=== PATIENT | male | born 1960 | race Caucasian/White ===

== ENCOUNTER 2017-04-18 12:36 | Emergency (ER) | payer OTHER ==
[2017-04-18] MEDS ORDERED: DIAZEPAM 5 MG TAB PO STA (14:56)
[2017-04-18] MEDS ORDERED: HYDROmorphone 1 MG/ML 1 ML SYRINGE IM STA (14:56)
--- NOTE | 2017-04-18 15:02 | ED ---
Back Pain HPI - General Chief Complaint: Back Pain/Injury Stated Complaint: Lower Back Pain Time Seen by Provider: 04/18/17 14:30 Source: patient, family, RN notes reviewed Limitations: no limitations - History of Present Illness Initial Comments: 56-year-old male presenting for low back pain. Patient states history of chronic low back pain. He states today he was bending over to put on his sock and he felt a pop in his right lower back. He had severe pain after this. He states he has radiation of the pain down his right leg. He states he went to the [facility] earlier today who took x-rays which they said were unremarkable. States they gave him a Toradol shot but this not seem to improve his symptoms. They're recommended to come to the ED for further evaluation. He denies any saddle paresthesias. He denies any weakness associated. States it made worse with standing and walking. It is improved with certain sitting positions. He denies any urinary incontinence. MD Complaint: back pain Onset/Timin -: hour(s) Similar Symptoms Previously: Yes Place: home Radiation: right leg Severity: severe Quality: stabbing Consistency: constant Improves With: sitting upright Worsens With: walking Context: bending Associated Symptoms: denies other symptoms Treatments Prior to Arrival: NSAIDS - Related Data Previous Rx's Medication Instructions Recorded Diazepam [Valium] 5 mg PO BID PRN #8 tab 04/18/17 HYDROcodone/APAP 5-325MG [Fountain 1 tab PO Q6HR PRN #16 tab 04/18/17 5-325] Ibuprofen [Motrin] 800 mg PO Q8HR PRN #21 tab 04/18/17 Allergies Allergy/AdvReac Type Severity Reaction Status Date / Time codeine Allergy Unknown Verified 04/18/17 15:29 Childhood Review of Systems ROS Statement: Those systems with pertinent positive or pertinent negative responses have been documented in the HPI. ROS Other: All systems not noted in ROS Statement are negative. Past Medical History Past Medical History: COPD, GERD/Reflux, Hyperlipidemia, Hypertension, Sleep Apnea/CPAP/BIPAP Additional Past Medical History / Comment(s): cpap History of Any Multi-Drug Resistant Organisms: None Reported Past Surgical History: No Surgical Hx Reported Past Psychological History: No Psychological Hx Reported Smoking Status: Current every day smoker Past Alcohol Use History: None Reported Past Drug Use History: None Reported General Exam - General Exam Comments Initial Comments: General: Awake and Alert. No acute distress. Does not appear acutely ill. Eyes: PALMER, No scleral icterus. HENT: Atraumatic, normocephalic. Mucous membranes moist. . Neck: The neck is supple, there is no tenderness or JVD. Trachea midline. Cardiovascular: Regular rate and rhythm. No murmur, rub, or gallop is appreciated. Distal pulses intact. Respiratory: Lungs are clear to auscultation bilaterally. No wheezes, rales, rhonchi. No respiratory distress. Gastrointestinal: Soft, nontender. Nondistended. Musculoskeletal: Right lower back tenderness and spasm. No gross deformity. No strength deficits. Neurological: A&Ox3. There are no obvious motor or sensory deficits. Speech is normal. No saddle paresthesias. Skin: Skin is warm and dry and no rashes or lesions are noted. Psychiatric: Cooperative, appropriate mood & affect, normal judgment. Limitations: no limitations Course Vital Signs 04/18/17 04/18/17 13:09 15:38 Temperature 98.0 F 98.1 F Pulse Rate 81 78 Respiratory 18 17 Rate Blood Pressure 138/71 142/72 O2 Sat by Pulse 95 97 Oximetry Medical Decision Making - Medical Decision Making 56-year-old male presenting for right lower back pain with radiation down the back of the right leg. Under to palpation in right lower back. [facility]. He states his imaging was unremarkable. He has not followed up with an industrial automation specialist for this in the past. Discussed recommendation for orthopedic follow-up for further evaluation and management. Discussed benefit of MRI imaging given the chronicity and acute worsening of this issue. The does not appear to be any evidence of cauda equina syndrome or acute cord compression at this time. Order for cane also provided. Discussed ice, NSAIDs , pain meds, muscle relaxers. Rx provided. Work note provided. Discussed concerning signs symptoms for immediate return to the ED. Patient and family agreeable with plan and discharge home. Disposition Clinical Impression: Right-sided low back pain with sciatica Disposition: HOME SELF-CARE Condition: Stable Instructions: Acute Low Back Pain (ED), Chronic Back Pain (ED) Additional Instructions: Please follow up with Orthopedics. Prescriptions: Diazepam [Valium] 5 mg PO BID PRN #8 tab PRN Reason: back spasm HYDROcodone/APAP 5-325MG [Fountain 5-325] 1 tab PO Q6HR PRN #16 tab PRN Reason: Pain Ibuprofen [Motrin] 800 mg PO Q8HR PRN #21 tab PRN Reason: Pain Referrals: Cecilio Georges DO [Primary Care Provider] - 1-2 days Luiz Ferro DO [Doctor of Osteopathic Medicine] - 1-2 days Time of Disposition: 15:35
[2017-04-18 15:39] VITALS: BP 142/72; PULSE 78; RESP 17; TEMP 98.1
== END 2017-04-18 15:38 | disposition home or self-care (01) ==
LOC: EC 12:36
DX: M54.41 Lumbago with sciatica, right side (principal); F17.200 Nicotine dependence, unspecified, uncomplicated; Z88.5 Allergy status to narcotic agent
CPT/HCPCS: 99283; 96372; J1170

== ENCOUNTER → 2017-05-19 | Outpatient (CLI) | payer OTHER ==
--- NOTE | 2017-05-19 10:14 | MR ---
EXAMINATION TYPE: MR lumbar spine wo con DATE OF EXAM: 05/19/2017 COMPARISON: Outside CT April 20, 2017 HISTORY: Low back pain per order. Chronic low back pain increasing in severity radiating to both legs per patient. TECHNIQUE: Multiplanar, multisequence imaging of the lumbar spine is performed without IV contrast. FINDINGS: Sagittal images of the lumbar spine show vertebral body heights and alignment to appear sat isfactory. Disc desiccation L3-L4 through L5-S1 levels is identified. Moderate disc space narrowing L 5-S1 level is redemonstrated. Posterior disc herniation L5-S1 level is seen on sagittal images. The c onus medullaris is slightly low in position ending at mid L2 level. No suspicious signal or abnormal clumping of lumbosacral nerve roots is present. The bone marrow signal intensity is within normal lester its. Mild multilevel anterior spurring is seen. Axial images show the T12-L1, L1-L2, L2-L3, and L3-L4 levels all to appear within normal limits. Axial images L4-L5 level show mild facet degenerative changes bilaterally. There is central disc prot rusion minimally effacing the anterior thecal sac. There is mild bilateral anterior inferior neural f oraminal narrowing. Axial images at L5-S1 level show broad disc bulge with broad-based central disc protrusion component on axial image 2. Spinal canal is preserved as there is prominent anterior epidural fat. There is mil d to moderate facet degenerative changes bilaterally. There is moderate right and more severe left-si ded neural foraminal narrowing identified, findings most prominent on sagittal images 4 and 5 on the left. No suspicious retroperitoneal findings are seen. IMPRESSION: Multilevel degenerative changes in the lower lumbar spine as detailed above are confirmed with most prominent findings L5-S1 level redemonstrated.
== END | disposition home or self-care (01) ==
LOC: RADMRIMAIN 08:32
PROVIDERS: ATTEND Physician Assistant Medical
DX: M47.817 Spondylosis without myelopathy or radiculopathy, lumbosacral region (principal)
CPT/HCPCS: 72148

== ENCOUNTER → 2017-10-23 | Outpatient (CLI) | payer OTHER ==
--- NOTE | 2017-10-31 11:35 | P.ARTDOP ---
Arterial Doppler LOWER EXTREMITY ARTERIAL DOPPLER: DATE OF SERVICE: 10/23/2017 Reason for study: Bilateral foot pain. Doppler waveforms: Multiphasic bilaterally throughout. Pulse volume recording: Normal configuration. Pressure gradients: Below the knee on the right and lesser so on the left. Ankle-brachial indices: 0.83 on the right and 0.96 on the left. Toe pressures: 95 on the right, 126 on the left Impression: Normal left side. Mild right-sided distal disease. Perfusion quite adequate for healing..
== END | disposition home or self-care (01) ==
LOC: RADUSWWP 12:51
PROVIDERS: ATTEND Family Medicine
DX: M54.16 Radiculopathy, lumbar region (principal)
CPT/HCPCS: 93923

== ENCOUNTER → 2018-02-07 | Outpatient (CLI) | payer OTHER ==
--- NOTE | 2018-02-07 20:28 | MR ---
EXAMINATION TYPE: MR lumbar spine wo/w con DATE OF EXAM: 02/07/2018 COMPARISON: CT 04/20/2017 and prior MRI 05/19/2017 HISTORY: 57-year-old male with lumbago, low back pain, sciatica. Technique: Multiplanar, multisequence images of the lumbar spine were obtained before and after admin istration of 12.5 mL intravenous Gadavist contrast. FINDINGS: Vertebral body heights are preserved. There is trace grade 1 retrolisthesis at L4-L5. Interval surgery with laminectomy at the L5 level and suspected interbody device at L5-S1. This cause s prominent metal artifact. Difficult to exclude some residual central disc protrusion or minimal ret ropulsion into the ventral spinal canal. Prominent enhancing scar tissue within the laminectomy bed. Of note, enhancing granulation tissue ext ends around on both sides along the epidural space and along the traversing S1 nerve roots. There is moderate right and moderate to severe left neuroforaminal stenosis at this level. At L4-L5, there is persistent bulging disc and facet degenerative change. Enhancing annular fissure i s present at this level. No significant spinal canal stenosis. Changes result in mild right and minim al inferior left neural foraminal stenosis, not significantly changed. At L3-L4, there is bulging disc with minimal inferior bilateral neural foraminal narrowing. No spinal canal stenosis. At L2-L3, no spinal canal or neuroforaminal stenosis. At L1-L2, no spinal canal or foraminal stenosis. At T12-L1, no spinal canal or neural foraminal stenosis. Conus medullaris is normal. No suspicious bone marrow replacement. Ectatic upper abdominal aorta are 2.6 cm. No prevertebral or paravertebral soft tissue abnormality se en. IMPRESSION: 1. Interval L5 laminectomy with prominent enhancing scar tissue in the laminectomy bed. 2. New blooming artifact at L5-S1 suspected to be secondary to an interbody device relating to interb jasper fusion. 3. Of note, enhancing granulation tissue at L5 extends around on both sides of the epidural space and anteriorly to encase the traversing bilateral S1 nerve roots at the L5-S1 level. 4. Similar moderate right and moderate to severe left neuroforaminal stenosis at this level. 5. No canal compromise. 6. Minimal grade 1 retrolisthesis at L4-L5 with bulging disc and posterior annular fissure.
== END | disposition home or self-care (01) ==
LOC: RADMRIMAIN 10:17
PROVIDERS: ATTEND Psychiatry & Neurology Neurology
DX: M99.73 Connective tissue and disc stenosis of intervertebral foramina of lumbar region (principal); L92.8 Other granulomatous disorders of the skin and subcutaneous tissue; Z98.890 Other specified postprocedural states
CPT/HCPCS: 72158; A9581

== ENCOUNTER → 2018-07-26 | Outpatient (CLI) | payer OTHER ==
[~2018-07-26] MED LIST: REGADENOSON 0.4 MG/5 ML SYRINGE IV ONE
--- NOTE | 2018-07-26 11:06 | P.STRESS ---
- Stress Test Note Stress Test Results/Findings: Exam Performed: NM stress lexiscan cardiolite Exam Date: 07/26/18 Reason for Exam: Chest Pain Height: 5 ft 9 in Weight: 122.47 kg Protocol: Suyapa Scan Stage: na Duration of Exercise: na Resting Heart Rate: 84 Resting Blood Pressure: 116/89 Maximum Achieved Heart Rate: 105 Maximum Achieved Blood Pressure: 134/69 85% PMHR: na 100% PMHR: na METS: na Technologist Comment: Stress Test Results/Findings: This is a 58-year-old gentleman with history of hypertension and hypercholesterolemia being evaluated for symptoms of chest pain and shortness of breath. Patient also has history of smoking. Stress data: Baseline EKG showed sinus rhythm with normal ME and 20, QRS duration. Blood pressure at rest is 116/89, pulse rate of 84. Occasional PVCs were noted. A standard dose of Lexiscan was infused. EKGs taken during and after the infusion did not reveal any significant changes of ischemia. Final impression: #1. Negative Lexiscan stress test #2. Report on the nuclear images to be given by the radiologist.
--- NOTE | 2018-07-26 12:09 | NM ---
EXAMINATION TYPE: NM stress lexiscan cardiolite DATE OF EXAM: 07/26/2018 COMPARISON: NONE HISTORY: History of hypertension, hypercholesteremia, tobacco use, COPD, asthma, and family history o f heart attack presents with chest pain TECHNIQUE: After the intravenous administration of 10.29 mCi Tc 99m Sestamibi - Cardiolite resting S PECT images acquired 45 minutes post injection. The patient received 0.4mg Lexiscan, 24.8 mCi Tc 99m Sestamibi - Stress images obtained [address] injection FINDINGS: Review of stress and rest SPECT images demonstrates no distinct perfusion abnormality. Gated analysi s shows normal wall motion with an estimated left ventricular ejection fraction of 66 %. IMPRESSION: No convincing scintigraphic evidence for reversible ischemia.
--- NOTE | 2018-07-26 15:47 | EST ---
Stress Test Results/Findings: Exam Performed: NM stress lexiscan cardiolite Exam Date: 07/26/18 Reason for Exam: Chest Pain Height: 5 ft 9 in Weight: 122.47 kg Protocol: Suyapa Scan Stage: na Duration of Exercise: na Resting Heart Rate: 84 Resting Blood Pressure: 116/89 Maximum Achieved Heart Rate: 105 Maximum Achieved Blood Pressure: 134/69 85% PMHR: na 100% PMHR: na METS: na Technologist Comment: Stress Test Results/Findings: This is a 58-year-old gentleman with history of hypertension and hypercholesterolemia being evaluated for symptoms of chest pain and shortness of breath. Patient also has history of smoking. Stress data: Baseline EKG showed sinus rhythm with normal AK and 20, QRS duration. Blood pressure at rest is 116/89, pulse rate of 84. Occasional PVCs were noted. A standard dose of Lexiscan was infused. EKGs taken during and after the infusion did not reveal any significant changes of ischemia. Final impression: #1. Negative Lexiscan stress test #2. Report on the nuclear images to be given by the radiologist. BRIAN
== END | disposition home or self-care (01) ==
LOC: RADNMMAIN 08:26
PROVIDERS: ATTEND Physician Assistant Medical
DX: R07.9 Chest pain, unspecified (principal); Z88.5 Allergy status to narcotic agent; Z88.6 Allergy status to analgesic agent; Z88.8 Allergy status to other drugs, medicaments and biological substances
CPT/HCPCS: 93017; 78452; A9500; J2785

== ENCOUNTER → 2018-09-10 | Outpatient (CLI) | payer OTHER ==
[2018-09-05 16:10] VITALS: BMI 40.1
[2018-09-10 12:06] VITALS: BP 124/84; PULSE 102; RESP 16
--- NOTE | 2018-09-10 13:19 | P.PAINCN ---
History of Present Illness - Reason for Consult Consult date: 09/10/18 - History of Present Illness This is initial consultation for this 58 years old male with a chronic history of severe low back pain, with radiation to the lower extremity bilaterally, patient had lumbar fusion surgery done in May 2017, and he reported that his low back pain improved significantly after the back surgery, currently he is complaining of severe bilateral pain radiating from the buttock area towards the lower extremity bilaterally associated with some numbness and tingling sensation, the pain into the intensity interfering with her quality of life, has done extensive physical therapy, including heat on his back and stretching exercises and acupuncture, all failed to relieve his lower extremity pain,, he denies any fever or night sweats with he denies any change in the bowel movements or urination Past Medical History Past Medical History: COPD, Diabetes Mellitus, GERD/Reflux, Hyperlipidemia, Hypertension, Sleep Apnea/CPAP/BIPAP Additional Past Medical History / Comment(s): cpap with O2 , Chronic back pain, hx of jaw fx 1979 History of Any Multi-Drug Resistant Organisms: None Reported Past Surgical History: Back Surgery Additional Past Surgical History / Comment(s): lumbar surgery Past Anesthesia/Blood Transfusion Reactions: No Reported Reaction Past Psychological History: No Psychological Hx Reported Smoking Status: Current every day smoker Past Alcohol Use History: None Reported Additional Past Alcohol Use History / Comment(s): smokes one and 1/2ppd from teens Past Drug Use History: None Reported - Past Family History Mother Family Medical History: No Reported History Medications and Allergies Home Medications Medication Instructions Recorded Confirmed Type Albuterol Inhaler [Ventolin Hfa 2 puff INHALATION DAILY PRN 08/14/18 09/05/18 History Inhaler] Simvastatin 80 mg PO DAILY 08/14/18 09/05/18 History metFORMIN HCL [Glucophage] 500 mg PO BID 08/14/18 09/05/18 History Albuterol Nebulized [Ventolin 2.5 mg INHALATION Q4H PRN 09/05/18 09/05/18 History Nebulized] Budesonide-Formot 160-4.5 Mcg 2 puff INHALATION BID 09/05/18 09/05/18 History [Symbicort 160-4.5 Mcg Inhaler] Cholecalciferol (Vitamin D3) 2,000 unit PO DAILY 09/05/18 09/05/18 History [Vitamin D3] Cyanocobalamin (Vitamin B-12) 1,000 mcg PO DAILY 09/05/18 09/05/18 History [Vitamin B-12] Lisinopril-Hctz 20-25 mg 1 tab PO DAILY 09/05/18 09/05/18 History [Zestoretic 20-25] Meloxicam [Mobic] 7.5 mg PO BID 09/05/18 09/05/18 History Naproxen Sodium [Aleve] 220 mg PO Q6H PRN 09/05/18 09/05/18 History Omeprazole 20 mg PO DAILY 09/05/18 09/05/18 History Allergies Allergy/AdvReac Type Severity Reaction Status Date / Time bupropion [From Wellbutrin] Allergy Nausea & Unverified 08/14/18 13:55 Vomiting codeine Allergy Unknown Verified 08/14/18 13:55 Childhood gabapentin Allergy Nausea & Unverified 09/05/18 16:03 Vomiting/dizzyness pregabalin Allergy Nausea & Unverified 08/14/18 13:55 Vomiting tramadol Allergy Nausea & Unverified 08/14/18 13:55 Vomiting Physical Exam Vitals: Vital Signs Pulse Resp BP Pulse Ox 09/10/18 11:52 102 H 16 124/84 94 L Social history : smoker , NO ETOH , NO Illegal drugs use . Review of Systems : 1- Constitutional : no chills , no fever , no night sweats , 2- Ears : no ear discharge , no change in hearing 3-Nose, Mouth ,Throat ; no bleeding gums, no sore throat , no epistaxis , 4-Cardiovascular : Denies chest pain, , no orthopnea , no palpitation 5-Respiratory : Denies cough , no dyspnea , no hemoptysis 6-Gastrointestinal :, no change in bowel habits , no coffee- ground emesis . 7-Genitourinary : No hematuria , no discharge , no incontinence, 8-Musculoskeletal :++ gait dysfunction , report lower extremity pain , 9- Neurological : no ataxia , no tremor , no sezure , 10-Psychatric , no suicidal ideation no hallucination 11- Endocrine : no cold intolerence , no polyuria , no polydypsia , 12-Hematologic : no easy bleeding , no easy brusing , 13-Allergic / immunology : no angioedema , no wheezing ,no allergic rhinitis 14-Integumentary : no brttle nails , no change hair / nails , no foot/leg ulcers . Physical Examinations : 1-Constitutional : Cooperative , not in acute distress . 2-HEENT : nech ; supple , no Lymphadenopathy , no Thyromegaly , :eyes , no icterus, no photophobia . ENT : , normal oropharynx , no Thrush 3- Respiratory : Chest clear to auscultations Bilaterally , no wheezing . 4- Cardiovascular : regular rate and rhythem , S1 , S2 , no S3 , no S4. 5- Gastrointestinal: abdomen soft no tenderness , no organomegally . 6- Genitourinary : Defferred . 7-Integumentary : No cellulitis , no ulcers , normal skin turgor , no cyanotic . 8- neurologic : Cranial nerve II to XII intact , no focal neurological deffecit 9-psychatric : alert , oriented X 3 , appropriate affect , intact judgment and insight . 10-Lymphatic : no Lymphadenopathy. 11- musculoskeltal: normal gait Lumber spine moter stegnth lower extremities ,thigh and legs 5/5 Right side , 5/5 Left side deep tendon reflexes : normal Knee Jerk , normal ankle Jerk positive lumber facet Loading Test Range of motion of the lumbar spine Flexion 30 degrees, extension 10 degrees strait leg raising test , positive at 45degree Fabere test positive RT and positive LT . Sever tenderness over the piriformis muscles bilaterally Allodynia and paresthesia L3 and L4 dermatomal distribution Results Comments: MRI of the lumbar spine L5-S1 laminectomy and L3 4 neural foraminal narrowing, and some spondylosis lumbar spine Assessment and Plan Plan: Assessment and plan= 1-piriformis muscle syndrome bilaterally. 2-lumbar radiculopathy since L3-4 dermatomal distribution 3-lumbar spondylosis. Patient will be good candidate to have bilateral piriformis muscle injections , but because side effect of the injection could cause some muscle weakness, could last for a few hours after the injection could become problematic taking care of this patient, the best option is to do , one side at a time then we will evaluate her response, patient will have right side performance muscle a block , Recommend continued physical therapy, Bernard could benefit from muscle relaxant Zanaflex 4 mg twice a day Recommend to discontinue naproxen or Mobic , patient can take only one of this medication at one time , he he shouldn't take both at the same time. If patient has no improvement of his pain after the piriformis muscle injection, then will consider doing transforaminal epidural steroid injection at the L3 4 level Time with Patient: Greater than 30 PQRS Measure Charge Sheet Measure #130: Documentation of Current Meds in Medical Chart: Patient's medications documented in chart Measure #226: Tobacco Use: Screen & Cessation Intervention: Pt screened for tobacco use AND intervention given Measure #111: Pneumonia Vaccination: Pneumococcal vaccine administered or previously received Measure #47: Advance Care Plan: Advance care planning discussed & documented, pt chose/unable to give Measure #412: Opioid Treatment Agreement: No documentation of signed opioid treatment agreement Measure #408: Opioid Therapy Follow-up Evaluation: Patient had NO f/u eval minimum every 3 months during opioid therapy Measure #317: Preventitive Care & Scrn High Bld Press & F/U: Normal blood pressure, f/u not required Measure #128: Body Mass Index (BMI) Screening & Follow-up: BMI documented ABOVE normal parameters - f/u documented Measure #131: Pain Assessment & Follow-up: Pain positive & plan documented, Follow-up scheduled Measure #431: Unhealthy Alcohol Use Preventative Care & Scrn: Patient not identified as an unhealthy alcohol user PQRS Narrative: Smoking Status Current every day smoker Do You Want the Pneumonia Vaccine Up to Date Vaccine AT THIS TIME? Blood Pressure 124/84 Pain Intensity [Bilateral 8 Buttock] Scale Used Numeric (1 - 10) Hx Alcohol Use (MH) No Home Medications: Ambulatory Orders Albuterol Inhaler [Ventolin Hfa Inhaler] 2 puff INHALATION DAILY PRN 08/14/18 Simvastatin 80 mg PO DAILY 08/14/18 metFORMIN HCL [Glucophage] 500 mg PO BID 08/14/18 Albuterol Nebulized [Ventolin Nebulized] 2.5 mg INHALATION Q4H PRN 09/05/18 Budesonide-Formot 160-4.5 Mcg [Symbicort 160-4.5 Mcg Inhaler] 2 puff INHALATION BID 09/05/18 Cholecalciferol (Vitamin D3) [Vitamin D3] 2,000 unit PO DAILY 09/05/18 Cyanocobalamin (Vitamin B-12) [Vitamin B-12] 1,000 mcg PO DAILY 09/05/18 Lisinopril-Hctz 20-25 mg [Zestoretic 20-25] 1 tab PO DAILY 09/05/18 Meloxicam [Mobic] 7.5 mg PO BID 09/05/18 Naproxen Sodium [Aleve] 220 mg PO Q6H PRN 09/05/18 Omeprazole 20 mg PO DAILY 09/05/18
== END | disposition home or self-care (01) ==
LOC: PNWHC3 11:35
PROVIDERS: ATTEND Specialist
DX: M99.73 Connective tissue and disc stenosis of intervertebral foramina of lumbar region (principal); G57.03 Lesion of sciatic nerve, bilateral lower limbs; M47.26 Other spondylosis with radiculopathy, lumbar region; J44.9 Chronic obstructive pulmonary disease, unspecified; E11.9 Type 2 diabetes mellitus without complications; K21.9 Gastro-esophageal reflux disease without esophagitis; E78.5 Hyperlipidemia, unspecified; I10 Essential (primary) hypertension; F17.210 Nicotine dependence, cigarettes, uncomplicated; Z98.1 Arthrodesis status; Z98.890 Other specified postprocedural states; Z79.84 Long term (current) use of oral hypoglycemic drugs; Z79.51 Long term (current) use of inhaled steroids; Z79.1 Long term (current) use of non-steroidal anti-inflammatories (NSAID); Z79.899 Other long term (current) drug therapy; Z88.5 Allergy status to narcotic agent; Z88.8 Allergy status to other drugs, medicaments and biological substances
CPT/HCPCS: 99211

== ENCOUNTER → 2018-10-01 | Day surgery (SDC) | payer OTHER ==
[2018-09-23 11:24] VITALS: BMI 33.5
[~2018-10-01] MED LIST changes: -REGADENOSON 0.4 MG/5 ML SYRINGE IV ONE; +SODIUM CHLORIDE 0.9% 250 ML IV ONE; +SODIUM CHLORIDE 0.9% 500 ML 500 ML IV SCH
[2018-10-01 07:15] VITALS: RESP 18; TEMP 98.1
[2018-10-01 07:22] LABS: Glucose,Whole Blood 152 mg/dL (75-99)
--- NOTE | 2018-10-01 08:51 | P.PCN ---
Date of Procedure: 10/01/18 Procedure(s) Performed: Bilateral piriformis muscle syndrome Postoperative Diagnosis: Same as above Procedure(s) Performed: Bilateral piriformis muscles injection under fluoroscopic guidance Anesthesia: moderate conscious sedation with fentanyl 50 mcg and Versed 2 mg . Surgeon: Karl Pathology: none sent Condition: stable Disposition: PACU Description of Procedure: The patient was seen in preop holding area consent was obtained then he was brought into the procedure room and placed in prone position. Skin over the right buttock area was prepped with Betadine x3 , and draped in a sterile manner. The fluroscopy was used to identify the right greater trochanter and the inferior border of the lateral sacrum on the right side, and the target point was at the laterral part of this line. I used 5 inch 22-gauge block needle to go perpendicular to the skin into the right piriformis muscle. 1 mL of Isovue was given which showed the typical spread inside the body of the piriformis muscle transversely , then using the nerve stimulator was able to get localized contractions in the buttock area at 0.5 m amp , and patient felt the pain that is similar to his original pain ,I then injected a 8 mls of Ropivacaine 0.5% +20 mg of Kenalog. Then the exact same procedure was done from the left side to do the left piriformis muscle injection, Patient tolerated procedure well and reported almost immediate improvement of his pain. The patient was taken to PACU in stable condition. The left-side will be done next.
--- NOTE | 2018-10-01 08:59 | FL ---
EXAMINATION TYPE: FL guided needle localization DATE OF EXAM: 10/01/2018 HISTORY: Pain 22 SEC FL, 2 FILMS MTDD
[2018-10-01 09:19] VITALS: BP 144/78; PULSE 78
== END | disposition home or self-care (01) ==
LOC: ORPAIN 06:51
PROVIDERS: ATTEND Specialist
DX: G57.03 Lesion of sciatic nerve, bilateral lower limbs (principal); I10 Essential (primary) hypertension; J44.9 Chronic obstructive pulmonary disease, unspecified; G47.33 Obstructive sleep apnea (adult) (pediatric); E11.9 Type 2 diabetes mellitus without complications; Z88.5 Allergy status to narcotic agent; Z88.8 Allergy status to other drugs, medicaments and biological substances
CPT/HCPCS: 77002; 20552; J2250; J1030; J3010; Q9966; 20550; 99152

== ENCOUNTER → 2018-11-06 | Outpatient (CLI) | payer OTHER ==
[2018-11-06 13:33] VITALS: PULSE 88; RESP 18
--- NOTE | 2018-11-06 14:02 | P.PN ---
Subjective Progress Note Date: 11/06/18 This is a 58-year-old gentleman with history of chronic lower back pain status post back surgery. The patient had peripheral as possible injection twice on both sides which didn't help improve his thigh pain bilaterally significantly. His most complaint today is axial lower back pain and upper buttock area. Today, pt denies new-onset weakness, bowel/bladder incontinence, or any other signs or symptoms of cauda equina syndrome. There are no signs of acute intoxication, and no indications of medication diversion or overuse. In addition to above, 13-point review of systems is also negative for chest pain , shortness of breath, changes in vision, changes in hearing, new onset weakness , abdominal pain, diarrhea, extreme fatigue, malaise, fever, skin changes, homicidal or suicidal ideation, or bowel or bladder incontinence. Vital Signs: Reviewed in EMR Gen: AAOx3, NAD HEENT: PERRLA,hearing grossly normal Pulm: resp unlabored,CTA Heart:S1,S2, No Mur Neck: supple, trachea midline Neuro exam of the lower extremities: Decreased left knee reflex, absent ankle reflexes bilaterally, decreased but symmetrical muscle strength to 4 out of 5 bilaterally Straight leg raising test: Negative bilaterally Facet loading test: Positive Tenderness in the paravertebral musculature: Positive on the lumbar paravertebral area bilaterally Neuro: CN II-XII grossly intact, Imaging: Reviewed in EMR/chart Assessment: Lumbar spondylosis without myelopathy Lumbar postlaminectomy pain syndrome Piriformis muscle syndrome bilaterally Morbid obesity Type 2 diabetes Tobacco abuse Plan: 1. Explanation: No opioids are prescribed 2. Opioid agreement: Signed with the patient and the patient is warned not to use opioids while driving or before driving and not to combine opioids with benzodiazepines or alcohol. 3. Counseling: The patient was counseled extensively on SMOKING CESSATION, BODY MASS INDEX, EXERCISE. Specifically, the patient was instructed regarding the importance of smoking cessation, obesity, and exercise in the context of both chronic pain and overall health. 4. Procedures: Scheduled for lumbar diagnostic medial branch block bilaterally under fluoroscopic guidance. If the hardware obscures the view then this procedure can be done above the hardware level 5. Consultations: None 6. Investigations: None 7. Medications: Continue Zanaflex 4 mg up to 3 times a day if needed 8. Disposition: Return to the above-mentioned procedure as soon as possible. The patient is approved by the [facility] for only 5 more visits 9. Maps were reviewed and were appropriate. PQRS measures: 1-Patient's medications are documented in the chart. 2-Tobacco use is negative, counseling given 3-Patient has not had a pneumococcal vaccine. 4-Advanced care planning discussed, patient unable to give 5-Opioid contract not signed with the patient. 6-Pain positive, follow-up visit or procedure scheduled 7-Patient's blood pressure measured and documented within normal limits. 8-Patient's weight was measured, and body mass index ABOVE the normal limits, and counseling was done. Patient instructed to follow up with PCP. 9-Patient WAS NOT identified as an unhealthy alcohol user. Objective - Vital Signs Vital signs: Vital Signs Temp Pulse 88 11/06/18 13:26 Resp 18 11/06/18 13:26 BP Pulse Ox 96 11/06/18 13:26 Intake & Output 11/05/18 11/06/18 11/06/18 18:59 06:59 18:59 Weight 113.398 kg
== END ==
LOC: PNWHC3 13:10
PROVIDERS: ATTEND Anesthesiology
DX: G89.29 Other chronic pain (principal); M47.816 Spondylosis without myelopathy or radiculopathy, lumbar region; M96.1 Postlaminectomy syndrome, not elsewhere classified; E66.01 Morbid (severe) obesity due to excess calories; E11.9 Type 2 diabetes mellitus without complications; G57.03 Lesion of sciatic nerve, bilateral lower limbs; Z72.0 Tobacco use; Z79.899 Other long term (current) drug therapy
CPT/HCPCS: 99211

== ENCOUNTER 2018-11-07 09:50 | Day surgery (SDC) | payer OTHER ==
[2018-11-07] MEDS ORDERED: LIDOCAINE 1% 20 ML VIAL (10MG/ML) FOR IV START INTRADERMA ONE (10:21)
[2018-11-07 10:36] VITALS: TEMP 97.5
[2018-11-07 10:43] LABS: Glucose,Whole Blood 148 mg/dL (75-99)
[2018-11-07] MEDS ORDERED: LACTATED RINGERS 1,000 ML IV ONE (10:45)
--- NOTE | 2018-11-07 11:39 | P.PCN ---
Date of Procedure: 11/07/18 Procedure(s) Performed: PREOPERATIVE DIAGNOSIS : 1- Lumbar spondylosis with Facet Arthropathy without myelopathy . 2- Lumber postlaminectomy pain syndrome. 3-pyriformis muscle syndrome POSTOPERATIVE DIAGNOSIS: Same as pre operative diagnoses. PROCEDURE: Diagnostic bilateral L3 -4 , L4 -5 , and L5-S1 medial branch block under fluoroscopy ANESTHESIA: Local with Ropivacain 0.5 % 6 ml , moderate sedation with intravenous Versed 2 mg and Fentanyl 50 mcg. EBL: Minimal COMPLICATION: None. IV FLUIDS: 100 mL of normal saline. PROCEDURE INDICATION: Chronic low back pain secondary to Facet arthropathy unresponsive to conservative treatment. PROCEDURE DESCRIPTION: the patient was seen and identified in the preop holding area , risks and benefits and possible complications of the procedure and alternative were discussed with the patient, and the patient agreed to proceed with the procedure and signed the consent IV was started and vital signs monitored during the procedure and fluoroscopy was used to maximize the benefit and accuracy of the needle placement, and sedation was given to decrease patient anxiety, patient was taken to the procedure room and placed in prone position vital signs monitored in the back prepped with chlorhexidine X3 then under strict sterile technique using a right oblique fluoroscopy ,the junction of the transverse process and the superior articulating process of the right L3- 4 , L4- 5, and L5-S1 vertebra which corresponding to the fluoroscopy image of the eye of the Rob dog on the block side for the medial branches and subsequently , after local infiltration of skin and subcu tissuies with Ropivacaine 0.5 % , one mL at each level , then 22-gauge Quincke-type needles , 3 needle was used , each one of them placed at the junction of the base of the transverse process and the superior articular process at the appropriate level, and the needle was advanced until the periosteum contacted, needle placement confirmed with AP oblique and lateral view and after appropriate needle placement confirmed, and after negative aspiration for heme and CSF and there was no paresthesia 1-1/2 mL of Ropivacaine 0.5% mixed with 20 mg Depo-Medrol , then half mL injected at each level after negative aspiration the needle subsequently removed and the same procedure repeated for the left side at left side at L3-4, L4- 5 and L5-S1 levels. At the end of the procedure and the needles removed and a bandage applied after the skin was cleaned the cleaning solution patient taken to recovery room in stable condition and monitors in the recovery room for 20-30 minutes and discharged home in stable condition after discharge criteria met and patient will follow up with the pain clinic in 2-4 weeks Recommend using 5 inch needles for the next procedure
[2018-11-07] MEDS ORDERED: IV FLUID CONTINUATION 1,000 ML IV ONE (11:43)
--- NOTE | 2018-11-07 11:57 | FL ---
EXAMINATION TYPE: FL guided pain mgmt statistic DATE OF EXAM: 11/07/2018 HISTORY: Pain 17 SEC FLUORO, 4 IMAGES SCANNED
[2018-11-07 12:00] VITALS: BP 139/76; PULSE 92; RESP 16
== END 2018-11-07 12:20 | disposition home or self-care (01) ==
LOC: ORPAIN 09:50
PROVIDERS: ATTEND Specialist
DX: G89.29 Other chronic pain (principal); M47.816 Spondylosis without myelopathy or radiculopathy, lumbar region; M96.1 Postlaminectomy syndrome, not elsewhere classified; G57.03 Lesion of sciatic nerve, bilateral lower limbs; E66.01 Morbid (severe) obesity due to excess calories; Z68.35 Body mass index [BMI] 35.0-35.9, adult; E11.9 Type 2 diabetes mellitus without complications; Z72.0 Tobacco use; Z79.899 Other long term (current) drug therapy
CPT/HCPCS: 64493; 64494; 64495; J2250; J1030; J3010; 99152

== ENCOUNTER 2018-11-20 07:18 | Day surgery (SDC) | payer OTHER ==
[~2018-11-20 07:18] MED LIST changes: -SODIUM CHLORIDE 0.9% 250 ML IV ONE
[2018-11-20 08:31] VITALS: RESP 16; TEMP 96.1
[2018-11-20] MEDS ORDERED: LIDOCAINE 1% 20 ML VIAL (10MG/ML) FOR IV START INTRADERMA ONE (08:31)
[2018-11-20] MEDS ORDERED: LACTATED RINGERS 1,000 ML IV ONE (08:31)
[2018-11-20 08:34] LABS: Glucose,Whole Blood 160 mg/dL (75-99)
[2018-11-20] MEDS ORDERED: IV FLUID CONTINUATION 1,000 ML IV ONE (09:52)
--- NOTE | 2018-11-20 10:08 | FL ---
EXAMINATION TYPE: FL guided pain mgmt statistic DATE OF EXAM: 11/20/2018 CLINICAL HISTORY: Low back pain. TECHNIQUE: Fluoroscopy. COMPARISON: None. FINDINGS: Fluoroscopic guidance was provided during pain relief procedure performed by Dr. Montgomery. A total of 17 seconds of fluoroscopic time was utilized during the procedure and 5 spot images are ac quired. Images acquired shows needle localization at several levels in the bilateral back. IMPRESSION: As Above.
[2018-11-20 10:17] VITALS: BP 133/76; PULSE 76
--- NOTE | 2018-11-27 07:41 | P.PCN ---
Date of Procedure: 11/20/18 Description of Procedure: DESCRIPTION OF PROCEDURE(S): PROCEDURE: Bilateral lumbar medial branch block L3-L4, L4-L5, L5-S1 with fluoroscopy PREOPERATIVE DIAGNOSIS : 1- Lumbar spondylosis with Facet Arthropathy without myelopathy . 2- Lumber degenerative disc disease POSTOPERATIVE DIAGNOSIS: 1- Lumbar spondylosis with Facet Arthropathy without myelopathy . 2- Lumber degenerative disc disease PROCEDURE: Diagnostic bilateral L3-4, L4-5, and L5-S1 medial branch block under fluoroscopy ANESTHESIA: IV sedation with Versed 2 mg and Fentanyl 50 mcg. COMPLICATION: None. IV FLUIDS: 100 mL of normal saline. PROCEDURE INDICATION: Chronic low back pain secondary to Facet arthropathy unresponsive to conservative treatment. PROCEDURE DESCRIPTION: the patient was seen and identified in the preop holding area , risks and benefits and possible complications of the procedure and alternative were discussed with the patient, and the patient agreed to proceed with the procedure and signed the consent IV was started and vital signs monitored during the procedure and fluoroscopy was used to maximize the benefit and accuracy of the needle placement, and sedation was given to decrease patient anxiety, patient was taken to the procedure room and placed in prone position vital signs monitored in the back prepped with chlorhexidine X3 then under strict sterile technique using a right oblique fluoroscopy ,the junction of the transverse process and the superior articulating process of the right L3- 4 , L4- 5, and L5-S1 vertebra which corresponding to the fluoroscopy image of the eye of the Rob dog on the block side for the medial branches and subsequently , a 25-gauge Quincke-type needle was used and each time placed at the junction of the base of the transverse process and the superior articular process at the appropriate level L3, L4, L5, S1 pedicle. The needle was advanced until the periosteum contacted , needle placement confirmed with AP oblique and lateral view and after appropriate needle placement confirmed, and after negative aspiration for heme and CSF and there was no paresthesia 1-1/2 mL of Marcaine 0.5% mixed with 40 mg Kenalog , then half mL injected at each level after negative aspiration the needle subsequently removed and the same procedure repeated for the left side at left side at L3-4, L4- 5 and L5-S1 levels. At the end of the procedure and the needles removed and a bandage applied after the skin was cleaned the cleaning solution patient taken to recovery room in stable condition and monitors in the recovery room for 20-30 minutes and discharged home in stable condition after discharge criteria met and patient will return for radiofrequency ablation of the right L3-L4, L4-L5, L5-S1 medial branches.
== END 2018-11-20 10:41 | disposition home or self-care (01) ==
LOC: ORPAIN 07:18
PROVIDERS: ATTEND Anesthesiology
DX: M47.26 Other spondylosis with radiculopathy, lumbar region (principal); M51.36 Other intervertebral disc degeneration, lumbar region
CPT/HCPCS: 64493; 64494; 64495; J2250; J3301; J3010; 64635; 64636; 99152

== ENCOUNTER → 2018-12-19 | Outpatient (CLI) | payer OTHER ==
[2018-12-19 11:45] VITALS: BP 133/87; PULSE 78; RESP 16
--- NOTE | 2018-12-19 12:01 | P.PN ---
Progress Note - Text This is a 58-year-old gentleman with history of chronic lower back pain status post back surgery. The patient had significant relief of pain after the diagnostic lumbar medial branch block with more than 50% of improvement. He is willing to proceed with lumbar medial branch RFA and we will start by doing the right side first. Today, pt denies new-onset weakness, bowel/bladder incontinence, or any other signs or symptoms of cauda equina syndrome. There are no signs of acute intoxication, and no indications of medication diversion or overuse. In addition to above, 13-point review of systems is also negative for chest pain , shortness of breath, changes in vision, changes in hearing, new onset weakness , abdominal pain, diarrhea, extreme fatigue, malaise, fever, skin changes, homicidal or suicidal ideation, or bowel or bladder incontinence. Vital Signs: Reviewed in EMR Gen: AAOx3, NAD HEENT: PERRLA,hearing grossly normal Pulm: resp unlabored,CTA Heart:S1,S2, No Mur Neck: supple, trachea midline Neuro exam of the lower extremities: Decreased left knee reflex, absent ankle reflexes bilaterally, normal muscle strength bilaterally Straight leg raising test: Negative bilaterally Facet loading test: Positive Tenderness in the paravertebral musculature: Positive on the lumbar paravertebral area bilaterally Positive tenderness around the right sacroiliac joint Neuro: CN II-XII grossly intact, Imaging: Reviewed in EMR/chart Assessment: Lumbar spondylosis without myelopathy Lumbar postlaminectomy pain syndrome Right sacroiliitis Piriformis muscle syndrome bilaterally Morbid obesity Type 2 diabetes Tobacco abuse Plan: 1. Explanation: No opioids are prescribed 2. Opioid agreement: Signed with the patient and the patient is warned not to use opioids while driving or before driving and not to combine opioids with benzodiazepines or alcohol. 3. Counseling: The patient was counseled extensively on SMOKING CESSATION, BODY MASS INDEX, EXERCISE. Specifically, the patient was instructed regarding the importance of smoking cessation, obesity, and exercise in the context of both chronic pain and overall health. 4. Procedures: Scheduled for lumbar medial branch RFA for levels L3 4, L4-L5, and L5-S1 on the right side. The patient also may benefit from getting right sacroiliac joint steroid injection in the future. 5. Consultations: None 6. Investigations: None 7. Medications: No meds prescribed today 8. Disposition: Return to the above-mentioned procedure as soon as possible. The patient is approved by the [facility] for only 5 more visits 9. Maps were reviewed and were appropriate. PQRS measures: 1-Patient's medications are documented in the chart. 2-Tobacco use is negative, counseling given 3-Patient has not had a pneumococcal vaccine. 4-Advanced care planning discussed, patient unable to give 5-Opioid contract not signed with the patient. 6-Pain positive, follow-up visit or procedure scheduled 7-Patient's blood pressure measured and documented within normal limits. 8-Patient's weight was measured, and body mass index ABOVE the normal limits, and counseling was done. Patient instructed to follow up with PCP. 9-Patient WAS NOT identified as an unhealthy alcohol user.
== END | disposition home or self-care (01) ==
LOC: PNWHC3 11:17
PROVIDERS: ATTEND Anesthesiology
DX: G89.29 Other chronic pain (principal); M54.5 Low back pain; M47.816 Spondylosis without myelopathy or radiculopathy, lumbar region; M96.1 Postlaminectomy syndrome, not elsewhere classified; M46.1 Sacroiliitis, not elsewhere classified; G57.03 Lesion of sciatic nerve, bilateral lower limbs; F17.290 Nicotine dependence, other tobacco product, uncomplicated; E66.01 Morbid (severe) obesity due to excess calories; E11.9 Type 2 diabetes mellitus without complications; Z71.6 Tobacco abuse counseling; Z98.890 Other specified postprocedural states; Z68.39 Body mass index [BMI] 39.0-39.9, adult
CPT/HCPCS: 99211

== ENCOUNTER 2018-12-26 05:54 | Day surgery (SDC) | payer OTHER ==
[2018-12-24 14:30] VITALS: BMI 39.0
[2018-12-26 07:15] VITALS: TEMP 98.9
[2018-12-26] MEDS ORDERED: LACTATED RINGERS 1,000 ML IV ONE (07:29)
[2018-12-26] MEDS ORDERED: LIDOCAINE 1% 20 ML VIAL (10MG/ML) FOR IV START INTRADERMA ONE (07:29)
[2018-12-26 07:41] LABS: Glucose,Whole Blood 187 mg/dL (75-99)
--- NOTE | 2018-12-26 08:02 | P.PCN ---
Date of Procedure: 12/26/18 Anesthesia: MAC (Conscious sedation) Description of Procedure: PREOPERATIVE DIAGNOSIS: Lumbar Facet Arthropathy. POSTOPERATIVE DIAGNOSIS: Lumbar Facet Arthropathy. PROCEDURES : Right Radiofrequency thermocoagulation, L3, L4, and L5 medial branch, with fluoroscopic guidance ANESTHESIA: IV sedation with versed and fentanyl and local infiltration with lidocaine 1% 10 ml EBL: Minimal PROCEDURE INDICATION: The patient with low back pain secondary to lumbar facet arthropathy who had more than 50% relief of pain with previous diagnostic lumbar medial branch block with local anesthetic. PROCEDURE DESCRIPTION / TECHNIQUE: The patient was seen and identified in the preoperative area. Risks, benefits, complications, including but not limited to risk of infection ,bleeding , allergic reactions to the medications and no complete pain relief , and alternatives were discussed with the patient, the patient agreed to proceed with the procedure and signed the consent. IV was started. Vital signs remained stable throughout the procedure. Patient was taken to the OR and time out was completed. The patient was placed in the prone position on the procedure table. The lumber area was prepped and draped in the usual sterile fashion. Vital signs were closely monitored during the procedure .IV sedation was used during the procedure to decrease patient anxiety. Using AP and then oblique fluoroscopy, the eye of the Rob dog corresponding to the connection between the superior and transverse articular processes of right L3, L4, and L5 were identified, marked, and localized with 1% lidocaine. Subsequently, a 20 -xo radiofrequency cannula with a 10-mm active tip was advanced guided by fluoroscopy to each of the eyes of the Rob dog at L3 , L4, and L5. Each site then underwent sensory testing at 50 Hz and 0 to 1 volt and motor testing at 2.5 Hz and 0 to 3 volt with local stimulation, but no radicular symptoms down the legs. Thereafter the L3, L4, and L5 sites underwent radiofrequency thermocoagulation at 80 degrees celsius for 90 seconds after injecting 0.5 ml of PF lidocaine 1%. Then after the thermocoagulation was done , 1 ml of the block solution containing marcaine 0.5 % was injected at the right L3 , L4 , and L5, levels after negative aspiration of CSF and blood and with no paresthesias. Cannulas were retracted. At the end of the procedure, the skin was cleansed and bandages were applied. COMPLICATIONS: No acute complications. DISPOSITION / PLANS: The patient was placed in a supine position and transferred to the recovery area in a stable condition for observation and was discharged from the recovery room after meeting discharge criteria. Home discharge instructions given to the patient by the staff. The patient was reexamined prior to discharge. We will perform a left-sided radiofrequency ablation in 1-2 weeks
[2018-12-26] MEDS ORDERED: IV FLUID CONTINUATION 1,000 ML IV ONE (08:06)
[2018-12-26 08:10] VITALS: RESP 18
[2018-12-26 08:20] VITALS: BP 160/58; PULSE 89
--- NOTE | 2018-12-26 09:02 | FL ---
EXAMINATION TYPE: FL guided pain mgmt statistic DATE OF EXAM: 12/26/2018 HISTORY: Pain rt side radio freq with dr. osman supervising. 8 secs fl and 2 paper images scanned
== END 2018-12-26 08:42 | disposition home or self-care (01) ==
LOC: ORPAIN 05:54
PROVIDERS: ATTEND Hospitalist
DX: G89.29 Other chronic pain (principal); M47.816 Spondylosis without myelopathy or radiculopathy, lumbar region; M96.1 Postlaminectomy syndrome, not elsewhere classified; M46.1 Sacroiliitis, not elsewhere classified; G57.03 Lesion of sciatic nerve, bilateral lower limbs; E66.01 Morbid (severe) obesity due to excess calories; Z68.39 Body mass index [BMI] 39.0-39.9, adult; E11.9 Type 2 diabetes mellitus without complications; Z72.0 Tobacco use; Z88.5 Allergy status to narcotic agent; Z88.8 Allergy status to other drugs, medicaments and biological substances
CPT/HCPCS: 64635; 64636; J2001; J3010; 99152

== ENCOUNTER 2019-01-09 08:27 | Day surgery (SDC) | payer OTHER ==
[2019-01-03 15:32] VITALS: BMI 39.0
[2019-01-09] MEDS ORDERED: LIDOCAINE 1% 20 ML VIAL (10MG/ML) FOR IV START INTRADERMA ONE (09:12)
[2019-01-09] MEDS ORDERED: LACTATED RINGERS 1,000 ML IV ONE (09:12)
[2019-01-09 09:29] VITALS: RESP 18; TEMP 98.3
[2019-01-09 09:31] LABS: Glucose,Whole Blood 189 mg/dL (75-99)
[2019-01-09] MEDS ORDERED: IV FLUID CONTINUATION 1,000 ML IV ONE (10:11)
[2019-01-09 10:28] VITALS: BP 117/81; PULSE 87
--- NOTE | 2019-01-09 10:55 | P.PCN ---
Date of Procedure: 01/09/19 Surgeon: Maximilian Darling Description of Procedure: Procedure(s) Performed: PREOPERATIVE DIAGNOSIS: Lumbar Spondylosis POSTOPERATIVE DIAGNOSIS: Same PROCEDURES: Radiofrequency ablation left with fluoroscopic guidance SURGEON: Maximilian Darling MD. ANESTHESIA: Moderate sedation with intravenous 2 mg midazolam as limb and 100 mg of fentanyl EBL: Minimal PROCEDURE INDICATION: The patient with low back pain secondary to lumbar facet arthropathy who had more than 50% relief of pain with previous diagnostic lumbar medial branch block with bupivacaine. He has had radio frequency ablation performed on the right side. He reports that his right side still hurts him. I explained him I think it is important to perform a radio frequency on the left side and then to reevaluate him after completion of both rhizotomies and given some time for them to work. PROCEDURE DESCRIPTION / TECHNIQUE: The patient was seen and identified in the preoperative area. Risks, benefits, complications, including but not limited to risk of infection ,bleeding , allergic reactions to the medications and incomplete pain relief , and alternatives were discussed with the patient, the patient agreed to proceed with the procedure and signed the consent. IV was started. The operative site was marked. Patient was taken to the OR and time out was completed. The patient was placed i n the prone position on the procedure table. The lumber area was prepped and draped in the usual sterile fashion. . Vital signs were closely monitored during the procedure .IV sedation was used during the procedure to decrease patients anxiety. Using AP and then oblique fluoroscopy, the ``eye of the Rob dog corresponding to the connection between the superior and transverse articular processes of the above-mentioned levels were identified, marked, and localized with 1% lidocaine. Subsequently, a 20 [id number] radiofrequency cannula with a 10-mm active tip was advanced guided by fluoroscopy to each of the ``eyes of the Rob dog at each site then underwent sensory testing at 50 Hz and 0 to 1 volt and motor testing at 2.5 Hz and 0 to 3 volt with local stimulation, but no radicular symptoms down the legs. Then the sites underwent radiofrequency thermocoagulation at 80 degrees celsius for 90 seconds after injecting 0.5 ml of PF lidocaine 1%. then After the thermocoagulation done , 1 ml of the block solution containing depomedrol 40 mg and 4 ml of marcaine 0.5% was injected in divided doses at each levels after negative aspiration of CSF and blood and with no paresthesias. Sterile dressings were applied. COMPLICATIONS: No acute complications. DISPOSITION / PLANS: The patient was placed in a supine position and transferred to the recovery area in a stable condition for observation and was discharged from the recovery room after meeting discharge criteria. Home discharge instructions given to the patient by the staff. The patient was reexamined prior to discharge. He will be reevaluated in the clinic in approximate 4 weeks.
--- NOTE | 2019-01-10 04:11 | FL ---
EXAMINATION TYPE: FL guided pain mgmt statistic DATE OF EXAM: 01/09/2019 FLUOROSCOPY Fluoroscopy time of 4 seconds was used during left lumbar facet radiofrequency ablation. 1 image/s d ocument/s the procedure.
== END 2019-01-09 10:53 | disposition home or self-care (01) ==
LOC: ORPAIN 08:27
PROVIDERS: ATTEND Pain Medicine Pain Medicine
DX: M47.816 Spondylosis without myelopathy or radiculopathy, lumbar region (principal); G89.29 Other chronic pain; M96.1 Postlaminectomy syndrome, not elsewhere classified; M46.1 Sacroiliitis, not elsewhere classified; G57.03 Lesion of sciatic nerve, bilateral lower limbs; E66.01 Morbid (severe) obesity due to excess calories; E11.9 Type 2 diabetes mellitus without complications; Z72.0 Tobacco use; Z68.39 Body mass index [BMI] 39.0-39.9, adult; Z88.5 Allergy status to narcotic agent; Z88.8 Allergy status to other drugs, medicaments and biological substances
CPT/HCPCS: 64635; 64636 ×2; J2250; J1030; J3010; 99152

== ENCOUNTER → 2019-01-23 | Outpatient (CLI) | payer OTHER ==
[2019-01-23 13:33] VITALS: BP 136/86; PULSE 86; RESP 16
--- NOTE | 2019-01-23 14:23 | P.PAINPG ---
Subjective Progress Note Date: 01/23/19 Principal diagnosis: Lumbar spondylosis, low back pain This a very pleasant 58-year-old gentleman with a history of low back pain. He is undergone previous radiofrequency ablation. He reports having pain lower in his back. He is interested in getting history with injection therapy. [facility] and reports some difficulty with access to our clinic. He denies any pain in his legs. He denies any weakness in his legs. He does walk with a cane. He has not been to physical therapy a long time. Objective - Vital Signs Vital signs: Vital Signs Temp Pulse 86 01/23/19 11:58 Resp 16 01/23/19 11:58 BP 136/86 01/23/19 11:58 Pulse Ox Intake & Output 01/22/19 01/23/19 01/23/19 18:59 06:59 18:59 Weight 127.006 kg - Exam General: The patient is alert and oriented. Patient is not sedated Patient answers all question appropriately. He does walk with an antalgic gait. Cardiac: Heart is regular in rate and rhythm Respiratory: Clear to auscultation. No audible wheezes. Abdomen: Soft nontender nondistended. Musculoskeletal: Strength is normal bilaterally. Sensation is normal bilaterally. Straight leg raise is negative bilaterally. He is tender to palpation over sacral iliac joints bilaterally. Facet loading maneuvers are negative bilaterally Neurological: Reflexes are preserved and symmetric bilaterally. Assessment and Plan Assessment: We will schedule the patient for bilateral sacral iliac joint injections. I'm also referring him to water therapy. I also counseled him on the role that his significant obesity placed in his back pain. (1) Lumbar spondylosis Current Visit: Yes Status: Acute Code(s): M47.816 - SPONDYLOSIS W/O MYELOPATHY OR RADICULOPATHY, LUMBAR REGION SNOMED Code(s): 221518042 (2) Bilateral sacroiliitis Current Visit: Yes Status: Acute Code(s): M46.1 - SACROILIITIS, NOT ELSEWHERE CLASSIFIED SNOMED Code(s): 79794906 PQRS Measure Charge Sheet Measure #130: Documentation of Current Meds in Medical Chart: Patient not link gible for medications to be documented Measure #226: Tobacco Use: Screen & Cessation Intervention: Pt not a tobacco user Measure #111: Pneumonia Vaccination: Pneumococcal vaccine NOT administered or previously given Measure #47: Advance Care Plan: Advance care planning discussed & documented, plan or surrogate given Measure #412: Opioid Treatment Agreement: Documented signed opioid trtmnt agreemnt min once during opioid trtmnt Measure #408: Opioid Therapy Follow-up Evaluation: Patient had NO f/u eval minimum every 3 months during opioid therapy Measure #317: Preventitive Care & Scrn High Bld Press & F/U: Pre-hypertensive or hypertensive BP documented, pt will f/u with PCP Measure #128: Body Mass Index (BMI) Screening & Follow-up: BMI documented ABOVE normal parameters - f/u documented Measure #131: Pain Assessment & Follow-up: Pain positive & plan documented Measure #431: Unhealthy Alcohol Use Preventative Care & Scrn: Patient not identified as an unhealthy alcohol user PQRS Narrative: Smoking Status Current every day smoker Do You Want the Pneumonia No Vaccine AT THIS TIME? Blood Pressure 136/86 Pain Intensity [Bilateral 8 Lower Back] Hx Alcohol Use (MH) No Home Medications: Ambulatory Orders Albuterol Inhaler [Ventolin Hfa Inhaler] 2 puff INHALATION DAILY PRN 08/14/18 Simvastatin 80 mg PO DAILY 08/14/18 metFORMIN HCL [Glucophage] 500 mg PO BID 08/14/18 Albuterol Nebulized [Ventolin Nebulized] 2.5 mg INHALATION Q4H PRN 09/05/18 Budesonide-Formot 160-4.5 Mcg [Symbicort 160-4.5 Mcg Inhaler] 2 puff INHALATION BID 09/05/18 Lisinopril-Hctz 20-25 mg [Zestoretic 20-25] 1 tab PO DAILY 09/05/18 Meloxicam [Mobic] 7.5 mg PO BID 09/05/18 Omeprazole 20 mg PO DAILY 09/05/18 tiZANidine [Zanaflex] 4 mg PO BID 09/23/18 Multivit-Min/FA/Lycopen/Lutein [Centrum Silver Men Tablet] 1 each PO DAILY 01/23/19 Controlled Substance Measures - Controlled Substance Measures Is patient prescribed a controlled substance at discharge?: No
== END ==
LOC: PNWHC3 11:31
PROVIDERS: ATTEND Pain Medicine Pain Medicine
DX: M47.816 Spondylosis without myelopathy or radiculopathy, lumbar region (principal); M46.1 Sacroiliitis, not elsewhere classified; F17.200 Nicotine dependence, unspecified, uncomplicated; Z79.899 Other long term (current) drug therapy; Z79.84 Long term (current) use of oral hypoglycemic drugs; Z79.1 Long term (current) use of non-steroidal anti-inflammatories (NSAID)
CPT/HCPCS: 99211

== ENCOUNTER 2019-02-04 09:59 | Day surgery (SDC) | payer OTHER ==
[2019-01-28 11:08] VITALS: BMI 39.7
[2019-02-04 10:14] VITALS: RESP 16; TEMP 94.3
--- NOTE | 2019-02-04 10:14 | P.PCN ---
Date of Procedure: 02/04/19 Operative Findings: Procedure: Sacroiliac joint injection bilateral Preoperative diagnosis: Sacroiliitis Postoperative diagnosis: Sacroiliitis Complication: none Anesthesia: conscious sedation and local with 1% lidocaine Description of the procedure: procedure risk and benefits discussed with the patient, including but not limited, risk of infection and bleeding, and allergic reaction to the medication and incomplete pain relief. Patient agreed and signed consent. Patient was taken to the room and placed in a prone position. Chlorhexidine was used to cleanse the skin. Under sterile conditions patient skin was anesthetized 1% lidocaine. Subcutaneous tissues were also anesthetized with a total 5 mL of 1% lidocaine. After that 22-gauge spinal needle was advanced through the anesthetized location. Needle was advanced into the inferior portion of the sacroiliac joint. IV contrast was used to confirm spread within the joint. After adequate spread was achieved, 2.5 ML's of 0.5% ropivacaine with 20 mg of triamcinolone was injected into the joint. Procedure was repeated on the other side total of 40 mg of triamcinolone was used for both sides. Patient tolerated the procedure well. Sent to the recovery room in stable condition. Patient will follow up in the clinic in 4-8 weeks' time
[2019-02-04 10:15] LABS: Glucose,Whole Blood 194 mg/dL (75-99)
[2019-02-04 10:36] VITALS: BP 140/94; PULSE 87
--- NOTE | 2019-02-04 11:53 | FL ---
Fluoroscopy HISTORY: Pain 5 seconds fluoroscopy time supplied to the referring clinician. 2 intraoperative C-arm images docume nt the procedure. See dictated report from anesthesia.
== END 2019-02-04 10:53 | disposition home or self-care (01) ==
LOC: ORPAIN 09:59
PROVIDERS: ATTEND Hospitalist
DX: M46.1 Sacroiliitis, not elsewhere classified (principal); M47.816 Spondylosis without myelopathy or radiculopathy, lumbar region; E66.9 Obesity, unspecified; Z68.39 Body mass index [BMI] 39.0-39.9, adult; F17.200 Nicotine dependence, unspecified, uncomplicated; Z79.84 Long term (current) use of oral hypoglycemic drugs; Z79.1 Long term (current) use of non-steroidal anti-inflammatories (NSAID); Z79.51 Long term (current) use of inhaled steroids; Z79.899 Other long term (current) drug therapy
CPT/HCPCS: 27096; J1030

== ENCOUNTER → 2019-03-04 | Outpatient (CLI) | payer OTHER ==
[2019-03-04 14:42] VITALS: BP 146/99; PULSE 85; RESP 18
--- NOTE | 2019-03-05 07:18 | P.PAINPG ---
Subjective Progress Note Date: 03/04/19 This is follow-up visit for this patient with a history of severe and chronic low back pain secondary to , lumbar spondylosis with lumbar facet arthropathy, and sacroilitis We have done an interventional pain procedure radiofrequency ablation of the medial branch lumbar area which helped his low back pain significantly, he continued to have severe bilateral buttock pain, which is improved with the sacroiliac joint steroid injection, the pain relief from the sacroiliac joint steroid injection was for short-term, The patient currently on Mobic 7.5 mg twice a day and Zanaflex 4 mg twice a day , and is getting prescription refills from his primary care Patient denies any side effect of the medication , patient denies any excessive drowsiness or sleepiness, patient denies any suicidal ideation, Patient reported that the current medication is helping to control the pain and improve the activity of daily livings, Patient denies any motor or sensory deficit, denies any change in the bowel movement or urination, patient denies any fever or night sweats. Objective - Vital Signs Vital signs: Vital Signs Temp Pulse 85 03/04/19 14:30 Resp 18 03/04/19 14:30 BP 146/99 03/04/19 14:30 Pulse Ox 92 L 03/04/19 14:30 Intake & Output 03/04/19 03/05/19 03/05/19 18:59 06:59 18:59 Weight 127.006 kg - Exam Physical Examinations : -Constitutiona : Cooperative , not in acute distress . -HEENT : nech ; supple , no Lymphadenopathy , normal thyroid size . eyes : no ptosis , no icterus, no photophobia . ENT : normal of hearing , normal oropharynx , no Thrush . - Respiratory : Chest clear to auscultations Bilaterally , no wheezing , no Rhonchi . - Cardiovascula : regular rate and rhythem , S1 , S2 , no S3 , no S4. - Gastrointestina : abdomen soft no tenderness , bowel sounds , no organomegally . - Genitourinary : Defferred . - neurologic : Cranial nerve II to XII intact , no focal neurological deffecit . -psychatric : alert , oriented X 3 , appropriate affect , intact judgment and insight . -Lymphatic : no Lymphadenopathy . - musculoskeltal : Lumber spine moter stegnth lower extremities ,thigh and legs 5/5 Right side , 5/5 Left side deep tendon reflexes : normal Knee Jerk , normal ankle Jerk lumber facet Loading Test negative bilaterally Range of motion of the lumbar spine Flexion 60 degrees, extension 30 degrees strait leg raising test , positive at degree Fabere test negative bilaterally Sever tenderness over the Sacroiliac joint on the R and L sides Gaenslen test positive bilaterally. Seated flexion test positive bilaterally. Assessment and Plan Plan: Assessment and plan= bilateral sacroiliitis. Lumbar spondylosis with lumbar facet arthropathy without myelopathy. Patient could benefit from repeat bilateral sacroiliac joint steroid injection under fluoroscopy guidance, Patient should continue to use his current medications Zanaflex and Mobic Time with Patient: Less than 30 PQRS Measure Charge Sheet Measure #130: Documentation of Current Meds in Medical Chart: Patient's medications documented in chart Measure #226: Tobacco Use: Screen & Cessation Intervention: Pt screened for tob acco use AND intervention given Measure #111: Pneumonia Vaccination: Pneumococcal vaccine NOT administered or previously given Measure #47: Advance Care Plan: Advance care planning discussed & documented, pt chose/unable to give Measure #412: Opioid Treatment Agreement: No documentation of signed opioid treatment agreement Measure #408: Opioid Therapy Follow-up Evaluation: Patient had NO f/u eval minimum every 3 months during opioid therapy Measure #317: Preventitive Care & Scrn High Bld Press & F/U: Pre-hypertensive or hypertensive BP documented, pt will f/u with PCP Measure #128: Body Mass Index (BMI) Screening & Follow-up: BMI documented ABOVE normal parameters - f/u documented Measure #131: Pain Assessment & Follow-up: Pain positive & plan documented, Follow-up scheduled Measure #431: Unhealthy Alcohol Use Preventative Care & Scrn: Patient not identified as an unhealthy alcohol user PQRS Narrative: Smoking Status Current every day smoker Do You Want the Pneumonia No Vaccine AT THIS TIME? Blood Pressure 146/99 Pain Intensity [Lower Back] 8 Scale Used Numeric (1 - 10) Hx Alcohol Use (MH) No Home Medications: Ambulatory Orders Albuterol Inhaler [Ventolin Hfa Inhaler] 2 puff INHALATION DAILY PRN 08/14/18 Simvastatin 80 mg PO DAILY 08/14/18 metFORMIN HCL [Glucophage] 500 mg PO BID 08/14/18 Albuterol Nebulized [Ventolin Nebulized] 2.5 mg INHALATION Q4H PRN 09/05/18 Budesonide-Formot 160-4.5 Mcg [Symbicort 160-4.5 Mcg Inhaler] 2 puff INHALATION BID 09/05/18 Lisinopril-Hctz 20-25 mg [Zestoretic 20-25] 1 tab PO DAILY 09/05/18 Meloxicam [Mobic] 7.5 mg PO BID 09/05/18 Omeprazole 20 mg PO DAILY 09/05/18 tiZANidine [Zanaflex] 4 mg PO BID 09/23/18 Multivit-Min/FA/Lycopen/Lutein [Centrum Silver Men Tablet] 1 each PO DAILY 01/23/19 Controlled Substance Measures - Controlled Substance Measures Is patient prescribed a controlled substance at discharge?: No
== END ==
LOC: PNWHC3 13:37
PROVIDERS: ATTEND Specialist
DX: M47.816 Spondylosis without myelopathy or radiculopathy, lumbar region (principal); M46.96 Unspecified inflammatory spondylopathy, lumbar region; M46.1 Sacroiliitis, not elsewhere classified; F17.200 Nicotine dependence, unspecified, uncomplicated; Z79.899 Other long term (current) drug therapy; Z79.84 Long term (current) use of oral hypoglycemic drugs; Z79.1 Long term (current) use of non-steroidal anti-inflammatories (NSAID)
CPT/HCPCS: 99211

== ENCOUNTER 2019-03-18 08:55 | Day surgery (SDC) | payer OTHER ==
[2019-03-14 10:33] VITALS: BMI 38.0
[~2019-03-18 08:55] MED LIST changes: +LACTATED RINGERS 1,000 ML IV SCH; -SODIUM CHLORIDE 0.9% 500 ML 500 ML IV SCH
[2019-03-18 09:12] VITALS: TEMP 98.1
[2019-03-18 09:15] LABS: Glucose,Whole Blood 209 mg/dL (75-99)
--- NOTE | 2019-03-18 09:31 | P.PCN ---
Date of Procedure: 03/18/19 Procedure(s) Performed: Procedure= bilateral sacral iliac joints steroid injection under fluoroscopy g uidance Preoperative diagnosis= 1-sacroiliitis 2-lumbar spondylosis with facet arthropathy Postoperative diagnosis=1-sacroiliitis 2-lumbar spondylosis with facet arthropathy Complication = none Condition= stable Anesthesia= local infiltration with lidocaine 1% 5 mL only ( no IV sedation ) Indication for the procedure= patient complaining of low back pain , examination was positive for severe tenderness over the sacroiliac joints bilaterally and patient diagnosed with sacroiliitis, for this reason he/ she was good candidate for sacroiliac joint steroid injection. Description of the procedure= procedure risk and benefits discussed with the patient, including but not limited, risk of infection and bleeding, and ALLERGIC reaction to the medication and not complete pain relief and patient agreed with the preceding patient taken to the operating room, placed in prone position or standard monitors applied to the patient then after induction of anesthesia back prepped with chlorhexidine 3 times , Then under strict sterile technique, first I did the right sacroiliac joint the which was identified under fluoroscopy guidance been local infiltration of the skin and subcu interstitial with lidocaine 1% then 25-gauge Quincke Needle advanced slowly under fluoroscopy and placed in the right sacroiliac joint needle placement confirmed with AP and oblique and lateral view and after appropriate needle placement confirmed and after negative aspiration, or heme , then Ropivacaine 0.5% 3 mL, and 20 mg of Depo-Medrol mixed together and injected in the right sacroiliac joint after negative aspiration patient tolerated the procedure well without any complication. Then the left sacroiliac joint steroid injection done under strict sterile technique local infiltration of the skin and subcu interstitial at the location of the left sacroiliac joint then a 22-gauge Quincke Needle advanced slowly under fluoroscopy time placed in the left sacroiliac joint, needle placement c onfirmed with AP and oblique and lateral view then after appropriate needle placement confirmed and after negative aspiration 0.5% Marcaine 3 mL and 20 mg of Depo-Medrol injected in the left sacroiliac joint after negative aspiration patient tolerated the procedure well that any complications and he will follow up in clinic 3 weeks
[2019-03-18 09:38] VITALS: BP 129/82; PULSE 90; RESP 16
--- NOTE | 2019-03-18 10:53 | FL ---
EXAMINATION TYPE: FL guided pain mgmt statistic DATE OF EXAM: 03/18/2019 CLINICAL HISTORY: Sacroiliac joint pain. TECHNIQUE: Fluoroscopy. COMPARISON: None. FINDINGS: Fluoroscopic guidance was provided during pain relief procedure performed by Dr. Warren . A total of 13 seconds of fluoroscopic time was utilized during the procedure and two spot images a re acquired. Images acquired shows needle localization of the sacroiliac joints. IMPRESSION: As Above.
== END 2019-03-18 09:54 | disposition home or self-care (01) ==
LOC: ORPAIN 08:55
PROVIDERS: ATTEND Specialist
DX: M46.1 Sacroiliitis, not elsewhere classified (principal); M47.816 Spondylosis without myelopathy or radiculopathy, lumbar region; J45.909 Unspecified asthma, uncomplicated
CPT/HCPCS: 27096; J1030

== ENCOUNTER 2019-03-26 18:44 | Emergency (ER) | payer OTHER ==
[2019-03-26 18:59] VITALS: RESP 16; TEMP 98.4
[2019-03-26] MEDS ORDERED: HYDROmorphone 1 MG/ML 1 ML SYRINGE IM STA (20:06)
--- NOTE | 2019-03-26 20:23 | ED ---
Lower Extremity Injury HPI - General Chief Complaint: Extremity Injury, Lower Stated Complaint: Knee injury Time Seen by Provider: 03/26/19 20:00 Source: patient, old records reviewed Mode of arrival: ambulatory Limitations: no limitations - History of Present Illness Initial Comments: This is a 50-year-old male the ER for evaluation. They presents for evaluation of left knee pain. Pain for about a week now, patient twisting injury, feels like that knee might of been dislocated at some point. He feels like it occasional times it does give out on himself. Patient denies specific trauma that knee as far as a fall or other injury. Patient is ambulatory on that knee currently with severe pain. No pain in the leg or calf. MD Complaint: knee injury -: week(s) Injury: Knee: Left Type of Injury: hyperextension, unknown Place: home Severity: moderate Severity scale (1-10): 6 Improves With: nothing Worsens With: movement Context: walking Associated Symptoms: able to partially bear weight - Related Data Home Medications Medication Instructions Recorded Confirmed Albuterol Inhaler [Ventolin Hfa 2 puff INHALATION RT-QID PRN 08/14/18 03/26/19 Inhaler] Simvastatin 80 mg PO DAILY 08/14/18 03/26/19 Albuterol Nebulized [Ventolin 2.5 mg INHALATION RT-Q4H PRN 09/05/18 03/26/19 Nebulized] Budesonide-Formot 160-4.5 Mcg 2 puff INHALATION RT-BID 09/05/18 03/26/19 [Symbicort 160-4.5 Mcg Inhaler] Lisinopril-Hctz 20-25 mg 1 tab PO DAILY 09/05/18 03/26/19 [Zestoretic 20-25] Meloxicam [Mobic] 7.5 mg PO BID 09/05/18 03/26/19 tiZANidine [Zanaflex] 4 mg PO BID 09/23/18 03/26/19 Multivit-Min/FA/Lycopen/Lutein 1 tab PO DAILY 01/23/19 03/26/19 [Centrum Silver Men Tablet] Omeprazole 40 mg PO DAILY 03/14/19 03/26/19 metFORMIN HCL 1,000 mg PO BID 03/14/19 03/26/19 Allergies Allergy/AdvReac Type Severity Reaction Status Date / Time codeine Allergy Unknown Verified 03/26/19 20:03 Childhood bupropion [From Wellbutrin] AdvReac Nausea & Verified 03/26/19 20:03 Vomiting gabapentin AdvReac Nausea & Verified 03/26/19 20:03 Vomiting/dizzyness pregabalin AdvReac Nausea & Verified 03/26/19 20:03 Vomiting tramadol AdvReac Nausea & Verified 03/26/19 20:03 Vomiting Review of Systems ROS Statement: Those systems with pertinent positive or pertinent negative responses have been documented in the HPI. ROS Other: All systems not noted in ROS Statement are negative. Past Medical History Past Medical History: COPD, Diabetes Mellitus, GERD/Reflux, Hyperlipidemia, Hypertension, Sleep Apnea/CPAP/BIPAP Additional Past Medical History / Comment(s): cpap with O2 , Chronic back pain, hx of jaw fx 1979 History of Any Multi-Drug Resistant Organisms: None Reported Past Surgical History: Back Surgery Additional Past Surgical History / Comment(s): lumbar surgery ; pain procedures Past Anesthesia/Blood Transfusion Reactions: No Reported Reaction Past Psychological History: No Psychological Hx Reported Smoking Status: Current every day smoker Past Alcohol Use History: None Reported Past Drug Use History: None Reported - Past Family History Mother Family Medical History: No Reported History General Exam - General Exam Comments Initial Comments: No significant tenderness to left knee or swelling Limitations: no limitations General appearance: alert, in no apparent distress Head exam: Present: atraumatic, normocephalic, normal inspection Eye exam: Present: normal appearance, PERRL, EOMI. Absent: scleral icterus, conjunctival injection, periorbital swelling ENT exam: Present: normal exam, mucous membranes moist Neck exam: Present: normal inspection. Absent: tenderness, meningismus, lymphadenopathy Respiratory exam: Present: normal lung sounds bilaterally. Absent: respiratory distress, wheezes, rales, rhonchi, stridor Cardiovascular Exam: Present: regular rate, normal rhythm, normal heart sounds. Absent: systolic murmur, diastolic murmur, rubs, gallop, clicks GI/Abdominal exam: Present: soft, normal bowel sounds. Absent: distended, tenderness, guarding, rebound, rigid Extremities exam: Present: normal inspection, full ROM, normal capillary refill. Absent: tenderness, pedal edema, joint swelling, calf tenderness Back exam: Present: normal inspection Neurological exam: Present: alert, oriented X3, CN II-XII intact Psychiatric exam: Present: normal affect, normal mood Skin exam: Present: warm, dry, intact, normal color. Absent: rash Course Vital Signs 03/26/19 03/26/19 18:56 21:07 Temperature 98.4 F 98.4 F Pulse Rate 82 79 Respiratory 16 16 Rate Blood Pressure 126/80 120/72 O2 Sat by Pulse 96 96 Oximetry Medical Decision Making - Medical Decision Making 15 male the ER for evaluation of left knee pain severe. Patient placed in left knee immobilizer, injury was obtained with a twisting injury. Likely underlying ligament damage. No other traumatic injury noted. Patient has x-ray of left knee which is negative for injury here and can ambulate with assistance, can crutches - Radiology Data Radiology results: report reviewed (X-ray left is negative for traumatic injury), image reviewed Disposition Clinical Impression: Left knee sprain Disposition: HOME SELF-CARE Condition: Good Instructions (If sedation given, give patient instructions): Knee Sprain (ED) Is patient prescribed a controlled substance at d/c from ED?: No Referrals: Arnel Mantilla DO [Medical Doctor] - 1-2 days
--- NOTE | 2019-03-26 20:32 | XR ---
EXAMINATION TYPE: XR knee complete LT DATE OF EXAM: 03/26/2019 COMPARISON: NONE HISTORY: Knee pain for one week TECHNIQUE: 3 views FINDINGS: I see no fracture nor dislocation. There is probably small knee joint effusion. Joint space s are normal. IMPRESSION: Small joint effusion. No fracture.
[2019-03-26] MEDS ORDERED: ACET/COD 300 MG/30 MG STARTER PACK 6 TAB BTL PO STA (20:40)
[2019-03-26 21:08] VITALS: BP 120/72; PULSE 79
== END 2019-03-26 21:07 | disposition home or self-care (01) ==
LOC: EC 18:44
DX: S83.92XA Sprain of unspecified site of left knee, initial encounter (principal); J44.9 Chronic obstructive pulmonary disease, unspecified; E11.9 Type 2 diabetes mellitus without complications; K21.9 Gastro-esophageal reflux disease without esophagitis; E78.5 Hyperlipidemia, unspecified; I10 Essential (primary) hypertension; G47.30 Sleep apnea, unspecified; M54.9 Dorsalgia, unspecified; G89.29 Other chronic pain; F17.200 Nicotine dependence, unspecified, uncomplicated; Z87.81 Personal history of (healed) traumatic fracture; Z99.89 Dependence on other enabling machines and devices; Z98.890 Other specified postprocedural states; Z79.1 Long term (current) use of non-steroidal anti-inflammatories (NSAID); Z79.51 Long term (current) use of inhaled steroids; Z79.84 Long term (current) use of oral hypoglycemic drugs; Z79.899 Other long term (current) drug therapy; Z88.5 Allergy status to narcotic agent; Z88.8 Allergy status to other drugs, medicaments and biological substances; X50.1XXA Overexertion from prolonged static or awkward postures, initial encounter; Y92.009 Unspecified place in unspecified non-institutional (private) residence as the place of occurrence of the external cause
CPT/HCPCS: 73562; 99283; 96372; J1170

== ENCOUNTER → 2019-04-02 | Outpatient (CLI) | payer OTHER ==
[2019-04-02 13:21] VITALS: BP 126/79; PULSE 93; RESP 20
--- NOTE | 2019-04-02 13:42 | P.PN ---
Subjective Progress Note Date: 04/02/19 This is follow-up visit for this patient with a history of severe and chronic low back pain secondary to , lumbar spondylosis with lumbar facet arthropathy, and sacroilitis We have done an interventional pain procedure radiofrequency ablation of the medial branch lumbar area which helped his low back pain significantly, he continued to have severe bilateral buttock pain, and recently we have done bilateral sacroiliac joint steroid injection, and he reported that his pain level was 8/10 before the injection, dropped to see over 10 after the injection ,The patient currently on Mobic 7.5 mg twice a day and Zanaflex 4 mg twice a day , and is getting prescription refills from his primary care Patient denies any side effect of the medication , patient denies any excessive drowsiness or sleepiness, patient denies any suicidal ideation, Patient reported that the current medication is helping to control the pain and improve the activity of daily livings, Patient denies any motor or sensory deficit, denies any change in the bowel movement or urination, patient denies any fever or night sweats. Physical Examinations : -Constitutiona : Cooperative , not in acute distress . -HEENT : nech ; supple , no Lymphadenopathy , normal thyroid size . eyes : no ptosis , no icterus, no photophobia . ENT : normal of hearing , normal oropharynx , no Thrush . - Respiratory : Chest clear to auscultations Bilaterally , no wheezing , no Rhonchi . - Cardiovascula : regular rate and rhythem , S1 , S2 , no S3 , no S4. - Gastrointestina : abdomen soft no tenderness , bowel sounds , no organomegally . - Genitourinary : Defferred . - neurologic : Cranial nerve II to XII intact , no focal neurological deffecit . -psychatric : alert , oriented X 3 , appropriate affect , intact judgment and insight . -Lymphatic : no Lymphadenopathy . - musculoskeltal : Lumber spine moter stegnth lower extremities ,thigh and legs 5/5 Right side , 5/5 Left side deep tendon reflexes : normal Knee Jerk , normal ankle Jerk lumber facet Loading Test negative bilaterally Range of motion of the lumbar spine Flexion 60 degrees, extension 30 degrees strait leg raising test , positive at degree Fabere test negative bilaterally Sever tenderness over the Sacroiliac joint on the R and L sides Gaenslen test positive bilaterally. Seated flexion test positive bilaterally. Assessment and Plan Plan: Assessment and plan= bilateral sacroiliitis. Patient had more than 50% improvem ent of his low back pain after bilateral sacroiliac joint steroid injections 2 Lumbar spondylosis with lumbar facet arthropathy without myelopathy. Patient could benefit from radiofrequency ablation of the sacroiliac joint ( RFA of L5-S1 dorsal ramus, and RFA of the lateral branchesS1,S2 ,S3 Patient should continue to use his current medications Zanaflex and Mobic Time with Patient: Less than 30 PQRS Measure Charge Sheet Measure #130: Documentation of Current Meds in Medical Chart: Patient's medications documented in chart Measure #226: Tobacco Use: Screen & Cessation Intervention: Pt screened for tobacco use AND intervention given Measure #111: Pneumonia Vaccination: Pneumococcal vaccine NOT administered or previously given Measure #47: Advance Care Plan: Advance care planning discussed & documented, pt chose/unable to give Measure #412: Opioid Treatment Agreement: No documentation of signed opioid treatment agreement Measure #408: Opioid Therapy Follow-up Evaluation: Patient had NO f/u eval minimum every 3 months during opioid therapy Measure #317: Preventitive Care & Scrn High Bld Press & F/U: Pre-hypertensive or hypertensive BP documented, pt will f/u with PCP Measure #128: Body Mass Index (BMI) Screening & Follow-up: BMI documented ABOVE normal parameters - f/u documented Measure #131: Pain Assessment & Follow-up: Pain positive & plan documented, Follow-up scheduled Measure #431: Unhealthy Alcohol Use Preventative Care & Scrn: Patient not identified as an unhealthy alcohol user PQRS Narrative: Objective - Vital Signs Vital signs: Vital Signs Temp Pulse 93 04/02/19 13:09 Resp 20 04/02/19 13:09 BP 126/79 04/02/19 13:09 Pulse Ox 93 L 04/02/19 13:09 Intake & Output 04/01/19 04/02/19 04/02/19 18:59 06:59 18:59 Weight 127.006 kg
== END | disposition home or self-care (01) ==
LOC: PNWHC3 12:41
PROVIDERS: ATTEND Specialist
DX: G89.29 Other chronic pain (principal); M46.1 Sacroiliitis, not elsewhere classified; M47.816 Spondylosis without myelopathy or radiculopathy, lumbar region; M46.96 Unspecified inflammatory spondylopathy, lumbar region; Z98.890 Other specified postprocedural states
CPT/HCPCS: 99211

== ENCOUNTER 2019-04-15 06:25 | Day surgery (SDC) | payer OTHER ==
[2019-04-10 11:39] VITALS: BMI 38.0
[2019-04-15 06:46] VITALS: TEMP 97.9
[2019-04-15 06:54] LABS: Glucose,Whole Blood 176 mg/dL (75-99)
[2019-04-15 07:27] VITALS: RESP 16
[2019-04-15 07:41] VITALS: BP 149/86; PULSE 100
--- NOTE | 2019-04-15 07:47 | FL ---
EXAMINATION TYPE: FL guided pain mgmt statistic DATE OF EXAM: 04/15/2019 CLINICAL HISTORY: Low back and sacroiliac joint pain. TECHNIQUE: Fluoroscopy. COMPARISON: None. FINDINGS: Fluoroscopic guidance was provided during pain relief procedure performed by Dr. Darling . A total of 2 seconds of fluoroscopic time was utilized during the procedure and single spot fluorosc opic image is acquired. Single image acquired shows needle localization at level of sacroiliac joint . IMPRESSION: As Above.
--- NOTE | 2019-04-15 15:01 | P.PCN ---
Date of Procedure: 04/15/19 Surgeon: Maximilian Darling Description of Procedure: Procedure(s) Performed: PREOPERATIVE DIAGNOSIS: Lumbar Spondylosis POSTOPERATIVE DIAGNOSIS: Same PROCEDURES: Radiofrequency ablation right L3-4, L4-5, L5-S1 with fluoroscopic guidance SURGEON: Maximilian Darling MD. ANESTHESIA: Local only EBL: Minimal PROCEDURE INDICATION: The patient with low back pain secondary to lumbar facet arthropathy who had more than 50% relief of pain with previous diagnostic lumbar medial branch block with bupivacaine. PROCEDURE DESCRIPTION / TECHNIQUE: The patient was seen and identified in the preoperative area. Risks, benefits, complications, including but not limited to risk of infection ,bleeding , allergic reactions to the medications and incomplete pain relief , and alternatives were discussed with the patient, the patient agreed to proceed with the procedure and signed the consent. IV was started. The operative site was marked. Patient was taken to the OR and time out was completed. The patient was placed in the prone position on the procedure table. The lumber area was prepped and draped in the usual sterile fashion. . Vital signs were closely monitored during the procedure .IV sedation was used during the procedure to decrease patients anxiety. Using AP and then oblique fluoroscopy, the ``eye of the Rob dog corresponding to the connection between the superior and transverse articular processes of the above-mentioned levels were identified, marked, and localized with 1% lidocaine. Subsequently, a 20 [id number] radiofrequency cannula with a 10-mm active tip was advanced guided by fluoroscopy to each of the ``eyes of the Rob dog at each site then underwent sensory testing at 50 Hz and 0 to 1 volt and motor testing at 2.5 Hz and 0 to 3 volt with local stimulation, but no radicular symptoms down the legs. Then the sites underwent radiofrequency thermocoagulation at 80 degrees celsius for 90 seconds after injecting 0.5 ml of PF lidocaine 1%. then After the thermocoagulation done , 1 ml of the block solution containing depomedrol 40 mg and 4 ml of marcaine 0.5% was injected in divided doses at each levels after negative aspiration of CSF and blood and with no paresthesias. Sterile dressings were applied. COMPLICATIONS: No acute complications. DISPOSITION / PLANS: The patient was placed in a supine position and transferred to the recovery area in a stable condition for observation and was discharged from the recovery room after meeting discharge criteria. Home discharge instructions given to the patient by the staff. The patient was reexamined prior to discharge.
== END 2019-04-15 07:50 | disposition home or self-care (01) ==
LOC: ORPAIN 06:25
PROVIDERS: ATTEND Pain Medicine Pain Medicine
DX: M47.816 Spondylosis without myelopathy or radiculopathy, lumbar region (principal); Z79.1 Long term (current) use of non-steroidal anti-inflammatories (NSAID); Z79.899 Other long term (current) drug therapy
CPT/HCPCS: 64640; 64635; J1030; J2001

== ENCOUNTER → 2019-04-29 | Day surgery (SDC) | payer OTHER ==
[2019-04-24 10:02] VITALS: BMI 38.0
[2019-04-29 09:45] VITALS: RESP 18; TEMP 96.2
[2019-04-29 09:52] LABS: Glucose,Whole Blood 155 mg/dL (75-99)
--- NOTE | 2019-04-29 10:49 | P.PCN ---
Date of Procedure: 04/29/19 Procedure(s) Performed: PREOPERATIVE DIAGNOSIS: 1-Lumbosacral spondylosis with facet arthropathy without myelopathy. 2- sacroiliit. 3-myofascial pain syndrome lumbar area post operative Diagnosis: . 1-Lumbosacral spondylosis with facet arthropathy without myelopathy. 2- sacroiliit. 3-myofascial pain syndrome lumbar area PROCEDURES: 1- Left radiofrequency thermocoagulation/ablation of the L5 dorsal ramus. 2- Left multi-site radiofrequency thermocoagulation/ablation of the S1, S2,lateral branchs. 3-trigger point injection right side lumbar area(1 trigger point injected on the right side lumbar paravertebral muscle ) The procedure was performed using fluoroscopic guidance during needle placement to assure proper position and maximize safety ANESTHESIA: LOCAL ANESTHESIA =only local infiltration from the skin and subcutaneous tissue with bupivacaine 0.5% EBL: NONE INDICATION/MEDICAL NECESSITY: History of low back pain secondary to left sacroiliitis and lumbosacral arthropathy unresponsive to more conservative treatments. The patient reported more than 50% relief of pain symptoms following 2 previous diagnostic blocks with Bupivacaine. PROCEDURE DESCRIPTION: The patient was seen and identified in the preoperative area. Risks, benefits, complications, and alternatives were discussed with the patient. The patient agreed to proceed with the procedure and signed the consent. Vital signs were checked before and after the procedure and they remained stable. Patient ambulated to the procedure room and time out was completed. The patient was placed in the prone position on the procedure table and a pillow was placed under the abdomen to reduce lumbar lordosis. The lumbosacral area was prepped and draped in the usual sterile fashion. Critical pause was taken. L5 Dorsal Ramus RF: Using Left oblique fluoroscopy, the junction of the transverse process and the superior articular process of the Left S1 vertebra, which correspond to the fluoroscopic image of the "eye of the Rob dog" was identified. Subsequently, a 10-cm 20 -gauge radiofrequency cannula with a 10-mm active tip was advanced under fluoroscopic guidance until contact was made with periosteum. At this level, the Sensory testing of the L5 dorsal ramus was performed at 50 Hz and 0 to 1 volt with production of concordant pain starting at 0.5 volt. Motor stimulation was done at 2.5 Hz with stimulation of mulitifidus muscle contration . No radicular symptoms or paresthesias were produced during the testing. Subsequently, the L5 dorsal ramus was subjected to a radiofrequency ablation at 80 degree celsius for 90 seconds . after 0.5% Bupivacaine 1 ml injected at each level after negative aspirations . The needle was withdrawn intact . S1, and S2, Lateral Branch RF: The lateral margins of the Right S1, S2, foramina were identified using AP fluo roscopy( S3 foramina was not visualized for this reason ,I did not do with RFA of the lateral branches of S3 ). Under fluoroscopic guidance, three 10-cm 20 - gauge radiofrequency cannula with a 10-mm active tip were inserted at 8-10 mm peripheral to the posterior S1 foramen, at various locations using clock-face coordinates. The center of the clock was registered at the lateral margin of the foramen. The 6:30, 8:00, and 9:30 oclock positions were used. At this level, the sensory testing of the S1 lateral branch was performed at 50 Hz and 0 to 1 volt at the three levels with production of concordant pain starting at 0.5 volt. Motor stimulation was done at 2.5 Hz. No radicular symptoms or paresthesias were produced during the testing. Subsequently, the S1 lateral branch was subjected to a radiofrequency ablation at a mode of 90 seconds at 80 degrees Celsius at the 3 levels after negative motor and sensory testing and after injecting 0.5 ml of preservative free Bupivacaine 0.5 %. The same procedure was performed at the level of the S2 foramen. . The needle was withdrawn intact after each injection. Then after that the trigger point injection done on the right side lumbar paravertebral muscle, 1 trigger point injected using 25-gauge needle injection done under sterile technique, ropivacaine 0.5% 2 mL injected on the right side lumbar paravertebral muscles after negative aspiration patient tolerated the procedure well without any complications COMPLICATIONS: The patient tolerated the procedure well without any acute complications. DISPOSTION/PLAN: The patient ambulated to the recovery area after the procedure in a stable condition for observation. Patient was reexamined prior to discharge. Patient was observed for 30 minutes in the recovery area and was discharged home, accompanied by an adult, after meeting discharged criteria. Discharge instructions were give to the patient by the staff. Patient was specifically instructed not to drive today and to rest for the rest of the day. The patient will schedule a follow up visit in the clinic in weeks or earlier if needed.
[2019-04-29 11:08] VITALS: BP 134/86; PULSE 83
--- NOTE | 2019-04-29 11:50 | FL ---
EXAMINATION TYPE: FL guided pain mgmt statistic DATE OF EXAM: 04/29/2019 HISTORY: left SI joint RF left SI joint RF. 44 sec fl time
== END ==
LOC: ORPAIN 09:33
PROVIDERS: ATTEND Specialist
DX: M47.817 Spondylosis without myelopathy or radiculopathy, lumbosacral region (principal); M46.1 Sacroiliitis, not elsewhere classified; M79.18 Myalgia, other site; I10 Essential (primary) hypertension; J44.9 Chronic obstructive pulmonary disease, unspecified; G47.33 Obstructive sleep apnea (adult) (pediatric); E11.9 Type 2 diabetes mellitus without complications; Z88.5 Allergy status to narcotic agent; Z88.8 Allergy status to other drugs, medicaments and biological substances
CPT/HCPCS: 20552; 64640; 64635; J1030; 99152; 99153

== ENCOUNTER → 2019-05-15 | Outpatient (CLI) | payer OTHER ==
[2019-05-15 15:19] VITALS: BP 107/74; PULSE 66; RESP 16; TEMP 98.7
--- NOTE | 2019-05-15 16:14 | P.PAINPG ---
Subjective Progress Note Date: 05/15/19 This is follow-up visit for this patient with a history of severe and chronic low back pain secondary to , lumbar spondylosis with lumbar facet arthropathy, and sacroilitis He returns today for procedure follow-up. We have performed a left-sided sacroiliac joint RFA on 04/29/2019. He reports that his left-sided pain is almost negligent. He does have one area of pain in his right buttock, and points to his ischial tuberosity. pain does not radiate to lower extremity and is localized to his right buttock.,The patient currently on Mobic 7.5 mg twice a day and Zanaflex 4 mg twice a day , and is getting prescription refills from his primary care Patient denies any motor or sensory deficit, denies any change in the bowel movement or urination, patient denies any fever or night sweats. U of systems: 4 point review of systems was negative Physical Examinations : Vitals: Reviewed in EMR GENERAL: Well appearing, in no acute distress PSYCH: Mood and affect is appropriate. Awake, alert, and oriented SKIN: Skin color, texture, turgor normal, no rashes or lesions HEENT: Normocephalic, atraumatic. EOM intact CV: No pedal edema RESP: Respirations are unlabored, no audible wheezing GI: Abdomen non-distended MUSCULOSKELETAL: Bilateral lower extremity strength is normal and symmetric. No atrophy or tone abnormalities are noted. Lumbar spine: Straight leg raising in the sitting position is negative for radicular pain. No pain to palpation over the lumbar spine and paraspinous muscles. Normal range of motion without pain reproduction Buttocks: No pain to palpation over the PSIS, right Monica test is mildly positive. Tenderness noted over region of ischial tuberosity. Extremities: Peripheral joint ROM is full and pain free without obvious instability or laxity in all four extremities. No edema or skin discolorations noted. Gait: Gait is normal NEUR: Bilateral lower extremity coordination and muscle stretch reflexes are physiologic and symmetric. Negative ankle clonus. No loss of sensation is noted. Assessment and Plan Plan: Assessment and plan= bilateral sacroiliitis status post left SI RFA with good benefit. Right ischial bursitis Lumbar spondylosis with lumbar facet arthropathy without myelopathy. Patient could benefit from right ischial bursa injection with steroid under fluoroscopy. We will schedule this today. We did discuss with the patient that there are unlikely to be any further interventions that would offer him benefit. Extensive counseling was done on smoking cessation, weight loss, exercise. Patient should continue to use his current medications Zanaflex and Mobic Objective - Vital Signs Vital signs: Vital Signs Temp 98.7 F 05/15/19 14:58 Pulse 66 05/15/19 14:58 Resp 16 05/15/19 14:58 BP 107/74 05/15/19 14:58 Pulse Ox 98 05/15/19 14:58 PQRS Measure Charge Sheet Measure #130: Documentation of Current Meds in Medical Chart: Patient's medications documented in chart Measure #226: Tobacco Use: Screen & Cessation Intervention: Pt screened for tobacco use AND intervention given Measure #111: Pneumonia Vaccination: Pneumococcal vaccine NOT administered or previously given Measure #47: Advance Care Plan: Advance care planning discussed & documented, pt chose/unable to give Measure #412: Opioid Treatment Agreement: No documentation of signed opioid treatment agreement Measure #317: Preventitive Care & Scrn High Bld Press & F/U: Normal blood pressure, f/u not required Measure #128: Body Mass Index (BMI) Screening & Follow-up: BMI documented ABOVE normal parameters - f/u documented Measure #131: Pain Assessment & Follow-up: Pain positive & plan documented, Follow-up scheduled Measure #431: Unhealthy Alcohol Use Preventative Care & Scrn: Patient not identified as an unhealthy alcohol user PQRS Narrative: Smoking Status Current every day smoker Blood Pressure 107/74 Pain Intensity [Right Buttock] 8 Scale Used Numeric (1 - 10) Hx Alcohol Use (MH) No Home Medications: Ambulatory Orders Albuterol Inhaler [Ventolin Hfa Inhaler] 2 puff INHALATION RT-QID PRN 08/14/18 Simvastatin 80 mg PO DAILY 08/14/18 Albuterol Nebulized [Ventolin Nebulized] 2.5 mg INHALATION RT-Q4H PRN 09/05/18 Budesonide-Formot 160-4.5 Mcg [Symbicort 160-4.5 Mcg Inhaler] 2 puff INHALATION RT-BID 09/05/18 Lisinopril-Hctz 20-25 mg [Zestoretic 20-25] 1 tab PO DAILY 09/05/18 Meloxicam [Mobic] 7.5 mg PO BID 09/05/18 tiZANidine [Zanaflex] 4 mg PO BID 09/23/18 Multivit-Min/FA/Lycopen/Lutein [Centrum Silver Men Tablet] 1 tab PO DAILY 01/23/19 Omeprazole 40 mg PO DAILY 03/14/19 metFORMIN HCL 1,000 mg PO BID 03/14/19 Loratadine [Claritin] 10 mg PO DAILY 05/15/19 Controlled Substance Measures - Controlled Substance Measures Is patient prescribed a controlled substance at discharge?: No
== END | disposition home or self-care (01) ==
LOC: PNWHC3 13:40
PROVIDERS: ATTEND Anesthesiology
DX: G89.29 Other chronic pain (principal); M47.816 Spondylosis without myelopathy or radiculopathy, lumbar region; M46.1 Sacroiliitis, not elsewhere classified; M70.71 Other bursitis of hip, right hip; M46.96 Unspecified inflammatory spondylopathy, lumbar region; F17.200 Nicotine dependence, unspecified, uncomplicated; Z98.890 Other specified postprocedural states
CPT/HCPCS: 99211

== ENCOUNTER 2019-05-27 06:24 | Day surgery (SDC) | payer OTHER ==
[2019-05-23 10:04] VITALS: BMI 38.0
[2019-05-27 07:01] VITALS: TEMP 97.6
[2019-05-27 07:13] LABS: Glucose,Whole Blood 156 mg/dL (75-99)
[2019-05-27] MEDS ORDERED: IV FLUID CONTINUATION 1,000 ML IV ONE (08:35)
--- NOTE | 2019-05-27 08:38 | P.PCN ---
Date of Procedure: 05/27/19 Procedure(s) Performed: Pre OP diagnoses= right ischial bursitis . Postoperative diagnosis= right ischial bursitis. Operation= right ischial bursa steroid injection under fluoroscopy guidance. Anesthesia= lidocaine 1% 5 mL . Complications= none . Description of the procedure= patient had history of right buttock pain secondary to ischial bursitis for this reason patient was a good candidate to have right ischial bursa steroid injection. Risks and benefits of the procedure including but not limited to risk of infection and bleeding and incomplete pain relief and ALLERGIC reaction to medication discussed with the patient and the alternative also discussed with the patient and he agreed with the preceding. Patient was taken to the operating room placed in prone position or standard monitors applied patient. the right buttock area was prepped with chlorhexidine 2 times, and under sterile technique using 25-gauge needle for skin and subcutaneous tissue infiltration was first administered. Then, a 22-gauge 5 inch Quincke-type spinal needle advanced slowly under fluoroscopy and placed in the area of the right ischial bursa. Needle placement confirmed with AP view under fluoroscopy. Then 1 mL of Isovue 200 was injected, confirming no vascular uptake. Then a total of 4 ML of Marcaine 0.5% mixed with 40 mg of Kenalog injected after negative aspiration for heme. No paresthesias noted during the injection and needle was removed and a dressing applied. Patient tolerated the procedure well without any complication and she will follow up with the pain clinic in a few weeks. Patient discharged home in stable condition
[2019-05-27 08:53] VITALS: BP 168/85; PULSE 85; RESP 19
--- NOTE | 2019-05-27 09:50 | FL ---
EXAMINATION TYPE: FL guided needle localization DATE OF EXAM: 05/27/2019 CLINICAL HISTORY: Right facial injection for back pain and pelvic pain. TECHNIQUE: Fluoroscopy. COMPARISON: None. FINDINGS: Fluoroscopic guidance was provided during pain relief procedure performed by Dr. Valdivia. A total of 4 seconds of fluoroscopic time was utilized during the procedure and two spot images are acquired. Images acquired shows needle localization during a right atrial injection. IMPRESSION: As Above. MTDD
== END 2019-05-27 08:53 | disposition home or self-care (01) ==
LOC: ORPAIN 06:24
PROVIDERS: ATTEND Anesthesiology
DX: M70.71 Other bursitis of hip, right hip (principal); M47.816 Spondylosis without myelopathy or radiculopathy, lumbar region; M46.1 Sacroiliitis, not elsewhere classified; E13.9 Other specified diabetes mellitus without complications; F17.200 Nicotine dependence, unspecified, uncomplicated; Z79.1 Long term (current) use of non-steroidal anti-inflammatories (NSAID); Z79.84 Long term (current) use of oral hypoglycemic drugs; Z79.899 Other long term (current) drug therapy
CPT/HCPCS: 20610; 77002

== ENCOUNTER → 2019-06-09 | Outpatient (CLI) | payer OTHER ==
--- NOTE | 2019-06-09 09:41 | MR ---
EXAMINATION TYPE: MR knee LT wo con DATE OF EXAM: 06/09/2019 COMPARISON: None HISTORY: Pain in left knee TECHNIQUE: Multiplanar, multisequence imaging of the left knee is performed without IV contrast. FINDINGS: There is a 2 x 1 x 4.4 cm popliteal fossa cyst. Motion artifact limits the exam. Small amount of fluids patellar bursa. There is fibrillation of the lateral patellar facet. Retinaculum intact. Quadriceps and patellar tendons Due to artifact assessment of the menisci limited. Does appear to be grade 3 abnormal signal involvin g the posterior horn and body of the lateral meniscus. Intrasubstance signal posterior horn medial me niscus most typical of myxoid degeneration. Posterior cruciate ligament is intact. Motion artifact limits assessment of the ACL. Positioning like ly accounts for the reduced definition the posterior fibers of the ACL which appear to be intact on t he coronal images with no definite tear. Correlate clinically. Lateral collateral and medial collater al ligaments are intact. No marrow edema or contusion. Narrowing of the joint spaces compatible osteoarthritis. No erosive felecia nges. IMPRESSION: 1. Findings compatible with a posterior horn and body lateral meniscal tear. 2. Exam limited by motion artifact no definite ligamentous tear as discussed above. 3. There is a 2 x 1 x 4.4 cm popliteal fossa cyst.
== END ==
LOC: RADMRIMAIN 08:42
PROVIDERS: ATTEND Orthopaedic Surgery
DX: M71.22 Synovial cyst of popliteal space [Baker], left knee (principal)

== ENCOUNTER → 2019-06-23 | Outpatient (CLI) | payer OTHER ==
[2019-06-23 14:14] VITALS: BP 128/76; PULSE 95; RESP 16
--- NOTE | 2019-06-23 15:55 | P.PAINPG ---
Subjective Progress Note Date: 06/23/19 Patient is a 59-year-old male with right-sided buttock and back pain. He presents for follow-up after his right ischial bursa injection with steroid. He states that his buttock pain is very improved. And he is much more functional. However he does have some pain located at the right iliac crest area. This is worse with activity. We have attempted numerous procedures, and his function has greatly improved and is very thankful for this. Objective - Vital Signs Vital signs: Vital Signs Temp Pulse 95 06/23/19 14:11 Resp 16 06/23/19 14:11 BP 128/76 06/23/19 14:11 Pulse Ox 96 06/23/19 14:11 Intake & Output 06/22/19 06/23/19 06/23/19 18:59 06:59 18:59 Weight 127.006 kg - Exam Vital Signs: Reviewed in EMR GENERAL: Well appearing, in no acute distress, PSYCH: Mood and affect is appropriate. Awake, alert, and oriented SKIN: Skin color, texture, turgor normal, no rashes or lesions HEENT: Normocephalic, atraumatic. EOM intact CV: No pedal edema RESP: Respirations are unlabored, no audible wheezing GI: Abdomen non-distended MUSCULOSKELETAL: Bilateral upper and lower extremity strength is normal and symmetric. No atrophy or tone abnormalities are noted. Lumbar spine: No pain to palpation over the lumbar spine and paraspinous muscles. Buttocks: Positve pain to palpation over the PSIS, Monica test is positive on the right side Extremities: Peripheral joint ROM is full and pain free without obvious instability or laxity in all four extremities. No edema or skin discolorations noted. Gait: Gait is anantalgic NEUR:No loss of sensation is noted. Cranial nerves are grossly intact. Assessment and Plan Assessment: This is a 59-year-old male who presents with right low back and buttock pain. He has already had several SI joint injections and an SI RFA just a few months ago. He most recently had a right ischial bursa injection with steroid. His clinical picture is most consistent with right SI joint dysfunction. However he has recently had procedures related to this. Overall he is very happy with his pain control. We will defer procedures at this time Assessment: 1. SI joint dysfunction 2. Obesity Plan: 1. Explanation: I spoke to him about the causes of his pain 2. Opioid agreement: None 3. Counseling: The patient was counseled extensively on BODY MASS INDEX, EXERCISE. Specifically, the patient was instructed regarding the importance of weight control, and exercise in the context of both chronic pain and overall health. 4. Procedures: None At this time.. However can consider SI joint injections if pain worsens 5. Consultations: None 6. Investigations: None 7. Medications: Continue [id number] medication 8. Disposition: Return in 3 months or sooner if pain worsens , PQRS Measure Charge Sheet Measure #226: Tobacco Use: Screen & Cessation Intervention: Pt screened for tobacco use AND intervention given Measure #111: Pneumonia Vaccination: Pneumococcal vaccine administered or previously received Measure #47: Advance Care Plan: Advance care planning discussed & documented, pt chose/unable to give Measure #412: Opioid Treatment Agreement: No documentation of signed opioid treatment agreement Measure #131: Pain Assessment & Follow-up: Pain positive & plan documented, Follow-up scheduled Measure #431: Unhealthy Alcohol Use Preventative Care & Scrn: Patient not identified as an unhealthy alcohol user PQRS Narrative: Smoking Status Current every day smoker Blood Pressure 128/76 Pain Intensity [Right Sacrum] 6 Scale Used Numeric (1 - 10) Hx Alcohol Use (MH) No Home Medications: Ambulatory Orders Albuterol Inhaler [Ventolin Hfa Inhaler] 2 puff INHALATION RT-QID PRN 08/14/18 Simvastatin 80 mg PO DAILY 08/14/18 Albuterol Nebulized [Ventolin Nebulized] 2.5 mg INHALATION RT-Q4H PRN 09/05/18 Budesonide-Formot 160-4.5 Mcg [Symbicort 160-4.5 Mcg Inhaler] 2 puff INHALATION RT-BID 09/05/18 Lisinopril-Hctz 20-25 mg [Zestoretic 20-25] 1 tab PO DAILY 09/05/18 tiZANidine [Zanaflex] 4 mg PO BID 09/23/18 Multivit-Min/FA/Lycopen/Lutein [Centrum Silver Men Tablet] 1 tab PO DAILY 01/23/19 Omeprazole 40 mg PO DAILY 03/14/19 metFORMIN HCL 1,000 mg PO BID 03/14/19 Loratadine [Claritin] 10 mg PO DAILY 05/15/19 Ibuprofen [Motrin] 800 mg PO BID 06/23/19 Controlled Substance Measures - Controlled Substance Measures Is patient prescribed a controlled substance at discharge?: No
== END | disposition home or self-care (01) ==
LOC: PNWHC3 13:45
PROVIDERS: ATTEND Student in an Organized Health Care Education/Training Program
DX: M53.3 Sacrococcygeal disorders, not elsewhere classified (principal); E66.9 Obesity, unspecified; F17.200 Nicotine dependence, unspecified, uncomplicated; Z68.41 Body mass index [BMI] 40.0-44.9, adult; Z98.890 Other specified postprocedural states; Z79.84 Long term (current) use of oral hypoglycemic drugs; Z79.51 Long term (current) use of inhaled steroids; Z79.899 Other long term (current) drug therapy
CPT/HCPCS: 99211

== ENCOUNTER 2019-07-25 08:12 | Day surgery (SDC) | payer OTHER ==
[2019-07-23 09:36] VITALS: BMI 38.4
--- NOTE | 2019-07-24 10:59 | HP ---
HISTORY AND PHYSICAL CHIEF COMPLAINT: Left knee pain. HISTORY OF PRESENT ILLNESS: The patient is a 59-year-old retired gentleman who presents with progressive left knee pain and mechanical symptoms of the past several months. He notes intense lateral pain along with clicking and stiffness. He has been taking ibuprofen with only partial temporary relief. PAST MEDICAL HISTORY: Significant for asthma, COPD, type 2 diabetes, hypercholesterolemia, hypertension, and peptic ulcer disease. PAST SURGICAL HISTORY: Significant for previous lumbar spine surgery. CURRENT MEDICATIONS: 1. Albuterol. 2. Lisinopril. 3. Metformin. 4. Omeprazole. 5. Simvastatin. 6. Ibuprofen. ALLERGIES: She notes allergies to CODEINE, WELLBUTRIN, and GABAPENTIN. FAMILY HISTORY: Family history is noncontributory. SOCIAL HISTORY: Significant for 1-1/2 pack per day tobacco use. REVIEW OF SYSTEMS: Sixteen-point review of systems otherwise reviewed and is noncontributory. PHYSICAL EXAMINATION: On examination, the patient is approximately 5 feet 10 inches, 270 pounds of endomorphic habitus. HEENT exam is nonfocal. Neck is supple. He has painless passive motion of his left hip. Straight leg raise is negative. Active motion left knee -12 to 125 degrees of flexion. He has a moderate effusion. He is tender about the lateral joint line. Collaterals are stable, Suzanna's negative, Rashawn's elicits lateral pain. MRI report 06/09/2019 shows a posterior medial and lateral meniscal tear. IMPRESSION: Left knee internal derangement with symptomatic lateral meniscal tear. RECOMMENDATIONS: I talked to the patient at length regarding his condition along with treatment options. At this point, he is having pain and mechanical symptoms that limit him. After thorough discussion, he opts to proceed with surgery. We will plan to proceed with arthroscopic evaluation with probable partial lateral meniscectomy. We will likely perform that as an outpatient procedure. Risks and benefits were discussed at length in layman's terms. MMODL / IJN: [id number] /
[~2019-07-25 08:12] MED LIST changes: +DEXAMETHASONE SOD PHOSPHATE 10 MG/ML 1 ML VIAL IV ONE; +HYDROmorphone 0.5 MG/0.5 ML SYRINGE IVP PRN; +LIDOCAINE 1% 20 ML VIAL (10MG/ML) FOR IV START INTRADERMA PRN; +ceFAZolin 3 GM in SODIUM CHLORIDE 0.9% 100 ML IVPB ONE
[2019-07-25 09:02] VITALS: TEMP 98.1
[2019-07-25 09:10] LABS: Glucose,Whole Blood 159 mg/dL (75-99)
[2019-07-25] MEDS ORDERED: PHENYLEPHRINE-0.9% NACL SYG 1 MG/10 ML SYRINGE ONE (09:50)
[2019-07-25] MEDS ORDERED: PROPOFOL 10 MG/ML 20 ML VIAL IV ONE (09:50)
[2019-07-25] MEDS ORDERED: MIDAZOLAM 2 MG/2 ML VIAL ONE (09:50)
[2019-07-25] MEDS ORDERED: fentaNYL (PF) 50 MCG/ML 2 ML AMP ONE (09:50)
[2019-07-25] MEDS ORDERED: LIDOCAINE 1% INJ 10MG/ML (20 ML MDV) ONE (09:50)
[2019-07-25] MEDS ORDERED: LACTATED RINGERS 1,000 ML IV ONE (10:34)
[2019-07-25] MEDS ORDERED: EPINEPHrine (PF) 1 ML in SODIUM CHLORIDE 0.9% IRRIGATIO 3,000 ML IRRIGATION ONE ×4 (10:35)
--- NOTE | 2019-07-25 10:44 | P.OP ---
Date of Procedure: 07/25/19 Preoperative Diagnosis: Left knee internal derangement Postoperative Diagnosis: Left knee middle one third lateral meniscal tear, reactive synovitis of the medial, lateral, and patellofemoral compartments. Procedure(s) Performed: Left knee arthroscopic partial lateral meniscectomy, partial synovectomy of the medial, lateral, and patellofemoral compartments. Anesthesia: GETA Surgeon: Mike Reynoso Estimated Blood Loss (ml): 10 Pathology: none sent Condition: stable Disposition: PACU Indications for Procedure: The patient's a 59-year-old presents with progressive left knee pain and mechanical symptoms despite conservative measures. A discussion of the risks and benefits of operative intervention versus continued conservative measures was made with the patient. He opted to proceed with surgery. Operative risks to include infection neurovascular injury, development of blood clots, possible incomplete resolution of symptoms, possible worsening symptoms and need for subsequent procedures was discussed. Informed consent was obtained. Operative Findings: As below Description of Procedure: The patient was brought to the operating room, and after induction of general anesthesia examined the left knee. Collaterals were stable, Suzanna was negative, and posterior drawer was negative. The left lower extremity was prepped and draped in a normal fashion. A superior lateral portal was made through a 3 mm skin incision superior and lateral to the patella. This was used for outflow. A lateral portal was made through a 5 mm vertical skin incision lateral to the patella tendon above the joint line. Diagnostic arthroscopy was performed. On inspection of the medial compartment, no significant meniscal pathology was noted. Reactive synovitis involving the anterior medial compartment was treated with motorized shaver as well as the anterolateral compartment.. On inspection of the notch, the anterior cruciate ligament appeared to be intact. On inspection of the lateral compartment a complex tear involving the middle one third was noted in the white-red junction. This was debrided back to stable base with straight baskets and a motorized shaver. Grade 2-3 chondral changes were noted diffusely in the lateral compartment. On inspection of the patellofemoral articulation reactive synovitis was noted and was debrided with a motorized shaver.. The gutters were clear debris. The knee was then thoroughly irrigated. The portals were closed with Steri-Strips. A sterile dressing was applied in addition to a compression stocking. The patient was awoken from general anesthesia and transferred to recovery room in good condition. Blood loss was estimated at 10 mL. No complications were incurred.
[2019-07-25] MEDS ORDERED: HYDROmorphone 1 MG/ML 1 ML SYRINGE IVP ONE ×3 (10:52→11:25)
[2019-07-25 11:10] VITALS: RESP 16
[2019-07-25] MEDS ORDERED: KETOROLAC 30 MG/ML 1 ML VIAL IVP ONE (11:32)
[2019-07-25] MEDS ORDERED: HYDROcodone/APAP 5-325MG 1 EACH TAB PO ONE (11:55)
[2019-07-25 12:27] VITALS: BP 128/77; PULSE 74
== END 2019-07-25 12:57 | disposition home or self-care (01) ==
LOC: OR 08:12
PROVIDERS: ATTEND Orthopaedic Surgery
DX: S83.272A Complex tear of lateral meniscus, current injury, left knee, initial encounter (principal); X58.XXXA Exposure to other specified factors, initial encounter; M65.862 Other synovitis and tenosynovitis, left lower leg; I10 Essential (primary) hypertension; E11.9 Type 2 diabetes mellitus without complications; K21.9 Gastro-esophageal reflux disease without esophagitis; E78.5 Hyperlipidemia, unspecified; J44.9 Chronic obstructive pulmonary disease, unspecified; E78.00 Pure hypercholesterolemia, unspecified; G47.33 Obstructive sleep apnea (adult) (pediatric); F17.210 Nicotine dependence, cigarettes, uncomplicated; Z79.1 Long term (current) use of non-steroidal anti-inflammatories (NSAID); Z79.51 Long term (current) use of inhaled steroids; Z79.899 Other long term (current) drug therapy; Z88.5 Allergy status to narcotic agent; Z88.8 Allergy status to other drugs, medicaments and biological substances; Z98.890 Other specified postprocedural states; Z87.11 Personal history of peptic ulcer disease
CPT/HCPCS: 29881; 29876; J2250; J1100; J0690; J0171; J2001; J3010; J1885; J1170; J2370; J2704

== ENCOUNTER 2019-08-16 01:19 | Emergency (ER) | payer OTHER ==
[2019-08-16 01:37] VITALS: BP 156/76; PULSE 95; RESP 18; TEMP 99.1
[2019-08-16] MEDS ORDERED: LIDOCAINE 1% INJ 10MG/ML (20 ML MDV) SQ ONE (01:57)
[2019-08-16] MEDS ORDERED: CEPHALEXIN 500MG STARTER PACK 4 CAP BTL PO STA (02:03)
--- NOTE | 2019-08-16 02:19 | ED ---
Wound/Laceration HPI - General Chief Complaint: Wound/Laceration Stated Complaint: Hand Lac Time Seen by Provider: 08/16/19 01:39 Source: patient Mode of arrival: ambulatory Limitations: no limitations - History of Present Illness Initial Comments: 59-year-old male patient presents to the emergency department today for evaluation of injury to the left hand. Patient states he was using scissors when he slipped and stabbed his hand with the point he hand. Patient has been having bleeding from the site. Injury occurred approximately 2 hours ago. Pat ient did clean the area was able to get bleeding under control area denies use of anticoagulant or antiplatelet medications. Does have a history of diabetes. Denies any other injuries. Tetanus is up-to-date. Denies any numbness or tingling to the hand. Denies any difficulty with range of motion. Patient denies any headache, neck pain, back pain, chest pain, shortness of breath, dizziness, weakness, abdominal pain, nausea, vomiting, or difficulties with bowel movements or urination. - Related Data Home Medications Medication Instructions Recorded Confirmed Albuterol Inhaler [Ventolin Hfa 2 puff INHALATION RT-QID PRN 08/14/18 07/25/19 Inhaler] Simvastatin 80 mg PO DAILY 08/14/18 07/25/19 Albuterol Nebulized [Ventolin 2.5 mg INHALATION RT-Q4H PRN 09/05/18 07/25/19 Nebulized] Budesonide-Formot 160-4.5 Mcg 2 puff INHALATION RT-BID 09/05/18 07/25/19 [Symbicort 160-4.5 Mcg Inhaler] Lisinopril-Hctz 20-25 mg 1 tab PO DAILY 09/05/18 07/25/19 [Zestoretic 20-25] tiZANidine [Zanaflex] 4 mg PO BID 09/23/18 07/25/19 Omeprazole 40 mg PO DAILY 03/14/19 07/25/19 metFORMIN HCL 1,000 mg PO BID 03/14/19 07/25/19 Loratadine [Claritin] 10 mg PO DAILY 05/15/19 07/25/19 Previous Rx's Medication Instructions Recorded HYDROcodone/APAP 5-325MG [[place] 1 tab PO Q6HR PRN 7 Days #21 tab 07/25/19 5-325] Cephalexin [Keflex] 500 mg PO Q6H #28 cap 08/16/19 Allergies Allergy/AdvReac Type Severity Reaction Status Date / Time codeine Allergy Nausea Verified 08/16/19 01:37 bupropion [From Wellbutrin] AdvReac Nausea & Verified 08/16/19 01:37 Vomiting gabapentin AdvReac Nausea & Verified 08/16/19 01:37 Vomiting/dizzyness pregabalin AdvReac Nausea & Verified 08/16/19 01:37 Vomiting tramadol AdvReac Nausea & Verified 08/16/19 01:37 Vomiting Review of Systems ROS Statement: Those systems with pertinent positive or pertinent negative responses have been documented in the HPI. ROS Other: All systems not noted in ROS Statement are negative. Past Medical History Past Medical History: COPD, Diabetes Mellitus, GERD/Reflux, Hyperlipidemia, Hypertension, Sleep Apnea/CPAP/BIPAP Additional Past Medical History / Comment(s): cpap with O2 , Chronic back pain, hx of jaw fx 1979 History of Any Multi-Drug Resistant Organisms: None Reported Past Surgical History: Back Surgery Additional Past Surgical History / Comment(s): lumbar surgery ; pain procedures Past Anesthesia/Blood Transfusion Reactions: No Reported Reaction Past Psychological History: No Psychological Hx Reported Smoking Status: Current every day smoker - Past Family History Mother Family Medical History: No Reported History General Exam Limitations: no limitations General appearance: alert, in no apparent distress, other (Physical well- developed, well-nourished adult male patient in no acute distress. Vital signs upon presentation are temperature 99.1F, pulse 95, respirations 18, blood pressure 156/76, pulse ox 96% on room air.) Respiratory exam: Present: normal lung sounds bilaterally. Absent: respiratory distress, wheezes, rales, rhonchi, stridor Cardiovascular Exam: Present: regular rate, normal rhythm, normal heart sounds. Absent: systolic murmur, diastolic murmur, rubs, gallop, clicks Extremities exam: Present: full ROM, normal capillary refill, other (There is puncture wound noted to the webbing between the first and second digits on the left hand. There is mild active bleeding. Skin is otherwise pink, warm, dry. Cap refills less than 3 seconds. Pedal pulses 2+ and equal bilaterally.). Absent: normal inspection, tenderness, pedal edema, joint swelling, calf tenderness Course Vital Signs 08/16/19 01:35 Temperature 99.1 F Pulse Rate 95 Respiratory 18 Rate Blood Pressure 156/76 O2 Sat by Pulse 96 Oximetry Procedures - Laceration Laceration #1 Consent Obtained: verbal consent Indication: other (Puncture) Site: hand Anesthetic Used: lidocaine 1% Anesthesia Technique: local infiltration Amount (mls): 3 Pre-repair: irrigated extensively Patient Tolerated Procedure: well, no complications Additional Comments: Irrigation only. Puncture wound, did leave this open. Medical Decision Making - Medical Decision Making 59-year-old male patient presents to the emergency department today for evaluation of puncture wound to the left hand. Physical examination did reveal puncture to the area between the left first and second digit. Patient uses the scissors that caused the injury with parts from his fish tank. He does have diabetes. Did anesthetize the area, performed extensive irrigation. Patient was started on antibiotics. He'll be discharged to follow-up with his primary care physician for recheck in 1-2 days. Return parameters discussed in detail. He verbalizes understanding and agrees with this plan. Disposition Clinical Impression: Puncture wound of left hand Disposition: HOME SELF-CARE Condition: Good Instructions (If sedation given, give patient instructions): Puncture Wound (ED) Additional Instructions: Complete antibiotic prescription in full. Cleanse wound twice daily with warm water and antibacterial soap. Monitor for signs or symptoms of infection including but not limited to redness, swelling, drainage of pus, fever, or chills. Follow-up with your primary care physician for recheck in 1-2 days. Return to the emergency department immediately for any new, worsening, or concerning symptoms. Prescriptions: Cephalexin [Keflex] 500 mg PO Q6H #28 cap Is patient prescribed a controlled substance at d/c from ED?: No Referrals: [facility],Clinic [Primary Care Provider] - 1-2 days Time of Disposition: 02:19
== END 2019-08-16 02:26 | disposition home or self-care (01) ==
LOC: EC 01:19
DX: S61.432A Puncture wound without foreign body of left hand, initial encounter (principal); J44.9 Chronic obstructive pulmonary disease, unspecified; E11.9 Type 2 diabetes mellitus without complications; K21.9 Gastro-esophageal reflux disease without esophagitis; E78.5 Hyperlipidemia, unspecified; I10 Essential (primary) hypertension; G47.30 Sleep apnea, unspecified; G89.29 Other chronic pain; F17.200 Nicotine dependence, unspecified, uncomplicated; Z88.5 Allergy status to narcotic agent; Z88.8 Allergy status to other drugs, medicaments and biological substances; Z79.51 Long term (current) use of inhaled steroids; Z79.84 Long term (current) use of oral hypoglycemic drugs; Z79.899 Other long term (current) drug therapy; Z99.81 Dependence on supplemental oxygen; Z99.89 Dependence on other enabling machines and devices; W26.8XXA Contact with other sharp object(s), not elsewhere classified, initial encounter; Y93.89 Activity, other specified
CPT/HCPCS: 99282; 64450; J2001

== ENCOUNTER 2019-12-11 15:36 | Inpatient (IN) | payer OTHER, MEDICARE ==
[2019-12-11] MEDS ORDERED: SODIUM CHLORIDE 0.9% 1,000 ML IV STA (15:54)
[2019-12-11] MEDS ORDERED: NITROGLYCERIN OINT 1 INCH/GM PACKET TOPICAL STA (15:54)
[2019-12-11] MEDS ORDERED: ASPIRIN 81 MG PO STA (15:54)
[2019-12-11] MEDS ORDERED: ACETAMINOPHEN TAB 500 MG TAB PO STA (15:55)
[2019-12-11] MEDS ORDERED: IBUPROFEN 600 MG TAB PO STA (15:55)
--- NOTE | 2019-12-11 15:58 | ED ---
General Adult HPI - General Chief complaint: Chest Pain Stated complaint: SOB Time Seen by Provider: 12/11/19 15:40 Source: patient, family, RN notes reviewed, old records reviewed Mode of arrival: wheelchair Limitations: no limitations - History of Present Illness Initial comments: This is a 59-year-old male who presents emergency department with past medical history significant for smoking diabetes hypertension high cluster. Patient states since Sunday is been having significant abdominal pain that was radiating up into his chest. Patient states since last night he's been having intermittent chest pain on the left side of his chest that makes him sweat and become very short of breath. Patient denies any fever chills per patient denies any cough. Patient states he does have a history of COPD. Patient denies any abdominal pain currently he says it was very painful last night he says it was diffuse bleeding in the abdomen. Patient denies any vomiting or diarrhea. Patient denies any lightheadedness or dizziness. - Related Data Home Medications Medication Instructions Recorded Confirmed Albuterol Inhaler [Ventolin Hfa 2 puff INHALATION RT-QID PRN 08/14/18 07/25/19 Inhaler] Simvastatin 80 mg PO DAILY 08/14/18 07/25/19 Albuterol Nebulized [Ventolin 2.5 mg INHALATION RT-Q4H PRN 09/05/18 07/25/19 Nebulized] Budesonide-Formot 160-4.5 Mcg 2 puff INHALATION RT-BID 09/05/18 07/25/19 [Symbicort 160-4.5 Mcg Inhaler] Lisinopril-Hctz 20-25 mg 1 tab PO DAILY 09/05/18 07/25/19 [Zestoretic 20-25] tiZANidine [Zanaflex] 4 mg PO BID 09/23/18 07/25/19 Omeprazole 40 mg PO DAILY 03/14/19 07/25/19 metFORMIN HCL 1,000 mg PO BID 03/14/19 07/25/19 Loratadine [Claritin] 10 mg PO DAILY 05/15/19 07/25/19 Previous Rx's Medication Instructions Recorded HYDROcodone/APAP 5-325MG [[place] 1 tab PO Q6HR PRN 7 Days #21 tab 07/25/19 5-325] Cephalexin [Keflex] 500 mg PO Q6H #28 cap 08/16/19 Allergies Allergy/AdvReac Type Severity Reaction Status Date / Time codeine Allergy Nausea Verified 12/11/19 15:37 bupropion [From Wellbutrin] AdvReac Nausea & Verified 12/11/19 15:37 Vomiting gabapentin AdvReac Nausea & Verified 12/11/19 15:37 Vomiting/dizzyness pregabalin AdvReac Nausea & Verified 12/11/19 15:37 Vomiting tramadol AdvReac Nausea & Verified 12/11/19 15:37 Vomiting Review of Systems ROS Statement: Those systems with pertinent positive or pertinent negative responses have been documented in the HPI. ROS Other: All systems not noted in ROS Statement are negative. Past Medical History Past Medical History: COPD, Diabetes Mellitus, GERD/Reflux, Hyperlipidemia, Hypertension, Sleep Apnea/CPAP/BIPAP Additional Past Medical History / Comment(s): cpap with O2 , Chronic back pain, hx of jaw fx 1979 History of Any Multi-Drug Resistant Organisms: None Reported Past Surgical History: Back Surgery Additional Past Surgical History / Comment(s): lumbar surgery ; pain procedures Past Anesthesia/Blood Transfusion Reactions: No Reported Reaction Past Psychological History: No Psychological Hx Reported Smoking Status: Current every day smoker Past Alcohol Use History: None Reported Past Drug Use History: None Reported - Past Family History Mother Family Medical History: No Reported History General Exam - General Exam Comments Initial Comments: GENERAL: Patient is well-developed and well-nourished. Patient is nontoxic and well- hydrated and is in moderate distress. Patient is diaphoretic ENT: Neck is soft and supple. No significant lymphadenopathy is noted. Oropharynx is clear. Moist mucous membranes. Neck has full range of motion without eliciting any pain. EYES: The sclera were anicteric and conjunctiva were pink and moist. Extraocular movements were intact and pupils were equal round and reactive to light. Eyelids were unremarkable. PULMONARY: Unlabored respirations. Good breath sounds bilaterally. No audible rales rhonchi or wheezing was noted. CARDIOVASCULAR: There is a regular rate and rhythm without any murmurs gallops or rubs. ABDOMEN: Soft and nontender with normal bowel sounds. Abdomen is mildly distended but I cannot find any area of tenderness SKIN: Skin is clear with no lesions or rashes and otherwise unremarkable. NEUROLOGIC: Patient is alert and oriented x3. Cranial nerves II through XII are grossly intact. Motor and sensory are also intact. Normal speech, volume and content. Symmetrical smile. MUSCULOSKELETAL: Normal extremities with adequate strength and full range of motion. LYMPHATICS: No significant lymphadenopathy is noted PSYCHIATRIC: Normal psychiatric evaluation. Limitations: no limitations Course Vital Signs 12/11/19 12/11/19 12/11/19 15:38 16:00 16:15 Temperature 98.9 F Pulse Rate 101 H 98 91 Respiratory 18 14 17 Rate Blood Pressure 92/58 90/60 76/54 O2 Sat by Pulse 97 98 97 Oximetry 12/11/19 12/11/19 12/11/19 16:30 17:00 17:15 Temperature Pulse Rate 89 86 90 Respiratory 17 18 19 Rate Blood Pressure 90/48 89/71 89/71 O2 Sat by Pulse 97 97 97 Oximetry 12/11/19 12/11/19 12/11/19 17:30 17:45 18:00 Temperature Pulse Rate 84 82 82 Respiratory 17 16 18 Rate Blood Pressure 102/62 94/61 86/59 O2 Sat by Pulse 96 95 95 Oximetry 12/11/19 12/11/19 12/11/19 18:15 18:30 18:45 Temperature Pulse Rate 79 83 83 Respiratory 17 22 19 Rate Blood Pressure 100/64 108/64 104/78 O2 Sat by Pulse 94 L 95 95 Oximetry 12/11/19 19:00 Temperature Pulse Rate 83 Respiratory 18 Rate Blood Pressure 99/63 O2 Sat by Pulse 96 Oximetry Medical Decision Making - Medical Decision Making EKG shows normal sinus rhythm at 90 bpm SC interval is on a 36 dresses 90 QT interval 340 QTC is 444. Patient's EKG shows no ST segment elevation or depression. I had EKG repeated it showed a normal sinus rhythm at 91 bpm SC interval 142 QRS is his 102 QT is 362 QTC is 445 patient's EKG shows no ST segment elevation or depression. CT of the chest showed no PE or any other abnormality. CT of the abdomen showed no acute abnormality. Patient got IV fluids in the emergency department felt co nsiderably better pressure came up to about 105 systolic and was stable. I went back into reevaluate the patient he was feeling considerably better he was not having any chest pain at this time. Patient received magnesium sulfate 2 g. Patient received fluids. Patient will have troponins repeated have cardiology consult. - Lab Data Result diagrams: 12/11/19 15:55 12/11/19 15:55 Lab Results 12/11/19 12/11/19 12/11/19 Range/Units 15:55 15:55 15:55 WBC 12.8 H (3.8-10.6) k/uL RBC 4.90 (4.30-5.90) m/uL Hgb 14.6 (13.0-17.5) gm/dL Hct 42.8 (39.0-53.0) % MCV 87.3 (80.0-100.0) fL MCH 29.8 (25.0-35.0) pg MCHC 34.2 (31.0-37.0) g/dL RDW 12.3 (11.5-15.5) % Plt Count 237 (150-450) k/uL Neutrophils % 83 % Lymphocytes % 8 % Monocytes % 4 % Eosinophils % 2 % Basophils % 1 % Neutrophils # 10.7 H (1.3-7.7) k/uL Lymphocytes # 1.0 (1.0-4.8) k/uL Monocytes # 0.5 (0-1.0) k/uL Eosinophils # 0.2 (0-0.7) k/uL Basophils # 0.2 (0-0.2) k/uL PT 11.2 (9.0-12.0) sec INR 1.1 (<1.2) APTT 26.6 (22.0-30.0) sec D-Dimer 1.52 H (<0.60) mg/L FEU Sodium 126 L (137-145) mmol/L Potassium 4.0 (3.5-5.1) mmol/L Chloride 91 L (98-107) mmol/L Carbon Dioxide 21 L (22-30) mmol/L Anion Gap 14 mmol/L BUN 25 H (9-20) mg/dL Creatinine 1.62 H (0.66-1.25) mg/dL Est GFR (CKD-EPI)AfAm 53 (>60 ml/min/1.73 sqM) Est GFR (CKD-EPI)NonAf 46 (>60 ml/min/1.73 sqM) Glucose 252 H (74-99) mg/dL Plasma Lactic Acid Paco (0.7-2.0) mmol/L Calcium 8.6 (8.4-10.2) mg/dL Magnesium 1.1 L (1.6-2.3) mg/dL Total Bilirubin 1.1 (0.2-1.3) mg/dL AST 105 H (17-59) U/L ALT 170 H (4-49) U/L Alkaline Phosphatase 231 H (38-126) U/L Troponin I (0.000-0.034) ng/mL NT-Pro-B Natriuret Pep pg/mL Total Protein 6.8 (6.3-8.2) g/dL Albumin 3.9 (3.5-5.0) g/dL Influenza Type A RNA (Not Detectd) Influenza Type B (PCR) (Not Detectd) 12/11/19 12/11/19 12/11/19 Range/Units 15:55 15:55 15:55 WBC (3.8-10.6) k/uL RBC (4.30-5.90) m/uL Hgb (13.0-17.5) gm/dL Hct (39.0-53.0) % MCV (80.0-100.0) fL MCH (25.0-35.0) pg MCHC (31.0-37.0) g/dL RDW (11.5-15.5) % Plt Count (150-450) k/uL Neutrophils % % Lymphocytes % % Monocytes % % Eosinophils % % Basophils % % Neutrophils # (1.3-7.7) k/uL Lymphocytes # (1.0-4.8) k/uL Monocytes # (0-1.0) k/uL Eosinophils # (0-0.7) k/uL Basophils # (0-0.2) k/uL PT (9.0-12.0) sec INR (<1.2) APTT (22.0-30.0) sec D-Dimer (<0.60) mg/L FEU Sodium (137-145) mmol/L Potassium (3.5-5.1) mmol/L Chloride (98-107) mmol/L Carbon Dioxide (22-30) mmol/L Anion Gap mmol/L BUN (9-20) mg/dL Creatinine (0.66-1.25) mg/dL Est GFR (CKD-EPI)AfAm (>60 ml/min/1.73 sqM) Est GFR (CKD-EPI)NonAf (>60 ml/min/1.73 sqM) Glucose (74-99) mg/dL Plasma Lactic Acid Paco 3.9 H* (0.7-2.0) mmol/L Calcium (8.4-10.2) mg/dL Magnesium (1.6-2.3) mg/dL Total Bilirubin (0.2-1.3) mg/dL AST (17-59) U/L ALT (4-49) U/L Alkaline Phosphatase (38-126) U/L Troponin I 0.048 H* (0.000-0.034) ng/mL NT-Pro-B Natriuret Pep 415 pg/mL Total Protein (6.3-8.2) g/dL Albumin (3.5-5.0) g/dL Influenza Type A RNA (Not Detectd) Influenza Type B (PCR) (Not Detectd) 12/11/19 Range/Units 16:20 WBC (3.8-10.6) k/uL RBC (4.30-5.90) m/uL Hgb (13.0-17.5) gm/dL Hct (39.0-53.0) % MCV (80.0-100.0) fL MCH (25.0-35.0) pg MCHC (31.0-37.0) g/dL RDW (11.5-15.5) % Plt Count (150-450) k/uL Neutrophils % % Lymphocytes % % Monocytes % % Eosinophils % % Basophils % % Neutrophils # (1.3-7.7) k/uL Lymphocytes # (1.0-4.8) k/uL Monocytes # (0-1.0) k/uL Eosinophils # (0-0.7) k/uL Basophils # (0-0.2) k/uL PT (9.0-12.0) sec INR (<1.2) APTT (22.0-30.0) sec D-Dimer (<0.60) mg/L FEU Sodium (137-145) mmol/L Potassium (3.5-5.1) mmol/L Chloride (98-107) mmol/L Carbon Dioxide (22-30) mmol/L Anion Gap mmol/L BUN (9-20) mg/dL Creatinine (0.66-1.25) mg/dL Est GFR (CKD-EPI)AfAm (>60 ml/min/1.73 sqM) Est GFR (CKD-EPI)NonAf (>60 ml/min/1.73 sqM) Glucose (74-99) mg/dL Plasma Lactic Acid Paco (0.7-2.0) mmol/L Calcium (8.4-10.2) mg/dL Magnesium (1.6-2.3) mg/dL Total Bilirubin (0.2-1.3) mg/dL AST (17-59) U/L ALT (4-49) U/L Alkaline Phosphatase (38-126) U/L Troponin I (0.000-0.034) ng/mL NT-Pro-B Natriuret Pep pg/mL Total Protein (6.3-8.2) g/dL Albumin (3.5-5.0) g/dL Influenza Type A RNA Not Detected (Not Detectd) Influenza Type B (PCR) Not Detected (Not Detectd) Disposition Clinical Impression: Chest pain, Hyponatremia, Hypomagnesemia, Renal insufficiency, Lactic acidosis Disposition: ADMITTED IP TO THIS HOSP Referrals: [facility],Clinic [Primary Care Provider] - 1-2 days Time of Disposition: 19:28
[2019-12-11 16:11] LABS: Basophils # (A) 0.2 k/uL (0-0.2); Basophils % (A) 1 %; Eosinophils # (A) 0.2 k/uL (0-0.7); Eosinophils % (A) 2 %; HCT 42.8 % (39.0-53.0); HGB 14.6 gm/dL (13.0-17.5); Lymphocytes % (A) 8 %; MCH 29.8 pg (25.0-35.0); MCHC 34.2 g/dL (31.0-37.0); MCV 87.3 fL (80.0-100.0); Mean Platelet Volume 8.1; Monocytes # (A) 0.5 k/uL (0-1.0); Monocytes % (A) 4 %; Neutrophils # (A) 10.7 k/uL (1.3-7.7); Neutrophils % (A) 83 %; Platelet Count 237 k/uL (150-450); RDW 12.3 % (11.5-15.5); WBC 12.8 k/uL (3.8-10.6)
[2019-12-11 16:24] LABS: Albumin 3.9 g/dL (3.5-5.0); Calcium 8.6 mg/dL (8.4-10.2); Magnesium 1.1 mg/dL (1.6-2.3); Total Bilirubin 1.1 mg/dL (0.2-1.3); Total Protein 6.8 g/dL (6.3-8.2)
[2019-12-11 16:27] LABS: INR 1.1 (<1.2); Partial Thromboplastin Time 26.6 sec (22.0-30.0); Prothrombin Time 11.2 sec (9.0-12.0)
[2019-12-11 16:38] LABS: D-Dimer 1.52 mg/L FEU (<0.60)
--- NOTE | 2019-12-11 17:27 | XR ---
EXAMINATION: XR chest 4V DATE AND TIME: 12/11/2019 5:14 PM CLINICAL INDICATION: PHH; Chest Pain TECHNIQUE: 3 frontal views and one lateral view COMPARISON: None FINDINGS: The lungs are clear. The pleural spaces are negative. The cardiac silhouette is not enlarged. The remainder of the mediastinal silhouette is unremarkable. The skeletal structures and soft tissues are negative for acute findings. IMPRESSION: NO ACUTE PROCESS.
--- NOTE | 2019-12-11 18:12 | CT ---
EXAMINATION TYPE: CT chest angio for PE with contrast and with 3-D reconstruction renderings DATE OF EXAM: 12/11/2019 HISTORY: Elevated d-dimer. Chest pain. Hypotension. Cold sweats. Abdominal pain. CT DLP: 827.9 mGycm. Automated exposure control for dose reduction was used. CONTRAST: CT Chest for pulmonary embolism performed with with IV Contrast, patient injected with 80 m L of Isovue 370. Three-D renderings. COMPARISON: Same day chest radiographs. No abdomen CT or MRI available for comparison. FINDINGS: LUNGS: The airways are unremarkable. There is hyperinflation consistent with COPD. There is no pulmon kavita edema or major atelectasis or evidence of pneumonia/pneumonitis. Pleural spaces are negative. MEDIASTINUM: There is satisfactory enhancement of the pulmonary artery and its branches; there is no CT evidence for pulmonary embolism. No cardiomegaly or pericardial effusion. However, left and right coronary calcifications are noted. There are aortic valve plane calcifications. No acute aortic abnor mality. No adenopathy. OTHER: There is a 3 cm low-attenuation right adrenal nodule, likely adenoma which can be proven with chemical shift MRI or dedicated adrenal CT without and with contrast. In addition, there is a 2 cm l ow-attenuation focus within the right kidney, likely renal cysts, which can be proven with renal prot ocol CT or MRI. IMPRESSION: 1. Negative for pulmonary embolism. 2. No acute pulmonary/pleural process. 3. Coronary arterial calcifications and aortic valve plane calcifications noted. Incidental: 3 cm right adrenal nodule as detailed.
--- NOTE | 2019-12-11 18:26 | CT ---
EXAMINATION TYPE: CT abdomen pelvis w con DATE OF EXAM: 12/11/2019 COMPARISON: None HISTORY: Elevated d-dimer. Chest pain. Hypotension. Cold sweats. Abdominal pain. TECHNIQUE: Departmental protocol. CT DLP: 2240.6 mGycm. Automated exposure control for dose reduction was used. CONTRAST: Performed without Oral Contrast and with IV Contrast, patient injected with mL of Isovue 370. FINDINGS: LUNG BASES: No significant abnormality is appreciated. LIVER/GB: No significant abnormality is appreciated. PANCREAS: No significant abnormality is seen. SPLEEN: No significant abnormality is seen. ADRENALS: There is a 3 cm low-attenuation right adrenal nodule, likely adenoma which can be proven wi chemical shift MRI or dedicated adrenal CT without and with contrast. Left adrenal is negative. KIDNEYS: Smoothly marginated 2 cm right renal cyst noted posterior laterally. No significant right or left renal abnormality is seen. FREE AIR: No free air is visualized. RETROPERITONEAL ADENOPATHY: No jonas adenopathy, but rinku hepatis and gastrohepatic ligament subcen timeter short axis nodes are noted. REPRODUCTIVE ORGANS: No significant abnormality is seen URINARY BLADDER: No significant abnormality is seen. PELVIC ADENOPATHY: None visualized. OSSEOUS STRUCTURES: No significant abnormality is seen. BOWEL: No significant abnormality is seen. OTHER: No acute vascular findings. Generalized atherosclerotic nonaneurysmal intimal calcifications n oted. IMPRESSION: 1. NO ACUTE PROCESS. 2. RIGHT ADRENAL 3 CM NODULE FOR WHICH THREE-MONTH FOLLOW-UP ADRENAL PROTOCOL CT OR MRI FOLLOW-UP TANIA VALIENTE IS ADVISED.
[2019-12-11] MEDS ORDERED: NITROGLYCERIN SL TABS 0.4 MG TAB SUBLINGUAL PRN (19:29)
[2019-12-11] MEDS: SODIUM CHLORIDE 0.9% 1,000 ML IV SCH (19:53)
[2019-12-11] MEDS: MAGNESIUM SULFATE-D5W PMX 1 GM in DEXTROSE/WATER 1 100ML.BAG IVPB SCH (19:53)
[2019-12-12] MEDS: NITROGLYCERIN OINT 1 INCH/GM PACKET TOPICAL SCH ×4 (00:23→18:19)
[2019-12-12] MEDS: MAGNESIUM SULFATE-D5W PMX 1 GM in DEXTROSE/WATER 1 100ML.BAG IVPB SCH (00:23)
[2019-12-12] MEDS: SODIUM CHLORIDE 0.9% 1,000 ML IV SCH ×3 (03:40→22:25)
[2019-12-12 04:35] LABS: Cholesterol 114 mg/dL (<200); HDL Cholesterol 24 mg/dL (40-60); LDL Cholesterol,Calculated 29 mg/dL (0-99); Triglycerides 307 mg/dL (<150)
[2019-12-12 06:03] LABS: Glucose,Whole Blood 256 mg/dL (75-99)
--- NOTE | 2019-12-12 08:46 | P.CRDCN ---
History of Present Illness Consult date: 12/12/19 Requesting physician: Court Mary Consult reason: chest pain Chief complaint: Abdominal pain, chest pain, diaphoresis History of present illness: This is a 59-year-old gentleman with known history of COPD, diabetes, hypertension, hyperlipidemia, nicotine dependence, patient used to smoke 3 packs of cigarettes a day he states he is down to approximately a half a pack of cigarettes per day at this time. He states that on Sunday, he developed a spasm type pain on both sides of his abdomen which she states was severe. Subsequent to that he developed some pain in the left side of his chest, became extremely diaphoretic, he had no appetite but was drinking water profusely according to him. Because of the symptoms patient came to the emergency room for further evaluation and treatment. Patient does state that he had a temperature at home of 103. His chest x-ray on presentation here did not show any acute process. CAT scan of the abdomen and pelvis did not reveal any acute process, it did show a right adrenal 3 cm nodule for which a three-month follow-up is recommended. CTA of the chest was performed because of an elevated d-dimer, it was negative for pulmonary embolism, no acute pulmonary/pleural process. Coronary arterial calcifications and aortic valve calcifications are noted. EKG showed a normal sinus rhythm with an incomplete right bundle branch block pattern. His blood pressure on arrival here 92/58 with a heart rate of 100, 97% on room air. [employer] rature 98.9 at that time. This morning's blood pressure is 126/80, heart rate in the 100s, 92% on 5 L of oxygen, temperature 99.6. White blood cell count 12.8, hemoglobin 14.6, platelet count 237, d-dimer 1.5, sodium 126, potassium 4.0, BUN 25, creatinine 1.6. Magnesium 1.1, AST 105, ALT 170, alk phos 231, troponin 0.048, 0.038, 0.194. Influenza A and B were negative. Cholesterol 114, triglycerides 307, LDL 29, HDL 24. At the time of my examination this morning, the patient continues to be quite diaphoretic, he continues to have a nonproductive wheezy cough, denies any chest discomfort this morning, but is quite short of breath. Past Medical History Past Medical History: COPD, Diabetes Mellitus, GERD/Reflux, Hyperlipidemia, Hypertension, Sleep Apnea/CPAP/BIPAP Additional Past Medical History / Comment(s): cpap with O2 , Chronic back pain, hx of jaw fx 1978 History of Any Multi-Drug Resistant Organisms: None Reported Past Surgical History: Back Surgery Additional Past Surgical History / Comment(s): lumbar surgery ; pain procedures Past Anesthesia/Blood Transfusion Reactions: No Reported Reaction Past Psychological History: No Psychological Hx Reported Smoking Status: Current every day smoker Past Alcohol Use History: None Reported Additional Past Alcohol Use History / Comment(s): states smoked half a pack per day Past Drug Use History: None Reported - Past Family History Mother Family Medical History: No Reported History Medications and Allergies Home Medications Medication Instructions Recorded Confirmed Type Simvastatin 80 mg PO HS 08/14/18 12/11/19 History Lisinopril-Hctz 20-25 mg 1 tab PO DAILY 09/05/18 12/11/19 History [Zestoretic 20-25] tiZANidine [Zanaflex] 4 mg PO BID 09/23/18 12/11/19 History Omeprazole 40 mg PO DAILY 03/14/19 12/11/19 History metFORMIN HCL 1,000 mg PO BID 03/14/19 12/11/19 History Loratadine [Claritin] 10 mg PO DAILY 05/15/19 12/11/19 History Ibuprofen [Motrin] 800 mg PO TID PRN 12/11/19 12/11/19 History Lidocaine 4% Cream [Lmx 4] 1 applic TOPICAL BID PRN 12/11/19 12/11/19 History glipiZIDE [Glucotrol] 5 mg PO BID 12/11/19 12/11/19 History Allergies Allergy/AdvReac Type Severity Reaction Status Date / Time codeine Allergy Nausea Verified 12/11/19 21:25 bupropion [From Wellbutrin] AdvReac Nausea & Verified 12/11/19 21:25 Vomiting gabapentin AdvReac Nausea & Verified 12/11/19 21:25 Vomiting/dizzyness pregabalin AdvReac Nausea & Verified 12/11/19 21:25 Vomiting tramadol AdvReac Nausea & Verified 12/11/19 21:25 Vomiting Physical Exam Vitals: Vital Signs Temp Pulse Pulse Resp BP BP Pulse Ox 12/12/19 07:20 99.6 F 101 H 18 126/85 92 L 12/12/19 04:00 98.3 F 89 20 125/73 94 L 12/12/19 00:00 98.7 F 95 20 90/60 96 12/11/19 20:30 71 18 106/69 95 12/11/19 20:00 98.9 F 73 90 20 114/72 104/66 95 12/11/19 19:59 98.3 F 74 20 92/70 97 12/11/19 19:00 83 18 99/63 96 12/11/19 18:45 83 19 104/78 95 12/11/19 18:30 83 22 108/64 95 12/11/19 18:15 79 17 100/64 94 L 12/11/19 18:00 82 18 86/59 95 12/11/19 17:45 82 16 94/61 95 12/11/19 17:30 84 17 102/62 96 12/11/19 17:15 90 19 89/71 97 12/11/19 17:00 86 18 89/71 97 12/11/19 16:30 89 17 90/48 97 12/11/19 16:15 91 17 76/54 97 12/11/19 16:00 98 14 90/60 98 12/11/19 15:38 98.9 F 101 H 18 92/58 97 Intake and Output 12/11/19 12/12/19 12/12/19 22:59 06:59 14:59 Intake Total 1190 Balance 1190 Intake: Intake, IV Titration 950 Amount Magnesium Sulfate-D5w Pmx 200 1 gm In Dextrose/Water 1 100ml.bag @ 100 mls/hr IVPB Q1H [facility] Rx#: [id number] Sodium Chloride 0.9% 1, 750 000 ml @ 150 mls/hr IV . Q6H40M [facility] Rx#:[id number] Oral 240 Other: Voiding Method Toilet # Voids 400 Weight 111.584 kg 121 kg PHYSICAL EXAMINATION: GENERAL: 59-year-old gentleman in no acute distress at the time of my examination HEENT: Head is atraumatic, normocephalic. Pupils equal, round. Sclera anicteric. Conjunctiva are clear. Mucous membranes of the mouth are moist. Neck is supple. There is no elevated jugular venous pressure. No carotid bruit is heard. HEART EXAMINATION: Heart S1, S2 normal. No murmur or gallop heard. CHEST EXAMINATION: Lungs reveal decreased air exchange throughout, expiratory wheezes, ABDOMEN: Soft, obese, nontender. Bowel sounds are heard. No organomegaly noted. EXTREMITIES: 2+ peripheral pulses with evidence of peripheral edema and no calf tenderness noted. NEUROLOGIC patient is awake, alert and oriented 3 . . Results 12/11/19 15:55 12/11/19 15:55 Cardiac Enzymes 12/11/19 12/11/19 12/11/19 Range/Units 15:55 15:55 21:14 AST 105 H (17-59) U/L Troponin I 0.048 H* 0.038 H* (0.000-0.034) ng/mL 12/12/19 Range/Units 03:49 AST (17-59) U/L Troponin I 0.194 H* (0.000-0.034) ng/mL Coagulation 12/11/19 Range/Units 15:55 PT 11.2 (9.0-12.0) sec APTT 26.6 (22.0-30.0) sec Lipids 12/12/19 Range/Units 03:49 Triglycerides 307 H (<150) mg/dL Cholesterol 114 (<200) mg/dL HDL Cholesterol 24 L (40-60) mg/dL CBC 12/11/19 Range/Units 15:55 WBC 12.8 H (3.8-10.6) k/uL RBC 4.90 (4.30-5.90) m/uL Hgb 14.6 (13.0-17.5) gm/dL Hct 42.8 (39.0-53.0) % Plt Count 237 (150-450) k/uL Comprehensive Metabolic Panel 12/11/19 Range/Units 15:55 Sodium 126 L (137-145) mmol/L Potassium 4.0 (3.5-5.1) mmol/L Chloride 91 L (98-107) mmol/L Carbon Dioxide 21 L (22-30) mmol/L BUN 25 H (9-20) mg/dL Creatinine 1.62 H (0.66-1.25) mg/dL Glucose 252 H (74-99) mg/dL Calcium 8.6 (8.4-10.2) mg/dL AST 105 H (17-59) U/L ALT 170 H (4-49) U/L Alkaline Phosphatase 231 H (38-126) U/L Total Protein 6.8 (6.3-8.2) g/dL Albumin 3.9 (3.5-5.0) g/dL Current Medications Generic Name Dose Route Start Last Admin Trade Name Freq PRN Reason Stop Dose Admin Aspirin 325 mg 12/12/19 09:00 Aspirin PO DAILY [facility] Sodium Chloride 1,000 mls @ 150 mls/hr 12/11/19 19:45 12/12/19 03:40 Saline 0.9% IV Not Given .Q6H40M [facility] Insulin Aspart 0 unit 12/12/19 07:30 Novolog SQ ACHS [facility] Protocol Nitroglycerin 0.4 mg 12/11/19 19:29 Nitrostat SUBLINGUAL Q5M PRN Chest Pain Nitroglycerin 1 inch 12/12/19 00:00 12/12/19 03:46 Nitro-Bid Oint TOPICAL Not Given Q6HR [facility] Intake and Output 12/11/19 12/12/19 12/12/19 22:59 06:59 14:59 Intake Total 1190 Balance 1190 Intake: Intake, IV Titration 950 Amount Magnesium Sulfate-D5w Pmx 200 1 gm In Dextrose/Water 1 100ml.bag @ 100 mls/hr IVPB Q1H [facility] Rx#: [id number] Sodium Chloride 0.9% 1, 750 000 ml @ 150 mls/hr IV . Q6H40M [facility] Rx#:[id number] Oral 240 Other: Voiding Method Toilet # Voids 400 Weight 111.584 kg 121 kg 12/11/19 15:55 12/11/19 15:55 EKG Interpretations (text) EKG shows a normal sinus rhythm with a right bundle branch block pattern. Assessment and Plan Plan: Assessment and plan #1 symptoms of abdominal discomfort with associated diaphoresis, fever, shortness of breath. Elevated lactic acid, suggestive of sepsis Influenza A and B-. CTA of the chest negative for pulmonary embolism. No evidence of congestive cardiac failure. #2 chest pain with associated diaphoresis, EKG shows a normal sinus rhythm with a right bundle branch block pattern. Troponins 0.04, 0.03, 0.194. #3 moderate to severe COPD #4 nicotine dependence, patient used to smoke 3 packs of cigarettes per day, down to half a pack of cigarettes per day #5 hyponatremia #6 acute on chronic renal insufficiency #7 hypertension #8 diabetes #9 hyperlipidemia #10 elevated liver enzymes #11 hypomagnesemia Plan We will replace the patient's magnesium, obtain an echocardiogram with Doppler study. Patient will need a further evaluation to rule out underlying coronary artery disease, once his sepsis has stabilized. Further recommendations to follow. DNP note has been reviewed, I agree with a documented findings and plan of care. Patient was seen and examined.
[2019-12-12] MEDS ORDERED: ASPIRIN 325 MG TAB PO SCH (09:00)
[2019-12-12] MEDS: INSULIN ASPART (NovoLOG) 100 UNIT/ML VIAL SQ SCH ×4 (09:21→22:11)
[2019-12-12] MEDS: ASPIRIN 81 MG PO SCH (09:21)
--- NOTE | 2019-12-12 10:34 | ECHOF ---
Referral Reason:chest pain MEASUREMENTS -------- HEIGHT: 182.9 cm WEIGHT: 120.7 kg BP: IVSd: 1.0 cm (0.6 - 1.1) LVIDd: 2.5 cm (3.9 - 5.3) LVPWd: 0.9 cm (0.6 - 1.1) IVSs: 1.1 cm LVIDs: 1.6 cm LVPWs: 1.9 cm MV EXCURSION: 19.523 mm (> 18.000) MV EF SLOPE: 135 mm/s (70 - 150) EPSS: 2.7 cm MV E Garret: 0.80 m/s MV DecT: 174 ms MV A Garret: 0.86 m/s MV E/A Ratio: 0.93 RAP: 5.00 mmHg RVSP: 7.09 mmHg FINDINGS -------- Sinus rhythm. This was a technically difficult study with suboptimal views. The left ventricular size is normal. Left ventricular wall thickness is normal. Overall left vent ricular systolic function is low-normal with, an EF between 50 - 55 %. The RV was not well visualized. The left atrium was not well visualized. The right atrium was not well visualized. Lumason used The aortic valve was not well visualized. The mitral valve was not well visualized. The tricuspid valve was not well visualized. The pulmonic valve was not well visualized. CONCLUSIONS -------- 1. Sinus rhythm. 2. This was a technically difficult study with suboptimal views. 3. The left ventricular size is normal. 4. Left ventricular wall thickness is normal. 5. Overall left ventricular systolic function is low-normal with, an EF between 50 - 55 %. 6. The RV was not well visualized. 7. The left atrium was not well visualized. 8. The right atrium was not well visualized. 9. Lumason used 10. The aortic valve was not well visualized. 11. The mitral valve was not well visualized. 12. The tricuspid valve was not well visualized. 13. The pulmonic valve was not well visualized. [employer]PLANE CAPTAIN: Mera Ellis, [facility]
[2019-12-12 12:06] LABS: Glucose,Whole Blood 153 mg/dL (75-99)
[2019-12-12 12:52] LABS: Basophils # (A) 0.2 k/uL (0-0.2); Basophils % (A) 2 %; Eosinophils # (A) 0.1 k/uL (0-0.7); Eosinophils % (A) 1 %; HGB 13.8 gm/dL (13.0-17.5); Lymphocytes # (A) 0.8 k/uL (1.0-4.8); Lymphocytes % (A) 9 %; MCH 30.7 pg (25.0-35.0); MCHC 34.5 g/dL (31.0-37.0); Monocytes # (A) 0.5 k/uL (0-1.0); Monocytes % (A) 5 %; Neutrophils # (A) 7.7 k/uL (1.3-7.7); Neutrophils % (A) 81 %; Platelet Count 226 k/uL (150-450); RDW 12.4 % (11.5-15.5); WBC 9.5 k/uL (3.8-10.6)
[2019-12-12 12:54] LABS: African American GFR (CKD) >90 (>60 ml/min/1.73 sqM); Anion Gap 9 mmol/L; Blood Urea Nitrogen 16 mg/dL (9-20); Calcium 8.2 mg/dL (8.4-10.2); Carbon Dioxide 28 mmol/L (22-30); Chloride 91 mmol/L (98-107); Glucose 143 mg/dL (74-99); Non-African American GFR(CKD) 85 (>60 ml/min/1.73 sqM); Potassium 3.5 mmol/L (3.5-5.1); Sodium 128 mmol/L (137-145)
[2019-12-12 13:16] LABS: C Reactive Protein 208.5 mg/L (<10.0)
[2019-12-12 16:46] LABS: Glucose,Whole Blood 191 mg/dL (75-99)
[2019-12-12 20:28] LABS: Glucose,Whole Blood 236 mg/dL (75-99)
[2019-12-12] MEDS: IPRATROPIUM-ALBUTEROL 3 ML NEB INHALATION SCH (21:09)
[2019-12-12] MEDS: AZITHROMYCIN 500 MG in SODIUM CHLORIDE 0.9% 250 ML IVPB SCH (22:02)
[2019-12-13] MEDS: NITROGLYCERIN OINT 1 INCH/GM PACKET TOPICAL SCH ×4 (00:20→17:23)
[2019-12-13] MEDS: SODIUM CHLORIDE 0.9% 1,000 ML IV SCH ×5 (04:57→20:36)
[2019-12-13 06:13] LABS: Glucose,Whole Blood 224 mg/dL (75-99)
[2019-12-13 06:44] LABS: Basophils # (A) 0.1 k/uL (0-0.2); Basophils % (A) 1 %; Eosinophils # (A) 0.2 k/uL (0-0.7); Eosinophils % (A) 3 %; HCT 37.7 % (39.0-53.0); HGB 12.5 gm/dL (13.0-17.5); Lymphocytes # (A) 1.3 k/uL (1.0-4.8); Lymphocytes % (A) 14 %; MCH 29.7 pg (25.0-35.0); MCHC 33.2 g/dL (31.0-37.0); MCV 89.4 fL (80.0-100.0); Mean Platelet Volume 8.1; Monocytes # (A) 0.6 k/uL (0-1.0); Monocytes % (A) 7 %; Neutrophils # (A) 6.4 k/uL (1.3-7.7); Neutrophils % (A) 72 %; Platelet Count 242 k/uL (150-450); RBC 4.21 m/uL (4.30-5.90); RDW 12.4 % (11.5-15.5); WBC 8.9 k/uL (3.8-10.6)
[2019-12-13] MEDS: INSULIN ASPART (NovoLOG) 100 UNIT/ML VIAL SQ SCH ×4 (06:52→21:16)
[2019-12-13 07:01] LABS: African American GFR (CKD) >90 (>60 ml/min/1.73 sqM); Anion Gap 10 mmol/L; Blood Urea Nitrogen 12 mg/dL (9-20); Calcium 7.9 mg/dL (8.4-10.2); Carbon Dioxide 26 mmol/L (22-30); Chloride 95 mmol/L (98-107); Glucose 199 mg/dL (74-99); Non-African American GFR(CKD) >90 (>60 ml/min/1.73 sqM); Potassium 3.9 mmol/L (3.5-5.1); Sodium 131 mmol/L (137-145)
[2019-12-13] MEDS: ASPIRIN 81 MG PO SCH (08:14)
[2019-12-13] MEDS: IPRATROPIUM-ALBUTEROL 3 ML NEB INHALATION SCH ×4 (09:16→20:45)
--- NOTE | 2019-12-13 10:08 | P.HPIM ---
History of Present Illness H&P Date: 12/12/19 Chief Complaint: Abdominal pain, chest pain, diaphoresis 59-year-old gentleman with known history of COPD, diabetes, hypertension, hyperlipidemia, nicotine dependence, patient used to smoke 3 packs of cigarettes a day he states he is down to approximately a half a pack of cigarettes per day at this time. He states that on Sunday, he developed a spasm type pain on both sides of his abdomen which she states was severe. Subsequent to that he developed some pain in the left side of his chest, became extremely diaphoretic, he had no appetite but was drinking water profusely according to him. Because of the symptoms patient came to the emergency room for further evaluation and treatment. Patient does state that he had a temperature at home of 103. His chest x-ray on presentation here did not show any acute process. CAT scan of the abdomen and pelvis did not reveal any acute process, it did show a right adrenal 3 cm nodule for which a three-month follow-up is recommended. CTA of the chest was performed because of an elevated d-dimer, it was negative for pulmonary embolism, no acute pulmonary/pleural process. Coronary arterial calcifications and aortic valve calcifications are noted. EKG showed a normal sinus rhythm with an incomplete right bundle branch block pattern. His blood pressure on arrival here 92/58 with a heart rate of 100, 97% on room air. Temperature 98.9 at that time. This morning's blood pressure is 126/80, heart rate in the 100s, 92% on 5 L of oxygen, temperature 99.6. White blood cell count 12.8, hemoglobin 14.6, platelet count 237, d-dimer 1.5, sodium 126, potassium 4.0, BUN 25, creatinine 1.6. Magnesium 1.1, AST 105, ALT 170, alk phos 231, troponin 0.048, 0.038, 0.194. Influenza A and B were negative. Cholesterol 114, triglycerides 307, LDL 29, HDL 24. At the time of my examination this morning, the patient continues to be quite diaphoretic, he continues to have a nonproductive wheezy cough, denies any chest discomfort this morning, but is quite short of breath. Review of Systems CONSTITUTIONAL: No fever, no malaise, no fatigue. HEENT: No recent visual problems or hearing problems. Denied any sore throat. CARDIOVASCULAR: No chest pain, orthopnea, PND, no palpitations, no syncope. PULMONARY: No shortness of breath, no cough, no hemoptysis. GASTROINTESTINAL: No diarrhea, no nausea, no vomiting, no abdominal pain. NEUROLOGICAL: No headaches, no weakness, no numbness. HEMATOLOGICAL: Denies any bleeding or petechiae. GENITOURINARY: Denies any burning micturition, frequency, or urgency. MUSCULOSKELETAL/RHEUMATOLOGICAL: Denies any joint pain, swelling, or any muscle pain. ENDOCRINE: Denies any polyuria or polydipsia. The rest of the 14-point review of systems is negative. Past Medical History Past Medical History: COPD, Diabetes Mellitus, GERD/Reflux, Hyperlipidemia, Hypertension, Sleep Apnea/CPAP/BIPAP Additional Past Medical History / Comment(s): cpap with O2 , Chronic back pain, hx of jaw fx 1979 History of Any Multi-Drug Resistant Organisms: None Reported Past Surgical History: Back Surgery Additional Past Surgical History / Comment(s): lumbar surgery ; pain procedures Past Anesthesia/Blood Transfusion Reactions: No Reported Reaction Past Psychological History: No Psychological Hx Reported Smoking Status: Current every day smoker Past Alcohol Use History: None Reported Additional Past Alcohol Use History / Comment(s): states smoked half a pack per day Past Drug Use History: None Reported - Past Family History Mother Family Medical History: No Reported History Medications and Allergies Home Medications Medication Instructions Recorded Confirmed Type Simvastatin 80 mg PO HS 08/14/18 12/11/19 History Lisinopril-Hctz 20-25 mg 1 tab PO DAILY 09/05/18 12/11/19 History [Zestoretic 20-25] tiZANidine [Zanaflex] 4 mg PO BID 09/23/18 12/11/19 History Omeprazole 40 mg PO DAILY 03/14/19 12/11/19 History metFORMIN HCL 1,000 mg PO BID 03/14/19 12/11/19 History Loratadine [Claritin] 10 mg PO DAILY 05/15/19 12/11/19 History Ibuprofen [Motrin] 800 mg PO TID PRN 12/11/19 12/11/19 History Lidocaine 4% Cream [Lmx 4] 1 applic TOPICAL BID PRN 12/11/19 12/11/19 History glipiZIDE [Glucotrol] 5 mg PO BID 12/11/19 12/11/19 History Allergies Allergy/AdvReac Type Severity Reaction Status Date / Time codeine Allergy Nausea Verified 12/11/19 21:25 bupropion [From Wellbutrin] AdvReac Nausea & Verified 12/11/19 21:25 Vomiting gabapentin AdvReac Nausea & Verified 12/11/19 21:25 Vomiting/dizzyness pregabalin AdvReac Nausea & Verified 12/11/19 21:25 Vomiting tramadol AdvReac Nausea & Verified 12/11/19 21:25 Vomiting Physical Exam Vitals: Vital Signs Temp Pulse Pulse Resp BP BP Pulse Ox 12/12/19 07:45 101 H 18 12/12/19 07:20 99.6 F 101 H 18 126/85 92 L 12/12/19 04:00 98.3 F 89 20 125/73 94 L 12/12/19 00:00 98.7 F 95 20 90/60 96 12/11/19 20:30 71 18 106/69 95 12/11/19 20:00 98.9 F 73 90 20 114/72 104/66 95 12/11/19 19:59 98.3 F 74 20 92/70 97 12/11/19 19:00 83 18 99/63 96 12/11/19 18:45 83 19 104/78 95 12/11/19 18:30 83 22 108/64 95 12/11/19 18:15 79 17 100/64 94 L 12/11/19 18:00 82 18 86/59 95 12/11/19 17:45 82 16 94/61 95 12/11/19 17:30 84 17 102/62 96 12/11/19 17:15 90 19 89/71 97 12/11/19 17:00 86 18 89/71 97 12/11/19 16:30 89 17 90/48 97 12/11/19 16:15 91 17 76/54 97 12/11/19 16:00 98 14 90/60 98 12/11/19 15:38 98.9 F 101 H 18 92/58 97 Intake and Output 12/11/19 12/12/19 12/12/19 22:59 06:59 14:59 Intake Total 1190 Balance 1190 Intake: Intake, IV Titration 950 Amount Magnesium Sulfate-D5w Pmx 200 1 gm In Dextrose/Water 1 100ml.bag @ 100 mls/hr IVPB Q1H [facility] Rx#: [id number] Sodium Chloride 0.9% 1, 750 000 ml @ 150 mls/hr IV . Q6H40M [facility] Rx#:[id number] Oral 240 Other: Voiding Method Toilet # Voids 400 Weight 111.584 kg 121 kg PHYSICAL EXAMINATION: GENERAL: The patient is alert and oriented x3, not in any acute distress. Well developed, well nourished. HEENT: Pupils are round and equally reacting to light. EOMI. No scleral icterus. No conjunctival pallor. Normocephalic, atraumatic. No pharyngeal erythema. No thyromegaly. CARDIOVASCULAR: S1 and S2 present. No murmurs, rubs, or gallops. PULMONARY: Diffuse wheezing. ABDOMEN: Soft, nontender, nondistended, normoactive bowel sounds. No palpable organomegaly. MUSCULOSKELETAL: No joint swelling or deformity. EXTREMITIES: No cyanosis, clubbing, or pedal edema. NEUROLOGICAL: Gross neurological examination did not reveal any focal deficits. SKIN: No rashes. Results CBC & Chem 7: 12/13/19 06:06 12/13/19 06:06 Labs: Abnormal Lab Results - Last 24 Hours (Table) 12/11/19 12/11/19 12/11/19 Range/Units 15:55 15:55 15:55 WBC 12.8 H (3.8-10.6) k/uL Neutrophils # 10.7 H (1.3-7.7) k/uL D-Dimer 1.52 H (<0.60) mg/L FEU Sodium 126 L (137-145) mmol/L Chloride 91 L (98-107) mmol/L Carbon Dioxide 21 L (22-30) mmol/L BUN 25 H (9-20) mg/dL Creatinine 1.62 H (0.66-1.25) mg/dL Glucose 252 H (74-99) mg/dL POC Glucose (mg/dL) (75-99) mg/dL Plasma Lactic Acid Paco (0.7-2.0) mmol/L Magnesium 1.1 L (1.6-2.3) mg/dL AST 105 H (17-59) U/L ALT 170 H (4-49) U/L Alkaline Phosphatase 231 H (38-126) U/L Troponin I (0.000-0.034) ng/mL Triglycerides (<150) mg/dL HDL Cholesterol (40-60) mg/dL 12/11/19 12/11/19 12/11/19 Range/Units 15:55 15:55 21:14 WBC (3.8-10.6) k/uL Neutrophils # (1.3-7.7) k/uL D-Dimer (<0.60) mg/L FEU Sodium (137-145) mmol/L Chloride (98-107) mmol/L Carbon Dioxide (22-30) mmol/L BUN (9-20) mg/dL Creatinine (0.66-1.25) mg/dL Glucose (74-99) mg/dL POC Glucose (mg/dL) (75-99) mg/dL Plasma Lactic Acid Paco 3.9 H* (0.7-2.0) mmol/L Magnesium (1.6-2.3) mg/dL AST (17-59) U/L ALT (4-49) U/L Alkaline Phosphatase (38-126) U/L Troponin I 0.048 H* 0.038 H* (0.000-0.034) ng/mL Triglycerides (<150) mg/dL HDL Cholesterol (40-60) mg/dL 12/12/19 12/12/19 12/12/19 Range/Units 03:49 03:49 06:02 WBC (3.8-10.6) k/uL Neutrophils # (1.3-7.7) k/uL D-Dimer (<0.60) mg/L FEU Sodium (137-145) mmol/L Chloride (98-107) mmol/L Carbon Dioxide (22-30) mmol/L BUN (9-20) mg/dL Creatinine (0.66-1.25) mg/dL Glucose (74-99) mg/dL POC Glucose (mg/dL) 256 H (75-99) mg/dL Plasma Lactic Acid Paco (0.7-2.0) mmol/L Magnesium (1.6-2.3) mg/dL AST (17-59) U/L ALT (4-49) U/L Alkaline Phosphatase (38-126) U/L Troponin I 0.194 H* (0.000-0.034) ng/mL Triglycerides 307 H (<150) mg/dL HDL Cholesterol 24 L (40-60) mg/dL Thrombosis Risk Factor Assmnt - Choose All That Apply Each Factor Represents 1 point: Abnormal pulmonary function (COPD), Age 41-60 years, Obesity (BMI >25), Serious lung disease incl. pneumonia (< 1month) Other Risk Factors: No Other congenital or acquired thrombophilia - If yes, enter type in comment: No Thrombosis Risk Factor Assessment Total Risk Factor Score: 4 Thrombosis Risk Factor Assessment Level: Moderate Risk Assessment and Plan Assessment: 1. Elevated troponin; possible non-ST elevation OR - Cardiology is following and recommending to replace electrolytes; echocardiogram is ordered; cardiology recommending further cardiac workup once sepsis is ruled out 2. Abdominal pain with elevated lactic acid level; possible sepsis - Influenza A and B is negative; CT of the abdomen and pelvis is negative for any acute infectious etiology; lactic acid has trended down from 3.9 on admission down to 1.3 this morning; patient remains afebrile; blood cultures were not drawn in ED; we'll continue to monitor patient closely 3. Acute exacerbation COPD; start patient on DuoNeb nebulizer treatments along with IV azithromycin and oral prednisone; O2 per nasal cannula keeping SpO2 greater than 90% 4. Severe purulent tracheobronchitis; DuoNeb nebulizer treatments and antibiotic therapy in form of azithromycin 5. Marked hyponatremia; patient remains on normal saline at rate of 100 mL an hour; monitor electrolytes closely and make adjustments accordingly 6. Acute on chronic kidney disease; creatinine has trended down to 0.98 from 1.62 on admission; we will continue to monitor renal function, strict RADHA's, avoid hypotension and nephrotoxins 7. Hypertension; hold off on lisinoprilHCTZ due to soft blood pressure and worsened renal function; we will restart patient on home dose once blood pressure improves 8. Hyperlipidemia; simvastatin 80 mg daily at bedtime 9. Diabetes mellitus 2; patient takes glipizide and metformin at home; we will hold off on oral hypoglycemic agents and monitor Accu-Cheks before meals and at bedtime with insulin sliding scale DVT prophylaxis; SCDs CODE STATUS; full code Time with Patient: Greater than 30
--- NOTE | 2019-12-13 10:35 | P.PN ---
Subjective Progress Note Date: 12/13/19 This is a 59-year-old gentleman with known history of COPD, diabetes, hypertension, hyperlipidemia, nicotine dependence, patient used to smoke 3 packs of cigarettes a day he states he is down to approximately a half a pack of cigarettes per day at this time. He states that on Sunday, he developed a spasm type pain on both sides of his abdomen which she states was severe. Subsequent to that he developed some pain in the left side of his chest, became extremely diaphoretic, he had no appetite but was drinking water profusely according to him. Because of the symptoms patient came to the emergency room for further evaluation and treatment. Patient does state that he had a temperature at home of 103. His chest x-ray on presentation here did not show any acute process. CAT scan of the abdomen and pelvis did not reveal any acute process, it did show a right adrenal 3 cm nodule for which a three-month follow-up is recommended. CTA of the chest was performed because of an elevated d-dimer, it was negative for pulmonary embolism, no acute pulmonary/pleural process. Coronary arterial calcifications and aortic valve calcifications are noted. EKG showed a normal sinus rhythm with an incomplete right bundle branch block pattern. His blood pressure on arrival here 92/58 with a heart rate of 100, 97% on room air. Temperature 98.9 at that time. This morning's blood pressure is 126/80, heart rate in the 100s, 92% on 5 L of oxygen, temperature 99.6. White blood cell count 12.8, hemoglobin 14.6, platelet count 237, d-dimer 1.5, sodium 126, potassium 4.0, BUN 25, creatinine 1.6. Magnesium 1.1, AST 105, ALT 170, alk phos 231, troponin 0.048, 0.038, 0.194. Influenza A and B were negative. Cholesterol 114, triglycerides 307, LDL 29, HDL 24. At the time of my examination this morning, the patient continues to be quite diaphoretic, he continues to have a nonproductive wheezy cough, denies any chest discomfort this morning, but is quite short of breath. 12/13: The patient denies any chest pain, shortness of breath is significantly improved. Patient in general states he is feeling much improved. He denies having any fever or chills. Echocardiogram to was a poor difficult study but EF was 50-55%. CRP 208, pro calcitonin 1.8. Patient is been afebrile, heart rate 70, blood pressure 107/69, pulse ox 95% on 2 L. WBC 8.9, hemoglobin 12.5, platelet count 242. Sodium 131, potassium 3.9, chloride 95, CO2 26, BUN 12 and creatinine 0.85. Objective - Vital Signs Vital signs: Vital Signs Temp 98.0 F 12/13/19 04:00 Pulse 78 12/13/19 09:25 Resp 16 12/13/19 08:00 BP 107/69 12/13/19 08:00 Pulse Ox 95 12/13/19 08:00 Intake & Output 12/12/19 12/13/19 12/13/19 18:59 06:59 18:59 Intake Total 180 960 420 Output Total 300 Balance -120 960 420 Weight 121.9 kg Intake: Oral 180 960 420 Output: Urine 300 Other: Voiding Method Toilet Toilet # Voids 2 # Bowel Movements 1 - Exam PHYSICAL EXAMINATION: GENERAL: 59-year-old gentleman in no acute distress at the time of my examination HEENT: Head is atraumatic, normocephalic. Pupils equal, round. Sclera anicteric. Conjunctiva are clear. Mucous membranes of the mouth are moist. Neck is supple. There is no elevated jugular venous pressure. No carotid bruit is heard. HEART EXAMINATION: Heart S1, S2 normal. No murmur or gallop heard. CHEST EXAMINATION: Lungs reveal decreased air exchange throughout, expiratory wheezes, ABDOMEN: Soft, obese, nontender. Bowel sounds are heard. No organomegaly noted. EXTREMITIES: 2+ peripheral pulses with no evidence of peripheral edema and no calf tenderness noted. NEUROLOGIC patient is awake, alert and oriented 3 . - Labs CBC & Chem 7: 12/13/19 06:06 12/13/19 06:06 Labs: Abnormal Lab Results - Last 24 Hours (Table) 12/12/19 12/12/19 12/12/19 Range/Units 12:05 12:11 12:11 RBC (4.30-5.90) m/uL Hgb (13.0-17.5) gm/dL Hct (39.0-53.0) % Lymphocytes # 0.8 L (1.0-4.8) k/uL Sodium 128 L (137-145) mmol/L Chloride 91 L (98-107) mmol/L Glucose 143 H (74-99) mg/dL POC Glucose (mg/dL) 153 H (75-99) mg/dL Calcium 8.2 L (8.4-10.2) mg/dL C-Reactive Protein 208.5 H (<10.0) mg/L Procalcitonin (0.02-0.09) ng/mL 12/12/19 12/12/19 12/12/19 Range/Units 12:11 16:45 20:27 RBC (4.30-5.90) m/uL Hgb (13.0-17.5) gm/dL Hct (39.0-53.0) % Lymphocytes # (1.0-4.8) k/uL Sodium (137-145) mmol/L Chloride (98-107) mmol/L Glucose (74-99) mg/dL POC Glucose (mg/dL) 191 H 236 H (75-99) mg/dL Calcium (8.4-10.2) mg/dL C-Reactive Protein (<10.0) mg/L Procalcitonin 1.83 H (0.02-0.09) ng/mL 12/13/19 12/13/19 12/13/19 Range/Units 06:06 06:06 06:07 RBC 4.21 L (4.30-5.90) m/uL Hgb 12.5 L (13.0-17.5) gm/dL Hct 37.7 L (39.0-53.0) % Lymphocytes # (1.0-4.8) k/uL Sodium 131 L (137-145) mmol/L Chloride 95 L (98-107) mmol/L Glucose 199 H (74-99) mg/dL POC Glucose (mg/dL) 224 H (75-99) mg/dL Calcium 7.9 L (8.4-10.2) mg/dL C-Reactive Protein (<10.0) mg/L Procalcitonin (0.02-0.09) ng/mL Assessment and Plan Plan: #1 symptoms of abdominal discomfort with associated diaphoresis, fever, shortness of breath. Elevated lactic acid and C-reactive protein, suggestive of sepsis, Influenza A and B negative. CTA of the chest negative for pulmonary embolism. No evidence of congestive cardiac failure. #2 chest pain with associated diaphoresis, EKG shows a normal sinus rhythm with a right bundle branch block pattern. Troponins 0.04, 0.03, 0.194. #3 moderate to severe COPD #4 nicotine dependence, patient used to smoke 3 packs of cigarettes per day, down to half a pack of cigarettes per day #5 hyponatremia #6 acute on chronic renal insufficiency #7 hypertension #8 diabetes #9 hyperlipidemia #10 elevated liver enzymes #11 hypomagnesemia Plan Echocardiogram revealed EF of 50-55% but was a technically difficult study. Patient will need a further evaluation to rule out underlying coronary artery disease, once his sepsis has stabilized. Further recommendations to follow. Nurse practitioner note has been reviewed, I agree with documented findings and plan of care. Patient was seen and examined.
[2019-12-13 12:08] LABS: Glucose,Whole Blood 266 mg/dL (75-99)
[2019-12-13] MEDS: predniSONE 20 MG TAB PO SCH ×3 (12:14→22:22)
[2019-12-13 16:56] LABS: Glucose,Whole Blood 326 mg/dL (75-99)
[2019-12-13] MEDS: AZITHROMYCIN 500 MG in SODIUM CHLORIDE 0.9% 250 ML IVPB SCH (20:39)
[2019-12-13 21:04] LABS: Glucose,Whole Blood 296 mg/dL (75-99)
[2019-12-14] MEDS: SODIUM CHLORIDE 0.9% 1,000 ML IV SCH (01:38)
[2019-12-14 04:14] VITALS: TEMP 98
[2019-12-14] MEDS: NITROGLYCERIN OINT 1 INCH/GM PACKET TOPICAL SCH ×2 (05:12→12:16)
[2019-12-14 05:33] LABS: Glucose,Whole Blood 321 mg/dL (75-99)
[2019-12-14] MEDS: INSULIN ASPART (NovoLOG) 100 UNIT/ML VIAL SQ SCH ×3 (06:22→17:21)
[2019-12-14 06:55] LABS: Basophils % (A) 0 %; Eosinophils % (A) 0 %; HCT 38.1 % (39.0-53.0); HGB 12.6 gm/dL (13.0-17.5); Lymphocytes # (A) 1.1 k/uL (1.0-4.8); Lymphocytes % (A) 13 %; MCH 29.5 pg (25.0-35.0); MCV 89.3 fL (80.0-100.0); Mean Platelet Volume 8.1; Monocytes # (A) 0.4 k/uL (0-1.0); Monocytes % (A) 5 %; Neutrophils # (A) 6.9 k/uL (1.3-7.7); Neutrophils % (A) 81 %; Platelet Count 273 k/uL (150-450); RBC 4.26 m/uL (4.30-5.90); RDW 12.4 % (11.5-15.5); WBC 8.6 k/uL (3.8-10.6)
[2019-12-14 07:05] LABS: African American GFR (CKD) >90 (>60 ml/min/1.73 sqM); Anion Gap 9 mmol/L; Blood Urea Nitrogen 14 mg/dL (9-20); Calcium 7.8 mg/dL (8.4-10.2); Carbon Dioxide 25 mmol/L (22-30); Chloride 95 mmol/L (98-107); Glucose 311 mg/dL (74-99); Non-African American GFR(CKD) >90 (>60 ml/min/1.73 sqM); Potassium 4.3 mmol/L (3.5-5.1); Sodium 129 mmol/L (137-145)
[2019-12-14] MEDS: IPRATROPIUM-ALBUTEROL 3 ML NEB INHALATION SCH ×3 (07:30→16:19)
[2019-12-14] MEDS: predniSONE 20 MG TAB PO SCH ×2 (08:22→17:20)
[2019-12-14] MEDS: ASPIRIN 81 MG PO SCH (08:22)
[2019-12-14 08:24] VITALS: RESP 16
--- NOTE | 2019-12-14 10:04 | P.PN ---
Subjective Progress Note Date: 12/13/19 Principal diagnosis: Elevated troponin; possible non-ST elevation MT Acute exacerbation COPD Severe. Tracheobronchitis Marked hyponatremia Acute on chronic kidney disease 59-year-old male patient with history of COPD, diabetes, hypertension, hyperlipidemia who presented to ED with complaint of worsening shortness of breath and abdominal pain; workup in ED with CT of the chest was negative for PE, computed tomography scan of abdomen and pelvis did not reveal any acute process; influenza A and B were negative; patient is admitted to the hospital for further evaluation by cardiology and treatment of COPD exacerbation 12/13/2019 The patient denies any chest pain, shortness of breath is significantly improved. Patient in general states he is feeling much improved. He denies having any fever or chills. Echocardiogram to was a poor difficult study but EF was 50-55%. CRP 208, pro calcitonin 1.8. Patient is been afebrile, heart rate 70, blood pressure 107/69, pulse ox 95% on 2 L. WBC 8.9, hemoglobin 12.5, platelet count 242. Sodium 131, potassium 3.9, chloride 95, CO2 26, BUN 12 and creatinine 0.85. we will switch patient to oral steroids and continue with DuoNeb nebulizer treatment and empiric antibiotic therapy; cardiology recommending further ischemic workup once pulmonary status is stabilized; we will continue with IV fluids in form of normal saline at a rate of 75 mL an hour and continue to monitor electrolytes Objective - Vital Signs Vital signs: Vital Signs Temp 98.0 F 12/13/19 04:00 Pulse 82 12/13/19 12:00 Resp 16 12/13/19 12:00 BP 111/69 12/13/19 12:00 Pulse Ox 97 12/13/19 12:00 Intake & Output 12/12/19 12/13/19 12/13/19 18:59 06:59 18:59 Intake Total 180 960 420 Output Total 300 Balance -120 960 420 Weight 121.9 kg Intake: Oral 180 960 420 Output: Urine 300 Other: Voiding Method Toilet Toilet # Voids 2 # Bowel Movements 1 - Exam GENERAL: The patient is alert and oriented x3, not in any acute distress. Well developed, well nourished. HEENT: Pupils are round and equally reacting to light. EOMI. No scleral icterus. No conjunctival pallor. Normocephalic, atraumatic. No pharyngeal erythema. No thyromegaly. CARDIOVASCULAR: S1 and S2 present. No murmurs, rubs, or gallops. PULMONARY: Diffuse wheezing. ABDOMEN: Soft, nontender, nondistended, normoactive bowel sounds. No palpable organomegaly. MUSCULOSKELETAL: No joint swelling or deformity. EXTREMITIES: No cyanosis, clubbing, or pedal edema. - Labs CBC & Chem 7: 12/14/19 06:18 12/14/19 06:18 Labs: Abnormal Lab Results - Last 24 Hours (Table) 12/12/19 12/12/19 12/12/19 Range/Units 12:11 16:45 20:27 RBC (4.30-5.90) m/uL Hgb (13.0-17.5) gm/dL Hct (39.0-53.0) % Sodium (137-145) mmol/L Chloride (98-107) mmol/L Glucose (74-99) mg/dL POC Glucose (mg/dL) 191 H 236 H (75-99) mg/dL Calcium (8.4-10.2) mg/dL Procalcitonin 1.83 H (0.02-0.09) ng/mL 12/13/19 12/13/19 12/13/19 Range/Units 06:06 06:06 06:06 RBC 4.21 L (4.30-5.90) m/uL Hgb 12.5 L (13.0-17.5) gm/dL Hct 37.7 L (39.0-53.0) % Sodium 131 L (137-145) mmol/L Chloride 95 L (98-107) mmol/L Glucose 199 H (74-99) mg/dL POC Glucose (mg/dL) (75-99) mg/dL Calcium 7.9 L (8.4-10.2) mg/dL Procalcitonin 1.28 H (0.02-0.09) ng/mL 12/13/19 12/13/19 Range/Units 06:07 12:06 RBC (4.30-5.90) m/uL Hgb (13.0-17.5) gm/dL Hct (39.0-53.0) % Sodium (137-145) mmol/L Chloride (98-107) mmol/L Glucose (74-99) mg/dL POC Glucose (mg/dL) 224 H 266 H (75-99) mg/dL Calcium (8.4-10.2) mg/dL Procalcitonin (0.02-0.09) ng/mL Assessment and Plan Assessment: 1. Elevated troponin; possible non-ST elevation MT - Cardiology is following and recommending to replace electrolytes; echocardiogram is ordered; cardiology recommending further cardiac workup once sepsis is ruled out 2. Abdominal pain with elevated lactic acid level; possible sepsis - Influenza A and B is negative; CT of the abdomen and pelvis is negative for any acute infectious etiology; lactic acid has trended down from 3.9 on adm ission down to 1.3 this morning; patient remains afebrile; blood cultures were not drawn in ED; we'll continue to monitor patient closely 3. Acute exacerbation COPD; start patient on DuoNeb nebulizer treatments along with IV azithromycin and oral prednisone; O2 per nasal cannula keeping SpO2 greater than 90% 4. Severe purulent tracheobronchitis; DuoNeb nebulizer treatments and antibiotic therapy in form of azithromycin 5. Marked hyponatremia; patient remains on normal saline at rate of 100 mL an hour; monitor electrolytes closely and make adjustments accordingly 6. Acute on chronic kidney disease; creatinine has trended down to 0.98 from 1.62 on admission; we will continue to monitor renal function, strict RADHA's, avoid hypotension and nephrotoxins 7. Hypertension; hold off on lisinoprilHCTZ due to soft blood pressure and worsened renal function; we will restart patient on home dose once blood pressure improves 8. Hyperlipidemia; simvastatin 80 mg daily at bedtime 9. Diabetes mellitus 2; patient takes glipizide and metformin at home; we will hold off on oral hypoglycemic agents and monitor Accu-Cheks before meals and at bedtime with insulin sliding scale DVT prophylaxis; SCDs CODE STATUS; full code
[2019-12-14 12:05] LABS: Glucose,Whole Blood 346 mg/dL (75-99)
[2019-12-14 14:18] VITALS: BP 117/68; PULSE 72
[2019-12-14 16:46] LABS: Glucose,Whole Blood 218 mg/dL (75-99)
[2019-12-14] MEDS ORDERED: BUDESONIDE 0.5 MG/2 ML NEBU INHALATION SCH (20:00)
[2019-12-14] MEDS ORDERED: INSULIN DETEMIR (LEVEMIR) 100 UNIT/ML SYR SQ SCH (21:00)
--- NOTE | 2019-12-14 22:49 | PN ---
PROGRESS NOTE Aldo is a 59-year-old gentleman who was admitted to the hospital with COPD exacerbation. There was no significant troponin elevation. He has COPD exacerbation that has improved. An echocardiogram on this admission revealed an ejection fraction of 50%. This morning, he is doing well. On exam heart rate is 74 beats and blood pressure is 120/77, respirations 16, O2 sat is 94%. Chest exam reveals good air entry bilaterally. The rhonchi that we heard yesterday have improved. Heart exam reveals first and second heart sounds. No gallop. Exam of extremities did not reveal any edema. Peripheral pulses are felt. Labs show a hemoglobin of 12.6, potassium is 4.3. Creatinine is 0.67. EKG shows sinus rhythm with incomplete right bundle branch block. ASSESSMENT: 1. Chronic obstructive pulmonary disease exacerbation. 2. Chest pain. 3. Hypertension. 4. Dyslipidemia. PLAN: Patient is doing well. He can be discharged home and have outpatient followup through my office. He will need a stress test to evaluate for ischemia. MMODL / IJN: [id number] /
== END 2019-12-14 17:53 | disposition home or self-care (01) | DRG 191 ==
LOC: EC 15:36 → 3SCARD 19:29
PROVIDERS: ADMIT Internal Medicine; ATTEND Internal Medicine
DX: J44.1 Chronic obstructive pulmonary disease with (acute) exacerbation (principal); E87.1 Hypo-osmolality and hyponatremia; E87.2 Acidosis; E11.22 Type 2 diabetes mellitus with diabetic chronic kidney disease; I12.9 Hypertensive chronic kidney disease with stage 1 through stage 4 chronic kidney disease, or unspecified chronic kidney disease; N18.9 Chronic kidney disease, unspecified; E83.42 Hypomagnesemia; E78.5 Hyperlipidemia, unspecified; K21.9 Gastro-esophageal reflux disease without esophagitis; G47.30 Sleep apnea, unspecified; G89.29 Other chronic pain; M54.9 Dorsalgia, unspecified; I45.10 Unspecified right bundle-branch block; R79.89 Other specified abnormal findings of blood chemistry; F17.210 Nicotine dependence, cigarettes, uncomplicated; Z79.84 Long term (current) use of oral hypoglycemic drugs; Z79.51 Long term (current) use of inhaled steroids; Z79.899 Other long term (current) drug therapy; Z99.89 Dependence on other enabling machines and devices; Z87.81 Personal history of (healed) traumatic fracture; Z88.5 Allergy status to narcotic agent; Z88.8 Allergy status to other drugs, medicaments and biological substances
CPT/HCPCS: 36415; 71046; 71275; 74177; 80048; 80053; 80061; 83605; 83735; 83880; 84145; 84484; 85025; 85379; 85610; 85730; 86140; 87502; 93005; 93306; 94640; 94760; 96360; 96361; 96365; 99285

== ENCOUNTER → 2020-01-20 | Outpatient (CLI) | payer OTHER ==
--- NOTE | 2020-01-20 21:04 | CONS ---
CONSULTATION REASON FOR CONSULTATION: Obstructive sleep apnea. A 59-year-old who was diagnosed and treated for obstructive sleep apnea and the patient has an older generation CPAP unit which is an APAP which is currently malfunctioning. The patient is coming in for further advice. His diagnosis has been established more than six years ago through the [facility] in [place]. He has history of traumatic brain injury and PTSD. In addition to that, he is obese, has diabetes, hypertension, COPD, and hyperlipidemia. He has chronic issues with back pain and lumbar stenosis. Unable to get any compliance data from his machine which is fully nonfunctional. He was using a Mirage Quattro large-sided full face mask. after treatment, he is symptomatic, he snores and he quits breathing on multiple occasions. His sleep is very much fragmented. He had difficulty initiating sleep in general. He goes to bed late, around 3:00 a.m., gets out of bed around 8:00 a.m. in the morning. His sleep is extremely fragmented and he was doing much better while he was on a CPAP machine. No recent weight gain or weight loss. His current [place] score is somewhere between 3-5. His sleep is broken and fragmented. No active signs of depression. No chronic anxiety. He has PTSD and occasional nightmares. He has issues with memory and concentration especially when he is off the BiPAP. He is waking up tired and fatigued. He feels fatigued throughout the day. PAST MEDICAL HISTORY: 1. TBI. 2. PTSD. 3. Obesity. 4. Diabetes. 5. Hypertension. 6. COPD. 7. Hyperlipidemia. 8. Lumbar stenosis. 9. Obstructive sleep apnea. PAST SURGICAL HISTORY: Surgical history includes back surgery involving disc surgery with an interbody fusion and left knee replacement. DRUG ALLERGIES: CODEINE, WELLBUTRIN, GABAPENTIN. OUTPATIENT MEDICATION LIST: His outpatient medication list includes: 1. Lisinopril/hydrochlorothiazide 20/25 one tablet per day. 2. Zocor 80 mg p.o. per day. 3. Omeprazole 40 mg p.o. per day. 4. Albuterol HFA p.r.n. 5. Albuterol updrafts p.r.n. 6. Budesonide 0.5 mg twice a day. 7. Tizanidine 4 mg twice a day. 8. Metformin 1 g twice a day. 9. Aspirin 81 mg p.o. per day. SOCIAL HISTORY: Nonsmoker. No history of alcohol. No history of IV drugs. Occupational history: He is a . 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 Currently, he is on disability. REVIEW OF SYSTEMS: [id number] review of systems was done. Of significance is the ongoing nightmares, flashbacks related to PTSD. He has also delay sleep onset probably a component of delayed sleep phase syndrome. Excessive fatigue and sleepiness and snoring and broken sleep as the patient is unable to utilize his CPAP machine for now. No grinding of the teeth. He had previous facial injury which is related also to his traumatic brain injury. No sleep walking or sleep talking. No active depression. He has chronic anxiety. No heartburn. No palpitation. No nausea, vomiting, abdominal pain. No chest pain. No shortness of breath. He has chronic back pain. PHYSICAL EXAMINATION: VITAL SIGNS: BP is 174/77, pulse 90, respirations 16, temperature 98.3, saturation 97% on room air. Height is 5 feet 11 inches, weight is 255, and neck size 19 inches. GENERAL APPEARANCE: Obese, calm, comfortable. No acute distress. HEAD: Atraumatic, normocephalic. NECK: Supple. No JVD. No goiter or neck masses. Mallampati class IV. LUNGS: Clear to auscultation. HEART: Heart sounds are regular rate and rhythm. Normal S1, S2. No S3, S4. No murmurs. ABDOMEN: Soft, nontender. No organomegaly. No direct tenderness, rebound or guarding. EXTREMITIES: No edema. No cyanosis or clubbing. IMPRESSION: 1. Obstructive sleep apnea. The patient is currently suffering from sleep fragmentation, excessive fatigue, and sleepiness during the day as his current machine is malfunctioning. In fact, this is a fully malfunctioning machine as the patient is unable to utilize the machine for now. 2. PTSD. 3. Traumatic brain injury. 4. 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 5. Hypertension. 6. COPD. 7. Hyperlipidemia. 8. Chronic back pain related to lumbar stenosis. 9. Diabetes mellitus. PLAN: 1. Proceed with a home sleep study to establish diagnosis. 2. Once diagnosis is reestablished, will proceed with an APAP machine for this patient with a minimum pressure of 5, maximum pressure of 15, and we will continue giving him the Mirage Quattro large-sized full face mask which he loves and he is not willing to switch for the time being. YONATHAN / ROSCOE: [id number] /
== END | disposition home or self-care (01) ==
LOC: SLEEP 15:00
PROVIDERS: ATTEND Internal Medicine Critical Care Medicine
DX: G47.33 Obstructive sleep apnea (adult) (pediatric) (principal); F43.10 Post-traumatic stress disorder, unspecified; S06.9X0A Unspecified intracranial injury without loss of consciousness, initial encounter; I10 Essential (primary) hypertension; J44.9 Chronic obstructive pulmonary disease, unspecified; E78.5 Hyperlipidemia, unspecified; E11.9 Type 2 diabetes mellitus without complications; M48.061 Spinal stenosis, lumbar region without neurogenic claudication; M54.9 Dorsalgia, unspecified; G89.29 Other chronic pain; R53.83 Other fatigue; Z79.84 Long term (current) use of oral hypoglycemic drugs; Z79.82 Long term (current) use of aspirin; Z79.899 Other long term (current) drug therapy; Z88.5 Allergy status to narcotic agent; Z88.8 Allergy status to other drugs, medicaments and biological substances
CPT/HCPCS: 99211

== ENCOUNTER → 2020-03-22 | Outpatient (CLI) | payer OTHER ==
[2020-03-22 14:14] LABS: African American GFR (CKD) >90 (>60 ml/min/1.73 sqM); Blood Urea Nitrogen 16 mg/dL (9-20); Non-African American GFR(CKD) >90 (>60 ml/min/1.73 sqM)
--- NOTE | 2020-03-22 15:24 | CT ---
EXAMINATION TYPE: CT adrenal glands wo/w con DATE OF EXAM: 03/22/2020 COMPARISON: CT abdomen and pelvis December 11, 2019 and older lumbar spine CT April 20, 2017 HISTORY: Benign neoplasm of unspecified adrenal gland. CT DLP: 1897.4 mGycm Automated exposure control for dose reduction was used. CONTRAST: Performed of the abdomen focusing on the adrenal glands with oral and without and with IV Contrast, p atient injected with 100 mL of Isovue M300. Adrenal gland protocol. FINDINGS: Adrenal glands: Redemonstration of low dense right adrenal mass measuring 2.6 x 2.0 cm axial image 16 not significantly changed in size or appearance from lumbar spine CT 2017. Hounsfield units average -13 on noncontrast images. Enhancement up to 25 Hounsfield units on 1 minute postcontrast images with washout to -6 Hounsfield units on 15 minute delayed phase images. All characteristics consistent wit h benign lipid rich adenoma. Stable slight thickening to left adrenal gland unchanged from [address] CT. LUNG BASES: No significant abnormality is appreciated. LIVER/GB: There is 1.1 cm low dense lesion anterior liver left hepatic lobe axial image 8 too small t o further characterize strongly favored benign. PANCREAS: No significant abnormality is seen. SPLEEN: No significant abnormality is seen. KIDNEYS: Simple-appearing thin-walled 1.6 cm cyst right kidney upper to midpole level posteriorly ser ies 5 image 23 redemonstrated. No hydronephrosis seen bilaterally. Exophytic subcentimeter cyst anter iorly image 30 series 13 noted. ADENOPATHY: No greater than 1 cm abdominal adenopathy. OSSEOUS STRUCTURES: Persistent moderate to severe disc space narrowing with vacuum disc phenomenon a t lumbosacral junction. Posterior decompression at this level noted. Mild multilevel spurring in the spine. BOWEL: Oral contrast within jejunal loops left abdomen. No suspicious small or large bowel dilatatio n. Central deviation of the left colon noted. OTHER: Mild to moderate calcified plaque of the aorta extends into iliac branch vessels.. 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
== END | disposition home or self-care (01) ==
LOC: RADCTMAIN 13:36
DX: D35.01 Benign neoplasm of right adrenal gland (principal)
CPT/HCPCS: 36415; 74170; 82565; 84520

== ENCOUNTER 2022-04-10 16:48 | Emergency (ER) | payer OTHER ==
[2022-04-10 17:00] VITALS: BP 139/92; PULSE 94; RESP 20; TEMP 98.1
[2022-04-10] MEDS ORDERED: KETOROLAC 15 MG/ML 1 ML VIAL IM STA (17:52)
[2022-04-10] MEDS ORDERED: DIPH,PERTUS(ACELL)TETVAC-LF 0.5 ML VIAL IM ONE (17:53)
[2022-04-10] MEDS ORDERED: ACETAMINOPHEN TAB 500 MG TAB PO STA (17:53)
[2022-04-10] MEDS ORDERED: AMOXIC-POT CLAV 875-125MG 1 EACH TAB PO STA (17:54)
--- NOTE | 2022-04-10 18:07 | ED ---
Animal Bite HPI - General Chief Complaint: Animal Bite Stated Complaint: Dog Bite Time Seen by Provider: 04/10/22 17:41 Source: patient, RN notes reviewed Mode of arrival: ambulatory Limitations: no limitations - History of Present Illness Initial Comments: Patient was bit in the proximal aspect of his left thumb while trying to break up a fight between his own 2 dogs. Last tetanus is unknown. Her injuries. Injury occurred about 2 hours prior to me seeing the patient. Patient complains of pain to the area which is exacerbated by movement and somewhat alleviated by rest. Patient is known cigarette smoker. [id number]. No headache, no fever or chills, no changes in vision or hearing, no sore throat or difficulty with speech, no neck pain, no chest pain or shortness of breath, no abdominal pain, no nausea or vomiting, no changes in urination or bowel movements, no numbness or tingling, POSITIVE for pain to the left thumb area., no skin rashes or lesions. MD Complaint: animal bite - Related Data Home Medications Medication Instructions Recorded Confirmed Simvastatin 80 mg PO HS 08/14/18 12/11/19 Lisinopril-Hctz 20-25 mg 1 tab PO DAILY 09/05/18 12/11/19 [Zestoretic 20-25] tiZANidine [Zanaflex] 4 mg PO BID 09/23/18 12/11/19 Omeprazole 40 mg PO DAILY 03/14/19 12/11/19 metFORMIN HCL [Glucophage] 1,000 mg PO BID 03/14/19 12/11/19 Loratadine [Claritin] 10 mg PO DAILY 05/15/19 12/11/19 Ibuprofen [Motrin] 800 mg PO TID PRN 12/11/19 12/11/19 Lidocaine 4% Cream [Lmx 4] 1 applic TOPICAL BID PRN 12/11/19 12/11/19 glipiZIDE [Glucotrol] 5 mg PO BID 12/11/19 12/11/19 Previous Rx's Medication Instructions Recorded Aspirin 81 mg PO DAILY chew 12/14/19 Azithromycin [Zithromax] 500 mg PO DAILY 3 Days #3 tab 12/14/19 predniSONE [Deltasone] 40 mg PO DAILY 4 Days #4 tab 12/14/19 Acetaminophen [Tylenol] 500 mg PO Q4-6H PRN #24 tab 04/10/22 Cephalexin [Keflex] 500 mg PO Q6HR #40 cap 04/10/22 Ibuprofen [Motrin] 600 mg PO Q8HR PRN #30 tab 04/10/22 Allergies Allergy/AdvReac Type Severity Reaction Status Date / Time codeine Allergy Nausea Verified 04/10/22 16:59 bupropion [From Wellbutrin] AdvReac Nausea & Verified 04/10/22 16:59 Vomiting gabapentin AdvReac Nausea & Verified 04/10/22 16:59 Vomiting/dizzyness pregabalin AdvReac Nausea & Verified 04/10/22 16:59 Vomiting tramadol AdvReac Nausea & Verified 04/10/22 16:59 Vomiting Review of Systems ROS Statement: Those systems with pertinent positive or pertinent negative responses have been documented in the HPI. ROS Other: All systems not noted in ROS Statement are negative. Past Medical History Past Medical History: COPD, Diabetes Mellitus, GERD/Reflux, Hyperlipidemia, Hypertension, Sleep Apnea/CPAP/BIPAP Additional Past Medical History / Comment(s): cpap with O2 , Chronic back pain, hx of jaw fx 1979 History of Any Multi-Drug Resistant Organisms: None Reported Past Surgical History: Back Surgery Additional Past Surgical History / Comment(s): lumbar surgery ; pain procedures Past Anesthesia/Blood Transfusion Reactions: No Reported Reaction Past Psychological History: No Psychological Hx Reported Smoking Status: Current every day smoker Past Alcohol Use History: None Reported Past Drug Use History: None Reported - Past Family History Mother Family Medical History: No Reported History General Exam Limitations: no limitations General appearance: alert, in distress Head exam: Present: atraumatic, normocephalic, normal inspection Eye exam: Present: normal appearance, EOMI Neck exam: Present: normal inspection, full ROM Respiratory exam: Present: normal lung sounds bilaterally. Absent: respiratory distress, wheezes, rales, rhonchi, stridor Cardiovascular Exam: Present: regular rate, normal rhythm, normal heart sounds. Absent: systolic murmur, diastolic murmur, rubs, gallop, clicks Extremities exam: Present: tenderness, normal capillary refill. Absent: normal inspection, pedal edema, joint swelling, calf tenderness Left Forearm Wrist exam: Present: normal inspection, full ROM. Absent: tenderness Hand Wrist exam: Present: tenderness, swelling, laceration. Absent: normal inspection, full ROM, abrasion, ecchymosis, deformity, crepitus, dislocation, nail avulsion, subungual hematoma Neuro motor exam: Present: wrist extension intact, thumb opposition intact, thumb IP flexion intact, thumb adduction intact, fingers 2-5 abduction intact Neurosensory exam: Present: radial nerve intact, ulnar nerve intact, median nerve intact Vascular: Present: normal capillary refill. Absent: vascular compromise, Pallo Back exam: Present: normal inspection Neurological exam: Present: alert, oriented X3, CN II-XII intact. Absent: motor sensory deficit Course Vital Signs 04/10/22 16:56 Temperature 98.1 F Pulse Rate 94 Respiratory 20 Rate Blood Pressure 139/92 O2 Sat by Pulse 96 Oximetry Procedures - Procedures Initial comment: Wound was irrigated copiously with normal saline. Devitalized tissue was debrided using sterile scissors and forceps. Debridement was 2 x 2 centimeters. Wound was left open to heal by secondary intention. Antibiotic ointment applied. Sterile dressing applied. Patient tolerated well Medical Decision Making - Medical Decision Making Isolated dog bite to left thumb. There was no fracture or foreign body. Patient had good tendon function verse resistance. I checked tendon function in all planes. Strength is +5 out of 5. Opposition was normal. Sensory status was normal. Wound was cleaned and debrided. Sterile dressing applied. Prophylactic antibiotics ordered. Tetanus was updated. Patient was told to return to the ER for any signs or symptoms worsen. Told to return immediately if any other problems arise. All questions answered. Treatment plan discussed. Patient in agreement Every effort has been made to ensure accuracy of this dictation. However, due to the limitations of electronic medical records and dictation devices, errors in charting still occur. [employer] [facility] Judge, Dr. Smith - Radiology Data Radiology results: report reviewed, image reviewed Disposition Clinical Impression: Dog bite, Dog bite of left thumb Disposition: HOME SELF-CARE Condition: Stable Instructions (If sedation given, give patient instructions): Animal Bite (ED) Additional Instructions: Take the antibiotics as directed. Wash the wound daily with warm soap and water. Keep covered with antibiotic ointment and a sterile dressing. Call your regular doctor for recheck in 48-72 hours. Follow-up with your regular physician as directed. Return to the ER immediately if any symptoms worsen, new symptoms arise, or any other problems develop. Is patient prescribed a controlled substance at d/c from ED?: No Referrals: [facility] [Primary Care Provider] - 04/12/22 Time of Disposition: 19:01
--- NOTE | 2022-04-10 18:27 | XR ---
EXAMINATION TYPE: XR hand complete RT DATE OF EXAM: 04/10/2022 COMPARISON: NONE HISTORY: Dog bite. Pain TECHNIQUE: 3 views FINDINGS: Metacarpals are intact. I see no fracture nor dislocation. Joint spaces are normal. Carpal bones are intact. There is mild spurring at the first carpometacarpal joint IMPRESSION: Negative right hand exam. No fracture seen.
[2022-04-10] MEDS ORDERED: BACITRACIN OINT 1 EACH PACKET TOPICAL ONE (18:46)
== END 2022-04-10 19:22 | disposition home or self-care (01) ==
LOC: EC 16:48
DX: S61.052A Open bite of left thumb without damage to nail, initial encounter (principal); J44.9 Chronic obstructive pulmonary disease, unspecified; E11.9 Type 2 diabetes mellitus without complications; K21.9 Gastro-esophageal reflux disease without esophagitis; E78.5 Hyperlipidemia, unspecified; F17.210 Nicotine dependence, cigarettes, uncomplicated; I10 Essential (primary) hypertension; Z88.5 Allergy status to narcotic agent; Z88.6 Allergy status to analgesic agent; Z88.8 Allergy status to other drugs, medicaments and biological substances; Z79.899 Other long term (current) drug therapy; Z79.84 Long term (current) use of oral hypoglycemic drugs; Z23 Encounter for immunization; W54.0XXA Bitten by dog, initial encounter
CPT/HCPCS: 73130; 90715; 99283; 90471; 96372; J1885

== ENCOUNTER → 2023-03-06 | Outpatient (CLI) | payer OTHER ==
[2023-03-06 11:19] LABS: African American GFR (CKD) >90 (>60 ml/min/1.73 sqM); Blood Urea Nitrogen 16 mg/dL (9-20); Non-African American GFR(CKD) >90 (>60 ml/min/1.73 sqM)
--- NOTE | 2023-03-06 11:56 | US ---
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 HTN controlled with meds. TECHNIQUE: Carotid duplex ultrasound examination. Indirect Doppler criteria was utilized. FINDINGS: EXAM MEASUREMENTS: RIGHT: Peak Systolic Velocity (PSV) cm/sec ----- Right CCA: 67.7 ----- Right ICA: 72.4 ----- Right ECA: 76.4 ICA/CCA ratio: 1.1 RIGHT: End Diastole cm/sec ----- Right CCA: 21.5 ----- Right ICA: 34.0 ----- Right ECA: 16.2 LEFT: Peak Systolic Velocity (PSV) cm/sec ----- Left CCA: 68.8 ----- Left ICA: 71.4 ----- Left ECA: 77.9 ICA/CCA ratio: 1.0 LEFT: End Diastole cm/sec ----- Left CCA: 23.2 ----- Left ICA: 33.9 ----- Left ECA: 19.7 VERTEBRALS (direction of flow): Right Vertebral: Antegrade Left Vertebral: Antegrade Rhythm: Arrhythmia DATA CAPTURE SPECIALIST NOTES: Plaque bilateral bulbs extending into proximal ICA and right mid CCA. No elevated velocities or significant stenosis. IMPRESSION: Less than 50% stenosis of the bilateral carotid bifurcations. Criteria for Assigning % of Stenosis / Diameter reduction (Estimation based on the indirect measurements of the internal carotid artery velocities (ICA PSV). 1. Normal (no stenosis)=ICA PSV < 125 cm/s: ratio < 2.0: ICA EDV<40 cm/s. 2. Less than 50% stenosis=ICA PSV < 125 cm/s: ratio < 2.0: ICA EDV<40 cm/s. 3. 50 to 69% stenosis=ICA PSV of 125 to 230 cm/s: ration 2.0 ? 4.0: ICA EDV 40-100 cm/s. 4. Greater than 70% stenosis to near occlusion= ICA PSV > 230 cm/s: ratio > 4.0: ICA EDV > 100 cm/s. 5. Near occlusion= ICA PSV velocities may be low or undetectable: variable ratio and ICA EDV. 6. Total occlusion=unable to detect flow.
--- NOTE | 2023-03-06 14:12 | CT ---
EXAMINATION TYPE: CT brain wo/w con DATE OF EXAM: 03/06/2023 COMPARISON: None HISTORY: 62-year-old male G5 1.0, [place] Palsy TECHNIQUE: Examination was done in axial plane before and after administration of 100 mL Isovue 300 intravenous contrast. Coronal and sagittal reconstructions performed. CT DLP: 2398 mGycm Automated exposure control for dose reduction was used. FINDINGS: There is no evidence of acute intracranial hemorrhage, acute ischemic changes, mass, mass-effect, or extra-axial fluid collection. There is no effacement of cerebral sulci or basal subarachnoid cister ns. There is no hydrocephalus. There is no midline shift. Mejía-white matter distinction is preserv ed. Following IV contrast administration, no enhancing intracranial lesions are seen. Venous sinuses are patent. There is moderate mucosal thickening throughout the ethmoid air cells and maxillary sinuses. Layering fluid within the bilateral maxillary sinuses. Mastoid air cells and middle ear cavities well pneumat ized. Orbits and globes are intact. IMPRESSION: 1. No acute intracranial abnormality or enhancing intracranial lesions are seen. 2. Moderate chronic ethmoid and maxillary sinus disease with air-fluid levels suggesting superimposed acute sinusitis. Clinically correlate..
== END | disposition home or self-care (01) ==
LOC: RADUSWWP 10:27
PROVIDERS: ATTEND Family Medicine
DX: I65.23 Occlusion and stenosis of bilateral carotid arteries (principal); J01.80 Other acute sinusitis; G51.0 Bell's palsy; I10 Essential (primary) hypertension
CPT/HCPCS: 82565; 84520; 93880; 70470; 36415; Q9967

== ENCOUNTER → 2023-04-04 | Outpatient (CLI) | payer OTHER ==
--- NOTE | 2023-04-04 14:05 | CTL ---
EXAMINATION TYPE: CT Low Dose Lung DATE OF EXAM ORDERED: 04/04/2023 HISTORY: Long-term tobacco use. Lung cancer screening CT DLP: 134.[address] CTDI: 3.4 mGy Automated exposure control for dose reduction was used. SCREENING VISIT: Baseline COMPARISON: None TECHNIQUE: Low dose computed tomography scan was performed through the chest at 1 mm thick sections a nd reconstructed images in multiple planes at 1 mm and [address] DIAGNOSTIC QUALITY: Satisfactory FINDINGS: LUNG NODULES: None. LUNGS: COPD: Severity: Mild Fibrosis: Severity: Minimal Lymph nodes: None Other findings: Some calcification at level of the aortic valve RIGHT PLEURAL SPACE: Effusion: None Calcification: None Thickening: None Pneumothorax: None LEFT PLEURAL SPACE: Effusion: None Calcification: None Thickening: None Pneumothorax: None HEART: Heart Size: Normal Coronary Calcification: Mild to moderate Pericardial Effusion: None OTHER FINDINGS: Upper abdomen: None Bony thorax: Slight scoliotic curvature. Mild/moderate multilevel anterior spurring. Supraclavicular region: None Other: None IMPRESSION: No suspicious nodules. CT LUNG RAD AND CT CHEST RECOMMENDATION: Lung-Rad 1 Negative: Continue annual screening with LDCT in 12 months. S Modifier (other clinically significant findings): None
== END | disposition home or self-care (01) ==
LOC: RADCTMAIN 13:25
PROVIDERS: ATTEND Internal Medicine Critical Care Medicine
DX: Z12.2 Encounter for screening for malignant neoplasm of respiratory organs (principal); I25.10 Atherosclerotic heart disease of native coronary artery without angina pectoris; F17.210 Nicotine dependence, cigarettes, uncomplicated
CPT/HCPCS: 71271

== ENCOUNTER 2024-09-03 11:41 | Day surgery (SDC) | payer OTHER ==
[~2024-09-03 11:41] MED LIST changes: -DEXAMETHASONE SOD PHOSPHATE 10 MG/ML 1 ML VIAL IV ONE; +DEXAMETHASONE SOD PHOSPHATE 4 MG/ML 1 ML VIAL IV ONE; -HYDROmorphone 0.5 MG/0.5 ML SYRINGE IVP PRN; +LIDOCAINE 1% (10MG/ML) FOR IV START INTRADERMA PRN; -LIDOCAINE 1% 20 ML VIAL (10MG/ML) FOR IV START INTRADERMA PRN; +ONDANSETRON 4 MG/2 ML VIAL IVP ONE; -ceFAZolin 3 GM in SODIUM CHLORIDE 0.9% 100 ML IVPB ONE
[2024-09-03] MEDS: IV FLUID CONTINUATION 1,000 ML IV ONE (12:11)
[2024-09-03] MEDS: LACTATED RINGERS 1,000 ML IV SCH (12:18)
[2024-09-03] MEDS: ATROPINE SULFATE 0.4 MG/ML 1 ML VIAL IM ONE (12:18)
[2024-09-03 12:26] LABS: Glucose,Whole Blood 147 mg/dL (70-110)
[2024-09-03] MEDS ORDERED: LIDOCAINE 1% INJ 10MG/ML (20 ML MDV) ONE (12:28)
[2024-09-03] MEDS ORDERED: PROPOFOL 10 MG/ML 20 ML VIAL IV ONE (12:28)
[2024-09-03] MEDS ORDERED: KETAMINE HCL IN 0.9 % NACL 50 MG/5 ML SYRINGE ONE (12:28)
[2024-09-03] MEDS: LIDOCAINE 2% INJ 20 MG/ML INTRATRACH ONE ×2 (12:33→12:35)
[2024-09-03] MEDS: IPRATROPIUM-ALBUTEROL 3 ML NEB INHALATION STA (13:44)
[2024-09-03 13:54] VITALS: BP 106/59; PULSE 101; RESP 22
--- NOTE | 2024-09-03 19:53 | PCN ---
PROCEDURE NOTE PULMONARY/CRITICAL CARE PROCEDURE NOTE: PROCEDURES PERFORMED: Bronchoscopy, airway examination, therapeutic lavage, BAL. PREOPERATIVE DIAGNOSES: Retained secretions, chronic bronchitis, cough. POSTOPERATIVE DIAGNOSES: Retained secretions, chronic bronchitis, cough. EDUCATION DIAGNOSTICIAN: Dr. Silvestre. FIRST FIELD ARTILLERY FIRE CONTROL MAN: Dr. Joya Levin. There was informed consent and universal timeout. ANESTHESIA PROVIDED: Monitored anesthesia care. The patient's procedure was done in room #1 [facility]. DESCRIPTION OF PROCEDURE: After the patient was sedated and being fully monitored, the bronchoscope was inserted through the left nostril. It passed through the nasopharynx into the oropharynx. The hypopharynx was then identified. The hypopharyngeal structures, including anterior commissure, true cords, false cords, arytenoids, piriform sinuses, right and left, and vallecula, all appeared relatively normal. There were some secretions noted in the hypopharynx. The glottic opening was topicalized. The bronchoscope was pushed through the glottic opening into the trachea. There were fair amount of secretions noted in the trachea. They were suctioned. There was no tracheal mass or tumor. Tracheal yakelin was sharp. The right and left mainstem bronchi were anesthetized with lidocaine. After that, we did a thorough evaluation of the right and left lung. Right upper lobe and its 3 segments, right middle lobe and its 2 segments, right lower lobe and its 5 segments, left upper lobe proper and its 2 segments, lingula and its 2 segments, the left lower lobe and its 4 segments all had similar findings of diffuse airway erythema and hyperemia. There was vascular engorgement. The airways were low friable. There were thick secretions noted throughout. The secretions were suctioned without difficulty. The bronchoscope was then wedged into the right middle lobe. A formal BAL took place. More than 30 mL of turbid fluid was recovered. Additional secretions were removed with saline lavage. The bronchoscope was then withdrawn. The patient will be recovered. There was no immediate complication. MMODL / IJN: [id number] /
[2024-09-04 14:26] LABS: Appearance,BF Hazy (Clear); RBC, Body Fluid 30 /UL (0-2000)
[2024-09-08 09:50] LABS: Nucleated Cells, Body Fluid 915 /UL
== END 2024-09-03 14:02 | disposition home or self-care (01) ==
LOC: ORWHC2ENDO 11:41
PROVIDERS: ATTEND Internal Medicine Critical Care Medicine
DX: J44.1 Chronic obstructive pulmonary disease with (acute) exacerbation (principal); J98.4 Other disorders of lung; I10 Essential (primary) hypertension; E78.5 Hyperlipidemia, unspecified; K21.9 Gastro-esophageal reflux disease without esophagitis; E11.9 Type 2 diabetes mellitus without complications; G47.33 Obstructive sleep apnea (adult) (pediatric); F17.210 Nicotine dependence, cigarettes, uncomplicated; Z79.899 Other long term (current) drug therapy; Z79.4 Long term (current) use of insulin; Z79.82 Long term (current) use of aspirin; Z79.84 Long term (current) use of oral hypoglycemic drugs; Z79.51 Long term (current) use of inhaled steroids; Z88.8 Allergy status to other drugs, medicaments and biological substances; Z88.5 Allergy status to narcotic agent
CPT/HCPCS: 88108; 88305; 89050; 87070; 87205; 87116; 87102; 87077; 87186; 87206; 31624; J0461; J2003 ×2; J2704

== ENCOUNTER → 2024-11-21 | Outpatient (CLI) | payer OTHER ==
--- NOTE | 2024-11-21 18:16 | CA ---
Transthoracic Echo Report Name: Aldo Mcguire Age: 64 Gender: M : 1960 Exam Date: 11/21/2024 17:20 Exam Location: [facility] Ht (in): 70 Wt (lb): 218 Ordering Physician: Cecilio Georges DO Attending/Referring Phys: Juhi Crocker PAC Zigzag Stitcher Corrie Hunter RDCS Procedure CPT: Indications: R06.00 DYSPNEA, UNSPECIFIED Cardiac Hx: Technical Quality: Poor Contrast 1: Total Dose (mL): Contrast 2: Total Dose (mL): MEASUREMENTS (Male / Female) Normal Values 2D ECHO LV Diastolic Diameter PLAX 5.2 cm 4.2 - 5.9 / 3.9 - 5.3 cm LV Systolic Diameter PLAX 3.7 cm IVS Diastolic Thickness 0.8 cm 0.6 - 1.0 / 0.6 - 0.9 cm LVPW Diastolic Thickness 1.0 cm 0.6 - 1.0 / 0.6 - 0.9 cm LV Relative Wall Thickness 0.3 LVOT Diameter 2.1 cm DOPPLER AV Peak Velocity 328.6 cm/s AV Peak Gradient 43.2 mmHg AV Mean Velocity 232.7 cm/s AV Mean Gradient 25.0 mmHg AV Velocity Time Integral 59.2 cm LVOT Peak Velocity 96.8 cm/s LVOT Peak Gradient 3.8 mmHg LVOT Velocity Time Integral 15.0 cm LVOT Stroke Volume 52.6 cm??? LVOT Stroke Volume Index 24.3 ml/m??? LVOT Cardiac Index 2305.5 cm???/min???m??? AV Area Cont Eq vti 0.9 cm??? AV Area Cont Eq pk 1.0 cm??? MV Area PHT 6.3 cm??? Mitral E Point Velocity 37.3 cm/s Mitral A Point Velocity 60.1 cm/s Mitral E to A Ratio 0.6 MV Deceleration Time 119.7 ms PV Peak Velocity 104.1 cm/s PV Peak Gradient 4.3 mmHg FINDINGS Left Ventricle Left ventricular ejection fraction is estimated at 55-60 %. Left ventricular cavity size normal. Left ventricular wall thickness normal.Normal left ventricular systolic function with no obvious regional wall motion abnormalities. Right Ventricle Right ventricular dilatation. Unable to estimate the right ventricular systolic pressure. Right Atrium Normal right atrial size. Left Atrium Normal left atrial size. Mitral Valve Structurally normal mitral valve. No mitral stenosis. No evidence for mitral valve prolapse. Mild mitral regurgitation. Aortic Valve Trileaflet aortic valve. Diffuse thickening of the aortic valve cusps with reduced excursion. Moderate to severe aortic stenosis. No aortic regurgitation. Peak gradient 43 mmHg with a mean of 25 mmHg. The gradient may be underestimated because of the quality of the images. Tricuspid Valve Structurally normal tricuspid valve. No tricuspid stenosis. mild tricuspid regurgitation. Pulmonic Valve Pulmonic valve not well visualized. . No pulmonic stenosis. Trace pulmonic regurgitation. Pericardium No pericardial effusion. Aorta Aortic root and proximal ascending aorta not well visualized. CONCLUSIONS Technically difficult study. Normal left ventricular size and systolic function Severely calcified aortic valve with reduced opening with mild to moderate stenosis. The quality of the images were suboptimal and could not underestimate the severity of the aortic valve stenosis. Mild mitral and tricuspid regurgitation Previewed by: Dr. Gladis Del Toro MD (Electronically Signed) Final Date: 21 November 2024 18:15
== END | disposition home or self-care (01) ==
LOC: RADECHMAIN 16:50
PROVIDERS: ATTEND Family Medicine
DX: R06.00 Dyspnea, unspecified (principal)
CPT/HCPCS: 93306

== ENCOUNTER → 2025-02-03 | Outpatient (CLI) | payer OTHER ==
[2025-02-03 18:25] LABS: HCT 41.1 % (39.6-50.0); HGB 13.9 g/dL (13.0-17.0); MCH 29.1 pg (27.0-32.0); MCHC 33.8 g/dL (32.0-37.0); MCV 86.2 FL (80.0-97.0); Mean Platelet Volume 9.7 FL (9.5-12.2); NRBC Per 100 WBC 0 X 10*3/uL (0.00-0.01); Platelet Count 355 X 10*3/uL (140-440); RBC 4.77 X 10*6/uL (4.40-5.60); RDW 13.5 % (11.5-14.5); WBC 13.49 X 10*3/uL (4.50-10.00)
[2025-02-03 18:42] LABS: Blood Urea Nitrogen 9.4 mg/dL (9.0-27.0); Carbon Dioxide 31.4 mmol/L (21.6-31.8); Chloride 94 mmol/L (96-109); Potassium 3.9 mmol/L (3.5-5.5); Sodium 138 mmol/L (135-145)
== END | disposition home or self-care (01) ==
LOC: LABPAT 12:30
PROVIDERS: ATTEND Internal Medicine
DX: Z01.812 Encounter for preprocedural laboratory examination (principal); R07.9 Chest pain, unspecified
CPT/HCPCS: 80051; 82565; 84520; 85027

== ENCOUNTER → 2025-02-04 | Day surgery (SDC) | payer OTHER ==
[~2025-02-04] MED LIST changes: +ALPRAZolam 0.25 MG TAB PO PRN; +ATORVASTATIN 80 MG TAB PO STA; -DEXAMETHASONE SOD PHOSPHATE 4 MG/ML 1 ML VIAL IV ONE; -LACTATED RINGERS 1,000 ML IV SCH; -LIDOCAINE 1% (10MG/ML) FOR IV START INTRADERMA PRN; +NITROGLYCERIN SL TABS 0.4 MG TAB SUBLINGUAL PRN; -ONDANSETRON 4 MG/2 ML VIAL IVP ONE
[2025-02-04] MEDS: IPRATROPIUM-ALBUTEROL 3 ML NEB INHALATION STA (10:46)
[2025-02-04] MEDS: IV FLUID CONTINUATION 1,000 ML IV ONE (10:50)
[2025-02-04] MEDS: SODIUM CHLORIDE 0.9% 1,000 ML in EMPTY BAG 1 BAG IV SCH (10:50)
[2025-02-04] MEDS: ASPIRIN 325 MG TAB PO STA (10:58)
[2025-02-04 11:04] LABS: Glucose,Whole Blood 201 mg/dL (70-110)
[2025-02-04] MEDS: INSULIN LISPRO (HumaLOG) 100 UNIT/ML 10 mL VL SQ ONE (11:05)
[2025-02-04] MEDS: ALPRAZolam 0.5 MG TAB PO PRN (11:17)
[2025-02-04 11:28] VITALS: TEMP 98.1
[2025-02-04] MEDS: fentaNYL (PF) 50 MCG/1 ML VIAL IVP ONE (12:12)
[2025-02-04] MEDS: MIDAZOLAM 2 MG/2 ML VIAL IVP ONE (12:12)
[2025-02-04] MEDS: LIDOCAINE 1% INJ 10MG/ML (20 ML MDV) SQ ONE (12:13)
[2025-02-04] MEDS: VERAPAMIL SYRINGE (5 MG/10 ML) INTRAARTER ONE (12:16)
[2025-02-04] MEDS: HEPARIN SODIUM,PORCINE (1 ML) 2,500 UNIT in SODIUM CHLORIDE 0.9% 250 ML IRRIGATION PRN (12:17)
[2025-02-04] MEDS: HEPARIN SODIUM,PORCINE 10,000 UNIT in SODIUM CHLORIDE 0.9% 1,000 ML IRRIGATION PRN (12:17)
[2025-02-04] MEDS: HEPARIN SODIUM 1,000 UN/ML (10ML VL) IV ONE (12:29)
[2025-02-04 12:40] LABS: O2 Sat Blood Gas 83.1 %
[2025-02-04 12:43] LABS: O2 Sat Blood Gas 55.9 %
[2025-02-04 12:48] LABS: O2 Sat Blood Gas 56.3 %
[2025-02-04] MEDS: IOPAMIDOL-370 100ML BTL INJ ONE (12:48)
[2025-02-04 12:54] LABS: Glucose,Whole Blood 207 mg/dL (70-110)
--- NOTE | 2025-02-04 13:03 | P.CARDCATH ---
Description of Procedure: PROCEDURES PERFORMED: Left and right heart catheterization, bilateral coronary angiography, ultrasound guided arterial access INDICATION: Aortic stenosis, dyspnea on exertion concerning for angina CONSENT:I have discussed the risks, benefits and alternative therapies for the above-mentioned procedure and for both sedation/analgesia as well as necessary blood product administration, if indicated, as they pertain to this patient. The patient has indicated understanding and acceptance of the risks and procedures discussed. PROCEDURE: After the risks, benefits and alternatives of the above mentioned procedure explained in detail with the patient, informed consent was obtained. Patient was taken to the catheterization lab and prepped and draped in usual fashion. Ultrasound guidance was used to assess for arterial access. 1% lidocaine was used to anesthetize the right radial artery and right brachial vein. A 6-[place] sheath was placed in the right radial artery and right brachial vein using modified Seldinger technique and ultrasound guidance. Left coronary angiography was performed with a 5-[place] JL 3.5 catheter and right coronary angiography was performed with a 5-[place] FR5 catheter in various views. A 5-[place] FR5 catheter was inserted into the left ventricle and pressure measurements were obtained. The right radial sheath was removed and a TR band was placed with hemostasis achieved. The patient tolerated the procedure well. Patient was transported back to the post catheterization holding area in stable condition. Conscious Sedation: Patient was monitored under the direct supervision of myself for conscious sedation using Versed and fentanyl for a total duration of 47 minutes HEMODYNAMICS: Ao: 110/72 LV: 151/7, LVEDP 14; mean gradient 41mmHg across the valve PCWP: 13 PA: 45/20 RV: 51/12 RA: 11 PA oxygen saturation: 56% RA oxygen saturation: 56% Right radial oxygen saturation (off any oxygen): 83% CO by SUPRIYA: 5.8 L/min CI by SUPRIYA: 2.8 L/min/m2 CO by thermodilution: 6.7 L/min CI by thermodilution: 3.2 L/min/m2 SELECTIVE CORONARY ARTERIOGRAPHY: LEFT MAIN: The left main is a large caliber vessel which bifurcates into the LAD and circumflex. There is no significant stenosis. LEFT ANTERIOR DESCENDING CORONARY ARTERY: LAD is a large caliber vessel which wraps around to the apex. There is no significant stenosis. LEFT CIRCUMFLEX CORONARY ARTERY: Left circumflex is a moderate caliber vessel without significant stenosis. RIGHT CORONARY ARTERY: The right coronary artery is a large caliber vessel which gives off a PDA and PLV branch and is the dominant vessel. There is no significant stenosis. FINAL IMPRESSION: 1. Normal coronary arteries as described above. 2. Mildly elevated right sided filling pressures 3. Severe aortic stenosis with mean aortic gradient with 41 mmHg PLAN: 1. Aggressive risk factor modification per most recent ACC/AHA guidelines. 2. Consider further workup of aortic valve with CHAD.
[2025-02-04 18:39] VITALS: RESP 18
[2025-02-04 18:43] VITALS: BP 98/66; PULSE 94
== END ==
LOC: CATHCVL 10:12
PROVIDERS: ATTEND Internal Medicine
DX: I35.0 Nonrheumatic aortic (valve) stenosis (principal); I10 Essential (primary) hypertension; E78.5 Hyperlipidemia, unspecified; F17.200 Nicotine dependence, unspecified, uncomplicated; J44.9 Chronic obstructive pulmonary disease, unspecified; E11.9 Type 2 diabetes mellitus without complications; Z99.81 Dependence on supplemental oxygen; Z88.5 Allergy status to narcotic agent; Z79.82 Long term (current) use of aspirin; Z79.4 Long term (current) use of insulin; Z79.51 Long term (current) use of inhaled steroids
CPT/HCPCS: 94640; 85018; 82810; 93460; J2250; J1644 ×3; J2003; Q9967; J3010

== ENCOUNTER 2025-02-09 12:11 | Day surgery (SDC) | payer OTHER ==
[2025-02-06 09:26] VITALS: BMI 29.4
[~2025-02-09 12:11] MED LIST changes: -ALPRAZolam 0.25 MG TAB PO PRN; -ATORVASTATIN 80 MG TAB PO STA; +BENZOCAINE SPRAY 1 EACH MM SCH; +MIDAZOLAM 2 MG/2 ML VIAL IV PRN; -NITROGLYCERIN SL TABS 0.4 MG TAB SUBLINGUAL PRN; +fentaNYL (PF) 50 MCG/ML 5 ML AMP IVP PRN
[2025-02-09 12:41] LABS: Glucose,Whole Blood 197 mg/dL (70-110)
[2025-02-09 12:47] VITALS: TEMP 97.8
[2025-02-09] MEDS: IV FLUID CONTINUATION 1,000 ML IV ONE (12:48)
[2025-02-09] MEDS: BENZOCAINE SPRAY 1 EACH MM ONE (13:06)
[2025-02-09] MEDS: fentaNYL (PF) 50 MCG/ML 2 ML AMP IVP ONE (13:11)
[2025-02-09] MEDS: MIDAZOLAM 2 MG/2 ML VIAL IVP ONE (13:11)
--- NOTE | 2025-02-09 13:32 | P.TEE ---
Description of Procedure(s): Procedure performed: Transesophageal Echocardiogram with color flow doppler, pulsed wave doppler and continuous wave doppler, moderate conscious sedation Moderate conscious sedation: Moderate conscious sedation was supplied with direct supervision of myself using Versed and Fentanyl. Complications: none Indications: Aortic stenosis PROCEDURE: After the risks, benefits and alternatives of the above mentioned procedure was explained in detail with the patient, informed consent was obtained. Patient was brought to the lab in a fasting state. Patient was given IV Versed and Fentanyl for sedation. The throat was sprayed with Hurricane to anesthetize the throat. A lubricated Omni probe was then introduced into the esophagus and stomach and multiple views were obtained. 2D echo with color flow doppler, pulsed wave doppler and continuous wave doppler was utilized. Agitated saline bubbles were injected to assess for any intra-atrial shunt. The probe was then removed. Patient tolerated the procedure well. Patient was transferred to the post procedure area in stable and satisfactory condition. FINDINGS: 1. The aortic valve appears to be tricuspid. There is severe aortic stenosis with PANKAJ 0.9-1.0cm2 by planimetry. Vmax 3.95m/s, mean gradient 38mmHg 2. The mitral valve appears be normal with mild regurgitation. 3. Tricuspid valve appears to be normal. 4. The interatrial septum is intact. There is lipomatous interatrial septum. No evidence of PFO. 5. Left atrial appendage is free of clot. 6. Left ventricular EF 55%
[2025-02-09 16:02] VITALS: RESP 16
[2025-02-09 16:06] VITALS: BP 121/66; PULSE 96
== END 2025-02-09 14:45 | disposition home or self-care (01) ==
LOC: CATHCVL 12:11
PROVIDERS: ATTEND Internal Medicine
DX: I35.0 Nonrheumatic aortic (valve) stenosis (principal); I34.0 Nonrheumatic mitral (valve) insufficiency; I10 Essential (primary) hypertension; E78.5 Hyperlipidemia, unspecified; F17.200 Nicotine dependence, unspecified, uncomplicated; J44.9 Chronic obstructive pulmonary disease, unspecified; E11.9 Type 2 diabetes mellitus without complications; Z99.81 Dependence on supplemental oxygen; R60.0 Localized edema; Z79.82 Long term (current) use of aspirin; Z79.4 Long term (current) use of insulin
CPT/HCPCS: 93312; 93320; 93325; J2250; J3010

== ENCOUNTER → 2025-02-17 | Outpatient (CLI) | payer OTHER ==
[2025-02-17 09:47] LABS: Basophils # (A) 0.07 10*3/uL (0.00-0.10); Basophils % (A) 0.5 %; Eosinophils # (A) 0.09 10*3/uL (0.04-0.35); Eosinophils % (A) 0.6 %; HCT 43.4 % (39.6-50.0); HGB 14.7 g/dL (13.0-17.0); Lymphocytes # (A) 1.43 10*3/uL (0.90-5.00); Lymphocytes % (A) 9.5 %; MCH 28.8 pg (27.0-32.0); MCHC 33.9 g/dL (32.0-37.0); MCV 84.9 fL (80.0-97.0); Mean Platelet Volume 9.3 fL (9.5-12.2); Monocytes # (A) 1.18 10*3/uL (0.20-1.00); Monocytes % (A) 7.9 %; Neutrophils % (A) 80.6 %; Platelet Count 388 10*3/uL (140-440); RBC 5.11 10*6/uL (4.40-5.60); RDW 13.5 % (11.5-14.5)
[2025-02-17 10:03] LABS: Partial Thromboplastin Time 23.3 sec (22.0-30.0); Prothrombin Time 10.9 sec (10.0-12.5)
[2025-02-17 10:10] LABS: ALT 37 U/L (4-49); AST 38 U/L (17-59); African American GFR (CKD) >90 (>60 ml/min/1.73 sqM); Albumin 4.4 g/dL (3.5-5.0); Albumin/Globulin Ratio 1.7; Alkaline Phosphatase 56 U/L (38-126); Anion Gap 6 mmol/L; Blood Urea Nitrogen 11 mg/dL (9-20); Calcium 10.2 mg/dL (8.4-10.2); Carbon Dioxide 35 mmol/L (22-30); Chloride 92 mmol/L (98-107); Globulin 2.6 g/dL; Glucose 124 mg/dL (74-99); Magnesium 1.6 mg/dL (1.6-2.3); Non-African American GFR(CKD) >90 (>60 ml/min/1.73 sqM); Sodium 133 mmol/L (137-145); Total Bilirubin 0.9 mg/dL (0.2-1.3)
[2025-02-17 10:19] LABS: NT-Pro-B-Type Natriuretic Pept 48 pg/mL
--- NOTE | 2025-02-17 10:59 | US ---
EXAMINATION TYPE: US carotid duplex BILAT DATE OF EXAM: 02/17/2025 COMPARISON: US 2022 CLINICAL INDICATION: Male, 64 years old with history of R55 SYNCOPE; Syncope TECHNIQUE: Grayscale, color Doppler and spectral Doppler evaluation of the bilateral carotid systems and vertebral arteries. Indirect Doppler criteria was utilized. FINDINGS: EXAM MEASUREMENTS: RIGHT: Peak Systolic Velocity (PSV) cm/sec ----- Right CCA: 68.4 ----- Right ICA: 100.7 ----- Right ECA: 70.3 ICA/CCA ratio: 1.5 RIGHT: End Diastole cm/sec ----- Right CCA: 20.2 ----- Right ICA: 39.1 ----- Right ECA: 16.2 LEFT: Peak Systolic Velocity (PSV) cm/sec ----- Left CCA: 91.9 ----- Left ICA: 67.6 ----- Left ECA: 60.6 ICA/CCA ratio: 0.7 LEFT: End Diastole cm/sec ----- Left CCA: 19.3 ----- Left ICA: 30.9 ----- Left ECA: 14.1 VERTEBRALS (direction of flow): Right Vertebral: Antegrade Left Vertebral: Antegrade Rhythm: Arrhythmia indicated by the high climber. Clinically correlate. Mejía scale images show mild to moderate atherosclerotic plaque and calcification at the left greater than right carotid bulbs. IMPRESSION: No hemodynamically significant internal carotid artery stenosis on either side. Criteria for Assigning % of Stenosis / Diameter reduction (Estimation based on the indirect measurements of the internal carotid artery velocities (ICA PSV). 1. Normal (no stenosis)=ICA PSV < 180 cm/s: ratio < 2.0: ICA EDV<40 cm/s. 2. Less than 50% stenosis=ICA PSV < 180 cm/s: ratio < 2.0: ICA EDV<40 cm/s. 3. 50 to 69% stenosis=ICA PSV of 180 to 230 cm/s: ration 2.0 ? 4.0: ICA EDV 40-100 cm/s. PSV 125-180 cm/sec and ICA/CCA PSV Ratio ? 2.0 is also consistent with 50-69% stenosis 4. Greater than 70% stenosis to near occlusion= ICA PSV > 230 cm/s: ratio > 4.0: ICA EDV > 100 cm/s. 5. Near occlusion= ICA PSV velocities may be low or undetectable: variable ratio and ICA EDV. 6. Total occlusion=unable to detect flow. [facility], , 02/17/2025 10:57 AM
--- NOTE | 2025-02-17 12:28 | CT ---
EXAMINATION TYPE: CT TAVR Planning DATE OF EXAM: 02/17/2025 COMPARISON: CT low-dose lung 04/04/2023, CT adrenal glands 03/22/2020, CT abdomen and pelvis 12/11/2019 CLINICAL INDICATION: Male, 64 years old with history of I35.1 NONRHEUMATIC AORTIC (VALVE) INSUFFICIEN CY; Non rheumatic aortic valve insufficiency TAVR. TECHNIQUE: CT scan of the Neck, chest, abdomen and pelvis is performed with IV contrast; Helical imaging obtaine d through the chest, abdomen and pelvis during arterial phase dynamic administration of radiographic contrast intravenously. MIP imaging performed on a [facility] work station and submitted for review. CONTRAST: 120 mL of Isovue 370. CT DLP: 2228.3 mGycm, Automated exposure control for dose reduction was used. FINDINGS: See report from [facility] regarding preprocedural planning HEART AND PERICARDIUM: Heart is normal in size. There is no pericardial effusion. AV Calcification Severity: Moderate/Severe ARTERIAL VASCULATURE: The aortic arch and thoracic aorta demonstrate a normal course and caliber. Four-vessel aortic arch w ith direct takeoff of the left vertebral artery from the aortic arch. The pulmonary outflow tract jazz ears within normal limits for size. Mild atherosclerotic calcification of the aorta. There is no lisa dence of aortic dissection, aneurysm or acute aortic injury. Great arch vessels patent and normal in course and caliber. There is occlusion of the left internal iliac artery after its origin with dista l reconstitution. There is short segment occlusion of the bilateral common femoral arteries with dist al reconstitution at the bifurcation of the deep and superficial femoral arteries bilaterally. Additi onally there is occlusion of the right superficial femoral artery after its origin. There is high-gra de stenosis versus short segment of occlusion with distal reconstitution of the origin of the right d eep femoral artery. The celiac access, SMA, bilateral single renal arteries, and TANIA are widely paten t. PULMONARY ARTERIAL VASCULATURE: Normal caliber., No evidence for central filling defect. NECK AND THYROID: Partial visualization of mucosal thickening of the inferior bilateral maxillary sin uses. The carotid bifurcations are patent with mild calcified plaque. CHEST: LUNGS: Emphysematous changes are present. LARGE AIRWAYS: Central airways are patent. PLEURAL: No pleural effusion or thickening. No pneumothorax. MEDIASTINUM AND TRACEY: No mediastinal or hilar lymphadenopathy or soft tissue mass. SOFT TISSUES/LYMPH NODES: Unremarkable.Normal. MUSCULOSKELETAL: No acute osseous abnormalities ABDOMEN/PELVIS: Please note arterial phase of the imaging limits detailed evaluation of the solid abdominal organs. ABDOMEN LIVER: Stable peripheral 1.4 cm left hepatic lobe lesion dating back to 2019 and considered benign. R ight hepatic lobe peripherally enhancing 1.6 cm lesion dated back to 2019 considered benign. Probable hemangioma. GALLBLADDER AND BILE DUCTS: Unremarkable. PANCREAS: Unremarkable. SPLEEN: Unremarkable. ADRENAL GLANDS: Left adrenal gland is unremarkable. Stable right adrenal gland 2.6 cm hypodense nodul e most consistent with a lipid rich adenoma. KIDNEYS AND URETERS: No evidence of hydronephrosis or renal calculus. The kidneys enhance symmetrical ly. Simple right renal upper pole 2.9 cm cyst with additional right mid kidney 1.7 cm cyst. No follow -up recommended. PELVIS BLADDER: Unremarkable REPRODUCTIVE: Unremarkable. ABDOMEN & PELVIS STOMACH AND BOWEL: Stomach and duodenum are unremarkable. No focal bowel wall thickening or surroundi ng inflammatory changes. No evidence of bowel obstruction. PERITONEUM/RETROPERITONEUM: No evidence of pneumoperitoneum or free fluid. MUSCULOSKELETAL: No acute osseous abnormalities. Post surgical changes with disc spacer and laminecto my changes at L5-S1. LYMPH NODES: No evidence for lymphadenopathy. SOFT TISSUE/ABDOMINAL WALL: Unremarkable IMPRESSION: 1. Moderate/Severe calcifications of the aortic valve. 2. No acute process. 3. Short segment occlusion of the bilateral common femoral arteries with distal reconstitution. Yash tional occlusion of the right superficial femoral artery just after its origin. High-grade stenosis v ersus occlusion with distal reconstitution of the right deep femoral artery just after its origin. 4. See report from [employer] regarding preprocedural planning [facility], , 02/17/2025 12:26 PM
[2025-02-17 15:37] LABS: Hepatitis A Antibody IgM Nonreactive (Nonreactive); Hepatitis B Core IgM Nonreactive (Nonreactive); Hepatitis B Surface Antigen Nonreactive (Nonreactive); Hepatitis C IgG Antibody Nonreactive (Nonreactive)
[2025-02-17 15:49] LABS: Chol/HDL Ratio 2.08 Ratio
[2025-02-17 15:50] LABS: LDL Cholesterol,Calculated 65.4 mg/dL (0.0-131.0)
[2025-02-17 16:02] LABS: Appearance,Urine Clear (Clear); Bilirubin,Urine Negative (Negative); Blood,Urine Negative (Negative); Color,Urine Yellow (Yellow); Ketones,Urine Trace (Negative); Nitrite,Urine Negative (Negative); PH, Urine 7.5; Specific Gravity,Urine 1.022 (1.001-1.030)
[2025-02-17 16:12] LABS: Bacteria,Urine None Seen (None Seen)
== END | disposition home or self-care (01) ==
LOC: LABWHC1 08:21
PROVIDERS: ATTEND Thoracic Surgery (Cardiothoracic Vascular Surgery)
DX: Z01.818 Encounter for other preprocedural examination (principal); I35.0 Nonrheumatic aortic (valve) stenosis; E87.8 Other disorders of electrolyte and fluid balance, not elsewhere classified; E78.5 Hyperlipidemia, unspecified; E07.9 Disorder of thyroid, unspecified; E11.9 Type 2 diabetes mellitus without complications; N28.9 Disorder of kidney and ureter, unspecified; R58 Hemorrhage, not elsewhere classified; R35.0 Frequency of micturition; R55 Syncope and collapse; Z79.01 Long term (current) use of anticoagulants; Z79.899 Other long term (current) drug therapy
CPT/HCPCS: 94150; 83880; 80061; 80053; 80074; 84443; 83735; 85025; 85610; 85730; 81001; 87086; 83036; 93880; 71275; 36415 ×2; 74174; Q9967

== ENCOUNTER 2025-04-15 05:38 | Inpatient (IN) | payer OTHER ==
[2025-04-15] MEDS ORDERED: SODIUM CHLORIDE 0.9% 500 ML 500 ML INTRAARTER PRN (06:00)
[2025-04-15] MEDS ORDERED: PROTAMINE SULFATE 250 MG in EMPTY BAG 1 BAG IV PRN (06:00)
[2025-04-15] MEDS ORDERED: TRANEXAMIC ACID 2,000 MG in SODIUM CHLORIDE 0.9% 80 ML IV PRN (06:00)
[2025-04-15] MEDS ORDERED: NITROGLYCERIN-D5W PMX 25 MG/250 ML BTL IV PRN (06:00)
[2025-04-15] MEDS ORDERED: ceFAZolin 2 GM in DEXTROSE 5% IN WATER 50 ML IVPB ONE (06:00)
[2025-04-15] MEDS ORDERED: CLEVIDIPINE BUTYRATE 25 MG in EMPTY BAG 1 BAG IV PRN (06:00)
[2025-04-15] MEDS ORDERED: LACTATED RINGERS 1,000 ML IV SCH (06:00)
[2025-04-15] MEDS ORDERED: ELECTROLYTE-A SOLUTION 1,000 ML with POTASSIUM CHLORIDE 100 MEQ, MAGNESIUM SULFATE 16 M... IV PRN (06:00)
[2025-04-15] MEDS ORDERED: INSULIN REGULAR 100 UNIT in SODIUM CHLORIDE 0.9% 100 ML IV PRN (06:00)
[2025-04-15 06:43] LABS: Glucose,Whole Blood 139 mg/dL (70-110)
[2025-04-15] MEDS: METOPROLOL TARTRATE 25 MG TAB PO ONE (06:46)
[2025-04-15] MEDS: CLOPIDOGREL 75 MG TAB PO ONE (06:46)
[2025-04-15] MEDS: ATORVASTATIN 10 MG TAB PO ONE (06:46)
[2025-04-15] MEDS: ASPIRIN 325 MG TAB PO ONE (06:47)
[2025-04-15] MEDS: IV FLUID CONTINUATION 1,000 ML IV ONE (07:07)
[2025-04-15] MEDS ORDERED: LIDOCAINE 1% INJ 10MG/ML (20 ML MDV) ONE (07:42)
[2025-04-15] MEDS ORDERED: PROTAMINE SULFATE 10 MG/ML 5 ML VIAL ONE (07:42)
[2025-04-15] MEDS ORDERED: fentaNYL (PF) 50 MCG/ML 2 ML AMP ONE (07:42)
[2025-04-15] MEDS ORDERED: HEPARIN SODIUM,PORCINE 5,000 UNIT/ML 1 ML VIAL ONE (07:42)
[2025-04-15] MEDS ORDERED: ROCURONIUM 10 MG/ML (5 ML VIAL) IV ONE (07:42)
[2025-04-15] MEDS ORDERED: SUGAMMADEX SODIUM 100 MG/ML SYR IV ONE (07:42)
[2025-04-15] MEDS ORDERED: PROPOFOL 10 MG/ML 20 ML VIAL IV ONE (07:42)
[2025-04-15] MEDS ORDERED: SUCCINYLCHOLINE CHLORIDE 200 MG/10 ML VIAL IV ONE (07:42)
[2025-04-15] MEDS ORDERED: PHENYLEPHRINE-0.9% NACL SYG 1,000 MCG/10 ML SYRINGE ONE (07:42)
[2025-04-15] MEDS: HEPARIN SODIUM,PORCINE 10,000 UNIT in SODIUM CHLORIDE 0.9% 1,000 ML IRRIGATION ONE (07:47)
[2025-04-15] MEDS: HEPARIN SODIUM,PORCINE (1 ML) 2,500 UNIT in SODIUM CHLORIDE 0.9% 250 ML IRRIGATION ONE (07:47)
[2025-04-15] MEDS: VERAPAMIL SYRINGE (5 MG/10 ML) INTRAARTER ONE (09:24)
[2025-04-15] MEDS: IOPAMIDOL-370 100ML BTL INJ ONE ×2 (10:07)
[2025-04-15 10:41] LABS: Glucose,Whole Blood 186 mg/dL (70-110)
--- NOTE | 2025-04-15 10:48 | P.OP ---
Description of Procedure: Transcatheter Aoritc Valve Replacement Operative report PROCEDURE PERFORMED: 1. Percutaneous Aortic Valve Implantation using a 29 mm Evolut-FX Pro+. 2. Transesophageal echocardiography (performed by anesthesia) 3. Ultrasound guided access and repair of right femoral artery access site by Perclose closure device. 4. Placement of temporary pacemaker wire. 5. Aortic root angiography 6. Right femoral artery balloon tamponade with a 6.0 x 60mm balloon 7. IVUS right external iliac artery INDICATIONS: 1. 64 year-old with a history of severe symptomatic aortic valve stenosis. PERFORMING PHYSICIANS: 1. Tomi Pablo DO Interventional Cardiology 2. Yosi Kelley MD Interventional Cardiology. 3. Chema Gillis MD, Cardiothoracic Surgeon. SEDATION: General anesthesia provided by anesthesia, see separate note APPROACH: Right femoral artery via percutaneous approach PROCEDURE DESCRIPTION: The patient was discussed at valve clinic with multidisciplinary approach with cardiothoracic surgeon as well as paperhanger apprentice and thought better treated with TAVR. Risks, benefits, and alternatives of the procedure had been explained to t he patient who understood the risks and agreed to proceed. After consents were obtained, patient was brought to the transcatheter aortic valve implantation room in the cardiac asphalt plant laborer and general anesthesia was provided by the anesthesiologist (see separate report). CTA had shown bilateral common femoral artery occlusion as well as diffuse disease of the bilateral common iliac arteries. Risks and benefits have been discussed with patient regarding axis somewhat higher segment of the femoral arteries with still some diffuse disease and likely need for balloon tamponade. Patient had been agreeable. Patient was high risk secondary to his severe COPD however felt should be able to tolerate general anesthesia. Once full body sterile prep was performed, right subclavian venous access was obtained and a temporary pacemaker was screwed in, performed by cardiothoracic surgery. Pacing threshholds were checked and deemed appropriate. Next the left femoral artery was accessed using a modified Seldinger technique, ultrasound guidance and micropuncture technique. The wire was unable to easily be passed and therefore left femoral access was abandoned. Using ultrasound guidance left radial access was able to be obtained. The right femoral artery was accessed using modified Seldinger technique, micropuncture technique and under direct ultrasound guidance. Femoral angiogram was done showing access in the upper common femoral artery into the external iliac however more diffuse disease of the common femoral artery. A 6Fr sheath was placed. Decision was made to still proceed with femoral access given risk of alternative axis, severe COPD with anticipated need for balloon angioplasty and felt better able to achieve balloon angioplasty with a somewhat higher stick. A rim catheter was used to assess the left iliac artery and possibility of left femoral axis however also appeared diffusely diseased of the external iliac and did show small extravasation from the prior left common femoral arteriotomy. Therefore pressure was held at the left femoral site. Intravascular ultrasound was performed of the right external iliac artery which did show diffuse disease however not heavily calcified and lowest diameter approximately 5.5 mm. Therefore decision made to proceed with right femoral access. Next preclose technique was performed using a Perclose. Next a 0.035 Safari wire was placed in the Aorta via a pigtail catheter. Over that the arteriotomy was serially dilated and a 14 Fr [place] sheath was placed. Next a 6F- AL1 catheter was advanced over a wire to the aortic root. A straight wire was advanced through the catheter and used to cross the severely stenotic valve. The AL1 was then exchanged for a 6Fr pigtail catheter and pressure measurements were obtained. The 0.035 Safari wire was then positioned in the apex. Next a 29 mm Evolut-FX was advanced. The valve was then positioned across the aortic valve and confirmed with aortic root angiography. The valve was initially partially deployed however needed repositioning twice and therefore was recaptured. The valve was then deployed in proper position using slow deployment and with rapid pacing in conjuncture with aortic root angiography and CHAD. The delivery system was withdrawn back into the arch and an aortic root injection in conjunction with CHAD demonstrated a satisfactory result. There was trace para valvular leak. There was no evidence of any other significant abnormalities. The preclose Perclose was then deployed in the right femoral artery however still some bleeding from the right femoral site after deployment and therefore an 8 Indian Angio-Seal was placed. The 8 Indian Angio-Seal did not internet marketer into the arteriotomy and was not deployed. Therefore balloon tamponade was performed with a 6.0 x 60mm balloon from the left radial approach for 10 minutes. Angiogram was performed through the balloon which showed no extravasation and hemostasis achieved. The balloon was then advanced in the left common iliac artery and the left femoral angiogram was performed that showed no contrast leak. A TR band was placed on the left radial artery with hemostasis achieved. The temporary venous pacemaker was sutured in place. Upon waking patient from anesthesia patient had significant movement and some leak from the right femoral site and therefore a FemoStop was placed. The patient was then transported to the ICU in hemodynamically stable condition, requiring no pressor support. COMPLICATIONS: None CONCLUSION: 1. Implantaion of 29 mm Evolut-FX transcatheter aortic valve via right femoral approach under CHAD and fluoro guidance with trace sukumar-valvular aortic regurgitation. 2. Placement of temporary pacemaker wire 3. Aortic Root Aortogram. 4. S/p balloon tamponade right femoral artery with a 6.0 x 60mm balloon RECOMMENDATIONS: The patient will be monitored in the ICU for hemodynamic and electrical stability.
[2025-04-15] MEDS ORDERED: NALOXONE 0.4 MG/ML 1 ML VIAL IV PRN (11:02)
[2025-04-15] MEDS ORDERED: Potassium Replacement Protocol 1 EACH MISC MISCELLANE PRN (11:09)
[2025-04-15] MEDS ORDERED: NON FORMULARY DRUG (Albuterol Inhaler 90 MCG Puff) INHALATION PRN (11:09)
[2025-04-15] MEDS ORDERED: CALCIUM GLUCONATE IN NACL 2 GM in SALINE 1 100ML.BAG IVPB PRN (11:09)
[2025-04-15] MEDS ORDERED: ONDANSETRON 4 MG/2 ML VIAL IVP PRN (11:09)
[2025-04-15] MEDS ORDERED: ACETAMINOPHEN TAB 500 MG TAB PO PRN (11:09)
[2025-04-15] MEDS ORDERED: Magnesium Replacement Protocol 1 EACH MISC MISCELLANE PRN (11:09)
[2025-04-15] MEDS ORDERED: DEXTROSE 50% SYRINGE 50 ML IVP PRN ×2 (11:09)
--- NOTE | 2025-04-15 11:10 | P.OP ---
Date of Procedure: 04/15/25 Preoperative Diagnosis: Severe calcific aortic stenosis, severe peripheral vascular disease Postoperative Diagnosis: Same Procedure(s) Performed: Transcatheter aortic valve replacement with 29 mm [employer] evolute flex transcatheter aortic valve prosthesis Implants: 29 mm [employer] evolute flex valve prosthesis Anesthesia: GETA Surgeon: Chema Gillis (Cardiovascular surgeon) Auto Damage Appraiser #1: Tomi Pablo (First senior stock plan administrator) Auto Damage Appraiser #2: Yosi Kelley (Second senior stock plan administrator) Estimated Blood Loss (ml): 25 Pathology: none sent Condition: critical Disposition: PACU Indications for Procedure: 64-year-old male with critical symptomatic aortic stenosis. He also has severe chronic obstructive pulmonary disease and severe peripheral vascular disease. CT scan demonstrated bilateral femoral arterial occlusions with occlusion of the left femoral artery at the level of the inguinal ligament and the right at the mid femoral head. Plan was for transcatheter valve replacement via the right femoral approach with monitoring access through a radial artery. Operative Findings: We were able to access the right femoral artery at the level of the inguinal ligament. Attempts to access the left femoral artery were unsuccessful. We were able to access the left radial artery. The valve was crossed with minimal difficulty. It was heavily calcified. [employer] evolute valve was deployed with deployment levels of 2 and 2 and there was no significant paravalvular leak and the valve prosthesis appeared to be very well-expanded. Successful closure of the right femoral artery was achieved with the Perclose and balloon tamponade and completion angiography of both the right and left iliofemoral system showed no change from preoperatively. Description of Procedure: Patient was brought to the cardiac catheterization laboratory and placed supine on the table. Right brachial arterial line had been placed in the preop holding area but was lost in transport. General anesthesia was induced and the anterior torso left wrist and bilateral groins were sterilely prepped and draped. Bilateral femoral access was attempted under ultrasound guidance and was successful on the right with placement of a 7 [place] sheath. Single Perclose was placed and the right femoral access was increased to 8 [place]ian. Right subclavian vein was easily accessed and guidewire threaded into the right atrium. Introducer and dilator were placed and through the introducer screw-in ventricular lead was manipulated into the apex of the right ventricle and screwed in. Pacing thresholds were excellent. It was secured at its exit from the skin with 2-0 silk sutures. Left radial access was obtained under ultrasound guidance and a 6 [place]ib[place] sheath was placed. Pigtail catheter was advanced through this into the noncoronary sinus of Valsalva. 8 Namibian sheath was exchanged for a 14 [place]ibian sheath over stiff wire in the right femoral artery. This proceeded uneventfully. The patient was systemically heparinized and ACT's maintained greater than 250. The aortic valve was crossed under fluoroscopic guidance and a pigtail placed in the apex of the ventricle. Safari wire was then placed in the apex of the ventricle. 29 mm [employer] evolute flex valve was loaded on the back table and brought up and checked under fluoroscopy. We had to reload the valve. Once we were satisfied with the valve loading, the 14 [place]ib[place] sheath was exchanged for the valve loading system and this was advanced into the ascending aorta under fluoroscopic guidance. Safari wire was maintained in the apex of the ventricle. The valve was crossed and deployed under rapid ventricular pacing with deployment levels of 2 and 2. Valve expansion appeared excellent. CHAD demonstrated no paravalvular leak with good placement of the valve. Valve deployment system was removed and exchanged for 14 [place]ib[place] sheath. Heparin was reversed with protamine. 14 [place]ibian sheath was removed and Perclose device deployed. We attempted to place a Angio-Seal on top of this however this failed. 6 [place]ibian balloon was advanced through the left radial access and down across the right iliac artery into the femoral artery and inflated. After prolonged inflation, angiography demonstrated no leak and no significant change in the appearance of the blood flow to the right lower extremity from preoperatively. Completion angiography was also performed on the left and again demonstrated no change from preoperatively. Left radial arterial access was now removed and a radial band applied. Patient was transferred to recovery for extubation.
[2025-04-15 11:24] LABS: ABG Base Excess 4.9 mmol/L; ABG HCO3 31 mmol/L (21-25); ABG PCO2 55 mmHg (35-45); ABG PH 7.37 (7.35-7.45); ABG PO2 90 mmHg (83-108); ABG TCO2 33 mmol/L (19-24)
[2025-04-15 11:26] LABS: Allen Test Performed? NO
[2025-04-15 11:31] LABS: Basophils # (A) 0.06 10*3/uL (0.00-0.10); Basophils % (A) 0.4 %; Eosinophils # (A) 0.06 10*3/uL (0.04-0.35); Eosinophils % (A) 0.4 %; HCT 33.7 % (39.6-50.0); Lymphocytes # (A) 1.87 10*3/uL (0.90-5.00); Lymphocytes % (A) 13.2 %; MCH 28.5 pg (27.0-32.0); MCHC 32.6 g/dL (32.0-37.0); MCV 87.3 fL (80.0-97.0); Mean Platelet Volume 9.1 fL (9.5-12.2); Monocytes # (A) 1.26 10*3/uL (0.20-1.00); Monocytes % (A) 8.9 %; Neutrophils # (A) 10.79 10*3/uL (1.80-7.70); Neutrophils % (A) 75.9 %; Platelet Count 276 10*3/uL (140-440); RBC 3.86 10*6/uL (4.40-5.60); RDW 13.6 % (11.5-14.5); WBC 14.21 10*3/uL (4.50-10.00)
[2025-04-15 11:56] LABS: African American GFR (CKD) >90 (>60 ml/min/1.73 sqM); Anion Gap 7 mmol/L; Blood Urea Nitrogen 16 mg/dL (9-20); Calcium 8.6 mg/dL (8.4-10.2); Carbon Dioxide 31 mmol/L (22-30); Chloride 91 mmol/L (98-107); Glucose 203 mg/dL (74-99); Magnesium 1.8 mg/dL (1.6-2.3); Non-African American GFR(CKD) >90 (>60 ml/min/1.73 sqM); Potassium 4.6 mmol/L (3.5-5.1); Sodium 129 mmol/L (137-145)
[2025-04-15] MEDS: ALBUTEROL NEBULIZED 2.5 MG/3 ML INHALATION PRN (11:57)
[2025-04-15] MEDS: SODIUM CHLORIDE 0.9% 500 ML 500 ML IV ONE (12:30)
--- NOTE | 2025-04-15 13:21 | XR ---
EXAMINATION TYPE: XR chest 1V portable DATE OF EXAM: 04/15/2025 1:11 PM COMPARISON: 12/11/2019 CLINICAL INDICATION: Male, 64 years old with history of Post Operative Cardiac Surgery, TECHNIQUE: XR chest 1V portable view(s) obtained. FINDINGS: The heart size is normal. The pulmonary vasculature is normal. The lungs are clear. There is hyperinflation. IMPRESSION: 1. No acute pulmonary process. [facility], , 04/15/2025 1:19 PM
[2025-04-15] MEDS: NOREPINEPHRINE 8 MG in SODIUM CHLORIDE 0.9% 250 ML IV SCH (13:26)
[2025-04-15] MEDS: LACTATED RINGERS 1,000 ML IV SCH (13:28)
[2025-04-15] MEDS: INSULIN LISPRO (HumaLOG) 100 UNIT/ML 10 mL VL SQ SCH (13:28)
--- NOTE | 2025-04-15 13:50 | CA ---
Transthoracic Echo Report Name: Aldo Mcguire Age: 64 Gender: M : 1960 Exam Date: 04/15/2025 13:11 Exam Location: [facility] Ht (in): 70 Wt (lb): 191 Ordering Physician: Mera Anne Attending/Referring Phys: [id number], Omid Delivery Driver/Supervisor Nai Hickman, FER Procedure CPT: Indications: r/o pericardial effusion, tamponade Cardiac Hx: TAVR Technical Quality: Fair Contrast 1: Total Dose (mL): Contrast 2: Total Dose (mL): MEASUREMENTS (Male / Female) Normal Values 2D ECHO RV Internal Dim ED PLAX 3.4 cm DOPPLER AV Peak Velocity 161.2 cm/s AV Peak Gradient 10.4 mmHg AV Mean Velocity 90.1 cm/s AV Mean Gradient 4.1 mmHg AV Velocity Time Integral 24.5 cm FINDINGS Left Ventricle Left ventricular ejection fraction is estimated at 60-65 %. No obvious regional wall motion abnormalities. Right Ventricle Normal right ventricular size and function. Right Atrium Left Atrium Mitral Valve Aortic Valve TAVR valve was noted Tricuspid Valve Pulmonic Valve Pericardium No pericardial effusion. No tamponade Aorta CONCLUSIONS Normal ventricular size and systolic function TAVR valve was noted No pericardial effusion Previewed by: Dr. Gladis Del Toro MD (Electronically Signed) Final Date: 15 April 2025 13:49
--- NOTE | 2025-04-15 14:31 | P.CNPUL ---
History of Present Illness Consult date: 04/15/25 Requesting physician: Chema Gillis Reason for consult: other (ICU management) Chief complaint: Severe symptomatic aortic stenosis History of present illness: This is a 64-year-old white male with critical symptomatic aortic stenosis, history of underlying severe COPD and severe peripheral vascular disease, patient had previous occlusion of the left femoral artery at the level of the inguinal ligament and right at the mid femoral head, patient is now status post transcatheter aortic valve replacement with 29 mm Medtronic evolute flex transcatheter aortic valve prosthesis. Patient is postoperative day #0, brought up to the ICU on BiPAP 12/5/50%, patient does not seem to be in distress, blood pressure is soft with blood pressure of 81/52 with a mean arterial pressure of 65. Patient is receiving fluid/fluid boluses as ordered by cardiothoracic surgery. His last cardiac catheterization was on 02/04/2025, showed normal coronary arteries, severe aortic stenosis with mean aortic gradient of 41. And slightly elevated right-sided filling pressures. CHAD , showed tricuspid aortic valve with severe aortic stenosis. Review of Systems REVIEW OF SYSTEMS: CONSTITUTIONAL: Negative. EYES: Negative. ENT: Negative. CARDIAC: Negative. PULMONARY: Dyspnea on exertion GI: Negative. GENITOURINARY: Negative. MUSCULOSKELETAL: Negative. SKIN: Negative. NEUROPSYCH: Negative. ENDOCRINE: Negative. HEMATOLOGIC: Negative. Past Medical History Past Medical History: COPD, Diabetes Mellitus, GERD/Reflux, Hyperlipidemia, Hypertension, Sleep Apnea/CPAP/BIPAP Additional Past Medical History / Comment(s): aortic valve stenosis,bipap with O2 @ 3L,uses O2 @ 2 L nc prn during the day-Stg 4 COPD-unable to lay flat on back. Chronic back pain, hx of jaw fx 1978, History of Any Multi-Drug Resistant Organisms: None Reported Past Surgical History: Back Surgery, Heart Catheterization Additional Past Surgical History / Comment(s): lumbar surgery ; pain procedures, COLONOSCOPY, BRONCHOSCOPY Past Anesthesia/Blood Transfusion Reactions: No Reported Reaction Additional Past Anesthesia/Blood Transfusion Reaction / Comment(s): no hx blood transfusion Smoking Status: Current every day smoker - Past Family History Mother Family Medical History: No Reported History Father Family Medical History: COPD, Coronary Artery Disease (CAD) Additional Family Medical History / Comment(s): CABG. peripheral vascular disease Medications and Allergies Home Medications Medication Instructions Recorded Confirmed Type Simvastatin 80 mg PO HS 08/14/18 04/08/25 History Lisinopril-Hctz 20-25 mg 1 tab PO QAM 09/05/18 04/08/25 History [Zestoretic 20-] Omeprazole 40 mg PO QAM 03/14/19 04/15/25 History metFORMIN HCL [Glucophage] 1,000 mg PO BID 03/14/19 04/15/25 History Lidocaine 4% Cream [Lmx 4] 1 applic TOPICAL BID PRN 12/11/19 04/08/25 History Aspirin 81 mg PO DAILY chew 12/14/19 04/15/25 Rx Albuterol Inhaler [Ventolin Hfa 1 puff INHALATION QID PRN 09/01/24 04/15/25 History Inhaler] Albuterol Nebulized [Ventolin 1 applic INHALATION QID 09/01/24 04/15/25 History Nebulized] Insulin Glargine,Hum.rec.anlog 25 - 30 units SQ HS 09/01/24 04/15/25 History [Lantus Solostar Pen] Mometasone/Formoterol [Dulera 100 1 puff INHALATION BID 09/01/24 04/15/25 His tory Mcg-5 Mcg Inhaler] SITagliptin [Sitagliptin] 100 mg PO QAM 09/01/24 04/08/25 History predniSONE 15 mg PO QAM 09/01/24 04/15/25 History Furosemide [Lasix] 40 mg PO DAILY 02/04/25 04/08/25 History Potassium Chloride [Klor-Con M20] 20 meq PO DAILY 02/04/25 04/08/25 History Ascorbic Acid [Vitamin C] 1,000 mg PO BID 04/08/25 04/08/25 History Ipratropium/Albuter 20-100Mcg 1 puff INHALATION BID 04/08/25 04/15/25 History [Combivent Respimat 20-100Mcg Inhaler] Mv-Min/Folic/K1/Lycopen/Lutein 1 each PO DAILY 04/08/25 04/08/25 History [Centrum Silver Men Tablet] Zinc Gluconate [Zinc] 50 mg PO DAILY 04/08/25 04/08/25 History traMADol HCL 50 mg PO Q6H PRN 04/08/25 04/08/25 History Allergies Allergy/AdvReac Type Severity Reaction Status Date / Time empagliflozin Allergy Itching Verified 04/15/25 06:17 glipizide Allergy increased Verified 04/15/25 06:17 lactic acid bupropion [From Wellbutrin] AdvReac Nausea Verified 04/15/25 06:17 codeine AdvReac Nausea Verified 04/15/25 06:17 gabapentin AdvReac Nausea & Verified 04/15/25 06:17 Vomiting pregabalin AdvReac Nausea Verified 04/15/25 06:17 Physical Exam Vitals: Vital Signs Temp Pulse Pulse Resp BP BP Pulse Ox 04/15/25 14:00 78 10 L 97 04/15/25 13:45 79 17 98 04/15/25 13:30 80 21 81/52 97 04/15/25 13:15 80 20 78/45 98 04/15/25 13:00 86 15 80/53 86 L 04/15/25 12:45 79 10 L 63/48 92 L 04/15/25 12:30 80 16 77/50 94 L 04/15/25 12:15 79 7 L 77/52 95 04/15/25 12:00 97.8 F 77 11 L 79/53 95 04/15/25 11:57 79 04/15/25 11:45 74 20 75/47 93 L 04/15/25 11:30 75 21 80/51 94 L 04/15/25 11:15 79 19 94 L 04/15/25 11:00 81 18 91/61 81 L 04/15/25 10:48 80 13 95 04/15/25 10:42 04/15/25 06:58 98.4 F 90 18 114/83 98 FiO2 04/15/25 14:00 04/15/25 13:45 04/15/25 13:30 04/15/25 13:15 04/15/25 13:00 04/15/25 12:45 04/15/25 12:30 04/15/25 12:15 04/15/25 12:00 04/15/25 11:57 30 04/15/25 11:45 04/15/25 11:30 04/15/25 11:15 04/15/25 11:00 04/15/25 10:48 04/15/25 10:42 30 04/15/25 06:58 Intake and Output 04/14/25 04/15/25 04/15/25 22:59 06:59 14:59 Intake Total 1453.784 Output Total 0 Balance 1453.784 Intake: IV 1450 LR 1400 Intake, IV Titration 3.784 Amount Norepinephrine 8 mg In 3.784 Sodium Chloride 0.9% 250 ml @ 0.03 MCG/KG/MIN 5. 045 mls/hr IV .Q24H [facility] Rx#:[id number] Output: Urine 0 Other: Weight 86.9 kg ABP, PAP, CO, CI - Last 8 Hours Arterial Blood Pressure 58/50 Arterial Blood Pressure 64/50 Arterial Blood Pressure 72/46 Arterial Blood Pressure 75/47 Arterial Blood Pressure 81/44 Arterial Blood Pressure 64/41 Arterial Blood Pressure 93/55 General: Reveals 64-year-old white male on BiPAP, not in any distress. Skin: Skin is warm and dry and no rashes or lesions are noted. Eye: Pupils are equal, round and reactive to light, extra-ocular movements are intact; there is normal conjunctiva bilaterally. Ears, nose, mouth and throat: There are moist mucous membranes and no oral lesions. Neck: The neck is supple, there is no tenderness or JVD. Cardiovascular: Distant S1-S2, 2/6 systolic murmur over the whole precordium Respiratory: Diminished breath sound bilaterally no rhonchi no wheezes Gastrointestinal: Soft, non-distended, non-tender abdomen without masses or organomegaly noted. There is no rebound or guarding present. Bowel sounds are unremarkable. Back: There is no tenderness to palpation in the midline. There is no obvious deformity. Musculoskeletal: Normal ROM, no tenderness, There is no pedal edema. There is no calf tenderness or swelling. No cords were appreciated. Neurological: Alert oriented x 3 no gross focal deficit Psychiatric: Normal mood, affect and no mental status examination. Results - Laboratory Findings CBC and BMP: 04/15/25 11:02 04/15/25 11:02 ABG ABG pH 7.37 (7.35-7.45) 04/15/25 11:22 ABG pCO2 55 mmHg (35-45) H 04/15/25 11:22 ABG pO2 90 mmHg (83-108) 04/15/25 11:22 ABG O2 Saturation 96.0 % (94-97) 04/15/25 11:22 Abnormal lab findings: Abnormal Labs 04/15/25 04/15/25 04/15/25 06:39 10:40 11:02 WBC 14.21 H RBC 3.86 L Hgb 11.0 L D Hct 33.7 L MPV 9.1 L Immature Gran # 0.17 H Neutrophils # 10.79 H Monocytes # 1.26 H ABG pCO2 ABG HCO3 ABG Total CO2 Hemoglobin Sodium Chloride Carbon Dioxide Glucose POC Glucose (mg/dL) 139 H 186 H 04/15/25 04/15/25 11:02 11:22 WBC RBC Hgb Hct MPV Immature Gran # Neutrophils # Monocytes # ABG pCO2 55 H ABG HCO3 31 H ABG Total CO2 33 H Hemoglobin 11.0 L Sodium 129 L Chloride 91 L Carbon Dioxide 31 H Glucose 203 H POC Glucose (mg/dL) - Diagnostic Findings Chest x-ray: image reviewed (Chest x-ray postoperatively showed no evidence of active disease) Assessment and Plan Assessment: Impression:Severe calcific aortic stenosis, severe peripheral vascular disease status postTranscatheter aortic valve replacement with 29 mm Medtronic evolute flex transcatheter aortic valve prosthesis, postoperative day #0 Dyspnea on exertion secondary to above Type 2 diabetes Benign essential hypertension Dyslipidemia Family history of coronary artery disease Chronic obstructive pulmonary disease, on home O2 Tobacco dependence syndrome Recommendation: Continue fluid boluses Continue to monitor in the ICU Continue BiPAP Resume home meds Chest x-ray findings are reassuring Incentive spirometry Early ambulation Will continue to follow Time with Patient: Greater than 30
[2025-04-15 14:52] LABS: HCT 32.5 % (39.6-50.0); HGB 10.7 g/dL (13.0-17.0); MCH 28.6 pg (27.0-32.0); MCHC 32.9 g/dL (32.0-37.0); MCV 86.9 fL (80.0-97.0); Mean Platelet Volume 9.3 fL (9.5-12.2); Platelet Count 271 10*3/uL (140-440); RBC 3.74 10*6/uL (4.40-5.60); RDW 13.8 % (11.5-14.5); WBC 20.97 10*3/uL (4.50-10.00)
[2025-04-15] MEDS: ceFAZolin 2 GM in DEXTROSE 5% IN WATER 50 ML IVPB SCH (15:41)
[2025-04-15] MEDS: traMADol 50 MG TAB PO PRN (15:41)
--- NOTE | 2025-04-15 17:05 | P.ANPRN ---
Procedure Note - Anesthesia - CHAD Intraop Pre Bypass CHAD Intraop - Anesthesia Date of Procedure: 04/15/25 Pre-operative Diagnosis: Post-operative Diagnosis: Surgeon: Chema Gillis Ejection Fraction: Normal Regional Wall Motion Abnormalities: None Left Ventricle Hypertrophy: Yes R. Ventricle Function: Normal Anatomy: Trileaflet Aortic Stenosis: Severe Aortic Regurgitation: Moderate Mitral Stenosis: None Mitral Regurgitation: Mild Tricuspid Stenosis: None Tricuspid Regurgitation: Mild Pulmonic Stenosis: None Pulmonic Regurgitation: Trace R. Atrial Dilation: No R. Atrial PFO: No L. Atrial Dilation: Yes Aortic Calcification: Severe Plural Effusion: None (Max velocity is2.7 m/s, Max gradient is 29 mmHg, min 21 mmHg)
--- NOTE | 2025-04-15 17:06 | P.ANPRN ---
Procedure Note - Anesthesia - CHAD Intraop Post Bypass CHAD Intraop Post Bypass Procedure Performed: TAVR Ejection Fraction: Normal Regional Wall Motion Abnormalities: None R. Ventricle Function: Normal Aortic Valve: Max velocity is 2.4 m/s, max gradient is 23 mmHg, mean is 10 mmHg Tricuspid: Unchanged Pulmonic: Unchanged Aortic Dissection: No
[2025-04-15 17:07] LABS: Glucose,Whole Blood 205 mg/dL (70-110)
[2025-04-15 19:53] LABS: Glucose,Whole Blood 228 mg/dL (70-110)
[2025-04-15] MEDS: IPRATROPIUM-ALBUTEROL 3 ML NEB INHALATION SCH (20:14)
[2025-04-15] MEDS: SYMBICORT 80-4.5 MCG INHALER INHALATION SCH (20:15)
[2025-04-15] MEDS: SENNOSIDES-DOCUSATE SODIUM 1 EACH TAB PO SCH (21:06)
[2025-04-15] MEDS: ATORVASTATIN 40 MG TAB PO SCH (21:06)
[2025-04-15] MEDS: ASCORBIC ACID 500 MG TAB PO SCH (21:06)
[2025-04-16] MEDS: HEPARIN SODIUM,PORCINE 5,000 UNIT/ML 1 ML VIAL SQ SCH (00:55)
[2025-04-16] MEDS: ALPRAZolam 0.25 MG TAB PO STA (01:20)
[2025-04-16 06:17] LABS: Basophils # (A) 0.04 10*3/uL (0.00-0.10); Basophils % (A) 0.3 %; HCT 26.9 % (39.6-50.0); Lymphocytes # (A) 2.06 10*3/uL (0.90-5.00); Lymphocytes % (A) 13.3 %; MCH 28.5 pg (27.0-32.0); MCHC 33.5 g/dL (32.0-37.0); MCV 85.1 fL (80.0-97.0); Mean Platelet Volume 9.4 fL (9.5-12.2); Monocytes # (A) 1.69 10*3/uL (0.20-1.00); Monocytes % (A) 10.9 %; Neutrophils # (A) 11.58 10*3/uL (1.80-7.70); Neutrophils % (A) 74.9 %; Platelet Count 218 10*3/uL (140-440); RBC 3.16 10*6/uL (4.40-5.60); RDW 13.8 % (11.5-14.5); WBC 15.47 10*3/uL (4.50-10.00)
[2025-04-16 06:29] LABS: ALT 24 U/L (4-49); AST 38 U/L (17-59); African American GFR (CKD) >90 (>60 ml/min/1.73 sqM); Albumin 3.4 g/dL (3.5-5.0); Alkaline Phosphatase 41 U/L (38-126); Anion Gap 7 mmol/L; Blood Urea Nitrogen 17 mg/dL (9-20); Carbon Dioxide 32 mmol/L (22-30); Chloride 87 mmol/L (98-107); Glucose 179 mg/dL (74-99); Magnesium 1.8 mg/dL (1.6-2.3); Non-African American GFR(CKD) >90 (>60 ml/min/1.73 sqM); Potassium 4.5 mmol/L (3.5-5.1); Sodium 126 mmol/L (137-145); Total Bilirubin 0.5 mg/dL (0.2-1.3); Total Protein 5.3 g/dL (6.3-8.2)
[2025-04-16 07:01] LABS: Glucose,Whole Blood 209 mg/dL (70-110)
[2025-04-16] MEDS: LINAGLIPTIN 5 MG TABLET PO SCH (07:57)
[2025-04-16] MEDS: FUROSEMIDE 40 MG TAB PO SCH (07:57)
[2025-04-16] MEDS: ASPIRIN 81 MG PO SCH (07:57)
[2025-04-16] MEDS: PANTOPRAZOLE 40 MG/10 ML VIAL IV SCH (07:57)
[2025-04-16] MEDS: predniSONE 5 MG TAB PO SCH (07:58)
[2025-04-16] MEDS: VIT A,C & E-LUTEIN-MINERALS 1 EACH TAB PO SCH (07:58)
[2025-04-16] MEDS: POTASSIUM CHLORIDE ER 20 MEQ TAB.ER PO SCH (07:58)
--- NOTE | 2025-04-16 08:13 | XR ---
EXAMINATION TYPE: XR chest 1V portable DATE OF EXAM: 04/16/2025 6:35 AM COMPARISON: 04/15/2025 CLINICAL INDICATION: Male, 64 years old with history of Post Operative Cardiac Surgery, TECHNIQUE: XR chest 1V portable view(s) obtained. FINDINGS: The heart size is normal. The pulmonary vasculature is normal. The lungs are clear. IMPRESSION: 1. No acute pulmonary process. [facility], , 04/16/2025 8:11 AM
[2025-04-16 08:16] VITALS: TEMP 98.4
[2025-04-16] MEDS ORDERED: LISINOPRIL-HCTZ 20-25 MG 1 EACH TAB PO SCH (09:00)
[2025-04-16] MEDS ORDERED: CLOPIDOGREL 75 MG TAB PO SCH (09:00)
[2025-04-16] MEDS ORDERED: bisacodyL 10 MG SUPP RECTAL PRN (09:00)
[2025-04-16] MEDS ORDERED: MAGNESIUM HYDROXIDE 2,400 MG/30 ML CUP PO PRN (09:00)
[2025-04-16] MEDS ORDERED: NON FORMULARY DRUG (Omeprazole [Omeprazole] 40 MG Capsule.Dr) PO SCH (09:00)
[2025-04-16] MEDS: ZINC SULFATE 220 MG CAP PO SCH (09:40)
[2025-04-16 10:23] VITALS: BMI 28.9
[2025-04-16 11:43] LABS: Glucose,Whole Blood 268 mg/dL (70-110)
--- NOTE | 2025-04-16 12:04 | CA ---
Transthoracic Echo Report Name: Aldo Mcguire Age: 64 Gender: M : 1960 Exam Date: 04/16/2025 08:00 Exam Location: [facility] Ht (in): 70 Wt (lb): 191 Ordering Physician: Mera Anne Attending/Referring Phys: [id number], Omid Product Merchandiser Crissy Long, RDHANDY Procedure CPT: Indications: post TAVR Cardiac Hx: Pacemaker Technical Quality: Fair Contrast 1: Total Dose (mL): Contrast 2: Total Dose (mL): MEASUREMENTS (Male / Female) Normal Values 2D ECHO LV Diastolic Diameter PLAX 3.2 cm 4.2 - 5.9 / 3.9 - 5.3 cm LV Systolic Diameter PLAX 2.3 cm IVS Diastolic Thickness 1.2 cm 0.6 - 1.0 / 0.6 - 0.9 cm LVPW Diastolic Thickness 1.2 cm 0.6 - 1.0 / 0.6 - 0.9 cm LV Relative Wall Thickness 0.8 RV Internal Dim ED PLAX 2.7 cm LVOT Diameter 1.8 cm LA Systolic Diameter LX 3.8 cm 3.0 - 4.0 / 2.7 - 3.8 cm LV Diastolic Volume MOD 4C 76.8 cm??? LV Systolic Volume MOD 4C 20.1 cm??? LV Ejection Fraction MOD 4C 73.8 % LV Cardiac Index MOD 4C 2663.8 cm???/min???m??? LV Diastolic Length 4C 7.7 cm LV Systolic Length 4C 6.4 cm M-MODE Aortic Root Diameter MM 2.4 cm LA Systolic Diameter MM 3.0 cm LA Ao Ratio MM 1.2 DOPPLER AV Peak Velocity 267.2 cm/s AV Peak Gradient 28.6 mmHg AV Mean Velocity 171.5 cm/s AV Mean Gradient 14.7 mmHg AV Velocity Time Integral 36.7 cm LVOT Peak Velocity 142.2 cm/s LVOT Peak Gradient 8.1 mmHg LVOT Velocity Time Integral 25.1 cm LVOT Stroke Volume 65.7 cm??? LVOT Stroke Volume Index 32.1 ml/m??? LVOT Cardiac Index 3089.8 cm???/min???m??? AV Area Cont Eq vti 1.8 cm??? AV Area Cont Eq pk 1.4 cm??? MV Area PHT 2.8 cm??? Mitral E Point Velocity 106.5 cm/s Mitral A Point Velocity 131.7 cm/s Mitral E to A Ratio 0.8 MV Deceleration Time 274.1 ms TR Peak Velocity 334.6 cm/s TR Peak Gradient 44.8 mmHg FINDINGS Left Ventricle Left ventricular ejection fraction is estimated at 60-65 %.ormal left ventricular systolic function with no obvious regional wall motion abnormalities. Left ventricular cavity size normal.Mildly increased left ventricular wall thickness. Right Ventricle Normal right ventricular size and function. Mild pulmonary hypertension. Right Atrium Normal right atrial size. Left Atrium Normal left atrial size. Mitral Valve Mitral valve thickened. Trace mitral regurgitation. No mitral stenosis. Aortic Valve Normally functioning bioprosthetic aortic valve, TAVR, without stenosis with a peak velocity of 2.67m/s, peak gradient 29mmHg, mean gradient 15mmHg, and estimated aortic valve area of 1.4cm???. No paravalvular aortic regurgitation. No central aortic regurgitation. Tricuspid Valve Structurally normal tricuspid valve. Mild tricuspid regurgitation. No tricuspid stenosis. Pulmonic Valve Structurally normal pulmonic valve. Trace pulmonic regurgitation. No pulmonic stenosis. Pericardium No pericardial or pleural effusion. Aorta Normal size aortic root and proximal ascending aorta. CONCLUSIONS 1. Normal left ventricular size and systolic function 2. TAVR noted with a mean gradient of 15 mmHg and no evidence of regurgitation 3. Mild tricuspid with mild pulmonary hypertension. Previewed by: Dr. Gladis Del Toro MD (Electronically Signed) Final Date: 16 April 2025 12:02
--- NOTE | 2025-04-16 12:20 | P.PN ---
Subjective Progress Note Date: 04/16/25 Principal diagnosis: Severe aortic stenosis This is a 64-year-old white male with critical symptomatic aortic stenosis, history of underlying severe COPD and severe peripheral vascular disease, patient had previous occlusion of the left femoral artery at the level of the inguinal ligament and right at the mid femoral head, patient is now status post transcatheter aortic valve replacement with 29 mm Medtronic evolute flex transcatheter aortic valve prosthesis. Patient is postoperative day #0, brought up to the ICU on BiPAP 10/09/50%, patient does not seem to be in distress, blood pressure is soft with blood pressure of 81/52 with a mean arterial pressure of 65. Patient is receiving fluid/fluid boluses as ordered by cardiothoracic surgery. His last cardiac catheterization was on 02/04/2025, showed normal coronary arteries, severe aortic stenosis with mean aortic gradient of 41. And slightly elevated right-sided filling pressures. CHAD on, showed tricuspid aortic valve with severe aortic stenosis. Seen today on 04/16/2025, patient is doing well, on nasal cannula, not in any form of distress. Pacer wires are being removed today, patient had TAVR on 04/15, and hopefully can be discharged home today. No cough no wheezing no shortness of breath, no chest pain. WBC count is 15.64 hemoglobin is 9 electrolytes showed low sodium of 126 patient has been receiving Lasix. BUN is 17 creatinine 0.61 Objective - Vital Signs Vital signs: Vital Signs Temp 98.4 F 04/16/25 08:00 Pulse 105 H 04/16/25 12:15 Resp 23 04/16/25 12:00 BP 97/73 04/16/25 12:00 Pulse Ox 94 L 04/16/25 12:00 FiO2 30 04/16/25 09:24 Intake & Output 04/15/25 04/16/25 04/16/25 18:59 06:59 18:59 Intake Total 2220.107 3034.825 580 Output Total 0 1 0 Balance 8141.373 1453.825 580 Weight 91.4 kg 91.4 kg Intake: IV 1750 700 100 LR 1500 Lactated Ringers 1,000 ml 150 600 50 @ 50 mls/hr IV .Q20H [facility] Rx#:[id number] ceFAZolin 2 gm In 50 100 50 Dextrose 5% in Water 50 ml @ 100 mls/hr IVPB Q8HR [facility] Rx#:[id number] Intake, IV Titration 5.129 67.825 Amount Norepinephrine 8 mg In 5.129 67.825 Sodium Chloride 0.9% 250 ml @ 0.03 MCG/KG/MIN 5. 045 mls/hr IV .Q24H [facility] Rx#:[id number] Oral 960 480 Output: Urine 0 0 Stool 1 Other: Voiding Method Toilet Toilet # Voids 1 1 # Bowel Movements 1 1 ABP, PAP, CO, CI - Last Documented Arterial Blood Pressure 81/72 - Exam General: Reveals 64-year-old white male on room air. Skin: Skin is warm and dry and no rashes or lesions are noted. Eye: Pupils are equal, round and reactive to light, extra-ocular movements are intact; there is normal conjunctiva bilaterally. Ears, nose, mouth and throat: There are moist mucous membranes and no oral lesions. Neck: The neck is supple, there is no tenderness or JVD. Cardiovascular: Distant S1-S2, 2/6 systolic murmur over the whole precordium Respiratory: Clear bilaterally no rhonchi no wheeze Gastrointestinal: Soft, non-distended, non-tender abdomen without masses or organomegaly noted. There is no rebound or guarding present. Bowel sounds are unremarkable. Back: There is no tenderness to palpation in the midline. There is no obvious deformity. Musculoskeletal: Normal ROM, no tenderness, There is no pedal edema. There is no calf tenderness or swelling. No cords were appreciated. Neurological: Alert oriented x 3 no gross focal deficit Psychiatric: Normal mood, affect and no mental status examination. - Labs CBC & Chem 7: 04/16/25 05:29 04/16/25 05:29 Labs: Abnormal Lab Results - Last 24 Hours (Table) 04/15/25 04/15/25 04/15/25 Range/Units 14:40 17:06 19:52 WBC 20.97 H (4.50-10.00) 10*3/uL RBC 3.74 L (4.40-5.60) 10*6/uL Hgb 10.7 L (13.0-17.0) g/dL Hct 32.5 L (39.6-50.0) % MPV 9.3 L (9.5-12.2) fL Immature Gran # (0.00-0.04) 10*3/uL Neutrophils # (1.80-7.70) 10*3/uL Monocytes # (0.20-1.00) 10*3/uL Eosinophils # (0.04-0.35) 10*3/uL Sodium (137-145) mmol/L Chloride (98-107) mmol/L Carbon Dioxide (22-30) mmol/L Creatinine (0.66-1.25) mg/dL Glucose (74-99) mg/dL POC Glucose (mg/dL) 205 H 228 H (70-110) mg/dL Total Protein (6.3-8.2) g/dL Albumin (3.5-5.0) g/dL 04/16/25 04/16/25 04/16/25 Range/Units 05:29 05:29 07:00 WBC 15.47 H (4.50-10.00) 10*3/uL RBC 3.16 L (4.40-5.60) 10*6/uL Hgb 9.0 L D (13.0-17.0) g/dL Hct 26.9 L (39.6-50.0) % MPV 9.4 L (9.5-12.2) fL Immature Gran # 0.10 H (0.00-0.04) 10*3/uL Neutrophils # 11.58 H (1.80-7.70) 10*3/uL Monocytes # 1.69 H (0.20-1.00) 10*3/uL Eosinophils # 0.00 L (0.04-0.35) 10*3/uL Sodium 126 L (137-145) mmol/L Chloride 87 L (98-107) mmol/L Carbon Dioxide 32 H (22-30) mmol/L Creatinine 0.61 L (0.66-1.25) mg/dL Glucose 179 H (74-99) mg/dL POC Glucose (mg/dL) 209 H (70-110) mg/dL Total Protein 5.3 L (6.3-8.2) g/dL Albumin 3.4 L (3.5-5.0) g/dL 04/16/25 Range/Units 11:43 WBC (4.50-10.00) 10*3/uL RBC (4.40-5.60) 10*6/uL Hgb (13.0-17.0) g/dL Hct (39.6-50.0) % MPV (9.5-12.2) fL Immature Gran # (0.00-0.04) 10*3/uL Neutrophils # (1.80-7.70) 10*3/uL Monocytes # (0.20-1.00) 10*3/uL Eosinophils # (0.04-0.35) 10*3/uL Sodium (137-145) mmol/L Chloride (98-107) mmol/L Carbon Dioxide (22-30) mmol/L Creatinine (0.66-1.25) mg/dL Glucose (74-99) mg/dL POC Glucose (mg/dL) 268 H (70-110) mg/dL Total Protein (6.3-8.2) g/dL Albumin (3.5-5.0) g/dL Assessment and Plan Assessment: Impression:Severe calcific aortic stenosis, severe peripheral vascular disease status postTranscatheter aortic valve replacement with 29 mm Medtronic evolute flex transcatheter aortic valve prosthesis, postoperative day # 1 Dyspnea on exertion secondary to above Type 2 diabetes Benign essential hypertension Dyslipidemia Family history of coronary artery disease Chronic obstructive pulmonary disease, on home O2 Tobacco dependence syndrome Recommendation: Continue present supportive care measures Resume home meds Ambulate Incentive spirometry Consider discharge home today if cleared by other consultants Time with Patient: Less than 30
[2025-04-16 15:27] VITALS: BP 112/68; PULSE 97; RESP 18
--- NOTE | 2025-04-16 15:58 | P.DS ---
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 Consult: post cardiac surgery Do you want consulting provider notified?: Yes [facility] Course: MEDICAL HISTORY: Calcified aortic valve with severe symptomatic aortic valve stenosis, NYHA class II History of hypertension Hyperlipidemia Insulin-dependent diabetes Severe COPD with home oxygen use, preoperative FEV1 20% of predicted Peripheral arterial disease Obstructive sleep apnea with home CPAP use Current tobacco dependence PROCEDURE: Percutaneous aortic valve implantation using a 29 mm Evolute FX Pro plus under CHAD and fluoroscopy guidance Transesophageal echocardiography performed by anesthesia Ultrasound-guided access and repair of right femoral artery access site by Perclose closure device Placement of temporary pacemaker wire Aortic root angiography Right femoral artery balloon tamponade with a 6.0 x 60 mm balloon IVUS right external iliac artery HISTORY OF PRESENT ILLNESS: This is a 64-year-old gentleman who follows on an outpatient basis with physician assistant Crocker for primary care and Dr. Pablo for cardiology. He has a known history of severe aortic stenosis and has been symptomatic with increased exertional dyspnea as well as chest tightn ess and lower extremity edema. He had been referred to structural heart clinic for evaluation for transcatheter aortic valve replacement after heart catheterization and transesophageal echocardiogram were completed. Echocardiography demonstrated systolic normal function with EF 55%, aortic valve area 0.9 cm with a peak/mean gradient 43/38 mmHg. Heart catheterization showed normal coronaries. After workup was completed STS risk score was calculated along with incremental risk and the patient was felt to be very high risk for surgical aortic valve replacement, therefore transcatheter aortic valve replacement was recommended. The usual course of TAVR was discussed in detail the patient, risks and benefits were reviewed, shared decision making between cardiology, surgery, and the patient/family took place, and the patient consented to proceed with the procedure. HOSPITAL COURSE: The patient was brought to the hospital on 04/15/25, was taken to the extended stay area, prepared in the usual fashion, and subsequently taken to the cardiac catheterization laboratory where Dr. Pablo and Dr. Gillis completed TAVR procedure under general anesthesia with fluoroscopy and CHAD after much discussion regarding access as patient has extensive peripheral arterial disease. The valve was deployed under rapid ventricular pacing and proceeded without event. At the end of the procedure there was no significant gradient, hemodynamics were felt to be acceptable, and there was no evidence of significant perivalvular leak. Upon completion of the procedure the patient was extubated and was transferred to the cardiovascular intensive care unit where he was recovered and monitored hemodynamically. His oxygen was titrated down, he was tolerating oral diet, his pain was controlled, follow-up TTE demonstrated normal left ventricular systolic function, mean gradient 15 mmHg, no paravalvular leak and he was ready to be discharged to home on postoperative day #1. He received written and verbal instruction regarding his medications, activity restrictions, signs and symptoms requiring physician notification, and follow-up appointments. Patient Condition at Discharge: Stable Plan - Discharge Summary Discharge Rx Participant: No New Discharge Prescriptions: New Sennosides-Docusate Sodium [Senokot-S] 2 each PO HS PRN tab PRN Reason: Constipation Acetaminophen Tab [Tylenol] 1,000 mg PO Q6HR PRN tab PRN Reason: Fever And/ Or Mild Pain (1-3) Continue Simvastatin 80 mg PO HS Omeprazole 40 mg PO QAM Lidocaine 4% Cream [Lmx 4] 1 applic TOPICAL BID PRN PRN Reason: Pain Aspirin 81 mg PO DAILY chew SITagliptin [Sitagliptin] 100 mg PO QAM Albuterol Nebulized [Ventolin Nebulized] 1 applic INHALATION QID Insulin Glargine,Hum.rec.anlog [Lantus Solostar Pen] 25 - 30 units SQ HS Mometasone/Formoterol [Dulera 100 Mcg-5 Mcg Inhaler] 1 puff INHALATION BID predniSONE 15 mg PO QAM traMADol HCL 50 mg PO Q6H PRN PRN Reason: Pain Zinc Gluconate [Zinc] 50 mg PO DAILY Ipratropium/Albuter 20-100Mcg [Combivent Respimat 20-100Mcg Inhaler] 1 puff INHALATION BID metFORMIN HCL [Glucophage] 1,000 mg PO BID #0 Albuterol Inhaler [Ventolin Hfa Inhaler] 1 puff INHALATION QID PRN PRN Reason: Shortness Of Breath Furosemide [Lasix] 40 mg PO DAILY Potassium Chloride [Klor-Con M20] 20 meq PO DAILY Ascorbic Acid [Vitamin C] 1,000 mg PO BID Mv-Min/Folic/K1/Lycopen/Lutein [Centrum Silver Men Tablet] 1 each PO DAILY Discontinued Lisinopril-Hctz 20-25 mg [Zestoretic 20-25] 1 tab PO QAM Discharge Medication List Simvastatin 80 mg PO HS 08/14/18 [History] Omeprazole 40 mg PO QAM 03/14/19 [History] Lidocaine 4% Cream [Lmx 4] 1 applic TOPICAL BID PRN 12/11/19 [History] Aspirin 81 mg PO DAILY chew 12/14/19 [Rx] Albuterol Inhaler [Ventolin Hfa Inhaler] 1 puff INHALATION QID PRN 09/01/24 [History] Albuterol Nebulized [Ventolin Nebulized] 1 applic INHALATION QID 09/01/24 [History] Insulin Glargine,Hum.rec.anlog [Lantus Solostar Pen] 25 - 30 units SQ HS 09/01/24 [History] Mometasone/Formoterol [Dulera 100 Mcg-5 Mcg Inhaler] 1 puff INHALATION BID 09/01/24 [History] SITagliptin [Sitagliptin] 100 mg PO QAM 09/01/24 [History] predniSONE 15 mg PO QAM 09/01/24 [History] Furosemide [Lasix] 40 mg PO DAILY 02/04/25 [History] Potassium Chloride [Klor-Con M20] 20 meq PO DAILY 02/04/25 [History] Ascorbic Acid [Vitamin C] 1,000 mg PO BID 04/08/25 [History] Ipratropium/Albuter 20-100Mcg [Combivent Respimat 20-100Mcg Inhaler] 1 puff INHALATION BID 04/08/25 [History] Mv-Min/Folic/K1/Lycopen/Lutein [Centrum Silver Men Tablet] 1 each PO DAILY 04/08/25 [History] Zinc Gluconate [Zinc] 50 mg PO DAILY 04/08/25 [History] traMADol HCL 50 mg PO Q6H PRN 04/08/25 [History] Acetaminophen Tab [Tylenol] 1,000 mg PO Q6HR PRN tab 04/16/25 [Rx] Sennosides-Docusate Sodium [Senokot-S] 2 each PO HS PRN tab 04/16/25 [Rx] metFORMIN HCL [Glucophage] 1,000 mg PO BID #0 04/16/25 [Rx] Follow up Appointment(s)/Referral(s): Juhi Crocker, PAC [REFERRING] - As Needed Tomi Pablo DO [STAFF PHYSICIAN] - 04/24/25 9:45 am (Your appointment 04/24/25 is for groin check. You also have a 30 day post TAVR echo and appointment with Dr. Pablo 06/04/25@2:30 pm, and a 1 year post TAVR echo and appointment with Dr. Pablo 03/23/26@1:45 pm) Ambulatory/Diagnostic Orders: Basic Metabolic Panel [LAB.AMB] Location: None Selected Basic Metabolic Panel [LAB.AMB] Location: None Selected Complete Blood Count w/diff [LAB.AMB] Location: None Selected Complete Blood Count w/diff [LAB.AMB] Location: None Selected Activity/Diet/Wound Care/Special Instructions: DISCHARGE INSTRUCTIONS: 1. No driving for 1 week, or until physician gives their ok. 2. No lifting, pushing, or pulling more than 5-10 pounds for 1 week. 3. Hold both groins when you cough or sneeze for the next 2 weeks. Bruising is common, but report increased swelling, pain or fever >101F 4. Shower daily. No pool, hot tub, or bathtub for 1 week 5. No powders, lotions, ointments on incisions. 6. No straining, including for bowel movements. Use stool softner if necessary 7. Stairs are not an issue. Go slowly, using handrail and take 1 step at a time. Ambulate several times daily 8. Continue pain control per as needed orders. 9. Take only the medications listed on your discharge form 10. Eat low salt (limited to 2 grams or 2000 milligrams) daily, avoid adding salt, avoid canned/processed foods 11. Take your weight daily in the morning and record, bring with you to your follow up appointments 12. Keep all follow up appointments. You will need a valve clinic appointment at 30 days and 1 year post procedure for follow up 13. You have been referred to and are expected to begin Cardiac Rehab in [facility] oximately 4 weeks. 14. You will need antibiotics prior to any dental work, including cleanings, and any surgeries to prevent Endocarditis (bacterial infection in your heart) For any questions or concerns please call your valve coordinators: Mera or Raymon @ Discharge Disposition: HOME SELF-CARE
== END 2025-04-16 15:30 | disposition home or self-care (01) | DRG 267 ==
LOC: 2ORMAIN 05:38 → 2SICU 10:16
PROVIDERS: ADMIT Internal Medicine; ATTEND Internal Medicine
PROC: B246ZZ4 Ultrasonography of Right and Left Heart, Transesophageal (ICD-10-PCS; 2025-04-15)
PROC: B3101ZZ Fluoroscopy of Thoracic Aorta using Low Osmolar Contrast (ICD-10-PCS; 2025-04-15)
PROC: B44FZZ3 Ultrasonography of Right Lower Extremity Arteries, Intravascular (ICD-10-PCS; 2025-04-15)
PROC: 02RF38Z Replacement of Aortic Valve with Zooplastic Tissue, Percutaneous Approach (ICD-10-PCS; principal; 2025-04-15 08:00)
PROC: 047K3ZZ Dilation of Right Femoral Artery, Percutaneous Approach (ICD-10-PCS; 2025-04-15 08:00)
PROC: 5A1223Z Performance of Cardiac Pacing, Continuous (ICD-10-PCS; 2025-04-15 08:00)
DX: I35.0 Nonrheumatic aortic (valve) stenosis (principal); Z00.6 Encounter for examination for normal comparison and control in clinical research program; Z99.81 Dependence on supplemental oxygen; E11.51 Type 2 diabetes mellitus with diabetic peripheral angiopathy without gangrene; J44.9 Chronic obstructive pulmonary disease, unspecified; I10 Essential (primary) hypertension; I70.202 Unspecified atherosclerosis of native arteries of extremities, left leg; Z79.4 Long term (current) use of insulin; E78.5 Hyperlipidemia, unspecified; G89.29 Other chronic pain; M54.9 Dorsalgia, unspecified; G47.33 Obstructive sleep apnea (adult) (pediatric); Z79.51 Long term (current) use of inhaled steroids; Z79.82 Long term (current) use of aspirin; Z79.84 Long term (current) use of oral hypoglycemic drugs; Z79.899 Other long term (current) drug therapy; Z82.49 Family history of ischemic heart disease and other diseases of the circulatory system; Z88.5 Allergy status to narcotic agent; Z88.8 Allergy status to other drugs, medicaments and biological substances
CPT/HCPCS: 33361; 37220; 37252; 71045; 80048; 80053; 82805; 83735; 85025; 85027; 93306; 93308; 93312; 93320; 93325; 94640; 94660; 94760

== ENCOUNTER 2025-04-21 21:46 | Inpatient (IN) | payer OTHER, MEDICARE ==
--- NOTE | 2025-04-21 22:05 | ED ---
General Adult HPI - General Source: patient, RN notes reviewed Mode of arrival: wheelchair Limitations: no limitations <Cal Baker - Last Filed: 04/21/25 22:05> <Sujata Hooks - Last Filed: 04/22/25 08:42> - General Stated complaint: post surgery-discoloration skin lower extremities Time Seen by Provider: 04/21/25 21:54 - History of Present Illness Initial comments: Quick note: This is a 64-year-old male with history including DM, COPD and aortic valve stenosis presenting for perineal discoloration and pain. Patient states he underwent a TAVR procedure under Dr. Pablo on 04/15/2025. States he suspects the procedure having caused black discoloration and pain is groin region today. States he called Dr. Pablo's office and was advised by Dr. Pablo's associate to be seen in ER for a possible abdominal ultrasound to rule out GI bleeding. Patient states he requires the name of the associate that made the ER recommendation to ensure his [facility] insurance covers today's visit. Denies fever, chills, chest pain, dyspnea, dizziness, N/V/D, urinary symptoms. (Cal Baker) Patient is 64-year-old gentleman past medical 3 diabetes, COPD, recent TAVR approximately 6 days ago presenting today for lower abdominal pain. Patient states since surgery has noticed bruising across his lower abdomen and scrotum. He endorses lower abdominal pressure that is continued to worsen today. Called Dr. Pablo's office and was directed to come to the ER for further assessment. Patient endorses chronic shortness of breath that he thinks may be somewhat worse than normal, otherwise denies chest pain. Denies cough hemoptysis or fevers. Denies melena or hematochezia. This bowel movement was the day after his TAVR. Denies nausea or vomiting. Denies dizziness, dysuria, hematuria or urinary frequency. Denies nausea vomiting or diarrhea. Endorses bilateral lower extremity swelling that has been ongoing since his TAVR. (Sujata Hooks) - Related Data Home Medications Medication Instructions Recorded Confirmed Simvastatin 80 mg PO HS 08/14/18 04/08/25 Omeprazole 40 mg PO QAM 03/14/19 04/15/25 Lidocaine 4% Cream [Lmx 4] 1 applic TOPICAL BID PRN 12/11/19 04/08/25 Albuterol Inhaler [Ventolin Hfa 1 puff INHALATION QID PRN 09/01/24 04/15/25 Inhaler] Albuterol Nebulized [Ventolin 1 applic INHALATION QID 09/01/24 04/15/25 Nebulized] Insulin Glargine,Hum.rec.anlog 25 - 30 units SQ HS 09/01/24 04/15/25 [Lantus Solostar Pen] Mometasone/Formoterol [Dulera 100 1 puff INHALATION BID 09/01/24 04/15/25 Mcg-5 Mcg Inhaler] SITagliptin [Sitagliptin] 100 mg PO QAM 09/01/24 04/08/25 predniSONE 15 mg PO QAM 09/01/24 04/15/25 Furosemide [Lasix] 40 mg PO DAILY 02/04/25 04/08/25 Potassium Chloride [Klor-Con M20] 20 meq PO DAILY 02/04/25 04/08/25 Ascorbic Acid [Vitamin C] 1,000 mg PO BID 04/08/25 04/08/25 Ipratropium/Albuter 20-100Mcg 1 puff INHALATION BID 04/08/25 04/15/25 [Combivent Respimat 20-100Mcg Inhaler] Mv-Min/Folic/K1/Lycopen/Lutein 1 each PO DAILY 04/08/25 04/08/25 [Centrum Silver Men Tablet] Zinc Gluconate [Zinc] 50 mg PO DAILY 04/08/25 04/08/25 traMADol HCL 50 mg PO Q6H PRN 04/08/25 04/08/25 Previous Rx's Medication Instructions Recorded Aspirin 81 mg PO DAILY chew 12/14/19 Acetaminophen Tab [Tylenol] 1,000 mg PO Q6HR PRN tab 04/16/25 Sennosides-Docusate Sodium 2 each PO HS PRN tab 04/16/25 [Senokot-S] metFORMIN HCL [Glucophage] 1,000 mg PO BID #0 04/16/25 Allergies Allergy/AdvReac Type Severity Reaction Status Date / Time empagliflozin Allergy Itching Verified 04/21/25 22:26 glipizide Allergy increased Verified 04/21/25 22:26 lactic acid bupropion [From Wellbutrin] AdvReac Nausea Verified 04/21/25 22:26 codeine AdvReac Nausea Verified 04/21/25 22:26 gabapentin AdvReac Nausea & Verified 04/21/25 22:26 Vomiting pregabalin AdvReac Nausea Verified 04/21/25 22:26 Review of Systems ROS Other: All systems not noted in ROS Statement are negative. <Cal Baker - Last Filed: 04/21/25 22:05> ROS Other: All systems not noted in ROS Statement are negative. <Sujata Hooks - Last Filed: 04/22/25 08:42> ROS Statement: Those systems with pertinent positive or pertinent negative responses have been documented in the HPI. Past Medical History Past Medical History: COPD, Diabetes Mellitus, GERD/Reflux, Hyperlipidemia, Hypertension, Sleep Apnea/CPAP/BIPAP Additional Past Medical History / Comment(s): aortic valve stenosis,bipap with O2 @ 3L,uses O2 @ 2 L nc prn during the day-Stg 4 COPD-unable to lay flat on back. Chronic back pain, hx of jaw fx 1978, History of Any Multi-Drug Resistant Organisms: None Reported Past Surgical History: Back Surgery, Heart Catheterization Additional Past Surgical History / Comment(s): lumbar surgery ; pain procedures, COLONOSCOPY, BRONCHOSCOPY Past Anesthesia/Blood Transfusion Reactions: No Reported Reaction Additional Past Anesthesia/Blood Transfusion Reaction / Comment(s): no hx blood transfusion Smoking Status: Current every day smoker - Past Family History Mother Family Medical History: No Reported History Father Family Medical History: COPD, Coronary Artery Disease (CAD) Additional Family Medical History / Comment(s): CABG. peripheral vascular disease <Cal Baker - Last Filed: 04/21/25 22:05> General Exam <Cal Baker - Last Filed: 04/21/25 22:05> <EnglishSujata - Last Filed: 04/22/25 08:42> - General Exam Comments Initial Comments: Visual Physical Exam Vital signs reviewed General: Well-appearing, nontoxic, no acute distress. Head: Normocephalic, atraumatic Eyes: PERRLA, EOMI ENT: Airway patent Chest: Nonlabored breathing Skin: No visual rash, normal skin tone Neuro: Alert and oriented 3 Musculoskeletal: No gross abnormalities (Cal Baker) PE: CONSTITUTIONAL: No apparent distress, chronically ill appearing non toxic SKIN: Warm, dry, no jaundice, hives or petechiae EYES: Pupils are equally round, extraocular movements intact without nystagmus, clear conjunctiva, non-icteric sclera HENT: Normocephalic, atraumatic, moist mucus membranes, oropharynx clear without exudates NECK: , Full range of motion, normal appearance PULMONARY: Scant rhonchi in RLL field with scant wheezes throughtout normal excursion, no accessory muscle use and no stridor CARDIOVASCULAR: Tachycardia, regular rate, rhythm, normal S1 and S2. No appreciated murmurs, rubs or gallops. Strong radial pulses with intact distal perfusion. Doppler 1+ bilateral DP pulses, 2-3s cap refill, 1+ bilat lower extremity pitting edema GASTROINTESTINAL: Firm, active bowel sounds throughout, mildly distended, purple bruising across lower abdomen, TTP in this region as well no palpable masses, no rebound No hepatosplenomegaly GENITOURINARY: Performed with ANGEL Antonio as peach grower, shows diffuse bruising of scrotum, no crepitus, does not extend to perineum, no bruising to the distal penis MUSCULOSKELETAL: Extremities have no gross deformity. No calf swelling NEUROLOGIC:_a/o x 3, GCS 15, normal mentation and speech. Moves all extremities x 4 without motor or sensory deficit PSYCHIATRIC:_normal mood and affect, thought process is clear and linear (Sujata Hooks) Course Vital Signs 04/21/25 04/21/25 04/21/25 22:19 23:52 23:54 Temperature 98.5 F Pulse Rate 105 H 111 H 94 Respiratory 18 22 Rate Blood Pressure 117/63 133/83 O2 Sat by Pulse 97 94 L Oximetry Fraction of Inspired Oxygen (FIO2) 04/22/25 04/22/25 04/22/25 00:16 01:45 04:17 Temperature Pulse Rate 101 H 101 H 80 Respiratory 18 Rate Blood Pressure 121/72 O2 Sat by Pulse 96 Oximetry Fraction of 60 Inspired Oxygen (FIO2) 04/22/25 04/22/25 04:44 05:33 Temperature Pulse Rate 91 90 Respiratory 18 Rate Blood Pressure 116/71 O2 Sat by Pulse 96 Oximetry Fraction of Inspired Oxygen (FIO2) EKG Findings - EKG Comments: EKG Findings:: Sinus rhythm, rate 96 bpm, intervals within acceptable limits, no significant ST elevations or depressions, right bundle branch block present, right axis deviation, no arrhythmia <Sujata Hooks - Last Filed: 04/22/25 08:42> Medical Decision Making <Cal Baker - Last Filed: 04/21/25 22:05> - Lab Data Result diagrams: 04/22/25 05:47 04/21/25 23:01 <Sujata Hooks - Last Filed: 04/22/25 08:42> - Medical Decision Making I completed the quick note portion of this chart signed ROME Lowe (Cal Baker) Was pt. 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 What history was obtained from this source @ -[No] Did you review nursing and triage notes (agree or disagree)? Why? @ -[I reviewed nursing and triage notes] Were old charts reviewed (outside hosp., previous admission, EMS record, old EKG, old radiological studies, urgent care reports/EKG's, half-way records)? Report findings @ -[Medical records reviewed]Reviewed discharge summary from 04/15/2025, appears patient had been admitted due to severe aortic stenosis, at that time discharge summary does state that patient had shortness of breath and lower extremity edema as well, additionally on review of this note patient had recent heart cath that had normal coronary arteries Differential Diagnosis (chest pain, altered mental status, abdominal pain women, abdominal pain men, vaginal bleeding, weakness, fever, dyspnea, syncope, headache, dizziness, GI bleed, back pain, seizure, CVA, palpatations, mental health, musculoskeletal)? @ -Differential Abdominal Pain Men: Appendicitis, cholecystitis, diverticulosis, ischemic bowel, pancreatitis, hepatitis, UTI, gastroenteritis, AAA, incarcerated hernia, bowel obstruction, constipation, inflammatory bowel, hepatitis, peptic ulcer disease, splenic infarction, perforated viscus, testicular torsion, Fernando's gangrene this is not meant to be an all-inclusive list EKG interpreted by me (3pts min.). @ -[As above] X-rays interpreted by me (1pt min.). @Personally viewed chest x-ray- No obvious consolidations, agree with radiologist interpretation CT interpreted by me (1pt min.). CT thor/abd with runoff reviewed- I do not see active contrast extravesation or free fluid collection or soft tissue gas. agree with radiologist interpretation . U/S interpreted by me (1pt. min.). @ -[None done] What testing was considered but not performed or refused? (CT, X-rays, U/S, labs)? Why? @ -[None] What meds were considered but not given or refused? Why? @ -Heparin infusion was considered however given extent of hematoma, will hold for now so as not to worsen this Did you discuss the management of the patient with other professionals (professionals i.e. , PA, [employer], lab, RT, psych nurse, sr. social media & mobile manager, pulmonary nurse practitioner, teacher, airconditioning drafting officer, director of casework services)? Give summary @ -[No] Was smoking cessation discussed for >3mins.? @ -[No] Was critical care preformed (if so, how long)? @ -[No] Were there social determinants of health that impacted care today? How? (Ho melessness, low income, unemployed, alcoholism, drug addiction, transportation, low edu. Level, literacy, decrease access to med. care, assisted, rehab)? @ -[No] Was there de-escalation of care discussed even if they declined (Discuss DNR or withdrawal of care, Hospice)? @ -[No] What co-morbidities impacted this encounter? (DM, HTN, Smoking, COPD, CAD, Cancer, CVA, ARF, Chemo, Hep., AIDS, mental health diagnosis, sleep apnea, morbid obesity)? @Diabetes, COPD, recent TAVR Was patient admitted / discharged? Hospital course, mention meds given and route, prescriptions, significant lab abnormalities, going to OR and other pertinent info. Admission- this is a pleasant for 64-year-old gentleman recent TAVR presenting today for lower abdominal and scrotal bruising and pain since recent TAVR. On my assessment patient is resting comfortably no acute distress. Does have scant rhonchi in the right lower lung field and wheezes bilaterally, patient does state she has a history has a history of COPD, is on home abdominal exam shows bruising across the lower abdomen with tenderness to palpation in this region as well as what appears to be bruising of the scrotum, this does not extend to the perineum and there is no crepitus palpable. Though I did consider Fernando's gangrene I suspect this is more likely bruising, will obtain CT abdomen pelvis to assess for signs of active bleeding or infectious signs. Will obtain type and cross, comprehensive labs. Slightly mottling of pt's knees noted as with awell. Pt states present on recent admission but possible worse than prior. Very faint DP pulses were auscultated bilaterally with doppler. Additionally patient does state he is always short of breath and thinks he may be somewhat more short of breath than usual, will obtain chest x-ray, troponin BNP and administer breathing treatment. Patient agreeable plan of care. Troponin 0.136, I suspect this is secondary to recent TAVR, patient currently denies active chest pain, given bruising in the lower abdomen, I feel any benefit of heparin at this point would outweigh potential risk. Will continue to trend. CT abdomen pelvis with runoff was significant for no acute findings in the a rteries of the pelvis or bilateral lower extremities so did not 16.1 cm left flank hematoma without evidence of active contrast direct visitation, likely postprocedural in nature, bilateral femoral artery occlusions, and occlusion of the right common femoral artery distally with longer calcifications, short segment occlusion of the right superficial femoral artery occlusion of the right superficial femoral artery no acute findings in the right calf or foot arteries, high-grade stenosis measuring approximately 80% of the left common iliac artery with occlusion of the left internal iliac artery, dense vascular calcification involving the left common femoral artery with which appears to be occluded just above this with filling of the common femoral arteries to the level of the proximal aspect of the femoral head. Given patient's very faint pulse when doppler was used to find the right DP pulse and mottling of his knees, I am concerned for worsening arterial occlusions. Pt does not have an elevated lactic however I feel pt should be seen by vascular surgery. At this point, heparin will be held, given pt's known large abdominal hematoma. Pt agreeable with admission. Case discussed with Dr. Ram, who kindly accepted pt for admission. Undiagnosed new problem with uncertain prognosis? @ -[No] Drug Therapy requiring intensive monitoring for toxicity (Heparin, Nitro, Insulin, Cardizem)? @ -[No] Were any procedures done? @ -[No] Diagnosis/symptom? @ -Femoral arterial occlusion, left flank hematoma Acute, or Chronic, or Acute on Chronic? @acute on chronic Uncomplicated (without systemic symptoms) or Complicated (systemic symptoms)? @complicated Side effects of treatment? @ -[No] Exacerbation, Progression, or Severe Exacerbation? @ -[No] Poses a threat to life or bodily function? How? (Chest pain, [place], [place], pneumonia, PE, COPD, DKA, ARF, appy, cholecystitis, CVA, Diverticulitis, Homicidal, Suicidal, threat to staff... and all critical care pts) @Potentially, if left untreated could lead to limb ischemia and limb loss (Sujata Hooks) - Lab Data Lab Results 04/21/25 04/21/25 04/21/25 Range/Units 23:01 23:01 23:01 WBC 12.98 H (4.50-10.00) 10*3/uL RBC 2.94 L (4.40-5.60) 10*6/uL Hgb 8.3 L (13.0-17.0) g/dL Hct 25.1 L (39.6-50.0) % MCV 85.4 (80.0-97.0) fL MCH 28.2 (27.0-32.0) pg MCHC 33.1 (32.0-37.0) g/dL Plt Count 367 (140-440) 10*3/uL MPV 9.0 L (9.5-12.2) fL Immature Gran % (Auto) 0.9 % Neutrophils % 77.2 % Lymphocytes % 12.3 % Monocytes % 8.9 % Eosinophils % 0.4 % Basophils % 0.3 % Immature Gran # 0.12 H (0.00-0.04) 10*3/uL Neutrophils # 10.01 H (1.80-7.70) 10*3/uL Lymphocytes # 1.60 (0.90-5.00) 10*3/uL Monocytes # 1.16 H (0.20-1.00) 10*3/uL Eosinophils # 0.05 (0.04-0.35) 10*3/uL Basophils # 0.04 (0.00-0.10) 10*3/uL PT 10.4 (10.0-12.5) sec INR 0.9 (<1.2) APTT 21.9 L (22.0-30.0) sec Sodium 131 L (137-145) mmol/L Potassium 4.5 (3.5-5.1) mmol/L Chloride 95 L (98-107) mmol/L Carbon Dioxide 31 H (22-30) mmol/L Anion Gap 5 mmol/L BUN 18 (9-20) mg/dL Creatinine 0.54 L (0.66-1.25) mg/dL Est GFR (CKD-EPI)AfAm >90 (>60 ml/min/1.73 sqM) Est GFR (CKD-EPI)NonAf >90 (>60 ml/min/1.73 sqM) Glucose 137 H (74-99) mg/dL Plasma Lactic Acid Paco (0.7-2.0) mmol/L Calcium 9.5 (8.4-10.2) mg/dL Total Bilirubin 0.7 (0.2-1.3) mg/dL AST 32 (17-59) U/L ALT 27 (4-49) U/L Alkaline Phosphatase 50 (38-126) U/L Troponin I (0.000-0.034) ng/mL C-Reactive Protein 1.3 H (<1.0) mg/dL NT-Pro-B Natriuret Pep 195 pg/mL Total Protein 5.9 L (6.3-8.2) g/dL Albumin 3.6 (3.5-5.0) g/dL Lipase 67 (23-300) U/L Urine Color Urine Appearance (Clear) Urine pH (5.0-8.0) Ur Specific [place] (1.001-1.035) Urine Protein (Negative) Urine Glucose (UA) (Negative) Urine Ketones (Negative) Urine Blood (Negative) Urine Nitrite (Negative) Urine Bilirubin (Negative) Urine Urobilinogen (<2.0) mg/dL Ur Leukocyte Esterase (Negative) 04/21/25 04/21/25 04/22/25 Range/Units 23:01 23:01 02:15 WBC (4.50-10.00) 10*3/uL RBC (4.40-5.60) 10*6/uL Hgb (13.0-17.0) g/dL Hct (39.6-50.0) % MCV (80.0-97.0) fL MCH (27.0-32.0) pg MCHC (32.0-37.0) g/dL Plt Count (140-440) 10*3/uL MPV (9.5-12.2) fL Immature Gran % (Auto) % Neutrophils % % Lymphocytes % % Monocytes % % Eosinophils % % Basophils % % Immature Gran # (0.00-0.04) 10*3/uL Neutrophils # (1.80-7.70) 10*3/uL Lymphocytes # (0.90-5.00) 10*3/uL Monocytes # (0.20-1.00) 10*3/uL Eosinophils # (0.04-0.35) 10*3/uL Basophils # (0.00-0.10) 10*3/uL PT (10.0-12.5) sec INR (<1.2) APTT (22.0-30.0) sec Sodium (137-145) mmol/L Potassium (3.5-5.1) mmol/L Chloride (98-107) mmol/L Carbon Dioxide (22-30) mmol/L Anion Gap mmol/L BUN (9-20) mg/dL Creatinine (0.66-1.25) mg/dL Est GFR (CKD-EPI)AfAm (>60 ml/min/1.73 sqM) Est GFR (CKD-EPI)NonAf (>60 ml/min/1.73 sqM) Glucose (74-99) mg/dL Plasma Lactic Acid Paco 1.6 (0.7-2.0) mmol/L Calcium (8.4-10.2) mg/dL Total Bilirubin (0.2-1.3) mg/dL AST (17-59) U/L ALT (4-49) U/L Alkaline Phosphatase (38-126) U/L Troponin I 0.136 H* (0.000-0.034) ng/mL C-Reactive Protein (<1.0) mg/dL NT-Pro-B Natriuret Pep pg/mL Total Protein (6.3-8.2) g/dL Albumin (3.5-5.0) g/dL Lipase (23-300) U/L Urine Color Yellow Urine Appearance Clear (Clear) Urine pH 6.5 (5.0-8.0) Ur Specific [place] 1.040 H (1.001-1.035) Urine Protein Trace H (Negative) Urine Glucose (UA) Negative (Negative) Urine Ketones Negative (Negative) Urine Blood Negative (Negative) Urine Nitrite Negative (Negative) Urine Bilirubin Negative (Negative) Urine Urobilinogen 3.0 (<2.0) mg/dL Ur Leukocyte Esterase Negative (Negative) 04/22/25 Range/Units 02:15 WBC (4.50-10.00) 10*3/uL RBC (4.40-5.60) 10*6/uL Hgb (13.0-17.0) g/dL Hct (39.6-50.0) % MCV (80.0-97.0) fL MCH (27.0-32.0) pg MCHC (32.0-37.0) g/dL Plt Count (140-440) 10*3/uL MPV (9.5-12.2) fL Immature Gran % (Auto) % Neutrophils % % Lymphocytes % % Monocytes % % Eosinophils % % Basophils % % Immature Gran # (0.00-0.04) 10*3/uL Neutrophils # (1.80-7.70) 10*3/uL Lymphocytes # (0.90-5.00) 10*3/uL Monocytes # (0.20-1.00) 10*3/uL Eosinophils # (0.04-0.35) 10*3/uL Basophils # (0.00-0.10) 10*3/uL PT (10.0-12.5) sec INR (<1.2) APTT (22.0-30.0) sec Sodium (137-145) mmol/L Potassium (3.5-5.1) mmol/L Chloride (98-107) mmol/L Carbon Dioxide (22-30) mmol/L Anion Gap mmol/L BUN (9-20) mg/dL Creatinine (0.66-1.25) mg/dL Est GFR (CKD-EPI)AfAm (>60 ml/min/1.73 sqM) Est GFR (CKD-EPI)NonAf (>60 ml/min/1.73 sqM) Glucose (74-99) mg/dL Plasma Lactic Acid Paco (0.7-2.0) mmol/L Calcium (8.4-10.2) mg/dL Total Bilirubin (0.2-1.3) mg/dL AST (17-59) U/L ALT (4-49) U/L Alkaline Phosphatase (38-126) U/L Troponin I 0.160 H* (0.000-0.034) ng/mL C-Reactive Protein (<1.0) mg/dL NT-Pro-B Natriuret Pep pg/mL Total Protein (6.3-8.2) g/dL Albumin (3.5-5.0) g/dL Lipase (23-300) U/L Urine Color Urine Appearance (Clear) Urine pH (5.0-8.0) Ur Specific [place] (1.001-1.035) Urine Protein (Negative) Urine Glucose (UA) (Negative) Urine Ketones (Negative) Urine Blood (Negative) Urine Nitrite (Negative) Urine Bilirubin (Negative) Urine Urobilinogen (<2.0) mg/dL Ur Leukocyte Esterase (Negative) Disposition <Cal Baker - Last Filed: 04/21/25 22:05> <Sujata Hooks - Last Filed: 04/22/25 08:42> Clinical Impression: Arterial occlusion, lower extremity Disposition: ADMITTED IP TO THIS [facility] Condition: Stable
[2025-04-21 23:30] LABS: Basophils # (A) 0.04 10*3/uL (0.00-0.10); Basophils % (A) 0.3 %; Eosinophils # (A) 0.05 10*3/uL (0.04-0.35); Eosinophils % (A) 0.4 %; HCT 25.1 % (39.6-50.0); HGB 8.3 g/dL (13.0-17.0); Lymphocytes % (A) 12.3 %; MCH 28.2 pg (27.0-32.0); MCHC 33.1 g/dL (32.0-37.0); MCV 85.4 fL (80.0-97.0); Monocytes # (A) 1.16 10*3/uL (0.20-1.00); Monocytes % (A) 8.9 %; Neutrophils # (A) 10.01 10*3/uL (1.80-7.70); Neutrophils % (A) 77.2 %; Platelet Count 367 10*3/uL (140-440); RBC 2.94 10*6/uL (4.40-5.60); RDW 14.3 % (11.5-14.5); WBC 12.98 10*3/uL (4.50-10.00)
[2025-04-21] MEDS: IPRATROPIUM-ALBUTEROL 3 ML NEB INHALATION STA (23:50)
[2025-04-21] MEDS: HYDROmorphone 1 MG/ML 1 ML SYRINGE IVP STA (23:51)
[2025-04-22 00:12] LABS: INR 0.9 (<1.2); Prothrombin Time 10.4 sec (10.0-12.5)
[2025-04-22 00:29] LABS: Partial Thromboplastin Time 21.9 sec (22.0-30.0)
[2025-04-22 00:53] LABS: ALT 27 U/L (4-49); AST 32 U/L (17-59); African American GFR (CKD) >90 (>60 ml/min/1.73 sqM); Albumin 3.6 g/dL (3.5-5.0); Alkaline Phosphatase 50 U/L (38-126); Anion Gap 5 mmol/L; Blood Urea Nitrogen 18 mg/dL (9-20); C Reactive Protein 1.3 mg/dL (<1.0); Calcium 9.5 mg/dL (8.4-10.2); Carbon Dioxide 31 mmol/L (22-30); Chloride 95 mmol/L (98-107); Glucose 137 mg/dL (74-99); Lipase 67 U/L (23-300); Non-African American GFR(CKD) >90 (>60 ml/min/1.73 sqM); Potassium 4.5 mmol/L (3.5-5.1); Sodium 131 mmol/L (137-145); Total Bilirubin 0.7 mg/dL (0.2-1.3); Total Protein 5.9 g/dL (6.3-8.2)
[2025-04-22 00:58] LABS: NT-Pro-B-Type Natriuretic Pept 195 pg/mL
[2025-04-22] MEDS: HYDROmorphone 0.5 MG/0.5 ML SYRINGE IVP STA (01:47)
[2025-04-22] MEDS: SODIUM CHLORIDE 0.9% 500 ML 500 ML IV ONE (01:49)
--- NOTE | 2025-04-22 02:37 | CT ---
EXAM: CT Angiography Pelvis With Runoff to the Bilateral Lower Extremities With Intravenous Contrast CLINICAL HISTORY: ITS.REASON CT Reason: low ab and scrotal bruising s/p TAVR TECHNIQUE: Axial computed tomographic angiography images of the pelvis and bilateral lower extremities with intravenous contrast. CTDI is 18.4 mGy and DLP is 2992.8 mGy-cm. This CT exam was performed using one or more of the following dose reduction techniques: automated exposure control, adjustment of the mA and/or kV according to patient size, and/or use of iterative reconstruction technique. MIP reconstructed images were created and reviewed. COMPARISON: No relevant prior studies available. FINDINGS: VASCULATURE: Right iliac arteries: No acute findings. No occlusion or significant stenosis. Right femoral/popliteal arteries: Occlusion of the right common femoral artery distally with large calcifications. Short segment occlusion of the right superficial femoral artery occlusion of the proximal right superficial femoral artery. Right calf/foot arteries: No acute findings. No occlusion or significant stenosis. Left iliac arteries: High-grade stenosis measuring approximately 80% of the left common iliac artery. Occlusion of the left internal iliac artery. Left femoral/popliteal arteries: Dense vascular calcification involving the left common femoral artery. The vessel appears to be occluded just above this with filling of the common femoral arteries to the level of the proximal aspect of the femoral head. Left calf/foot arteries: No acute findings. No occlusion or significant stenosis. PELVIS: Kidneys and ureters: Simple 2.6 cm right renal cysts. No follow-up of these simple cysts is necessary. Bowel: Unremarkable. No obstruction. No mucosal thickening. Appendix: No findings to suggest acute appendicitis. Bladder: Unremarkable. No mass. Reproductive: See below. PELVIS and LOWER EXTREMITIES: Intraperitoneal space: Unremarkable. No significant fluid collection. No free air. Bones/joints: No acute fracture. No dislocation. Soft tissues: Hematoma along the left flank extending from the left inguinal region superiorly measuring 16.1 x 4.1 x 8.4 cm. This is tracking inferiorly towards the left scrotum. No evidence of acute contrast extravasation. Lymph nodes: Unremarkable. No enlarged lymph nodes. IMPRESSION: No acute findings in the arteries of the pelvis or bilateral lower extremities. 16.1 cm left flank hematoma. No evidence of active contrast extravasation identified on this exam. This is likely postprocedural in nature. Bilateral common femoral artery occlusions Right SFA occlusion proximally.
[2025-04-22 03:04] LABS: Appearance,Urine Clear (Clear); Bilirubin,Urine Negative (Negative); Blood,Urine Negative (Negative); Color,Urine Yellow; Glucose,Urine (UA) Negative (Negative); Ketones,Urine Negative (Negative); Leukocyte Esterase,Urine Negative (Negative); Nitrite,Urine Negative (Negative); PH, Urine 6.5 (5.0-8.0); Protein,Urine Trace (Negative)
[2025-04-22] MEDS ORDERED: ACETAMINOPHEN TAB 500 MG TAB PO PRN (03:48)
[2025-04-22] MEDS ORDERED: NON FORMULARY DRUG (Albuterol Inhaler 90 MCG Puff) INHALATION PRN (03:48)
[2025-04-22] MEDS ORDERED: MAG HYDROX/AL HYDROX/SIMETH 30 ML CUP PO PRN (03:57)
[2025-04-22] MEDS ORDERED: NALOXONE 0.4 MG/ML 1 ML VIAL IV PRN (03:57)
[2025-04-22] MEDS ORDERED: ONDANSETRON 4 MG/2 ML VIAL IVP PRN (03:57)
[2025-04-22] MEDS ORDERED: tiZANidine 4 MG TAB PO PRN (04:05)
[2025-04-22] MEDS: IPRATROPIUM-ALBUTEROL 3 ML NEB INHALATION STA (04:13)
[2025-04-22 04:43] LABS: Glucose,Whole Blood 132 mg/dL (70-110)
[2025-04-22] MEDS: INSULIN GLARGINE (LANTUS) 100 UNIT/ML SYR SQ ONE (05:22)
[2025-04-22] MEDS: ATORVASTATIN 40 MG TAB PO SCH (05:24)
--- NOTE | 2025-04-22 05:50 | P.HPIM ---
History of Present Illness H&P Date: 04/22/25 Chief Complaint: perineal discoloration and pain. Patient is a 64-year-old gentleman with a past medical history of essential hypertension, dyslipidemia, insulin-dependent type 2 diabetes mellitus, severe COPD with home oxygen use, peripheral arterial disease, obstructive sleep apnea with CPAP use and tobacco dependence. Patient is known to have severe aortic stenosis and has been symptomatic with dyspnea. He is status post TAVR on April 15, 2025 via right femoral access . He did had a transthoracic echo which showed normal left ventricular systolic function and was discharged. Patient presents today after he contacted Dr.Dr. Pablo for black discolorat ion and pain is groin region today and was told to present to the ER for possible abdominal ultrasound to rule out hematoma and bleeding. He denies having any dizziness, lightheadedness, fevers or chills. He noticed that there was some bruising across his lower abdomen and scrotum. He does report abdominal pressure and pain. He did had a bowel movement post TAVR. No change in bowel habits. No nausea or vomiting. He does report bilateral lower extremity swelling . Upon arrival to the ED, patient was saturating 96% on 2 L which is his usual. He was slightly tachycardic with a heart rate of 101 . Blood pressure is stable. Labs done showing a WBC of 12.9, hemoglobin of 8.3 and his last hemoglobin on April 16 was 9 . Sodium of 131, carbon dioxide 31, normal kidney function . Initial set of troponin 0.136 and repeat troponin 0.160. Patient denies having any chest pain and no ischemic changes on EKG. CT of the abdomen and pelvis with runoff showing a large hematoma at the left flank area of around 16.1 cm but no evidence of active contrast extravasation. Study is remarkable for bilateral common femoral artery occlusions and right SFA occlusion proximally. Patient has high-grade stenosis measuring approximately 80% of the left common iliac artery and occlusion of the left internal iliac artery. Case was discussed with vascular surgery and patient to be seen by vascular. Heparin drip was not started due to the large area of hematoma. Patient to be admitted to be seen by vascular Past medical history : past medical history of essential hypertension, dyslipidemia, insulin-dependent type 2 diabetes mellitus, severe COPD with home oxygen use, peripheral arterial disease, obstructive sleep apnea with CPAP use and tobacco dependence Past surgical history : Back surgery, bronchoscopy, colonoscopy Social history : 1 pack/day , no alcohol use and no illicit drug use Review of system : Negative except for mentioned in HPI PE: General: Chronically ill-appearing Derm: warm, dry, intact Head: atraumatic, normocephalic, symmetric Eyes: EOMI, anicteric sclera Mouth: no lip lesion, mucus membranes moist Cardiovascular: S1 S2 reg, no murmur, rubs, or gallops Lungs: Slightly tachypneic with diminished breath sounds bilaterally Abdominal: soft, bruising with tenderness at the lower abdomen. Genitourinary : Perineal bruising Extremities: Bilateral faint peripheral pulses of the lower extremities, +2 pitting edema bilaterally Assessment and plan : -Ischemic lower extremity /severe peripheral vascular disease: Consult vascular Will hold off starting heparin due to large hematoma in the pelvic area H&H every 12 hours Hold aspirin for now -Abdominal hematoma post TAVR : Hemoglobin around 8.3 Continue with H&H every 12 hours Will transfuse 1 unit of packed RBC if hemoglobin drops below 8 - Acute on chronic anemia : Likely due to hematoma H&H every 12 hours Transfuse once hemoglobin less than 8 Iron studies, ferritin, folate, vitamin B12 -Severe COPD/dyspnea on exertion/ obstructive sleep apnea on BIPAP: Continue with albuterol, Pulmicort Patient currently stable on 2 L Continue BiPAP for sleep apnea - Insulin-dependent type 2 diabetes mellitus : Continue insulin glargine 30 units at bedtime Will add low-dose insulin sliding scale HbA1c - Dyslipidemia : Continue statin therapy CODE STATUS is full code DVT prophylaxis on SCD for now Disposition: Home when patient is stable Patient admitted as inpatient Time spent : 55 min Past Medical History Past Medical History: COPD, Diabetes Mellitus, GERD/Reflux, Hyperlipidemia, Hypertension, Sleep Apnea/CPAP/BIPAP Additional Past Medical History / Comment(s): aortic valve stenosis,bipap with O2 @ 3L,uses O2 @ 2 L nc prn during the day-Stg 4 COPD-unable to lay flat on back. Chronic back pain, hx of jaw fx 1978, History of Any Multi-Drug Resistant Organisms: None Reported Past Surgical History: Back Surgery, Heart Catheterization Additional Past Surgical History / Comment(s): lumbar surgery ; pain procedures, COLONOSCOPY, BRONCHOSCOPY Past Anesthesia/Blood Transfusion Reactions: No Reported Reaction Additional Past Anesthesia/Blood Transfusion Reaction / Comment(s): no hx blood transfusion Past Psychological History: No Psychological Hx Reported Smoking Status: Current every day smoker - Past Family History Mother Family Medical History: No Reported History Father Family Medical History: COPD, Coronary Artery Disease (CAD) Additional Family Medical History / Comment(s): CABG. peripheral vascular disease Medications and Allergies Home Medications Medication Instructions Recorded Confirmed Type Simvastatin 80 mg PO HS 08/14/18 04/08/25 History Omeprazole 40 mg PO QAM 03/14/19 04/15/25 History Lidocaine 4% Cream [Lmx 4] 1 applic TOPICAL BID PRN 12/11/19 04/08/25 History Aspirin 81 mg PO DAILY chew 12/14/19 04/15/25 Rx Albuterol Inhaler [Ventolin Hfa 1 puff INHALATION QID PRN 09/01/24 04/15/25 History Inhaler] Albuterol Nebulized [Ventolin 1 applic INHALATION QID 09/01/24 04/15/25 History Nebulized] Insulin Glargine,Hum.rec.anlog 25 - 30 units SQ HS 09/01/24 04/15/25 History [Lantus Solostar Pen] Mometasone/Formoterol [Dulera 100 1 puff INHALATION BID 09/01/24 04/15/25 History Mcg-5 Mcg Inhaler] SITagliptin [Sitagliptin] 100 mg PO QAM 09/01/24 04/08/25 History predniSONE 15 mg PO QAM 09/01/24 04/15/25 History Furosemide [Lasix] 40 mg PO DAILY 02/04/25 04/08/25 History Potassium Chloride [Klor-Con M20] 20 meq PO DAILY 02/04/25 04/08/25 History Ascorbic Acid [Vitamin C] 1,000 mg PO BID 04/08/25 04/08/25 History Ipratropium/Albuter 20-100Mcg 1 puff INHALATION BID 04/08/25 04/15/25 History [Combivent Respimat 20-100Mcg Inhaler] Mv-Min/Folic/K1/Lycopen/Lutein 1 each PO DAILY 04/08/25 04/08/25 History [Centrum Silver Men Tablet] Zinc Gluconate [Zinc] 50 mg PO DAILY 04/08/25 04/08/25 History traMADol HCL 50 mg PO Q6H PRN 04/08/25 04/08/25 History Acetaminophen Tab [Tylenol] 1,000 mg PO Q6HR PRN tab 04/16/25 Rx Sennosides-Docusate Sodium 2 each PO HS PRN tab 04/16/25 Rx [Senokot-S] metFORMIN HCL [Glucophage] 1,000 mg PO BID #0 04/16/25 04/15/25 Rx Allergies Allergy/AdvReac Type Severity Reaction Status Date / Time empagliflozin Allergy Itching Verified 04/21/25 22:26 glipizide Allergy increased Verified 04/21/25 22:26 lactic acid bupropion [From Wellbutrin] AdvReac Nausea Verified 04/21/25 22:26 codeine AdvReac Nausea Verified 04/21/25 22:26 gabapentin AdvReac Nausea & Verified 04/21/25 22:26 Vomiting pregabalin AdvReac Nausea Verified 04/21/25 22:26 Physical Exam Vitals: Vital Signs Temp Pulse Resp BP Pulse Ox FiO2 04/22/25 04:17 80 60 04/22/25 01:45 101 H 18 121/72 96 04/22/25 00:16 101 H 04/21/25 23:54 94 22 133/83 94 L 04/21/25 23:52 111 H 04/21/25 22:19 98.5 F 105 H 18 117/63 97 Intake and Output 04/21/25 04/21/25 04/22/25 14:59 22:59 06:59 Other: Weight 88.451 kg Results CBC & Chem 7: 04/21/25 23:01 04/21/25 23:01 Labs: Abnormal Lab Results - Last 24 Hours (Table) 04/21/25 04/21/25 04/21/25 Range/Units 23:01 23:01 23:01 WBC 12.98 H (4.50-10.00) 10*3/uL RBC 2.94 L (4.40-5.60) 10*6/uL Hgb 8.3 L (13.0-17.0) g/dL Hct 25.1 L (39.6-50.0) % MPV 9.0 L (9.5-12.2) fL Immature Gran # 0.12 H (0.00-0.04) 10*3/uL Neutrophils # 10.01 H (1.80-7.70) 10*3/uL Monocytes # 1.16 H (0.20-1.00) 10*3/uL APTT 21.9 L (22.0-30.0) sec Sodium 131 L (137-145) mmol/L Chloride 95 L (98-107) mmol/L Carbon Dioxide 31 H (22-30) mmol/L Creatinine 0.54 L (0.66-1.25) mg/dL Glucose 137 H (74-99) mg/dL Troponin I (0.000-0.034) ng/mL C-Reactive Protein 1.3 H (<1.0) mg/dL Total Protein 5.9 L (6.3-8.2) g/dL Ur Specific [place] (1.001-1.035) Urine Protein (Negative) 04/21/25 04/22/25 04/22/25 Range/Units 23:01 02:15 02:15 WBC (4.50-10.00) 10*3/uL RBC (4.40-5.60) 10*6/uL Hgb (13.0-17.0) g/dL Hct (39.6-50.0) % MPV (9.5-12.2) fL Immature Gran # (0.00-0.04) 10*3/uL Neutrophils # (1.80-7.70) 10*3/uL Monocytes # (0.20-1.00) 10*3/uL APTT (22.0-30.0) sec Sodium (137-145) mmol/L Chloride (98-107) mmol/L Carbon Dioxide (22-30) mmol/L Creatinine (0.66-1.25) mg/dL Glucose (74-99) mg/dL Troponin I 0.136 H* 0.160 H* (0.000-0.034) ng/mL C-Reactive Protein (<1.0) mg/dL Total Protein (6.3-8.2) g/dL Ur Specific [place] 1.040 H (1.001-1.035) Urine Protein Trace H (Negative)
[2025-04-22 06:07] LABS: HCT 25.6 % (39.6-50.0); HGB 8.4 g/dL (13.0-17.0); MCH 28.4 pg (27.0-32.0); MCHC 32.8 g/dL (32.0-37.0); MCV 86.5 fL (80.0-97.0); Mean Platelet Volume 8.7 fL (9.5-12.2); Platelet Count 371 10*3/uL (140-440); RBC 2.96 10*6/uL (4.40-5.60); RDW 14.2 % (11.5-14.5); WBC 12.41 10*3/uL (4.50-10.00)
--- NOTE | 2025-04-22 07:18 | XR ---
EXAMINATION TYPE: XR chest 1V portable DATE OF EXAM: 04/22/2025 1:45 AM COMPARISON: 04/16/2025 CLINICAL INDICATION: Male, 64 years old with history of JAMAR, recent TAVR, hx COPD, rhonchi RLLL field , TECHNIQUE: XR chest 1V portable view(s) obtained. FINDINGS: The heart size is normal. The pulmonary vasculature is normal. Small bilateral pleural effusions may be present. There is hyperinflation. Consider COPD. IMPRESSION: 1. Hyperinflation with flattened diaphragms. Minimal pleural effusions may be present. [facility], , 04/22/2025 7:16 AM
[2025-04-22] MEDS ORDERED: CALCIUM CARBONATE 500 MG CHEWABLE PO PRN (08:00)
[2025-04-22] MEDS ORDERED: traMADol 50 MG TAB PO PRN (08:00)
[2025-04-22] MEDS: ASCORBIC ACID 500 MG TAB PO SCH (08:12)
[2025-04-22] MEDS: LINAGLIPTIN 5 MG TABLET PO SCH (08:13)
[2025-04-22] MEDS: PANTOPRAZOLE 40 MG TABLET PO SCH (08:13)
[2025-04-22] MEDS: FUROSEMIDE 10 MG/ML 4 ML VIAL IV SCH (08:14)
[2025-04-22] MEDS: HYDROmorphone 0.5 MG/0.5 ML SYRINGE IVP PRN (08:16)
[2025-04-22 08:22] LABS: Glucose,Whole Blood 176 mg/dL (70-110)
[2025-04-22] MEDS: IPRATROPIUM-ALBUTEROL 3 ML NEB INHALATION SCH ×2 (08:39→12:10)
[2025-04-22] MEDS: ALBUTEROL NEBULIZED 2.5 MG/3 ML INHALATION SCH (08:40)
[2025-04-22] MEDS: SYMBICORT 80-4.5 MCG INHALER INHALATION SCH (08:40)
[2025-04-22] MEDS ORDERED: IPRATROPIUM-ALBUTEROL 3 ML NEB INHALATION PRN (08:41)
[2025-04-22 08:42] LABS: % Iron Saturation 10.65 (15.00-50.00); Ferritin 42.5 ng/mL (22.0-322.0)
[2025-04-22] MEDS: INSULIN LISPRO (HumaLOG) 100 UNIT/ML 10 mL VL SQ SCH (08:54)
[2025-04-22] MEDS ORDERED: ASPIRIN 81 MG PO SCH (09:00)
[2025-04-22] MEDS ORDERED: bisacodyL 5 MG TABLET.DR PO PRN (09:00)
[2025-04-22] MEDS ORDERED: metFORMIN 500 MG TAB PO SCH (09:00)
[2025-04-22] MEDS ORDERED: SENNOSIDES-DOCUSATE SODIUM 1 EACH TAB PO PRN (10:23)
--- NOTE | 2025-04-22 10:29 | P.PN ---
Subjective Progress Note Date: 04/22/25 Hospital Course: 64-year-old male with past medical history of hypertension, hyperlipidemia, type II DM on insulin, advanced COPD with chronic hypoxic respiratory failure on home oxygen, PAD with history of left femoral artery occlusion,, CHET on CPAP, tobacco use disorder, severe symptomatic aortic valve stenosis status post TAVR on 04/15/2025. Patient presents today after he contacted Dr.Dr. Pablo for black discoloration and pain is groin region today and was told to present to the ER for possible abdominal ultrasound to rule out hematoma and bleeding. He denies having any dizziness, lightheadedness, fevers or chills. He noticed that there was some bruising across his lower abdomen and scrotum. He does report abdominal pressure and pain. He did had a bowel movement post TAVR. No change in bowel habits. No nausea or vomiting. He does report bilateral lower extremity swelling . Upon arrival to the ED, patient was saturating 96% on 2 L which is his usual. He was slightly tachycardic with a heart rate of 101 . Blood pressure is stable. Labs done showing a WBC of 12.9, hemoglobin of 8.3 and his last hemoglobin on April 16 was 9 . Sodium of 131, carbon dioxide 31, normal kidney function . Initial set of troponin 0.136 and repeat troponin 0.160. Patient denies having any chest pain and no ischemic changes on EKG. CT of the abdomen and pelvis with runoff showing a large hematoma at the left flank area of around 16.1 cm but no evidence of active contrast extravasation. Study is remarkable for bilateral common femoral artery occlusions and right SFA occlusion p roximally. Patient has high-grade stenosis measuring approximately 80% of the left common iliac artery and occlusion of the left internal iliac artery. Case was discussed with vascular surgery and patient to be seen by vascular. Heparin drip was not started due to the large area of hematoma. Patient to be admitted to be seen by vascular, cardiology. 04/22: Seen and examined in the ER, patient is not in acute distress, sitting on edge of the bed, states that pain is controlled with opioids. He denies shortness of breath, states that he has chronic significant lower extremity edema up to the knees, he has preserved sensation, able to ambulate. His heart rate is in the 90s, blood pressure 108/68, he is satting well on room air during my evaluation. Blood work revealed stable leukocytosis 12.4, stable hemoglobin 8.4, A1c 7.5 improved from before, iron 44, ferritin 42, folate 20, B12 460. Awaiting recommendations from vascular surgery and cardiology. Pertinent positives and negatives as discussed above, a complete review of systems was performed and all other systems are negative. Vitals Signs Reviewed. General: [nontoxic], [no distress], [appears at stated age] Derm: [warm], [dry] Head: [atraumatic], [normocephalic], [symmetric] Eyes: [EOMI], [no lid lag], [anicteric sclera] Mouth: [no lip lesion], [mucus membranes moist] Cardiovascular: [S1S2 reg], [murmur] Lungs: [Manage bilateral breath sounds, no wheezing [no rhonchi, no rales] , [no accessory muscle use] Abdominal: [Lower abdomen bruising, tenderness Ext: [no gross muscle atrophy], [2+ bilateral pitting edema up to the knees], [no contractures] Neuro: [ CN II-XI grossly intact], [no focal neuro deficits] Psych: [Alert], [oriented], [appropriate affect] Assessment and Plan: Left flank hematoma status post TAVR Acute blood loss anemia secondary to above Abdominal pain secondary to above Iron deficiency -Vascular surgery cardiology consulted, appreciate recommendations -Continue to monitor CBC every 12 hours, currently hemoglobin stable, vital signs are stable, transfuse for hemoglobin less than 8 -Start iron 325 daily Bilateral common femoral artery occlusions, right SFA occlusion proximally PAD with history of left femoral artery occlusion -Vascular surgery cardiology consulted, appreciate recommendations -Hold aspirin until cleared by the above specialists hypertension, not on medications, recently discontinued prior to TAVR hyperlipidemia: Continue simvastatin 80 mg nightly type II DM on insulin: Hold sitagliptin 100 mg daily, metformin 100 twice daily advanced COPD with chronic hypoxic respiratory failure on home oxygen, not in acute exacerbation: Continue home formoterol 20 mcg twice daily, DuoNeb every 4 hour scheduled, prednisone 15 mg daily, albuterol inhaler every 6 hours as n eeded, Combivent 20/100 mcg 1 puff twice daily CHET on CPAP, continue CPAP tobacco use disorder recommend smoking cessation severe symptomatic aortic valve stenosis status post TAVR on 04/15/2025 DVT ppx: SCD Code status: Full code Anticipated discharge place: TBD Anticipated discharge time: TBD Objective - Vital Signs Vital signs: Vital Signs Temp 98.3 F 04/22/25 07:00 Pulse 94 04/22/25 08:58 Resp 20 04/22/25 07:00 BP 108/68 04/22/25 07:00 Pulse Ox 96 04/22/25 08:49 FiO2 60 04/22/25 04:17 Intake & Output 04/21/25 04/22/25 04/22/25 18:59 06:59 18:59 Weight 88.451 kg - Labs CBC & Chem 7: 04/22/25 05:47 04/21/25 23:01 Labs: Abnormal Lab Results - Last 24 Hours (Table) 04/21/25 04/21/25 04/21/25 Range/Units 23:01 23:01 23:01 WBC 12.98 H (4.50-10.00) 10*3/uL RBC 2.94 L (4.40-5.60) 10*6/uL Hgb 8.3 L (13.0-17.0) g/dL Hct 25.1 L (39.6-50.0) % MPV 9.0 L (9.5-12.2) fL Immature Gran # 0.12 H (0.00-0.04) 10*3/uL Neutrophils # 10.01 H (1.80-7.70) 10*3/uL Monocytes # 1.16 H (0.20-1.00) 10*3/uL APTT 21.9 L (22.0-30.0) sec Sodium 131 L (137-145) mmol/L Chloride 95 L (98-107) mmol/L Carbon Dioxide 31 H (22-30) mmol/L Creatinine 0.54 L (0.66-1.25) mg/dL Glucose 137 H (74-99) mg/dL POC Glucose (mg/dL) (70-110) mg/dL Hemoglobin A1c (<=6.0) % Iron (65-175) UG/DL % Saturation (15.00-50.00) Troponin I (0.000-0.034) ng/mL C-Reactive Protein 1.3 H (<1.0) mg/dL Total Protein 5.9 L (6.3-8.2) g/dL Ur Specific [place] (1.001-1.035) Urine Protein (Negative) 04/21/25 04/22/25 04/22/25 Range/Units 23:01 02:15 02:15 WBC (4.50-10.00) 10*3/uL RBC (4.40-5.60) 10*6/uL Hgb (13.0-17.0) g/dL Hct (39.6-50.0) % MPV (9.5-12.2) fL Immature Gran # (0.00-0.04) 10*3/uL Neutrophils # (1.80-7.70) 10*3/uL Monocytes # (0.20-1.00) 10*3/uL APTT (22.0-30.0) sec Sodium (137-145) mmol/L Chloride (98-107) mmol/L Carbon Dioxide (22-30) mmol/L Creatinine (0.66-1.25) mg/dL Glucose (74-99) mg/dL POC Glucose (mg/dL) (70-110) mg/dL Hemoglobin A1c (<=6.0) % Iron (65-175) UG/DL % Saturation (15.00-50.00) Troponin I 0.136 H* 0.160 H* (0.000-0.034) ng/mL C-Reactive Protein (<1.0) mg/dL Total Protein (6.3-8.2) g/dL Ur Specific [place] 1.040 H (1.001-1.035) Urine Protein Trace H (Negative) 04/22/25 04/22/25 04/22/25 Range/Units 04:41 05:47 05:47 WBC 12.41 H (4.50-10.00) 10*3/uL RBC 2.96 L (4.40-5.60) 10*6/uL Hgb 8.4 L (13.0-17.0) g/dL Hct 25.6 L (39.6-50.0) % MPV 8.7 L (9.5-12.2) fL Immature Gran # (0.00-0.04) 10*3/uL Neutrophils # (1.80-7.70) 10*3/uL Monocytes # (0.20-1.00) 10*3/uL APTT (22.0-30.0) sec Sodium (137-145) mmol/L Chloride (98-107) mmol/L Carbon Dioxide (22-30) mmol/L Creatinine (0.66-1.25) mg/dL Glucose (74-99) mg/dL POC Glucose (mg/dL) 132 H (70-110) mg/dL Hemoglobin A1c 7.5 H (<=6.0) % Iron (65-175) UG/DL % Saturation (15.00-50.00) Troponin I (0.000-0.034) ng/mL C-Reactive Protein (<1.0) mg/dL Total Protein (6.3-8.2) g/dL Ur Specific [place] (1.001-1.035) Urine Protein (Negative) 04/22/25 04/22/25 Range/Units 05:47 08:11 WBC (4.50-10.00) 10*3/uL RBC (4.40-5.60) 10*6/uL Hgb (13.0-17.0) g/dL Hct (39.6-50.0) % MPV (9.5-12.2) fL Immature Gran # (0.00-0.04) 10*3/uL Neutrophils # (1.80-7.70) 10*3/uL Monocytes # (0.20-1.00) 10*3/uL APTT (22.0-30.0) sec Sodium (137-145) mmol/L Chloride (98-107) mmol/L Carbon Dioxide (22-30) mmol/L Creatinine (0.66-1.25) mg/dL Glucose (74-99) mg/dL POC Glucose (mg/dL) 176 H (70-110) mg/dL Hemoglobin A1c (<=6.0) % Iron 44 L (65-175) UG/DL % Saturation 10.65 L (15.00-50.00) Troponin I (0.000-0.034) ng/mL C-Reactive Protein (<1.0) mg/dL Total Protein (6.3-8.2) g/dL Ur Specific [place] (1.001-1.035) Urine Protein (Negative)
[2025-04-22] MEDS ORDERED: IPRATROPIUM-ALBUTEROL 3 ML NEB INHALATION SCH (12:00)
--- NOTE | 2025-04-22 13:05 | P.CRDCN ---
History of Present Illness Consult date: 04/22/25 Reason for Consult (text): Post TAVR History of present illness: This is a 64-year-old male patient of Dr. Pablo with past medical history of hypertension, hyperlipidemia, diabetes mellitus type 2 tobacco use, severe COPD stage IV, chronic hypoxic respiratory failure on home O2, severe aortic stenosis, family history of coronary artery disease. We have been asked to evaluate the patient as he is post TAVR. Patient states that he came into the hospital due to severe pain in his abdomen across the middle and lower part as well as into his groin and states that his private parts turned black. He does have chronic lower extremity edema which he states he has for over a year and is unable to wear shoes. He states his pain is currently manageable due to the pain medications. Patient underwent TAVR procedure on 04/15/2025. He states in general he has been feeling well since he had the procedure done. Patient quit smoking 1 day prior to TAVR procedure. Blood pressure 127/66, heart rate 67, pulse ox 96% on room air. Patient states he has a follow-up appointment following TAVR scheduled on Sunday. Patient also gives history that because of his extensive PAD, his TAVR surgery was almost called off on the day of. -EKG: Sinus rhythm with right bundle branch block. -Chest x-ray:. Minimal pleural effusions. -CTA with runoff of the bilateral lower extremities: No acute findings in the arteries of the pelvis or bilateral lower extremities. 16.1 cm left flank hematoma. No evidence of active contrast extravasation identified on this exam this is likely postprocedural in nature. Bilateral common femoral artery occlusion. Right SFA occlusion proximally. Hematoma in the left flank is measuring 16.1 x 4.1 x 8.4 cm. Hyperinflation with flattened diaphragm -Laboratory studies: WBC 12.4, hemoglobin 8.4. Hemoglobin is down from 13.7 on 04/09. Sodium 131, potassium 4.5, creatinine 0.54. Troponins 0.136 and 0.16. -Home cardiac medications: Aspirin 81 mg daily, simvastatin 80 mg at bedtime. -Limited echocardiogram performed on 04/15/2025 revealed normal ventricular size and systolic function. TAVR valve was noted. No pericardial effusion. Review Of Systems: At the time of my exam: CONSTITUTIONAL: Denies fever or chills. HEENT: Denies blurred vision, vision changes, or eye pain. Denies hemoptysis CARDIOVASCULAR: Denies chest pain. Denies orthopnea. Denies PND. Denies palpitations RESPIRATORY: Denies shortness of breath. GASTROINTESTINAL: Denies abdominal pain. Denies nausea or vomiting. HEMATOLOGIC: Denies bleeding disorders. GENITOURINARY: Denies any blood in urine. SKIN: Denies puritis. Denies rash. Physical examination: Gen: This is 64-year-old male appears to be in no acute distress. VS: reviewed HEENT: Head is atraumatic, normocephalic. Pupils equal, round. Sclerae is anicteric. NECK: Supple. No JVD. LUNGS: Clear to auscultation. No wheezes or rhonchi. No intercostal retractions. HEART: Regular rate and rhythm. ABDOMEN: Soft No tenderness. EXTREMITIES: 3+ bilat LE edema. No calf tenderness. NEUROLOGICAL: Patient is awake, alert and oriented x3. Assessment: Abdominal pain Left flank hematoma from left inguinal region secondary to instrument manipulation during TAVR Bilat femoral artery occlusions Right SFA occlusion Severe s/p TAVR on 04/15/2025 Known RBBB HTN HLD Severe COPD stage 4 Chronic hypoxic respiratory failure on home O2 Plan: Resume patient's home cardiac medications Start IV Lasix 40 mg qd Monitor I&O weights, monitor lytes and renal function Further recommendations to follow based upon clinical course Thank you kindly for this consultation. Nurse practitioner note has been reviewed, I agree with documented findings and plan of care. Patient was seen and examined. Past Medical History Past Medical History: COPD, Diabetes Mellitus, GERD/Reflux, Hyperlipidemia, Hypertension, Sleep Apnea/CPAP/BIPAP Additional Past Medical History / Comment(s): aortic valve stenosis,bipap with O2 @ 3L,uses O2 @ 2 L nc prn during the day-Stg 4 COPD-unable to lay flat on back. Chronic back pain, hx of jaw fx 1978, History of Any Multi-Drug Resistant Organisms: None Reported Past Surgical History: Back Surgery, Heart Catheterization Additional Past Surgical History / Comment(s): lumbar surgery ; pain procedures, COLONOSCOPY, BRONCHOSCOPY Past Anesthesia/Blood Transfusion Reactions: No Reported Reaction Additional Past Anesthesia/Blood Transfusion Reaction / Comment(s): no hx blood transfusion Past Psychological History: No Psychological Hx Reported Smoking Status: Current every day smoker - Past Family History Mother Family Medical History: No Reported History Father Family Medical History: COPD, Coronary Artery Disease (CAD) Additional Family Medical History / Comment(s): CABG. peripheral vascular disease Medications and Allergies Home Medications Medication Instructions Recorded Confirmed Type Simvastatin 80 mg PO HS 08/14/18 04/22/25 History Omeprazole 40 mg PO DAILY 03/14/19 04/22/25 History Lidocaine 4% Cream [Lmx 4] 1 applic TOPICAL BID PRN 12/11/19 04/22/25 History Albuterol Inhaler [Ventolin Hfa 2 puff INHALATION RT-Q6H PRN 09/01/24 04/22/25 History Inhaler] Insulin Glargine,Hum.rec.anlog 25 - 30 units SQ HS 09/01/24 04/22/25 History [Lantus Solostar Pen] SITagliptin [Sitagliptin] 100 mg PO DAILY 09/01/24 04/22/25 History predniSONE 15 mg PO DAILY 09/01/24 04/22/25 History Ascorbic Acid [Vitamin C] 1,000 mg PO BID 04/08/25 04/22/25 History Ipratropium/Albuter 20-100Mcg 1 puff INHALATION RT-BID 04/08/25 04/22/25 History [Combivent Respimat 20-100Mcg Inhaler] Mv-Min/Folic/K1/Lycopen/Lutein 1 tab PO DAILY 04/08/25 04/22/25 History [Centrum Silver Men Tablet] Zinc Gluconate [Zinc] 50 mg PO DAILY 04/08/25 04/22/25 History traMADol HCL 50 mg PO Q8H PRN 04/08/25 04/22/25 History Acetaminophen Tab [Tylenol] 1,000 mg PO Q6HR PRN tab 04/16/25 04/22/25 Rx metFORMIN HCL [Glucophage] 1,000 mg PO BID #0 04/16/25 04/22/25 Rx Aspirin EC [Ecotrin Low Dose] 81 mg PO DAILY 04/22/25 04/22/25 History Cholecalciferol [Vitamin D3 (25 25 mcg PO DAILY 04/22/25 04/22/25 History Mcg = 1000 Iu)] Formoterol Fumarate 20 mcg INHALATION RT-BID 04/22/25 04/22/25 History Ipratropium-Albuterol Nebulize 3 ml INHALATION RT-Q4H 04/22/25 04/22/25 History [Duoneb 0.5 mg-3 mg/3 ml Soln] Sennosides-Docusate Sodium 2 tab PO HS PRN 04/22/25 04/22/25 History [Senokot-S] Allergies Allergy/AdvReac Type Severity Reaction Status Date / Time empagliflozin Allergy Itching Verified 04/22/25 08:40 glipizide Allergy increased Verified 04/22/25 08:40 lactic acid bupropion [From Wellbutrin] AdvReac Nausea Verified 04/22/25 08:40 codeine AdvReac Nausea Verified 04/22/25 08:40 gabapentin AdvReac Nausea & Verified 04/22/25 08:40 Vomiting pregabalin AdvReac Nausea Verified 04/22/25 08:40 Physical Exam Vitals: Vital Signs Temp Pulse Resp BP Pulse Ox FiO2 04/22/25 05:33 90 18 116/71 96 04/22/25 04:44 91 04/22/25 04:17 80 60 04/22/25 01:45 101 H 18 121/72 96 04/22/25 00:16 101 H 04/21/25 23:54 94 22 133/83 94 L 04/21/25 23:52 111 H 04/21/25 22:19 98.5 F 105 H 18 117/63 97 Intake and Output 04/21/25 04/22/25 04/22/25 22:59 06:59 14:59 Other: Weight 88.451 kg Results 04/22/25 05:47 04/21/25 23:01 Cardiac Enzymes 04/21/25 04/21/25 04/22/25 Range/Units 23:01 23:01 02:15 AST 32 (17-59) U/L Troponin I 0.136 H* 0.160 H* (0.000-0.034) ng/mL Coagulation 04/21/25 Range/Units 23:01 PT 10.4 (10.0-12.5) sec APTT 21.9 L (22.0-30.0) sec CBC 04/21/25 04/22/25 Range/Units 23:01 05:47 WBC 12.98 H 12.41 H (4.50-10.00) 10*3/uL RBC 2.94 L 2.96 L (4.40-5.60) 10*6/uL Hgb 8.3 L 8.4 L (13.0-17.0) g/dL Hct 25.1 L 25.6 L (39.6-50.0) % Plt Count 367 371 (140-440) 10*3/uL Comprehensive Metabolic Panel 04/21/25 Range/Units 23:01 Sodium 131 L (137-145) mmol/L Potassium 4.5 (3.5-5.1) mmol/L Chloride 95 L (98-107) mmol/L Carbon Dioxide 31 H (22-30) mmol/L BUN 18 (9-20) mg/dL Creatinine 0.54 L (0.66-1.25) mg/dL Glucose 137 H (74-99) mg/dL Calcium 9.5 (8.4-10.2) mg/dL AST 32 (17-59) U/L ALT 27 (4-49) U/L Alkaline Phosphatase 50 (38-126) U/L Total Protein 5.9 L (6.3-8.2) g/dL Albumin 3.6 (3.5-5.0) g/dL Current Medications Generic Name Dose Route Start Last Admin Trade Name Freq PRN Reason Stop Dose Admin Acetaminophen 1,000 mg 04/22/25 03:48 Acetaminophen Tab 500 Mg Tab PO Q6HR PRN Fever And/ Or Mild Pain (1-3) Al Hydroxide/Mg Hydroxide 15 ml 04/22/25 03:57 Mag Hydrox/Al Hydrox/Simeth 30 Ml Cup PO Q6HR PRN Indigestion Albuterol Sulfate 2.5 mg 04/22/25 08:00 Albuterol Nebulized 2.5 Mg/3 Ml INHALATION RT-QID JÚNIOR Albuterol/Ipratropium 3 ml 04/22/25 08:00 Ipratropium-Albuterol 3 Ml Neb INHALATION RT-BID JÚNIOR Ascorbic Acid 1,000 mg 04/22/25 09:00 Ascorbic Acid 500 Mg Tab PO BID JÚNIOR Atorvastatin Calcium 40 mg 04/22/25 04:00 04/22/25 05:24 Atorvastatin 40 Mg Tab PO 40 mg HS JÚNIOR Administration Bisacodyl 5 mg 04/22/25 09:00 Bisacodyl 5 Mg Tablet.Dr PO DAILY PRN Constipation Budesonide/Formoterol Fumarate 2 puff 04/22/25 08:00 Symbicort 80-4.5 Mcg Inhaler INHALATION RT-BID [facility] Calcium Carbonate/Glycine 1,000 mg 04/22/25 08:00 Calcium Carbonate 500 Mg Chewable PO Q4HR PRN Dyspepsia Hydromorphone HCl 0.5 mg 04/22/25 03:57 Hydromorphone 0.5 Mg/0.5 Ml Syringe IVP Q3HR PRN Moderate Pain (Scale 4 to 6) Insulin Glargine 30 unit 04/22/25 21:00 Insulin Glargine (Lantus) 100 Unit/Ml Syr SQ HS [facility] Insulin Human Lispro 0 unit 04/22/25 07:30 Insulin Lispro (Humalog) 100 Unit/Ml 10 Ml Vl SQ AC-TID [facility] Protocol Linagliptin 5 mg 04/22/25 09:00 Linagliptin 5 Mg Tablet PO QAM [facility] Naloxone HCl 0.2 mg 04/22/25 03:57 Naloxone 0.4 Mg/Ml 1 Ml Vial IV Q2M PRN Opioid Reversal Ondansetron HCl 4 mg 04/22/25 03:57 Ondansetron 4 Mg/2 Ml Vial IVP Q8HR PRN Nausea And Vomiting Pantoprazole Sodium 40 mg 04/22/25 09:00 Pantoprazole 40 Mg Tablet PO QAM [facility] Tizanidine HCl 4 mg 04/22/25 04:05 Tizanidine 4 Mg Tab PO BID PRN Muscle Spasticity Tramadol HCl 50 mg 04/22/25 08:00 Tramadol 50 Mg Tab PO Q8HR PRN Pain Intake and Output 04/21/25 04/22/25 04/22/25 22:59 06:59 14:59 Other: Weight 88.451 kg 04/22/25 05:47 04/21/25 23:01
[2025-04-22 13:14] LABS: Glucose,Whole Blood 145 mg/dL (70-110)
[2025-04-22] MEDS: FERROUS SULFATE 325 MG TAB PO SCH (13:44)
[2025-04-22 17:14] LABS: Glucose,Whole Blood 240 mg/dL (70-110)
--- NOTE | 2025-04-22 19:58 | P.GSCN ---
History of Present Illness Consult date: 04/22/25 History of present illness: Aldo is a 64-year-old male who presented to the hospital with shortness of breath and pain. He has been having worsening lower abdominal/groin pain since his TAVR procedure recently. He has significant bruising through this. He denies any significant changes in his lower extremity pains but does note his legs feel cooler to the touch. He is able to ambulate and does have sensation in his feet. He has a significant medical history of hypertension, hyperlipidemia, diabetes, tobacco abuse, severe COPD. He has chronic lower extremity edema and has had this for about a year without significant changes. Right after the procedure and postoperative day 1 he was feeling well upon discharge he felt like his legs were at their normal and does not feel overly different from this other than the groin pains he is having Past Medical History Past Medical History: COPD, Diabetes Mellitus, GERD/Reflux, Hyperlipidemia, Hypertension, Sleep Apnea/CPAP/BIPAP Additional Past Medical History / Comment(s): aortic valve stenosis,bipap with O2 @ 3L,uses O2 @ 2 L nc prn during the day-Stg 4 COPD-unable to lay flat on back. Chronic back pain, hx of jaw fx 1978, History of Any Multi-Drug Resistant Organisms: None Reported Past Surgical History: Back Surgery, Heart Catheterization Additional Past Surgical History / Comment(s): lumbar surgery ; pain procedures, COLONOSCOPY, BRONCHOSCOPY Past Anesthesia/Blood Transfusion Reactions: No Reported Reaction Additional Past Anesthesia/Blood Transfusion Reaction / Comm: no hx blood tra nsfusion Past Psychological History: No Psychological Hx Reported Smoking Status: Current every day smoker - Past Family History Mother Family Medical History: No Reported History Father Family Medical History: COPD, Coronary Artery Disease (CAD) Additional Family Medical History / Comment(s): CABG. peripheral vascular disease Medications and Allergies Home Medications Medication Instructions Recorded Confirmed Type Simvastatin 80 mg PO HS 08/14/18 04/22/25 History Omeprazole 40 mg PO DAILY 03/14/19 04/22/25 History Lidocaine 4% Cream [Lmx 4] 1 applic TOPICAL BID PRN 12/11/19 04/22/25 History Albuterol Inhaler [Ventolin Hfa 2 puff INHALATION RT-Q6H PRN 09/01/24 04/22/25 H istory Inhaler] Insulin Glargine,Hum.rec.anlog 25 - 30 units SQ HS 09/01/24 04/22/25 History [Lantus Solostar Pen] SITagliptin [Sitagliptin] 100 mg PO DAILY 09/01/24 04/22/25 History predniSONE 15 mg PO DAILY 09/01/24 04/22/25 History Ascorbic Acid [Vitamin C] 1,000 mg PO BID 04/08/25 04/22/25 History Ipratropium/Albuter 20-100Mcg 1 puff INHALATION RT-BID 04/08/25 04/22/25 History [Combivent Respimat 20-100Mcg Inhaler] Mv-Min/Folic/K1/Lycopen/Lutein 1 tab PO DAILY 04/08/25 04/22/25 History [Centrum Silver Men Tablet] Zinc Gluconate [Zinc] 50 mg PO DAILY 04/08/25 04/22/25 History traMADol HCL 50 mg PO Q8H PRN 04/08/25 04/22/25 History Acetaminophen Tab [Tylenol] 1,000 mg PO Q6HR PRN tab 04/16/25 04/22/25 Rx metFORMIN HCL [Glucophage] 1,000 mg PO BID #0 04/16/25 04/22/25 Rx Aspirin EC [Ecotrin Low Dose] 81 mg PO DAILY 04/22/25 04/22/25 History Cholecalciferol [Vitamin D3 (25 25 mcg PO DAILY 04/22/25 04/22/25 History Mcg = 1000 Iu)] Formoterol Fumarate 20 mcg INHALATION RT-BID 04/22/25 04/22/25 History Ipratropium-Albuterol Nebulize 3 ml INHALATION RT-Q4H 04/22/25 04/22/25 History [Duoneb 0.5 mg-3 mg/3 ml Soln] Sennosides-Docusate Sodium 2 tab PO HS PRN 04/22/25 04/22/25 History [Senokot-S] Allergies Allergy/AdvReac Type Severity Reaction Status Date / Time empagliflozin Allergy Itching Verified 04/22/25 08:40 glipizide Allergy increased Verified 04/22/25 08:40 lactic acid bupropion [From Wellbutrin] AdvReac Nausea Verified 04/22/25 08:40 codeine AdvReac Nausea Verified 04/22/25 08:40 gabapentin AdvReac Nausea & Verified 04/22/25 08:40 Vomiting pregabalin AdvReac Nausea Verified 04/22/25 08:40 Surgical - Exam Vital Signs Temp Pulse Resp BP Pulse Ox 98.5 F 105 H 18 117/63 97 04/21/25 22:19 04/21/25 22:19 04/21/25 22:19 04/21/25 22:19 04/21/25 22:19 Constitutional: Moderate respiratory distress appearing chronic, requiring oxygen Eyes: Anicteric sclerae, moist conjunctiva, no lid-lag HENMT: Normocephalic / Atraumatic Oropharynx clear Neck: Supple, full range of motion, nontender, no masses, large Abdominal: Soft, Nontender, nondistended large area of ecchymosis from the middle abdomen and extending to the lateral portions of the left side Skin: Normal temperature, tone, texture, turgor. No rashes Extremities: No digital cyanosis No clubbing. Vascular: Palpable radialpulses bilaterally difficult to palpate femoral pulses, nonpalpable pedal pulses Psychiatric: AOx3 Neuro: Cranial nerves II-XII grossly intact Results I personally reviewed the CT imaging, it is difficult due to poor contrast timing however there is evidence of significant calcific disease in the femoral arteries bilaterally with potential occlusions and quick reconstitution. There is definitely an occlusion of the left femoral artery however uncertain if this is an acute issue versus just a chronic issue - Labs 04/22/25 05:47 04/21/25 23:01 Abnormal Lab Results - Last 24 Hours (Table) 04/21/25 04/21/25 04/21/25 Range/Units 23:01 23:01 23:01 WBC 12.98 H (4.50-10.00) 10*3/uL RBC 2.94 L (4.40-5.60) 10*6/uL Hgb 8.3 L (13.0-17.0) g/dL Hct 25.1 L (39.6-50.0) % MPV 9.0 L (9.5-12.2) fL Immature Gran # 0.12 H (0.00-0.04) 10*3/uL Neutrophils # 10.01 H (1.80-7.70) 10*3/uL Monocytes # 1.16 H (0.20-1.00) 10*3/uL APTT 21.9 L (22.0-30.0) sec Sodium 131 L (137-145) mmol/L Chloride 95 L (98-107) mmol/L Carbon Dioxide 31 H (22-30) mmol/L Creatinine 0.54 L (0.66-1.25) mg/dL Glucose 137 H (74-99) mg/dL POC Glucose (mg/dL) (70-110) mg/dL Hemoglobin A1c (<=6.0) % Iron (65-175) UG/DL % Saturation (15.00-50.00) Troponin I (0.000-0.034) ng/mL C-Reactive Protein 1.3 H (<1.0) mg/dL Total Protein 5.9 L (6.3-8.2) g/dL Ur Specific [place] (1.001-1.035) Urine Protein (Negative) 04/21/25 04/22/25 04/22/25 Range/Units 23:01 02:15 02:15 WBC (4.50-10.00) 10*3/uL RBC (4.40-5.60) 10*6/uL Hgb (13.0-17.0) g/dL Hct (39.6-50.0) % MPV (9.5-12.2) fL Immature Gran # (0.00-0.04) 10*3/uL Neutrophils # (1.80-7.70) 10*3/uL Monocytes # (0.20-1.00) 10*3/uL APTT (22.0-30.0) sec Sodium (137-145) mmol/L Chloride (98-107) mmol/L Carbon Dioxide (22-30) mmol/L Creatinine (0.66-1.25) mg/dL Glucose (74-99) mg/dL POC Glucose (mg/dL) (70-110) mg/dL Hemoglobin A1c (<=6.0) % Iron (65-175) UG/DL % Saturation (15.00-50.00) Troponin I 0.136 H* 0.160 H* (0.000-0.034) ng/mL C-Reactive Protein (<1.0) mg/dL Total Protein (6.3-8.2) g/dL Ur Specific [place] 1.040 H (1.001-1.035) Urine Protein Trace H (Negative) 04/22/25 04/22/25 04/22/25 Range/Units 04:41 05:47 05:47 WBC 12.41 H (4.50-10.00) 10*3/uL RBC 2.96 L (4.40-5.60) 10*6/uL Hgb 8.4 L (13.0-17.0) g/dL Hct 25.6 L (39.6-50.0) % MPV 8.7 L (9.5-12.2) fL Immature Gran # (0.00-0.04) 10*3/uL Neutrophils # (1.80-7.70) 10*3/uL Monocytes # (0.20-1.00) 10*3/uL APTT (22.0-30.0) sec Sodium (137-145) mmol/L Chloride (98-107) mmol/L Carbon Dioxide (22-30) mmol/L Creatinine (0.66-1.25) mg/dL Glucose (74-99) mg/dL POC Glucose (mg/dL) 132 H (70-110) mg/dL Hemoglobin A1c 7.5 H (<=6.0) % Iron (65-175) UG/DL % Saturation (15.00-50.00) Troponin I (0.000-0.034) ng/mL C-Reactive Protein (<1.0) mg/dL Total Protein (6.3-8.2) g/dL Ur Specific [place] (1.001-1.035) Urine Protein (Negative) 04/22/25 04/22/25 04/22/25 Range/Units 05:47 08:11 13:13 WBC (4.50-10.00) 10*3/uL RBC (4.40-5.60) 10*6/uL Hgb (13.0-17.0) g/dL Hct (39.6-50.0) % MPV (9.5-12.2) fL Immature Gran # (0.00-0.04) 10*3/uL Neutrophils # (1.80-7.70) 10*3/uL Monocytes # (0.20-1.00) 10*3/uL APTT (22.0-30.0) sec Sodium (137-145) mmol/L Chloride (98-107) mmol/L Carbon Dioxide (22-30) mmol/L Creatinine (0.66-1.25) mg/dL Glucose (74-99) mg/dL POC Glucose (mg/dL) 176 H 145 H (70-110) mg/dL Hemoglobin A1c (<=6.0) % Iron 44 L (65-175) UG/DL % Saturation 10.65 L (15.00-50.00) Troponin I (0.000-0.034) ng/mL C-Reactive Protein (<1.0) mg/dL Total Protein (6.3-8.2) g/dL Ur Specific [place] (1.001-1.035) Urine Protein (Negative) 04/22/25 Range/Units 17:12 WBC (4.50-10.00) 10*3/uL RBC (4.40-5.60) 10*6/uL Hgb (13.0-17.0) g/dL Hct (39.6-50.0) % MPV (9.5-12.2) fL Immature Gran # (0.00-0.04) 10*3/uL Neutrophils # (1.80-7.70) 10*3/uL Monocytes # (0.20-1.00) 10*3/uL APTT (22.0-30.0) sec Sodium (137-145) mmol/L Chloride (98-107) mmol/L Carbon Dioxide (22-30) mmol/L Creatinine (0.66-1.25) mg/dL Glucose (74-99) mg/dL POC Glucose (mg/dL) 240 H (70-110) mg/dL Hemoglobin A1c (<=6.0) % Iron (65-175) UG/DL % Saturation (15.00-50.00) Troponin I (0.000-0.034) ng/mL C-Reactive Protein (<1.0) mg/dL Total Protein (6.3-8.2) g/dL Ur Specific [place] (1.001-1.035) Urine Protein (Negative) Diabetes panel 04/21/25 04/22/25 Range/Units 23:01 05:47 Sodium 131 L (137-145) mmol/L Potassium 4.5 (3.5-5.1) mmol/L Chloride 95 L (98-107) mmol/L Carbon Dioxide 31 H (22-30) mmol/L BUN 18 (9-20) mg/dL Creatinine 0.54 L (0.66-1.25) mg/dL Glucose 137 H (74-99) mg/dL Hemoglobin A1c 7.5 H (<=6.0) % Calcium 9.5 (8.4-10.2) mg/dL AST 32 (17-59) U/L ALT 27 (4-49) U/L Alkaline Phosphatase 50 (38-126) U/L Total Protein 5.9 L (6.3-8.2) g/dL Albumin 3.6 (3.5-5.0) g/dL Calcium panel 04/21/25 Range/Units 23:01 Calcium 9.5 (8.4-10.2) mg/dL Albumin 3.6 (3.5-5.0) g/dL Pituitary panel 04/21/25 Range/Units 23:01 Sodium 131 L (137-145) mmol/L Potassium 4.5 (3.5-5.1) mmol/L Chloride 95 L (98-107) mmol/L Carbon Dioxide 31 H (22-30) mmol/L BUN 18 (9-20) mg/dL Creatinine 0.54 L (0.66-1.25) mg/dL Glucose 137 H (74-99) mg/dL Calcium 9.5 (8.4-10.2) mg/dL Adrenal panel 04/21/25 Range/Units 23:01 Sodium 131 L (137-145) mmol/L Potassium 4.5 (3.5-5.1) mmol/L Chloride 95 L (98-107) mmol/L Carbon Dioxide 31 H (22-30) mmol/L BUN 18 (9-20) mg/dL Creatinine 0.54 L (0.66-1.25) mg/dL Glucose 137 H (74-99) mg/dL Calcium 9.5 (8.4-10.2) mg/dL Total Bilirubin 0.7 (0.2-1.3) mg/dL AST 32 (17-59) U/L ALT 27 (4-49) U/L Alkaline Phosphatase 50 (38-126) U/L Total Protein 5.9 L (6.3-8.2) g/dL Albumin 3.6 (3.5-5.0) g/dL Assessment and Plan Assessment: Severe peripheral vascular disease Recent TAVR Left flank hematoma Abdominal pain secondary to above Anemia secondary to above Plan: At this point is difficult to fully discern the patient's symptomatology, I believe the majority is more chronic in appearance however based on the appearance on CT scan cannot fully rule out a possible acute component however this time the patient does not seem to be having severe new onset pain in his lower extremities. Will continue to follow, unfortunately this time unable to initiate heparin drip due to large hematoma, will reevaluate daily Discussed with the family that he may need intervention in regards to femoral endarterectomies, he is to let us know if there are any significant changes in his lower extremity pain or ability to ambulate I was able to review images And operative report from recent procedure, it appears the patient had severe right iliofemoral disease and underwent iliac stenting which then showed improvement of flow to the femoral vessel. On the left there is evidence of again severe iliofemoral disease with occlusion at the femoral head for the full length of the common femoral artery and reconstitution of the superficial femoral and deep femoral arteries consistent with the chronic appearing findings..
[2025-04-22 21:15] LABS: Glucose,Whole Blood 80 mg/dL (70-110)
[2025-04-22 21:18] LABS: HCT 26.1 % (39.6-50.0); HGB 8.6 g/dL (13.0-17.0); MCH 28.5 pg (27.0-32.0); MCV 86.4 fL (80.0-97.0); Mean Platelet Volume 8.5 fL (9.5-12.2); Platelet Count 392 10*3/uL (140-440); RBC 3.02 10*6/uL (4.40-5.60); RDW 14.3 % (11.5-14.5); WBC 14.29 10*3/uL (4.50-10.00)
[2025-04-22] MEDS: INSULIN GLARGINE (LANTUS) 100 UNIT/ML SYR SQ SCH (21:36)
[2025-04-22] MEDS: FORMOTEROL FUMARATE 20 MCG/2 ML NEBU INHALATION SCH (21:52)
[2025-04-23 05:56] LABS: Glucose,Whole Blood 160 mg/dL (70-110)
[2025-04-23 06:13] LABS: HCT 27.6 % (39.6-50.0); HGB 8.9 g/dL (13.0-17.0); MCH 28.4 pg (27.0-32.0); MCHC 32.2 g/dL (32.0-37.0); MCV 88.2 fL (80.0-97.0); Mean Platelet Volume 8.6 fL (9.5-12.2); Platelet Count 401 10*3/uL (140-440); RBC 3.13 10*6/uL (4.40-5.60); RDW 14.6 % (11.5-14.5); WBC 11.29 10*3/uL (4.50-10.00)
[2025-04-23 06:29] LABS: African American GFR (CKD) >90 (>60 ml/min/1.73 sqM); Anion Gap 3 mmol/L; Blood Urea Nitrogen 13 mg/dL (9-20); Calcium 9.2 mg/dL (8.4-10.2); Carbon Dioxide 37 mmol/L (22-30); Chloride 93 mmol/L (98-107); Glucose 140 mg/dL (74-99); Non-African American GFR(CKD) >90 (>60 ml/min/1.73 sqM); Potassium 3.9 mmol/L (3.5-5.1); Sodium 133 mmol/L (137-145)
[2025-04-23 09:46] VITALS: TEMP 97.8
[2025-04-23] MEDS: predniSONE 10 MG TAB PO SCH (09:57)
[2025-04-23] MEDS: FUROSEMIDE 10 MG/ML 4 ML VIAL IV SCH (09:58)
[2025-04-23] MEDS: polyethylene glycoL 3350 17 GM POWD.PACK PO SCH (10:13)
--- NOTE | 2025-04-23 11:17 | P.PN ---
Subjective Progress Note Date: 04/23/25 Patient is seen and examined today as a follow-up. He is sitting up in the bedside recliner at this time. Currently has oxygen per nasal cannula. No acute changes through the night. Denies any pain down his lower extremities, has been up and ambulating with his walker. Objective - Vital Signs Vital signs: Vital Signs Temp 97.9 F 04/23/25 03:09 Pulse 88 04/23/25 08:50 Resp 16 04/23/25 03:09 BP 122/68 04/23/25 03:09 Pulse Ox 96 04/23/25 03:09 FiO2 60 04/22/25 04:17 Intake & Output 04/22/25 04/23/25 04/23/25 18:59 06:59 18:59 Intake Total 222 Balance 222 Weight 94.6 kg Intake: Oral 222 Other: # Voids 2 - Exam General appearance: The patient is alert, oriented, appears in no acute distress. HET: Head is normocephalic and atraumatic. Pupils are equal and reactive. Neck: Supple. Heart: Regular. Lungs: Equal expansion, normal respiratory effort. Abdomen: Soft, tender lower abdomen, nondistended. Ecchymosis along the lower abdomen. Extremities: Bilateral lower extremity pitting edema. Right greater than left. Lower extremities slightly cool to the touch. Good capillary refill. Monophasic PT and DP signals. Left groin with ecchymosis. Neurological: No focal deficits. Strength and sensation are grossly intact. - Labs CBC & Chem 7: 04/23/25 06:02 04/23/25 06:02 Labs: Abnormal Lab Results - Last 24 Hours (Table) 04/22/25 04/22/25 04/22/25 Range/Units 13:13 17:12 21:07 WBC 14.29 H (4.50-10.00) 10*3/uL RBC 3.02 L (4.40-5.60) 10*6/uL Hgb 8.6 L (13.0-17.0) g/dL Hct 26.1 L (39.6-50.0) % MPV 8.5 L (9.5-12.2) fL Sodium (137-145) mmol/L Chloride (98-107) mmol/L Carbon Dioxide (22-30) mmol/L Creatinine (0.66-1.25) mg/dL Glucose (74-99) mg/dL POC Glucose (mg/dL) 145 H 240 H (70-110) mg/dL 04/23/25 04/23/25 04/23/25 Range/Units 05:53 06:02 06:02 WBC 11.29 H (4.50-10.00) 10*3/uL RBC 3.13 L (4.40-5.60) 10*6/uL Hgb 8.9 L (13.0-17.0) g/dL Hct 27.6 L (39.6-50.0) % MPV 8.6 L (9.5-12.2) fL Sodium 133 L (137-145) mmol/L Chloride 93 L (98-107) mmol/L Carbon Dioxide 37 H (22-30) mmol/L Creatinine 0.57 L (0.66-1.25) mg/dL Glucose 140 H (74-99) mg/dL POC Glucose (mg/dL) 160 H (70-110) mg/dL Assessment and Plan Assessment: Severe peripheral vascular disease Recent TAVR Left flank hematoma Abdominal pain secondary to above Anemia secondary to above Severe peripheral vascular disease Recent TAVR Left flank hematoma Abdominal pain secondary to above Anemia secondary to above Plan: Patient has been cleared for discharge from a cardiology and medical team. Discussed with patient findings were likely chronic in nature as he has no acute new onset of lower extremity pain. He will need outpatient follow-up with vascular surgery possibly requiring femoral endarterectomy. Hemoglobin stable at 8.9. Patient is following up with Dr. Pablo tomorrow from cardiology. Thank you for this consultation. The impression and plan of care has been dictated as directed. Dr. Jagdeep Gaffney I performed a history and examination of this patient, discussed the same with the dictator. I agree with the dictator's note ,documented as a scribe. Any additional findings or plans will be noted.
[2025-04-23 11:50] LABS: Glucose,Whole Blood 220 mg/dL (70-110)
[2025-04-23 12:03] VITALS: BP 139/75; PULSE 98; RESP 18
--- NOTE | 2025-04-23 12:27 | P.DS ---
Providers Date of admission: 04/22/25 03:57 Attending physician: Ravinder Ram MD Consults: 04/22/25 03:57 Consult Physician Urgent Consulting Provider: Tomi Pablo Consult Reason/Comments: Post TAVR Do you want consulting provider notified?: Yes, Notify in am Consult Physician Urgent Consulting Provider: Timothy Carrasquillo Consult Reason/Comments: bilateral LE arterial occlusions Do you want consulting provider notified?: Yes, Notify in am Primary care physician: Cecilio Georges Hospital Course: Discharge Diagnosis: Left flank hematoma status post TAVR Acute blood loss anemia secondary to above Abdominal pain secondary to above Iron deficiency Bilateral common femoral artery occlusions, right SFA occlusion proximally, likely chronic PAD with history of left femoral artery occlusion Hypertension Hyperlipidemia Type II DM Advanced COPD with chronic hypoxic respiratory failure on home oxygen, not on glucose patient CHET on CPAP Tobacco use disorder Severe symptomatic aortic valve stenosis status post TAVR 04/15/2025 Hospital Course: 64-year-old male with past medical history of hypertension, hyperlipidemia, type II DM on insulin, advanced COPD with chronic hypoxic respiratory failure on home oxygen, PAD with history of left femoral artery occlusion,, CHET on CPAP, tobacco use disorder, severe symptomatic aortic valve stenosis status post TAVR on 04/15/2025. Patient presents today after he contacted Dr.Dr. Pablo for black discoloration and pain is groin region today and was told to present to the ER for possible abdominal ultrasound to rule out hematoma and bleeding. He denies having any dizziness, lightheadedness, fevers or chills. He noticed that there was some bruising across his lower abdomen and scrotum. He does report abdominal pressure and pain. He did had a bowel movement post TAVR. No change in bowel habits. No nausea or vomiting. He does report bilateral lower extremity swelling . Upon arrival to the ED, patient was saturating 96% on 2 L which is his usual. He was slightly tachycardic with a heart rate of 101 . Blood pressure is stable. Labs done showing a WBC of 12.9, hemoglobin of 8.3 and his last hemoglobin on April 16 was 9 . Sodium of 131, carbon dioxide 31, normal kidney function . Initial set of troponin 0.136 and repeat troponin 0.160. Patient denies having any chest pain and no ischemic changes on EKG. CT of the abdomen and pelvis with runoff showing a large hematoma at the left flank area of around 16.1 cm but no evidence of active contrast extravasation. Study is remarkable for bilateral common femoral artery occlusions and right SFA occlusion proximally. Patient has high-grade stenosis measuring approximately 80% of the left common iliac artery and occlusion of the left internal iliac artery. Case was discussed with vascular surgery and patient to be seen by vascular. Heparin drip was not started due to the large area of hematoma. Patient to be admitted to be seen by vascular, cardiology. His hemoglobin remained stable throughout the hospitalization at around 8.4, A1c 7.5, improving, iron 44, ferritin 42, folate 20, B12 460, was started on iron supplement 325 daily. Cardiology provided with IV Lasix for lower extremity edema, recommended to continue current cardiac medications. Per vascular surgery, findings were likely chronic in nature as patient does not have any acute lower extremity pain, sensation changes, he needs outpatient follow-up for possible femoral endarterectomy, was also cleared for discharge. I resumed patient's aspirin at discharge, discussed with cardiology, will provide with 3- day supplies of [place] as well as 7 days of Lasix 40 oral. Recommend to follow- up closely with PCP for repeat blood count. Patient seen and examined at bedside.[] Vital signs reviewed and stable. General: [nontoxic], [no distress], [appears at stated age] Derm: [warm], [dry] Head: [atraumatic], [normocephalic], [symmetric] Eyes: [EOMI], [no lid lag], [anicteric sclera] Mouth: [no lip lesion], [mucus membranes moist] Cardiovascular: [S1S2 reg], [murmur] Lungs: [Manage bilateral breath sounds, no wheezing [no rhonchi, no rales] , [no accessory muscle use] Abdominal: [Lower abdomen bruising, tenderness Ext: [no gross muscle atrophy], [2+ bilateral pitting edema up to the knees], [no contractures] Neuro: [ CN II-XI grossly intact], [no focal neuro deficits] Psych: [Alert], [oriented], [appropriate affect] A total of 40 minutes of time were spent preparing this complex discharge summary. Patient was discharged on 04/23/2025. Patient Condition at Discharge: Stable Plan - Discharge Summary Discharge Rx Participant: No New Discharge Prescriptions: New Ferrous Sulfate [Iron (65 MG Elemental)] 325 mg PO W/LUNCH #30 tab Furosemide [Lasix] 40 mg PO DAILY #7 tablet HYDROcodone/APAP 5-325MG [[place] 5-325] 1 tab PO Q6HR PRN 3 Days #12 tab PRN Reason: Pain tiZANidine [Zanaflex] 4 mg PO BID PRN #14 tab PRN Reason: Muscle Spasticity Continue Simvastatin 80 mg PO HS Omeprazole 40 mg PO DAILY Lidocaine 4% Cream [Lmx 4] 1 applic TOPICAL BID PRN PRN Reason: Pain SITagliptin [Sitagliptin] 100 mg PO DAILY Insulin Glargine,Hum.rec.anlog [Lantus Solostar Pen] 25 - 30 units SQ HS predniSONE 15 mg PO DAILY Zinc Gluconate [Zinc] 50 mg PO DAILY Ipratropium/Albuter 20-100Mcg [Combivent Respimat 20-100Mcg Inhaler] 1 puff INHALATION RT-BID metFORMIN HCL [Glucophage] 1,000 mg PO BID #0 Ipratropium-Albuterol Nebulize [Duoneb 0.5 mg-3 mg/3 ml Soln] 3 ml INHALATION RT-Q4H Sennosides-Docusate Sodium [Senokot-S] 2 tab PO HS PRN PRN Reason: Constipation Formoterol Fumarate 20 mcg INHALATION RT-BID Albuterol Inhaler [Ventolin Hfa Inhaler] 2 puff INHALATION RT-Q6H PRN PRN Reason: Shortness Of Breath Ascorbic Acid [Vitamin C] 1,000 mg PO BID Mv-Min/Folic/K1/Lycopen/Lutein [Centrum Silver Men Tablet] 1 tab PO DAILY Acetaminophen Tab [Tylenol] 1,000 mg PO Q6HR PRN tab PRN Reason: Fever And/ Or Mild Pain (1-3) Cholecalciferol [Vitamin D3 (25 Mcg = 1000 Iu)] 25 mcg PO DAILY Aspirin EC [Ecotrin Low Dose] 81 mg PO DAILY Discontinued traMADol HCL 50 mg PO Q8H PRN PRN Reason: Pain Discharge Medication List Simvastatin 80 mg PO HS 08/14/18 [History] Omeprazole 40 mg PO DAILY 03/14/19 [History] Lidocaine 4% Cream [Lmx 4] 1 applic TOPICAL BID PRN 12/11/19 [History] Albuterol Inhaler [Ventolin Hfa Inhaler] 2 puff INHALATION RT-Q6H PRN 09/01/24 [History] Insulin Glargine,Hum.rec.anlog [Lantus Solostar Pen] 25 - 30 units SQ HS 09/01/24 [History] SITagliptin [Sitagliptin] 100 mg PO DAILY 09/01/24 [History] predniSONE 15 mg PO DAILY 09/01/24 [History] Ascorbic Acid [Vitamin C] 1,000 mg PO BID 04/08/25 [History] Ipratropium/Albuter 20-100Mcg [Combivent Respimat 20-100Mcg Inhaler] 1 puff INHALATION RT-BID 04/08/25 [History] Mv-Min/Folic/K1/Lycopen/Lutein [Centrum Silver Men Tablet] 1 tab PO DAILY 04/08/25 [History] Zinc Gluconate [Zinc] 50 mg PO DAILY 04/08/25 [History] Acetaminophen Tab [Tylenol] 1,000 mg PO Q6HR PRN tab 04/16/25 [Rx] metFORMIN HCL [Glucophage] 1,000 mg PO BID #0 04/16/25 [Rx] Aspirin EC [Ecotrin Low Dose] 81 mg PO DAILY 04/22/25 [History] Cholecalciferol [Vitamin D3 (25 Mcg = 1000 Iu)] 25 mcg PO DAILY 04/22/25 [History] Formoterol Fumarate 20 mcg INHALATION RT-BID 04/22/25 [History] Ipratropium-Albuterol Nebulize [Duoneb 0.5 mg-3 mg/3 ml Soln] 3 ml INHALATION RT-Q4H 04/22/25 [History] Sennosides-Docusate Sodium [Senokot-S] 2 tab PO HS PRN 04/22/25 [History] Ferrous Sulfate [Iron (65 MG Elemental)] 325 mg PO W/LUNCH #30 tab 04/23/25 [Rx] Furosemide [Lasix] 40 mg PO DAILY #7 tablet 04/23/25 [Rx] HYDROcodone/APAP 5-325MG [[place] 5-325] 1 tab PO Q6HR PRN 3 Days #12 tab 04/23/25 [Rx] tiZANidine [Zanaflex] 4 mg PO BID PRN #14 tab 04/23/25 [Rx] Follow up Appointment(s)/Referral(s): Tomi Pablo DO [STAFF PHYSICIAN] - 1 Week Timothy Carrasquillo DO [STAFF PHYSICIAN] - 2 Weeks Cecilio Georges DO [Primary Care Provider] - 1-2 days Ambulatory/Diagnostic Orders: Complete Blood Count w/diff [LAB.AMB] Time Frame: 3 Days, Location: None Selected Patient Instructions/Handouts: Peripheral Artery Disease (DC), Hematoma (ED) Activity/Diet/Wound Care/Special Instructions: Follow-up with Dr. Carrasquillo regarding bilateral femoral occlusions, or Dr. Pablo Discharge Disposition: HOME SELF-CARE
--- NOTE | 2025-04-23 12:56 | P.PN ---
Subjective Progress Note Date: 04/23/25 Reason for Consult (text): Post TAVR History of present illness: This is a 64-year-old male patient of Dr. Pablo with past medical history of hypertension, hyperlipidemia, diabetes mellitus type 2 tobacco use, severe COPD stage IV, chronic hypoxic respiratory failure on home O2, severe aortic stenosis, family history of coronary artery disease. We have been asked to evaluate the patient as he is post TAVR. Patient states that he came into the hospital due to severe pain in his abdomen across the middle and lower part as well as into his groin and states that his private parts turned black. He does have chronic lower extremity edema which he states he has for over a year and is unable to wear shoes. He states his pain is currently manageable due to the pain medications. Patient underwent TAVR procedure on 04/15/2025. He states in general he has been feeling well since he had the procedure done. Patient quit smoking 1 day prior to TAVR procedure. Blood pressure 127/66, heart rate 67, pulse ox 96% on room air. Patient states he has a follow-up appointment following TAVR scheduled on Sunday. Patient also gives history that because of his extensive PAD, his TAVR surgery was almost called off on the day of. -EKG: Sinus rhythm with right bundle branch block. -Chest x-ray:. Minimal pleural effusions. -CTA with runoff of the bilateral lower extremities: No acute findings in the arteries of the pelvis or bilateral lower extremities. 16.1 cm left flank hematoma. No evidence of active contrast extravasation identified on this exam this is likely postprocedural in nature. Bilateral common femoral artery occlusion. Right SFA occlusion proximally. Hematoma in the left flank is measuring 16.1 x 4.1 x 8.4 cm. Hyperinflation with flattened diaphragm -Laboratory studies: WBC 12.4, hemoglobin 8.4. Hemoglobin is down from 13.7 on 04/09. Sodium 131, potassium 4.5, creatinine 0.54. Troponins 0.136 and 0.16. -Home cardiac medications: Aspirin 81 mg daily, simvastatin 80 mg at bedtime. -Limited echocardiogram performed on 04/15/2025 revealed normal ventricular size and systolic function. TAVR valve was noted. No pericardial effusion. 04/23/2025 Patient seen and examined on the cardiac stepdown unit. Patient states he is a little bit better today but he still is having pain in the abdominal region/groin. He is on IV Lasix 40 mg every day which we will increase to twice daily for lower extremity edema. Blood pressure 139/75, heart rate 98, pulse ox 90% on room air. Repeat blood work reveals WBC 11.2, hemoglobin 8.9, sodium 133, potassium 3.9, creatinine 0.57. Patient has been seen and cleared for discharge by vascular surgery. Physical examination: Gen: This is 64-year-old male appears to be in no acute distress. VS: reviewed HEENT: Head is atraumatic, normocephalic. Pupils equal, round. Sclerae is ani cteric. NECK: Supple. No JVD. LUNGS: Clear to auscultation. No wheezes or rhonchi. No intercostal retractions. HEART: Regular rate and rhythm. ABDOMEN: Soft No tenderness. EXTREMITIES: 3+ bilat LE edema. No calf tenderness. NEUROLOGICAL: Patient is awake, alert and oriented x3. Assessment: Abdominal pain Left flank hematoma from left inguinal region secondary to instrument manipulation during TAVR Bilat femoral artery occlusions Right SFA occlusion Severe s/p TAVR on 04/15/2025 Known RBBB HTN HLD Severe COPD stage 4 Chronic hypoxic respiratory failure on home O2 Plan: Continue patient's home cardiac medications Continue IV Lasix 40 mg twice daily until patient is discharged Monitor I&O weights, monitor lytes and renal function Patient is cleared for discharge may follow-up with Dr. Pablo in 1 week. Nurse practitioner note has been reviewed, I agree with documented findings and plan of care. Patient was seen and examined. Objective - Vital Signs Vital signs: Vital Signs Temp 97.8 F 04/23/25 09:42 Pulse 88 04/23/25 12:00 Resp 18 04/23/25 11:58 BP 139/75 04/23/25 11:58 Pulse Ox 90 L 04/23/25 11:58 FiO2 60 04/22/25 04:17 Intake & Output 04/22/25 04/23/25 04/23/25 18:59 06:59 18:59 Intake Total 222 10 Balance 222 10 Weight 94.6 kg Intake: IV 10 Invasive Line 1 10 Oral 222 Other: Voiding Method Urinal # Voids 2 1 - Labs CBC & Chem 7: 04/23/25 06:02 04/23/25 06:02 Labs: Abnormal Lab Results - Last 24 Hours (Table) 04/22/25 04/22/25 04/22/25 Range/Units 13:13 17:12 21:07 WBC 14.29 H (4.50-10.00) 10*3/uL RBC 3.02 L (4.40-5.60) 10*6/uL Hgb 8.6 L (13.0-17.0) g/dL Hct 26.1 L (39.6-50.0) % MPV 8.5 L (9.5-12.2) fL Sodium (137-145) mmol/L Chloride (98-107) mmol/L Carbon Dioxide (22-30) mmol/L Creatinine (0.66-1.25) mg/dL Glucose (74-99) mg/dL POC Glucose (mg/dL) 145 H 240 H (70-110) mg/dL 04/23/25 04/23/25 04/23/25 Range/Units 05:53 06:02 06:02 WBC 11.29 H (4.50-10.00) 10*3/uL RBC 3.13 L (4.40-5.60) 10*6/uL Hgb 8.9 L (13.0-17.0) g/dL Hct 27.6 L (39.6-50.0) % MPV 8.6 L (9.5-12.2) fL Sodium 133 L (137-145) mmol/L Chloride 93 L (98-107) mmol/L Carbon Dioxide 37 H (22-30) mmol/L Creatinine 0.57 L (0.66-1.25) mg/dL Glucose 140 H (74-99) mg/dL POC Glucose (mg/dL) 160 H (70-110) mg/dL 04/23/25 Range/Units 11:48 WBC (4.50-10.00) 10*3/uL RBC (4.40-5.60) 10*6/uL Hgb (13.0-17.0) g/dL Hct (39.6-50.0) % MPV (9.5-12.2) fL Sodium (137-145) mmol/L Chloride (98-107) mmol/L Carbon Dioxide (22-30) mmol/L Creatinine (0.66-1.25) mg/dL Glucose (74-99) mg/dL POC Glucose (mg/dL) 220 H (70-110) mg/dL
== END 2025-04-23 13:14 | disposition home or self-care (01) | DRG 920 ==
LOC: EC 21:46 → OBSVTOIN 04-22 03:57 → 3SCARD 04-22 03:57
PROVIDERS: ADMIT Student in an Organized Health Care Education/Training Program; ATTEND Student in an Organized Health Care Education/Training Program
PROC: B41D1ZZ Fluoroscopy of Aorta and Bilateral Lower Extremity Arteries using Low Osmolar Contrast (ICD-10-PCS; principal; 2025-04-22)
DX: L76.32 Postprocedural hematoma of skin and subcutaneous tissue following other procedure (principal); D62 Acute posthemorrhagic anemia; I74.5 Embolism and thrombosis of iliac artery; J96.11 Chronic respiratory failure with hypoxia; D72.829 Elevated white blood cell count, unspecified; E11.51 Type 2 diabetes mellitus with diabetic peripheral angiopathy without gangrene; E61.1 Iron deficiency; J44.9 Chronic obstructive pulmonary disease, unspecified; I10 Essential (primary) hypertension; Z95.2 Presence of prosthetic heart valve; Z79.4 Long term (current) use of insulin; F17.210 Nicotine dependence, cigarettes, uncomplicated; G89.29 Other chronic pain; M54.9 Dorsalgia, unspecified; R00.0 Tachycardia, unspecified; G47.33 Obstructive sleep apnea (adult) (pediatric); I45.10 Unspecified right bundle-branch block; E78.5 Hyperlipidemia, unspecified; Z79.51 Long term (current) use of inhaled steroids; Z79.82 Long term (current) use of aspirin; Z79.84 Long term (current) use of oral hypoglycemic drugs; Z79.899 Other long term (current) drug therapy; Z82.49 Family history of ischemic heart disease and other diseases of the circulatory system; Z99.81 Dependence on supplemental oxygen; Z88.5 Allergy status to narcotic agent; Z88.6 Allergy status to analgesic agent; Z88.8 Allergy status to other drugs, medicaments and biological substances
CPT/HCPCS: 36415; 71045; 71275; 75635; 80048; 80053; 81003; 82607; 82728; 82746; 83036; 83540; 83550; 83605; 83690; 83880; 84484; 85025; 85027; 85610; 85730; 86140; 93005; 94640; 94660; 94760; 96361; 96374; 96375; 96376; 99285

== ENCOUNTER 2025-04-27 15:01 | Inpatient (IN) | payer OTHER, MEDICARE ==
[2025-04-27] MEDS ORDERED: EPINEPHrine 10 ML SYRINGE (0.1 MG/ML) ONE (15:03)
[2025-04-27] MEDS ORDERED: IPRATROPIUM-ALBUTEROL 3 ML NEB INHALATION PRN (15:14)
--- NOTE | 2025-04-27 15:22 | ED ---
General Adult HPI - General Stated complaint: Unresponsive Time Seen by Provider: 04/27/25 15:13 Source: EMS, RN notes reviewed Mode of arrival: EMS Limitations: no limitations - History of Present Illness Initial comments: Patient is a 64-year-old male presenting to the emergency department with difficulty breathing. Patient had some decreased responsiveness and arrested upon arrival. CPR started immediately. Patient had 1 round of epinephrine and CPR and intubated by myself. Patient then had return of pulses. Patient nonverbal and provides no history. Patient recently in the hospital for TAVR procedure - Related Data Home Medications Medication Instructions Recorded Confirmed Simvastatin 80 mg PO HS 08/14/18 04/27/25 Omeprazole 40 mg PO DAILY 03/14/19 04/27/25 Albuterol Inhaler [Ventolin Hfa 2 puff INHALATION RT-Q6H PRN 09/01/24 04/27/25 Inhaler] Insulin Glargine,Hum.rec.anlog 29 units SQ HS 09/01/24 04/27/25 [Lantus Solostar Pen] SITagliptin [Sitagliptin] 100 mg PO DAILY 09/01/24 04/27/25 predniSONE 10 mg PO DAILY 09/01/24 04/27/25 Aspirin EC [Ecotrin Low Dose] 81 mg PO DAILY 04/22/25 04/27/25 Ipratropium-Albuterol Nebulize 3 ml INHALATION RT-Q6H 04/22/25 04/27/25 [Duoneb 0.5 mg-3 mg/3 ml Soln] Fluticasone Nasal Blanco [Flonase 1 spray EA NOSTRIL BID 04/27/25 04/27/25 Nasal Blanco] Ipratropium/Albuter 20-100Mcg 1 puff INHALATION RT-QID 04/27/25 04/27/25 [Combivent Respimat 20-100Mcg Inhaler] Lisinopril-Hctz 20-25 mg 1 tab PO DAILY 04/27/25 04/27/25 [Zestoretic 20-] Mometasone/Formoterol [Dulera 100 2 puff INHALATION RT-BID 04/27/25 04/27/25 Mcg-5 Mcg Inhaler] Potassium Chloride [Klor-Con M20] 20 meq PO DAILY 04/27/25 04/27/25 Previous Rx's Medication Instructions Recorded metFORMIN HCL [Glucophage] 1,000 mg PO BID #0 04/16/25 Furosemide [Lasix] 40 mg PO DAILY #7 tablet 04/23/25 Allergies Allergy/AdvReac Type Severity Reaction Status Date / Time empagliflozin Allergy Itching Verified 04/27/25 16:09 glipizide Allergy increased Verified 04/27/25 16:09 lactic acid bupropion [From Wellbutrin] AdvReac Nausea Verified 04/27/25 16:09 codeine AdvReac Nausea Verified 04/27/25 16:09 gabapentin AdvReac Nausea & Verified 04/27/25 16:09 Vomiting pregabalin AdvReac Nausea Verified 04/27/25 16:09 Review of Systems ROS Statement: Those systems with pertinent positive or pertinent negative responses have been documented in the HPI. ROS Other: All systems not noted in ROS Statement are negative. Limitations: ROS unobtainable due to patients medical condition Past Medical History Past Medical History: COPD, Diabetes Mellitus, GERD/Reflux, Hyperlipidemia, Hypertension, Sleep Apnea/CPAP/BIPAP Additional Past Medical History / Comment(s): aortic valve stenosis,bipap with O2 @ 3L,uses O2 @ 2 L nc prn during the day-Stg 4 COPD-unable to lay flat on back. Chronic back pain, hx of jaw fx 1978, History of Any Multi-Drug Resistant Organisms: None Reported Past Surgical History: Back Surgery, Heart Catheterization Additional Past Surgical History / Comment(s): lumbar surgery ; pain procedures, COLONOSCOPY, BRONCHOSCOPY Past Anesthesia/Blood Transfusion Reactions: No Reported Reaction Additional Past Anesthesia/Blood Transfusion Reaction / Comment(s): no hx blood transfusion Past Psychological History: No Psychological Hx Reported Smoking Status: Current every day smoker Past Alcohol Use History: None Reported Additional Past Alcohol Use History / Comment(s): SMOKES 1/2 PPD SINCE AGE 12 Past Drug Use History: None Reported - Past Family History Mother Family Medical History: No Reported History Father Family Medical History: COPD, Coronary Artery Disease (CAD) Additional Family Medical History / Comment(s): CABG. peripheral vascular disease General Exam Limitations: altered mental status, physical limitation General appearance: obtunded Head exam: Present: atraumatic Eye exam: Present: normal appearance ENT exam: Present: normal oropharynx Neck exam: Present: normal inspection Respiratory exam: Present: other (No spontaneous breath sounds. Frothy sputum noticed on intubation) Cardiovascular Exam: Present: other (Asystole, no pulse) GI/Abdominal exam: Present: soft. Absent: tenderness Extremities exam: Present: pedal edema Neurological exam: Present: altered Psychiatric exam: Present: other (Nonverbal) Skin exam: Present: other (Lower abdominal ecchymosis and scrotal ecchymosis) Course Vital Signs 04/27/25 04/27/25 04/27/25 15:15 15:23 15:24 Temperature Pulse Rate 105 H Respiratory 18 Rate Blood Pressure 184/116 O2 Sat by Pulse 98 Oximetry Fraction of 100 100 Inspired Oxygen (FIO2) 04/27/25 04/27/25 04/27/25 15:40 15:53 17:19 Temperature Pulse Rate 107 H 103 H Respiratory 28 H 21 Rate Blood Pressure O2 Sat by Pulse Oximetry Fraction of 100 Inspired Oxygen (FIO2) 04/27/25 17:36 Temperature 96.9 F L Pulse Rate Respiratory Rate Blood Pressure O2 Sat by Pulse Oximetry Fraction of Inspired Oxygen (FIO2) EKG Findings - EKG Results: EKG: interpreted by ERMD (Left axis. Right bundle branch block. Nonspecific ST-T.), sinus rhythm EKG shows: tachycardia Procedures - Intubation Laryngoscope: Shepherd Size: 3 ET Tube Size: 7.5 (Stuff okay) Tube Placement Confirmation: visualized tube passing through cords, equal breath sounds bilaterally, no breath sounds over epigastrium, confirmation by capnometry Patient Tolerated Procedure: well Intubation Complications: none Medical Decision Making - Medical Decision Making Was pt. sent in by a medical professional or institution (, PA, MAIL DISTRIBUTION CLERK, urgent care, hospital, or [facility]...) When possible be specific @ -No Did you speak to anyone other than the patient for history (EMS, parent, family, police, friend...)? What history was obtained from this source @ -EMS provides history as patient is unresponsive Did you review nursing and triage notes (agree or disagree)? Why? @ -I reviewed and agree with nursing and triage notes Were old charts reviewed (outside hosp., previous admission, EMS record, old EKG, old radiological studies, urgent care reports/EKG's, [facility] records)? Report findings @ -No old charts were reviewed Differential Diagnosis (chest pain, altered mental status, abdominal pain women, abdominal pain men, vaginal bleeding, weakness, fever, dyspnea, syncope, head ache, dizziness, GI bleed, back pain, seizure, CVA, palpatations, mental health, musculoskeletal)? @ -Differential Dyspnea: Coronary syndrome, arrhythmia, tamponade, asthma, COPD, pulmonary embolism, pneumonia, pneumothorax, pulmonary effusion, anaphylaxis, diabetic ketoacidosis, flailed chest, pulmonary contusion, diaphragmatic rupture, anemia, neuromuscular, this is not meant to be an all-inclusive list. EKG interpreted by me (3pts min.). @ -As above X-rays interpreted by me (1pt min.). @ -Chest x-ray without acute abnormality CT interpreted by me (1pt min.). @ -CT brain without acute abnormality. CT chest without acute abnormality. CT abdomen pelvis as discussed with radiologist shows oblique hematoma. Previous CT scan was reviewed, similar area. U/S interpreted by me (1pt. min.). @ -None done What testing was considered but not performed or refused? (CT, X-rays, U/S, labs)? Why? @ -None What meds were considered but not given or refused? Why? @ -None Did you discuss the management of the patient with other professionals (professionals i.e. , PA, MAIL DISTRIBUTION CLERK, lab, RT, psych nurse, social sciences department chair, legal process specialist, teacher, data officer, trimming caser)? Give summary @ -Case discussed with Dr. Escobedo who did come evaluate and will take patient to the ICU. Case also discussed with Dr. Pike who will admit covering Dr. Bauer me Was smoking cessation discussed for >3mins.? @ -No Was critical care preformed (if so, how long)? @ -43minutes critical care time Were there social determinants of health that impacted care today? How? (Homelessness, low income, unemployed, alcoholism, drug addiction, transportation, low edu. Level, literacy, decrease access to med. care, prison, rehab)? @ -No Was there de-escalation of care discussed even if they declined (Discuss DNR or withdrawal of care, Hospice)? DNR status @ -No What co-morbidities impacted this encounter? (DM, HTN, Smoking, COPD, CAD, Cancer, CVA, ARF, Chemo, Hep., AIDS, mental health diagnosis, sleep apnea, morbi d obesity)? @ -COPD history Was patient admitted / discharged? Hospital course, mention meds given and route, prescriptions, significant lab abnormalities, going to OR and other pertinent info. @ -Patient presents unresponsive. Immediate cardiac arrest. Patient return of circulation after 1 round of epi and CPR. Patient intubated. Patient will be admitted with pulmonary/critical care consult. Patient reevaluated. Admission orders written. Undiagnosed new problem with uncertain prognosis? @ -No Drug Therapy requiring intensive monitoring for toxicity (Heparin, Nitro, Insulin, Cardizem)? @ -No Were any procedures done? @ -No Diagnosis/symptom? @ -Respiratory failure. Cardiac arrest Acute, or Chronic, or Acute on Chronic? @ -Acute, acute Uncomplicated (without systemic symptoms) or Complicated (systemic symptoms)? @ -Default Side effects of treatment? @ -No Exacerbation, Progression, or Severe Exacerbation? @ -No Poses a threat to life or bodily function? How? (Chest pain, [place], [place], pneumonia, PE, COPD, DKA, ARF, appy, cholecystitis, CVA, Diverticulitis, Homicidal, Suici sav, threat to staff... and all critical care pts) @ -Threat to pulmonary and cardiac functions - Lab Data Result diagrams: 04/27/25 15:18 04/27/25 15:18 Lab Results 04/27/25 04/27/25 04/27/25 Range/Units 15:18 15:18 15:18 WBC 18.42 H (4.50-10.00) 10*3/uL RBC 3.95 L (4.40-5.60) 10*6/uL Hgb 11.5 L (13.0-17.0) g/dL Hct 36.9 L (39.6-50.0) % MCV 93.4 D (80.0-97.0) fL MCH 29.1 (27.0-32.0) pg MCHC 31.2 L (32.0-37.0) g/dL Plt Count 516 H (140-440) 10*3/uL MPV 8.8 L (9.5-12.2) fL Immature Gran % (Auto) 1.5 % Neutrophils % 85.6 % Lymphocytes % 3.5 % Monocytes % 9.2 % Eosinophils % 0.0 % Basophils % 0.2 % Immature Gran # 0.27 H (0.00-0.04) 10*3/uL Neutrophils # 15.77 H (1.80-7.70) 10*3/uL Lymphocytes # 0.64 L (0.90-5.00) 10*3/uL Monocytes # 1.70 H (0.20-1.00) 10*3/uL Eosinophils # 0.00 L (0.04-0.35) 10*3/uL Basophils # 0.04 (0.00-0.10) 10*3/uL PT 12.5 (10.0-12.5) sec INR 1.2 H (<1.2) APTT 22.3 (22.0-30.0) sec Sample Site ABG pH (7.35-7.45) ABG pCO2 (35-45) mmHg ABG pO2 (83-108) mmHg ABG O2 Saturation (94-97) % Donald Test Hemoglobin (13.0-17.5) gm/dL FiO2 % Sodium (137-145) mmol/L Potassium (3.5-5.1) mmol/L Chloride (98-107) mmol/L Carbon Dioxide (22-30) mmol/L Anion Gap mmol/L BUN (9-20) mg/dL Creatinine (0.66-1.25) mg/dL Est GFR (CKD-EPI)AfAm (>60 ml/min/1.73 sqM) Est GFR (CKD-EPI)NonAf (>60 ml/min/1.73 sqM) Glucose (74-99) mg/dL POC Glucose (mg/dL) (70-110) mg/dL POC Glu Bow Tacker ID Calcium (8.4-10.2) mg/dL Magnesium (1.6-2.3) mg/dL Total Bilirubin (0.2-1.3) mg/dL AST (17-59) U/L ALT (4-49) U/L Alkaline Phosphatase (38-126) U/L Troponin I (0.000-0.034) ng/mL NT-Pro-B Natriuret Pep pg/mL Total Protein (6.3-8.2) g/dL Albumin (3.5-5.0) g/dL Urine Color Yellow Urine Appearance Cloudy (Clear) Urine pH 5.5 (5.0-8.0) Ur Specific Rosanky 1.017 (1.001-1.035) Urine Protein 2+ H (Negative) Urine Glucose (UA) Negative (Negative) Urine Ketones Negative (Negative) Urine Blood Negative (Negative) Urine Nitrite Negative (Negative) Urine Bilirubin Negative (Negative) Urine Urobilinogen 2.0 (<2.0) mg/dL Ur Leukocyte Esterase Negative (Negative) Urine RBC 8 H (0-5) /hpf Urine WBC 4 (0-5) /hpf Ur Squamous Epith Cells <1 (0-4) /hpf Urine Bacteria Many H (None) /hpf Hyaline Casts 19 H (0-2) /lpf Urine Mucus Rare H (None) /hpf 04/27/25 04/27/25 04/27/25 Range/Units 15:18 15:18 15:22 WBC (4.50-10.00) 10*3/uL RBC (4.40-5.60) 10*6/uL Hgb (13.0-17.0) g/dL Hct (39.6-50.0) % MCV (80.0-97.0) fL MCH (27.0-32.0) pg MCHC (32.0-37.0) g/dL Plt Count (140-440) 10*3/uL MPV (9.5-12.2) fL Immature Gran % (Auto) % Neutrophils % % Lymphocytes % % Monocytes % % Eosinophils % % Basophils % % Immature Gran # (0.00-0.04) 10*3/uL Neutrophils # (1.80-7.70) 10*3/uL Lymphocytes # (0.90-5.00) 10*3/uL Monocytes # (0.20-1.00) 10*3/uL Eosinophils # (0.04-0.35) 10*3/uL Basophils # (0.00-0.10) 10*3/uL PT (10.0-12.5) sec INR (<1.2) APTT (22.0-30.0) sec Sample Site ABG pH (7.35-7.45) ABG pCO2 (35-45) mmHg ABG pO2 (83-108) mmHg ABG O2 Saturation (94-97) % Donald Test Hemoglobin (13.0-17.5) gm/dL FiO2 % Sodium 137 (137-145) mmol/L Potassium 5.6 H (3.5-5.1) mmol/L Chloride 93 L (98-107) mmol/L Carbon Dioxide 33 H (22-30) mmol/L Anion Gap 11 mmol/L BUN 21 H (9-20) mg/dL Creatinine 0.83 (0.66-1.25) mg/dL Est GFR (CKD-EPI)AfAm >90 (>60 ml/min/1.73 sqM) Est GFR (CKD-EPI)NonAf >90 (>60 ml/min/1.73 sqM) Glucose 117 H (74-99) mg/dL POC Glucose (mg/dL) 129 H (70-110) mg/dL POC Glu Bow Tacker ID Abilio Conde Calcium 9.1 (8.4-10.2) mg/dL Magnesium 2.2 (1.6-2.3) mg/dL Total Bilirubin 2.8 H (0.2-1.3) mg/dL AST 374 H (17-59) U/L ALT 321 H (4-49) U/L Alkaline Phosphatase 83 (38-126) U/L Troponin I 0.107 H* (0.000-0.034) ng/mL NT-Pro-B Natriuret Pep 1030 pg/mL Total Protein 7.3 (6.3-8.2) g/dL Albumin 4.7 (3.5-5.0) g/dL Urine Color Urine Appearance (Clear) Urine pH (5.0-8.0) Ur Specific Rosanky (1.001-1.035) Urine Protein (Negative) Urine Glucose (UA) (Negative) Urine Ketones (Negative) Urine Blood (Negative) Urine Nitrite (Negative) Urine Bilirubin (Negative) Urine Urobilinogen (<2.0) mg/dL Ur Leukocyte Esterase (Negative) Urine RBC (0-5) /hpf Urine WBC (0-5) /hpf Ur Squamous Epith Cells (0-4) /hpf Urine Bacteria (None) /hpf Hyaline Casts (0-2) /lpf Urine Mucus (None) /hpf //25 Range/Units 15:58 WBC (4.50-10.00) 10*3/uL RBC (4.40-5.60) 10*6/uL Hgb (13.0-17.0) g/dL Hct (39.6-50.0) % MCV (80.0-97.0) fL MCH (27.0-32.0) pg MCHC (32.0-37.0) g/dL Plt Count (140-440) 10*3/uL MPV (9.5-12.2) fL Immature Gran % (Auto) % Neutrophils % % Lymphocytes % % Monocytes % % Eosinophils % % Basophils % % Immature Gran # (0.00-0.04) 10*3/uL Neutrophils # (1.80-7.70) 10*3/uL Lymphocytes # (0.90-5.00) 10*3/uL Monocytes # (0.20-1.00) 10*3/uL Eosinophils # (0.04-0.35) 10*3/uL Basophils # (0.00-0.10) 10*3/uL PT (10.0-12.5) sec INR (<1.2) APTT (22.0-30.0) sec Sample Site r rad ABG pH 7.00 L* (7.35-7.45) ABG pCO2 >98 H* (35-45) mmHg ABG pO2 232 H (83-108) mmHg ABG O2 Saturation 99.5 H (94-97) % Donald Test Yes Hemoglobin 10.9 L (13.0-17.5) gm/dL FiO2 100 % Sodium (137-145) mmol/L Potassium (3.5-5.1) mmol/L Chloride (98-107) mmol/L Carbon Dioxide (22-30) mmol/L Anion Gap mmol/L BUN (9-20) mg/dL Creatinine (0.66-1.25) mg/dL Est GFR (CKD-EPI)AfAm (>60 ml/min/1.73 sqM) Est GFR (CKD-EPI)NonAf (>60 ml/min/1.73 sqM) Glucose (74-99) mg/dL POC Glucose (mg/dL) (70-110) mg/dL POC Glu Bow Tacker ID Calcium (8.4-10.2) mg/dL Magnesium (1.6-2.3) mg/dL Total Bilirubin (0.2-1.3) mg/dL AST (17-59) U/L ALT (4-49) U/L Alkaline Phosphatase (38-126) U/L Troponin I (0.000-0.034) ng/mL NT-Pro-B Natriuret Pep pg/mL Total Protein (6.3-8.2) g/dL Albumin (3.5-5.0) g/dL Urine Color Urine Appearance (Clear) Urine pH (5.0-8.0) Ur Specific Rosanky (1.001-1.035) Urine Protein (Negative) Urine Glucose (UA) (Negative) Urine Ketones (Negative) Urine Blood (Negative) Urine Nitrite (Negative) Urine Bilirubin (Negative) Urine Urobilinogen (<2.0) mg/dL Ur Leukocyte Esterase (Negative) Urine RBC (0-5) /hpf Urine WBC (0-5) /hpf Ur Squamous Epith Cells (0-4) /hpf Urine Bacteria (None) /hpf Hyaline Casts (0-2) /lpf Urine Mucus (None) /hpf Critical Care Time Critical Care Time: Yes Disposition Clinical Impression: Respiratory failure, Cardiac arrest Disposition: ADMITTED IP TO THIS [facility] Condition: Critical Is patient prescribed a controlled substance at d/c from ED?: No Referrals: Cecilio Georges DO [Primary Care Provider] - 1-2 days Time of Disposition: 17:45
[2025-04-27 15:24] LABS: Glucose,Whole Blood 129 mg/dL (70-110)
[2025-04-27] MEDS: LORazepam 1 MG/0.5 ML VIAL IV PRN (15:39)
[2025-04-27] MEDS: IPRATROPIUM-ALBUTEROL 3 ML NEB INHALATION SCH (15:39)
--- NOTE | 2025-04-27 15:46 | XR ---
EXAMINATION TYPE: XR chest 1V portable DATE OF EXAM: 04/27/2025 3:31 PM COMPARISON: 04/22/2025 CLINICAL INDICATION: Male, 64 years old with history of tesha, TECHNIQUE: XR chest 1V portable view(s) obtained. FINDINGS: The heart size is normal. The pulmonary vasculature is normal. Minimal left pleural effusion is present. Endotracheal tube tip is 9 cm above the yakelin. Nasogastric tube transverses the thorax the tip in th e left upper quadrant abdomen. IMPRESSION: 1. Lines and catheters discussed above. 2. Small left pleural effusion [facility], , 04/27/2025 3:43 PM
[2025-04-27 15:51] LABS: Basophils # (A) 0.04 10*3/uL (0.00-0.10); Basophils % (A) 0.2 %; Eosinophils # (A) 0.00 10*3/uL (0.04-0.35); Eosinophils % (A) 0.0 %; HCT 36.9 % (39.6-50.0); HGB 11.5 g/dL (13.0-17.0); Lymphocytes # (A) 0.64 10*3/uL (0.90-5.00); Lymphocytes % (A) 3.5 %; MCH 29.1 pg (27.0-32.0); MCHC 31.2 g/dL (32.0-37.0); Monocytes # (A) 1.70 10*3/uL (0.20-1.00); Monocytes % (A) 9.2 %; Neutrophils # (A) 15.77 10*3/uL (1.80-7.70); Neutrophils % (A) 85.6 %; Platelet Count 516 10*3/uL (140-440); RBC 3.95 10*6/uL (4.40-5.60); RDW 15.3 % (11.5-14.5); WBC 18.42 10*3/uL (4.50-10.00)
[2025-04-27 15:58] LABS: INR 1.2 (<1.2); Partial Thromboplastin Time 22.3 sec (22.0-30.0); Prothrombin Time 12.5 sec (10.0-12.5)
[2025-04-27 16:02] LABS: ABG PO2 232 mmHg (83-108); Allen Test Performed? Yes
[2025-04-27 16:04] LABS: ABG PCO2 >98 mmHg (35-45); ABG PH 7.00 (7.35-7.45)
[2025-04-27 16:05] LABS: MCV 93.4 fL (80.0-97.0)
[2025-04-27 16:06] LABS: ALT 321 U/L (4-49); AST 374 U/L (17-59); African American GFR (CKD) >90 (>60 ml/min/1.73 sqM); Albumin 4.7 g/dL (3.5-5.0); Alkaline Phosphatase 83 U/L (38-126); Anion Gap 11 mmol/L; Bacteria,Urine Many /hpf; Bilirubin,Urine Negative (Negative); Blood Urea Nitrogen 21 mg/dL (9-20); Blood,Urine Negative (Negative); Calcium 9.1 mg/dL (8.4-10.2); Carbon Dioxide 33 mmol/L (22-30); Chloride 93 mmol/L (98-107); Color,Urine Yellow; Glucose 117 mg/dL (74-99); Glucose,Urine (UA) Negative (Negative); Hyaline Casts,Urine 19 /lpf (0-2); Ketones,Urine Negative (Negative); Leukocyte Esterase,Urine Negative (Negative); Magnesium 2.2 mg/dL (1.6-2.3); Mucus,Urine Rare /hpf; Nitrite,Urine Negative (Negative); Non-African American GFR(CKD) >90 (>60 ml/min/1.73 sqM); PH, Urine 5.5 (5.0-8.0); Potassium 5.6 mmol/L (3.5-5.1); Protein,Urine 2+ (Negative); RBC,Urine 8 /hpf (0-5); Sodium 137 mmol/L (137-145); Specific Gravity,Urine 1.017 (1.001-1.035); Squamous Epithelial Cell,Urine <1 /hpf (0-4); Total Protein 7.3 g/dL (6.3-8.2); Urobilinogen,Urine 2.0 mg/dL (<2.0); WBC,Urine 4 /hpf (0-5)
[2025-04-27 16:15] LABS: NT-Pro-B-Type Natriuretic Pept 1030 pg/mL
[2025-04-27] MEDS: methylPREDNISolone SOD SUCCI 125 MG/2 ML VIAL IV STA (16:16)
--- NOTE | 2025-04-27 17:17 | CT ---
EXAMINATION TYPE: CT brain wo con DATE OF EXAM: 04/27/2025 4:59 PM COMPARISON: 03/06/2023 CLINICAL INDICATION: Male, 64 years old with history of ams, unresponsive TECHNIQUE: CT of the brain is performed utilizing 3 mm thick sections through the posterior fossa and 3 mm thick sections through the remaining calvarium. Study is performed within 24 hours of arrival to the hospital. Contrast used: mL of , (none if empty) CT DLP: 1204.1 mGycm, Automated exposure control for dose reduction was used. FINDINGS: No abnormal hyperdensity is present to suggest an acute intracranial hemorrhage. No mass lesion is evident. No acute infarcts are evident. Ventricles and sulci are appropriate for the patient age. Because of thickening is seen in the left maxillary sinus. Mild mucosal thickening and small air-flui d level may be within the right maxillary sinus. Remaining paranasal sinuses and mastoid air cells ar e clear. Patient is intubated. IMPRESSION: 1. No acute intracranial process. Follow up MRI can be performed as clinically indicated. 2. Clinical correlation for acute bilateral maxillary sinusitis recommended. 3. Patient is intubated. [facility], , 04/27/2025 5:14 PM
[2025-04-27] MEDS ORDERED: ONDANSETRON 4 MG/2 ML VIAL IVP PRN (17:31)
[2025-04-27] MEDS ORDERED: NALOXONE 0.4 MG/ML 1 ML VIAL IV PRN (17:31)
--- NOTE | 2025-04-27 17:34 | CT ---
EXAMINATION TYPE: CT chest angio for PE DATE OF EXAM: 04/27/2025 5:09 PM COMPARISON: None. CLINICAL INDICATION: Male, 64 years old with history of cardiac arrest, cardiac arrest, unresponsive, TECHNIQUE: CT of the chest is performed on a spiral scan at 2 mm thick sections. Study is performed with intravenous contrast timed for evaluation for pulmonary embolism. This will limit additional po rtions of the evaluation. 10mm MIP images reconstructed by the technologist are reviewed on the comp uter in the coronal and sagittal planes. Contrast used:74cc mL of Isovue 370 with IV Contrast, (none if empty) Oral contrast used: (none if empty) CT DLP: 499.1 mGycm, Automated exposure control for dose reduction was used. FINDINGS: Patient is intubated with the tip above the yakelin. Nasogastric tube transverses the thorax. No persistent filling defects are evident to suggest an acute pulmonary embolism. No mediastinal or hilar adenopathy enlarged by CT criteria is evident. The ascending aorta diameter at the level of the main pulmonary artery is 2.7 cm. The main pulmonary artery diameter at the bifurcation is 2.8 cm. Lung windows are clear. No significant coronary artery calcifications. Limited CT sections were through the upper abdomen. Upper abdomen appears unremarkable. IMPRESSION: 1. No acute pulmonary embolism. [facility], , 04/27/2025 5:32 PM
--- NOTE | 2025-04-27 17:57 | CT ---
EXAMINATION TYPE: CT abdomen pelvis w con DATE OF EXAM: 04/27/2025 5:00 PM COMPARISON: None. CLINICAL INDICATION: Male, 64 years old with history of Abdominal ecchymosis, Abdominal ecchymosis, u nresponsive TECHNIQUE: Axial images were obtained from above the diaphragm to the pubic rami in the axial plane a t 5 mm thick sections. Reconstructed images are reviewed on the computer in the coronal plane. CONTRAST: 100 mL of Isovue 300. Study performed without Oral Contrast DLP: 1189.6 mGycm, Automated exposure control for dose reduction was used. FINDINGS: Limited CT sections are obtained the lung bases. The lung bases are clear. CT ABDOMEN: Nasogastric tube tip is within the stomach. Liver: Normal Spleen: Normal Pancreas: Normal Adrenal glands: The adrenal glands are normal. Gallbladder: Normal Kidneys: No masses are evident. No hydronephrosis is present. There is a 2.6 cm cyst in the posteri or lateral right mid upper kidney Delayed images were obtained through the kidneys, which remain unr emarkable. Aorta: Vascular calcification is within the aorta. Inferior vena cava: Normal. CT PELVIS: There is a low density region along the lateral left hemipelvis. Some mild stranding is ad jacent. This measures 27 Hounsfield units and 7.7 x 4.1 transverse by 13.4 centimeters craniocaudal. This may be an intramuscular seroma along the left Oblique muscles. Subcutaneous Tissues appear norm al. No free fluid is within the pelvis. Finding appears similar to the 04/22/2025 CTA. Report was call ed and case discussed with the emergency room physician by Dr. Gan by telephone at the time of in terpretation. Loops of bowel within the abdomen and pelvis are normal. There are loops of bowel which are incom pletely distended or lack oral contrast limiting their evaluation. Appendix: Normal as visualized. Urinary bladder: Gee catheter present Genitourinary structures: The prostate appears slightly prominent Osseous structures: No suspicious lytic or sclerotic lesions. IMPRESSION: 1. Left flank hematoma, present on a comparison 04/22/2025 study. 2. No suspicious acute changes identified. [facility], , 04/27/2025 5:55 PM
--- NOTE | 2025-04-27 18:05 | P.HPIM ---
History of Present Illness H&P Date: 04/27/25 64 year old M with PMH of COPD on 2L home O2, DM, HTN, GERD, HLD presents to the ED for SOB. History is obtained from his at bedside. Patient recently underwent TAVR on 04/15. Surgery was complicated with left flank hematoma. He had been doing well since his surgery. Over the past day, he reported increased shortness of breath not relieved with nebulized treatments. This prompted him to come to the ED. In the ED, he was noted to have agonal breathing and subsequently lost his pulse. MARLEE LOPEZ was called. He underwent high quality chest compressions, received 1 round of Epinephrine and intubated by Dr. Glass. ROSC was achieved. Vitals on arrival: BP 184/116, HR 105, RR 18, 98% on RA. Labs: WBC 18.42, RBC 3.95, Hg 11.5, Hct 36.9, Plt 516. INR 1.2. ABG pH 7, pCO2 > 98. K 5.6, Cl 93, bicarb 33, BUN 21, glu 117, T. Bili 2.8, AST 374, ALT 321. Trop 0.107. BNP 1030. UA neg LE or nitrite. EKG showed sinus tachycardia with RBBB CT brain no acute process CXR small L pleural effusion CTA chest no PE CT AP pending General: non toxic, no distress, Intubated Derm: warm, dry Head: atraumatic, normocephalic, symmetric Eyes: EOMI, no lid lag, anicteric sclera Mouth: no lip lesion, mucus membranes moist Cardiovascular: S1S2 tachy, no murmur Lungs: Decreased BS bilateral, no rhonchi, no rales , no accessory muscle use Ext: no gross muscle atrophy, 3+ LE pitting edema, no contractures Neuro: Intubated Psych: Intubated Based on my assessment of this patient, this patient meets a high complexity level of care. Cardiac arrest likely secondary to COPD exacerbation: Duoneb QID scheduled and PRN SOB/wheezing. Pulmicort 1mg INH BID. Performist 20 mcg INH BID. Solumedrol 40 mg IV TID. Obtain STAT Echo to rule out cardiac cause given recent TAVR. Pulmonary on board. Cardiology and CT surgery consulted. Left flank hematoma: CT AP ordered to evaluate left flank hematoma. Troponin elevation: Likely due to demand ischemia. ASA 81 mg PO QD. Simvastatin 80 mg PO QHS. Obtain Echo as above. Cardiology consulted. Sepsis versus SIRS likely due to above: Likely reactive. No signs of active in fection. Obtain BCx + Sputum Cx + Legionella Ag. Normocytic anemia with Thrombocytosis: Likely due to left flank hematoma. Monitor and trend. Hyperkalemia: Repeat K at 10PM. Hyperbilirubinemia with Transaminitis: Awaiting results of CT AP. CODE STATUS: FULL CODE DVT Prophylaxis: SCD GI Prophylaxis: Protonix IV Designated medical POA if patient is not able to make medical decisions for themselves: I have reviewed the following documentum consultant notes: ED note. I have reviewed the results of the following tests: As above. I have ordered the following tests: As above. I have discussed the care of this patient with the following independent historian: OLIMPIA. I have independently interpreted the following test below: EKG. I have discussed the management of this patient with the following physician: Dr. Glass. Past Medical History Past Medical History: COPD, Diabetes Mellitus, GERD/Reflux, Hyperlipidemia, Hypertension, Sleep Apnea/CPAP/BIPAP Additional Past Medical History / Comment(s): aortic valve stenosis,bipap with O2 @ 3L,uses O2 @ 2 L nc prn during the day-Stg 4 COPD-unable to lay flat on back. Chronic back pain, hx of jaw fx 1978, History of Any Multi-Drug Resistant Organisms: None Reported Past Surgical History: Back Surgery, Heart Catheterization Additional Past Surgical History / Comment(s): lumbar surgery ; pain procedures, COLONOSCOPY, BRONCHOSCOPY Past Anesthesia/Blood Transfusion Reactions: No Reported Reaction Additional Past Anesthesia/Blood Transfusion Reaction / Comment(s): no hx blood transfusion Past Psychological History: No Psychological Hx Reported Smoking Status: Current every day smoker Past Alcohol Use History: None Reported Additional Past Alcohol Use History / Comment(s): SMOKES 1/2 PPD SINCE AGE 12 Past Drug Use History: None Reported - Past Family History Mother Family Medical History: No Reported History Father Family Medical History: COPD, Coronary Artery Disease (CAD) Additional Family Medical History / Comment(s): CABG. peripheral vascular disease Medications and Allergies Home Medications Medication Instructions Recorded Confirmed Type Simvastatin 80 mg PO HS 08/14/18 04/27/25 History Omeprazole 40 mg PO DAILY 03/14/19 04/27/25 History Albuterol Inhaler [Ventolin Hfa 2 puff INHALATION RT-Q6H PRN 09/01/24 04/27/25 History Inhaler] Insulin Glargine,Hum.rec.anlog 29 units SQ HS 09/01/24 04/27/25 History [Lantus Solostar Pen] SITagliptin [Sitagliptin] 100 mg PO DAILY 09/01/24 04/27/25 History predniSONE 10 mg PO DAILY 09/01/24 04/27/25 History metFORMIN HCL [Glucophage] 1,000 mg PO BID #0 04/16/25 04/27/25 Rx Aspirin EC [Ecotrin Low Dose] 81 mg PO DAILY 04/22/25 04/27/25 History Ipratropium-Albuterol Nebulize 3 ml INHALATION RT-Q6H 04/22/25 04/27/25 History [Duoneb 0.5 mg-3 mg/3 ml Soln] Furosemide [Lasix] 40 mg PO DAILY #7 tablet 04/23/25 04/27/25 Rx Fluticasone Nasal Ida [Flonase 1 spray EA NOSTRIL BID 04/27/25 04/27/25 History Nasal Ida] Ipratropium/Albuter 20-100Mcg 1 puff INHALATION RT-QID 04/27/25 04/27/25 History [Combivent Respimat 20-100Mcg Inhaler] Lisinopril-Hctz 20-25 mg 1 tab PO DAILY 04/27/25 04/27/25 History [Zestoretic 20-25] Mometasone/Formoterol [Dulera 100 2 puff INHALATION RT-BID 04/27/25 04/27/25 History Mcg-5 Mcg Inhaler] Potassium Chloride [Klor-Con M20] 20 meq PO DAILY 04/27/25 04/27/25 History Allergies Allergy/AdvReac Type Severity Reaction Status Date / Time empagliflozin Allergy Itching Verified 04/27/25 16:09 glipizide Allergy increased Verified 04/27/25 16:09 lactic acid bupropion [From Wellbutrin] AdvReac Nausea Verified 04/27/25 16:09 codeine AdvReac Nausea Verified 04/27/25 16:09 gabapentin AdvReac Nausea & Verified 04/27/25 16:09 Vomiting pregabalin AdvReac Nausea Verified 04/27/25 16:09 Physical Exam Vitals: Vital Signs Temp Pulse Resp BP Pulse Ox FiO2 04/27/25 17:36 96.9 F L 04/27/25 17:19 100 04/27/25 15:53 103 H 21 04/27/25 15:40 107 H 28 H 04/27/25 15:24 105 H 18 184/116 98 04/27/25 15:23 100 04/27/25 15:15 100 Intake and Output 04/27/25 04/27/25 04/27/25 06:59 14:59 22:59 Intake Total 7.005 Balance 7.005 Intake: Intake, IV Titration 7.005 Amount propofoL 1,000 mg In 7.005 Empty Bag 1 bag @ 15 MCG/ KG/MIN 8.124 mls/hr IV . [id number] [facility] Rx#:[id number] Other: Weight 90.265 kg Results CBC & Chem 7: 04/27/25 15:18 04/27/25 15:18 Labs: Abnormal Lab Results - Last 24 Hours (Table) 04/27/25 04/27/25 04/27/25 Range/Units 15:18 15:18 15:18 WBC 18.42 H (4.50-10.00) 10*3/uL RBC 3.95 L (4.40-5.60) 10*6/uL Hgb 11.5 L (13.0-17.0) g/dL Hct 36.9 L (39.6-50.0) % MCHC 31.2 L (32.0-37.0) g/dL Plt Count 516 H (140-440) 10*3/uL MPV 8.8 L (9.5-12.2) fL Immature Gran # 0.27 H (0.00-0.04) 10*3/uL Neutrophils # 15.77 H (1.80-7.70) 10*3/uL Lymphocytes # 0.64 L (0.90-5.00) 10*3/uL Monocytes # 1.70 H (0.20-1.00) 10*3/uL Eosinophils # 0.00 L (0.04-0.35) 10*3/uL INR 1.2 H (<1.2) ABG pH (7.35-7.45) ABG pCO2 (35-45) mmHg ABG pO2 (83-108) mmHg ABG O2 Saturation (94-97) % Hemoglobin (13.0-17.5) gm/dL Potassium (3.5-5.1) mmol/L Chloride (98-107) mmol/L Carbon Dioxide (22-30) mmol/L BUN (9-20) mg/dL Glucose (74-99) mg/dL POC Glucose (mg/dL) (70-110) mg/dL Total Bilirubin (0.2-1.3) mg/dL AST (17-59) U/L ALT (4-49) U/L Troponin I (0.000-0.034) ng/mL Urine Protein 2+ H (Negative) Urine RBC 8 H (0-5) /hpf Urine Bacteria Many H (None) /hpf Hyaline Casts 19 H (0-2) /lpf Urine Mucus Rare H (None) /hpf 04/27/25 04/27/25 04/27/25 Range/Units 15:18 15:18 15:22 WBC (4.50-10.00) 10*3/uL RBC (4.40-5.60) 10*6/uL Hgb (13.0-17.0) g/dL Hct (39.6-50.0) % MCHC (32.0-37.0) g/dL Plt Count (140-440) 10*3/uL MPV (9.5-12.2) fL Immature Gran # (0.00-0.04) 10*3/uL Neutrophils # (1.80-7.70) 10*3/uL Lymphocytes # (0.90-5.00) 10*3/uL Monocytes # (0.20-1.00) 10*3/uL Eosinophils # (0.04-0.35) 10*3/uL INR (<1.2) ABG pH (7.35-7.45) ABG pCO2 (35-45) mmHg ABG pO2 (83-108) mmHg ABG O2 Saturation (94-97) % Hemoglobin (13.0-17.5) gm/dL Potassium 5.6 H (3.5-5.1) mmol/L Chloride 93 L (98-107) mmol/L Carbon Dioxide 33 H (22-30) mmol/L BUN 21 H (9-20) mg/dL Glucose 117 H (74-99) mg/dL POC Glucose (mg/dL) 129 H (70-110) mg/dL Total Bilirubin 2.8 H (0.2-1.3) mg/dL AST 374 H (17-59) U/L ALT 321 H (4-49) U/L Troponin I 0.107 H* (0.000-0.034) ng/mL Urine Protein (Negative) Urine RBC (0-5) /hpf Urine Bacteria (None) /hpf Hyaline Casts (0-2) /lpf Urine Mucus (None) /hpf 04/27/ Range/Units 15:58 WBC (4.50-10.00) 10*3/uL RBC (4.40-5.60) 10*6/uL Hgb (13.0-17.0) g/dL Hct (39.6-50.0) % MCHC (32.0-37.0) g/dL Plt Count (140-440) 10*3/uL MPV (9.5-12.2) fL Immature Gran # (0.00-0.04) 10*3/uL Neutrophils # (1.80-7.70) 10*3/uL Lymphocytes # (0.90-5.00) 10*3/uL Monocytes # (0.20-1.00) 10*3/uL Eosinophils # (0.04-0.35) 10*3/uL INR (<1.2) ABG pH 7.00 L* (7.35-7.45) ABG pCO2 >98 H* (35-45) mmHg ABG pO2 232 H (83-108) mmHg ABG O2 Saturation 99.5 H (94-97) % Hemoglobin 10.9 L (13.0-17.5) gm/dL Potassium (3.5-5.1) mmol/L Chloride (98-107) mmol/L Carbon Dioxide (22-30) mmol/L BUN (9-20) mg/dL Glucose (74-99) mg/dL POC Glucose (mg/dL) (70-110) mg/dL Total Bilirubin (0.2-1.3) mg/dL AST (17-59) U/L ALT (4-49) U/L Troponin I (0.000-0.034) ng/mL Urine Protein (Negative) Urine RBC (0-5) /hpf Urine Bacteria (None) /hpf Hyaline Casts (0-2) /lpf Urine Mucus (None) /hpf
[2025-04-27] MEDS: CISATRACURIUM 2 MG/ML 5 ML VIAL IV ONE (18:12)
[2025-04-27] MEDS: NOREPINEPHRINE 8 MG in SODIUM CHLORIDE 0.9% 250 ML IV SCH (19:22)
[2025-04-27] MEDS: SODIUM CHLORIDE 0.9% 1,000 ML IV SCH (19:24)
[2025-04-27] MEDS: FORMOTEROL FUMARATE 20 MCG/2 ML NEBU INHALATION SCH (19:30)
[2025-04-27] MEDS: BUDESONIDE 1 MG/2 ML NEBU INHALATION SCH (19:31)
[2025-04-27] MEDS: CISATRACURIUM 200 MG in SODIUM CHLORIDE 0.9% 180 ML IV SCH (19:35)
[2025-04-27 20:19] LABS: Glucose,Whole Blood 153 mg/dL (70-110)
--- NOTE | 2025-04-27 20:42 | P.CNPUL ---
History of Present Illness Consult date: 04/27/25 Chief complaint: Cardiopulmonary arrest History of present illness: A 64-year-old male patient presented to the emergency department with acute r espiratory failure. The patient was unresponsive and in respiratory arrest. CPR was immediately initiated. The patient was given a round of epinephrine and CPR and the patient was intubated in the emergency department. He had return of spontaneous circulation. I reviewed the initial EKG post resuscitation and the patient was in normal sinus rhythm with a right bundle branch block pattern. Th e initial rhythm at the time of his cardiac arrest is not known. Nevertheless, I suspect that the patient had an acute hypoxic/hypercapnic respiratory failure as the patient postintubation was actively bronchospastic and wheezy. I saw the patient immediately post intubation and the patient had very limited air entry bilaterally, active bronchospastic and wheezy and while being on the mechanical ventilator, the patient's peak airway pressure was 50 and the blood gas showed a pH of 7.0 with a PCO2 more than 98 and a pO2 of 232 and this was done at that appointment for 50, rate of 20, FiO2 100% with a PEEP of 5. The chest x-ray was reviewed and it showed a small left-sided pleural effusion. The patient underwent a CT of the chest and a CAT scan of the abdomen. CT of the chest showed no evidence of any pulmonary embolism and the patient had no filling defects. No mediastinal lymphadenopathy or any other acute cardiopulmonary abnormalities. Lungs were essentially clear. CAT scan of the abdomen and pelvis showed left flank hematoma present since 04/22/2025 and this occurred following a TAVR procedure. The patient had a low-density lesion along the left lateral hemipelvis with some mild stranding measuring 7.7 x 4.5 x 13.4 cm in size, likely presenting an intramuscular seroma without any free fluid in the pelvis. Findings were essentially similar compared to the earlier CAT scan on 04/22/2025. No other abnormalities noted. CAT scan of the brain showed no acute intracranial abnormalities. Blood work showed a white cell count of 18.4 with a hemoglobin 9.5 and a platelet count of 516. Normal coagulation profile. K levels of 5.6, bicarb is at 33 with a BUN of 21 and creatinine 0.8. Lactic acid level was at 3.1. Troponins were 0.1 and 0.1 respectively x 2 with a proBNP level of 1000. BUN is 21 with a creatinine of 0.8 and UA was also noted with 4 WBCs. Based on his ongoing hypoxic respiratory failure, high airway pressures and severe bronchospasm wheezing, the patient was started on DuoNeb nebulizer treatments [id number], IV Solu-Medrol and patient was kept on propofol and the patient was also started on paralytics with Nimbex. IV fluids are currently running at the rate of 100 cc of normal saline and the patient is also on low- dose norepinephrine for hemodynamic support. 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 Review of Systems ROS unobtainable: due to endotracheal tube Past Medical History Past Medical History: COPD, Diabetes Mellitus, GERD/Reflux, Hyperlipidemia, Hypertension, Sleep Apnea/CPAP/BIPAP, Vascular Disorder Additional Past Medical History / Comment(s): aortic valve stenosis,bipap with O2 @ 3L,uses O2 @ 2 L nc prn during the day-Stg 4 COPD-unable to lay flat on back. Chronic back pain, hx of jaw fx 1978, History of Any Multi-Drug Resistant Organisms: None Reported Past Surgical History: Back Surgery, Heart Catheterization Additional Past Surgical History / Comment(s): lumbar surgery ; pain procedures, COLONOSCOPY, BRONCHOSCOPY Past Anesthesia/Blood Transfusion Reactions: No Reported Reaction Additional Past Anesthesia/Blood Transfusion Reaction / Comment(s): no hx blood transfusion Past Psychological History: No Psychological Hx Reported Smoking Status: Current every day smoker Past Alcohol Use History: None Reported Additional Past Alcohol Use History / Comment(s): SMOKES 1/2 PPD SINCE AGE 12 Past Drug Use History: None Reported - Past Family History Mother Family Medical History: No Reported History Father Family Medical History: COPD, Coronary Artery Disease (CAD) Additional Family Medical History / Comment(s): CABG. peripheral vascular disease Medications and Allergies Home Medications Medication Instructions Recorded Confirmed Type Simvastatin 80 mg PO HS 08/14/18 04/27/25 History Omeprazole 40 mg PO DAILY 03/14/19 04/27/25 History Albuterol Inhaler [Ventolin Hfa 2 puff INHALATION RT-Q6H PRN 09/01/24 04/27/25 History Inhaler] Insulin Glargine,Hum.rec.anlog 29 units SQ HS 09/01/24 04/27/25 History [Lantus Solostar Pen] SITagliptin [Sitagliptin] 100 mg PO DAILY 09/01/24 04/27/25 History predniSONE 10 mg PO DAILY 09/01/24 04/27/25 History metFORMIN HCL [Glucophage] 1,000 mg PO BID #0 04/16/25 04/27/25 Rx Aspirin EC [Ecotrin Low Dose] 81 mg PO DAILY 04/22/25 04/27/25 History Ipratropium-Albuterol Nebulize 3 ml INHALATION RT-Q6H 04/22/25 04/27/25 History [Duoneb 0.5 mg-3 mg/3 ml Soln] Furosemide [Lasix] 40 mg PO DAILY #7 tablet 04/23/25 04/27/25 Rx Fluticasone Nasal Roggen [Flonase 1 spray EA NOSTRIL BID 04/27/25 04/27/25 History Nasal Roggen] Ipratropium/Albuter 20-100Mcg 1 puff INHALATION RT-QID 04/27/25 04/27/25 History [Combivent Respimat 20-100Mcg Inhaler] Lisinopril-Hctz 20-25 mg 1 tab PO DAILY 04/27/25 04/27/25 History [Zestoretic 20-25] Mometasone/Formoterol [Dulera 100 2 puff INHALATION RT-BID 04/27/25 04/27/25 History Mcg-5 Mcg Inhaler] Potassium Chloride [Klor-Con M20] 20 meq PO DAILY 04/27/25 04/27/25 History Allergies Allergy/AdvReac Type Severity Reaction Status Date / Time empagliflozin Allergy Itching Verified 04/27/25 16:09 glipizide Allergy increased Verified 04/27/25 16:09 lactic acid bupropion [From Wellbutrin] AdvReac Nausea Verified 04/27/25 16:09 codeine AdvReac Nausea Verified 04/27/25 16:09 gabapentin AdvReac Nausea & Verified 04/27/25 16:09 Vomiting pregabalin AdvReac Nausea Verified 06/23/25 16:09 Physical Exam Vitals: Vital Signs Temp Pulse Resp BP Pulse Ox FiO2 04/27/25 19:47 90 04/27/25 19:45 90 24 101/67 100 04/27/25 19:37 92 04/27/25 19:30 90 24 82/57 100 100 04/27/25 19:22 89 100 04/27/25 19:15 97.7 F 98 24 83/55 100 04/27/25 19:00 95 24 96/63 04/27/25 18:20 93 25 H 85/61 100 04/27/25 18:15 92 25 H 93/61 100 04/27/25 18:10 92 23 90/61 100 04/27/25 18:05 92 28 H 91/56 100 04/27/25 18:00 92 24 90/60 100 04/27/25 17:55 92 17 88/61 100 04/27/25 17:50 92 32 H 92/56 100 04/27/25 17:45 92 26 H 92/56 100 04/27/25 17:40 93 26 H 97/56 100 04/27/25 17:36 96.9 F L 04/27/25 17:35 92 31 H 92/56 100 04/27/25 17:30 92 27 H 91/56 100 04/27/25 17:25 92 31 H 89/53 100 04/27/25 17:20 92 32 H 83/50 100 04/27/25 17:19 100 04/27/25 17:15 93 26 H 80/52 100 04/27/25 17:10 93 20 108/71 100 04/27/25 17:09 95 29 H 108/71 100 04/27/25 15:53 103 H 21 04/27/25 15:40 107 H 28 H 04/27/25 15:24 105 H 18 184/116 98 04/27/25 15:23 100 04/27/25 15:15 100 Intake and Output 04/27/25 04/27/25 04/27/25 06:59 14:59 22:59 Intake Total 191.926 Output Total 300 Balance -108.074 Intake: IV 100 Sodium Chloride 0.9% 1, 100 000 ml @ 100 mls/hr IV . Q10H [facility] Rx#:[id number] Intake, IV Titration 91.926 Amount Cisatracurium 200 mg In 2.798 Sodium Chloride 0.9% 180 ml @ 1 MCG/KG/MIN 5.416 mls/hr IV .Q24H [facility] Rx#: [id number] Norepinephrine 8 mg In 3.319 Sodium Chloride 0.9% 250 ml @ 0.03 MCG/KG/MIN 5.24 mls/hr IV .Q24H [facility] Rx#: [id number] propofoL 1,000 mg In 85.809 Empty Bag 1 bag @ 15 MCG/ KG/MIN 8.124 mls/hr IV . [id number] [facility] Rx#:[id number] Output: Gastric Drainage 100 Urine 200 Other: Weight 90.265 kg The patient appeared well nourished and normally developed. Vital signs as documented. The patient is currently intubated on mechanical ventilator. Orotracheal and gastric tube are both in place. Head exam is unremarkable. No scleral icterus or corneal arcus noted. Neck is without jugular venous distension, thyromegaly, or carotid bruits. Carotid upstrokes are brisk bilaterally. Lungs show mild diminished breath sounds bilaterally, air entry is quite limited and the patient has prolongation of isolation phase of breathing and ongoing bronchospasm wheezing. Cardiac exam reveals the PMI to be normally sized and situated. Rhythm is regular. First and second heart sounds normal. No murmurs, rubs or gallops. Abdominal exam reveals normal bowel sounds, no masses, no organomegaly and no aortic enlargement. Lower abdominal hematoma extending to left flank Extremities are nonedematous and both femoral and pedal pulses are diminished bilaterally Examination of the skin revealed no evidence of significant rashes, suspicious appearing nevi or other concerning lesions. Neurologically, the patient is sedated and paralyzed. Results - Laboratory Findings CBC and BMP: 04/27/25 15:18 04/27/25 15:18 ABG ABG pH 7.00 (7.35-7.45) L* 04/27/25 15:58 ABG pCO2 >98 mmHg (35-45) H* 04/27/25 15:58 ABG pO2 232 mmHg (83-108) H 04/27/25 15:58 ABG O2 Saturation 99.5 % (94-97) H 04/27/25 15:58 PT/INR, D-dimer PT 12.5 sec (10.0-12.5) 04/27/25 15:18 INR 1.2 (<1.2) H 04/27/25 15:18 Abnormal lab findings: Abnormal Labs 04/27/25 04/27/25 04/27/25 15:18 15:18 15:18 WBC 18.42 H RBC 3.95 L Hgb 11.5 L Hct 36.9 L MCHC 31.2 L Plt Count 516 H MPV 8.8 L Immature Gran # 0.27 H Neutrophils # 15.77 H Lymphocytes # 0.64 L Monocytes # 1.70 H Eosinophils # 0.00 L INR 1.2 H ABG pH ABG pCO2 ABG pO2 ABG O2 Saturation Hemoglobin Potassium Chloride Carbon Dioxide BUN Glucose POC Glucose (mg/dL) Plasma Lactic Acid Paco Total Bilirubin AST ALT Troponin I Urine Protein 2+ H Urine RBC 8 H Urine Bacteria Many H Hyaline Casts 19 H Urine Mucus Rare H 04/27/25 04/27/25 04/27/25 15:18 15:18 15:22 WBC RBC Hgb Hct MCHC Plt Count MPV Immature Gran # Neutrophils # Lymphocytes # Monocytes # Eosinophils # INR ABG pH ABG pCO2 ABG pO2 ABG O2 Saturation Hemoglobin Potassium 5.6 H Chloride 93 L Carbon Dioxide 33 H BUN 21 H Glucose 117 H POC Glucose (mg/dL) 129 H Plasma Lactic Acid Paco Total Bilirubin 2.8 H AST 374 H ALT 321 H Troponin I 0.107 H* Urine Protein Urine RBC Urine Bacteria Hyaline Casts Urine Mucus 04/27/25 04/27/25 04/27/25 15:58 17:47 17:55 WBC RBC Hgb Hct MCHC Plt Count MPV Immature Gran # Neutrophils # Lymphocytes # Monocytes # Eosinophils # INR ABG pH 7.00 L* ABG pCO2 >98 H* ABG pO2 232 H ABG O2 Saturation 99.5 H Hemoglobin 10.9 L Potassium Chloride Carbon Dioxide BUN Glucose POC Glucose (mg/dL) Plasma Lactic Acid Paco 3.1 H* Total Bilirubin AST ALT Troponin I 0.140 H* Urine Protein Urine RBC Urine Bacteria Hyaline Casts Urine Mucus 04/27/25 20:18 WBC RBC Hgb Hct MCHC Plt Count MPV Immature Gran # Neutrophils # Lymphocytes # Monocytes # Eosinophils # INR ABG pH ABG pCO2 ABG pO2 ABG O2 Saturation Hemoglobin Potassium Chloride Carbon Dioxide BUN Glucose POC Glucose (mg/dL) 153 H Plasma Lactic Acid Paco Total Bilirubin AST ALT Troponin I Urine Protein Urine RBC Urine Bacteria Hyaline Casts Urine Mucus - Diagnostic Findings Chest x-ray: image reviewed CT scan - chest: image reviewed Assessment and Plan Plan: Acute cardiopulmonary arrest although we suspect that this is most likely pulmonary arrest followed by cardiac arrest and the patient was briefly resuscitated in the emergency department received a round of epinephrine and CPR with return of spontaneous circulation. The patient is intubated and subsequ ently the patient was found to be in acute hypercapnic respiratory failure. Acute hypercapnic respiratory failure essentially due to COPD exacerbation. CT of the chest was negative. CT scan of the abdomen and pelvis showed a stable left flank hematoma. Left flank hematoma status post TAVR Hemodynamically stable. No interval drop in the hemoglobin levels Advanced COPD with chronic hypoxic respiratory failure, O2 dependent with severe obstructive limitation Obstructive sleep apnea, maintained on CPAP therapy on outpatient basis Lactic acidosis Mild troponin leak, likely type II myocardial ischemia post cardiopulmonary arrest Left flank hematoma post TAVR Symptomatic severe aortic stenosis post TAVR on 04/15/2025 PAD with history of left femoral artery occlusion Hypertension Hyperlipidemia Type 2 diabetes mellitus Plan Keep the patient intubated on a mechanical ventilator. Dropped the tidal volume to 400, gradual wean down FiO2 as tolerated to monitor the peak airway pressures DuoNeb nebulizer treatments [id number] Perforomist and Pulmicort nebulized treatments twice a day IV Solu-Medrol 60 mg every 6 hours Keep the patient sedated and paralyzed over the next 24 hours and the patient is currently on a combination of propofol and Nimbex Utilize norepinephrine if needed to maintain mean atrial pressure above 65 IV Protonix Normal saline rate of 100 cc an hour Heparin subcu Lovenox 40 mg subcu for DVT prophylaxis echocardiogram from 04/16/2025 showed normal LV, TAVR noted with a mean gradient of 15 mmHg Monitor blood gases Monitor hemoglobin Monitor left flank hematoma Critical care evaluation Time with Patient: Greater than 30
--- NOTE | 2025-04-27 20:53 | XR ---
EXAMINATION TYPE: XR chest 1V portable DATE OF EXAM: 04/27/2025 8:48 PM COMPARISON: None. CLINICAL INDICATION: Male, 64 years old with history of ETT placement TECHNIQUE: XR chest 1V portable view(s) obtained. FINDINGS: The heart size is normal. The pulmonary vasculature is prominent. The lungs are clear. Endotracheal tube tip is 10 cm above the yakelin. Nasogastric tube tip is in the distal thoracic esoph ageal region. IMPRESSION: 1. No acute pulmonary process. 2. Lines and catheters discussed above. [facility], , 04/27/2025 8:51 PM
--- NOTE | 2025-04-27 20:54 | XR ---
EXAMINATION TYPE: XR chest 1V portable DATE OF EXAM: 04/27/2025 8:48 PM COMPARISON: Earlier exam CLINICAL INDICATION: Male, 64 years old with history of tube placement, TECHNIQUE: XR chest 1V portable view(s) obtained. FINDINGS: The heart size is normal. The pulmonary vasculature is normal. The lungs are clear. r the endotracheal tube has been advanced and has its tip located 7.2 cm above the yakelin. Nasogastri c tube remains in position with the tip in the distal thoracic esophageal region. This should be appr oximately 10 cm for better positioning IMPRESSION: 1. No acute pulmonary process. 2. Lines and catheters discussed above [facility], , 04/27/2025 8:52 PM
--- NOTE | 2025-04-27 21:22 | P.PCN ---
Date of Procedure: 04/27/25 Operative Findings: Indication: Hemodynamic monitoring/Intravenous access. A time-out was completed verifying correct patient, procedure, site, positioning, and implant(s) or special equipment if applicable. The patient was placed in a dependent position appropriate for triple lumen catheter placement based on the vein to be cannulated. The patient's left subclavian area was prepped and draped in sterile fashion. 1% Lidocaine was used to anesthetize the surrounding skin area. A triple lumen 9F Cordis catheter was introduced into the subclavian vein using Seldinger technique. The catheter was threaded smoothly over the guide wire and appropriate blood return was obtained. Each lumen of the catheter was evacuated of air and flushed with sterile saline. The catheter was then sutured in place to the skin and a sterile dressing applied. Perfusion to the extremity distal to the point of ca theter insertion was checked and found to be adequate.
--- NOTE | 2025-04-27 21:29 | XR ---
EXAMINATION TYPE: XR chest 1V portable DATE OF EXAM: 04/27/2025 9:20 PM COMPARISON: 04/27/2025 CLINICAL INDICATION: Male, 64 years old with history of central line placement, TECHNIQUE: XR chest 1V portable view(s) obtained. Right lateral chest excluded from the [id number] . FINDINGS: The heart size is normal. The pulmonary vasculature is normal. The lungs are clear. The endotracheal tube tip is 8 cm above the yakelin. Nasogastric tube is present, distal tip cannot be identified. It is uncertain if this is been advanced from prior exam. There is placement of a left central venous catheter. The tip is in the superior vena cava region. No pneumothorax evident. IMPRESSION: 1. No acute pulmonary process. 2. Placement of left central venous catheter with tip in the superior vena cava. No pneumothorax evid ent. 3. Lines and catheters discussed above. The nasogastric tube tip cannot be identified on this exam. [facility], , 04/27/2025 9:27 PM
[2025-04-27] MEDS ORDERED: methylPREDNISolone SOD SUCCI 40 MG/ML 1 ML VIAL IV SCH (22:00)
[2025-04-27] MEDS: ATORVASTATIN 40 MG TAB PO SCH (23:56)
[2025-04-27] MEDS: CHLORHEXIDINE GLUCONATE 15 ML CUP MUCOUS MEM SCH (23:57)
[2025-04-27] MEDS: ENOXAPARIN 40 MG/0.4 ML SYRINGE SQ SCH (23:57)
--- NOTE | 2025-04-28 00:17 | P.PCN ---
Date of Procedure: 04/28/25 Preoperative Diagnosis: Acute hypoxemic and hypercapnic respiratory failure; hypotension/shock Postoperative Diagnosis: Acute hypoxemic and hypercapnic respiratory failure; hypotension/shock Procedure(s) Performed: Insertion of left brachial arterial line Indications for Procedure: Hemodynamic monitoring and frequent blood draws Description of Procedure: Informed consent was obtained, and a procedural timeout was performed . The patient was placed in supine position. The left brachial region was prepared in a sterile fashion, and a sterile drape was applied. The left brachial artery was palpated, easily cannulated, and a guidewire was placed. A Cook catheter was inserted over the guidewire, and the guidewire was removed. There was good arterial blood flow, good arterial waveform, and no complications. The line was secured with using a 3-0 silk suture.
[2025-04-28 00:24] LABS: ABG HCO3 33 mmol/L (21-25); ABG PH 7.24 (7.35-7.45); ABG PO2 76 mmHg (83-108); ABG TCO2 35 mmol/L (19-24)
[2025-04-28 00:26] LABS: ABG PCO2 76 mmHg (35-45); Allen Test Performed? no
[2025-04-28] MEDS: methylPREDNISolone SOD SUCCI 125 MG/2 ML VIAL IV SCH (00:53)
[2025-04-28 01:29] LABS: Glucose,Whole Blood 208 mg/dL (70-110)
[2025-04-28 05:27] LABS: ABG HCO3 33 mmol/L (21-25); ABG PH 7.25 (7.35-7.45); ABG PO2 83 mmHg (83-108); ABG TCO2 36 mmol/L (19-24)
[2025-04-28 05:29] LABS: ABG PCO2 77 mmHg (35-45); Allen Test Performed? no
[2025-04-28 06:17] LABS: Basophils # (A) 0.05 10*3/uL (0.00-0.10); Basophils % (A) 0.3 %; Eosinophils # (A) 0.00 10*3/uL (0.04-0.35); Eosinophils % (A) 0.0 %; HCT 33.3 % (39.6-50.0); HGB 10.2 g/dL (13.0-17.0); Lymphocytes # (A) 0.24 10*3/uL (0.90-5.00); Lymphocytes % (A) 1.2 %; MCH 28.6 pg (27.0-32.0); MCHC 30.6 g/dL (32.0-37.0); MCV 93.3 fL (80.0-97.0); Monocytes # (A) 0.67 10*3/uL (0.20-1.00); Monocytes % (A) 3.4 %; Neutrophils # (A) 18.68 10*3/uL (1.80-7.70); Neutrophils % (A) 94.7 %; Platelet Count 410 10*3/uL (140-440); RBC 3.57 10*6/uL (4.40-5.60); RDW 15.3 % (11.5-14.5); WBC 19.71 10*3/uL (4.50-10.00)
[2025-04-28 06:48] LABS: African American GFR (CKD) 82 (>60 ml/min/1.73 sqM); Albumin 3.8 g/dL (3.5-5.0); Alkaline Phosphatase 86 U/L (38-126); Anion Gap 7 mmol/L; Blood Urea Nitrogen 40 mg/dL (9-20); Calcium 8.6 mg/dL (8.4-10.2); Carbon Dioxide 34 mmol/L (22-30); Chloride 95 mmol/L (98-107); Glucose 217 mg/dL (74-99); Magnesium 2.1 mg/dL (1.6-2.3); Non-African American GFR(CKD) 71 (>60 ml/min/1.73 sqM); Potassium 5.2 mmol/L (3.5-5.1); Sodium 136 mmol/L (137-145); Total Protein 6.1 g/dL (6.3-8.2)
[2025-04-28 06:56] LABS: ALT 1317 U/L (4-49); AST 1110 U/L (17-59)
[2025-04-28 07:08] LABS: Glucose,Whole Blood 236 mg/dL (70-110)
--- NOTE | 2025-04-28 08:12 | XR ---
EXAMINATION TYPE: XR chest 1V portable DATE OF EXAM: 04/28/2025 4:58 AM COMPARISON: 04/27/2025 CLINICAL INDICATION: Male, 64 years old with history of Tube placement, , FINDINGS: Heart normal size. Hyperinflation. Distal aspect of the NG tube is not clearly seen beyond the lower chest level. ET tube remains in place. Left CVC tip at the mid to lower SVC. Endovascular aortic valv e replacement. Interstitial densities have worsened in the interval. IMPRESSION: 1. COPD with interval worsening in diffuse bilateral interstitial opacities. 2. NG tube present. Distal aspect not clearly seen beyond the lower chest level. [facility], Workstation: [id number], 04/28/2025 8:10 AM
[2025-04-28] MEDS: PANTOPRAZOLE 40 MG/10 ML VIAL IV SCH (08:44)
[2025-04-28] MEDS: ASPIRIN 81 MG PO SCH (08:45)
[2025-04-28] MEDS: POTASSIUM CHLORIDE ER 20 MEQ TAB.ER PO SCH (08:45)
[2025-04-28] MEDS ORDERED: LISINOPRIL-HCTZ 20-25 MG 1 EACH TAB PO SCH (09:00)
[2025-04-28] MEDS ORDERED: DEXTROSE 50% SYRINGE 50 ML IVP PRN (09:18)
--- NOTE | 2025-04-28 09:32 | P.GSCN ---
History of Present Illness Consult date: 04/28/25 Reason for Consult: Known to the cardiothoracic surgery service, recent TAVR on April 15, 2025 Requesting physician: Flora Willard History of present illness: This is a 64-year-old gentleman who follows on an outpatient basis with physician addictions counselor assistant Juhi Crocker for his primary care and with Dr. Pablo for his cardiology care. He has a past medical history for calcified aortic valve with severe symptomatic aortic valve stenosis, NYHA class II, recent TAVR placement on April 15, 2025, hypertension, hyperlipidemia, insulin-dependent diabetes mellitus, severe COPD with home oxygen use 2 L nasal cannula and a preoperative TAVR FEV1 20% of predicted value with a base volume of 0.7 L, peripheral arterial disease, obstructive sleep apnea with home CPAP use and chronic ongoing tobacco dependence. The patient also has a history of a left flank hematoma status post TAVR procedure. He presented to the emergency department here at [facility] yesterday April 27, 2025 with complaints of difficulty breathing. According to his chart he had some decreased responsiveness and arrested upon arrival with CPR immediately initiated. 1 round of epinephrine and CPR were completed and the patient was subsequently intubated with return of spontaneous circulation. The patient was seen and examined at his bedside in the intensive care unit, he remains intubated, with mechanical ventilator support, is currently sedated on propofol drip and is paralyzed on Nimbex. Norepinephrine drip is infusing at 0.01 mcg/kg/min for blood pressure support. Initial laboratory results showed a WBC count of 18.42, hemoglobin 11.5, hematocrit 36.9, platelets 516, sodium 137, potassium 5.6, chloride 93, CO2 33, BUN 21, creatinine 0.83, glucose 117, calcium 9.1, magnesium 2.2, AST 374, ALT 321, proBNP 1030, and elevated serial troponins as high as 0.214. Initial blood gas showed a pH of 7.00, PCO2 greater than 98, pO2 232, oxygen saturation 99.5, on FiO2 100%. EKG was completed which showed sinus tachycardia with right bundle branch block heart rate 108 bpm. A chest x-ray was completed which showed a small left pleural effusion. A CAT scan of the brain without contrast was completed due to the patient's altered mental status which showed no acute intercranial process, and bilateral maxillary sinusitis. The patient also underwent a CT chest angio rule out PE which demonstrated no acute pulmonary embolism. Due to the patient's history of left flank hematoma a CT abdomen pelvis with contrast was completed which redemonstrated a left flank hematoma, and no suspicious acute changes. The yojana arreola was subsequently admitted to the intensive care unit for further hemodynamic monitoring. Dr. Keesha Young was consulted from cardiothoracic surgery as the patient underwent a recent TAVR procedure on 04/15/2025. Review of Systems Unable to obtain at this time as the patient is sedated, intubated and on Nimbex drip. Past Medical History Past Medical History: COPD, Diabetes Mellitus, GERD/Reflux, Hyperlipidemia, Hypertension, Respiratory Disorder, Sleep Apnea/CPAP/BIPAP, Vascular Disorder Additional Past Medical History / Comment(s): aortic valve stenosis,bipap with O2 @ 3L,uses O2 @ 2 L nc prn during the day-Stg 4 COPD-unable to lay flat on back. Chronic back pain, hx of jaw fx 1978, History of Any Multi-Drug Resistant Organisms: None Reported Past Surgical History: Back Surgery, Cardiac Valve Replacement (April 15, 2025), Heart Catheterization, Orthopedic Surgery Additional Past Surgical History / Comment(s): lumbar surgery ; pain procedures, COLONOSCOPY, BRONCHOSCOPY Past Anesthesia/Blood Transfusion Reactions: No Reported Reaction Additional Past Anesthesia/Blood Transfusion Reaction / Comm: no hx blood transfusion Past Psychological History: No Psychological Hx Reported Smoking Status: Current every day smoker Past Alcohol Use History: None Reported Additional Past Alcohol Use History / Comment(s): SMOKES 1/2 PPD SINCE AGE 12 Past Drug Use History: None Reported - Past Family History Mother Family Medical History: No Reported History Father Family Medical History: COPD, Coronary Artery Disease (CAD) Additional Family Medical History / Comment(s): CABG. peripheral vascular disease Medications and Allergies Home Medications Medication Instructions Recorded Confirmed Type Simvastatin 80 mg PO HS 08/14/18 04/27/25 History Omeprazole 40 mg PO DAILY 03/14/19 04/27/25 History Albuterol Inhaler [Ventolin Hfa 2 puff INHALATION RT-Q6H PRN 09/01/24 04/27/25 History Inhaler] Insulin Glargine,Hum.rec.anlog 29 units SQ HS 09/01/24 04/27/25 History [Lantus Solostar Pen] SITagliptin [Sitagliptin] 100 mg PO DAILY 09/01/24 04/27/25 History predniSONE 10 mg PO DAILY 09/01/24 04/27/25 History metFORMIN HCL [Glucophage] 1,000 mg PO BID #0 04/16/25 04/27/25 Rx Aspirin EC [Ecotrin Low Dose] 81 mg PO DAILY 04/22/25 04/27/25 History Ipratropium-Albuterol Nebulize 3 ml INHALATION RT-Q6H 04/22/25 04/27/25 History [Duoneb 0.5 mg-3 mg/3 ml Soln] Furosemide [Lasix] 40 mg PO DAILY #7 tablet 04/23/25 04/27/25 Rx Fluticasone Nasal [place] [Flonase 1 spray EA NOSTRIL BID 04/27/25 04/27/25 History Nasal [place]] Ipratropium/Albuter 20-100Mcg 1 puff INHALATION RT-QID 04/27/25 04/27/25 History [Combivent Respimat 20-100Mcg Inhaler] Lisinopril-Hctz 20-25 mg 1 tab PO DAILY 04/27/25 04/27/25 History [Zestoretic 20-25] Mometasone/Formoterol [Dulera 100 2 puff INHALATION RT-BID 04/27/25 04/27/25 History Mcg-5 Mcg Inhaler] Potassium Chloride [Klor-Con M20] 20 meq PO DAILY 04/27/25 04/27/25 History Allergies Allergy/AdvReac Type Severity Reaction Status Date / Time empagliflozin Allergy Itching Verified 04/27/25 16:09 glipizide Allergy increased Verified 04/27/25 16:09 lactic acid bupropion [From Wellbutrin] AdvReac Nausea Verified 04/27/25 16:09 codeine AdvReac Nausea Verified 04/27/25 16:09 gabapentin AdvReac Nausea & Verified 04/27/25 16:09 Vomiting pregabalin AdvReac Nausea Verified 04/27/25 16:09 Surgical - Exam Vital Signs FiO2 100 04/27/25 15:15 - General well developed, well nourished, chronically ill, obese - Eyes PERRL, normal ocular movement, no pale, no icteric - ENT normal pinna, normal nares, normal mucosa, no hearing loss, no congestion - Neck no masses, no bruits, trachea midline, no venous distension - Respiratory Remains intubated with mechanical ventilator support. Lung sounds diminished throughout. No wheezes, rhonchi or crackles. - Cardiovascular Regular rhythm and rate. S1 and S2 present, negative for S3, gallop or murmur. +2 pitting edema to his bilateral lower extremities. - Abdomen Abdomen is soft, nontender nondistended. Active bowel sounds present all 4 a bdominal quadrants. Lower abdominal hematoma extending to the left flank - Genitourinary Gee catheter in place. - Rectum Deferred - Integumentary Skin is warm and dry. No clubbing or cyanosis is present. no rash, no growths - Neurologic Unable to accurately assess at this time as the patient is paralyzed on Nimbex drip and is currently sedated on propofol drip. - Musculoskeletal Unable to accurately assess at this time as the patient is paralyzed on Nimbex drip and is currently sedated on propofol drip. - Psychiatric Unable to accurately assess at this time as the patient is paralyzed on Nimbex drip and is currently sedated on propofol drip. Results - Labs 04/28/25 06:00 04/28/25 06:00 Abnormal Lab Results - Last 24 Hours (Table) 04/27/25 04/27/25 04/27/25 Range/Units 15:18 15:18 15:18 WBC 18.42 H (4.50-10.00) 10*3/uL RBC 3.95 L (4.40-5.60) 10*6/uL Hgb 11.5 L (13.0-17.0) g/dL Hct 36.9 L (39.6-50.0) % MCHC 31.2 L (32.0-37.0) g/dL Plt Count 516 H (140-440) 10*3/uL MPV 8.8 L (9.5-12.2) fL Immature Gran # 0.27 H (0.00-0.04) 10*3/uL Neutrophils # 15.77 H (1.80-7.70) 10*3/uL Lymphocytes # 0.64 L (0.90-5.00) 10*3/uL Monocytes # 1.70 H (0.20-1.00) 10*3/uL Eosinophils # 0.00 L (0.04-0.35) 10*3/uL INR 1.2 H (<1.2) ABG pH (7.35-7.45) ABG pCO2 (35-45) mmHg ABG pO2 (83-108) mmHg ABG HCO3 (21-25) mmol/L ABG Total CO2 (19-24) mmol/L ABG O2 Saturation (94-97) % Hemoglobin (13.0-17.5) gm/dL Sodium (137-145) mmol/L Potassium (3.5-5.1) mmol/L Chloride (98-107) mmol/L Carbon Dioxide (22-30) mmol/L BUN (9-20) mg/dL Glucose (74-99) mg/dL POC Glucose (mg/dL) (70-110) mg/dL Plasma Lactic Acid Paco (0.7-2.0) mmol/L Total Bilirubin (0.2-1.3) mg/dL AST (17-59) U/L ALT (4-49) U/L Troponin I (0.000-0.034) ng/mL Total Protein (6.3-8.2) g/dL Urine Protein 2+ H (Negative) Urine RBC 8 H (0-5) /hpf Urine Bacteria Many H (None) /hpf Hyaline Casts 19 H (0-2) /lpf Urine Mucus Rare H (None) /hpf 04/27/25 04/27/25 04/27/25 Range/Units 15:18 15:18 15:22 WBC (4.50-10.00) 10*3/uL RBC (4.40-5.60) 10*6/uL Hgb (13.0-17.0) g/dL Hct (39.6-50.0) % MCHC (32.0-37.0) g/dL Plt Count (140-440) 10*3/uL MPV (9.5-12.2) fL Immature Gran # (0.00-0.04) 10*3/uL Neutrophils # (1.80-7.70) 10*3/uL Lymphocytes # (0.90-5.00) 10*3/uL Monocytes # (0.20-1.00) 10*3/uL Eosinophils # (0.04-0.35) 10*3/uL INR (<1.2) ABG pH (7.35-7.45) ABG pCO2 (35-45) mmHg ABG pO2 (83-108) mmHg ABG HCO3 (21-25) mmol/L ABG Total CO2 (19-24) mmol/L ABG O2 Saturation (94-97) % Hemoglobin (13.0-17.5) gm/dL Sodium (137-145) mmol/L Potassium 5.6 H (3.5-5.1) mmol/L Chloride 93 L (98-107) mmol/L Carbon Dioxide 33 H (22-30) mmol/L BUN 21 H (9-20) mg/dL Glucose 117 H (74-99) mg/dL POC Glucose (mg/dL) 129 H (70-110) mg/dL Plasma Lactic Acid Paco (0.7-2.0) mmol/L Total Bilirubin 2.8 H (0.2-1.3) mg/dL AST 374 H (17-59) U/L ALT 321 H (4-49) U/L Troponin I 0.107 H* (0.000-0.034) ng/mL Total Protein (6.3-8.2) g/dL Urine Protein (Negative) Urine RBC (0-5) /hpf Urine Bacteria (None) /hpf Hyaline Casts (0-2) /lpf Urine Mucus (None) /hpf 04/27/25 04/27/25 04/27/25 Range/Units 15:58 17:47 17:55 WBC (4.50-10.00) 10*3/uL RBC (4.40-5.60) 10*6/uL Hgb (13.0-17.0) g/dL Hct (39.6-50.0) % MCHC (32.0-37.0) g/dL Plt Count (140-440) 10*3/uL MPV (9.5-12.2) fL Immature Gran # (0.00-0.04) 10*3/uL Neutrophils # (1.80-7.70) 10*3/uL Lymphocytes # (0.90-5.00) 10*3/uL Monocytes # (0.20-1.00) 10*3/uL Eosinophils # (0.04-0.35) 10*3/uL INR (<1.2) ABG pH 7.00 L* (7.35-7.45) ABG pCO2 >98 H* (35-45) mmHg ABG pO2 232 H (83-108) mmHg ABG HCO3 (21-25) mmol/L ABG Total CO2 (19-24) mmol/L ABG O2 Saturation 99.5 H (94-97) % Hemoglobin 10.9 L (13.0-17.5) gm/dL Sodium (137-145) mmol/L Potassium (3.5-5.1) mmol/L Chloride (98-107) mmol/L Carbon Dioxide (22-30) mmol/L BUN (9-20) mg/dL Glucose (74-99) mg/dL POC Glucose (mg/dL) (70-110) mg/dL Plasma Lactic Acid Paco 3.1 H* (0.7-2.0) mmol/L Total Bilirubin (0.2-1.3) mg/dL AST (17-59) U/L ALT (4-49) U/L Troponin I 0.140 H* (0.000-0.034) ng/mL Total Protein (6.3-8.2) g/dL Urine Protein (Negative) Urine RBC (0-5) /hpf Urine Bacteria (None) /hpf Hyaline Casts (0-2) /lpf Urine Mucus (None) /hpf 04/27/25 04/27/25 04/27/25 Range/Units 20:18 21:16 21:16 WBC (4.50-10.00) 10*3/uL RBC (4.40-5.60) 10*6/uL Hgb (13.0-17.0) g/dL Hct (39.6-50.0) % MCHC (32.0-37.0) g/dL Plt Count (140-440) 10*3/uL MPV (9.5-12.2) fL Immature Gran # (0.00-0.04) 10*3/uL Neutrophils # (1.80-7.70) 10*3/uL Lymphocytes # (0.90-5.00) 10*3/uL Monocytes # (0.20-1.00) 10*3/uL Eosinophils # (0.04-0.35) 10*3/uL INR (<1.2) ABG pH (7.35-7.45) ABG pCO2 (35-45) mmHg ABG pO2 (83-108) mmHg ABG HCO3 (21-25) mmol/L ABG Total CO2 (19-24) mmol/L ABG O2 Saturation (94-97) % Hemoglobin (13.0-17.5) gm/dL Sodium (137-145) mmol/L Potassium (3.5-5.1) mmol/L Chloride (98-107) mmol/L Carbon Dioxide (22-30) mmol/L BUN (9-20) mg/dL Glucose (74-99) mg/dL POC Glucose (mg/dL) 153 H (70-110) mg/dL Plasma Lactic Acid Paco 3.9 H* (0.7-2.0) mmol/L Total Bilirubin (0.2-1.3) mg/dL AST (17-59) U/L ALT (4-49) U/L Troponin I 0.214 H* (0.000-0.034) ng/mL Total Protein (6.3-8.2) g/dL Urine Protein (Negative) Urine RBC (0-5) /hpf Urine Bacteria (None) /hpf Hyaline Casts (0-2) /lpf Urine Mucus (None) /hpf 04/27/25 04/28/25 04/28/25 Range/Units 23:46 00:16 01:28 WBC (4.50-10.00) 10*3/uL RBC (4.40-5.60) 10*6/uL Hgb (13.0-17.0) g/dL Hct (39.6-50.0) % MCHC (32.0-37.0) g/dL Plt Count (140-440) 10*3/uL MPV (9.5-12.2) fL Immature Gran # (0.00-0.04) 10*3/uL Neutrophils # (1.80-7.70) 10*3/uL Lymphocytes # (0.90-5.00) 10*3/uL Monocytes # (0.20-1.00) 10*3/uL Eosinophils # (0.04-0.35) 10*3/uL INR (<1.2) ABG pH 7.24 L (7.35-7.45) ABG pCO2 76 H* (35-45) mmHg ABG pO2 76 L (83-108) mmHg ABG HCO3 33 H (21-25) mmol/L ABG Total CO2 35 H (19-24) mmol/L ABG O2 Saturation 92.8 L (94-97) % Hemoglobin 10.5 L (13.0-17.5) gm/dL Sodium (137-145) mmol/L Potassium 5.3 H (3.5-5.1) mmol/L Chloride (98-107) mmol/L Carbon Dioxide (22-30) mmol/L BUN (9-20) mg/dL Glucose (74-99) mg/dL POC Glucose (mg/dL) 208 H (70-110) mg/dL Plasma Lactic Acid Paco (0.7-2.0) mmol/L Total Bilirubin (0.2-1.3) mg/dL AST (17-59) U/L ALT (4-49) U/L Troponin I (0.000-0.034) ng/mL Total Protein (6.3-8.2) g/dL Urine Protein (Negative) Urine RBC (0-5) /hpf Urine Bacteria (None) /hpf Hyaline Casts (0-2) /lpf Urine Mucus (None) /hpf 04/28/25 04/28/25 04/28/25 Range/Units 05:14 06:00 06:00 WBC 19.71 H (4.50-10.00) 10*3/uL RBC 3.57 L (4.40-5.60) 10*6/uL Hgb 10.2 L (13.0-17.0) g/dL Hct 33.3 L (39.6-50.0) % MCHC 30.6 L (32.0-37.0) g/dL Plt Count (140-440) 10*3/uL MPV 8.8 L (9.5-12.2) fL Immature Gran # 0.07 H (0.00-0.04) 10*3/uL Neutrophils # 18.68 H (1.80-7.70) 10*3/uL Lymphocytes # 0.24 L (0.90-5.00) 10*3/uL Monocytes # (0.20-1.00) 10*3/uL Eosinophils # 0.00 L (0.04-0.35) 10*3/uL INR (<1.2) ABG pH 7.25 L (7.35-7.45) ABG pCO2 77 H* (35-45) mmHg ABG pO2 (83-108) mmHg ABG HCO3 33 H (21-25) mmol/L ABG Total CO2 36 H (19-24) mmol/L ABG O2 Saturation (94-97) % Hemoglobin 10.6 L (13.0-17.5) gm/dL Sodium 136 L (137-145) mmol/L Potassium 5.2 H (3.5-5.1) mmol/L Chloride 95 L (98-107) mmol/L Carbon Dioxide 34 H (22-30) mmol/L BUN 40 H (9-20) mg/dL Glucose 217 H (74-99) mg/dL POC Glucose (mg/dL) (70-110) mg/dL Plasma Lactic Acid Paco (0.7-2.0) mmol/L Total Bilirubin (0.2-1.3) mg/dL AST 1110 H (17-59) U/L ALT 1317 H (4-49) U/L Troponin I (0.000-0.034) ng/mL Total Protein 6.1 L (6.3-8.2) g/dL Urine Protein (Negative) Urine RBC (0-5) /hpf Urine Bacteria (None) /hpf Hyaline Casts (0-2) /lpf Urine Mucus (None) /hpf 04/28/25 Range/Units 07:07 WBC (4.50-10.00) 10*3/uL RBC (4.40-5.60) 10*6/uL Hgb (13.0-17.0) g/dL Hct (39.6-50.0) % MCHC (32.0-37.0) g/dL Plt Count (140-440) 10*3/uL MPV (9.5-12.2) fL Immature Gran # (0.00-0.04) 10*3/uL Neutrophils # (1.80-7.70) 10*3/uL Lymphocytes # (0.90-5.00) 10*3/uL Monocytes # (0.20-1.00) 10*3/uL Eosinophils # (0.04-0.35) 10*3/uL INR (<1.2) ABG pH (7.35-7.45) ABG pCO2 (35-45) mmHg ABG pO2 (83-108) mmHg ABG HCO3 (21-25) mmol/L ABG Total CO2 (19-24) mmol/L ABG O2 Saturation (94-97) % Hemoglobin (13.0-17.5) gm/dL Sodium (137-145) mmol/L Potassium (3.5-5.1) mmol/L Chloride (98-107) mmol/L Carbon Dioxide (22-30) mmol/L BUN (9-20) mg/dL Glucose (74-99) mg/dL POC Glucose (mg/dL) 236 H (70-110) mg/dL Plasma Lactic Acid Paco (0.7-2.0) mmol/L Total Bilirubin (0.2-1.3) mg/dL AST (17-59) U/L ALT (4-49) U/L Troponin I (0.000-0.034) ng/mL Total Protein (6.3-8.2) g/dL Urine Protein (Negative) Urine RBC (0-5) /hpf Urine Bacteria (None) /hpf Hyaline Casts (0-2) /lpf Urine Mucus (None) /hpf Microbiology - Last 24 Hours (Table) 04/27/25 15:41 Gram Stain - Preliminary Sputum Diabetes panel 04/27/25 04/27/25 04/28/25 Range/Units 15:18 23:46 06:00 Sodium 137 136 L (137-145) mmol/L Potassium 5.6 H 5.3 H 5.2 H (3.5-5.1) mmol/L Chloride 93 L 95 L (98-107) mmol/L Carbon Dioxide 33 H 34 H (22-30) mmol/L BUN 21 H 40 H (9-20) mg/dL Creatinine 0.83 1.10 (0.66-1.25) mg/dL Glucose 117 H 217 H (74-99) mg/dL Calcium 9.1 8.6 (8.4-10.2) mg/dL AST 374 H 1110 H (17-59) U/L ALT 321 H 1317 H (4-49) U/L Alkaline Phosphatase 83 86 (38-126) U/L Total Protein 7.3 6.1 L (6.3-8.2) g/dL Albumin 4.7 3.8 (3.5-5.0) g/dL Calcium panel 04/27/25 04/28/25 Range/Units 15:18 06:00 Calcium 9.1 8.6 (8.4-10.2) mg/dL Albumin 4.7 3.8 (3.5-5.0) g/dL Pituitary panel 04/27/25 04/27/25 04/28/25 Range/Units 15:18 23:46 06:00 Sodium 137 136 L (137-145) mmol/L Potassium 5.6 H 5.3 H 5.2 H (3.5-5.1) mmol/L Chloride 93 L 95 L (98-107) mmol/L Carbon Dioxide 33 H 34 H (22-30) mmol/L BUN 21 H 40 H (9-20) mg/dL Creatinine 0.83 1.10 (0.66-1.25) mg/dL Glucose 117 H 217 H (74-99) mg/dL Calcium 9.1 8.6 (8.4-10.2) mg/dL Adrenal panel 04/27/25 04/27/25 04/28/25 Range/Units 15:18 23:46 06:00 Sodium 137 136 L (137-145) mmol/L Potassium 5.6 H 5.3 H 5.2 H (3.5-5.1) mmol/L Chloride 93 L 95 L (98-107) mmol/L Carbon Dioxide 33 H 34 H (22-30) mmol/L BUN 21 H 40 H (9-20) mg/dL Creatinine 0.83 1.10 (0.66-1.25) mg/dL Glucose 117 H 217 H (74-99) mg/dL Calcium 9.1 8.6 (8.4-10.2) mg/dL Total Bilirubin 2.8 H 1.1 (0.2-1.3) mg/dL AST 374 H 1110 H (17-59) U/L ALT 321 H 1317 H (4-49) U/L Alkaline Phosphatase 83 86 (38-126) U/L Total Protein 7.3 6.1 L (6.3-8.2) g/dL Albumin 4.7 3.8 (3.5-5.0) g/dL - Imaging Chest x-ray: report reviewed, image reviewed Abdominal x-ray: report reviewed CT scan - chest: report reviewed, image reviewed Assessment and Plan Assessment: Acute cardiopulmonary arrest, briefly resuscitated in the emergency department received a round of epinephrine and CPR with return of spontaneous circulation Acute hypercapnic respiratory failure essentially due to COPD exacerbation. CT of the chest was negative. Left flank hematoma status post TAVR, No interval drop in the hemoglobin levels, CT scan of the abdomen and pelvis showed a stable left flank hematoma Calcified aortic valve with severe symptomatic aortic valve stenosis, NYHA class II History of hypertension Hyperlipidemia Insulin-dependent diabetes Severe COPD with home oxygen use, preoperative FEV1 20% of predicted Peripheral arterial disease Obstructive sleep apnea with home CPAP use Current tobacco dependence Plan: The patient was seen and examined at his bedside in the intensive care unit. His chart and diagnostics reviewed. His case was discussed in detail with Dr. Keesha Young from cardiothoracic surgery. No surgical intervention is warranted at this time from cardiothoracic surgery service. Medical management of other comorbidities per internal medicine, pulmonary/critical care and cardiology services. We will continue to follow the patient on an as needed basis. Please reconsult cardiothoracic surgery if needed. Thank you for this consult. I have personally seen and examined the patient, performed the documentation and the assessment and plan as written. Number of minutes spent on the visit: 30. DELISA Márquez
--- NOTE | 2025-04-28 09:37 | P.CRDCN ---
History of Present Illness Consult date: 04/28/25 Chief complaint: respiratory arrest History of present illness: The patient is a 64-year-old male who follows in the office with Dr. Pablo. Patient underwent TAVR procedure on April 15, 2025 and was discharged. He returned to the emergency room on April 22 with retroperitoneal hematoma, secondary to access site. At that time vital signs and blood work were stable and he was instructed to follow-up in the office. He returned to the emergency room yesterday with increased shortness of breath. Patient had a witnessed respiratory arrest in the emergency room, where he required emergency intubation. According to ER note patient had decreased responsiveness and arrested, therefore CPR was started and 1 round of epinephrine was given. There is no documentation of ventricular arrhythmia. DIAGNOSTICS: EKG shows sinus tachycardia with right bundle branch block Chest x-ray shows small left pleural effusion CTA of the chest shows no evidence for pulmonary emboli CT scan of the brain shows no acute intracranial process CT scan of the abdomen and pelvis shows left flank hematoma, unchanged from previous study on 04/22/2025 Lab data, WBC 19.7, hemoglobin 10.2, hematocrit 33.3, platelet 410, sodium 136, potassium 5.2, BUN 40, creatinine 1.1, AST 1110, ALT 1317, troponin 0.21, proBNP 1030 REVIEW OF SYSTEMS: Sedated on ventilator PHYSICAL EXAMINATION: This is a 64-year-old male in no apparent distress at the time of my examination. HEENT: Head is atraumatic, normocephalic. There is no jugular venous distention. No carotid bruit is heard. CHEST EXAMINATION: Lungs are coarse to auscultation. No chest wall tenderness is noted on palpation or with deep breathing. HEART EXAMINATION: Heart regular rate and rhythm. S1, S2 heard. No murmurs, gallops or rub. ABDOMEN: Soft, nontender. Bowel sounds are heard. No organomegaly noted. Bruising noted across abdomen. EXTREMITIES: +2 lower extremity pitting edema, bilaterally NEUROLOGIC EXAMINATION: Patient is sedated on ventilator FINAL ASSESSMENT AND PLAN: Acute respiratory arrest, followed by brief loss of pulse and 1 round of CPR Mild elevation in troponins, secondary to CPR Acute hypercapnic respiratory failure, secondary to COPD exacerbation Left flank hematoma status post TAVR Advanced COPD Hypertension Hyperlipidemia Type 2 diabetes Peripheral vascular disease Right bundle branch block, present prior to TAVR PLAN: Continue supportive treatment Continue telemetry for advanced heart block after TAVR Echocardiogram and Doppler study Further recommendations to be based on clinical course I am dictating on behalf of Dr Jose Roberto Caba's history/physical and assessme nt/plan. Past Medical History Past Medical History: COPD, Diabetes Mellitus, GERD/Reflux, Hyperlipidemia, Hypertension, Respiratory Disorder, Sleep Apnea/CPAP/BIPAP, Vascular Disorder Additional Past Medical History / Comment(s): aortic valve stenosis,bipap with O2 @ 3L,uses O2 @ 2 L nc prn during the day-Stg 4 COPD-unable to lay flat on back. Chronic back pain, hx of jaw fx 1978, History of Any Multi-Drug Resistant Organisms: None Reported Past Surgical History: Back Surgery, Cardiac Valve Replacement (April 15, 2025), Heart Catheterization, Orthopedic Surgery Additional Past Surgical History / Comment(s): lumbar surgery ; pain procedures, COLONOSCOPY, BRONCHOSCOPY Past Anesthesia/Blood Transfusion Reactions: No Reported Reaction Additional Past Anesthesia/Blood Transfusion Reaction / Comment(s): no hx blood transfusion Past Psychological History: No Psychological Hx Reported Smoking Status: Current every day smoker Past Alcohol Use History: None Reported Additional Past Alcohol Use History / Comment(s): SMOKES 1/2 PPD SINCE AGE 12 Past Drug Use History: None Reported - Past Family History Mother Family Medical History: No Reported History Father Family Medical History: COPD, Coronary Artery Disease (CAD) Additional Family Medical History / Comment(s): CABG. peripheral vascular disease Medications and Allergies Home Medications Medication Instructions Recorded Confirmed Type Simvastatin 80 mg PO HS 08/14/18 04/27/25 History Omeprazole 40 mg PO DAILY 03/14/19 04/27/25 History Albuterol Inhaler [Ventolin Hfa 2 puff INHALATION RT-Q6H PRN 09/01/24 04/27/25 History Inhaler] Insulin Glargine,Hum.rec.anlog 29 units SQ HS 09/01/24 04/27/25 History [Lantus Solostar Pen] SITagliptin [Sitagliptin] 100 mg PO DAILY 09/01/24 04/27/25 History predniSONE 10 mg PO DAILY 09/01/24 04/27/25 History metFORMIN HCL [Glucophage] 1,000 mg PO BID #0 04/16/25 04/27/25 Rx Aspirin EC [Ecotrin Low Dose] 81 mg PO DAILY 04/22/25 04/27/25 History Ipratropium-Albuterol Nebulize 3 ml INHALATION RT-Q6H 04/22/25 04/27/25 History [Duoneb 0.5 mg-3 mg/3 ml Soln] Furosemide [Lasix] 40 mg PO DAILY #7 tablet 04/23/25 04/27/25 Rx Fluticasone Nasal [place] [Flonase 1 spray EA NOSTRIL BID 04/27/25 04/27/25 History Nasal [place]] Ipratropium/Albuter 20-100Mcg 1 puff INHALATION RT-QID 04/27/25 04/27/25 History [Combivent Respimat 20-100Mcg Inhaler] Lisinopril-Hctz 20-25 mg 1 tab PO DAILY 04/27/25 04/27/25 History [Zestoretic 20-25] Mometasone/Formoterol [Dulera 100 2 puff INHALATION RT-BID 04/27/25 04/27/25 History Mcg-5 Mcg Inhaler] Potassium Chloride [Klor-Con M20] 20 meq PO DAILY 04/27/25 04/27/25 History Allergies Allergy/AdvReac Type Severity Reaction Status Date / Time empagliflozin Allergy Itching Verified 04/27/25 16:09 glipizide Allergy increased Verified 04/27/25 16:09 lactic acid bupropion [From Wellbutrin] AdvReac Nausea Verified 04/27/25 16:09 codeine AdvReac Nausea Verified 04/27/25 16:09 gabapentin AdvReac Nausea & Verified 04/27/25 16:09 Vomiting pregabalin AdvReac Nausea Verified 04/27/25 16:09 Physical Exam Vitals: Vital Signs Temp Pulse Resp BP Pulse Ox FiO2 04/28/25 08:27 112 H 04/28/25 08:10 110 H 04/28/25 08:09 110 H 04/28/25 08:00 114 H 30 H 111/72 95 04/28/25 07:58 116 H 04/28/25 07:55 50 04/28/25 07:45 118 H 30 H 96 04/28/25 07:30 118 H 96 04/28/25 07:15 118 H 97 04/28/25 07:00 118 H 20 114/75 96 04/28/25 06:45 120 H 20 114/75 96 04/28/25 06:30 120 H 30 H 114/75 95 04/28/25 06:15 116 H 30 H 114/75 95 04/28/25 06:00 117 H 30 H 108/72 95 04/28/25 05:45 120 H 28 H 108/72 95 04/28/25 05:30 120 H 28 H 108/72 94 L 04/28/25 05:15 120 H 28 H 108/72 94 L 04/28/25 05:00 120 H 28 H 101/72 94 L 04/28/25 04:45 120 H 28 H 101/72 97 04/28/25 04:30 120 H 28 H 101/72 97 04/28/25 04:15 118 H 28 H 101/72 97 04/28/25 04:12 118 H 04/28/25 04:00 99.8 F H 117 H 28 H 107/69 97 50 04/28/25 03:57 117 H 50 04/28/25 03:45 117 H 28 H 107/69 97 04/28/25 03:30 116 H 28 H 107/69 97 04/28/25 03:15 116 H 28 H 107/69 96 04/28/25 03:00 115 H 28 H 97 04/28/25 02:45 115 H 28 H 96 04/28/25 02:30 114 H 28 H 94 L 04/28/25 02:15 114 H 28 H 100/70 95 04/28/25 02:00 113 H 28 H 95 04/28/25 01:45 112 H 28 H 95 04/28/25 01:30 112 H 28 H 95 04/28/25 01:15 111 H 28 H 106/63 97 04/28/25 01:12 98.4 F 111 H 28 H 97 50 04/28/25 00:47 109 H 04/28/25 00:34 107 H 04/28/25 00:30 50 04/28/25 00:00 50 04/27/25 20:15 97.6 F 98 24 83/59 99 100 04/27/25 20:00 88 24 95/61 92 L 04/27/25 19:47 90 04/27/25 19:45 90 24 101/67 100 04/27/25 19:37 92 04/27/25 19:30 90 24 82/57 100 100 04/27/25 19:22 89 100 04/27/25 19:15 97.7 F 98 24 83/55 100 04/27/25 19:00 95 24 96/63 04/27/25 18:20 93 25 H 85/61 100 04/27/25 18:15 92 25 H 93/61 100 04/27/25 18:10 92 23 90/61 100 04/27/25 18:05 92 28 H 91/56 100 04/27/25 18:00 92 24 90/60 100 04/27/25 17:55 92 17 88/61 100 04/27/25 17:50 92 32 H 92/56 100 04/27/25 17:45 92 26 H 92/56 04/27/25 17:40 93 26 H 97/56 04/27/25 17:36 96.9 F L 04/27/25 17:35 92 31 H 92/56 04/27/25 17:30 92 27 H 91/56 04/27/25 17:25 92 31 H 89/53 04/27/25 17:20 92 32 H 83/50 100 04/27/25 17:19 100 04/27/25 17:15 93 26 H 80/52 100 04/27/25 17:10 93 20 108/71 100 04/27/25 17:09 95 29 H 108/71 100 04/27/25 15:53 103 H 21 04/27/25 15:40 107 H 28 H 04/27/25 15:24 105 H 18 184/116 98 04/27/25 15:23 100 04/27/25 15:15 100 Intake and Output 04/27/25 04/28/25 04/28/25 22:59 06:59 14:59 Intake Total 738.893 0775.881 386.212 Output Total 750 455 118 Balance -223.953 712.881 268.212 Intake: IV 400 800 300 Sodium Chloride 0.9% 1, 400 800 300 000 ml @ 100 mls/hr IV . Q10H [facility] [place] Rx#:[id number] Intake, IV Titration 126.047 367.881 86.212 Amount Cisatracurium 200 mg In 36.919 24.643 83.767 Sodium Chloride 0.9% 180 ml @ 1 MCG/KG/MIN 5.416 mls/hr IV .Q24H [facility] Rx#: [id number] Norepinephrine 8 mg In 3.319 72.199 2.445 Sodium Chloride 0.9% 250 ml @ 0.03 MCG/KG/MIN 5.24 mls/hr IV .Q24H [facility] Rx#: [id number] propofoL 1,000 mg In 85.809 271.039 Empty Bag 1 bag @ 15 MCG/ KG/MIN 8.124 mls/hr IV . [id number] [facility] Rx#:[id number] Output: Gastric Drainage 100 Urine 650 455 118 Other: Voiding Method Indwelling Catheter Indwelling Catheter Weight 90.265 kg 93.3 kg ABP, PAP, CO, CI - Last 8 Hours Arterial Blood Pressure 102/64 Arterial Blood Pressure 108/70 Arterial Blood Pressure 106/61 Arterial Blood Pressure 118/67 Arterial Blood Pressure 112/62 Arterial Blood Pressure 111/62 Arterial Blood Pressure 109/61 Arterial Blood Pressure 114/62 Arterial Blood Pressure 118/63 Arterial Blood Pressure 116/63 Arterial Blood Pressure 117/62 Arterial Blood Pressure 105/58 Arterial Blood Pressure 109/61 Arterial Blood Pressure 108/60 Arterial Blood Pressure 102/58 Arterial Blood Pressure 106/60 Arterial Blood Pressure 102/59 Arterial Blood Pressure 103/58 Arterial Blood Pressure 101/57 Arterial Blood Pressure 101/58 Arterial Blood Pressure 104/58 Arterial Blood Pressure 103/57 Arterial Blood Pressure 102/56 Arterial Blood Pressure 104/57 Arterial Blood Pressure 105/58 Arterial Blood Pressure 105/58 Arterial Blood Pressure 109/59 Results 04/28/25 06:00 04/28/25 06:00 Cardiac Enzymes 04/27/25 04/27/25 04/27/25 Range/Units 15:18 15:18 17:47 AST 374 H (17-59) U/L Troponin I 0.107 H* 0.140 H* (0.000-0.034) ng/mL 04/27/25 04/28/25 Range/Units 21:16 06:00 AST 1110 H (17-59) U/L Troponin I 0.214 H* (0.000-0.034) ng/mL Coagulation 04/27/25 Range/Units 15:18 PT 12.5 (10.0-12.5) sec APTT 22.3 (22.0-30.0) sec CBC 04/27/25 04/28/25 Range/Units 15:18 06:00 WBC 18.42 H 19.71 H (4.50-10.00) 10*3/uL RBC 3.95 L 3.57 L (4.40-5.60) 10*6/uL Hgb 11.5 L 10.2 L (13.0-17.0) g/dL Hct 36.9 L 33.3 L (39.6-50.0) % Plt Count 516 H 410 (140-440) 10*3/uL Comprehensive Metabolic Panel 04/27/25 04/27/25 04/28/25 Range/Units 15:18 23:46 06:00 Sodium 137 136 L (137-145) mmol/L Potassium 5.6 H 5.3 H 5.2 H (3.5-5.1) mmol/L Chloride 93 L 95 L (98-107) mmol/L Carbon Dioxide 33 H 34 H (22-30) mmol/L BUN 21 H 40 H (9-20) mg/dL Creatinine 0.83 1.10 (0.66-1.25) mg/dL Glucose 117 H 217 H (74-99) mg/dL Calcium 9.1 8.6 (8.4-10.2) mg/dL AST 374 H 1110 H (17-59) U/L ALT 321 H 1317 H (4-49) U/L Alkaline Phosphatase 83 86 (38-126) U/L Total Protein 7.3 6.1 L (6.3-8.2) g/dL Albumin 4.7 3.8 (3.5-5.0) g/dL Current Medications Generic Name Dose Route Start Last Admin Trade Name Freq PRN Reason Stop Dose Admin Acetaminophen 650 mg 04/27/25 17:31 Acetaminophen Tab 325 Mg Tab PO Q6HR PRN Mild Pain or Fever > 100.5 Albuterol/Ipratropium 3 ml 04/27/25 15:14 Ipratropium-Albuterol 3 Ml Neb INHALATION RT-Q2H PRN Shortness Of Breath Or Wheezing Albuterol/Ipratropium 3 ml 04/27/25 16:00 04/28/25 07:58 Ipratropium-Albuterol 3 Ml Neb INHALATION 3 ml RT-Q4H [facility] Administration Aspirin 81 mg 06/24/25 09:00 04/28/25 08:45 Aspirin 81 Mg PO 81 mg DAILY [facility] Administration Atorvastatin Calcium 40 mg 04/27/25 21:00 04/27/25 23:56 Atorvastatin 40 Mg Tab PO Not Given HS [facility] Budesonide 1 mg 04/27/25 20:00 04/28/25 07:58 Budesonide 1 Mg/2 Ml Nebu INHALATION 1 mg RT-BID [facility] Administration Chlorhexidine Gluconate 15 ml 04/27/25 21:00 04/28/25 08:44 Chlorhexidine Gluconate 15 Ml Cup MUCOUS MEM 15 ml BID [facility] Administration Dextrose/Water 25 ml 04/28/25 09:18 Dextrose 50% Syringe 50 Ml IVP PER PROTOCOL PRN Hypoglycemia Protocol Dextrose/Water 50 ml 04/28/25 09:18 Dextrose 50% Syringe 50 Ml IVP PER PROTOCOL PRN Hypoglycemia Protocol Enoxaparin Sodium 40 mg 04/27/25 21:15 04/28/25 08:42 Enoxaparin 40 Mg/0.4 Ml Syringe SQ 40 mg DAILY [facility] Administration Formoterol Fumarate 20 mcg 04/27/25 20:00 04/28/25 07:58 Formoterol Fumarate 20 Mcg/2 Ml Nebu INHALATION 20 mcg RT-BID [facility] Administration Propofol 1,000 mg/ IV Solution 100 mls @ 8.124 mls/hr 04/27/25 15:30 04/28/25 06:08 IV 50 mcg/kg/min .[id number] [facility] 27.08 mls/hr Administration Protocol 15 MCG/KG/MIN Sodium Chloride 1,000 mls @ 50 mls/hr 04/27/25 17:45 04/28/25 06:07 Saline 0.9% IV 100 mls/hr .Q20H [facility] Administration Cisatracurium Besylate 200 mg/ 200 mls @ 5.416 mls/hr 04/27/25 19:30 04/28/25 09:04 Sodium Chloride IV 1 mcg/kg/min .Q24H [facility] 5.416 mls/hr Titration Protocol 1 MCG/KG/MIN Norepinephrine Bitartrate 8 mg 258 mls @ 5.24 mls/hr 04/27/25 19:30 04/28/25 07:06 / Sodium Chloride IV 0.01 mcg/kg/min .Q24H [facility] 1.747 mls/hr Titration Protocol 0.03 MCG/KG/MIN Ceftriaxone Sodium 1 gm/ 50 mls @ 100 mls/hr 04/28/25 09:30 Sodium Chloride IVPB Q24HR [facility] Protocol Insulin Human Lispro 0 unit 04/28/25 12:00 Insulin Lispro (Humalog) 100 Unit/Ml 10 Ml Vl SQ Q6H [facility] Protocol Lorazepam 1 mg 04/27/25 15:14 04/27/25 15:39 Lorazepam 1 Mg/0.5 Ml Vial IV 1 mg Q1HR PRN Administration Mild Agitation Methylprednisolone Sodium Succinate 60 mg 04/28/25 00:00 04/28/25 06:10 Methylprednisolone Sod Succi 125 Mg/2 Ml Vial IV 60 mg Q6HR [facility] Administration Morphine Sulfate 2 mg 04/27/25 17:31 Morphine Sulfate 2 Mg/Ml Syringe IVP Q4HR PRN Severe Pain (Scale 7 to 10) Naloxone HCl 0.2 mg 04/27/25 17:31 Naloxone 0.4 Mg/Ml 1 Ml Vial IV Q2M PRN Opioid Reversal Ondansetron HCl 4 mg 04/27/25 17:31 Ondansetron 4 Mg/2 Ml Vial IVP Q8HR PRN Nausea And Vomiting Pantoprazole Sodium 40 mg 04/28/25 09:00 04/28/25 08:44 Pantoprazole 40 Mg/10 Ml Vial IV 40 mg DAILY [facility] Administration Intake and Output 04/27/25 04/28/25 04/28/25 22:59 06:59 14:59 Intake Total 592.990 0756.881 386.212 Output Total 750 455 118 Balance -223.953 712.881 268.212 Intake: IV 400 800 300 Sodium Chloride 0.9% 1, 400 800 300 000 ml @ 100 mls/hr IV . Q10H [facility] Rx#:[id number] Intake, IV Titration 126.047 367.881 86.212 Amount Cisatracurium 200 mg In 36.919 24.643 83.767 Sodium Chloride 0.9% 180 ml @ 1 MCG/KG/MIN 5.416 mls/hr IV .Q24H [facility] [place] Rx#: [id number] Norepinephrine 8 mg In 3.319 72.199 2.445 Sodium Chloride 0.9% 250 ml @ 0.03 MCG/KG/MIN 5.24 mls/hr IV .Q24H [facility] Rx#: [id number] propofoL 1,000 mg In 85.809 271.039 Empty Bag 1 bag @ 15 MCG/ KG/MIN 8.124 mls/hr IV . [id number] [facility] Rx#:[id number] Output: Gastric Drainage 100 Urine 650 455 118 Other: Voiding Method Indwelling Catheter Indwelling Catheter Weight 90.265 kg 93.3 kg 04/28/25 06:00 04/28/25 06:00
--- NOTE | 2025-04-28 10:39 | CA ---
Transthoracic Echo Report Name: Aldo Mcguire Age: 64 Gender: M : 1960 Exam Date: 04/28/2025 07:29 Exam Location: [place] [facility] Ht (in): 72 Wt (lb): 199 Ordering Physician: Flora Willadr MD Attending/Referring Phys: Terra Cotta Roofer Crissy Long RDCS Procedure CPT: Indications: Cardiac Arrest Cardiac Hx: Technical Quality: Fair Contrast 1: Total Dose (mL): Contrast 2: Total Dose (mL): MEASUREMENTS (Male / Female) Normal Values 2D ECHO LV Diastolic Diameter PLAX 2.9 cm 4.2 - 5.9 / 3.9 - 5.3 cm LV Systolic Diameter PLAX 1.5 cm IVS Diastolic Thickness 1.1 cm 0.6 - 1.0 / 0.6 - 0.9 cm LVPW Diastolic Thickness 1.1 cm 0.6 - 1.0 / 0.6 - 0.9 cm LV Relative Wall Thickness 0.8 RV Internal Dim ED PLAX 2.9 cm LA Systolic Diameter LX 2.7 cm 3.0 - 4.0 / 2.7 - 3.8 cm LV Diastolic Volume MOD BP 36.9 cm??? 67 - 155 / 56 - 104 cm??? LV Systolic Volume MOD BP 13.1 cm??? 22 - 58 / 19 - 49 cm??? LV Ejection Fraction MOD BP 64.5 % >= 55 % LV Cardiac Index MOD BP 1304.0 cm???/min???m??? LV Diastolic Volume MOD 4C 40.5 cm??? LV Systolic Volume MOD 4C 14.3 cm??? LV Ejection Fraction MOD 4C 64.8 % LV Cardiac Index MOD 4C 1437.7 cm???/min???m??? LV Diastolic Length 4C 6.8 cm LV Systolic Length 4C 5.9 cm LV Diastolic Volume MOD 2C 32.1 cm??? LV Systolic Volume MOD 2C 10.9 cm??? LV Ejection Fraction MOD 2C 66.2 % LV Cardiac Index MOD 2C 1164.6 cm???/min???m??? LV Diastolic Length 2C 6.4 cm LV Systolic Length 2C 5.1 cm LA Volume 41.3 cm??? 18 - 58 / 22 - 52 cm??? LA Volume Index 19.2 cm???/m??? 16 - 28 cm???/m??? DOPPLER TV Peak Velocity 295.4 cm/s TV Peak Gradient 34.9 mmHg Right Atrial Pressure 20.0 mmHg FINDINGS Left Ventricle Left ventricular ejection fraction is estimated at 65-70 %. Mildly increased septal wall thickness. Left ventricular cavity size normal. Hyperdynamic left ventricular systolic function. Right Ventricle Moderate right ventricular dilatation. Moderate to severe pulmonary hypertension. Right ventricular systolic pressure estimated at 55 mmHg. Right Atrium Left Atrium Mitral Valve Aortic Valve Tricuspid Valve Pulmonic Valve Pericardium No pericardial or pleural effusion. Aorta CONCLUSIONS left ventricular size and systolic function is normal perhaps hyperdynamic. Enlarged right ventricle to a moderate extent and moderate to severe pulmonary hypertension no pericardial effusion Previewed by: Dr. Nicolasa Flores MD (Electronically Signed) Final Date: 28 April 2025 10:38
[2025-04-28 11:34] LABS: Glucose,Whole Blood 241 mg/dL (70-110)
--- NOTE | 2025-04-28 11:41 | P.PN ---
Subjective Progress Note Date: 04/28/25 64 year old M with PMH of COPD on 2L home O2, DM, HTN, GERD, HLD presents to the ED for SOB. History is obtained from his at bedside. Patient recently underwent TAVR on 04/15. Surgery was complicated with left flank hematoma. He had been doing well since his surgery. Over the past day, he reported increased shortness of breath not relieved with nebulized treatments. This prompted him to come to the ED. In the ED, he was noted to have agonal breathing and subsequently lost his pulse. MARLEE LOPEZ was called. He underwent high quality chest compressions, received 1 round of Epinephrine and intubated by Dr. Glass. ROSC was achieved. Vitals on arrival: BP 184/116, HR 105, RR 18, 98% on RA. Labs: WBC 18.42, RBC 3.95, Hg 11.5, Hct 36.9, Plt 516. INR 1.2. ABG pH 7, pCO2 > 98. K 5.6, Cl 93, bicarb 33, BUN 21, glu 117, T. Bili 2.8, AST 374, ALT 321. Trop 0.107. BNP 1030. UA neg LE or nitrite. EKG showed sinus tachycardia with RBBB CT brain no acute process CXR small L pleural effusion CTA chest no PE CT AP pending Patient was admitted to ICU for further workup and management. 04/28 Patient was seen and examined. Intubated and sedated. Paralytic includes Nimbex at 1 mcg/kg/min. Sedated with Propofol at 50 mcg/kg/min. On NS at 50 cc/hr. Started on Levophed at 0.01 mcg/kg/min as well. CBC and CMP significant for WBC 19.71, RBC 3.57, Hg 10.2, Hct 33.3, Na 136, K 5.2, Cl 95, bicarb 34, BUN 40, glu 217, AST 1110, ALT 1317, total protein 6.1. ABG pH 7.25, pCO2 77, pO2 83, FiO2 50. Trop 0.14, 0.214. POC glucose 129-236. Sputum Cx GNB. CXR shows bilateral interstitial markings. Echo shows EF 65-70% with mod-severe pulm HTN. CT AP shows stable hematoma. General: non toxic, no distress, Intubated Derm: warm, dry Head: atraumatic, normocephalic, symmetric Eyes: EOMI, no lid lag, anicteric sclera Mouth: no lip lesion, mucus membranes moist Cardiovascular: S1S2 tachy, no murmur Lungs: Decreased BS bilateral, no rhonchi, no rales , no accessory muscle use Ext: no gross muscle atrophy, 3+ LE pitting edema, no contractures Neuro: Intubated Psych: Intubated Based on my assessment of this patient, this patient meets a high complexity level of care. Cardiac arrest likely secondary to COPD exacerbation: Duoneb QID scheduled and PRN SOB/wheezing. Pulmicort 1mg INH BID. Performist 20 mcg INH BID. Solumedrol 60 mg IV Q6H. Pulmonary, Cardiology and CT surgery on board. Acute on chronic hypoxic respiratory failure likely due to above. Left flank hematoma: CT AP shows stable left flank hematoma. Troponin elevation: Likely due to demand ischemia. ASA 81 mg PO QD. Simvastatin 80 mg PO QHS. Echo as above. Cardiology on board. Sepsis versus SIRS likely due to above: Likely reactive. CXR with bilateral interstitial markings. Sputum Cx GNB. Start Zosyn 3.75 g IV TID. Obtain Pro-winsome. Follow BCx + Sputum Cx + Legionella Ag. Hypotension: Levophed to maintain MAP > 65. NS at 50 cc/hr. DM with hyperglycemia: A1c 7.5. Start ISS with Accuchecks ACHS along with hypoglycemic precautions. Normocytic anemia with Thrombocytosis: Likely due to left flank hematoma. Monitor and trend. Hyperkalemia: Mildly elevated. Monitor. Hyperbilirubinemia with Transaminitis: Likely due to hypotension. Trend. CODE STATUS: FULL CODE DVT Prophylaxis: SCD due to hematoma. GI Prophylaxis: Protonix IV Designated medical POA if patient is not able to make medical decisions for themselves: I have reviewed the following commercial sales consultant notes: Cardio, Pulm, CT Sx note. I have reviewed the results of the following tests: As above. I have ordered the following tests: As above. I have discussed the care of this patient with the following independent historian: OLIMPIA. I have independently interpreted the following test below: CXR I have discussed the management of this patient with the following physician: Objective - Vital Signs Vital signs: Vital Signs Temp 99.8 F H 04/28/25 04:00 Pulse 113 H 04/28/25 11:00 Resp 30 H 04/28/25 11:00 BP 109/73 04/28/25 10:15 Pulse Ox 96 04/28/25 11:00 FiO2 50 04/28/25 08:00 Intake & Output 04/27/25 04/28/25 04/28/25 18:59 06:59 18:59 Intake Total 7.005 1686.923 586.212 Output Total 1205 208 Balance 7.005 481.923 378.212 Weight 90.265 kg 93.3 kg Intake: IV 1200 400 Sodium Chloride 0.9% 1, 1200 400 000 ml @ 50 mls/hr IV . Q20H JÚNIOR Rx#:[id number] Intake, IV Titration 7.005 486.923 186.212 Amount Cisatracurium 200 mg In 61.562 83.767 Sodium Chloride 0.9% 180 ml @ 1 MCG/KG/MIN 5.416 mls/hr IV .Q24H JÚNIOR Rx#: [id number] Norepinephrine 8 mg In 75.518 2.445 Sodium Chloride 0.9% 250 ml @ 0.03 MCG/KG/MIN 5.24 mls/hr IV .Q24H JÚNIOR Rx#: [id number] propofoL 1,000 mg In 7.005 349.843 100 Empty Bag 1 bag @ 15 MCG/ KG/MIN 8.124 mls/hr IV . [id number] JÚNIOR Rx#:[id number] Output: Gastric Drainage 100 Urine 1105 208 Other: Voiding Method Indwelling Catheter Indwelling Catheter ABP, PAP, CO, CI - Last Documented Arterial Blood Pressure 108/63 - Labs CBC & Chem 7: 04/28/25 06:00 04/28/25 06:00 Labs: Abnormal Lab Results - Last 24 Hours (Table) 04/27/25 04/27/25 04/27/25 Range/Units 15:18 15:18 15:18 WBC 18.42 H (4.50-10.00) 10*3/uL RBC 3.95 L (4.40-5.60) 10*6/uL Hgb 11.5 L (13.0-17.0) g/dL Hct 36.9 L (39.6-50.0) % MCHC 31.2 L (32.0-37.0) g/dL Plt Count 516 H (140-440) 10*3/uL MPV 8.8 L (9.5-12.2) fL Immature Gran # 0.27 H (0.00-0.04) 10*3/uL Neutrophils # 15.77 H (1.80-7.70) 10*3/uL Lymphocytes # 0.64 L (0.90-5.00) 10*3/uL Monocytes # 1.70 H (0.20-1.00) 10*3/uL Eosinophils # 0.00 L (0.04-0.35) 10*3/uL INR 1.2 H (<1.2) ABG pH (7.35-7.45) ABG pCO2 (35-45) mmHg ABG pO2 (83-108) mmHg ABG HCO3 (21-25) mmol/L ABG Total CO2 (19-24) mmol/L ABG O2 Saturation (94-97) % Hemoglobin (13.0-17.5) gm/dL Sodium (137-145) mmol/L Potassium (3.5-5.1) mmol/L Chloride (98-107) mmol/L Carbon Dioxide (22-30) mmol/L BUN (9-20) mg/dL Glucose (74-99) mg/dL POC Glucose (mg/dL) (70-110) mg/dL Plasma Lactic Acid Paco (0.7-2.0) mmol/L Total Bilirubin (0.2-1.3) mg/dL AST (17-59) U/L ALT (4-49) U/L Troponin I (0.000-0.034) ng/mL Total Protein (6.3-8.2) g/dL Urine Protein 2+ H (Negative) Urine RBC 8 H (0-5) /hpf Urine Bacteria Many H (None) /hpf Hyaline Casts 19 H (0-2) /lpf Urine Mucus Rare H (None) /hpf 04/27/25 04/27/25 04/27/25 Range/Units 15:18 15:18 15:22 WBC (4.50-10.00) 10*3/uL RBC (4.40-5.60) 10*6/uL Hgb (13.0-17.0) g/dL Hct (39.6-50.0) % MCHC (32.0-37.0) g/dL Plt Count (140-440) 10*3/uL MPV (9.5-12.2) fL Immature Gran # (0.00-0.04) 10*3/uL Neutrophils # (1.80-7.70) 10*3/uL Lymphocytes # (0.90-5.00) 10*3/uL Monocytes # (0.20-1.00) 10*3/uL Eosinophils # (0.04-0.35) 10*3/uL INR (<1.2) ABG pH (7.35-7.45) ABG pCO2 (35-45) mmHg ABG pO2 (83-108) mmHg ABG HCO3 (21-25) mmol/L ABG Total CO2 (19-24) mmol/L ABG O2 Saturation (94-97) % Hemoglobin (13.0-17.5) gm/dL Sodium (137-145) mmol/L Potassium 5.6 H (3.5-5.1) mmol/L Chloride 93 L (98-107) mmol/L Carbon Dioxide 33 H (22-30) mmol/L BUN 21 H (9-20) mg/dL Glucose 117 H (74-99) mg/dL POC Glucose (mg/dL) 129 H (70-110) mg/dL Plasma Lactic Acid Paco (0.7-2.0) mmol/L Total Bilirubin 2.8 H (0.2-1.3) mg/dL AST 374 H (17-59) U/L ALT 321 H (4-49) U/L Troponin I 0.107 H* (0.000-0.034) ng/mL Total Protein (6.3-8.2) g/dL Urine Protein (Negative) Urine RBC (0-5) /hpf Urine Bacteria (None) /hpf Hyaline Casts (0-2) /lpf Urine Mucus (None) /hpf 04/27/25 04/27/25 04/27/25 Range/Units 15:58 17:47 17:55 WBC (4.50-10.00) 10*3/uL RBC (4.40-5.60) 10*6/uL Hgb (13.0-17.0) g/dL Hct (39.6-50.0) % MCHC (32.0-37.0) g/dL Plt Count (140-440) 10*3/uL MPV (9.5-12.2) fL Immature Gran # (0.00-0.04) 10*3/uL Neutrophils # (1.80-7.70) 10*3/uL Lymphocytes # (0.90-5.00) 10*3/uL Monocytes # (0.20-1.00) 10*3/uL Eosinophils # (0.04-0.35) 10*3/uL INR (<1.2) ABG pH 7.00 L* (7.35-7.45) ABG pCO2 >98 H* (35-45) mmHg ABG pO2 232 H (83-108) mmHg ABG HCO3 (21-25) mmol/L ABG Total CO2 (19-24) mmol/L ABG O2 Saturation 99.5 H (94-97) % Hemoglobin 10.9 L (13.0-17.5) gm/dL Sodium (137-145) mmol/L Potassium (3.5-5.1) mmol/L Chloride (98-107) mmol/L Carbon Dioxide (22-30) mmol/L BUN (9-20) mg/dL Glucose (74-99) mg/dL POC Glucose (mg/dL) (70-110) mg/dL Plasma Lactic Acid Paco 3.1 H* (0.7-2.0) mmol/L Total Bilirubin (0.2-1.3) mg/dL AST (17-59) U/L ALT (4-49) U/L Troponin I 0.140 H* (0.000-0.034) ng/mL Total Protein (6.3-8.2) g/dL Urine Protein (Negative) Urine RBC (0-5) /hpf Urine Bacteria (None) /hpf Hyaline Casts (0-2) /lpf Urine Mucus (None) /hpf 04/27/25 04/27/25 04/27/25 Range/Units 20:18 21:16 21:16 WBC (4.50-10.00) 10*3/uL RBC (4.40-5.60) 10*6/uL Hgb (13.0-17.0) g/dL Hct (39.6-50.0) % MCHC (32.0-37.0) g/dL Plt Count (140-440) 10*3/uL MPV (9.5-12.2) fL Immature Gran # (0.00-0.04) 10*3/uL Neutrophils # (1.80-7.70) 10*3/uL Lymphocytes # (0.90-5.00) 10*3/uL Monocytes # (0.20-1.00) 10*3/uL Eosinophils # (0.04-0.35) 10*3/uL INR (<1.2) ABG pH (7.35-7.45) ABG pCO2 (35-45) mmHg ABG pO2 (83-108) mmHg ABG HCO3 (21-25) mmol/L ABG Total CO2 (19-24) mmol/L ABG O2 Saturation (94-97) % Hemoglobin (13.0-17.5) gm/dL Sodium (137-145) mmol/L Potassium (3.5-5.1) mmol/L Chloride (98-107) mmol/L Carbon Dioxide (22-30) mmol/L BUN (9-20) mg/dL Glucose (74-99) mg/dL POC Glucose (mg/dL) 153 H (70-110) mg/dL Plasma Lactic Acid Paco 3.9 H* (0.7-2.0) mmol/L Total Bilirubin (0.2-1.3) mg/dL AST (17-59) U/L ALT (4-49) U/L Troponin I 0.214 H* (0.000-0.034) ng/mL Total Protein (6.3-8.2) g/dL Urine Protein (Negative) Urine RBC (0-5) /hpf Urine Bacteria (None) /hpf Hyaline Casts (0-2) /lpf Urine Mucus (None) /hpf 04/27/25 04/28/25 04/28/25 Range/Units 23:46 00:16 01:28 WBC (4.50-10.00) 10*3/uL RBC (4.40-5.60) 10*6/uL Hgb (13.0-17.0) g/dL Hct (39.6-50.0) % MCHC (32.0-37.0) g/dL Plt Count (140-440) 10*3/uL MPV (9.5-12.2) fL Immature Gran # (0.00-0.04) 10*3/uL Neutrophils # (1.80-7.70) 10*3/uL Lymphocytes # (0.90-5.00) 10*3/uL Monocytes # (0.20-1.00) 10*3/uL Eosinophils # (0.04-0.35) 10*3/uL INR (<1.2) ABG pH 7.24 L (7.35-7.45) ABG pCO2 76 H* (35-45) mmHg ABG pO2 76 L (83-108) mmHg ABG HCO3 33 H (21-25) mmol/L ABG Total CO2 35 H (19-24) mmol/L ABG O2 Saturation 92.8 L (94-97) % Hemoglobin 10.5 L (13.0-17.5) gm/dL Sodium (137-145) mmol/L Potassium 5.3 H (3.5-5.1) mmol/L Chloride (98-107) mmol/L Carbon Dioxide (22-30) mmol/L BUN (9-20) mg/dL Glucose (74-99) mg/dL POC Glucose (mg/dL) 208 H (70-110) mg/dL Plasma Lactic Acid Paco (0.7-2.0) mmol/L Total Bilirubin (0.2-1.3) mg/dL AST (17-59) U/L ALT (4-49) U/L Troponin I (0.000-0.034) ng/mL Total Protein (6.3-8.2) g/dL Urine Protein (Negative) Urine RBC (0-5) /hpf Urine Bacteria (None) /hpf Hyaline Casts (0-2) /lpf Urine Mucus (None) /hpf 04/28/25 04/28/25 04/28/25 Range/Units 05:14 06:00 06:00 WBC 19.71 H (4.50-10.00) 10*3/uL RBC 3.57 L (4.40-5.60) 10*6/uL Hgb 10.2 L (13.0-17.0) g/dL Hct 33.3 L (39.6-50.0) % MCHC 30.6 L (32.0-37.0) g/dL Plt Count (140-440) 10*3/uL MPV 8.8 L (9.5-12.2) fL Immature Gran # 0.07 H (0.00-0.04) 10*3/uL Neutrophils # 18.68 H (1.80-7.70) 10*3/uL Lymphocytes # 0.24 L (0.90-5.00) 10*3/uL Monocytes # (0.20-1.00) 10*3/uL Eosinophils # 0.00 L (0.04-0.35) 10*3/uL INR (<1.2) ABG pH 7.25 L (7.35-7.45) ABG pCO2 77 H* (35-45) mmHg ABG pO2 (83-108) mmHg ABG HCO3 33 H (21-25) mmol/L ABG Total CO2 36 H (19-24) mmol/L ABG O2 Saturation (94-97) % Hemoglobin 10.6 L (13.0-17.5) gm/dL Sodium 136 L (137-145) mmol/L Potassium 5.2 H (3.5-5.1) mmol/L Chloride 95 L (98-107) mmol/L Carbon Dioxide 34 H (22-30) mmol/L BUN 40 H (9-20) mg/dL Glucose 217 H (74-99) mg/dL POC Glucose (mg/dL) (70-110) mg/dL Plasma Lactic Acid Paco (0.7-2.0) mmol/L Total Bilirubin (0.2-1.3) mg/dL AST 1110 H (17-59) U/L ALT 1317 H (4-49) U/L Troponin I (0.000-0.034) ng/mL Total Protein 6.1 L (6.3-8.2) g/dL Urine Protein (Negative) Urine RBC (0-5) /hpf Urine Bacteria (None) /hpf Hyaline Casts (0-2) /lpf Urine Mucus (None) /hpf // Range/Units 07:07 WBC (4.50-10.00) 10*3/uL RBC (4.40-5.60) 10*6/uL Hgb (13.0-17.0) g/dL Hct (39.6-50.0) % MCHC (32.0-37.0) g/dL Plt Count (140-440) 10*3/uL MPV (9.5-12.2) fL Immature Gran # (0.00-0.04) 10*3/uL Neutrophils # (1.80-7.70) 10*3/uL Lymphocytes # (0.90-5.00) 10*3/uL Monocytes # (0.20-1.00) 10*3/uL Eosinophils # (0.04-0.35) 10*3/uL INR (<1.2) ABG pH (7.35-7.45) ABG pCO2 (35-45) mmHg ABG pO2 (83-108) mmHg ABG HCO3 (21-25) mmol/L ABG Total CO2 (19-24) mmol/L ABG O2 Saturation (94-97) % Hemoglobin (13.0-17.5) gm/dL Sodium (137-145) mmol/L Potassium (3.5-5.1) mmol/L Chloride (98-107) mmol/L Carbon Dioxide (22-30) mmol/L BUN (9-20) mg/dL Glucose (74-99) mg/dL POC Glucose (mg/dL) 236 H (70-110) mg/dL Plasma Lactic Acid Paco (0.7-2.0) mmol/L Total Bilirubin (0.2-1.3) mg/dL AST (17-59) U/L ALT (4-49) U/L Troponin I (0.000-0.034) ng/mL Total Protein (6.3-8.2) g/dL Urine Protein (Negative) Urine RBC (0-5) /hpf Urine Bacteria (None) /hpf Hyaline Casts (0-2) /lpf Urine Mucus (None) /hpf Microbiology - Last 24 Hours (Table) 04/27/25 15:41 Gram Stain - Preliminary Sputum Sputum Culture - Preliminary Gram Neg Bacilli
[2025-04-28] MEDS: INSULIN LISPRO (HumaLOG) 100 UNIT/ML 10 mL VL SQ SCH (11:57)
[2025-04-28] MEDS: PIPERACILLIN-TAZOBACTAM 3.375 GM in SODIUM CHLORIDE 0.9% 100 ML IVPB SCH (12:01)
--- NOTE | 2025-04-28 16:34 | P.PN ---
Subjective Progress Note Date: 04/28/25 A 64-year-old male patient presented to the emergency department with acute respiratory failure. The patient was unresponsive and in respiratory arrest. CPR was immediately initiated. The patient was given a round of epinephrine and CPR and the patient was intubated in the emergency department. He had return of spontaneous circulation. I reviewed the initial EKG post resuscitation and the patient was in normal sinus rhythm with a right bundle branch block pattern. The initial rhythm at the time of his cardiac arrest is not known. Nevertheless, I suspect that the patient had an acute hypoxic/hypercapnic respiratory failure as the patient postintubation was actively bronchospastic and wheezy. I saw the patient immediately post intubation and the patient had very limited air entry bilaterally, active bronchospastic and wheezy and while being on the mechanical ventilator, the patient's peak airway pressure was 50 and the blood gas showed a pH of 7.0 with a PCO2 more than 98 and a pO2 of 232 and this was done at that appointment for 50, rate of 20, FiO2 100% with a PEEP of 5. The chest x-ray was reviewed and it showed a small left-sided pleural effusion. The patient underwent a CT of the chest and a CAT scan of the abdomen. CT of the chest showed no evidence of any pulmonary embolism and the patient had no filling defects. No mediastinal lymphadenopathy or any other acute cardiopulmonary abnormalities. Lungs were essentially clear. CAT scan of the abdomen and pelvis showed left flank hematoma present since 04/22/2025 and this occurred following a TAVR procedure. The patient had a low-density lesion along the left lateral hemipelvis with some mild stranding measuring 7.7 x 4.5 x 13.4 cm in size, likely presenting an intramuscular seroma without any free fluid in the pelvis. Findings were essentially similar compared to the earlier CAT scan on 04/22/2025. No other abnormalities noted. CAT scan of the brain showed no acute intracranial abnormalities. Blood work showed a white cell count of 18.4 with a hemoglobin 9.5 and a platelet count of 516. Normal coagulation profile. K levels of 5.6, bicarb is at 33 with a BUN of 21 and creatinine 0.8. Lactic acid level was at 3.1. Troponins were 0.1 and 0.1 respectively x 2 with a proBNP level of 1000. BUN is 21 with a creatinine of 0.8 and UA was also noted with 4 WBCs. Based on his ongoing hypoxic respiratory failure, high airway pressures and severe bronchospasm wheezing, the patient was started on DuoNeb nebulizer treatments [id number], IV Solu-Medrol and patient was kept on propofol and the patient was also started on paralytics with Nimbex. IV fluids are currently running at the rate of 100 cc of normal saline and the patient is also on low- dose norepinephrine for hemodynamic support. 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 04/28/2025, the patient is being seen for a follow-up. The patient remains intubated on a mechanical ventilator. This morning, the patient sedated with propofol running at 50 mcg/kg/min and Nimbex at 1 mcg/kg/min. Is adequately sedated and paralyzed. He remains on mechanical ventilator, assist-control mode at rate of 30, tidal volume of 400, FiO2 50% with a PEEP of 5. Peak airway pressure is 33. The blood gas showed a pH of 7.24 with a PCO2 of 76 and PO2 of 82. Chest x-ray shows no acute abnormalities. Orotracheal tube was pushed in and it seems to be in satisfactory position. He has some interstitial opacities bilaterally along with background COPD. NG tube is not clearly seen. The patient is on normal saline at rate of 100 cc an hour. Urine output is in order of 40 cc an hour. Fluid balance is +712 cc over the past 24 hours. He is on low-dose norepinephrine running at 0.01 mcg/kg/min. The patient has been COPD and the patient is oxygen dependent and steroid-dependent outpatient basis the patient has been taking 50 mg of prednisone on an outpatient basis. WBC count is at 19 with a hemoglobin 10.2 and a platelet count of 410. Sodium is at 136, potassium is at 5.2, bicarb is at 34, BUN is 40 with a creatinine of 1.1. LFTs are abnormal with an AST of 1110 [place] [address] and a normal alkaline phosphatase. Blood sugar slightly elevated due to steroid use and the patient is on insulin sliding scale coverage. The patient is also on empiric antibiotic coverage with IV Zosyn. The left flank and abdominal hematoma remains unchanged. Objective - Vital Signs Vital signs: Vital Signs Temp 99.8 F H 04/28/25 04:00 Pulse 112 H 04/28/25 08:27 Resp 30 H 04/28/25 08:00 BP 111/72 04/28/25 08:00 Pulse Ox 95 04/28/25 08:00 FiO2 50 04/28/25 07:55 Intake & Output 04/27/25 04/28/25 04/28/25 18:59 06:59 18:59 Intake Total 7.005 1686.923 386.212 Output Total 1205 118 Balance 7.005 481.923 268.212 Weight 90.265 kg 93.3 kg Intake: IV 1200 300 Sodium Chloride 0.9% 1, 1200 300 000 ml @ 100 mls/hr IV . Q10H JÚNIOR Rx#:[id number] Intake, IV Titration 7.005 486.923 86.212 Amount Cisatracurium 200 mg In 61.562 83.767 Sodium Chloride 0.9% 180 ml @ 1 MCG/KG/MIN 5.416 mls/hr IV .Q24H JÚNIOR Rx#: [id number] Norepinephrine 8 mg In 75.518 2.445 Sodium Chloride 0.9% 250 ml @ 0.03 MCG/KG/MIN 5.24 mls/hr IV .Q24H JÚNIOR Rx#: [id number] propofoL 1,000 mg In 7.005 349.843 Empty Bag 1 bag @ 15 MCG/ KG/MIN 8.124 mls/hr IV . [id number] JÚNIOR Rx#:[id number] Output: Gastric Drainage 100 Urine 1105 118 Other: Voiding Method Indwelling Catheter ABP, PAP, CO, CI - Last Documented Arterial Blood Pressure 102/64 - Exam The patient appeared well nourished and normally developed. Vital signs as documented. The patient is currently intubated on mechanical ventilator. Orotracheal and gastric tube are both in place. Head exam is unremarkable. No scleral icterus or corneal arcus noted. Neck is without jugular venous distension, thyromegaly, or carotid bruits. Carotid upstrokes are brisk bilaterally. Lungs show mild diminished breath sounds bilaterally, air entry is quite limited and the patient has prolongation of isolation phase of breathing and ongoing bronchospasm wheezing. Cardiac exam reveals the PMI to be normally sized and situated. Rhythm is regular. First and second heart sounds normal. No murmurs, rubs or gallops. Abdominal exam reveals normal bowel sounds, no masses, no organomegaly and no aortic enlargement. Lower abdominal hematoma extending to left flank Extremities are nonedematous and both femoral and pedal pulses are diminished bilaterally Examination of the skin revealed no evidence of significant rashes, suspicious appearing nevi or other concerning lesions. Neurologically, the patient is sedated and paralyzed. - Labs CBC & Chem 7: 04/28/25 06:00 04/28/25 06:00 Labs: Abnormal Lab Results - Last 24 Hours (Table) 04/27/25 04/27/25 04/27/25 Range/Units 15:18 15:18 15:18 WBC 18.42 H (4.50-10.00) 10*3/uL RBC 3.95 L (4.40-5.60) 10*6/uL Hgb 11.5 L (13.0-17.0) g/dL Hct 36.9 L (39.6-50.0) % MCHC 31.2 L (32.0-37.0) g/dL Plt Count 516 H (140-440) 10*3/uL MPV 8.8 L (9.5-12.2) fL Immature Gran # 0.27 H (0.00-0.04) 10*3/uL Neutrophils # 15.77 H (1.80-7.70) 10*3/uL Lymphocytes # 0.64 L (0.90-5.00) 10*3/uL Monocytes # 1.70 H (0.20-1.00) 10*3/uL Eosinophils # 0.00 L (0.04-0.35) 10*3/uL INR 1.2 H (<1.2) ABG pH (7.35-7.45) ABG pCO2 (35-45) mmHg ABG pO2 (83-108) mmHg ABG HCO3 (21-25) mmol/L ABG Total CO2 (19-24) mmol/L ABG O2 Saturation (94-97) % Hemoglobin (13.0-17.5) gm/dL Sodium (137-145) mmol/L Potassium (3.5-5.1) mmol/L Chloride (98-107) mmol/L Carbon Dioxide (22-30) mmol/L BUN (9-20) mg/dL Glucose (74-99) mg/dL POC Glucose (mg/dL) (70-110) mg/dL Plasma Lactic Acid Paco (0.7-2.0) mmol/L Total Bilirubin (0.2-1.3) mg/dL AST (17-59) U/L ALT (4-49) U/L Troponin I (0.000-0.034) ng/mL Total Protein (6.3-8.2) g/dL Urine Protein 2+ H (Negative) Urine RBC 8 H (0-5) /hpf Urine Bacteria Many H (None) /hpf Hyaline Casts 19 H (0-2) /lpf Urine Mucus Rare H (None) /hpf 04/27/25 04/27/25 04/27/25 Range/Units 15:18 15:18 15:22 WBC (4.50-10.00) 10*3/uL RBC (4.40-5.60) 10*6/uL Hgb (13.0-17.0) g/dL Hct (39.6-50.0) % MCHC (32.0-37.0) g/dL Plt Count (140-440) 10*3/uL MPV (9.5-12.2) fL Immature Gran # (0.00-0.04) 10*3/uL Neutrophils # (1.80-7.70) 10*3/uL Lymphocytes # (0.90-5.00) 10*3/uL Monocytes # (0.20-1.00) 10*3/uL Eosinophils # (0.04-0.35) 10*3/uL INR (<1.2) ABG pH (7.35-7.45) ABG pCO2 (35-45) mmHg ABG pO2 (83-108) mmHg ABG HCO3 (21-25) mmol/L ABG Total CO2 (19-24) mmol/L ABG O2 Saturation (94-97) % Hemoglobin (13.0-17.5) gm/dL Sodium (137-145) mmol/L Potassium 5.6 H (3.5-5.1) mmol/L Chloride 93 L (98-107) mmol/L Carbon Dioxide 33 H (22-30) mmol/L BUN 21 H (9-20) mg/dL Glucose 117 H (74-99) mg/dL POC Glucose (mg/dL) 129 H (70-110) mg/dL Plasma Lactic Acid Paco (0.7-2.0) mmol/L Total Bilirubin 2.8 H (0.2-1.3) mg/dL AST 374 H (17-59) U/L ALT 321 H (4-49) U/L Troponin I 0.107 H* (0.000-0.034) ng/mL Total Protein (6.3-8.2) g/dL Urine Protein (Negative) Urine RBC (0-5) /hpf Urine Bacteria (None) /hpf Hyaline Casts (0-2) /lpf Urine Mucus (None) /hpf 04/27/25 04/27/25 04/27/25 Range/Units 15:58 17:47 17:55 WBC (4.50-10.00) 10*3/uL RBC (4.40-5.60) 10*6/uL Hgb (13.0-17.0) g/dL Hct (39.6-50.0) % MCHC (32.0-37.0) g/dL Plt Count (140-440) 10*3/uL MPV (9.5-12.2) fL Immature Gran # (0.00-0.04) 10*3/uL Neutrophils # (1.80-7.70) 10*3/uL Lymphocytes # (0.90-5.00) 10*3/uL Monocytes # (0.20-1.00) 10*3/uL Eosinophils # (0.04-0.35) 10*3/uL INR (<1.2) ABG pH 7.00 L* (7.35-7.45) ABG pCO2 >98 H* (35-45) mmHg ABG pO2 232 H (83-108) mmHg ABG HCO3 (21-25) mmol/L ABG Total CO2 (19-24) mmol/L ABG O2 Saturation 99.5 H (94-97) % Hemoglobin 10.9 L (13.0-17.5) gm/dL Sodium (137-145) mmol/L Potassium (3.5-5.1) mmol/L Chloride (98-107) mmol/L Carbon Dioxide (22-30) mmol/L BUN (9-20) mg/dL Glucose (74-99) mg/dL POC Glucose (mg/dL) (70-110) mg/dL Plasma Lactic Acid Paco 3.1 H* (0.7-2.0) mmol/L Total Bilirubin (0.2-1.3) mg/dL AST (17-59) U/L ALT (4-49) U/L Troponin I 0.140 H* (0.000-0.034) ng/mL Total Protein (6.3-8.2) g/dL Urine Protein (Negative) Urine RBC (0-5) /hpf Urine Bacteria (None) /hpf Hyaline Casts (0-2) /lpf Urine Mucus (None) /hpf 04/27/25 04/27/25 04/27/25 Range/Units 20:18 21:16 21:16 WBC (4.50-10.00) 10*3/uL RBC (4.40-5.60) 10*6/uL Hgb (13.0-17.0) g/dL Hct (39.6-50.0) % MCHC (32.0-37.0) g/dL Plt Count (140-440) 10*3/uL MPV (9.5-12.2) fL Immature Gran # (0.00-0.04) 10*3/uL Neutrophils # (1.80-7.70) 10*3/uL Lymphocytes # (0.90-5.00) 10*3/uL Monocytes # (0.20-1.00) 10*3/uL Eosinophils # (0.04-0.35) 10*3/uL INR (<1.2) ABG pH (7.35-7.45) ABG pCO2 (35-45) mmHg ABG pO2 (83-108) mmHg ABG HCO3 (21-25) mmol/L ABG Total CO2 (19-24) mmol/L ABG O2 Saturation (94-97) % Hemoglobin (13.0-17.5) gm/dL Sodium (137-145) mmol/L Potassium (3.5-5.1) mmol/L Chloride (98-107) mmol/L Carbon Dioxide (22-30) mmol/L BUN (9-20) mg/dL Glucose (74-99) mg/dL POC Glucose (mg/dL) 153 H (70-110) mg/dL Plasma Lactic Acid Paco 3.9 H* (0.7-2.0) mmol/L Total Bilirubin (0.2-1.3) mg/dL AST (17-59) U/L ALT (4-49) U/L Troponin I 0.214 H* (0.000-0.034) ng/mL Total Protein (6.3-8.2) g/dL Urine Protein (Negative) Urine RBC (0-5) /hpf Urine Bacteria (None) /hpf Hyaline Casts (0-2) /lpf Urine Mucus (None) /hpf 04/27/25 04/28/25 04/28/25 Range/Units 23:46 00:16 01:28 WBC (4.50-10.00) 10*3/uL RBC (4.40-5.60) 10*6/uL Hgb (13.0-17.0) g/dL Hct (39.6-50.0) % MCHC (32.0-37.0) g/dL Plt Count (140-440) 10*3/uL MPV (9.5-12.2) fL Immature Gran # (0.00-0.04) 10*3/uL Neutrophils # (1.80-7.70) 10*3/uL Lymphocytes # (0.90-5.00) 10*3/uL Monocytes # (0.20-1.00) 10*3/uL Eosinophils # (0.04-0.35) 10*3/uL INR (<1.2) ABG pH 7.24 L (7.35-7.45) ABG pCO2 76 H* (35-45) mmHg ABG pO2 76 L (83-108) mmHg ABG HCO3 33 H (21-25) mmol/L ABG Total CO2 35 H (19-24) mmol/L ABG O2 Saturation 92.8 L (94-97) % Hemoglobin 10.5 L (13.0-17.5) gm/dL Sodium (137-145) mmol/L Potassium 5.3 H (3.5-5.1) mmol/L Chloride (98-107) mmol/L Carbon Dioxide (22-30) mmol/L BUN (9-20) mg/dL Glucose (74-99) mg/dL POC Glucose (mg/dL) 208 H (70-110) mg/dL Plasma Lactic Acid Paco (0.7-2.0) mmol/L Total Bilirubin (0.2-1.3) mg/dL AST (17-59) U/L ALT (4-49) U/L Troponin I (0.000-0.034) ng/mL Total Protein (6.3-8.2) g/dL Urine Protein (Negative) Urine RBC (0-5) /hpf Urine Bacteria (None) /hpf Hyaline Casts (0-2) /lpf Urine Mucus (None) /hpf 04/28/25 04/28/25 04/28/25 Range/Units 05:14 06:00 06:00 WBC 19.71 H (4.50-10.00) 10*3/uL RBC 3.57 L (4.40-5.60) 10*6/uL Hgb 10.2 L (13.0-17.0) g/dL Hct 33.3 L (39.6-50.0) % MCHC 30.6 L (32.0-37.0) g/dL Plt Count (140-440) 10*3/uL MPV 8.8 L (9.5-12.2) fL Immature Gran # 0.07 H (0.00-0.04) 10*3/uL Neutrophils # 18.68 H (1.80-7.70) 10*3/uL Lymphocytes # 0.24 L (0.90-5.00) 10*3/uL Monocytes # (0.20-1.00) 10*3/uL Eosinophils # 0.00 L (0.04-0.35) 10*3/uL INR (<1.2) ABG pH 7.25 L (7.35-7.45) ABG pCO2 77 H* (35-45) mmHg ABG pO2 (83-108) mmHg ABG HCO3 33 H (21-25) mmol/L ABG Total CO2 36 H (19-24) mmol/L ABG O2 Saturation (94-97) % Hemoglobin 10.6 L (13.0-17.5) gm/dL Sodium 136 L (137-145) mmol/L Potassium 5.2 H (3.5-5.1) mmol/L Chloride 95 L (98-107) mmol/L Carbon Dioxide 34 H (22-30) mmol/L BUN 40 H (9-20) mg/dL Glucose 217 H (74-99) mg/dL POC Glucose (mg/dL) (70-110) mg/dL Plasma Lactic Acid Paco (0.7-2.0) mmol/L Total Bilirubin (0.2-1.3) mg/dL AST 1110 H (17-59) U/L ALT 1317 H (4-49) U/L Troponin I (0.000-0.034) ng/mL Total Protein 6.1 L (6.3-8.2) g/dL Urine Protein (Negative) Urine RBC (0-5) /hpf Urine Bacteria (None) /hpf Hyaline Casts (0-2) /lpf Urine Mucus (None) /hpf 06/24/25 Range/Units 07:07 WBC (4.50-10.00) 10*3/uL RBC (4.40-5.60) 10*6/uL Hgb (13.0-17.0) g/dL Hct (39.6-50.0) % MCHC (32.0-37.0) g/dL Plt Count (140-440) 10*3/uL MPV (9.5-12.2) fL Immature Gran # (0.00-0.04) 10*3/uL Neutrophils # (1.80-7.70) 10*3/uL Lymphocytes # (0.90-5.00) 10*3/uL Monocytes # (0.20-1.00) 10*3/uL Eosinophils # (0.04-0.35) 10*3/uL INR (<1.2) ABG pH (7.35-7.45) ABG pCO2 (35-45) mmHg ABG pO2 (83-108) mmHg ABG HCO3 (21-25) mmol/L ABG Total CO2 (19-24) mmol/L ABG O2 Saturation (94-97) % Hemoglobin (13.0-17.5) gm/dL Sodium (137-145) mmol/L Potassium (3.5-5.1) mmol/L Chloride (98-107) mmol/L Carbon Dioxide (22-30) mmol/L BUN (9-20) mg/dL Glucose (74-99) mg/dL POC Glucose (mg/dL) 236 H (70-110) mg/dL Plasma Lactic Acid Paco (0.7-2.0) mmol/L Total Bilirubin (0.2-1.3) mg/dL AST (17-59) U/L ALT (4-49) U/L Troponin I (0.000-0.034) ng/mL Total Protein (6.3-8.2) g/dL Urine Protein (Negative) Urine RBC (0-5) /hpf Urine Bacteria (None) /hpf Hyaline Casts (0-2) /lpf Urine Mucus (None) /hpf Microbiology - Last 24 Hours (Table) 04/27/25 15:41 Gram Stain - Preliminary Sputum Assessment and Plan Plan: Acute cardiopulmonary arrest although we suspect that this is most likely pulmonary arrest followed by cardiac arrest and the patient was briefly resuscitated in the emergency department received a round of epinephrine and CPR with return of spontaneous circulation. The patient is intubated and subsequently the patient was found to be in acute hypercapnic respiratory failure. There is interval improvement in acid-base status. The peak of her pressure has dropped as the patient is currently on a combination of broncho dilators, steroids and empiric antibiotic coverage with IV Zosyn. Acute hypercapnic respiratory failure essentially due to COPD exacerbation. CT of the chest was negative. CT scan of the abdomen and pelvis showed a stable left flank hematoma. Left flank hematoma status post TAVR Hemodynamically stable. No interval drop in the hemoglobin levels, on examination, the hematoma remains unchanged and stable Advanced COPD with chronic hypoxic respiratory failure, O2 dependent with severe obstructive limitation. The patient has been prednisone dependent 15 mg of prednisone on daily basis in addition to oxygen and he continues to smoke on and off on outpatient basis according to the family. Obstructive sleep apnea, maintained on CPAP therapy on outpatient basis Lactic acidosis Mild troponin leak, likely type II myocardial ischemia post cardiopulmonary arrest Left flank hematoma post TAVR Symptomatic severe aortic stenosis post TAVR on 04/15/2025 PAD with history of left femoral artery occlusion Hypertension Hyperlipidemia Type 2 diabetes mellitus Plan Keep the patient intubated on a mechanical ventilator. No changes on the mechanical ventilator to be done today. Keep the patient sedated and paralyzed for today. DuoNeb nebulizer treatments [id number] Perforomist and Pulmicort nebulized treatments twice a day IV Solu-Medrol 60 mg every 6 hours Utilize norepinephrine if needed to maintain mean atrial pressure above 65 IV Protonix Normal saline rate of 50 cc an hour Heparin subcu Lovenox 40 mg subcu for DVT prophylaxis echocardiogram from 04/16/2025 showed normal LV, TAVR noted with a mean gradient of 15 mmHg Monitor blood gases Monitor hemoglobin Monitor left flank hematoma Critical care evaluation This evaluation was done and 35 minutes. Had a like discussion with the family and updated the family on his condition. Time with Patient: Greater than 30
[2025-04-28 17:52] LABS: Glucose,Whole Blood 273 mg/dL (70-110)
[2025-04-28] MEDS: ARTIFICIAL TEARS-HYPROMELLOSE DROPS 15 ML BTL BOTH EYES SCH (20:36)
[2025-04-28 23:12] LABS: Glucose,Whole Blood 303 mg/dL (70-110)
[2025-04-29 04:20] LABS: HCT 32.0 % (39.6-50.0); HGB 9.8 g/dL (13.0-17.0); MCH 28.2 pg (27.0-32.0); MCHC 30.6 g/dL (32.0-37.0); MCV 92.2 fL (80.0-97.0); Platelet Count 395 10*3/uL (140-440); RBC 3.47 10*6/uL (4.40-5.60); RDW 15.7 % (11.5-14.5); WBC 16.65 10*3/uL (4.50-10.00)
[2025-04-29 04:26] LABS: AST 412 U/L (17-59); African American GFR (CKD) 83 (>60 ml/min/1.73 sqM); Albumin 3.3 g/dL (3.5-5.0); Alkaline Phosphatase 89 U/L (38-126); Anion Gap 5 mmol/L; Blood Urea Nitrogen 60 mg/dL (9-20); Calcium 8.7 mg/dL (8.4-10.2); Carbon Dioxide 37 mmol/L (22-30); Chloride 93 mmol/L (98-107); Glucose 306 mg/dL (74-99); Non-African American GFR(CKD) 71 (>60 ml/min/1.73 sqM); Potassium 5.1 mmol/L (3.5-5.1); Sodium 135 mmol/L (137-145); Total Protein 5.7 g/dL (6.3-8.2)
[2025-04-29 04:32] LABS: ABG HCO3 36 mmol/L (21-25); ABG PH 7.29 (7.35-7.45); ABG PO2 96 mmHg (83-108); ABG TCO2 38 mmol/L (19-24)
[2025-04-29 04:35] LABS: ABG PCO2 75 mmHg (35-45); Allen Test Performed? no
[2025-04-29 04:36] LABS: ALT 1091 U/L (4-49)
[2025-04-29 06:07] LABS: Glucose,Whole Blood 354 mg/dL (70-110)
--- NOTE | 2025-04-29 08:16 | XR ---
EXAMINATION TYPE: XR chest 1V portable DATE OF EXAM: 04/29/2025 6:01 AM COMPARISON: 04/28/2025 CLINICAL INDICATION: Male, 64 years old with history of Tube placement, , FINDINGS: Heart normal size. Aorta and pulmonary vasculature within normal limits. ET tube satisfactory. Lower chest is underpenetrated and the distal aspect of the NG tube is not well-seen. 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 Endovascular aortic valve replacement noted. Hyperinflation. Increased interstitial densi ties, slightly improved from prior. IMPRESSION: 1. Distal aspect of the NG tube is not well-seen due to underpenetration. 2. COPD. 3. Interstitial densities persist but are improving. [facility], , 04/29/2025 8:14 AM
[2025-04-29] MEDS: MORPHINE SULFATE 2 MG/ML SYRINGE IVP PRN (09:03)
--- NOTE | 2025-04-29 11:18 | P.PN ---
Subjective Progress Note Date: 04/29/25 64 year old M with PMH of COPD on 2L home O2, DM, HTN, GERD, HLD presents to the ED for SOB. History is obtained from his at bedside. Patient recently underwent TAVR on 04/15. Surgery was complicated with left flank hematoma. He had been doing well since his surgery. Over the past day, he reported increased shortness of breath not relieved with nebulized treatments. This prompted him to come to the ED. In the ED, he was noted to have agonal breathing and subsequently lost his pulse. MARLEE LOPEZ was called. He underwent high quality chest compressions, received 1 round of Epinephrine and intubated by Dr. Glass. ROSC was achieved. Vitals on arrival: BP 184/116, HR 105, RR 18, 98% on RA. Labs: WBC 18.42, RBC 3.95, Hg 11.5, Hct 36.9, Plt 516. INR 1.2. ABG pH 7, pCO2 > 98. K 5.6, Cl 93, bicarb 33, BUN 21, glu 117, T. Bili 2.8, AST 374, ALT 321. Trop 0.107. BNP 1030. UA neg LE or nitrite. EKG showed sinus tachycardia with RBBB CT brain no acute process CXR small L pleural effusion CTA chest no PE CT AP pending Patient was admitted to ICU for further workup and management. 04/28 Patient was seen and examined. Intubated and sedated. Paralytic includes Nimbex at 1 mcg/kg/min. Sedated with Propofol at 50 mcg/kg/min. On NS at 50 cc/hr. Started on Levophed at 0.01 mcg/kg/min as well. CBC and CMP significant for WBC 19.71, RBC 3.57, Hg 10.2, Hct 33.3, Na 136, K 5.2, Cl 95, bicarb 34, BUN 40, glu 217, AST 1110, ALT 1317, total protein 6.1. ABG pH 7.25, pCO2 77, pO2 83, FiO2 50. Trop 0.14, 0.214. POC glucose 129-236. Sputum Cx GNB. CXR shows bilateral interstitial markings. Echo shows EF 65-70% with mod-severe pulm HTN. CT AP shows stable hematoma. 04/29 Patient was seen and examined. Intubated and sedated. Off Nimbex and Levophed. Sedated with Propofol at 50 mcg/kg/min. On NS at 10 cc/hr. Antibiotics include Zosyn 3.75g IV TID (D2). CBC and CMP significant for WBC 16.65, RBC 3.47, Hg 9.8, Hct 32, Na 135, Cl 93, bicarb 37, BUN 60, glu 306, AST 412, ALT 1091, alb 3.3. ABG pH 7.29, pCO2 75, pO2 96, FiO2 50. Procal 0.97. POC glucose 236-354 over the past 24H. Sputum Cx Proteus and H. influenzae. CXR shows bilateral interstitial markings. General: non toxic, no distress, Intubated Derm: warm, dry Head: atraumatic, normocephalic, symmetric Eyes: EOMI, no lid lag, anicteric sclera Mouth: no lip lesion, mucus membranes moist Cardiovascular: S1S2 tachy, no murmur Lungs: Decreased BS bilateral, no rhonchi, no rales , no accessory muscle use Ext: no gross muscle atrophy, 3+ LE pitting edema, no contractures Neuro: Intubated Psych: Intubated Based on my assessment of this patient, this patient meets a high complexity level of care. Cardiac arrest likely secondary to COPD exacerbation: Duoneb QID scheduled and PRN SOB/wheezing. Pulmicort 1mg INH BID. Performist 20 mcg INH BID. Solumedrol 60 mg IV Q6H. Pulmonary, Cardiology and CT surgery on board. Acute on chronic hypoxic respiratory failure likely due to above. Left flank hematoma: CT AP shows stable left flank hematoma. Troponin elevation: Likely due to demand ischemia. ASA 81 mg PO QD. Simvastatin 80 mg PO QHS. Echo as above. Cardiology on board. Sepsis secondary to PNA: CXR with bilateral interstitial markings. Sputum Cx Proteus and H. influenzae. Procal 0.97. Stop Zosyn and start Rocephin 2g IV QD. Follow BCx + Sputum Cx + Legionella Ag. DM with hyperglycemia: A1c 7.5. Increase EDWARD to MISS with Accuchecks ACHS along with hypoglycemic precautions. Normocytic anemia with Thrombocytosis: Likely due to left flank hematoma. Monitor and trend. Hyperbilirubinemia with Transaminitis: Likely due to hypotension. Improving. Trend. Resolved: Hypotension, HyperK CODE STATUS: FULL CODE DVT Prophylaxis: SCD due to hematoma. GI Prophylaxis: Protonix IV Designated medical POA if patient is not able to make medical decisions for themselves: I have reviewed the following loans consultant notes: I have reviewed the results of the following tests: As above. I have ordered the following tests: As above. I have discussed the care of this patient with the following independent historian: I have independently interpreted the following test below: CXR I have discussed the management of this patient with the following physician: Objective - Vital Signs Vital signs: Vital Signs Temp 98.9 F 04/29/25 08:00 Pulse 103 H 04/29/25 10:30 Resp 20 04/29/25 10:30 BP 117/64 04/29/25 10:30 Pulse Ox 97 04/29/25 10:30 FiO2 50 04/29/25 09:27 Intake & Output 04/28/25 04/29/25 04/29/25 18:59 06:59 18:59 Intake Total 6709.208 4550.159 535.427 Output Total 628 900 310 Balance 717.541 423.159 225.427 Weight 93.3 kg Intake: IV 750 600 120 Sodium Chloride 0.9% 1, 750 600 120 000 ml @ 50 mls/hr IV . Q20H [facility] Rx#:[id number] Intake, IV Titration 415.541 333.159 195.427 Amount Cisatracurium 200 mg In 114.728 74.290 102.001 Sodium Chloride 0.9% 180 ml @ 1 MCG/KG/MIN 5.416 mls/hr IV .Q24H [facility] Rx#: [id number] Norepinephrine 8 mg In 15.315 Sodium Chloride 0.9% 250 ml @ 0.03 MCG/KG/MIN 5.24 mls/hr IV .Q24H [facility] Rx#: [id number] propofoL 1,000 mg In 285.498 258.869 93.426 Empty Bag 1 bag @ 15 MCG/ KG/MIN 8.124 mls/hr IV . [id number] [facility] Rx#:[id number] Tube Feeding 120 300 160 Other 60 90 60 Output: Urine 628 900 310 Other: Voiding Method Indwelling Catheter Indwelling Catheter ABP, PAP, CO, CI - Last Documented Arterial Blood Pressure 110/58 - Labs CBC & Chem 7: 04/29/25 04:00 04/29/25 04:00 Labs: Abnormal Lab Results - Last 24 Hours (Table) 04/28/25 04/28/25 04/28/25 Range/Units 11:32 17:49 23:11 WBC (4.50-10.00) 10*3/uL RBC (4.40-5.60) 10*6/uL Hgb (13.0-17.0) g/dL Hct (39.6-50.0) % MCHC (32.0-37.0) g/dL MPV (9.5-12.2) fL ABG pH (7.35-7.45) ABG pCO2 (35-45) mmHg ABG HCO3 (21-25) mmol/L ABG Total CO2 (19-24) mmol/L ABG O2 Saturation (94-97) % Hemoglobin (13.0-17.5) gm/dL Sodium (137-145) mmol/L Chloride (98-107) mmol/L Carbon Dioxide (22-30) mmol/L BUN (9-20) mg/dL Glucose (74-99) mg/dL POC Glucose (mg/dL) 241 H 273 H 303 H (70-110) mg/dL Hemoglobin A1c (<=6.0) % AST (17-59) U/L ALT (4-49) U/L Total Protein (6.3-8.2) g/dL Albumin (3.5-5.0) g/dL Procalcitonin (0.02-0.50) ng/mL 04/29/25 04/29/25 04/29/25 Range/Units 04:00 04:00 04:00 WBC 16.65 H (4.50-10.00) 10*3/uL RBC 3.47 L (4.40-5.60) 10*6/uL Hgb 9.8 L (13.0-17.0) g/dL Hct 32.0 L (39.6-50.0) % MCHC 30.6 L (32.0-37.0) g/dL MPV 9.0 L (9.5-12.2) fL ABG pH (7.35-7.45) ABG pCO2 (35-45) mmHg ABG HCO3 (21-25) mmol/L ABG Total CO2 (19-24) mmol/L ABG O2 Saturation (94-97) % Hemoglobin (13.0-17.5) gm/dL Sodium (137-145) mmol/L Chloride (98-107) mmol/L Carbon Dioxide (22-30) mmol/L BUN (9-20) mg/dL Glucose (74-99) mg/dL POC Glucose (mg/dL) (70-110) mg/dL Hemoglobin A1c 7.3 H (<=6.0) % AST (17-59) U/L ALT (4-49) U/L Total Protein (6.3-8.2) g/dL Albumin (3.5-5.0) g/dL Procalcitonin 0.97 H (0.02-0.50) ng/mL 04/29/25 04/29/25 04/29/25 Range/Units 04:00 04:28 06:06 WBC (4.50-10.00) 10*3/uL RBC (4.40-5.60) 10*6/uL Hgb (13.0-17.0) g/dL Hct (39.6-50.0) % MCHC (32.0-37.0) g/dL MPV (9.5-12.2) fL ABG pH 7.29 L (7.35-7.45) ABG pCO2 75 H* (35-45) mmHg ABG HCO3 36 H (21-25) mmol/L ABG Total CO2 38 H (19-24) mmol/L ABG O2 Saturation 97.3 H (94-97) % Hemoglobin 10.0 L (13.0-17.5) gm/dL Sodium 135 L (137-145) mmol/L Chloride 93 L (98-107) mmol/L Carbon Dioxide 37 H (22-30) mmol/L BUN 60 H (9-20) mg/dL Glucose 306 H (74-99) mg/dL POC Glucose (mg/dL) 354 H (70-110) mg/dL Hemoglobin A1c (<=6.0) % AST 412 H (17-59) U/L ALT 1091 H (4-49) U/L Total Protein 5.7 L (6.3-8.2) g/dL Albumin 3.3 L (3.5-5.0) g/dL Procalcitonin (0.02-0.50) ng/mL Microbiology - Last 24 Hours (Table) 04/27/25 15:41 Gram Stain - Final Sputum Sputum Culture - Final Proteus mirabilis Haemophilus influenzae
[2025-04-29 11:33] LABS: Glucose,Whole Blood 370 mg/dL (70-110)
--- NOTE | 2025-04-29 13:01 | P.PN ---
Subjective Progress Note Date: 04/29/25 The patient is a 64-year-old male who follows in the office with Dr. Pablo. Patient underwent TAVR procedure on April 15, 2025 and was discharged. He returned to the emergency room on April 22 with retroperitoneal hematoma, secondary to access site. At that time vital signs and blood work were stable a nd he was instructed to follow-up in the office. He returned to the emergency room yesterday with increased shortness of breath. Patient had a witnessed respiratory arrest in the emergency room, where he required emergency intubation. According to ER note patient had decreased responsiveness and arrested, therefore CPR was started and 1 round of epinephrine was given. There is no documentation of ventricular arrhythmia. Echocardiogram shows preserved LV function with severe pulmonary hypertension. Patient remains paralyzed on ventilator. No arrhythmias overnight according to nursing staff. GENERAL: Well-appearing, well-nourished and in no acute distress. NECK: Supple without JVD or thyromegaly. LUNGS: Breath sounds clear to auscultation bilaterally. Respiration equal and unlabored. No wheezes, rales or rhonchi. HEART: Regular rate and rhythm without murmurs, rubs or gallops. S1 and S2 heard. EXTREMITIES: Normal range of motion, mild edema. No clubbing or cyanosis. Peripheral pulses intact and strong. TELEMETRY: Sinus rhythm overnight LABS: WBC 16.6, hemoglobin 8.8, hematocrit 32.0, platelet 395, sodium 135, potassium 5.1, BUN 60, creatinine 1.09, AST 412, ALT 1091 IMPRESSION: Acute respiratory arrest, followed by brief loss of pulse and 1 round of CPR Mild elevation in troponins, secondary to CPR Acute hypercapnic respiratory failure, secondary to COPD exacerbation Left flank hematoma status post TAVR Advanced COPD Hypertension Hyperlipidemia Type 2 diabetes Peripheral vascular disease Right bundle branch block, present prior to TAVR PLAN: Continue supportive treatment Continue telemetry for advanced heart block after TAVR No further recommendations from the cardiac standpoint as the patient's event was secondary to respiratory arrest I am dictating on behalf of Dr Jose Roberto Caba's history/physical and assessment/plan. Objective - Vital Signs Vital signs: Vital Signs Temp 98.9 F 04/29/25 12:00 Pulse 103 H 04/29/25 12:00 Resp 30 H 04/29/25 12:00 BP 111/70 04/29/25 11:30 Pulse Ox 98 04/29/25 12:00 FiO2 50 04/29/25 11:32 Intake & Output 04/28/25 04/29/25 04/29/25 18:59 06:59 18:59 Intake Total 5374.731 7214.159 830.172 Output Total 628 900 420 Balance 717.541 423.159 410.172 Weight 93.3 kg Intake: IV 750 600 140 Sodium Chloride 0.9% 1, 750 600 140 000 ml @ 10 mls/hr IV . Q24H [facility] Rx#:[id number] Intake, IV Titration 415.541 333.159 345.172 Amount Cisatracurium 200 mg In 114.728 74.290 102.001 Sodium Chloride 0.9% 180 ml @ 1 MCG/KG/MIN 5.416 mls/hr IV .Q24H [facility] Rx#: [id number] Norepinephrine 8 mg In 15.315 Sodium Chloride 0.9% 250 ml @ 0.03 MCG/KG/MIN 5.24 mls/hr IV .Q24H [facility] Rx#: [id number] cefTRIAXone 2 gm In 50 Sodium Chloride 0.9% 50 ml @ 100 mls/hr IVPB Q24HR [facility] Rx#:[id number] propofoL 1,000 mg In 285.498 258.869 193.171 Empty Bag 1 bag @ 15 MCG/ KG/MIN 8.124 mls/hr IV . [id number] [facility] Rx#:[id number] Tube Feeding 120 300 255 Other 60 90 90 Output: Urine 628 900 420 Other: Voiding Method Indwelling Catheter Indwelling Catheter Indwelling Catheter ABP, PAP, CO, CI - Last Documented Arterial Blood Pressure 117/59 - Labs CBC & Chem 7: 04/29/25 04:00 04/29/25 04:00 Labs: Abnormal Lab Results - Last 24 Hours (Table) 04/28/25 04/28/25 04/29/25 Range/Units 17:49 23:11 04:00 WBC (4.50-10.00) 10*3/uL RBC (4.40-5.60) 10*6/uL Hgb (13.0-17.0) g/dL Hct (39.6-50.0) % MCHC (32.0-37.0) g/dL MPV (9.5-12.2) fL ABG pH (7.35-7.45) ABG pCO2 (35-45) mmHg ABG HCO3 (21-25) mmol/L ABG Total CO2 (19-24) mmol/L ABG O2 Saturation (94-97) % Hemoglobin (13.0-17.5) gm/dL Sodium (137-145) mmol/L Chloride (98-107) mmol/L Carbon Dioxide (22-30) mmol/L BUN (9-20) mg/dL Glucose (74-99) mg/dL POC Glucose (mg/dL) 273 H 303 H (70-110) mg/dL Hemoglobin A1c 7.3 H (<=6.0) % AST (17-59) U/L ALT (4-49) U/L Total Protein (6.3-8.2) g/dL Albumin (3.5-5.0) g/dL Procalcitonin (0.02-0.50) ng/mL 04/29/25 04/29/25 04/29/25 Range/Units 04:00 04:00 04:00 WBC 16.65 H (4.50-10.00) 10*3/uL RBC 3.47 L (4.40-5.60) 10*6/uL Hgb 9.8 L (13.0-17.0) g/dL Hct 32.0 L (39.6-50.0) % MCHC 30.6 L (32.0-37.0) g/dL MPV 9.0 L (9.5-12.2) fL ABG pH (7.35-7.45) ABG pCO2 (35-45) mmHg ABG HCO3 (21-25) mmol/L ABG Total CO2 (19-24) mmol/L ABG O2 Saturation (94-97) % Hemoglobin (13.0-17.5) gm/dL Sodium 135 L (137-145) mmol/L Chloride 93 L (98-107) mmol/L Carbon Dioxide 37 H (22-30) mmol/L BUN 60 H (9-20) mg/dL Glucose 306 H (74-99) mg/dL POC Glucose (mg/dL) (70-110) mg/dL Hemoglobin A1c (<=6.0) % AST 412 H (17-59) U/L ALT 1091 H (4-49) U/L Total Protein 5.7 L (6.3-8.2) g/dL Albumin 3.3 L (3.5-5.0) g/dL Procalcitonin 0.97 H (0.02-0.50) ng/mL 04/29/25 04/29/25 04/29/25 Range/Units 04:28 06:06 11:32 WBC (4.50-10.00) 10*3/uL RBC (4.40-5.60) 10*6/uL Hgb (13.0-17.0) g/dL Hct (39.6-50.0) % MCHC (32.0-37.0) g/dL MPV (9.5-12.2) fL ABG pH 7.29 L (7.35-7.45) ABG pCO2 75 H* (35-45) mmHg ABG HCO3 36 H (21-25) mmol/L ABG Total CO2 38 H (19-24) mmol/L ABG O2 Saturation 97.3 H (94-97) % Hemoglobin 10.0 L (13.0-17.5) gm/dL Sodium (137-145) mmol/L Chloride (98-107) mmol/L Carbon Dioxide (22-30) mmol/L BUN (9-20) mg/dL Glucose (74-99) mg/dL POC Glucose (mg/dL) 354 H 370 H (70-110) mg/dL Hemoglobin A1c (<=6.0) % AST (17-59) U/L ALT (4-49) U/L Total Protein (6.3-8.2) g/dL Albumin (3.5-5.0) g/dL Procalcitonin (0.02-0.50) ng/mL Microbiology - Last 24 Hours (Table) 04/27/25 15:41 Gram Stain - Final Sputum Sputum Culture - Final Proteus mirabilis Haemophilus influenzae
--- NOTE | 2025-04-29 16:53 | P.PN ---
Subjective Progress Note Date: 04/29/25 A 64-year-old male patient presented to the emergency department with acute respiratory failure. The patient was unresponsive and in respiratory arrest. CPR was immediately initiated. The patient was given a round of epinephrine and CPR and the patient was intubated in the emergency department. He had return of spontaneous circulation. I reviewed the initial EKG post resuscitation and the patient was in normal sinus rhythm with a right bundle branch block pattern. The initial rhythm at the time of his cardiac arrest is not known. Nevertheless, I suspect that the patient had an acute hypoxic/hypercapnic respiratory failure as the patient postintubation was actively bronchospastic and wheezy. I saw the patient immediately post intubation and the patient had very limited air entry bilaterally, active bronchospastic and wheezy and while being on the mechanical ventilator, the patient's peak airway pressure was 50 and the blood gas showed a pH of 7.0 with a PCO2 more than 98 and a pO2 of 232 and this was done at that appointment for 50, rate of 20, FiO2 100% with a PEEP of 5. The chest x-ray was reviewed and it showed a small left-sided pleural effusion. The patient underwent a CT of the chest and a CAT scan of the abdomen. CT of the chest showed no evidence of any pulmonary embolism and the patient had no filling defects. No mediastinal lymphadenopathy or any other acute cardiopulmonary abnormalities. Lungs were essentially clear. CAT scan of the abdomen and pelvis showed left flank hematoma present since 04/22/2025 and this occurred following a TAVR procedure. The patient had a low-density lesion along the left lateral hemipelvis with some mild stranding measuring 7.7 x 4.5 x 13.4 cm in size, likely presenting an intramuscular seroma without any free fluid in the pelvis. Findings were essentially similar compared to the earlier CAT scan on 04/22/2025. No other abnormalities noted. CAT scan of the brain showed no acute intracranial abnormalities. Blood work showed a white cell count of 18.4 with a hemoglobin 9.5 and a platelet count of 516. Normal coagulation profile. K levels of 5.6, bicarb is at 33 with a BUN of 21 and creatinine 0.8. Lactic acid level was at 3.1. Troponins were 0.1 and 0.1 respectively x 2 with a proBNP level of 1000. BUN is 21 with a creatinine of 0.8 and UA was also noted with 4 WBCs. Based on his ongoing hypoxic respiratory failure, high airway pressures and severe bronchospasm wheezing, the patient was started on DuoNeb nebulizer treatments [id number], IV Solu-Medrol and patient was kept on propofol and the patient was also started on paralytics with Nimbex. IV fluids are currently running at the rate of 100 cc of normal saline and the patient is also on low- dose norepinephrine for hemodynamic support. 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 04/28/2025, the patient is being seen for a follow-up. The patient remains intubated on a mechanical ventilator. This morning, the patient sedated with propofol running at 50 mcg/kg/min and Nimbex at 1 mcg/kg/min. Is adequately sedated and paralyzed. He remains on mechanical ventilator, assist-control mode at rate of 30, tidal volume of 400, FiO2 50% with a PEEP of 5. Peak airway pressure is 33. The blood gas showed a pH of 7.24 with a PCO2 of 76 and PO2 of 82. Chest x-ray shows no acute abnormalities. Orotracheal tube was pushed in and it seems to be in satisfactory position. He has some interstitial opacities bilaterally along with background COPD. NG tube is not clearly seen. The patient is on normal saline at rate of 100 cc an hour. Urine output is in order of 40 cc an hour. Fluid balance is +712 cc over the past 24 hours. He is on low-dose norepinephrine running at 0.01 mcg/kg/min. The patient has been COPD and the patient is oxygen dependent and steroid-dependent outpatient basis the patient has been taking 50 mg of prednisone on an outpatient basis. WBC count is at 19 with a hemoglobin 10.2 and a platelet count of 410. Sodium is at 136, potassium is at 5.2, bicarb is at 34, BUN is 40 with a creatinine of 1.1. LFTs are abnormal with an AST of 1110 [place] [address] and a normal alkaline phosphatase. Blood sugar slightly elevated due to steroid use and the patient is on insulin sliding scale coverage. The patient is also on empiric antibiotic coverage with IV Zosyn. The left flank and abdominal hematoma remains unchanged. On 04/29/2025, the patient remains intubated on the mechanical ventilator. The patient is on propofol running at 50 mcg/kg/min and the patient is on Nimbex running at 2 mcg/kg/min. The patient is adequately sedated and paralyzed. This morning, he is on assist-control mode at rate of 30, tidal volume of 400, FiO2 50% with a PEEP of 5. The blood gas showed a pH of 7.28 with a PCO2 of 75 and PO2 of 96. The peak airway pressure is 34. Chest x-ray shows no acute abnormalities. Her procalcitonin level was at 0.97. The patient remains on vital high-protein at rate of 40 cc an hour. Fluid balance is +1.1 L over the past 24 hours and the patient is on normal Saint rate of 50 cc an hour. Echocardiogram showed ejection fraction of 65%, dilatation of the RV and the pulmonary artery pressure of around 55. The white cell count of 16.6 with a hemoglobin 9.8 and a platelet count of 395. Sodium is at 135, potassium is at 5.1, bicarbonate 37, BUN 60 with a creatinine of 1.08. AST is 412. ALT is at 1 091. Total protein is at 5.7 with an albumin of 3.3. Remains on DuoNeb neb treatment [id number]. Remains on a combination of Perforomist and Pulmicort neb treatments twice a day and IV Solu-Medrol 60 mg every 6 hours. Remains on empiric antibiotic coverage with IV Rocephin. Remains on IV Solu- Medrol. Patient is off pressors for now. CAT scan of the abdomen and pelvis that was done at time of admission showed no significant intra-abdominal abnormalities. Left flank hematoma was essentially unchanged. The patient continues to have a stable hemoglobin and there is no significant drop in hemoglobin over the past 24 hours. He is post TAVR. He has an underlying rhythm that is sinus and the patient has a bundle branch block pattern. Objective - Vital Signs Vital signs: Vital Signs Temp 98.5 F 04/29/25 04:00 Pulse 100 04/29/25 09:32 Resp 30 H 04/29/25 07:00 BP 133/83 04/29/25 07:00 Pulse Ox 96 04/29/25 07:00 FiO2 50 04/29/25 09:27 Intake & Output 04/28/25 04/29/25 04/29/25 18:59 06:59 18:59 Intake Total 0031.214 0415.159 183.426 Output Total 628 900 90 Balance 717.541 423.159 93.426 Weight 93.3 kg Intake: IV 750 600 50 Sodium Chloride 0.9% 1, 750 600 50 000 ml @ 50 mls/hr IV . Q20H [facility] Rx#:[id number] Intake, IV Titration 415.541 333.159 93.426 Amount Cisatracurium 200 mg In 114.728 74.290 Sodium Chloride 0.9% 180 ml @ 1 MCG/KG/MIN 5.416 mls/hr IV .Q24H [facility] Rx#: [id number] Norepinephrine 8 mg In 15.315 Sodium Chloride 0.9% 250 ml @ 0.03 MCG/KG/MIN 5.24 mls/hr IV .Q24H [facility] Rx#: [id number] propofoL 1,000 mg In 285.498 258.869 93.426 Empty Bag 1 bag @ 15 MCG/ KG/MIN 8.124 mls/hr IV . [id number] [facility] Rx#:[id number] Tube Feeding 120 300 40 Other 60 90 Output: Urine 628 900 90 Other: Voiding Method Indwelling Catheter Indwelling Catheter ABP, PAP, CO, CI - Last Documented Arterial Blood Pressure 115/60 - Exam The patient appeared well nourished and normally developed. Vital signs as documented. The patient is currently intubated on mechanical ventilator. Orotr acheal and gastric tube are both in place. Head exam is unremarkable. No scleral icterus or corneal arcus noted. Neck is without jugular venous distension, thyromegaly, or carotid bruits. Carotid upstrokes are brisk bilaterally. Lungs show mild diminished breath sounds bilaterally, air entry is quite limited and the patient has prolongation of isolation phase of breathing and ongoing bronchospasm wheezing. Cardiac exam reveals the PMI to be normally sized and situated. Rhythm is regular. First and second heart sounds normal. No murmurs, rubs or gallops. Abdominal exam reveals normal bowel sounds, no masses, no organomegaly and no aortic enlargement. Lower abdominal hematoma extending to left flank Extremities are nonedematous and both femoral and pedal pulses are diminished bilaterally Examination of the skin revealed no evidence of significant rashes, suspicious appearing nevi or other concerning lesions. Neurologically, the patient is sedated and paralyzed. - Labs CBC & Chem 7: 04/29/25 04:00 04/29/25 04:00 Labs: Abnormal Lab Results - Last 24 Hours (Table) 04/28/25 04/28/25 04/28/25 Range/Units 11:32 17:49 23:11 WBC (4.50-10.00) 10*3/uL RBC (4.40-5.60) 10*6/uL Hgb (13.0-17.0) g/dL Hct (39.6-50.0) % MCHC (32.0-37.0) g/dL MPV (9.5-12.2) fL ABG pH (7.35-7.45) ABG pCO2 (35-45) mmHg ABG HCO3 (21-25) mmol/L ABG Total CO2 (19-24) mmol/L ABG O2 Saturation (94-97) % Hemoglobin (13.0-17.5) gm/dL Sodium (137-145) mmol/L Chloride (98-107) mmol/L Carbon Dioxide (22-30) mmol/L BUN (9-20) mg/dL Glucose (74-99) mg/dL POC Glucose (mg/dL) 241 H 273 H 303 H (70-110) mg/dL Hemoglobin A1c (<=6.0) % AST (17-59) U/L ALT (4-49) U/L Total Protein (6.3-8.2) g/dL Albumin (3.5-5.0) g/dL Procalcitonin (0.02-0.50) ng/mL 04/29/25 04/29/25 04/29/25 Range/Units 04:00 04:00 04:00 WBC 16.65 H (4.50-10.00) 10*3/uL RBC 3.47 L (4.40-5.60) 10*6/uL Hgb 9.8 L (13.0-17.0) g/dL Hct 32.0 L (39.6-50.0) % MCHC 30.6 L (32.0-37.0) g/dL MPV 9.0 L (9.5-12.2) fL ABG pH (7.35-7.45) ABG pCO2 (35-45) mmHg ABG HCO3 (21-25) mmol/L ABG Total CO2 (19-24) mmol/L ABG O2 Saturation (94-97) % Hemoglobin (13.0-17.5) gm/dL Sodium (137-145) mmol/L Chloride (98-107) mmol/L Carbon Dioxide (22-30) mmol/L BUN (9-20) mg/dL Glucose (74-99) mg/dL POC Glucose (mg/dL) (70-110) mg/dL Hemoglobin A1c 7.3 H (<=6.0) % AST (17-59) U/L ALT (4-49) U/L Total Protein (6.3-8.2) g/dL Albumin (3.5-5.0) g/dL Procalcitonin 0.97 H (0.02-0.50) ng/mL 04/29/25 04/29/25 04/29/25 Range/Units 04:00 04:28 06:06 WBC (4.50-10.00) 10*3/uL RBC (4.40-5.60) 10*6/uL Hgb (13.0-17.0) g/dL Hct (39.6-50.0) % MCHC (32.0-37.0) g/dL MPV (9.5-12.2) fL ABG pH 7.29 L (7.35-7.45) ABG pCO2 75 H* (35-45) mmHg ABG HCO3 36 H (21-25) mmol/L ABG Total CO2 38 H (19-24) mmol/L ABG O2 Saturation 97.3 H (94-97) % Hemoglobin 10.0 L (13.0-17.5) gm/dL Sodium 135 L (137-145) mmol/L Chloride 93 L (98-107) mmol/L Carbon Dioxide 37 H (22-30) mmol/L BUN 60 H (9-20) mg/dL Glucose 306 H (74-99) mg/dL POC Glucose (mg/dL) 354 H (70-110) mg/dL Hemoglobin A1c (<=6.0) % AST 412 H (17-59) U/L ALT 1091 H (4-49) U/L Total Protein 5.7 L (6.3-8.2) g/dL Albumin 3.3 L (3.5-5.0) g/dL Procalcitonin (0.02-0.50) ng/mL Microbiology - Last 24 Hours (Table) 04/27/25 15:41 Gram Stain - Preliminary Sputum Sputum Culture - Preliminary Proteus mirabilis Assessment and Plan Plan: Acute cardiopulmonary arrest although we suspect that this is most likely pulmonary arrest followed by cardiac arrest and the patient was briefly resuscitated in the emergency department received a round of epinephrine and CPR with return of spontaneous circulation. The patient is intubated and subsequently the patient was found to be in acute hypercapnic respiratory failure. There is interval improvement in acid-base status. The peak of her pressure has dropped as the patient is currently on a combination of bronchodilators, steroids and empiric antibiotic coverage with IV Rocephin. Chest x-ray remains free of any acute pulmonary infiltrates. Ongoing improvement in the acid-base status. The patient remains sedated and paralyzed. Acute hypercapnic respiratory failure essentially due to COPD exacerbation. CT of the chest was negative. CT scan of the abdomen and pelvis showed a stable left flank hematoma. Left flank hematoma status post TAVR Hemodynamically stable. No interval drop in the hemoglobin levels, on examination, the hematoma remains unchanged and stable Advanced COPD with chronic hypoxic respiratory failure, O2 dependent with severe obstructive limitation. The patient has been prednisone dependent 15 mg of prednisone on daily basis in addition to oxygen and he continues to smoke on and off on outpatient basis according to the family. Obstructive sleep apnea, maintained on CPAP therapy on outpatient basis Lactic acidosis Mild troponin leak, likely type II myocardial ischemia post cardiopulmonary arrest Left flank hematoma post TAVR Symptomatic severe aortic stenosis post TAVR on 04/15/2025 PAD with history of left femoral artery occlusion Hypertension Hyperlipidemia Type 2 diabetes mellitus Abnormal LFTs, transaminitis. Plan Keep the patient intubated on a mechanical ventilator. No changes on the mechanical ventilator to be done today. Keep the patient sedated with propofol and discontinue the Nimbex DuoNeb nebulizer treatments [id number] Perforomist and Pulmicort nebulized treatments twice a day IV Solu-Medrol 60 mg every 6 hours Utilize norepinephrine if needed to maintain mean atrial pressure above 65, currently off pressors IV Protonix Normal saline rate of 50 cc an hour Heparin subcu Lovenox 40 mg subcu for DVT prophylaxis echocardiogram from 04/16/2025 showed normal LV, TAVR noted with a mean gradient of 15 mmHg Monitor blood gases Monitor hemoglobin Monitor left flank hematoma Monitor LFTs stop Lipitor CAT scan of the abdomen showed no acute abnormalities in the patient's hematoma had been essentially stable. Hemoglobin remained stable Not ready for weaning for now. Continue enteral feeding for tissue support and the patient is on vital HP Critical care evaluation This evaluation was done and 35 minutes. Had a like discussion with the family and updated the family on his condition. Time with Patient: Greater than 30
[2025-04-29 17:23] LABS: Glucose,Whole Blood 379 mg/dL (70-110)
[2025-04-29] MEDS: INSULIN LISPRO (HumaLOG) 100 UNIT/ML 10 mL VL SQ SCH (17:38)
[2025-04-29] MEDS: INSULIN GLARGINE (LANTUS) 100 UNIT/ML SYR SQ SCH (20:28)
[2025-04-29 23:10] LABS: Glucose,Whole Blood 322 mg/dL (70-110)
[2025-04-30] MEDS: ACETAMINOPHEN TAB 325 MG TAB PO PRN (04:17)
[2025-04-30 04:20] LABS: Basophils # (A) 0.02 10*3/uL (0.00-0.10); Basophils % (A) 0.1 %; Eosinophils # (A) 0.00 10*3/uL (0.04-0.35); Eosinophils % (A) 0.0 %; HCT 31.2 % (39.6-50.0); HGB 9.4 g/dL (13.0-17.0); Lymphocytes # (A) 0.18 10*3/uL (0.90-5.00); Lymphocytes % (A) 0.9 %; MCH 28.4 pg (27.0-32.0); MCHC 30.1 g/dL (32.0-37.0); MCV 94.3 fL (80.0-97.0); Monocytes # (A) 0.80 10*3/uL (0.20-1.00); Monocytes % (A) 4.1 %; Neutrophils # (A) 18.19 10*3/uL (1.80-7.70); Neutrophils % (A) 94.1 %; Platelet Count 338 10*3/uL (140-440); RBC 3.31 10*6/uL (4.40-5.60); RDW 15.3 % (11.5-14.5); WBC 19.34 10*3/uL (4.50-10.00)
[2025-04-30 04:45] LABS: African American GFR (CKD) >90 (>60 ml/min/1.73 sqM); Anion Gap 3 mmol/L; Blood Urea Nitrogen 61 mg/dL (9-20); Calcium 8.7 mg/dL (8.4-10.2); Carbon Dioxide 40 mmol/L (22-30); Chloride 96 mmol/L (98-107); Glucose 276 mg/dL (74-99); Non-African American GFR(CKD) >90 (>60 ml/min/1.73 sqM); Potassium 6.0 mmol/L (3.5-5.1); Sodium 139 mmol/L (137-145)
[2025-04-30 04:45] LABS: ABG PH 7.32 (7.35-7.45); ABG PO2 77 mmHg (83-108); ABG TCO2 44 mmol/L (19-24)
[2025-04-30 04:47] LABS: ABG HCO3 41 mmol/L (21-25); ABG PCO2 80 mmHg (35-45); Allen Test Performed? No
[2025-04-30] MEDS: CALCIUM GLUCONATE IN NACL 1 GM in SALINE 1 100ML.BAG IVPB ONE (05:12)
[2025-04-30] MEDS: SODIUM ZIRCONIUM CYCLOSILICATE 10 GM PACKET PO ONE ×2 (05:12→13:02)
[2025-04-30] MEDS: INSULIN REGULAR 100 UNIT/ML VIAL (IV) IV ONE (05:12)
[2025-04-30] MEDS: DEXTROSE 50% SYRINGE 50 ML IVP ONE (05:20)
[2025-04-30 05:29] LABS: Glucose,Whole Blood 303 mg/dL (70-110)
[2025-04-30 06:23] LABS: Glucose,Whole Blood 212 mg/dL (70-110)
[2025-04-30] MEDS: ALBUTEROL NEB (CONC) 2.5 MG/0.5 ML INHALATION ONE (06:27)
--- NOTE | 2025-04-30 07:51 | XR ---
EXAMINATION TYPE: XR chest 1V portable DATE OF EXAM: 04/30/2025 5:54 AM COMPARISON: 04/29/2025 CLINICAL INDICATION: Male, 64 years old with history of Tube placement, , FINDINGS: ET tube is satisfactory. Unable to follow the distal aspect of the NG tube due to the degree of penet ration. Seen at least to the mid chest level. Endovascular aortic valve replacement. Left subclavian CVC tip mid to lower SVC level. Heart upper limits of normal in size. Hyperinflation with persistent mild diffuse interstitial densities. Otherwise, no consolidation or pleural effusion. IMPRESSION: 1. NG tube at least to the mid chest level. Distal aspect not well seen due to the degree of penetrat ion. 2. COPD with ongoing mild diffuse interstitial changes. [facility], , 04/30/2025 7:48 AM
[2025-04-30 11:51] LABS: ABG HCO3 39 mmol/L (21-25); ABG PH 7.23 (7.35-7.45); ABG PO2 101 mmHg (83-108); ABG TCO2 42 mmol/L (19-24); Glucose,Whole Blood 299 mg/dL (70-110)
[2025-04-30 11:53] LABS: ABG PCO2 94 mmHg (35-45); Allen Test Performed? no
--- NOTE | 2025-04-30 13:14 | P.PN ---
Subjective Progress Note Date: 04/30/25 64 year old M with PMH of COPD on 2L home O2, DM, HTN, GERD, HLD presents to the ED for SOB. History is obtained from his at bedside. Patient recently underwent TAVR on 04/15. Surgery was complicated with left flank hematoma. He had been doing well since his surgery. Over the past day, he reported increased shortness of breath not relieved with nebulized treatments. This prompted him to come to the ED. In the ED, he was noted to have agonal breathing and subsequently lost his pulse. MARLEE LOPEZ was called. He underwent high quality chest compressions, received 1 round of Epinephrine and intubated by Dr. Glass. ROSC was achieved. Vitals on arrival: BP 184/116, HR 105, RR 18, 98% on RA. Labs: WBC 18.42, RBC 3.95, Hg 11.5, Hct 36.9, Plt 516. INR 1.2. ABG pH 7, pCO2 > 98. K 5.6, Cl 93, bicarb 33, BUN 21, glu 117, T. Bili 2.8, AST 374, ALT 321. Trop 0.107. BNP 1030. UA neg LE or nitrite. EKG showed sinus tachycardia with RBBB CT brain no acute process CXR small L pleural effusion CTA chest no PE CT AP pending Patient was admitted to ICU for further workup and management. 04/28 Patient was seen and examined. Intubated and sedated. Paralytic includes Nimbex at 1 mcg/kg/min. Sedated with Propofol at 50 mcg/kg/min. On NS at 50 cc/hr. Started on Levophed at 0.01 mcg/kg/min as well. CBC and CMP significant for WBC 19.71, RBC 3.57, Hg 10.2, Hct 33.3, Na 136, K 5.2, Cl 95, bicarb 34, BUN 40, glu 217, AST 1110, ALT 1317, total protein 6.1. ABG pH 7.25, pCO2 77, pO2 83, FiO2 50. Trop 0.14, 0.214. POC glucose 129-236. Sputum Cx GNB. CXR shows bilateral interstitial markings. Echo shows EF 65-70% with mod-severe pulm HTN. CT AP shows stable hematoma. 04/29 Patient was seen and examined. Intubated and sedated. Off Nimbex and Levophed. Sedated with Propofol at 50 mcg/kg/min. On NS at 10 cc/hr. Antibiotics include Zosyn 3.75g IV TID (D2). CBC and CMP significant for WBC 16.65, RBC 3.47, Hg 9.8, Hct 32, Na 135, Cl 93, bicarb 37, BUN 60, glu 306, AST 412, ALT 1091, alb 3.3. ABG pH 7.29, pCO2 75, pO2 96, FiO2 50. Procal 0.97. POC glucose 236-354 over the past 24H. Sputum Cx Proteus and H. influenzae. CXR shows bilateral interstitial markings. 04/30 Patient was seen and examined. Intubated and sedated. Sedated with Propofol at 40 mcg/kg/min. On NS at 10 cc/hr. Antibiotics include Rocephin 2g IV QD (D2). CBC and CMP significant for WBC 19.34, RBC 3.31, Hg 9.4, Hct 31.2, K 6, Cl 96, bicarb 40, BUN 61, glu 376. ABG pH 7.23, pCO2 94, pO2 101, FiO2 60. POC glucose 212-379 over the past 24H. Sputum Cx Proteus and H. influenzae. CXR shows bilateral interstitial markings. General: non toxic, no distress, Intubated Derm: warm, dry Head: atraumatic, normocephalic, symmetric Eyes: EOMI, no lid lag, anicteric sclera Mouth: no lip lesion, mucus membranes moist Cardiovascular: S1S2 tachy, no murmur Lungs: Decreased BS bilateral, no rhonchi, no rales , no accessory muscle use Ext: no gross muscle atrophy, 3+ LE pitting edema, no contractures Neuro: Intubated Psych: Intubated Based on my assessment of this patient, this patient meets a high complexity level of care. Cardiac arrest likely secondary to COPD exacerbation: Duoneb QID scheduled and PRN SOB/wheezing. Pulmicort 1mg INH BID. Performist 20 mcg INH BID. Solumedrol 60 mg IV Q6H. Pulmonary, Cardiology and CT surgery on board. Acute on chronic hypoxic hypercapnic respiratory failure likely due to above: Started on Diamox 500 mg IV BID for hypercapnea. Left flank hematoma: CT AP shows stable left flank hematoma. Troponin elevation: Likely due to demand ischemia. ASA 81 mg PO QD. Simvastatin 80 mg PO QHS. Echo as above. Cardiology on board. Sepsis secondary to PNA: CXR with bilateral interstitial markings. Sputum Cx Proteus and H. influenzae. Procal 0.97. Stop Zosyn and start Rocephin 2g IV QD. Follow BCx + Sputum Cx + Legionella Ag. DM with hyperglycemia: A1c 7.5. Start Lantus 25 units QHS. Start Lispro 8 units TID. Continue MISS with Accuchecks ACHS along with hypoglycemic precautions. Normocytic anemia with Thrombocytosis: Likely due to left flank hematoma. Monitor and trend. Hyperbilirubinemia with Transaminitis: Likely due to hypotension. Improving. Trend. Resolved: Hypotension, HyperK CODE STATUS: FULL CODE DVT Prophylaxis: SCD due to hematoma. GI Prophylaxis: Protonix IV Designated medical POA if patient is not able to make medical decisions for themselves: I have reviewed the following therapeutic consultant notes: Pulm, Cardio. I have reviewed the results of the following tests: As above. I have ordered the following tests: As above. I have discussed the care of this patient with the following independent historian: I have independently interpreted the following test below: CXR I have discussed the management of this patient with the following physician: Objective - Vital Signs Vital signs: Vital Signs Temp 100.2 F H 04/30/25 08:30 Pulse 111 H 04/30/25 12:30 Resp 25 H 04/30/25 12:30 BP 140/72 04/30/25 12:00 Pulse Ox 92 L 04/30/25 12:30 FiO2 60 04/30/25 11:52 Intake & Output 04/29/25 04/30/25 04/30/25 18:59 06:59 18:59 Intake Total 9504.724 9145.854 481.074 Output Total 900 1345 470 Balance 459.447 -99.146 11.074 Weight 94.7 kg 94.6 kg Intake: IV 233 156 52 Pressure Bag 33 36 12 Sodium Chloride 0.9% 1, 200 120 40 000 ml @ 10 mls/hr IV . Q24H [facility] Rx#:[id number] Intake, IV Titration 421.447 339.854 179.074 Amount Cisatracurium 200 mg In 102.001 Sodium Chloride 0.9% 180 ml @ 1 MCG/KG/MIN 5.416 mls/hr IV .Q24H [facility] Rx#: [id number] cefTRIAXone 2 gm In 50 Sodium Chloride 0.9% 50 ml @ 100 mls/hr IVPB Q24HR [facility] Rx#:[id number] propofoL 1,000 mg In 269.446 339.854 179.074 Empty Bag 1 bag @ 15 MCG/ KG/MIN 8.124 mls/hr IV . [id number] [facility] Rx#:[id number] Tube Feeding 585 660 220 Other 120 90 30 Output: Urine 900 1345 470 Other: Voiding Method Indwelling Catheter Indwelling Catheter ABP, PAP, CO, CI - Last Documented Arterial Blood Pressure 137/65 - Labs CBC & Chem 7: 04/30/25 04:11 04/30/25 11:45 Labs: Abnormal Lab Results - Last 24 Hours (Table) 04/29/25 04/29/25 04/30/25 Range/Units 17:22 23:08 04:11 WBC 19.34 H (4.50-10.00) 10*3/uL RBC 3.31 L (4.40-5.60) 10*6/uL Hgb 9.4 L (13.0-17.0) g/dL Hct 31.2 L (39.6-50.0) % MCHC 30.1 L (32.0-37.0) g/dL MPV 9.1 L (9.5-12.2) fL Immature Gran # 0.15 H (0.00-0.04) 10*3/uL Neutrophils # 18.19 H (1.80-7.70) 10*3/uL Lymphocytes # 0.18 L (0.90-5.00) 10*3/uL Eosinophils # 0.00 L (0.04-0.35) 10*3/uL ABG pH (7.35-7.45) ABG pCO2 (35-45) mmHg ABG pO2 (83-108) mmHg ABG HCO3 (21-25) mmol/L ABG Total CO2 (19-24) mmol/L ABG O2 Saturation (94-97) % Hemoglobin (13.0-17.5) gm/dL Potassium (3.5-5.1) mmol/L Chloride (98-107) mmol/L Carbon Dioxide (22-30) mmol/L BUN (9-20) mg/dL Glucose (74-99) mg/dL POC Glucose (mg/dL) 379 H 322 H (70-110) mg/dL 04/30/25 04/30/25 04/30/25 Range/Units 04:11 04:40 05:27 WBC (4.50-10.00) 10*3/uL RBC (4.40-5.60) 10*6/uL Hgb (13.0-17.0) g/dL Hct (39.6-50.0) % MCHC (32.0-37.0) g/dL MPV (9.5-12.2) fL Immature Gran # (0.00-0.04) 10*3/uL Neutrophils # (1.80-7.70) 10*3/uL Lymphocytes # (0.90-5.00) 10*3/uL Eosinophils # (0.04-0.35) 10*3/uL ABG pH 7.32 L (7.35-7.45) ABG pCO2 80 H* (35-45) mmHg ABG pO2 77 L (83-108) mmHg ABG HCO3 41 H* (21-25) mmol/L ABG Total CO2 44 H (19-24) mmol/L ABG O2 Saturation (94-97) % Hemoglobin 9.7 L (13.0-17.5) gm/dL Potassium 6.0 H (3.5-5.1) mmol/L Chloride 96 L (98-107) mmol/L Carbon Dioxide 40 H (22-30) mmol/L BUN 61 H (9-20) mg/dL Glucose 276 H (74-99) mg/dL POC Glucose (mg/dL) 303 H (70-110) mg/dL 04/30/25 04/30/25 04/30/25 Range/Units 06:22 07:59 11:45 WBC (4.50-10.00) 10*3/uL RBC (4.40-5.60) 10*6/uL Hgb (13.0-17.0) g/dL Hct (39.6-50.0) % MCHC (32.0-37.0) g/dL MPV (9.5-12.2) fL Immature Gran # (0.00-0.04) 10*3/uL Neutrophils # (1.80-7.70) 10*3/uL Lymphocytes # (0.90-5.00) 10*3/uL Eosinophils # (0.04-0.35) 10*3/uL ABG pH (7.35-7.45) ABG pCO2 (35-45) mmHg ABG pO2 (83-108) mmHg ABG HCO3 (21-25) mmol/L ABG Total CO2 (19-24) mmol/L ABG O2 Saturation (94-97) % Hemoglobin (13.0-17.5) gm/dL Potassium 5.8 H 6.0 H (3.5-5.1) mmol/L Chloride (98-107) mmol/L Carbon Dioxide (22-30) mmol/L BUN (9-20) mg/dL Glucose (74-99) mg/dL POC Glucose (mg/dL) 212 H (70-110) mg/dL 04/30/25 04/30/25 Range/Units 11:48 11:48 WBC (4.50-10.00) 10*3/uL RBC (4.40-5.60) 10*6/uL Hgb (13.0-17.0) g/dL Hct (39.6-50.0) % MCHC (32.0-37.0) g/dL MPV (9.5-12.2) fL Immature Gran # (0.00-0.04) 10*3/uL Neutrophils # (1.80-7.70) 10*3/uL Lymphocytes # (0.90-5.00) 10*3/uL Eosinophils # (0.04-0.35) 10*3/uL ABG pH 7.23 L (7.35-7.45) ABG pCO2 94 H* (35-45) mmHg ABG pO2 (83-108) mmHg ABG HCO3 39 H (21-25) mmol/L ABG Total CO2 42 H (19-24) mmol/L ABG O2 Saturation 97.3 H (94-97) % Hemoglobin 9.8 L (13.0-17.5) gm/dL Potassium (3.5-5.1) mmol/L Chloride (98-107) mmol/L Carbon Dioxide (22-30) mmol/L BUN (9-20) mg/dL Glucose (74-99) mg/dL POC Glucose (mg/dL) 299 H (70-110) mg/dL Microbiology - Last 24 Hours (Table) 04/27/25 23:46 Blood Culture - Preliminary Blood 04/27/25 15:41 Gram Stain - Final Sputum Sputum Culture - Final Proteus mirabilis Haemophilus influenzae
--- NOTE | 2025-04-30 16:00 | P.PN ---
Subjective Progress Note Date: 04/30/25 A 64-year-old male patient presented to the emergency department with acute respiratory failure. The patient was unresponsive and in respiratory arrest. CPR was immediately initiated. The patient was given a round of epinephrine and CPR and the patient was intubated in the emergency department. He had return of spontaneous circulation. I reviewed the initial EKG post resuscitation and the patient was in normal sinus rhythm with a right bundle branch block pattern. The initial rhythm at the time of his cardiac arrest is not known. Nevertheless, I suspect that the patient had an acute hypoxic/hypercapnic respiratory failure as the patient postintubation was actively bronchospastic and wheezy. I saw the patient immediately post intubation and the patient had very limited air entry bilaterally, active bronchospastic and wheezy and while being on the mechanical ventilator, the patient's peak airway pressure was 50 and the blood gas showed a pH of 7.0 with a PCO2 more than 98 and a pO2 of 232 and this was done at that appointment for 50, rate of 20, FiO2 100% with a PEEP of 5. The chest x-ray was reviewed and it showed a small left-sided pleural effusion. The patient underwent a CT of the chest and a CAT scan of the abdomen. CT of the chest showed no evidence of any pulmonary embolism and the patient had no filling defects. No mediastinal lymphadenopathy or any other acute cardiopulmonary abnormalities. Lungs were essentially clear. CAT scan of the abdomen and pelvis showed left flank hematoma present since 04/22/2025 and this occurred following a TAVR procedure. The patient had a low-density lesion along the left lateral hemipelvis with some mild stranding measuring 7.7 x 4.5 x 13.4 cm in size, likely presenting an intramuscular seroma without any free fluid in the pelvis. Findings were essentially similar compared to the earlier CAT scan on 04/22/2025. No other abnormalities noted. CAT scan of the brain showed no acute intracranial abnormalities. Blood work showed a white cell count of 18.4 with a hemoglobin 9.5 and a platelet count of 516. Normal coagulation profile. K levels of 5.6, bicarb is at 33 with a BUN of 21 and creatinine 0.8. Lactic acid level was at 3.1. Troponins were 0.1 and 0.1 respectively x 2 with a proBNP level of 1000. BUN is 21 with a creatinine of 0.8 and UA was also noted with 4 WBCs. Based on his ongoing hypoxic respiratory failure, high airway pressures and severe bronchospasm wheezing, the patient was started on DuoNeb nebulizer treatments [id number], IV Solu-Medrol and patient was kept on propofol and the patient was also started on paralytics with Nimbex. IV fluids are currently running at the rate of 100 cc of normal saline and the patient is also on low- dose norepinephrine for hemodynamic support. 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 04/28/2025, the patient is being seen for a follow-up. The patient remains intubated on a mechanical ventilator. This morning, the patient sedated with propofol running at 50 mcg/kg/min and Nimbex at 1 mcg/kg/min. Is adequately sedated and paralyzed. He remains on mechanical ventilator, assist-control mode at rate of 30, tidal volume of 400, FiO2 50% with a PEEP of 5. Peak airway pressure is 33. The blood gas showed a pH of 7.24 with a PCO2 of 76 and PO2 of 82. Chest x-ray shows no acute abnormalities. Orotracheal tube was pushed in and it seems to be in satisfactory position. He has some interstitial opacities bilaterally along with background COPD. NG tube is not clearly seen. The patient is on normal saline at rate of 100 cc an hour. Urine output is in order of 40 cc an hour. Fluid balance is +712 cc over the past 24 hours. He is on low-dose norepinephrine running at 0.01 mcg/kg/min. The patient has been COPD and the patient is oxygen dependent and steroid-dependent outpatient basis the patient has been taking 50 mg of prednisone on an outpatient basis. WBC count is at 19 with a hemoglobin 10.2 and a platelet count of 410. Sodium is at 136, potassium is at 5.2, bicarb is at 34, BUN is 40 with a creatinine of 1.1. LFTs are abnormal with an AST of 1110 [place] [address] and a normal alkaline phosphatase. Blood sugar slightly elevated due to steroid use and the patient is on insulin sliding scale coverage. The patient is also on empiric antibiotic coverage with IV Zosyn. The left flank and abdominal hematoma remains unchanged. On 04/29/2025, the patient remains intubated on the mechanical ventilator. The patient is on propofol running at 50 mcg/kg/min and the patient is on Nimbex running at 2 mcg/kg/min. The patient is adequately sedated and paralyzed. This morning, he is on assist-control mode at rate of 30, tidal volume of 400, FiO2 50% with a PEEP of 5. The blood gas showed a pH of 7.28 with a PCO2 of 75 and PO2 of 96. The peak airway pressure is 34. Chest x-ray shows no acute abnormalities. Her procalcitonin level was at 0.97. The patient remains on vital high-protein at rate of 40 cc an hour. Fluid balance is +1.1 L over the past 24 hours and the patient is on normal Saint rate of 50 cc an hour. Echocardiogram showed ejection fraction of 65%, dilatation of the RV and the pulmonary artery pressure of around 55. The white cell count of 16.6 with a hemoglobin 9.8 and a platelet count of 395. Sodium is at 135, potassium is at 5.1, bicarbonate 37, BUN 60 with a creatinine of 1.08. AST is 412. ALT is at 1 091. Total protein is at 5.7 with an albumin of 3.3. Remains on DuoNeb neb treatment [id number]. Remains on a combination of Perforomist and Pulmicort neb treatments twice a day and IV Solu-Medrol 60 mg every 6 hours. Remains on empiric antibiotic coverage with IV Rocephin. Remains on IV Solu- Medrol. Patient is off pressors for now. CAT scan of the abdomen and pelvis that was done at time of admission showed no significant intra-abdominal abnormalities. Left flank hematoma was essentially unchanged. The patient continues to have a stable hemoglobin and there is no significant drop in hemoglobin over the past 24 hours. He is post TAVR. He has an underlying rhythm that is sinus and the patient has a bundle branch block pattern. On 04/30/2025, the patient is being seen for a follow-up. Remains intubated on mechanical ventilator. The patient remains on propofol which is running at 50 mcg/kg/min and the patient is currently off paralytics. The morning blood gases showed a pH of 7.32 with a PCO2 of 80 and PO2 of 77. This was done on assist- control mode with a rate of 70, tidal volume of 400, FiO2 50% and PEEP of 5. Chest x-ray shows no acute pulmonary infiltrates. A drop in the respiratory rate was down to 20 and FiO2 was dropped down to 40%. Subsequent blood gas showed a pH of 7.23 with a PCO2 of 94 and PO2 of 101. The patient was riding the mechanical ventilator and the patient is deeply sedated. Will gradually wean down his propofol. Meanwhile, morning blood draw showed a elevated potassium level and the patient had hyperkalemia. Potassium was at 6. The patient was given calcium gluconate, 10 units of insulin and Lokelma 10 mg. Subsequent potassium level improved. The the white cell count is at 19.3 with a hemoglobin 9.4 and a platelet count of 338. The sodium is at 139, most recent potassium level is down to 5.7, the serum bicarb is at 40, chloride is 96. The peak airway pressure is around 35. The patient is on vital high-protein at rate of 55 cc an hour. The patient is also on Lantus insulin for blood sugar control and the patient receiving Lantus 25 units and NovoLog 8 units 3 times daily and a sliding scale coverage. Remains on bronchodilators. Remains on steroids. Remains on Perforomist and Pulmicort nebulized treatments. Remains on empiric antibiotic coverage with IV Rocephin. Sputum sample is positive for Proteus m irabilis and haemophilus. Objective - Vital Signs Vital signs: Vital Signs Temp 100.2 F H 04/30/25 08:30 Pulse 99 04/30/25 09:00 Resp 30 H 04/30/25 09:00 BP 108/67 04/30/25 09:00 Pulse Ox 93 L 04/30/25 09:00 FiO2 50 04/30/25 09:00 Intake & Output 04/29/25 04/30/25 04/30/25 18:59 06:59 18:59 Intake Total 0680.482 2836.854 266 Output Total 900 1345 220 Balance 459.447 -99.146 46 Weight 94.7 kg 94.6 kg Intake: IV 233 156 26 Pressure Bag 33 36 6 Sodium Chloride 0.9% 1, 200 120 20 000 ml @ 10 mls/hr IV . Q24H [facility] Rx#:[id number] Intake, IV Titration 421.447 339.854 100 Amount Cisatracurium 200 mg In 102.001 Sodium Chloride 0.9% 180 ml @ 1 MCG/KG/MIN 5.416 mls/hr IV .Q24H [facility] Rx#: [id number] cefTRIAXone 2 gm In 50 Sodium Chloride 0.9% 50 ml @ 100 mls/hr IVPB Q24HR [facility] Rx#:[id number] propofoL 1,000 mg In 269.446 339.854 100 Empty Bag 1 bag @ 15 MCG/ KG/MIN 8.124 mls/hr IV . [id number] [facility] Rx#:[id number] Tube Feeding 585 660 110 Other 120 90 30 Output: Urine 900 1345 220 Other: Voiding Method Indwelling Catheter Indwelling Catheter ABP, PAP, CO, CI - Last Documented Arterial Blood Pressure 119/65 - Exam The patient appeared well nourished and normally developed. Vital signs as documented. The patient is currently intubated on mechanical ventilator. Orotracheal and gastric tube are both in place. Head exam is unremarkable. No scleral icterus or corneal arcus noted. Neck is without jugular venous distension, thyromegaly, or carotid bruits. Carotid upstrokes are brisk bilaterally. Lungs show mild diminished breath sounds bilaterally, air entry is quite limited and the patient has prolongation of isolation phase of breathing and ongoing bronchospasm wheezing. Cardiac exam reveals the PMI to be normally sized and situated. Rhythm is regular. First and second heart sounds normal. No murmurs, rubs or gallops. Abdominal exam reveals normal bowel sounds, no masses, no organomegaly and no aortic enlargement. Lower abdominal hematoma extending to left flank Extremities are nonedematous and both femoral and pedal pulses are diminished bilaterally Examination of the skin revealed no evidence of significant rashes, suspicious appearing nevi or other concerning lesions. Neurologically, the patient is sedated - Labs CBC & Chem 7: 04/30/25 04:11 04/30/25 15:10 Labs: Abnormal Lab Results - Last 24 Hours (Table) 04/29/25 04/29/25 04/29/25 Range/Units 04:00 04:00 11:32 WBC (4.50-10.00) 10*3/uL RBC (4.40-5.60) 10*6/uL Hgb (13.0-17.0) g/dL Hct (39.6-50.0) % MCHC (32.0-37.0) g/dL MPV (9.5-12.2) fL Immature Gran # (0.00-0.04) 10*3/uL Neutrophils # (1.80-7.70) 10*3/uL Lymphocytes # (0.90-5.00) 10*3/uL Eosinophils # (0.04-0.35) 10*3/uL ABG pH (7.35-7.45) ABG pCO2 (35-45) mmHg ABG pO2 (83-108) mmHg ABG HCO3 (21-25) mmol/L ABG Total CO2 (19-24) mmol/L Hemoglobin (13.0-17.5) gm/dL Potassium (3.5-5.1) mmol/L Chloride (98-107) mmol/L Carbon Dioxide (22-30) mmol/L BUN (9-20) mg/dL Glucose (74-99) mg/dL POC Glucose (mg/dL) 370 H (70-110) mg/dL Hemoglobin A1c 7.3 H (<=6.0) % Procalcitonin 0.97 H (0.02-0.50) ng/mL 04/29/25 04/29/25/ Range/Units 17:22 23:08 04:11 WBC 19.34 H (4.50-10.00) 10*3/uL RBC 3.31 L (4.40-5.60) 10*6/uL Hgb 9.4 L (13.0-17.0) g/dL Hct 31.2 L (39.6-50.0) % MCHC 30.1 L (32.0-37.0) g/dL MPV 9.1 L (9.5-12.2) fL Immature Gran # 0.15 H (0.00-0.04) 10*3/uL Neutrophils # 18.19 H (1.80-7.70) 10*3/uL Lymphocytes # 0.18 L (0.90-5.00) 10*3/uL Eosinophils # 0.00 L (0.04-0.35) 10*3/uL ABG pH (7.35-7.45) ABG pCO2 (35-45) mmHg ABG pO2 (83-108) mmHg ABG HCO3 (21-25) mmol/L ABG Total CO2 (19-24) mmol/L Hemoglobin (13.0-17.5) gm/dL Potassium (3.5-5.1) mmol/L Chloride (98-107) mmol/L Carbon Dioxide (22-30) mmol/L BUN (9-20) mg/dL Glucose (74-99) mg/dL POC Glucose (mg/dL) 379 H 322 H (70-110) mg/dL Hemoglobin A1c (<=6.0) % Procalcitonin (0.02-0.50) ng/mL 04/30/25 04/30/25 04/30/25 Range/Units 04:11 04:40 05:27 WBC (4.50-10.00) 10*3/uL RBC (4.40-5.60) 10*6/uL Hgb (13.0-17.0) g/dL Hct (39.6-50.0) % MCHC (32.0-37.0) g/dL MPV (9.5-12.2) fL Immature Gran # (0.00-0.04) 10*3/uL Neutrophils # (1.80-7.70) 10*3/uL Lymphocytes # (0.90-5.00) 10*3/uL Eosinophils # (0.04-0.35) 10*3/uL ABG pH 7.32 L (7.35-7.45) ABG pCO2 80 H* (35-45) mmHg ABG pO2 77 L (83-108) mmHg ABG HCO3 41 H* (21-25) mmol/L ABG Total CO2 44 H (19-24) mmol/L Hemoglobin 9.7 L (13.0-17.5) gm/dL Potassium 6.0 H (3.5-5.1) mmol/L Chloride 96 L (98-107) mmol/L Carbon Dioxide 40 H (22-30) mmol/L BUN 61 H (9-20) mg/dL Glucose 276 H (74-99) mg/dL POC Glucose (mg/dL) 303 H (70-110) mg/dL Hemoglobin A1c (<=6.0) % Procalcitonin (0.02-0.50) ng/mL 04/30/25 04/30/25 Range/Units 06:22 07:59 WBC (4.50-10.00) 10*3/uL RBC (4.40-5.60) 10*6/uL Hgb (13.0-17.0) g/dL Hct (39.6-50.0) % MCHC (32.0-37.0) g/dL MPV (9.5-12.2) fL Immature Gran # (0.00-0.04) 10*3/uL Neutrophils # (1.80-7.70) 10*3/uL Lymphocytes # (0.90-5.00) 10*3/uL Eosinophils # (0.04-0.35) 10*3/uL ABG pH (7.35-7.45) ABG pCO2 (35-45) mmHg ABG pO2 (83-108) mmHg ABG HCO3 (21-25) mmol/L ABG Total CO2 (19-24) mmol/L Hemoglobin (13.0-17.5) gm/dL Potassium 5.8 H (3.5-5.1) mmol/L Chloride (98-107) mmol/L Carbon Dioxide (22-30) mmol/L BUN (9-20) mg/dL Glucose (74-99) mg/dL POC Glucose (mg/dL) 212 H (70-110) mg/dL Hemoglobin A1c (<=6.0) % Procalcitonin (0.02-0.50) ng/mL Microbiology - Last 24 Hours (Table) 04/27/25 23:46 Blood Culture - Preliminary Blood 04/27/25 15:41 Gram Stain - Final Sputum Sputum Culture - Final Proteus mirabilis Haemophilus influenzae Assessment and Plan Plan: Acute cardiopulmonary arrest although we suspect that this is most likely pulmonary arrest followed by cardiac arrest and the patient was briefly resuscitated in the emergency department received a round of epinephrine and CPR with return of spontaneous circulation. The patient is intubated and subseque ntly the patient was found to be in acute hypercapnic respiratory failure. There is interval improvement in acid-base status. The peak of her pressure is improved although it remains elevated and the most recent peak airway pressure is around 35. The patient remains bronchospastic and wheezy. Sputum sample was positive for haemophilus influenza and Proteus and the patient is currently on IV Rocephin. Acute exacerbation of COPD, remains on bronchodilators and steroids. Sputum sample is positive for haemophilus and Proteus and the patient is currently on IV Rocephin. The patient is also on bronchodilators and steroids. We are allowing permissive hypercapnia. Acute hypercapnic respiratory failure essentially due to COPD exacerbation. CT of the chest was negative. CT scan of the abdomen and pelvis showed a stable left flank hematoma. Left flank hematoma status post TAVR Hemodynamically stable. No interval drop in the hemoglobin levels, on examination, the hematoma remains unchanged and stable Advanced COPD with chronic hypoxic respiratory failure, O2 dependent with severe obstructive limitation. The patient has been prednisone dependent 15 mg of prednisone on daily basis in addition to oxygen and he continues to smoke on and off on outpatient basis according to the family. Obstructive sleep apnea, maintained on CPAP therapy on outpatient basis Lactic acidosis Mild troponin leak, likely type II myocardial ischemia post cardiopulmonary arrest Left flank hematoma post TAVR Symptomatic severe aortic stenosis post TAVR on 04/15/2025 PAD with history of left femoral artery occlusion Hypertension Hyperlipidemia Type 2 diabetes mellitus Abnormal LFTs, transaminitis. The LFTs have been improving. Will obtain follow-up levels in AM. Hyperkalemia, likely related to acidosis. Patient was given low, and subsequent potassium level is now at 5.7. The patient was also given insulin and calcium gluconate. Plan Keep the patient intubated on a mechanical ventilator. The respiratory rate was reduced down to 20 FiO2 was reduced down to 40. Follow-up blood gases showing permissive hypercapnia. The patient has a low metabolic acidosis and the patient will be given Diamox 500 mg IV every 12 hours x 2 Continue ventilator support Will monitor acidosis and will obtain a follow-up blood gas Keep the patient sedated with propofol and reduce the propofol rate to a lower degree of sedation. DuoNeb nebulizer treatments [id number] Perforomist and Pulmicort nebulized treatments twice a day IV Solu-Medrol 60 mg every 6 hours Empiric antibiotic coverage with IV Rocephin Utilize norepinephrine if needed to maintain mean atrial pressure above 65, currently off pressors IV Protonix IV fluids are currently at KVO Heparin subcu Lovenox 40 mg subcu for DVT prophylaxis echocardiogram from 04/16/2025 showed normal LV, TAVR noted with a mean gradient of 15 mmHg Monitor blood gases Monitor left flank hematoma Monitor LFTs, improving and repeat levels will be obtained for tomorrow. stop Lipitor CAT scan of the abdomen showed no acute abnormalities in the patient's hematoma had been essentially stable. Hemoglobin remained stable Not ready for weaning for now. Continue enteral feeding for tissue support and the patient is on vital HP Critical care evaluation This evaluation was done and 35 minutes. Had a like discussion with the family and updated the family on his condition. Time with Patient: Greater than 30
[2025-04-30 17:05] LABS: ABG PH 7.21 (7.35-7.45); ABG PO2 82 mmHg (83-108)
[2025-04-30 17:08] LABS: ABG PCO2 >98 mmHg (35-45); Allen Test Performed? no
[2025-04-30 18:12] LABS: Glucose,Whole Blood 257 mg/dL (70-110)
[2025-04-30 23:14] LABS: Glucose,Whole Blood 253 mg/dL (70-110)
[2025-05-01 05:08] LABS: ABG PH 7.33 (7.35-7.45); ABG PO2 88 mmHg (83-108); ABG TCO2 44 mmol/L (19-24)
[2025-05-01 05:09] LABS: ABG PCO2 79 mmHg (35-45)
[2025-05-01 05:10] LABS: ABG HCO3 41 mmol/L (21-25); Allen Test Performed? No
[2025-05-01 05:35] LABS: Glucose,Whole Blood 267 mg/dL (70-110)
[2025-05-01 05:45] LABS: Basophils # (A) 0.02 10*3/uL (0.00-0.10); Basophils % (A) 0.1 %; Eosinophils # (A) 0.00 10*3/uL (0.04-0.35); Eosinophils % (A) 0.0 %; HCT 32.0 % (39.6-50.0); HGB 9.2 g/dL (13.0-17.0); Lymphocytes # (A) 0.33 10*3/uL (0.90-5.00); Lymphocytes % (A) 1.7 %; MCH 27.9 pg (27.0-32.0); MCHC 28.8 g/dL (32.0-37.0); MCV 97.0 fL (80.0-97.0); Monocytes # (A) 0.91 10*3/uL (0.20-1.00); Monocytes % (A) 4.6 %; Neutrophils # (A) 18.21 10*3/uL (1.80-7.70); Neutrophils % (A) 91.1 %; Platelet Count 307 10*3/uL (140-440); RBC 3.30 10*6/uL (4.40-5.60); RDW 15.2 % (11.5-14.5); WBC 19.97 10*3/uL (4.50-10.00)
[2025-05-01 05:58] LABS: African American GFR (CKD) >90 (>60 ml/min/1.73 sqM); Blood Urea Nitrogen 49 mg/dL (9-20); Calcium 8.8 mg/dL (8.4-10.2); Chloride 99 mmol/L (98-107); Glucose 253 mg/dL (74-99); Non-African American GFR(CKD) 78 (>60 ml/min/1.73 sqM); Potassium 5.3 mmol/L (3.5-5.1); Sodium 145 mmol/L (137-145)
[2025-05-01 06:04] LABS: Anion Gap 3 mmol/L
[2025-05-01 06:18] LABS: Carbon Dioxide 43 mmol/L (22-30)
--- NOTE | 2025-05-01 09:23 | XR ---
EXAMINATION TYPE: XR chest 1V portable DATE OF EXAM: 05/01/2025 4:41 AM COMPARISON: 04/30/2025 CLINICAL INDICATION: Male, 64 years old with history of mechanical ventilation, , FINDINGS: Heart upper limits of normal in size. Hyperinflation. Mild interstitial densities persist. No consoli dation or pleural effusion. ET tube satisfactory, but high just below the medial clavicular heads. Left subclavian CVC tip mid SV C level. Endovascular aortic valve replacement. IMPRESSION: COPD with similar mild diffuse interstitial opacities. [facility], Workstation: [facility], 05/01/2025 9:21 AM
[2025-05-01 11:17] LABS: Glucose,Whole Blood 259 mg/dL (70-110)
[2025-05-01] MEDS: ACETAMINOPHEN IV (For NPO) 1,000 MG in EMPTY BAG 1 BAG IVPB STA (12:24)
--- NOTE | 2025-05-01 14:55 | P.PN ---
Subjective Progress Note Date: 05/01/25 64 year old M with PMH of COPD on 2L home O2, DM, HTN, GERD, HLD presents to the ED for SOB. History is obtained from his at bedside. Patient recently underwent TAVR on 04/15. Surgery was complicated with left flank hematoma. He had been doing well since his surgery. Over the past day, he reported increased shortness of breath not relieved with nebulized treatments. This prompted him to come to the ED. In the ED, he was noted to have agonal breathing and subsequently lost his pulse. MARLEE LOPEZ was called. He underwent high quality chest compressions, received 1 round of Epinephrine and intubated by Dr. Glass. ROSC was achieved. Vitals on arrival: BP 184/116, HR 105, RR 18, 98% on RA. Labs: WBC 18.42, RBC 3.95, Hg 11.5, Hct 36.9, Plt 516. INR 1.2. ABG pH 7, pCO2 > 98. K 5.6, Cl 93, bicarb 33, BUN 21, glu 117, T. Bili 2.8, AST 374, ALT 321. Trop 0.107. BNP 1030. UA neg LE or nitrite. EKG showed sinus tachycardia with RBBB CT brain no acute process CXR small L pleural effusion CTA chest no PE CT AP pending Patient was admitted to ICU for further workup and management. 04/28 Patient was seen and examined. Intubated and sedated. Paralytic includes Nimbex at 1 mcg/kg/min. Sedated with Propofol at 50 mcg/kg/min. On NS at 50 cc/hr. Started on Levophed at 0.01 mcg/kg/min as well. CBC and CMP significant for WBC 19.71, RBC 3.57, Hg 10.2, Hct 33.3, Na 136, K 5.2, Cl 95, bicarb 34, BUN 40, glu 217, AST 1110, ALT 1317, total protein 6.1. ABG pH 7.25, pCO2 77, pO2 83, FiO2 50. Trop 0.14, 0.214. POC glucose 129-236. Sputum Cx GNB. CXR shows bilateral interstitial markings. Echo shows EF 65-70% with mod-severe pulm HTN. CT AP shows stable hematoma. 04/29 Patient was seen and examined. Intubated and sedated. Off Nimbex and Levophed. Sedated with Propofol at 50 mcg/kg/min. On NS at 10 cc/hr. Antibiotics include Zosyn 3.75g IV TID (D2). CBC and CMP significant for WBC 16.65, RBC 3.47, Hg 9.8, Hct 32, Na 135, Cl 93, bicarb 37, BUN 60, glu 306, AST 412, ALT 1091, alb 3.3. ABG pH 7.29, pCO2 75, pO2 96, FiO2 50. Procal 0.97. POC glucose 236-354 over the past 24H. Sputum Cx Proteus and H. influenzae. CXR shows bilateral interstitial markings. 04/30 Patient was seen and examined. Intubated and sedated. Sedated with Propofol at 40 mcg/kg/min. On NS at 10 cc/hr. Antibiotics include Rocephin 2g IV QD (D2). CBC and CMP significant for WBC 19.34, RBC 3.31, Hg 9.4, Hct 31.2, K 6, Cl 96, bicarb 40, BUN 61, glu 376. ABG pH 7.23, pCO2 94, pO2 101, FiO2 60. POC glucose 212-379 over the past 24H. Sputum Cx Proteus and H. influenzae. CXR shows bilateral interstitial markings. 05/01 Patient was seen and examined. Intubated and sedated. Sedated with Propofol at 25 mcg/kg/min. On NS at 10 cc/hr. Antibiotics include Rocephin 2g IV QD (D3). Tmax 102.2F. CBC and CMP significant for WBC 19.97, RBC 3.30, Hg 9.2, Hct 32, K 5.3, bicarb 43, BUN 49, glu 253. ABG pH 7.33, pCO2 79, pO2 88, FiO2 50. POC glucose 253-299 over the past 24H. Sputum Cx Proteus and H. influenzae. CXR shows bilateral interstitial markings. General: non toxic, no distress, Intubated Derm: warm, dry Head: atraumatic, normocephalic, symmetric Eyes: EOMI, no lid lag, anicteric sclera Mouth: no lip lesion, mucus membranes moist Cardiovascular: S1S2 tachy, no murmur Lungs: Decreased BS bilateral, no rhonchi, no rales , no accessory muscle use Ext: no gross muscle atrophy, 3+ LE pitting edema, no contractures Neuro: Intubated Psych: Intubated Based on my assessment of this patient, this patient meets a high complexity level of care. Cardiac arrest likely secondary to COPD exacerbation: Duoneb QID scheduled and PRN SOB/wheezing. Pulmicort 1mg INH BID. Performist 20 mcg INH BID. Solumedrol 60 mg IV Q6H. Pulmonary, Cardiology and CT surgery on board. Acute on chronic hypoxic hypercapnic respiratory failure likely due to above: Started on Diamox 500 mg IV BID for hypercapnea. Left flank hematoma: CT AP shows stable left flank hematoma. Troponin elevation: Likely due to demand ischemia. ASA 81 mg PO QD. Simvastatin 80 mg PO QHS. Echo as above. Cardiology on board. Sepsis secondary to PNA: CXR with bilateral interstitial markings. Sputum Cx Proteus and H. influenzae. Procal 0.97. Continue Rocephin 2g IV QD. Follow BCx + Sputum Cx + Legionella Ag. DM with hyperglycemia: A1c 7.5. Lantus 25 units QHS. Lispro 8 units TID. Continue MISS with Accuchecks ACHS along with hypoglycemic precautions. Normocytic anemia with Thrombocytosis: Likely due to left flank hematoma. Monitor and trend. Hyperbilirubinemia with Transaminitis: Likely due to hypotension. Improving. Trend. Resolved: Hypotension, HyperK CODE STATUS: FULL CODE DVT Prophylaxis: SCD due to hematoma. GI Prophylaxis: Protonix IV Designated medical POA if patient is not able to make medical decisions for themselves: I have reviewed the following design sales consultant notes: Pulm. I have reviewed the results of the following tests: As above. I have ordered the following tests: As above. I have discussed the care of this patient with the following independent historian: OLIMPIA. I have independently interpreted the following test below: CXR I have discussed the management of this patient with the following physician: Objective - Vital Signs Vital signs: Vital Signs Temp 102.2 F H 05/01/25 12:00 Pulse 112 H 05/01/25 14:00 Resp 30 H 05/01/25 14:00 BP 139/77 05/01/25 14:00 Pulse Ox 94 L 05/01/25 14:00 FiO2 50 05/01/25 12:08 Intake & Output 04/30/25 05/01/25 05/01/25 18:59 06:59 18:59 Intake Total 7848.248 6352 721.343 Output Total 1795 1701 1060 Balance -541.926 -625 -338.657 Weight 96.6 kg 96.6 kg Intake: IV 169 156 136 Pressure Bag 39 36 21 Sodium Chloride 0.9% 1, 130 120 65 000 ml @ 10 mls/hr IV . Q24H JÚNIOR Rx#:[id number] cefTRIAXone 2 gm In 50 Sodium Chloride 0.9% 50 ml @ 100 mls/hr IVPB Q24HR JÚNIOR Rx#:[id number] Intake, IV Titration 279.074 200 175.343 Amount propofoL 1,000 mg In 279.074 200 175.343 Empty Bag 1 bag @ 15 MCG/ KG/MIN 8.124 mls/hr IV . [id number] JÚNIOR Rx#:[id number] Tube Feeding 715 660 350 Other 90 60 60 Output: Urine 1795 1701 1060 Other: Voiding Method Indwelling Catheter Indwelling Catheter Indwelling Catheter ABP, PAP, CO, CI - Last Documented Arterial Blood Pressure 148/66 - Labs CBC & Chem 7: 05/01/25 05:27 05/01/25 05:27 Labs: Abnormal Lab Results - Last 24 Hours (Table) 04/30/25 04/30/25 04/30/25 Range/Units 15:10 17:01 18:00 WBC (4.50-10.00) 10*3/uL RBC (4.40-5.60) 10*6/uL Hgb (13.0-17.0) g/dL Hct (39.6-50.0) % MCHC (32.0-37.0) g/dL MPV (9.5-12.2) fL Immature Gran # (0.00-0.04) 10*3/uL Neutrophils # (1.80-7.70) 10*3/uL Lymphocytes # (0.90-5.00) 10*3/uL Eosinophils # (0.04-0.35) 10*3/uL ABG pH 7.21 L (7.35-7.45) ABG pCO2 >98 H* (35-45) mmHg ABG pO2 82 L (83-108) mmHg ABG HCO3 (21-25) mmol/L ABG Total CO2 (19-24) mmol/L ABG O2 Saturation (94-97) % Hemoglobin 9.9 L (13.0-17.5) gm/dL Potassium 5.7 H (3.5-5.1) mmol/L Carbon Dioxide (22-30) mmol/L BUN (9-20) mg/dL Glucose (74-99) mg/dL POC Glucose (mg/dL) 257 H (70-110) mg/dL 04/30/25 04/30/25 05/01/25 Range/Units 23:10 23:13 05:00 WBC (4.50-10.00) 10*3/uL RBC (4.40-5.60) 10*6/uL Hgb (13.0-17.0) g/dL Hct (39.6-50.0) % MCHC (32.0-37.0) g/dL MPV (9.5-12.2) fL Immature Gran # (0.00-0.04) 10*3/uL Neutrophils # (1.80-7.70) 10*3/uL Lymphocytes # (0.90-5.00) 10*3/uL Eosinophils # (0.04-0.35) 10*3/uL ABG pH 7.33 L (7.35-7.45) ABG pCO2 79 H* (35-45) mmHg ABG pO2 (83-108) mmHg ABG HCO3 41 H* (21-25) mmol/L ABG Total CO2 44 H (19-24) mmol/L ABG O2 Saturation 97.1 H (94-97) % Hemoglobin 9.6 L (13.0-17.5) gm/dL Potassium 5.5 H (3.5-5.1) mmol/L Carbon Dioxide (22-30) mmol/L BUN (9-20) mg/dL Glucose (74-99) mg/dL POC Glucose (mg/dL) 253 H (70-110) mg/dL 05/01/25 05/01/25 05/01/25 Range/Units 05:27 05:27 05:33 WBC 19.97 H (4.50-10.00) 10*3/uL RBC 3.30 L (4.40-5.60) 10*6/uL Hgb 9.2 L (13.0-17.0) g/dL Hct 32.0 L (39.6-50.0) % MCHC 28.8 L (32.0-37.0) g/dL MPV 9.2 L (9.5-12.2) fL Immature Gran # 0.50 H (0.00-0.04) 10*3/uL Neutrophils # 18.21 H (1.80-7.70) 10*3/uL Lymphocytes # 0.33 L (0.90-5.00) 10*3/uL Eosinophils # 0.00 L (0.04-0.35) 10*3/uL ABG pH (7.35-7.45) ABG pCO2 (35-45) mmHg ABG pO2 (83-108) mmHg ABG HCO3 (21-25) mmol/L ABG Total CO2 (19-24) mmol/L ABG O2 Saturation (94-97) % Hemoglobin (13.0-17.5) gm/dL Potassium 5.3 H (3.5-5.1) mmol/L Carbon Dioxide 43 H* (22-30) mmol/L BUN 49 H (9-20) mg/dL Glucose 253 H (74-99) mg/dL POC Glucose (mg/dL) 267 H (70-110) mg/dL 05/01/25 Range/Units 11:16 WBC (4.50-10.00) 10*3/uL RBC (4.40-5.60) 10*6/uL Hgb (13.0-17.0) g/dL Hct (39.6-50.0) % MCHC (32.0-37.0) g/dL MPV (9.5-12.2) fL Immature Gran # (0.00-0.04) 10*3/uL Neutrophils # (1.80-7.70) 10*3/uL Lymphocytes # (0.90-5.00) 10*3/uL Eosinophils # (0.04-0.35) 10*3/uL ABG pH (7.35-7.45) ABG pCO2 (35-45) mmHg ABG pO2 (83-108) mmHg ABG HCO3 (21-25) mmol/L ABG Total CO2 (19-24) mmol/L ABG O2 Saturation (94-97) % Hemoglobin (13.0-17.5) gm/dL Potassium (3.5-5.1) mmol/L Carbon Dioxide (22-30) mmol/L BUN (9-20) mg/dL Glucose (74-99) mg/dL POC Glucose (mg/dL) 259 H (70-110) mg/dL Microbiology - Last 24 Hours (Table) 04/27/25 23:46 Blood Culture - Preliminary Blood
--- NOTE | 2025-05-01 14:55 | P.PN ---
Subjective Progress Note Date: 05/01/25 A 64-year-old male patient presented to the emergency department with acute respiratory failure. The patient was unresponsive and in respiratory arrest. CPR was immediately initiated. The patient was given a round of epinephrine and CPR and the patient was intubated in the emergency department. He had return of spontaneous circulation. I reviewed the initial EKG post resuscitation and the patient was in normal sinus rhythm with a right bundle branch block pattern. The initial rhythm at the time of his cardiac arrest is not known. Nevertheless, I suspect that the patient had an acute hypoxic/hypercapnic respiratory failure as the patient postintubation was actively bronchospastic and wheezy. I saw the patient immediately post intubation and the patient had very limited air entry bilaterally, active bronchospastic and wheezy and while being on the mechanical ventilator, the patient's peak airway pressure was 50 and the blood gas showed a pH of 7.0 with a PCO2 more than 98 and a pO2 of 232 and this was done at that appointment for 50, rate of 20, FiO2 100% with a PEEP of 5. The chest x-ray was reviewed and it showed a small left-sided pleural effusion. The patient underwent a CT of the chest and a CAT scan of the abdomen. CT of the chest showed no evidence of any pulmonary embolism and the patient had no filling defects. No mediastinal lymphadenopathy or any other acute cardiopulmonary abnormalities. Lungs were essentially clear. CAT scan of the abdomen and pelvis showed left flank hematoma present since 04/22/2025 and this occurred following a TAVR procedure. The patient had a low-density lesion along the left lateral hemipelvis with some mild stranding measuring 7.7 x 4.5 x 13.4 cm in size, likely presenting an intramuscular seroma without any free fluid in the pelvis. Findings were essentially similar compared to the earlier CAT scan on 04/22/2025. No other abnormalities noted. CAT scan of the brain showed no acute intracranial abnormalities. Blood work showed a white cell count of 18.4 with a hemoglobin 9.5 and a platelet count of 516. Normal coagulation profile. K levels of 5.6, bicarb is at 33 with a BUN of 21 and creatinine 0.8. Lactic acid level was at 3.1. Troponins were 0.1 and 0.1 respectively x 2 with a proBNP level of 1000. BUN is 21 with a creatinine of 0.8 and UA was also noted with 4 WBCs. Based on his ongoing hypoxic respiratory failure, high airway pressures and severe bronchospasm wheezing, the patient was started on DuoNeb nebulizer treatments [id number], IV Solu-Medrol and patient was kept on propofol and the patient was also started on paralytics with Nimbex. IV fluids are currently running at the rate of 100 cc of normal saline and the patient is also on low- dose norepinephrine for hemodynamic support. 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 04/28/2025, the patient is being seen for a follow-up. The patient remains intubated on a mechanical ventilator. This morning, the patient sedated with propofol running at 50 mcg/kg/min and Nimbex at 1 mcg/kg/min. Is adequately sedated and paralyzed. He remains on mechanical ventilator, assist-control mode at rate of 30, tidal volume of 400, FiO2 50% with a PEEP of 5. Peak airway pressure is 33. The blood gas showed a pH of 7.24 with a PCO2 of 76 and PO2 of 82. Chest x-ray shows no acute abnormalities. Orotracheal tube was pushed in and it seems to be in satisfactory position. He has some interstitial opacities bilaterally along with background COPD. NG tube is not clearly seen. The patient is on normal saline at rate of 100 cc an hour. Urine output is in order of 40 cc an hour. Fluid balance is +712 cc over the past 24 hours. He is on low-dose norepinephrine running at 0.01 mcg/kg/min. The patient has been COPD and the patient is oxygen dependent and steroid-dependent outpatient basis the patient has been taking 50 mg of prednisone on an outpatient basis. WBC count is at 19 with a hemoglobin 10.2 and a platelet count of 410. Sodium is at 136, potassium is at 5.2, bicarb is at 34, BUN is 40 with a creatinine of 1.1. LFTs are abnormal with an AST of 1110 [place] [address] and a normal alkaline phosphatase. Blood sugar slightly elevated due to steroid use and the patient is on insulin sliding scale coverage. The patient is also on empiric antibiotic coverage with IV Zosyn. The left flank and abdominal hematoma remains unchanged. On 04/29/2025, the patient remains intubated on the mechanical ventilator. The patient is on propofol running at 50 mcg/kg/min and the patient is on Nimbex running at 2 mcg/kg/min. The patient is adequately sedated and paralyzed. This morning, he is on assist-control mode at rate of 30, tidal volume of 400, FiO2 50% with a PEEP of 5. The blood gas showed a pH of 7.28 with a PCO2 of 75 and PO2 of 96. The peak airway pressure is 34. Chest x-ray shows no acute abnormalities. Her procalcitonin level was at 0.97. The patient remains on vital high-protein at rate of 40 cc an hour. Fluid balance is +1.1 L over the past 24 hours and the patient is on normal Saint rate of 50 cc an hour. Echocardiogram showed ejection fraction of 65%, dilatation of the RV and the pulmonary artery pressure of around 55. The white cell count of 16.6 with a hemoglobin 9.8 and a platelet count of 395. Sodium is at 135, potassium is at 5.1, bicarbonate 37, BUN 60 with a creatinine of 1.08. AST is 412. ALT is at 1 091. Total protein is at 5.7 with an albumin of 3.3. Remains on DuoNeb neb treatment [id number]. Remains on a combination of Perforomist and Pulmicort neb treatments twice a day and IV Solu-Medrol 60 mg every 6 hours. Remains on empiric antibiotic coverage with IV Rocephin. Remains on IV Solu- Medrol. Patient is off pressors for now. CAT scan of the abdomen and pelvis that was done at time of admission showed no significant intra-abdominal abnormalities. Left flank hematoma was essentially unchanged. The patient continues to have a stable hemoglobin and there is no significant drop in hemoglobin over the past 24 hours. He is post TAVR. He has an underlying rhythm that is sinus and the patient has a bundle branch block pattern. On 04/30/2025, the patient is being seen for a follow-up. Remains intubated on mechanical ventilator. The patient remains on propofol which is running at 50 mcg/kg/min and the patient is currently off paralytics. The morning blood gases showed a pH of 7.32 with a PCO2 of 80 and PO2 of 77. This was done on assist- control mode with a rate of 70, tidal volume of 400, FiO2 50% and PEEP of 5. Chest x-ray shows no acute pulmonary infiltrates. A drop in the respiratory rate was down to 20 and FiO2 was dropped down to 40%. Subsequent blood gas showed a pH of 7.23 with a PCO2 of 94 and PO2 of 101. The patient was riding the mechanical ventilator and the patient is deeply sedated. Will gradually wean down his propofol. Meanwhile, morning blood draw showed a elevated potassium level and the patient had hyperkalemia. Potassium was at 6. The patient was given calcium gluconate, 10 units of insulin and Lokelma 10 mg. Subsequent potassium level improved. The the white cell count is at 19.3 with a hemoglobin 9.4 and a platelet count of 338. The sodium is at 139, most recent potassium level is down to 5.7, the serum bicarb is at 40, chloride is 96. The peak airway pressure is around 35. The patient is on vital high-protein at rate of 55 cc an hour. The patient is also on Lantus insulin for blood sugar control and the patient receiving Lantus 25 units and NovoLog 8 units 3 times daily and a sliding scale coverage. Remains on bronchodilators. Remains on steroids. Remains on Perforomist and Pulmicort nebulized treatments. Remains on empiric antibiotic coverage with IV Rocephin. Sputum sample is positive for Proteus m irabilis and haemophilus. On today's evaluation of 05/01/2025, the patient is being seen for a follow-up. The patient is off paralytics and the patient is currently on propofol running at 35 mcg/kg/min. The patient currently is on a mechanical ventilator assist- control mode at rate of 30, tidal volume of 400, FiO2 of 50% with a PEEP of 5. Patient has a pH of 7.33 with a PCO2 of 79 and PO2 of 80. Sputum positive for Proteus and haemophilus and the patient remains on IV Rocephin. Chest x-ray shows no evidence of pneumonia. Peak airway pressure is around 34. IV fluids are KVO. Fluid balance is -1.1 L. Cardiac rhythm is sinus. No pressors. The patient remains on vital protein at rate of 55 cc an hour. Remains on bronchodilators. Remains on IV Solu-Medrol. Remains on Lantus insulin 25 units along with NovoLog sliding scale coverage. Last flank and abdominal hematoma is unchanged extending to the scrotum. No significant swelling. No drop in the hemoglobin. The blood work from today shows a WBC count of 19.7, hemoglobin 9.2 and platelet count of 307. Serum bicarbonate is 43, sodium is 145, potassium is at 5.3, chloride is 99. Objective - Vital Signs Vital signs: Vital Signs Temp 98.7 F 05/01/25 04:00 Pulse 100 05/01/25 07:02 Resp 31 H 05/01/25 07:00 BP 130/71 05/01/25 07:00 Pulse Ox 95 05/01/25 07:00 FiO2 50 05/01/25 07:41 Intake & Output 04/30/25 05/01/25 05/01/25 18:59 06:59 18:59 Intake Total 0402.917 9628 81.195 Output Total 1795 1701 Balance -541.926 -625 81.195 Weight 96.6 kg Intake: IV 169 156 Pressure Bag 39 36 Sodium Chloride 0.9% 1, 130 120 000 ml @ 10 mls/hr IV . Q24H JÚNIOR Rx#:[id number] Intake, IV Titration 279.074 200 81.195 Amount propofoL 1,000 mg In 279.074 200 81.195 Empty Bag 1 bag @ 15 MCG/ KG/MIN 8.124 mls/hr IV . [id number] JÚNIOR Rx#:[id number] Tube Feeding 715 660 Other 90 60 Output: Urine 1795 1701 Other: Voiding Method Indwelling Catheter Indwelling Catheter ABP, PAP, CO, CI - Last Documented Arterial Blood Pressure 126/59 - Exam The patient appeared well nourished and normally developed. Vital signs as documented. The patient is currently intubated on mechanical ventilator. Orotracheal and gastric tube are both in place. Head exam is unremarkable. No scleral icterus or corneal arcus noted. Neck is without jugular venous distension, thyromegaly, or carotid bruits. Carotid upstrokes are brisk bilaterally. Lungs show mild diminished breath sounds bilaterally, air entry is quite limited and the patient has prolongation of isolation phase of breathing and ongoing bronchospasm wheezing. Cardiac exam reveals the PMI to be normally sized and situated. Rhythm is regular. First and second heart sounds normal. No murmurs, rubs or gallops. Abdominal exam reveals normal bowel sounds, no masses, no organomegaly and no aortic enlargement. Lower abdominal hematoma extending to left flank Extremities are nonedematous and both femoral and pedal pulses are diminished bilaterally Examination of the skin revealed no evidence of significant rashes, suspicious appearing nevi or other concerning lesions. Neurologically, the patient is sedated - Labs CBC & Chem 7: 05/01/25 05:27 05/01/25 05:27 Labs: Abnormal Lab Results - Last 24 Hours (Table) 04/30/25 04/30/25 04/30/25 Range/Units 11:45 11:48 11:48 WBC (4.50-10.00) 10*3/uL RBC (4.40-5.60) 10*6/uL Hgb (13.0-17.0) g/dL Hct (39.6-50.0) % MCHC (32.0-37.0) g/dL MPV (9.5-12.2) fL Immature Gran # (0.00-0.04) 10*3/uL Neutrophils # (1.80-7.70) 10*3/uL Lymphocytes # (0.90-5.00) 10*3/uL Eosinophils # (0.04-0.35) 10*3/uL ABG pH 7.23 L (7.35-7.45) ABG pCO2 94 H* (35-45) mmHg ABG pO2 (83-108) mmHg ABG HCO3 39 H (21-25) mmol/L ABG Total CO2 42 H (19-24) mmol/L ABG O2 Saturation 97.3 H (94-97) % Hemoglobin 9.8 L (13.0-17.5) gm/dL Potassium 6.0 H (3.5-5.1) mmol/L Carbon Dioxide (22-30) mmol/L BUN (9-20) mg/dL Glucose (74-99) mg/dL POC Glucose (mg/dL) 299 H (70-110) mg/dL 04/30/25 04/30/25 04/30/25 Range/Units 15:10 17:01 18:00 WBC (4.50-10.00) 10*3/uL RBC (4.40-5.60) 10*6/uL Hgb (13.0-17.0) g/dL Hct (39.6-50.0) % MCHC (32.0-37.0) g/dL MPV (9.5-12.2) fL Immature Gran # (0.00-0.04) 10*3/uL Neutrophils # (1.80-7.70) 10*3/uL Lymphocytes # (0.90-5.00) 10*3/uL Eosinophils # (0.04-0.35) 10*3/uL ABG pH 7.21 L (7.35-7.45) ABG pCO2 >98 H* (35-45) mmHg ABG pO2 82 L (83-108) mmHg ABG HCO3 (21-25) mmol/L ABG Total CO2 (19-24) mmol/L ABG O2 Saturation (94-97) % Hemoglobin 9.9 L (13.0-17.5) gm/dL Potassium 5.7 H (3.5-5.1) mmol/L Carbon Dioxide (22-30) mmol/L BUN (9-20) mg/dL Glucose (74-99) mg/dL POC Glucose (mg/dL) 257 H (70-110) mg/dL 04/30/25 04/30/25 05/01/25 Range/Units 23:10 23:13 05:00 WBC (4.50-10.00) 10*3/uL RBC (4.40-5.60) 10*6/uL Hgb (13.0-17.0) g/dL Hct (39.6-50.0) % MCHC (32.0-37.0) g/dL MPV (9.5-12.2) fL Immature Gran # (0.00-0.04) 10*3/uL Neutrophils # (1.80-7.70) 10*3/uL Lymphocytes # (0.90-5.00) 10*3/uL Eosinophils # (0.04-0.35) 10*3/uL ABG pH 7.33 L (7.35-7.45) ABG pCO2 79 H* (35-45) mmHg ABG pO2 (83-108) mmHg ABG HCO3 41 H* (21-25) mmol/L ABG Total CO2 44 H (19-24) mmol/L ABG O2 Saturation 97.1 H (94-97) % Hemoglobin 9.6 L (13.0-17.5) gm/dL Potassium 5.5 H (3.5-5.1) mmol/L Carbon Dioxide (22-30) mmol/L BUN (9-20) mg/dL Glucose (74-99) mg/dL POC Glucose (mg/dL) 253 H (70-110) mg/dL 05/01/25 05/01/25 05/01/25 Range/Units 05:27 05:27 05:33 WBC 19.97 H (4.50-10.00) 10*3/uL RBC 3.30 L (4.40-5.60) 10*6/uL Hgb 9.2 L (13.0-17.0) g/dL Hct 32.0 L (39.6-50.0) % MCHC 28.8 L (32.0-37.0) g/dL MPV 9.2 L (9.5-12.2) fL Immature Gran # 0.50 H (0.00-0.04) 10*3/uL Neutrophils # 18.21 H (1.80-7.70) 10*3/uL Lymphocytes # 0.33 L (0.90-5.00) 10*3/uL Eosinophils # 0.00 L (0.04-0.35) 10*3/uL ABG pH (7.35-7.45) ABG pCO2 (35-45) mmHg ABG pO2 (83-108) mmHg ABG HCO3 (21-25) mmol/L ABG Total CO2 (19-24) mmol/L ABG O2 Saturation (94-97) % Hemoglobin (13.0-17.5) gm/dL Potassium 5.3 H (3.5-5.1) mmol/L Carbon Dioxide 43 H* (22-30) mmol/L BUN 49 H (9-20) mg/dL Glucose 253 H (74-99) mg/dL POC Glucose (mg/dL) 267 H (70-110) mg/dL Microbiology - Last 24 Hours (Table) 04/27/25 23:46 Blood Culture - Preliminary Blood Assessment and Plan Plan: Acute cardiopulmonary arrest although we suspect that this is most likely pulmonary arrest followed by cardiac arrest and the patient was briefly resuscitated in the emergency department received a round of epinephrine and CPR with return of spontaneous circulation. The patient is intubated and subsequently the patient was found to be in acute hypercapnic respiratory failure. There is interval improvement in acid-base status. The peak of her pressure is improved although it remains elevated and the most recent peak airway pressure is around 35. The patient remains bronchospastic and wheezy. Sputum sample was positive for haemophilus influenza and Proteus and the patient is currently on IV Rocephin. Overall condition is unchanged over the past 24 hours. Chest x-ray remains unchanged and there is no clear asbestos or infiltrates. The patient remains on IV Rocephin. The patient remains on bronchodilators and steroids. Acute exacerbation of COPD, remains on bronchodilators and steroids. Sputum sample is positive for haemophilus and Proteus and the patient is currently on IV Rocephin. The patient is also on bronchodilators and steroids. We are allowing permissive hypercapnia. Acute hypercapnic respiratory failure essentially due to COPD exacerbation. CT of the chest was negative. CT scan of the abdomen and pelvis showed a stable left flank hematoma. Left flank hematoma status post TAVR Hemodynamically stable. No interval drop in the hemoglobin levels, on examination, the hematoma remains unchanged and stable Advanced COPD with chronic hypoxic respiratory failure, O2 dependent with severe obstructive limitation. The patient has been prednisone dependent 15 mg of prednisone on daily basis in addition to oxygen and he continues to smoke on and off on outpatient basis according to the family. Obstructive sleep apnea, maintained on CPAP therapy on outpatient basis Lactic acidosis Mild troponin leak, likely type II myocardial ischemia post cardiopulmonary arrest Left flank hematoma post TAVR Symptomatic severe aortic stenosis post TAVR on 04/15/2025 PAD with history of left femoral artery occlusion Hypertension Hyperlipidemia Type 2 diabetes mellitus Abnormal LFTs, transaminitis. The LFTs have been improving. Will obtain follow-up levels in AM. Hyperkalemia, likely related to acidosis. Patient was given low, and subsequent potassium level is now at 5.7. The patient was also given insulin and calcium gluconate. Plan Keep the patient intubated on a mechanical ventilator. Not ready for any further weaning Diamox 500 mg IV every 12 hours x 2 Will monitor acidosis and will obtain a follow-up blood gas Keep the patient sedated with propofol and redu give the patient a sedation holiday and assess mental status. DuoNeb nebulizer treatments [id number] Perforomist and Pulmicort nebulized treatments twice a day IV Solu-Medrol 60 mg every 6 hours Empiric antibiotic coverage with IV Rocephin Utilize norepinephrine if needed to maintain mean atrial pressure above 65, currently off pressors for now IV Protonix IV fluids are currently at KVO Heparin subcu Lovenox 40 mg subcu for DVT prophylaxis echocardiogram from 04/16/2025 showed normal LV, TAVR noted with a mean gradient of 15 mmHg Monitor blood gases Monitor left flank hematoma Monitor LFTs, improving and repeat levels will be obtained for tomorrow. stop Lipitor CAT scan of the abdomen showed no acute abnormalities in the patient's hematoma had been essentially stable. Hemoglobin remained stable Not ready for weaning for now. Continue enteral feeding for tissue support and the patient is on vital HP Critical care evaluation This evaluation was done and 35 minutes. Had a like discussion with the family and updated the family on his condition. Time with Patient: Greater than 30
[2025-05-01 17:40] LABS: Glucose,Whole Blood 231 mg/dL (70-110)
--- NOTE | 2025-05-01 17:49 | XR ---
EXAMINATION TYPE: XR chest 1V portable DATE OF EXAM: 05/01/2025 5:43 PM COMPARISON: Chest radiograph 05/01/2025. CLINICAL INDICATION: Male, 64 years old with history of OGT Placement; [facility] TECHNIQUE: XR chest 1V portable Frontal view of the chest. FINDINGS: Lungs/Pleura: Interstitial opacities in the small right pleural effusion. Left costophrenic sulcus is outside the field of view due to suboptimal patient positioning. No pneumothorax. Pulmonary vascularity: Unremarkable. Heart/mediastinum: Cardiac silhouette stable. TAVR in place. Musculoskeletal: No acute osseous pathology. Other findings: None Lines/Tubes: Endotracheal tube terminates 9.7 cm above the yakelin. Enteric tube courses below the left hemidiaphra gm with distal sidehole overlying the proximal gastric lumen. IMPRESSION: 1. Similar interstitial opacities and new small right pleural effusion. 2. Support devices as above. [facility], , 05/01/2025 5:47 PM
[2025-05-01 20:10] LABS: Glucose,Whole Blood 171 mg/dL (70-110)
--- NOTE | 2025-05-01 22:00 | XR ---
EXAMINATION TYPE: XR chest 1V DATE OF EXAM: 05/01/2025 9:52 PM COMPARISON: Prior same-day chest radiograph from CLINICAL INDICATION: Male, 64 years old with history of tube placement; [facility] TECHNIQUE: XR chest 1V Frontal view of the chest. FINDINGS: Lungs/Pleura: Persistent interstitial opacities and small right pleural effusion. Pulmonary vascularity: Unremarkable. Heart/mediastinum: Cardiomediastinal silhouette is unremarkable. TAVR. Musculoskeletal: No acute osseous pathology. Other findings: None Lines/Tubes: Enteric tube in stable positioning. Left-sided PICC line catheter with distal catheter tip terminatin g in the region of the distal SVC. Endotracheal tube high in the thoracic trachea approximately 13.5 cm from the yakelin. IMPRESSION: Endotracheal tube now terminates approximately 13.6 cm above the yakelin. [facility], , 05/01/2025 9:58 PM
[2025-05-01 22:55] LABS: Glucose,Whole Blood 143 mg/dL (70-110)
[2025-05-02 05:03] LABS: ABG PH 7.35 (7.35-7.45); ABG PO2 86 mmHg (83-108); ABG TCO2 45 mmol/L (19-24)
[2025-05-02 05:06] LABS: ABG PCO2 78 mmHg (35-45)
[2025-05-02 05:07] LABS: ABG HCO3 43 mmol/L (21-25); Allen Test Performed? aline
[2025-05-02 06:07] LABS: Basophils # (A) 0.02 10*3/uL (0.00-0.10); Basophils % (A) 0.1 %; Eosinophils # (A) 0.00 10*3/uL (0.04-0.35); Eosinophils % (A) 0.0 %; HCT 32.3 % (39.6-50.0); HGB 9.3 g/dL (13.0-17.0); Lymphocytes # (A) 0.47 10*3/uL (0.90-5.00); Lymphocytes % (A) 2.9 %; MCH 28.1 pg (27.0-32.0); MCHC 28.8 g/dL (32.0-37.0); MCV 97.6 fL (80.0-97.0); Monocytes # (A) 0.96 10*3/uL (0.20-1.00); Monocytes % (A) 6.0 %; Neutrophils # (A) 14.56 10*3/uL (1.80-7.70); Neutrophils % (A) 90.3 %; Platelet Count 286 10*3/uL (140-440); RBC 3.31 10*6/uL (4.40-5.60); RDW 15.2 % (11.5-14.5); WBC 16.13 10*3/uL (4.50-10.00)
[2025-05-02 06:21] LABS: ALT 468 U/L (4-49); AST 65 U/L (17-59); African American GFR (CKD) 89 (>60 ml/min/1.73 sqM); Albumin 3.0 g/dL (3.5-5.0); Alkaline Phosphatase 92 U/L (38-126); Blood Urea Nitrogen 50 mg/dL (9-20); Calcium 8.9 mg/dL (8.4-10.2); Chloride 106 mmol/L (98-107); Glucose 274 mg/dL (74-99); Non-African American GFR(CKD) 77 (>60 ml/min/1.73 sqM); Potassium 5.0 mmol/L (3.5-5.1); Sodium 151 mmol/L (137-145); Total Protein 5.4 g/dL (6.3-8.2)
[2025-05-02 06:27] LABS: Anion Gap 0 mmol/L
[2025-05-02 06:45] LABS: Carbon Dioxide 45 mmol/L (22-30)
[2025-05-02 06:54] LABS: Glucose,Whole Blood 293 mg/dL (70-110)
--- NOTE | 2025-05-02 07:19 | XR ---
EXAMINATION TYPE: XR chest 1V DATE OF EXAM: 05/02/2025 4:52 AM COMPARISON: Chest radiograph from one day prior. CLINICAL INDICATION: Male, 64 years old with history of intubated; [facility] TECHNIQUE: XR chest 1V Frontal view of the chest. FINDINGS: Lungs/Pleura: Scattered subtle reticular and hazy opacities. No evidence of pneumothorax, focal conso lidation or pleural effusion. Pulmonary vascularity: Unremarkable. Heart/mediastinum: Cardiomediastinal silhouette is unremarkable. Musculoskeletal: No acute osseous pathology. Other findings: None Lines/Tubes: Endotracheal tube with distal tip 7.2 cm above the yakelin. Nasogastric tube with its distal tip and side-port projecting under the diaphragm. IMPRESSION: Scattered reticular opacities are unchanged [facility], , 05/02/2025 7:17 AM
[2025-05-02] MEDS ORDERED: VANCOMYCIN IV PER PHARMACY 1 EACH MISC MISCELLANE PRN (08:20)
[2025-05-02 09:41] LABS: Glucose,Whole Blood 262 mg/dL (70-110)
[2025-05-02] MEDS: ACETAMINOPHEN IV (For NPO) 1,000 MG in EMPTY BAG 1 BAG IVPB ONE (09:45)
[2025-05-02] MEDS: INSULIN LISPRO (HumaLOG) 100 UNIT/ML 10 mL VL SQ SCH (09:48)
[2025-05-02] MEDS: CEFEPIME 2 GM in SODIUM CHLORIDE 0.9% 100 ML IVPB SCH ×2 (09:49→18:10)
[2025-05-02] MEDS: VANCOMYCIN 1,500 MG in SODIUM CHLORIDE 0.9% 500 ML 500 ML IVPB SCH (09:49)
[2025-05-02 11:46] LABS: Glucose,Whole Blood 244 mg/dL (70-110)
--- NOTE | 2025-05-02 14:06 | P.PN ---
Subjective Progress Note Date: 05/02/25 A 64-year-old male patient presented to the emergency department with acute respiratory failure. The patient was unresponsive and in respiratory arrest. CPR was immediately initiated. The patient was given a round of epinephrine and CPR and the patient was intubated in the emergency department. He had return of spontaneous circulation. I reviewed the initial EKG post resuscitation and the patient was in normal sinus rhythm with a right bundle branch block pattern. The initial rhythm at the time of his cardiac arrest is not known. Nevertheless, I suspect that the patient had an acute hypoxic/hypercapnic respiratory failure as the patient postintubation was actively bronchospastic and wheezy. I saw the patient immediately post intubation and the patient had very limited air entry bilaterally, active bronchospastic and wheezy and while being on the mechanical ventilator, the patient's peak airway pressure was 50 and the blood gas showed a pH of 7.0 with a PCO2 more than 98 and a pO2 of 232 and this was done at that appointment for 50, rate of 20, FiO2 100% with a PEEP of 5. The chest x-ray was reviewed and it showed a small left-sided pleural effusion. The patient underwent a CT of the chest and a CAT scan of the abdomen. CT of the chest showed no evidence of any pulmonary embolism and the patient had no filling defects. No mediastinal lymphadenopathy or any other acute cardiopulmonary abnormalities. Lungs were essentially clear. CAT scan of the abdomen and pelvis showed left flank hematoma present since 04/22/2025 and this occurred following a TAVR procedure. The patient had a low-density lesion along the left lateral hemipelvis with some mild stranding measuring 7.7 x 4.5 x 13.4 cm in size, likely presenting an intramuscular seroma without any free fluid in the pelvis. Findings were essentially similar compared to the earlier CAT scan on 04/22/2025. No other abnormalities noted. CAT scan of the brain showed no acute intracranial abnormalities. Blood work showed a white cell count of 18.4 with a hemoglobin 9.5 and a platelet count of 516. Normal coagulation profile. K levels of 5.6, bicarb is at 33 with a BUN of 21 and creatinine 0.8. Lactic acid level was at 3.1. Troponins were 0.1 and 0.1 respectively x 2 with a proBNP level of 1000. BUN is 21 with a creatinine of 0.8 and UA was also noted with 4 WBCs. Based on his ongoing hypoxic respiratory failure, high airway pressures and severe bronchospasm wheezing, the patient was started on DuoNeb nebulizer treatments [id number], IV Solu-Medrol and patient was kept on propofol and the patient was also started on paralytics with Nimbex. IV fluids are currently running at the rate of 100 cc of normal saline and the patient is also on low- dose norepinephrine for hemodynamic support. 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 04/28/2025, the patient is being seen for a follow-up. The patient remains intubated on a mechanical ventilator. This morning, the patient sedated with propofol running at 50 mcg/kg/min and Nimbex at 1 mcg/kg/min. Is adequately sedated and paralyzed. He remains on mechanical ventilator, assist-control mode at rate of 30, tidal volume of 400, FiO2 50% with a PEEP of 5. Peak airway pressure is 33. The blood gas showed a pH of 7.24 with a PCO2 of 76 and PO2 of 82. Chest x-ray shows no acute abnormalities. Orotracheal tube was pushed in and it seems to be in satisfactory position. He has some interstitial opacities bilaterally along with background COPD. NG tube is not clearly seen. The patient is on normal saline at rate of 100 cc an hour. Urine output is in order of 40 cc an hour. Fluid balance is +712 cc over the past 24 hours. He is on low-dose norepinephrine running at 0.01 mcg/kg/min. The patient has been COPD and the patient is oxygen dependent and steroid-dependent outpatient basis the patient has been taking 50 mg of prednisone on an outpatient basis. WBC count is at 19 with a hemoglobin 10.2 and a platelet count of 410. Sodium is at 136, potassium is at 5.2, bicarb is at 34, BUN is 40 with a creatinine of 1.1. LFTs are abnormal with an AST of 1110 [place] [address] and a normal alkaline phosphatase. Blood sugar slightly elevated due to steroid use and the patient is on insulin sliding scale coverage. The patient is also on empiric antibiotic coverage with IV Zosyn. The left flank and abdominal hematoma remains unchanged. On 04/29/2025, the patient remains intubated on the mechanical ventilator. The patient is on propofol running at 50 mcg/kg/min and the patient is on Nimbex running at 2 mcg/kg/min. The patient is adequately sedated and paralyzed. This morning, he is on assist-control mode at rate of 30, tidal volume of 400, FiO2 50% with a PEEP of 5. The blood gas showed a pH of 7.28 with a PCO2 of 75 and PO2 of 96. The peak airway pressure is 34. Chest x-ray shows no acute abnormalities. Her procalcitonin level was at 0.97. The patient remains on vital high-protein at rate of 40 cc an hour. Fluid balance is +1.1 L over the past 24 hours and the patient is on normal Saint rate of 50 cc an hour. Echocardiogram showed ejection fraction of 65%, dilatation of the RV and the pulmonary artery pressure of around 55. The white cell count of 16.6 with a hemoglobin 9.8 and a platelet count of 395. Sodium is at 135, potassium is at 5.1, bicarbonate 37, BUN 60 with a creatinine of 1.08. AST is 412. ALT is at 1 091. Total protein is at 5.7 with an albumin of 3.3. Remains on DuoNeb neb treatment [id number]. Remains on a combination of Perforomist and Pulmicort neb treatments twice a day and IV Solu-Medrol 60 mg every 6 hours. Remains on empiric antibiotic coverage with IV Rocephin. Remains on IV Solu- Medrol. Patient is off pressors for now. CAT scan of the abdomen and pelvis that was done at time of admission showed no significant intra-abdominal abnormalities. Left flank hematoma was essentially unchanged. The patient continues to have a stable hemoglobin and there is no significant drop in hemoglobin over the past 24 hours. He is post TAVR. He has an underlying rhythm that is sinus and the patient has a bundle branch block pattern. On 04/30/2025, the patient is being seen for a follow-up. Remains intubated on mechanical ventilator. The patient remains on propofol which is running at 50 mcg/kg/min and the patient is currently off paralytics. The morning blood gases showed a pH of 7.32 with a PCO2 of 80 and PO2 of 77. This was done on assist- control mode with a rate of 70, tidal volume of 400, FiO2 50% and PEEP of 5. Chest x-ray shows no acute pulmonary infiltrates. A drop in the respiratory rate was down to 20 and FiO2 was dropped down to 40%. Subsequent blood gas showed a pH of 7.23 with a PCO2 of 94 and PO2 of 101. The patient was riding the mechanical ventilator and the patient is deeply sedated. Will gradually wean down his propofol. Meanwhile, morning blood draw showed a elevated potassium level and the patient had hyperkalemia. Potassium was at 6. The patient was given calcium gluconate, 10 units of insulin and Lokelma 10 mg. Subsequent potassium level improved. The the white cell count is at 19.3 with a hemoglobin 9.4 and a platelet count of 338. The sodium is at 139, most recent potassium level is down to 5.7, the serum bicarb is at 40, chloride is 96. The peak airway pressure is around 35. The patient is on vital high-protein at rate of 55 cc an hour. The patient is also on Lantus insulin for blood sugar control and the patient receiving Lantus 25 units and NovoLog 8 units 3 times daily and a sliding scale coverage. Remains on bronchodilators. Remains on steroids. Remains on Perforomist and Pulmicort nebulized treatments. Remains on empiric antibiotic coverage with IV Rocephin. Sputum sample is positive for Proteus m irabilis and haemophilus. On today's evaluation of 05/01/2025, the patient is being seen for a follow-up. The patient is off paralytics and the patient is currently on propofol running at 35 mcg/kg/min. The patient currently is on a mechanical ventilator assist- control mode at rate of 30, tidal volume of 400, FiO2 of 50% with a PEEP of 5. Patient has a pH of 7.33 with a PCO2 of 79 and PO2 of 80. Sputum positive for Proteus and haemophilus and the patient remains on IV Rocephin. Chest x-ray shows no evidence of pneumonia. Peak airway pressure is around 34. IV fluids are KVO. Fluid balance is -1.1 L. Cardiac rhythm is sinus. No pressors. The patient remains on vital protein at rate of 55 cc an hour. Remains on bronchodilators. Remains on IV Solu-Medrol. Remains on Lantus insulin 25 units along with NovoLog sliding scale coverage. Last flank and abdominal hematoma is unchanged extending to the scrotum. No significant swelling. No drop in the hemoglobin. The blood work from today shows a WBC count of 19.7, hemoglobin 9.2 and platelet count of 307. Serum bicarbonate is 43, sodium is 145, potassium is at 5.3, chloride is 99. 05/02/2025, the patient remains intubated on mechanical ventilator. The patient remains on propofol running at 25 mcg/kg/min. Chest x-ray shows pulm interstitial infiltrates bilaterally. The patient's sputum sample was positive for Proteus and haemophilus influenza. The patient was treated with IV Rocephin. Nevertheless, this morning, the patient noted to be febrile and failed the fever workup will be done. Will repeat a sputum analysis. Will check a blood cultures. Antibiotics will be modified and the patient will be taken off Rocephin and started on IV cefepime. Patient will be also started on vancomycin pending further cultures. He is on assist-control mode of mechanical ventilation at rate of 30, tidal volume 400, FiO2 50% with a PEEP of 5. pH is at 7.35 with a PCO2 of 78 and PO2 of 86. Peak airway pressure is around 30. Fluid balance is -1.1 L over the past 24 hours. The patient remains on vital high-protein at rate of 71 cc an hour. Lantus for blood sugar control 30 units and the cardiac rhythm is sinus. IV fluids are currently at KVO. Rest of the blood work shows a white cell count of 16, hemoglobin 9.3 and a platelet count of 286. Sodium levels at 151, potassium level is at 5, bicarb is at 45, BUN 50 and creatinine is at 1.03. Blood sugars are 244. LFTs are improving with a drop in the AST and ALT level. COVID-19 testing has been negative. Procalcitonin level is at 0.97. Objective - Vital Signs Vital signs: Vital Signs Temp 102 F H 05/02/25 07:00 Pulse 98 05/02/25 08:11 Resp 30 H 05/02/25 07:00 BP 132/76 05/02/25 07:00 Pulse Ox 96 05/02/25 07:00 FiO2 50 05/02/25 07:47 Intake & Output 05/01/25 05/02/25 05/02/25 18:59 06:59 18:59 Intake Total 0431.040 3270.000 274.501 Output Total 1610 1625 300 Balance -479.047 -451.000 -25.499 Weight 96.6 kg 95 kg Intake: IV 188 156 26 Pressure Bag 33 36 6 Sodium Chloride 0.9% 1, 105 120 20 000 ml @ 10 mls/hr IV . Q24H JÚNIOR Rx#:[id number] cefTRIAXone 2 gm In 50 Sodium Chloride 0.9% 50 ml @ 100 mls/hr IVPB Q24HR JÚNIOR Rx#:[id number] Intake, IV Titration 242.953 100.000 76.501 Amount propofoL 1,000 mg In 242.953 100.000 76.501 Empty Bag 1 bag @ 15 MCG/ KG/MIN 8.124 mls/hr IV . [id number] JÚNIOR Rx#:[id number] Tube Feeding 610 828 142 Other 90 90 30 Output: Urine 1610 1625 300 Other: Voiding Method Indwelling Catheter Indwelling Catheter ABP, PAP, CO, CI - Last Documented Arterial Blood Pressure 133/57 - Exam The patient appeared well nourished and normally developed. Vital signs as docu mented. The patient is currently intubated on mechanical ventilator. Orotracheal and gastric tube are both in place. Head exam is unremarkable. No scleral icterus or corneal arcus noted. The patient remains sedated on propofol. Neck is without jugular venous distension, thyromegaly, or carotid bruits. Carotid upstrokes are brisk bilaterally. Lungs show mild diminished breath sounds bilaterally, air entry is quite limited and the patient has prolongation of isolation phase of breathing and ongoing bronchospasm wheezing. Cardiac exam reveals the PMI to be normally sized and situated. Rhythm is regular. First and second heart sounds normal. No murmurs, rubs or gallops. Abdominal exam reveals normal bowel sounds, no masses, no organomegaly and no aortic enlargement. Lower abdominal hematoma extending to left flank Extremities are nonedematous and both femoral and pedal pulses are diminished bilaterally Examination of the skin revealed no evidence of significant rashes, suspicious appearing nevi or other concerning lesions. Neurologically, the patient is sedated, the patient was given a sedation holiday. The patient became asynchronous with the mechanical ventilator and he was able to move all 4 extremities and his neurologic exam is nonfocal. Based on that, the patient was placed back on propofol. - Labs CBC & Chem 7: 05/02/25 05:00 05/02/25 05:00 Labs: Abnormal Lab Results - Last 24 Hours (Table) 05/01/25 05/01/25 05/01/25 Range/Units 11:16 17:39 20:10 WBC (4.50-10.00) 10*3/uL RBC (4.40-5.60) 10*6/uL Hgb (13.0-17.0) g/dL Hct (39.6-50.0) % MCV (80.0-97.0) fL MCHC (32.0-37.0) g/dL Immature Gran # (0.00-0.04) 10*3/uL Neutrophils # (1.80-7.70) 10*3/uL Lymphocytes # (0.90-5.00) 10*3/uL Eosinophils # (0.04-0.35) 10*3/uL ABG pCO2 (35-45) mmHg ABG HCO3 (21-25) mmol/L ABG Total CO2 (19-24) mmol/L Hemoglobin (13.0-17.5) gm/dL Sodium (137-145) mmol/L Carbon Dioxide (22-30) mmol/L BUN (9-20) mg/dL Glucose (74-99) mg/dL POC Glucose (mg/dL) 259 H 231 H 171 H (70-110) mg/dL AST (17-59) U/L ALT (4-49) U/L Total Protein (6.3-8.2) g/dL Albumin (3.5-5.0) g/dL 05/01/25 05/02/25 05/02/25 Range/Units 22:54 04:56 05:00 WBC (4.50-10.00) 10*3/uL RBC (4.40-5.60) 10*6/uL Hgb (13.0-17.0) g/dL Hct (39.6-50.0) % MCV (80.0-97.0) fL MCHC (32.0-37.0) g/dL Immature Gran # (0.00-0.04) 10*3/uL Neutrophils # (1.80-7.70) 10*3/uL Lymphocytes # (0.90-5.00) 10*3/uL Eosinophils # (0.04-0.35) 10*3/uL ABG pCO2 78 H* (35-45) mmHg ABG HCO3 43 H* (21-25) mmol/L ABG Total CO2 45 H (19-24) mmol/L Hemoglobin 9.7 L (13.0-17.5) gm/dL Sodium 151 H (137-145) mmol/L Carbon Dioxide 45 H* (22-30) mmol/L BUN 50 H (9-20) mg/dL Glucose 274 H (74-99) mg/dL POC Glucose (mg/dL) 143 H (70-110) mg/dL AST 65 H (17-59) U/L ALT 468 H (4-49) U/L Total Protein 5.4 L (6.3-8.2) g/dL Albumin 3.0 L (3.5-5.0) g/dL 05/02/25 05/02/25 Range/Units 05:00 06:53 WBC 16.13 H (4.50-10.00) 10*3/uL RBC 3.31 L (4.40-5.60) 10*6/uL Hgb 9.3 L (13.0-17.0) g/dL Hct 32.3 L (39.6-50.0) % MCV 97.6 H (80.0-97.0) fL MCHC 28.8 L (32.0-37.0) g/dL Immature Gran # 0.12 H (0.00-0.04) 10*3/uL Neutrophils # 14.56 H (1.80-7.70) 10*3/uL Lymphocytes # 0.47 L (0.90-5.00) 10*3/uL Eosinophils # 0.00 L (0.04-0.35) 10*3/uL ABG pCO2 (35-45) mmHg ABG HCO3 (21-25) mmol/L ABG Total CO2 (19-24) mmol/L Hemoglobin (13.0-17.5) gm/dL Sodium (137-145) mmol/L Carbon Dioxide (22-30) mmol/L BUN (9-20) mg/dL Glucose (74-99) mg/dL POC Glucose (mg/dL) 293 H (70-110) mg/dL AST (17-59) U/L ALT (4-49) U/L Total Protein (6.3-8.2) g/dL Albumin (3.5-5.0) g/dL Microbiology - Last 24 Hours (Table) 04/27/25 23:46 Blood Culture - Preliminary Blood Assessment and Plan Plan: Acute cardiopulmonary arrest although we suspect that this is most likely pulmonary arrest followed by cardiac arrest and the patient was briefly resus citated in the emergency department received a round of epinephrine and CPR with return of spontaneous circulation. The patient is intubated and subsequently the patient was found to be in acute hypercapnic respiratory failure. There is interval improvement in acid-base status. The most recent blood gas shows improvement in the acid-base status. The patient has interstitial infiltrates bilaterally. Sputum sample was positive for haemophilus influenza and Proteus. The patient was on IV Rocephin. Based on ongoing fever, further antibiotic adjustments will be done. The patient will be taken off the Rocephin and started on a combination of vancomycin and cefepime. Acute exacerbation of COPD, remains on bronchodilators and steroids. Sputum sample is positive for haemophilus and Proteus, rule out underlying pneumonia Fever under investigation Acute hypercapnic respiratory failure essentially due to COPD exacerbation. CT of the chest was negative. CT scan of the abdomen and pelvis showed a stable left flank hematoma. Left flank hematoma status post TAVR Hemodynamically stable. No interval drop in the hemoglobin levels, on examination, the hematoma remains unchanged and s table Advanced COPD with chronic hypoxic respiratory failure, O2 dependent with severe obstructive limitation. The patient has been prednisone dependent 15 mg of prednisone on daily basis in addition to oxygen and he continues to smoke on and off on outpatient basis according to the family. Obstructive sleep apnea, maintained on CPAP therapy on outpatient basis Lactic acidosis, recovered Hyperchloremic hypernatremia Mild troponin leak, likely type II myocardial ischemia post cardiopulmonary arrest Left flank hematoma post TAVR Symptomatic severe aortic stenosis post TAVR on 04/15/2025 PAD with history of left femoral artery occlusion Hypertension Hyperlipidemia Type 2 diabetes mellitus Abnormal LFTs, transaminitis. The LFTs have been improving. Hyperkalemia, l treated and the potassium level is normalized Plan Keep the patient intubated on a mechanical ventilator. Not ready for any further weaning Keep the patient sedated with propofol and patient will receive daily sedation holidays DuoNeb nebulizer treatments [id number] Perforomist and Pulmicort nebulized treatments twice a day IV Solu-Medrol 60 mg every 6 hours Empiric antibiotic coverage with IV but the combination of cefepime and vancomycin Repeat sputum analysis with culture and blood cultures Utilize norepinephrine if needed to maintain mean atrial pressure above 65, currently off pressors for now IV Protonix IV fluids are currently at KVO Heparin subcu Lovenox 40 mg subcu for DVT prophylaxis echocardiogram from 04/16/2025 showed normal LV, TAVR noted with a mean gradient of 15 mmHg Monitor blood gases Monitor left flank hematoma Monitor LFTs, improving and repeat levels will be obtained for tomorrow. stop Lipitor CAT scan of the abdomen showed no acute abnormalities in the patient's hematoma had been essentially stable. Hemoglobin remained stable Start the patient on free water through OG. Monitor sodium level. No need for diuretics at this point. Not ready for weaning for now. Continue enteral feeding for tissue support and the patient is on vital HP Lantus insulin 30 units daily and sliding scale coverage Critical care evaluation This evaluation was done and 35 minutes. Had a like discussion with the family and updated the family on his condition. Yesterday Time with Patient: Greater than 30
--- NOTE | 2025-05-02 15:11 | P.PN ---
Subjective Progress Note Date: 05/02/25 64 year old M with PMH of COPD on 2L home O2, DM, HTN, GERD, HLD presents to the ED for SOB. History is obtained from his at bedside. Patient recently underwent TAVR on 04/15. Surgery was complicated with left flank hematoma. He had been doing well since his surgery. Over the past day, he reported increased shortness of breath not relieved with nebulized treatments. This prompted him to come to the ED. In the ED, he was noted to have agonal breathing and subsequently lost his pulse. MARLEE LOPEZ was called. He underwent high quality chest compressions, received 1 round of Epinephrine and intubated by Dr. Glass. ROSC was achieved. Vitals on arrival: BP 184/116, HR 105, RR 18, 98% on RA. Labs: WBC 18.42, RBC 3.95, Hg 11.5, Hct 36.9, Plt 516. INR 1.2. ABG pH 7, pCO2 > 98. K 5.6, Cl 93, bicarb 33, BUN 21, glu 117, T. Bili 2.8, AST 374, ALT 321. Trop 0.107. BNP 1030. UA neg LE or nitrite. EKG showed sinus tachycardia with RBBB CT brain no acute process CXR small L pleural effusion CTA chest no PE CT AP pending Patient was admitted to ICU for further workup and management. 04/28 Patient was seen and examined. Intubated and sedated. Paralytic includes Nimbex at 1 mcg/kg/min. Sedated with Propofol at 50 mcg/kg/min. On NS at 50 cc/hr. Started on Levophed at 0.01 mcg/kg/min as well. CBC and CMP significant for WBC 19.71, RBC 3.57, Hg 10.2, Hct 33.3, Na 136, K 5.2, Cl 95, bicarb 34, BUN 40, glu 217, AST 1110, ALT 1317, total protein 6.1. ABG pH 7.25, pCO2 77, pO2 83, FiO2 50. Trop 0.14, 0.214. POC glucose 129-236. Sputum Cx GNB. CXR shows bilateral interstitial markings. Echo shows EF 65-70% with mod-severe pulm HTN. CT AP shows stable hematoma. 04/29 Patient was seen and examined. Intubated and sedated. Off Nimbex and Levophed. Sedated with Propofol at 50 mcg/kg/min. On NS at 10 cc/hr. Antibiotics include Zosyn 3.75g IV TID (D2). CBC and CMP significant for WBC 16.65, RBC 3.47, Hg 9.8, Hct 32, Na 135, Cl 93, bicarb 37, BUN 60, glu 306, AST 412, ALT 1091, alb 3.3. ABG pH 7.29, pCO2 75, pO2 96, FiO2 50. Procal 0.97. POC glucose 236-354 over the past 24H. Sputum Cx Proteus and H. influenzae. CXR shows bilateral interstitial markings. 04/30 Patient was seen and examined. Intubated and sedated. Sedated with Propofol at 40 mcg/kg/min. On NS at 10 cc/hr. Antibiotics include Rocephin 2g IV QD (D2). CBC and CMP significant for WBC 19.34, RBC 3.31, Hg 9.4, Hct 31.2, K 6, Cl 96, bicarb 40, BUN 61, glu 376. ABG pH 7.23, pCO2 94, pO2 101, FiO2 60. POC glucose 212-379 over the past 24H. Sputum Cx Proteus and H. influenzae. CXR shows bilateral interstitial markings. 05/01 Patient was seen and examined. Intubated and sedated. Sedated with Propofol at 25 mcg/kg/min. On NS at 10 cc/hr. Antibiotics include Rocephin 2g IV QD (D3). Tmax 102.2F. CBC and CMP significant for WBC 19.97, RBC 3.30, Hg 9.2, Hct 32, K 5.3, bicarb 43, BUN 49, glu 253. ABG pH 7.33, pCO2 79, pO2 88, FiO2 50. POC glucose 253-299 over the past 24H. Sputum Cx Proteus and H. influenzae. CXR shows bilateral interstitial markings. 05/02 Patient was seen and examined. Intubated and sedated. Sedated with Propofol at 25 mcg/kg/min. On NS at 10 cc/hr. Rocephin switched to Vancomycin and Cefepime given persistent fever. Tmax 102.3F. CBC and CMP significant for WBC 16.13, RBC 3.31, Hg 9.3, Hct 32.3, MCV 97.6, Na 151, bicarb 45, BUN 50, glu 274. POC glucose 143-293 over the past 24H. CXR shows bilateral interstitial markings. General: non toxic, no distress, Intubated Derm: warm, dry Head: atraumatic, normocephalic, symmetric Eyes: EOMI, no lid lag, anicteric sclera Mouth: no lip lesion, mucus membranes moist Cardiovascular: S1S2 tachy, no murmur Lungs: Decreased BS bilateral, no rhonchi, no rales , no accessory muscle use Ext: no gross muscle atrophy, 3+ LE pitting edema, no contractures Neuro: Intubated Psych: Intubated Based on my assessment of this patient, this patient meets a high complexity level of care. Fever with Sepsis: Initial Sputum Cx Proteus and H. influenzae. Not improving with Rocephin. Antibiotics escaladed to Vancomycin dosed per pharmacy and Cefepime 2g IV TID (D1). MRSA screen, BCx, Legionella Ag, COVID test ordered. Cardiac arrest likely secondary to COPD exacerbation: Duoneb QID scheduled and PRN SOB/wheezing. Pulmicort 1mg INH BID. Performist 20 mcg INH BID. Solumedrol 60 mg IV Q6H. Pulmonary, Cardiology and CT surgery on board. Acute on chronic hypoxic hypercapnic respiratory failure likely due to above: Status post Diamox. Left flank hematoma: CT AP shows stable left flank hematoma. Troponin elevation: Likely due to demand ischemia. ASA 81 mg PO QD. Simvastatin 80 mg PO QHS. Echo as above. Cardiology on board. DM with hyperglycemia: A1c 7.5. Lantus increased from 25 to 30 units QHS. Lispro increased from 8 to 10 units TID. Continue MISS with Accuchecks ACHS along with hypoglycemic precautions. Normocytic anemia with Thrombocytosis: Likely due to left flank hematoma. Monitor and trend. Hyperbilirubinemia with Transaminitis: Likely due to hypotension. Improving. Trend. Resolved: Hypotension, HyperK CODE STATUS: FULL CODE DVT Prophylaxis: SCD due to hematoma. GI Prophylaxis: Protonix IV Designated medical POA if patient is not able to make medical decisions for themselves: I have reviewed the following organizational consultant notes: Pulm. I have reviewed the results of the following tests: As above. I have ordered the following tests: As above. I have discussed the care of this patient with the following independent historian: OLIMPIA. I have independently interpreted the following test below: CXR I have discussed the management of this patient with the following physician: Objective - Vital Signs Vital signs: Vital Signs Temp 99.9 F H 05/02/25 12:00 Pulse 85 05/02/25 14:00 Resp 30 H 05/02/25 14:00 BP 143/77 05/02/25 14:00 Pulse Ox 95 05/02/25 14:00 FiO2 50 05/02/25 14:00 Intake & Output 05/01/25 05/02/25 05/02/25 18:59 06:59 18:59 Intake Total 9284.140 6771.000 861.533 Output Total 1610 1625 1015 Balance -479.047 -451.000 -153.467 Weight 96.6 kg 95 kg Intake: IV 188 156 104 Pressure Bag 33 36 24 Sodium Chloride 0.9% 1, 105 120 80 000 ml @ 10 mls/hr IV . Q24H [facility] Rx#:[id number] cefTRIAXone 2 gm In 50 Sodium Chloride 0.9% 50 ml @ 100 mls/hr IVPB Q24HR [facility] Rx#:[id number] Intake, IV Titration 242.953 100.000 129.533 Amount propofoL 1,000 mg In 242.953 100.000 129.533 Empty Bag 1 bag @ 15 MCG/ KG/MIN 8.124 mls/hr IV . [id number] J[facility] Rx#:[id number] Tube Feeding 610 828 568 Other 90 90 60 Output: Urine 1610 1625 1015 Other: Voiding Method Indwelling Catheter Indwelling Catheter Indwelling Catheter ABP, PAP, CO, CI - Last Documented Arterial Blood Pressure 119/55 - Labs CBC & Chem 7: 05/02/25 05:00 05/02/25 05:00 Labs: Abnormal Lab Results - Last 24 Hours (Table) 05/01/25 05/01/25 05/01/25 Range/Units 17:39 20:10 22:54 WBC (4.50-10.00) 10*3/uL RBC (4.40-5.60) 10*6/uL Hgb (13.0-17.0) g/dL Hct (39.6-50.0) % MCV (80.0-97.0) fL MCHC (32.0-37.0) g/dL Immature Gran # (0.00-0.04) 10*3/uL Neutrophils # (1.80-7.70) 10*3/uL Lymphocytes # (0.90-5.00) 10*3/uL Eosinophils # (0.04-0.35) 10*3/uL ABG pCO2 (35-45) mmHg ABG HCO3 (21-25) mmol/L ABG Total CO2 (19-24) mmol/L Hemoglobin (13.0-17.5) gm/dL Sodium (137-145) mmol/L Carbon Dioxide (22-30) mmol/L BUN (9-20) mg/dL Glucose (74-99) mg/dL POC Glucose (mg/dL) 231 H 171 H 143 H (70-110) mg/dL AST (17-59) U/L ALT (4-49) U/L Total Protein (6.3-8.2) g/dL Albumin (3.5-5.0) g/dL 05/02/25 05/02/25 05/02/25 Range/Units 04:56 05:00 05:00 WBC 16.13 H (4.50-10.00) 10*3/uL RBC 3.31 L (4.40-5.60) 10*6/uL Hgb 9.3 L (13.0-17.0) g/dL Hct 32.3 L (39.6-50.0) % MCV 97.6 H (80.0-97.0) fL MCHC 28.8 L (32.0-37.0) g/dL Immature Gran # 0.12 H (0.00-0.04) 10*3/uL Neutrophils # 14.56 H (1.80-7.70) 10*3/uL Lymphocytes # 0.47 L (0.90-5.00) 10*3/uL Eosinophils # 0.00 L (0.04-0.35) 10*3/uL ABG pCO2 78 H* (35-45) mmHg ABG HCO3 43 H* (21-25) mmol/L ABG Total CO2 45 H (19-24) mmol/L Hemoglobin 9.7 L (13.0-17.5) gm/dL Sodium 151 H (137-145) mmol/L Carbon Dioxide 45 H* (22-30) mmol/L BUN 50 H (9-20) mg/dL Glucose 274 H (74-99) mg/dL POC Glucose (mg/dL) (70-110) mg/dL AST 65 H (17-59) U/L ALT 468 H (4-49) U/L Total Protein 5.4 L (6.3-8.2) g/dL Albumin 3.0 L (3.5-5.0) g/dL 05/02/25 05/02/25 05/02/25 Range/Units 06:53 09:39 11:45 WBC (4.50-10.00) 10*3/uL RBC (4.40-5.60) 10*6/uL Hgb (13.0-17.0) g/dL Hct (39.6-50.0) % MCV (80.0-97.0) fL MCHC (32.0-37.0) g/dL Immature Gran # (0.00-0.04) 10*3/uL Neutrophils # (1.80-7.70) 10*3/uL Lymphocytes # (0.90-5.00) 10*3/uL Eosinophils # (0.04-0.35) 10*3/uL ABG pCO2 (35-45) mmHg ABG HCO3 (21-25) mmol/L ABG Total CO2 (19-24) mmol/L Hemoglobin (13.0-17.5) gm/dL Sodium (137-145) mmol/L Carbon Dioxide (22-30) mmol/L BUN (9-20) mg/dL Glucose (74-99) mg/dL POC Glucose (mg/dL) 293 H 262 H 244 H (70-110) mg/dL AST (17-59) U/L ALT (4-49) U/L Total Protein (6.3-8.2) g/dL Albumin (3.5-5.0) g/dL Microbiology - Last 24 Hours (Table) 04/27/25 23:46 Blood Culture - Preliminary Blood
[2025-05-02 16:39] LABS: Magnesium 3.0 mg/dL (1.6-2.3); Potassium 5.3 mmol/L (3.5-5.1)
[2025-05-02 17:23] LABS: Glucose,Whole Blood 228 mg/dL (70-110)
[2025-05-02] MEDS: INSULIN GLARGINE (LANTUS) 100 UNIT/ML SYR SQ SCH (21:10)
[2025-05-02 23:41] LABS: Glucose,Whole Blood 258 mg/dL (70-110)
[2025-05-03 05:14] LABS: Glucose,Whole Blood 251 mg/dL (70-110)
[2025-05-03 06:14] LABS: ABG PCO2 70 mmHg (35-45); ABG PH 7.38 (7.35-7.45); ABG PO2 66 mmHg (83-108); ABG TCO2 44 mmol/L (19-24); Allen Test Performed? Yes
[2025-05-03 06:23] LABS: ABG HCO3 42 mmol/L (21-25)
[2025-05-03 06:44] LABS: Basophils # (A) 0.01 10*3/uL (0.00-0.10); Basophils % (A) 0.1 %; Eosinophils # (A) 0.00 10*3/uL (0.04-0.35); Eosinophils % (A) 0.0 %; HCT 32.9 % (39.6-50.0); HGB 9.5 g/dL (13.0-17.0); Lymphocytes # (A) 0.45 10*3/uL (0.90-5.00); Lymphocytes % (A) 3.4 %; MCH 28.0 pg (27.0-32.0); MCHC 28.9 g/dL (32.0-37.0); MCV 97.1 fL (80.0-97.0); Monocytes # (A) 0.76 10*3/uL (0.20-1.00); Monocytes % (A) 5.7 %; Neutrophils # (A) 11.99 10*3/uL (1.80-7.70); Neutrophils % (A) 90.0 %; Platelet Count 275 10*3/uL (140-440); RBC 3.39 10*6/uL (4.40-5.60); RDW 15.2 % (11.5-14.5); WBC 13.32 10*3/uL (4.50-10.00)
--- NOTE | 2025-05-03 06:55 | XR ---
EXAMINATION TYPE: XR chest 1V DATE OF EXAM: 05/03/2025 5:15 AM COMPARISON: Chest radiograph from one day prior. CLINICAL INDICATION: Male, 64 years old with history of intubated; [facility] TECHNIQUE: XR chest 1V Frontal view of the chest. FINDINGS: Lungs/Pleura: Scattered subtle reticular and hazy opacities. No evidence of pneumothorax, focal conso lidation or pleural effusion. Pulmonary vascularity: Unremarkable. Heart/mediastinum: Cardiomediastinal silhouette is unremarkable. Post aortic valve repair changes. Musculoskeletal: No acute osseous pathology. Other findings: None Lines/Tubes: Endotracheal tube with distal tip 7.6 cm above the yakelin. Nasogastric tube with its distal tip and side-port projecting under the diaphragm. Left internal jugular central venous catheter with distal tip at the cavoatrial junction. IMPRESSION: Similar Scattered reticular opacities are unchanged [facility] Dieter Moulton, , 05/03/2025 6:53 AM
[2025-05-03 06:58] LABS: African American GFR (CKD) >90 (>60 ml/min/1.73 sqM); Blood Urea Nitrogen 51 mg/dL (9-20); Calcium 9.0 mg/dL (8.4-10.2); Chloride 111 mmol/L (98-107); Glucose 288 mg/dL (74-99); Non-African American GFR(CKD) >90 (>60 ml/min/1.73 sqM); Potassium 4.9 mmol/L (3.5-5.1); Sodium 155 mmol/L (137-145)
[2025-05-03 07:04] LABS: Anion Gap 2 mmol/L
[2025-05-03 07:09] LABS: Carbon Dioxide 42 mmol/L (22-30)
[2025-05-03] MEDS ORDERED: AMIODARONE 360 MG in DEXTROSE 5% IN WATER 200 ML IV ONE (09:05)
[2025-05-03] MEDS ORDERED: DEXTROSE 5% IN WATER 100 ML with AMIODARONE 150 MG IV ONE (09:05)
[2025-05-03] MEDS ORDERED: AMIODARONE 450 MG in DEXTROSE 5% IN WATER 250 ML IV SCH (09:15)
--- NOTE | 2025-05-03 10:39 | P.PN ---
Subjective Progress Note Date: 05/03/25 64 year old M with PMH of COPD on 2L home O2, DM, HTN, GERD, HLD presents to the ED for SOB. History is obtained from his at bedside. Patient recently underwent TAVR on 04/15. Surgery was complicated with left flank hematoma. He had been doing well since his surgery. Over the past day, he reported increased shortness of breath not relieved with nebulized treatments. This prompted him to come to the ED. In the ED, he was noted to have agonal breathing and subsequently lost his pulse. MARLEE LOPEZ was called. He underwent high quality chest compressions, received 1 round of Epinephrine and intubated by Dr. Glass. ROSC was achieved. Vitals on arrival: BP 184/116, HR 105, RR 18, 98% on RA. Labs: WBC 18.42, RBC 3.95, Hg 11.5, Hct 36.9, Plt 516. INR 1.2. ABG pH 7, pCO2 > 98. K 5.6, Cl 93, bicarb 33, BUN 21, glu 117, T. Bili 2.8, AST 374, ALT 321. Trop 0.107. BNP 1030. UA neg LE or nitrite. EKG showed sinus tachycardia with RBBB CT brain no acute process CXR small L pleural effusion CTA chest no PE CT AP showed stable left flank hematoma Patient was admitted to ICU for further workup and management. Initially started on Zosyn IV for treatment on PNA. Procal 0.97. He was on Levophed for a short period of time initially. Sputum Cx grew Proteus and H. influenzae. Zosyn switched to Rocephin on 04/29. He started to spike fevers as high as 102.2F on 05/01, he was re-cultured and antibiotics was switched to Vancomycin and Cefepime. Elevated Troponin of 0.107, 0.14, 0.214 with EKG showing sinus tachycardia and RBBB. Echo showed EF 65-70% with severe pulmonary hypertension. Cardiology r ecommending no further workup. CT surgery consulted as well given recent TAVR on 04/15, recommending no surgical intervention. He has been difficult to wean off the ventilator. 05/03 Patient was seen and examined. Intubated and sedated. Sedated with Propofol at 35 mcg/kg/min. Antibiotics include Vancomycin and Cefepime (D2). COVID negative. Tmax 101.9F over the past 24H. CBC and CMP significant for WBC 13.32, RBC 3.39, Hg 9.5, Hct 32.9, MCV 97.1, Na 155, Cl 111, bicarb 42, BUN 51, glu 288. POC glucose 228-293 over the past 24H. CXR shows bilateral interstitial markings. General: non toxic, no distress, Intubated Derm: warm, dry Head: atraumatic, normocephalic, symmetric Eyes: no lid lag, anicteric sclera Mouth: no lip lesion, mucus membranes moist Cardiovascular: S1S2 tachy, no murmur Lungs: Decreased BS bilateral, no rhonchi, no rales , no accessory muscle use Ext: no gross muscle atrophy, 1-2+ LE pitting edema, no contractures Neuro: Intubated Psych: Intubated Based on my assessment of this patient, this patient meets a high complexity level of care. Fever with Sepsis likely secondary to PNA: Initial Sputum Cx Proteus and H. influenzae. Not improving with Rocephin. Antibiotics switched to Vancomycin dosed per pharmacy and Cefepime 2g IV TID (D2). COVID negative. MRSA screen, BCx, Legionella Ag, ordered. IV hydration as below. Tylenol 650 mg PO Q6H PRN fever. Cardiac arrest likely secondary to COPD exacerbation: Duoneb QID scheduled and PRN SOB/wheezing. Pulmicort 1mg INH BID. Performist 20 mcg INH BID. Solumedrol 60 mg IV Q6H. Pulmonary on board. Cardiology and CT surgery recommend no further workup. Acute on chronic hypoxic hypercapnic respiratory failure likely due to above: Status post Diamox. Hypernatremia: 6.1L free water deficit. Started on D5W at 100 cc/hr. Repeat BMP in the AM. Left flank hematoma: CT AP shows stable left flank hematoma. Troponin elevation: Likely due to demand ischemia. ASA 81 mg PO QD. Simvastatin 80 mg PO QHS. Echo as above. Cardiology recommends no further workup. DM with hyperglycemia: A1c 7.5. Lantus increased from 25 to 30 units QHS. Lispro increased from 8 to 10 units TID. Continue MISS with Accuchecks ACHS along with hypoglycemic precautions. Normocytic anemia with Thrombocytosis: Likely due to left flank hematoma. Gin tor and trend. Hyperbilirubinemia with Transaminitis: Likely due to hypotension. Improving. Trend. Resolved: Hypotension, HyperK CODE STATUS: FULL CODE DVT Prophylaxis: Lovenox SQ GI Prophylaxis: Protonix IV Designated medical POA if patient is not able to make medical decisions for themselves: I have reviewed the following curriculum consultant notes: Pulm. I have reviewed the results of the following tests: CBC, CMP, POC glucose, COVID. I have ordered the following tests: I have discussed the care of this patient with the following independent historian: I have independently interpreted the following test below: CXR. I have discussed the management of this patient with the following physician: Objective - Vital Signs Vital signs: Vital Signs Temp 97.8 F 05/03/25 08:00 Pulse 87 05/03/25 09:00 Resp 16 05/03/25 09:00 BP 126/69 05/03/25 09:00 Pulse Ox 94 L 05/03/25 09:00 FiO2 50 05/03/25 09:00 Intake & Output 05/02/25 05/03/25 05/03/25 18:59 06:59 18:59 Intake Total 4296.994 3500.122 162 Output Total 1340 1325 200 Balance -12.467 460.122 -38 Weight 95.2 kg Intake: IV 156 207 20 Pressure Bag 36 27 Sodium Chloride 0.9% 1, 120 130 20 000 ml @ 10 mls/hr IV . Q24H [facility] Rx#:[id number] cefTRIAXone 2 gm In 50 Sodium Chloride 0.9% 50 ml @ 100 mls/hr IVPB Q24HR [facility] Rx#:[id number] Intake, IV Titration 229.533 636.122 Amount Vancomycin 1,500 mg In 500 Sodium Chloride 0.9% 500 ml 500 ml @ 167 mls/hr IVPB Q12H [facility] Rx#: [id number] propofoL 1,000 mg In 229.533 136.122 Empty Bag 1 bag @ 15 MCG/ KG/MIN 8.124 mls/hr IV . [id number] [facility] Rx#:[id number] Tube Feeding 852 852 142 Other 90 90 Output: Urine 1340 1325 200 Other: Voiding Method Indwelling Catheter Indwelling Catheter Indwelling Catheter ABP, PAP, CO, CI - Last Documented Arterial Blood Pressure 147/60 - Labs CBC & Chem 7: 05/03/25 05:42 06/29/25 05:42 Labs: Abnormal Lab Results - Last 24 Hours (Table) 05/02/25 05/02/25 05/02/25 Range/Units 11:45 16:18 17:21 WBC (4.50-10.00) 10*3/uL RBC (4.40-5.60) 10*6/uL Hgb (13.0-17.0) g/dL Hct (39.6-50.0) % MCV (80.0-97.0) fL MCHC (32.0-37.0) g/dL Immature Gran # (0.00-0.04) 10*3/uL Neutrophils # (1.80-7.70) 10*3/uL Lymphocytes # (0.90-5.00) 10*3/uL Eosinophils # (0.04-0.35) 10*3/uL ABG pCO2 (35-45) mmHg ABG pO2 (83-108) mmHg ABG HCO3 (21-25) mmol/L ABG Total CO2 (19-24) mmol/L ABG O2 Saturation (94-97) % Sodium (137-145) mmol/L Potassium 5.3 H (3.5-5.1) mmol/L Chloride (98-107) mmol/L Carbon Dioxide (22-30) mmol/L BUN (9-20) mg/dL Glucose (74-99) mg/dL POC Glucose (mg/dL) 244 H 228 H (70-110) mg/dL Magnesium 3.0 H (1.6-2.3) mg/dL 05/02/25 05/03/25 05/03/25 Range/Units 23:39 05:14 05:42 WBC (4.50-10.00) 10*3/uL RBC (4.40-5.60) 10*6/uL Hgb (13.0-17.0) g/dL Hct (39.6-50.0) % MCV (80.0-97.0) fL MCHC (32.0-37.0) g/dL Immature Gran # (0.00-0.04) 10*3/uL Neutrophils # (1.80-7.70) 10*3/uL Lymphocytes # (0.90-5.00) 10*3/uL Eosinophils # (0.04-0.35) 10*3/uL ABG pCO2 (35-45) mmHg ABG pO2 (83-108) mmHg ABG HCO3 (21-25) mmol/L ABG Total CO2 (19-24) mmol/L ABG O2 Saturation (94-97) % Sodium 155 H (137-145) mmol/L Potassium (3.5-5.1) mmol/L Chloride 111 H (98-107) mmol/L Carbon Dioxide 42 H* (22-30) mmol/L BUN 51 H (9-20) mg/dL Glucose 288 H (74-99) mg/dL POC Glucose (mg/dL) 258 H 251 H (70-110) mg/dL Magnesium (1.6-2.3) mg/dL 05/03/25 05/03/25 Range/Units 05:42 06:08 WBC 13.32 H (4.50-10.00) 10*3/uL RBC 3.39 L (4.40-5.60) 10*6/uL Hgb 9.5 L (13.0-17.0) g/dL Hct 32.9 L (39.6-50.0) % MCV 97.1 H (80.0-97.0) fL MCHC 28.9 L (32.0-37.0) g/dL Immature Gran # 0.11 H (0.00-0.04) 10*3/uL Neutrophils # 11.99 H (1.80-7.70) 10*3/uL Lymphocytes # 0.45 L (0.90-5.00) 10*3/uL Eosinophils # 0.00 L (0.04-0.35) 10*3/uL ABG pCO2 70 H (35-45) mmHg ABG pO2 66 L (83-108) mmHg ABG HCO3 42 H* (21-25) mmol/L ABG Total CO2 44 H (19-24) mmol/L ABG O2 Saturation 92.9 L (94-97) % Sodium (137-145) mmol/L Potassium (3.5-5.1) mmol/L Chloride (98-107) mmol/L Carbon Dioxide (22-30) mmol/L BUN (9-20) mg/dL Glucose (74-99) mg/dL POC Glucose (mg/dL) (70-110) mg/dL Magnesium (1.6-2.3) mg/dL
[2025-05-03] MEDS: DEXTROSE 5% IN WATER 1,000 ML IV SCH (11:22)
[2025-05-03] MEDS: AMIODARONE 200 MG TAB PO SCH (11:22)
[2025-05-03 12:14] LABS: Glucose,Whole Blood 319 mg/dL (70-110)
--- NOTE | 2025-05-03 12:28 | P.GSCN ---
History of Present Illness Consult date: 05/03/25 Reason for Consult: Respiratory failure History of present illness: 64-year-old male came to the hospital on 04/27. Patient in the ER had a loss of vitals and underwent CPR. Has been followed by numerous consultants. Patient has a history of known late stage COPD. Is on home steroid and oxygen. Still smoking occasionally. Etiology for the patient's cardiac arrest is thought to likely be pulmonary in origin. Has been unable to be weaned from the ventilator at this time. We were consulted for tracheostomy and PEG tube placement. Review of Systems ROS unobtainable: due to endotracheal tube Past Medical History Past Medical History: COPD, Diabetes Mellitus, GERD/Reflux, Hyperlipidemia, Hypertension, Respiratory Disorder, Sleep Apnea/CPAP/BIPAP, Vascular Disorder Additional Past Medical History / Comment(s): aortic valve stenosis,bipap with O2 @ 3L,uses O2 @ 2 L nc prn during the day-Stg 4 COPD-unable to lay flat on back. Chronic back pain, hx of jaw fx 1978, History of Any Multi-Drug Resistant Organisms: None Reported Past Surgical History: Back Surgery, Cardiac Valve Replacement (April 15, 2025), Heart Catheterization, Orthopedic Surgery Additional Past Surgical History / Comment(s): lumbar surgery ; pain procedures, COLONOSCOPY, BRONCHOSCOPY Past Anesthesia/Blood Transfusion Reactions: No Reported Reaction Additional Past Anesthesia/Blood Transfusion Reaction / Comm: no hx blood transfusion Past Psychological History: No Psychological Hx Reported Smoking Status: Current every day smoker Past Alcohol Use History: None Reported Additional Past Alcohol Use History / Comment(s): SMOKES 1/2 PPD SINCE AGE 12 Past Drug Use History: None Reported - Past Family History Mother Family Medical History: No Reported History Father Family Medical History: COPD, Coronary Artery Disease (CAD) Additional Family Medical History / Comment(s): CABG. peripheral vascular disease Medications and Allergies Home Medications Medication Instructions Recorded Confirmed Type Simvastatin 80 mg PO HS 08/14/18 04/27/25 History Omeprazole 40 mg PO DAILY 03/14/19 04/27/25 History Albuterol Inhaler [Ventolin Hfa 2 puff INHALATION RT-Q6H PRN 09/01/24 04/27/25 History Inhaler] Insulin Glargine,Hum.rec.anlog 29 units SQ HS 09/01/24 04/27/25 History [Lantus Solostar Pen] SITagliptin [Sitagliptin] 100 mg PO DAILY 09/01/24 04/27/25 History predniSONE 10 mg PO DAILY 09/01/24 04/27/25 History metFORMIN HCL [Glucophage] 1,000 mg PO BID #0 04/16/25 04/27/25 Rx Aspirin EC [Ecotrin Low Dose] 81 mg PO DAILY 04/22/25 04/27/25 History Ipratropium-Albuterol Nebulize 3 ml INHALATION RT-Q6H 04/22/25 04/27/25 History [Duoneb 0.5 mg-3 mg/3 ml Soln] Furosemide [Lasix] 40 mg PO DAILY #7 tablet 04/23/25 04/27/25 Rx Fluticasone Nasal Grandy [Flonase 1 spray EA NOSTRIL BID 04/27/25 04/27/25 Histo ry Nasal Grandy] Ipratropium/Albuter 20-100Mcg 1 puff INHALATION RT-QID 04/27/25 04/27/25 History [Combivent Respimat 20-100Mcg Inhaler] Lisinopril-Hctz 20-25 mg 1 tab PO DAILY 04/27/25 04/27/25 History [Zestoretic 20-25] Mometasone/Formoterol [Dulera 100 2 puff INHALATION RT-BID 04/27/25 04/27/25 History Mcg-5 Mcg Inhaler] Potassium Chloride [Klor-Con M20] 20 meq PO DAILY 04/27/25 04/27/25 History Allergies Allergy/AdvReac Type Severity Reaction Status Date / Time empagliflozin Allergy Itching Verified 04/27/25 16:09 glipizide Allergy increased Verified 04/27/25 16:09 lactic acid bupropion [From Wellbutrin] AdvReac Nausea Verified 04/27/25 16:09 codeine AdvReac Nausea Verified 04/27/25 16:09 gabapentin AdvReac Nausea & Verified 04/27/25 16:09 Vomiting pregabalin AdvReac Nausea Verified 04/27/25 16:09 Surgical - Exam Vital Signs FiO2 100 04/27/25 15:15 Physical exam: General: Well-developed, well-nourished HEENT: Normocephalic, sclerae nonicteric, tracheostomy in place Abdomen: Nontender, nondistended Extremities: Mild bilateral lower extremity edema Neuro: Intubated Results - Labs 05/03/25 05:42 05/03/25 05:42 Abnormal Lab Results - Last 24 Hours (Table) 05/02/25 05/02/25 05/02/25 Range/Units 16:18 17:21 23:39 WBC (4.50-10.00) 10*3/uL RBC (4.40-5.60) 10*6/uL Hgb (13.0-17.0) g/dL Hct (39.6-50.0) % MCV (80.0-97.0) fL MCHC (32.0-37.0) g/dL Immature Gran # (0.00-0.04) 10*3/uL Neutrophils # (1.80-7.70) 10*3/uL Lymphocytes # (0.90-5.00) 10*3/uL Eosinophils # (0.04-0.35) 10*3/uL ABG pCO2 (35-45) mmHg ABG pO2 (83-108) mmHg ABG HCO3 (21-25) mmol/L ABG Total CO2 (19-24) mmol/L ABG O2 Saturation (94-97) % Sodium (137-145) mmol/L Potassium 5.3 H (3.5-5.1) mmol/L Chloride (98-107) mmol/L Carbon Dioxide (22-30) mmol/L BUN (9-20) mg/dL Glucose (74-99) mg/dL POC Glucose (mg/dL) 228 H 258 H (70-110) mg/dL Magnesium 3.0 H (1.6-2.3) mg/dL 05/03/25 05/03/25 05/03/25 Range/Units 05:14 05:42 05:42 WBC 13.32 H (4.50-10.00) 10*3/uL RBC 3.39 L (4.40-5.60) 10*6/uL Hgb 9.5 L (13.0-17.0) g/dL Hct 32.9 L (39.6-50.0) % MCV 97.1 H (80.0-97.0) fL MCHC 28.9 L (32.0-37.0) g/dL Immature Gran # 0.11 H (0.00-0.04) 10*3/uL Neutrophils # 11.99 H (1.80-7.70) 10*3/uL Lymphocytes # 0.45 L (0.90-5.00) 10*3/uL Eosinophils # 0.00 L (0.04-0.35) 10*3/uL ABG pCO2 (35-45) mmHg ABG pO2 (83-108) mmHg ABG HCO3 (21-25) mmol/L ABG Total CO2 (19-24) mmol/L ABG O2 Saturation (94-97) % Sodium 155 H (137-145) mmol/L Potassium (3.5-5.1) mmol/L Chloride 111 H (98-107) mmol/L Carbon Dioxide 42 H* (22-30) mmol/L BUN 51 H (9-20) mg/dL Glucose 288 H (74-99) mg/dL POC Glucose (mg/dL) 251 H (70-110) mg/dL Magnesium (1.6-2.3) mg/dL 05/03/25 05/03/25 Range/Units 06:08 12:13 WBC (4.50-10.00) 10*3/uL RBC (4.40-5.60) 10*6/uL Hgb (13.0-17.0) g/dL Hct (39.6-50.0) % MCV (80.0-97.0) fL MCHC (32.0-37.0) g/dL Immature Gran # (0.00-0.04) 10*3/uL Neutrophils # (1.80-7.70) 10*3/uL Lymphocytes # (0.90-5.00) 10*3/uL Eosinophils # (0.04-0.35) 10*3/uL ABG pCO2 70 H (35-45) mmHg ABG pO2 66 L (83-108) mmHg ABG HCO3 42 H* (21-25) mmol/L ABG Total CO2 44 H (19-24) mmol/L ABG O2 Saturation 92.9 L (94-97) % Sodium (137-145) mmol/L Potassium (3.5-5.1) mmol/L Chloride (98-107) mmol/L Carbon Dioxide (22-30) mmol/L BUN (9-20) mg/dL Glucose (74-99) mg/dL POC Glucose (mg/dL) 319 H (70-110) mg/dL Magnesium (1.6-2.3) mg/dL Diabetes panel 05/02/25 05/03/25 Range/Units 16:18 05:42 Sodium 155 H (137-145) mmol/L Potassium 5.3 H 4.9 (3.5-5.1) mmol/L Chloride 111 H (98-107) mmol/L Carbon Dioxide 42 H* (22-30) mmol/L BUN 51 H (9-20) mg/dL Creatinine 0.86 (0.66-1.25) mg/dL Glucose 288 H (74-99) mg/dL Calcium 9.0 (8.4-10.2) mg/dL Calcium panel 05/03/25 Range/Units 05:42 Calcium 9.0 (8.4-10.2) mg/dL Pituitary panel 05/02/25 05/03/25 Range/Units 16:18 05:42 Sodium 155 H (137-145) mmol/L Potassium 5.3 H 4.9 (3.5-5.1) mmol/L Chloride 111 H (98-107) mmol/L Carbon Dioxide 42 H* (22-30) mmol/L BUN 51 H (9-20) mg/dL Creatinine 0.86 (0.66-1.25) mg/dL Glucose 288 H (74-99) mg/dL Calcium 9.0 (8.4-10.2) mg/dL Adrenal panel 05/02/25 05/03/25 Range/Units 16:18 05:42 Sodium 155 H (137-145) mmol/L Potassium 5.3 H 4.9 (3.5-5.1) mmol/L Chloride 111 H (98-107) mmol/L Carbon Dioxide 42 H* (22-30) mmol/L BUN 51 H (9-20) mg/dL Creatinine 0.86 (0.66-1.25) mg/dL Glucose 288 H (74-99) mg/dL Calcium 9.0 (8.4-10.2) mg/dL Assessment and Plan (1) Respiratory failure Narrative/Plan: 64-year-old male with advanced COPD. Currently on ventilator and unable to wean. We were asked to see this patient for possible tracheostomy and PEG tube placement. Apparently family is undecided if they would like to proceed. They plan to discuss this further with Dr. Urbina tomorrow. Will tentatively schedule for Sunday if consent obtained. Will discuss further with family as we get closer to the surgical procedure. Current Visit: Yes Status: Acute Code(s): J96.90 - RESPIRATORY FAILURE, UNSP, UNSP W HYPOXIA OR HYPERCAPNIA SNOMED Code(s): 549431496
--- NOTE | 2025-05-03 15:41 | P.PN ---
Subjective Progress Note Date: 05/03/25 A 64-year-old male patient presented to the emergency department with acute respiratory failure. The patient was unresponsive and in respiratory arrest. CPR was immediately initiated. The patient was given a round of epinephrine and CPR and the patient was intubated in the emergency department. He had return of spontaneous circulation. I reviewed the initial EKG post resuscitation and the patient was in normal sinus rhythm with a right bundle branch block pattern. The initial rhythm at the time of his cardiac arrest is not known. Nevertheless, I suspect that the patient had an acute hypoxic/hypercapnic respiratory failure as the patient postintubation was actively bronchospastic and wheezy. I saw the patient immediately post intubation and the patient had very limited air entry bilaterally, active bronchospastic and wheezy and while being on the mechanical ventilator, the patient's peak airway pressure was 50 and the blood gas showed a pH of 7.0 with a PCO2 more than 98 and a pO2 of 232 and this was done at that appointment for 50, rate of 20, FiO2 100% with a PEEP of 5. The chest x-ray was reviewed and it showed a small left-sided pleural effusion. The patient underwent a CT of the chest and a CAT scan of the abdomen. CT of the chest showed no evidence of any pulmonary embolism and the patient had no filling defects. No mediastinal lymphadenopathy or any other acute cardiopulmonary abnormalities. Lungs were essentially clear. CAT scan of the abdomen and pelvis showed left flank hematoma present since 04/22/2025 and this occurred following a TAVR procedure. The patient had a low-density lesion along the left lateral hemipelvis with some mild stranding measuring 7.7 x 4.5 x 13.4 cm in size, likely presenting an intramuscular seroma without any free fluid in the pelvis. Findings were essentially similar compared to the earlier CAT scan on 04/22/2025. No other abnormalities noted. CAT scan of the brain showed no acute intracranial abnormalities. Blood work showed a white cell count of 18.4 with a hemoglobin 9.5 and a platelet count of 516. Normal coagulation profile. K levels of 5.6, bicarb is at 33 with a BUN of 21 and creatinine 0.8. Lactic acid level was at 3.1. Troponins were 0.1 and 0.1 respectively x 2 with a proBNP level of 1000. BUN is 21 with a creatinine of 0.8 and UA was also noted with 4 WBCs. Based on his ongoing hypoxic respiratory failure, high airway pressures and severe bronchospasm wheezing, the patient was started on DuoNeb nebulizer treatments [id number], IV Solu-Medrol and patient was kept on propofol and the patient was also started on paralytics with Nimbex. IV fluids are currently running at the rate of 100 cc of normal saline and the patient is also on low- dose norepinephrine for hemodynamic support. 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 04/28/2025, the patient is being seen for a follow-up. The patient remains intubated on a mechanical ventilator. This morning, the patient sedated with propofol running at 50 mcg/kg/min and Nimbex at 1 mcg/kg/min. Is adequately sedated and paralyzed. He remains on mechanical ventilator, assist-control mode at rate of 30, tidal volume of 400, FiO2 50% with a PEEP of 5. Peak airway pressure is 33. The blood gas showed a pH of 7.24 with a PCO2 of 76 and PO2 of 82. Chest x-ray shows no acute abnormalities. Orotracheal tube was pushed in and it seems to be in satisfactory position. He has some interstitial opacities bilaterally along with background COPD. NG tube is not clearly seen. The patient is on normal saline at rate of 100 cc an hour. Urine output is in order of 40 cc an hour. Fluid balance is +712 cc over the past 24 hours. He is on low-dose norepinephrine running at 0.01 mcg/kg/min. The patient has been COPD and the patient is oxygen dependent and steroid-dependent outpatient basis the patient has been taking 50 mg of prednisone on an outpatient basis. WBC count is at 19 with a hemoglobin 10.2 and a platelet count of 410. Sodium is at 136, potassium is at 5.2, bicarb is at 34, BUN is 40 with a creatinine of 1.1. LFTs are abnormal with an AST of 1110 [place] [address] and a normal alkaline phosphatase. Blood sugar slightly elevated due to steroid use and the patient is on insulin sliding scale coverage. The patient is also on empiric antibiotic coverage with IV Zosyn. The left flank and abdominal hematoma remains unchanged. On 04/29/2025, the patient remains intubated on the mechanical ventilator. The patient is on propofol running at 50 mcg/kg/min and the patient is on Nimbex running at 2 mcg/kg/min. The patient is adequately sedated and paralyzed. This morning, he is on assist-control mode at rate of 30, tidal volume of 400, FiO2 50% with a PEEP of 5. The blood gas showed a pH of 7.28 with a PCO2 of 75 and PO2 of 96. The peak airway pressure is 34. Chest x-ray shows no acute abnormalities. Her procalcitonin level was at 0.97. The patient remains on vital high-protein at rate of 40 cc an hour. Fluid balance is +1.1 L over the past 24 hours and the patient is on normal Saint rate of 50 cc an hour. Echocardiogram showed ejection fraction of 65%, dilatation of the RV and the pulmonary artery pressure of around 55. The white cell count of 16.6 with a hemoglobin 9.8 and a platelet count of 395. Sodium is at 135, potassium is at 5.1, bicarbonate 37, BUN 60 with a creatinine of 1.08. AST is 412. ALT is at 1 091. Total protein is at 5.7 with an albumin of 3.3. Remains on DuoNeb neb treatment [id number]. Remains on a combination of Perforomist and Pulmicort neb treatments twice a day and IV Solu-Medrol 60 mg every 6 hours. Remains on empiric antibiotic coverage with IV Rocephin. Remains on IV Solu- Medrol. Patient is off pressors for now. CAT scan of the abdomen and pelvis that was done at time of admission showed no significant intra-abdominal abnormalities. Left flank hematoma was essentially unchanged. The patient continues to have a stable hemoglobin and there is no significant drop in hemoglobin over the past 24 hours. He is post TAVR. He has an underlying rhythm that is sinus and the patient has a bundle branch block pattern. On 04/30/2025, the patient is being seen for a follow-up. Remains intubated on mechanical ventilator. The patient remains on propofol which is running at 50 mcg/kg/min and the patient is currently off paralytics. The morning blood gases showed a pH of 7.32 with a PCO2 of 80 and PO2 of 77. This was done on assist- control mode with a rate of 70, tidal volume of 400, FiO2 50% and PEEP of 5. Chest x-ray shows no acute pulmonary infiltrates. A drop in the respiratory rate was down to 20 and FiO2 was dropped down to 40%. Subsequent blood gas showed a pH of 7.23 with a PCO2 of 94 and PO2 of 101. The patient was riding the mechanical ventilator and the patient is deeply sedated. Will gradually wean down his propofol. Meanwhile, morning blood draw showed a elevated potassium level and the patient had hyperkalemia. Potassium was at 6. The patient was given calcium gluconate, 10 units of insulin and Lokelma 10 mg. Subsequent potassium level improved. The the white cell count is at 19.3 with a hemoglobin 9.4 and a platelet count of 338. The sodium is at 139, most recent potassium level is down to 5.7, the serum bicarb is at 40, chloride is 96. The peak airway pressure is around 35. The patient is on vital high-protein at rate of 55 cc an hour. The patient is also on Lantus insulin for blood sugar control and the patient receiving Lantus 25 units and NovoLog 8 units 3 times daily and a sliding scale coverage. Remains on bronchodilators. Remains on steroids. Remains on Perforomist and Pulmicort nebulized treatments. Remains on empiric antibiotic coverage with IV Rocephin. Sputum sample is positive for Proteus m irabilis and haemophilus. On today's evaluation of 05/01/2025, the patient is being seen for a follow-up. The patient is off paralytics and the patient is currently on propofol running at 35 mcg/kg/min. The patient currently is on a mechanical ventilator assist- control mode at rate of 30, tidal volume of 400, FiO2 of 50% with a PEEP of 5. Patient has a pH of 7.33 with a PCO2 of 79 and PO2 of 80. Sputum positive for Proteus and haemophilus and the patient remains on IV Rocephin. Chest x-ray shows no evidence of pneumonia. Peak airway pressure is around 34. IV fluids are KVO. Fluid balance is -1.1 L. Cardiac rhythm is sinus. No pressors. The patient remains on vital protein at rate of 55 cc an hour. Remains on bronchodilators. Remains on IV Solu-Medrol. Remains on Lantus insulin 25 units along with NovoLog sliding scale coverage. Last flank and abdominal hematoma is unchanged extending to the scrotum. No significant swelling. No drop in the hemoglobin. The blood work from today shows a WBC count of 19.7, hemoglobin 9.2 and platelet count of 307. Serum bicarbonate is 43, sodium is 145, potassium is at 5.3, chloride is 99. 05/02/2025, the patient remains intubated on mechanical ventilator. The patient remains on propofol running at 25 mcg/kg/min. Chest x-ray shows pulm interstitial infiltrates bilaterally. The patient's sputum sample was positive for Proteus and haemophilus influenza. The patient was treated with IV Rocephin. Nevertheless, this morning, the patient noted to be febrile and failed the fever workup will be done. Will repeat a sputum analysis. Will check a blood cultures. Antibiotics will be modified and the patient will be taken off Rocephin and started on IV cefepime. Patient will be also started on vancomycin pending further cultures. He is on assist-control mode of mechanical ventilation at rate of 30, tidal volume 400, FiO2 50% with a PEEP of 5. pH is at 7.35 with a PCO2 of 78 and PO2 of 86. Peak airway pressure is around 30. Fluid balance is -1.1 L over the past 24 hours. The patient remains on vital high-protein at rate of 71 cc an hour. Lantus for blood sugar control 30 units and the cardiac rhythm is sinus. IV fluids are currently at KVO. Rest of the blood work shows a white cell count of 16, hemoglobin 9.3 and a platelet count of 286. Sodium levels at 151, potassium level is at 5, bicarb is at 45, BUN 50 and creatinine is at 1.03. Blood sugars are 244. LFTs are improving with a drop in the AST and ALT level. COVID-19 testing has been negative. Procalcitonin level is at 0.97. On 05/03/2025, the patient is being seen for a follow-up. The patient remains intubated on a mechanical ventilator. This will be a extremely difficult wean as the patient advanced COPD. The patient remains on propofol at the rate of 35 mcg/kg/min. The sedation holiday was given failed as the patient became tachypn eic, hypoxic, tachycardic and he went into cardiac arrhythmias in the form of SVT. Subsequently, the patient was placed back on sedation the patient remains on propofol. The patient remains on assist-control mode at rate of 30, tidal volume of 400, FiO2 50% with a PEEP of 5. Blood gas from today shows a pH of 7.38 with a PCO2 of 70 and PO2 of 60. Chest x-ray findings are essentially unchanged. The patient remains on IV antibiotics as the patient has grown haemophilus and Proteus in the sputum and the patient currently is on IV cefepime. He is also on vancomycin as an empiric antibiotic coverage. Awaiting follow-up sputum samples. Fluid balance is -930 cc over the past 24 hours. The patient is on vital high-protein at rate of 71 cc an hour. Lantus insulin at 30 units/day along with NovoLog 10 units with meal and sliding scale coverage. No pressors for now. Continues to have short runs of a flutter/SVT. Current cardiac rhythm is sinus. Sodium levels at 155, potassium levels of 4.9, BUN 51 with a creatinine of 0.8. WBC count of 13.2, hemoglobin 9.7 and platelet count is at 275. IV fluids are currently at KVO. Objective - Vital Signs Vital signs: Vital Signs Temp 97.8 F 05/03/25 08:00 Pulse 87 05/03/25 09:00 Resp 16 05/03/25 09:00 BP 126/69 05/03/25 09:00 Pulse Ox 94 L 05/03/25 09:00 FiO2 50 05/03/25 09:00 Intake & Output 05/02/25 05/03/25 05/03/25 18:59 06:59 18:59 Intake Total 0523.047 8444.122 162 Output Total 1340 1325 200 Balance -12.467 460.122 -38 Weight 95.2 kg Intake: IV 156 207 20 Pressure Bag 36 27 Sodium Chloride 0.9% 1, 120 130 20 000 ml @ 10 mls/hr IV . Q24H [facility] Rx#:[id number] cefTRIAXone 2 gm In 50 Sodium Chloride 0.9% 50 ml @ 100 mls/hr IVPB Q24HR [facility] Rx#:[id number] Intake, IV Titration 229.533 636.122 Amount Vancomycin 1,500 mg In 500 Sodium Chloride 0.9% 500 ml 500 ml @ 167 mls/hr IVPB Q12H [facility] Rx#: [id number] propofoL 1,000 mg In 229.533 136.122 Empty Bag 1 bag @ 15 MCG/ KG/MIN 8.124 mls/hr IV . [id number] [facility] Rx#:[id number] Tube Feeding 852 852 142 Other 90 90 Output: Urine 1340 1325 200 Other: Voiding Method Indwelling Catheter Indwelling Catheter Indwelling Catheter ABP, PAP, CO, CI - Last Documented Arterial Blood Pressure 147/60 - Exam The patient appeared well nourished and normally developed. Vital signs as documented. The patient is currently intubated on mechanical ventilator. Orotracheal and gastric tube are both in place. Head exam is unremarkable. No scleral icterus or corneal arcus noted. The patient remains sedated on propofol. Neck is without jugular venous distension, thyromegaly, or carotid bruits. C arotid upstrokes are brisk bilaterally. Lungs show mild diminished breath sounds bilaterally, air entry is quite limited and the patient has prolongation of isolation phase of breathing and ongoing b ronchospasm wheezing. Cardiac exam reveals the PMI to be normally sized and situated. Rhythm is regu lar. First and second heart sounds normal. No murmurs, rubs or gallops. Abdominal exam reveals normal bowel sounds, no masses, no organomegaly and no aortic enlargement. Lower abdominal hematoma extending to left flank Extremities are nonedematous and both femoral and pedal pulses are diminished b ilaterally Examination of the skin revealed no evidence of significant rashes, suspicious appearing nevi or other concerning lesions. Neurologically, the patient is sedated, the patient was given a sedation holiday. The patient became asynchronous with the mechanical ventilator and he was able to move all 4 extremities and his neurologic exam is nonfocal. Based on that, the patient was placed back on propofol. - Labs CBC & Chem 7: 05/03/25 05:42 05/03/25 05:42 Labs: Abnormal Lab Results - Last 24 Hours (Table) 05/02/25 05/02/25 05/02/25 Range/Units 09:39 11:45 16:18 WBC (4.50-10.00) 10*3/uL RBC (4.40-5.60) 10*6/uL Hgb (13.0-17.0) g/dL Hct (39.6-50.0) % MCV (80.0-97.0) fL MCHC (32.0-37.0) g/dL Immature Gran # (0.00-0.04) 10*3/uL Neutrophils # (1.80-7.70) 10*3/uL Lymphocytes # (0.90-5.00) 10*3/uL Eosinophils # (0.04-0.35) 10*3/uL ABG pCO2 (35-45) mmHg ABG pO2 (83-108) mmHg ABG HCO3 (21-25) mmol/L ABG Total CO2 (19-24) mmol/L ABG O2 Saturation (94-97) % Sodium (137-145) mmol/L Potassium 5.3 H (3.5-5.1) mmol/L Chloride (98-107) mmol/L Carbon Dioxide (22-30) mmol/L BUN (9-20) mg/dL Glucose (74-99) mg/dL POC Glucose (mg/dL) 262 H 244 H (70-110) mg/dL Magnesium 3.0 H (1.6-2.3) mg/dL 05/02/25 05/02/25 05/03/25 Range/Units 17:21 23:39 05:14 WBC (4.50-10.00) 10*3/uL RBC (4.40-5.60) 10*6/uL Hgb (13.0-17.0) g/dL Hct (39.6-50.0) % MCV (80.0-97.0) fL MCHC (32.0-37.0) g/dL Immature Gran # (0.00-0.04) 10*3/uL Neutrophils # (1.80-7.70) 10*3/uL Lymphocytes # (0.90-5.00) 10*3/uL Eosinophils # (0.04-0.35) 10*3/uL ABG pCO2 (35-45) mmHg ABG pO2 (83-108) mmHg ABG HCO3 (21-25) mmol/L ABG Total CO2 (19-24) mmol/L ABG O2 Saturation (94-97) % Sodium (137-145) mmol/L Potassium (3.5-5.1) mmol/L Chloride (98-107) mmol/L Carbon Dioxide (22-30) mmol/L BUN (9-20) mg/dL Glucose (74-99) mg/dL POC Glucose (mg/dL) 228 H 258 H 251 H (70-110) mg/dL Magnesium (1.6-2.3) mg/dL 05/03/25 05/03/25 05/03/25 Range/Units 05:42 05:42 06:08 WBC 13.32 H (4.50-10.00) 10*3/uL RBC 3.39 L (4.40-5.60) 10*6/uL Hgb 9.5 L (13.0-17.0) g/dL Hct 32.9 L (39.6-50.0) % MCV 97.1 H (80.0-97.0) fL MCHC 28.9 L (32.0-37.0) g/dL Immature Gran # 0.11 H (0.00-0.04) 10*3/uL Neutrophils # 11.99 H (1.80-7.70) 10*3/uL Lymphocytes # 0.45 L (0.90-5.00) 10*3/uL Eosinophils # 0.00 L (0.04-0.35) 10*3/uL ABG pCO2 70 H (35-45) mmHg ABG pO2 66 L (83-108) mmHg ABG HCO3 42 H* (21-25) mmol/L ABG Total CO2 44 H (19-24) mmol/L ABG O2 Saturation 92.9 L (94-97) % Sodium 155 H (137-145) mmol/L Potassium (3.5-5.1) mmol/L Chloride 111 H (98-107) mmol/L Carbon Dioxide 42 H* (22-30) mmol/L BUN 51 H (9-20) mg/dL Glucose 288 H (74-99) mg/dL POC Glucose (mg/dL) (70-110) mg/dL Magnesium (1.6-2.3) mg/dL Assessment and Plan Plan: Acute cardiopulmonary arrest although we suspect that this is most likely pulmonary arrest followed by cardiac arrest and the patient was briefly resuscitated in the emergency department received a round of epinephrine and CPR with return of spontaneous circulation. The patient is intubated and subsequently the patient was found to be in acute hypercapnic respiratory failure. There is interval improvement in acid-base status. The most recent blood gas shows improvement in the acid-base status. The patient has interstitial infiltrates bilaterally. Sputum sample was positive for haem ophilus influenza and Proteus. Based on ongoing fever, further antibiotic adjustments will be done. The patient is currently on a combination of vancomycin and cefepime. Chest x-ray findings are stable. No evidence of any significant airspace disease. Adequate oxygenation. Adequate ventilation for now. The patient failed a sedation holiday yesterday. Acute exacerbation of COPD, remains on bronchodilators and steroids. Sputum sample is positive for haemophilus and Proteus, rule out underlying pneumonia Fever under investigation, currently afebrile Acute hypercapnic respiratory failure essentially due to COPD exacerbation. CT of the chest was negative. CT scan of the abdomen and pelvis showed a stable left flank hematoma. Left flank hematoma status post TAVR Hemodynamically stable. No interval drop in the hemoglobin levels, on examination, the hematoma remains unchanged and stable Advanced COPD with chronic hypoxic respiratory failure, O2 dependent with severe obstructive limitation. The patient has been prednisone dependent 15 mg of prednisone on daily basis in addition to oxygen and he continues to smoke on and off on outpatient basis according to the family. Obstructive sleep apnea, maintained on CPAP therapy on outpatient basis Lactic acidosis, recovered Hyperchloremic hypernatremia Mild troponin leak, likely type II myocardial ischemia post cardiopulmonary arrest Left flank hematoma post TAVR Symptomatic severe aortic stenosis post TAVR on 04/15/2025 PAD with history of left femoral artery occlusion Hypertension Hyperlipidemia Type 2 diabetes mellitus Abnormal LFTs, transaminitis. The LFTs have been improving. Hyperkalemia, l treated and the potassium level is normalized Hyperchloremic hypernatremia Plan Keep the patient intubated on a mechanical ventilator. Not ready for any further weaning, this is going to be an extremely difficult wean. I do like discussion with the family. I think is going to be very difficult for this patient to come off the mechanical ventilator especially with his advanced COPD and chronic hypoxic and hypercapnic respiratory failure. He has already failed sedation holiday. Will give him another sedation holiday today. I am considering PEG tube insertion and tracheostomy tube insertion to facilitate further weaning. General surgery consultation to be obtained. Keep the patient sedated with propofol and patient will receive daily sedation holidays, the patient continues to have tachyarrhythmias while being on sedation holiday including a flutter and SVT. The patient will be started on amiodarone. DuoNeb nebulizer treatments [id number] Perforomist and Pulmicort nebulized treatments twice a day IV Solu-Medrol 60 mg every 6 hours Empiric antibiotic coverage with IV but the combination of cefepime and vancomycin Repeat sputum analysis with culture and blood cultures Utilize norepinephrine if needed to maintain mean atrial pressure above 65, currently off pressors for now IV Protonix IV fluids are currently at KVO Heparin subcu Lovenox 40 mg subcu for DVT prophylaxis echocardiogram from 04/16/2025 showed normal LV, TAVR noted with a mean gradient of 15 mmHg Monitor blood gases Monitor left flank hematoma Monitor LFTs, improving and repeat levels will be obtained for tomorrow. stop Lipitor CAT scan of the abdomen showed no acute abnormalities in the patient's hematoma had been essentially stable. Hemoglobin remained stable Start the patient on free water through OG. Monitor sodium level. No need for diuretics at this point. The patient will be started on D5 water at rate of 100 cc an hour. Monitor sodium level. Monitor blood sugar and necessary adjustments in insulin dose to be done. Not ready for weaning for now. Continue enteral feeding for tissue support and the patient is on vital HP Lantus insulin 30 units daily and sliding scale coverage, in addition to 10 units of NovoLog 3 times a day. Critical care evaluation This evaluation was done and 35 minutes. Had a like discussion with the family and updated the family on his condition. Yesterday Time with Patient: Greater than 30
[2025-05-03 17:17] LABS: Glucose,Whole Blood 301 mg/dL (70-110)
[2025-05-03 23:36] LABS: Glucose,Whole Blood 335 mg/dL (70-110)
[2025-05-04 05:04] LABS: ABG PCO2 68 mmHg (35-45); ABG PH 7.38 (7.35-7.45); ABG PO2 109 mmHg (83-108); ABG TCO2 43 mmol/L (19-24); Allen Test Performed? Yes
[2025-05-04 05:08] LABS: ABG HCO3 41 mmol/L (21-25)
[2025-05-04 05:39] LABS: Glucose,Whole Blood 336 mg/dL (70-110)
--- NOTE | 2025-05-04 07:01 | XR ---
EXAMINATION TYPE: XR chest 1V DATE OF EXAM: 05/04/2025 5:46 AM COMPARISON: Chest radiograph from one day prior. CLINICAL INDICATION: Male, 64 years old with history of copd; [facility] TECHNIQUE: XR chest 1V Frontal view of the chest. FINDINGS: Lungs/Pleura: Scattered subtle reticular and hazy opacities. No evidence of pneumothorax, focal conso lidation or pleural effusion. Pulmonary vascularity: Unremarkable. Heart/mediastinum: Cardiomediastinal silhouette is unremarkable. Post aortic valve repair changes. Musculoskeletal: No acute osseous pathology. Other findings: None Lines/Tubes: Endotracheal tube with distal tip 7.6cm above the yakelin. Nasogastric tube with its distal tip and side-port projecting under the diaphragm. Left internal jugular central venous catheter with distal tip at the cavoatrial junction. IMPRESSION: Similar Scattered reticular opacities are unchanged [facility] Dieter Moulton, , 05/04/2025 6:58 AM
[2025-05-04 07:39] LABS: Basophils # (A) 0.02 10*3/uL (0.00-0.10); Basophils % (A) 0.1 %; Eosinophils # (A) 0.00 10*3/uL (0.04-0.35); Eosinophils % (A) 0.0 %; HCT 31.8 % (39.6-50.0); HGB 9.4 g/dL (13.0-17.0); Lymphocytes # (A) 0.27 10*3/uL (0.90-5.00); Lymphocytes % (A) 1.9 %; MCH 28.2 pg (27.0-32.0); MCHC 29.6 g/dL (32.0-37.0); MCV 95.5 fL (80.0-97.0); Monocytes # (A) 0.68 10*3/uL (0.20-1.00); Monocytes % (A) 4.9 %; Neutrophils # (A) 12.81 10*3/uL (1.80-7.70); Neutrophils % (A) 91.9 %; Platelet Count 260 10*3/uL (140-440); RBC 3.33 10*6/uL (4.40-5.60); RDW 15.2 % (11.5-14.5); WBC 13.95 10*3/uL (4.50-10.00)
[2025-05-04 07:49] LABS: African American GFR (CKD) >90 (>60 ml/min/1.73 sqM); Blood Urea Nitrogen 53 mg/dL (9-20); Calcium 9.0 mg/dL (8.4-10.2); Chloride 110 mmol/L (98-107); Glucose 323 mg/dL (74-99); Non-African American GFR(CKD) >90 (>60 ml/min/1.73 sqM); Potassium 5.3 mmol/L (3.5-5.1); Sodium 152 mmol/L (137-145)
[2025-05-04 07:56] LABS: Anion Gap 5 mmol/L
[2025-05-04 08:00] LABS: Carbon Dioxide 37 mmol/L (22-30)
[2025-05-04] MEDS: VANCOMYCIN TROUGH DUE 1 EACH MISC MISCELLANE ONE (09:50)
[2025-05-04 11:30] LABS: Glucose,Whole Blood 273 mg/dL (70-110)
--- NOTE | 2025-05-04 12:46 | P.PN ---
Subjective Progress Note Date: 05/04/25 Principal diagnosis: Cardiac arrest A 64-year-old male patient presented to the emergency department with acute respiratory failure. The patient was unresponsive and in respiratory arrest. CPR was immediately initiated. The patient was given a round of epinephrine and CPR and the patient was intubated in the emergency department. He had return of spontaneous circulation. I reviewed the initial EKG post resuscitation and the patient was in normal sinus rhythm with a right bundle branch block pattern. The initial rhythm at the time of his cardiac arrest is not known. Nevertheless, I suspect that the patient had an acute hypoxic/hypercapnic respiratory failure as the patient postintubation was actively bronchospastic and wheezy. I saw the patient immediately post intubation and the patient had very limited air entry bilaterally, active bronchospastic and wheezy and while being on the mechanical ventilator, the patient's peak airway pressure was 50 and the blood gas showed a pH of 7.0 with a PCO2 more than 98 and a pO2 of 232 and this was done at that appointment for 50, rate of 20, FiO2 100% with a PEEP of 5. The chest x-ray was reviewed and it showed a small left-sided pleural effusion. The patient underwent a CT of the chest and a CAT scan of the ab domen. CT of the chest showed no evidence of any pulmonary embolism and the patient had no filling defects. No mediastinal lymphadenopathy or any other acute cardiopulmonary abnormalities. Lungs were essentially clear. CAT scan of the abdomen and pelvis showed left flank hematoma present since 04/22/2025 and this occurred following a TAVR procedure. The patient had a low-density lesion along the left lateral hemipelvis with some mild stranding measuring 7.7 x 4.5 x 13.4 cm in size, likely presenting an intramuscular seroma without any free fluid in the pelvis. Findings were essentially similar compared to the earlier CAT scan on 04/22/2025. No other abnormalities noted. CAT scan of the brain showed no acute intracranial abnormalities. Blood work showed a white cell count of 18.4 with a hemoglobin 9.5 and a platelet count of 516. Normal coagulation profile. K levels of 5.6, bicarb is at 33 with a BUN of 21 and creatinine 0.8. Lactic acid level was at 3.1. Troponins were 0.1 and 0.1 respectively x 2 with a proBNP level of 1000. BUN is 21 with a creatinine of 0.8 and UA was also noted with 4 WBCs. Based on his ongoing hypoxic respiratory failure, high airway pressures and severe bronchospasm wheezing, the patient was started on DuoNeb nebulizer treatments [id number], IV Solu-Medrol and patient was kept on propofol and the patient was also started on paralytics with Nimbex. IV fluids are currently running at the rate of 100 cc of normal saline and the patient is also on low- dose norepinephrine for hemodynamic support. 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 04/28/2025, the patient is being seen for a follow-up. The patient remains intubated on a mechanical ventilator. This morning, the patient sedated with propofol running at 50 mcg/kg/min and Nimbex at 1 mcg/kg/min. Is adequately sedated and paralyzed. He remains on mechanical ventilator, assist-control mode at rate of 30, tidal volume of 400, FiO2 50% with a PEEP of 5. Peak airway pressure is 33. The blood gas showed a pH of 7.24 with a PCO2 of 76 and PO2 of 82. Chest x-ray shows no acute abnormalities. Orotracheal tube was pushed in and it seems to be in satisfactory position. He has some interstitial opacities bilaterally along with background COPD. NG tube is not clearly seen. The patient is on normal saline at rate of 100 cc an hour. Urine output is in order of 40 cc an hour. Fluid balance is +712 cc over the past 24 hours. He is on low-dose norepinephrine running at 0.01 mcg/kg/min. The patient has been COPD and the patient is oxygen dependent and steroid-dependent outpatient basis the patient has been taking 50 mg of prednisone on an outpatient basis. WBC count is at 19 with a hemoglobin 10.2 and a platelet count of 410. Sodium is at 136, potassium is at 5.2, bicarb is at 34, BUN is 40 with a creatinine of 1.1. LFTs are abnormal with an AST of 1110 [place] [address] and a normal alkaline phosphatase. Blood sugar slightly elevated due to steroid use and the patient is on insulin sliding scale coverage. The patient is also on empiric antibiotic coverage with IV Zosyn. The left flank and abdominal hematoma remains unchanged. On 04/29/2025, the patient remains intubated on the mechanical ventilator. The patient is on propofol running at 50 mcg/kg/min and the patient is on Nimbex running at 2 mcg/kg/min. The patient is adequately sedated and paralyzed. This morning, he is on assist-control mode at rate of 30, tidal volume of 400, FiO2 50% with a PEEP of 5. The blood gas showed a pH of 7.28 with a PCO2 of 75 and PO2 of 96. The peak airway pressure is 34. Chest x-ray shows no acute abnormalities. Her procalcitonin level was at 0.97. The patient remains on vi heena high-protein at rate of 40 cc an hour. Fluid balance is +1.1 L over the past 24 hours and the patient is on normal Saint rate of 50 cc an hour. Echocardiogram showed ejection fraction of 65%, dilatation of the RV and the pulmonary artery pressure of around 55. The white cell count of 16.6 with a hemoglobin 9.8 and a platelet count of 395. Sodium is at 135, potassium is at 5.1, bicarbonate 37, BUN 60 with a creatinine of 1.08. AST is 412. ALT is at 1091. Total protein is at 5.7 with an albumin of 3.3. Remains on DuoNeb neb treatment [id number]. Remains on a combination of Perforomist and Pulmicort neb treatments twice a day and IV Solu-Medrol 60 mg every 6 hours. Remains on empiric antibiotic coverage with IV Rocephin. Remains on IV Solu- Medrol. Patient is off pressors for now. CAT scan of the abdomen and pelvis that was done at time of admission showed no significant intra-abdominal abnormalities. Left flank hematoma was essentially unchanged. The patient continues to have a stable hemoglobin and there is no significant drop in hemoglobin over the past 24 hours. He is post TAVR. He has an underlying rhythm that is sinus and the patient has a bundle branch block pattern. On 04/30/2025, the patient is being seen for a follow-up. Remains intubated on mechanical ventilator. The patient remains on propofol which is running at 50 mcg/kg/min and the patient is currently off paralytics. The morning blood gases showed a pH of 7.32 with a PCO2 of 80 and PO2 of 77. This was done on assist- control mode with a rate of 70, tidal volume of 400, FiO2 50% and PEEP of 5. Chest x-ray shows no acute pulmonary infiltrates. A drop in the respiratory rate was down to 20 and FiO2 was dropped down to 40%. Subsequent blood gas showed a pH of 7.23 with a PCO2 of 94 and PO2 of 101. The patient was riding the mechanical ventilator and the patient is deeply sedated. Will gradually wean down his propofol. Meanwhile, morning blood draw showed a elevated potassi um level and the patient had hyperkalemia. Potassium was at 6. The patient was given calcium gluconate, 10 units of insulin and Lokelma 10 mg. Subsequent potassium level improved. The the white cell count is at 19.3 with a hemoglobin 9.4 and a platelet count of 338. The sodium is at 139, most recent potassium level is down to 5.7, the serum bicarb is at 40, chloride is 96. The peak airway pressure is around 35. The patient is on vital high-protein at rate of 55 cc an hour. The patient is also on Lantus insulin for blood sugar control and the patient receiving Lantus 25 units and NovoLog 8 units 3 times daily and a sliding scale coverage. Remains on bronchodilators. Remains on steroids. Remains on Perforomist and Pulmicort nebulized treatments. Remains on empiric antibiotic coverage with IV Rocephin. Sputum sample is positive for Proteus mirabilis and haemophilus. On today's evaluation of 05/01/2025, the patient is being seen for a follow-up. The patient is off paralytics and the patient is currently on propofol running at 35 mcg/kg/min. The patient currently is on a mechanical ventilator assist- control mode at rate of 30, tidal volume of 400, FiO2 of 50% with a PEEP of 5. Patient has a pH of 7.33 with a PCO2 of 79 and PO2 of 80. Sputum positive for Proteus and haemophilus and the patient remains on IV Rocephin. Chest x-ray shows no evidence of pneumonia. Peak airway pressure is around 34. IV fluids are KVO. Fluid balance is -1.1 L. Cardiac rhythm is sinus. No pressors. The patient remains on vital protein at rate of 55 cc an hour. Remains on broncho dilators. Remains on IV Solu-Medrol. Remains on Lantus insulin 25 units along with NovoLog sliding scale coverage. Last flank and abdominal hematoma is unchanged extending to the scrotum. No significant swelling. No drop in the hemoglobin. The blood work from today shows a WBC count of 19.7, hemoglobin 9.2 and platelet count of 307. Serum bicarbonate is 43, sodium is 145, potassium is at 5.3, chloride is 99. 05/02/2025, the patient remains intubated on mechanical ventilator. The patient remains on propofol running at 25 mcg/kg/min. Chest x-ray shows pulm interstitial infiltrates bilaterally. The patient's sputum sample was positive for Proteus and haemophilus influenza. The patient was treated with IV Rocephin. Nevertheless, this morning, the patient noted to be febrile and vani led the fever workup will be done. Will repeat a sputum analysis. Will check a blood cultures. Antibiotics will be modified and the patient will be taken off Rocephin and started on IV cefepime. Patient will be also started on vancomycin pending further cultures. He is on assist-control mode of mechanical ventilation at rate of 30, tidal volume 400, FiO2 50% with a PEEP of 5. pH is at 7.35 with a PCO2 of 78 and PO2 of 86. Peak airway pressure is around 30. Fluid balance is -1.1 L over the past 24 hours. The patient remains on vital high-protein at rate of 71 cc an hour. Lantus for blood sugar control 30 units and the cardiac rhythm is sinus. IV fluids are currently at KVO. Rest of the blood work shows a white cell count of 16, hemoglobin 9.3 and a platelet count of 286. Sodium levels at 151, potassium level is at 5, bicarb is at 45, BUN 50 and creatinine is at 1.03. Blood sugars are 244. LFTs are improving with a drop in the AST and ALT level. COVID-19 testing has been negative. Procalcitonin level is at 0.97. On 05/03/2025, the patient is being seen for a follow-up. The patient remains intubated on a mechanical ventilator. This will be a extremely difficult wean as the patient advanced COPD. The patient remains on propofol at the rate of 35 mcg/kg/min. The sedation holiday was given failed as the patient became tachypneic, hypoxic, tachycardic and he went into cardiac arrhythmias in the form of SVT. Subsequently, the patient was placed back on sedation the patient remains on propofol. The patient remains on assist-control mode at rate of 30, tidal volume of 400, FiO2 50% with a PEEP of 5. Blood gas from today shows a pH of 7.38 with a PCO2 of 70 and PO2 of 60. Chest x-ray findings are essentially unchanged. The patient remains on IV antibiotics as the patient has grown haemophilus and Proteus in the sputum and the patient currently is on IV cefepime. He is also on vancomycin as an empiric antibiotic coverage. Awaiting follow-up sputum samples. Fluid balance is -930 cc over the past 24 hours. The patient is on vital high-protein at rate of 71 cc an hour. Lantus insulin at 30 units/day along with NovoLog 10 units with meal and sliding scale coverage. No pressors for now. Continues to have short runs of a flutter/SVT. Current c ardiac rhythm is sinus. Sodium levels at 155, potassium levels of 4.9, BUN 51 with a creatinine of 0.8. WBC count of 13.2, hemoglobin 9.7 and platelet count is at 275. IV fluids are currently at KVO. Seen today on 05/04/2025, patient remains in the ICU intubated and mechanically ventilated, on assist-control rate of 30 tidal volume 450 FiO2 50% and PEEP of 5 ABG showed a pO2 of 109 pCO2 68 pH of 7.38. Patient remains on D5W at 100 cc/h propofol 35 mcg/kg/min vital HP at 71 cc/h. Patient is also to receive free water 200 mL 4 times daily via orogastric tube. Patient apparently failed wean ing x 2 and he is not ready to be weaned mostly because of his mental status. Today I discussed his condition with the discussed the option of tracheostomy and PEG tube placement discussed the option of comfort care measures. The seems to be very inclined to proceed with tracheostomy and PEG tube placement and continue to try to wean after tracheostomy and PEG tube placement. Patient may actually require even placement after tracheostomy and PEG tube placement depending on his overall clinical status at the time. For now patient will be given trials of weaning from propofol as tolerated, and would like to assess mental status off sedation. And that seems to be difficult to do. Dr. Mchugh already saw the patient for possible tracheostomy and PEG tube placement, and will proceed to do so. Chest x-ray today showed small scattered reticular opacities unchanged, endotracheal tube seems to be high above the yakelin that needs to be advanced patient has a nasogastric tube in place. And he has a left internal jugular central line. Objective - Vital Signs Vital signs: Vital Signs Temp 99.9 F H 05/04/25 08:00 Pulse 100 05/04/25 11:00 Resp 37 H 05/04/25 11:00 BP 151/89 05/04/25 11:00 Pulse Ox 95 05/04/25 11:00 FiO2 45 05/04/25 09:22 Intake & Output 05/03/25 05/04/25 05/04/25 18:59 06:59 18:59 Intake Total 2041 2449.799 828.552 Output Total 965 945 625 Balance 1076 1504.799 203.552 Weight 95.1 kg Intake: IV 70 900 600 Dextrose 5% in Water 1, 900 500 000 ml @ 100 mls/hr IV . Q10H JÚNIOR Rx#:[id number] Sodium Chloride 0.9% 1, 70 000 ml @ 10 mls/hr IV . Q24H JÚNIOR Rx#:[id number] cefTRIAXone 2 gm In 100 Sodium Chloride 0.9% 50 ml @ 100 mls/hr IVPB Q24HR JÚNIOR Rx#:[id number] Intake, IV Titration 1100 536.799 56.552 Amount Dextrose 5% in Water 100 900 400 ml @ 618 mls/hr IV .Q10M ONE with Amiodarone 150 mg Rx#:[id number] propofoL 1,000 mg In 200 136.799 56.552 Empty Bag 1 bag @ 15 MCG/ KG/MIN 8.124 mls/hr IV . [id number] JÚNIOR Rx#:[id number] Tube Feeding 781 923 142 Other 90 90 30 Output: Urine 965 945 625 Other: Voiding Method Indwelling Catheter Indwelling Catheter Indwelling Catheter ABP, PAP, CO, CI - Last Documented Arterial Blood Pressure 147/60 - Exam General: Reveals 64-year-old white male intubated mechanically ventilated Derm: warm, dry, no rashes. Head: atraumatic, normocephalic, symmetric endotracheal tube and orogastric tube are intact. Eyes: PERRLA, EOMI, nonicteric. Mouth: Moist mucous membranes no mucous membrane lesions Cardiovascular: Distant S1-S2, no S3 gallop, no murmur Lungs: Diminished breath sound bilaterally no crackles rhonchi or wheezes Ext: no gross muscle atrophy, 1-2+ LE pitting edema, no contractures Neuro: Intubated sedated could not assess Psych: Intubated, sedated, could not assess - Labs CBC & Chem 7: 05/04/25 07:21 05/04/25 07:21 Labs: Abnormal Lab Results - Last 24 Hours (Table) 05/03/25 05/03/25 05/04/25 Range/Units 17:15 23:34 05:00 WBC (4.50-10.00) 10*3/uL RBC (4.40-5.60) 10*6/uL Hgb (13.0-17.0) g/dL Hct (39.6-50.0) % MCHC (32.0-37.0) g/dL Immature Gran # (0.00-0.04) 10*3/uL Neutrophils # (1.80-7.70) 10*3/uL Lymphocytes # (0.90-5.00) 10*3/uL Eosinophils # (0.04-0.35) 10*3/uL ABG pCO2 68 H (35-45) mmHg ABG pO2 109 H (83-108) mmHg ABG HCO3 41 H* (21-25) mmol/L ABG Total CO2 43 H (19-24) mmol/L ABG O2 Saturation 99.0 H (94-97) % Sodium (137-145) mmol/L Potassium (3.5-5.1) mmol/L Chloride (98-107) mmol/L Carbon Dioxide (22-30) mmol/L BUN (9-20) mg/dL Glucose (74-99) mg/dL POC Glucose (mg/dL) 301 H 335 H (70-110) mg/dL 05/04/25 05/04/25 05/04/25 Range/Units 05:37 07:21 07:21 WBC 13.95 H (4.50-10.00) 10*3/uL RBC 3.33 L (4.40-5.60) 10*6/uL Hgb 9.4 L (13.0-17.0) g/dL Hct 31.8 L (39.6-50.0) % MCHC 29.6 L (32.0-37.0) g/dL Immature Gran # 0.17 H (0.00-0.04) 10*3/uL Neutrophils # 12.81 H (1.80-7.70) 10*3/uL Lymphocytes # 0.27 L (0.90-5.00) 10*3/uL Eosinophils # 0.00 L (0.04-0.35) 10*3/uL ABG pCO2 (35-45) mmHg ABG pO2 (83-108) mmHg ABG HCO3 (21-25) mmol/L ABG Total CO2 (19-24) mmol/L ABG O2 Saturation (94-97) % Sodium 152 H (137-145) mmol/L Potassium 5.3 H (3.5-5.1) mmol/L Chloride 110 H (98-107) mmol/L Carbon Dioxide 37 H (22-30) mmol/L BUN 53 H (9-20) mg/dL Glucose 323 H (74-99) mg/dL POC Glucose (mg/dL) 336 H (70-110) mg/dL 05/04/25 Range/Units 11:28 WBC (4.50-10.00) 10*3/uL RBC (4.40-5.60) 10*6/uL Hgb (13.0-17.0) g/dL Hct (39.6-50.0) % MCHC (32.0-37.0) g/dL Immature Gran # (0.00-0.04) 10*3/uL Neutrophils # (1.80-7.70) 10*3/uL Lymphocytes # (0.90-5.00) 10*3/uL Eosinophils # (0.04-0.35) 10*3/uL ABG pCO2 (35-45) mmHg ABG pO2 (83-108) mmHg ABG HCO3 (21-25) mmol/L ABG Total CO2 (19-24) mmol/L ABG O2 Saturation (94-97) % Sodium (137-145) mmol/L Potassium (3.5-5.1) mmol/L Chloride (98-107) mmol/L Carbon Dioxide (22-30) mmol/L BUN (9-20) mg/dL Glucose (74-99) mg/dL POC Glucose (mg/dL) 273 H (70-110) mg/dL Microbiology - Last 24 Hours (Table) 05/02/25 11:46 Blood Culture - Preliminary Blood 04/27/25 23:46 Blood Culture - Final Blood Assessment and Plan Assessment: Impression: Cardiac arrest requiring intubation mechanical ventilation patient had brief resuscitation in the emergency room he received a round of epinephrine and a round of CPR. Acute hypoxic and hypercapnic respiratory failure secondary to cardiac arrest and COPD exacerbation Acute exacerbation of COPD Pneumonia secondary to haemophilus influenza and Proteus as noted on sputum cultures Left flank hematoma status post TAVR Advanced COPD and chronic hypoxic respiratory failure Obstructive sleep apnea syndrome on CPAP on outpatient basis Severe aortic stenosis and previous TAVR on 04/15/2025 Peripheral artery disease with history of left femoral artery occlusion Benign essential hypertension Type 2 diabetes Acute transaminitis, improving Hyperkalemia, resolved Hyperchloremic hypernatremia, being addressed. Recommendation: Continue ventilatory support Continue bronchodilators Continue antibiotics but discontinue vancomycin based on the sputum cultures Continue daily assessment of mental status off propofol if possible Proceed with tracheostomy and PEG tube placement, this was discussed with the , and she is agreeable to proceed with this. Continue nutritional support Continue GI and DVT prophylaxis Continue Lantus insulin and sliding scale coverage Use norepinephrine for hemodynamic support if necessary. Daily assessment of mental status off sedation and if appropriate trials of weaning with pressure support and CPAP Overall clinical picture is extremely poor patient remains critically ill Critical care time is 35 minutes was updated on his condition today and answered all her questions. Time with Patient: Greater than 30
--- NOTE | 2025-05-04 15:10 | P.PN ---
Subjective Progress Note Date: 05/04/25 Hospital Course: 64 year old M with PMH of COPD on 2L home O2, DM, HTN, GERD, HLD presents to the ED for SOB. History is obtained from his at bedside. Patient recently underwent TAVR on 04/15. Surgery was complicated with left flank hematoma. He had been doing well since his surgery. Over the past day, he reported increased shortness of breath not relieved with nebulized treatments. This prompted him to come to the ED. In the ED, he was noted to have agonal breathing and subsequently lost his pulse. [facility] was called. He underwent high quality chest compressions, received 1 round of Epinephrine and intubated by Dr. Glass. ROSC was achieved. EKG showed sinus tachycardia with RBBB,CT brain no acute process,CXR small L pleural effusion,CTA chest no PE,CT AP showed stable left flank matoma Patient was admitted to ICU for further workup and management. Initially started on Zosyn IV for treatment on PNA. Procal 0.97. He was on Levophed for a short period of time initially. Sputum Cx grew Proteus and H. influenzae. Zosyn switched to Rocephin on 04/29. He started to spike fevers as high as 102.2F on 05/01, he was re-cultured and antibiotics was switched to Vancomycin and Cefepime. Elevated Troponin of 0.107, 0.14, 0.214 with EKG showing sinus tachycardia and RBBB. Echo showed EF 65-70% with severe pulmonary hypertension. Cardiology recommending no further workup. CT surgery consulted as well given recent TAVR on 04/15, recommending no surgical intervention. He has been difficult to wean off the ventilator. 05/04: Seen and examined at bedside, patient's present during exam. Patient is intubated, sedation was stopped around 9:30 AM for sedation holidays. Cont inued on broad-spectrum antibiotics with vancomycin and cefepime SOT 05/02. Patient continues to spike fever Tmax 101.2 this afternoon, WBC trending down 13.9, hemoglobin stable 9.4, ABG with normal pH, PaO2 109, pCO2 68, sodium 152, potassium 5.3, bicarb 37, creatinine normal, hyperglycemic. Will adjust insulin based on 24 hours requirement of 102 units, discussed with RN. Chest x-ray showed no significant changes. Vitals Signs Reviewed. General: [Intubated, sedated Derm: [warm], [dry] Head: [atraumatic], [normocephalic], [symmetric] Eyes: [EOMI], [no lid lag], [anicteric sclera] Mouth: [no lip lesion], [mucus membranes moist], ETT in place Cardiovascular: [S1S2 reg], [no murmur] Lungs: [Bilateral breath sounds, rhonchi present bilaterally Abdominal: [soft], [ nontender to palpation], [no guarding], [no appreciable organomegaly] Ext: [no gross muscle atrophy bilateral upper extremity edema [no contractures] Neuro: [Sedated Psych: [Intubated sedated Assessment and Plan: Cardiac arrest status post ROSC, likely due to COPD exacerbation Acute hypoxic hypercapnic respiratory failure due to COPD exacerbation, cardiac arrest requiring mechanical ventilation Haemophilus influenza and Proteus pneumonia plan -Continue vancomycin pharmacy to dose, cefepime 2 g IV 3 times daily SOT 05/02 -MRSA negative, however, patient continues to spike fever, awaiting final blood cultures from 05/02 -Continue Tylenol 650 mg p.o. every 6 hours as needed for fever -ulmicort 1mg INH BID. Performist 20 mcg INH BID. Solumedrol 60 mg IV Q6H. Pulmonary on board. Cardiology and CT surgery recommend no further workup. -Continue aspirin 81 mg daily, simvastatin 80 mg p.o. 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 Nutrition Left flank hematoma: Stable per CT CHET on CPAP Hypertension PAD Severe aortic stenosis status post TAVR 04/15/2025 Normocytic anemia with Thrombocytosis: Likely due to left flank hematoma. Monitor and trend. Hyperbilirubinemia with Transaminitis: Likely due to hypotension. Improving. Trend. Resolved: Hypotension, HyperK DVT ppx: Lovenox Code status full code Anticipated discharge place: [facility] Anticipated discharge time: 80 Objective - Vital Signs Vital signs: Vital Signs Temp 101.2 F H 05/04/25 12:00 Pulse 100 05/04/25 14:00 Resp 31 H 05/04/25 14:00 BP 142/87 05/04/25 14:00 Pulse Ox 96 05/04/25 14:00 FiO2 45 05/04/25 12:50 Intake & Output 05/03/25 05/04/25 05/04/25 18:59 06:59 18:59 Intake Total 2041 2449.799 1368.552 Output Total 965 945 925 Balance 1076 1504.799 443.552 Weight 95.1 kg 95.1 kg Intake: IV 70 900 930 Dextrose 5% in Water 1, 900 800 000 ml @ 100 mls/hr IV . Q10H JÚNIOR Rx#:[id number] Sodium Chloride 0.9% 1, 70 30 000 ml @ 10 mls/hr IV . Q24H JÚNIOR Rx#:[id number] cefTRIAXone 2 gm In 100 Sodium Chloride 0.9% 50 ml @ 100 mls/hr IVPB Q24HR JÚNIOR Rx#:[id number] Intake, IV Titration 1100 536.799 56.552 Amount Dextrose 5% in Water 100 900 400 ml @ 618 mls/hr IV .Q10M ONE with Amiodarone 150 mg Rx#:[id number] propofoL 1,000 mg In 200 136.799 56.552 Empty Bag 1 bag @ 15 MCG/ KG/MIN 8.124 mls/hr IV . [id number] JÚNIOR Rx#:[id number] Tube Feeding 781 923 352 Other 90 90 30 Output: Urine 965 945 925 Other: Voiding Method Indwelling Catheter Indwelling Catheter Indwelling Catheter ABP, PAP, CO, CI - Last Documented Arterial Blood Pressure 147/60 - Labs CBC & Chem 7: 05/04/25 07:21 05/04/25 07:21 Labs: Abnormal Lab Results - Last 24 Hours (Table) 05/03/25 05/03/25 05/04/25 Range/Units 17:15 23:34 05:00 WBC (4.50-10.00) 10*3/uL RBC (4.40-5.60) 10*6/uL Hgb (13.0-17.0) g/dL Hct (39.6-50.0) % MCHC (32.0-37.0) g/dL Immature Gran # (0.00-0.04) 10*3/uL Neutrophils # (1.80-7.70) 10*3/uL Lymphocytes # (0.90-5.00) 10*3/uL Eosinophils # (0.04-0.35) 10*3/uL ABG pCO2 68 H (35-45) mmHg ABG pO2 109 H (83-108) mmHg ABG HCO3 41 H* (21-25) mmol/L ABG Total CO2 43 H (19-24) mmol/L ABG O2 Saturation 99.0 H (94-97) % Sodium (137-145) mmol/L Potassium (3.5-5.1) mmol/L Chloride (98-107) mmol/L Carbon Dioxide (22-30) mmol/L BUN (9-20) mg/dL Glucose (74-99) mg/dL POC Glucose (mg/dL) 301 H 335 H (70-110) mg/dL 05/04/25 05/04/25 05/04/25 Range/Units 05:37 07:21 07:21 WBC 13.95 H (4.50-10.00) 10*3/uL RBC 3.33 L (4.40-5.60) 10*6/uL Hgb 9.4 L (13.0-17.0) g/dL Hct 31.8 L (39.6-50.0) % MCHC 29.6 L (32.0-37.0) g/dL Immature Gran # 0.17 H (0.00-0.04) 10*3/uL Neutrophils # 12.81 H (1.80-7.70) 10*3/uL Lymphocytes # 0.27 L (0.90-5.00) 10*3/uL Eosinophils # 0.00 L (0.04-0.35) 10*3/uL ABG pCO2 (35-45) mmHg ABG pO2 (83-108) mmHg ABG HCO3 (21-25) mmol/L ABG Total CO2 (19-24) mmol/L ABG O2 Saturation (94-97) % Sodium 152 H (137-145) mmol/L Potassium 5.3 H (3.5-5.1) mmol/L Chloride 110 H (98-107) mmol/L Carbon Dioxide 37 H (22-30) mmol/L BUN 53 H (9-20) mg/dL Glucose 323 H (74-99) mg/dL POC Glucose (mg/dL) 336 H (70-110) mg/dL 05/04/25 Range/Units 11:28 WBC (4.50-10.00) 10*3/uL RBC (4.40-5.60) 10*6/uL Hgb (13.0-17.0) g/dL Hct (39.6-50.0) % MCHC (32.0-37.0) g/dL Immature Gran # (0.00-0.04) 10*3/uL Neutrophils # (1.80-7.70) 10*3/uL Lymphocytes # (0.90-5.00) 10*3/uL Eosinophils # (0.04-0.35) 10*3/uL ABG pCO2 (35-45) mmHg ABG pO2 (83-108) mmHg ABG HCO3 (21-25) mmol/L ABG Total CO2 (19-24) mmol/L ABG O2 Saturation (94-97) % Sodium (137-145) mmol/L Potassium (3.5-5.1) mmol/L Chloride (98-107) mmol/L Carbon Dioxide (22-30) mmol/L BUN (9-20) mg/dL Glucose (74-99) mg/dL POC Glucose (mg/dL) 273 H (70-110) mg/dL Microbiology - Last 24 Hours (Table) 05/02/25 11:46 Nasal Screen MRSA/MSSA - Final Nasal Swab 05/02/25 11:46 Blood Culture - Preliminary Blood 04/27/25 23:46 Blood Culture - Final Blood
--- NOTE | 2025-05-04 17:32 | P.PN ---
Subjective Progress Note Date: 05/04/25 Principal diagnosis: Respiratory failure Patient remains on the ventilator. Sedation was apparently held this morning. Patient still unresponsive. Tolerating tube feeds at goal. Objective - Vital Signs Vital signs: Vital Signs Temp 101.5 F H 05/04/25 16:00 Pulse 99 05/04/25 17:00 Resp 31 H 05/04/25 17:00 BP 135/79 05/04/25 17:00 Pulse Ox 98 05/04/25 17:00 FiO2 45 05/04/25 16:41 Intake & Output 05/03/25 05/04/25 05/04/25 18:59 06:59 18:59 Intake Total 2041 2449.799 1368.552 Output Total 965 945 925 Balance 1076 1504.799 443.552 Weight 95.1 kg 95.1 kg Intake: IV 70 900 930 Dextrose 5% in Water 1, 900 800 000 ml @ 100 mls/hr IV . Q10H J[facility]NIOR Rx#:[id number] Sodium Chloride 0.9% 1, 70 30 000 ml @ 10 mls/hr IV . Q24H JÚNIOR Rx#:[id number] cefTRIAXone 2 gm In 100 Sodium Chloride 0.9% 50 ml @ 100 mls/hr IVPB Q24HR JÚNIOR Rx#:[id number] Intake, IV Titration 1100 536.799 56.552 Amount Dextrose 5% in Water 100 900 400 ml @ 618 mls/hr IV .Q10M ONE with Amiodarone 150 mg Rx#:[id number] propofoL 1,000 mg In 200 136.799 56.552 Empty Bag 1 bag @ 15 MCG/ KG/MIN 8.124 mls/hr IV . [id number] JÚNIOR Rx#:[id number] Tube Feeding 781 923 352 Other 90 90 30 Output: Urine 965 945 925 Other: Voiding Method Indwelling Catheter Indwelling Catheter Indwelling Catheter ABP, PAP, CO, CI - Last Documented Arterial Blood Pressure 147/60 - Exam Abdomen: Soft, nontender, nondistended - Labs CBC & Chem 7: 05/04/25 07:21 05/04/25 07:21 Labs: Abnormal Lab Results - Last 24 Hours (Table) 05/03/25 05/04/25 05/04/25 Range/Units 23:34 05:00 05:37 WBC (4.50-10.00) 10*3/uL RBC (4.40-5.60) 10*6/uL Hgb (13.0-17.0) g/dL Hct (39.6-50.0) % MCHC (32.0-37.0) g/dL Immature Gran # (0.00-0.04) 10*3/uL Neutrophils # (1.80-7.70) 10*3/uL Lymphocytes # (0.90-5.00) 10*3/uL Eosinophils # (0.04-0.35) 10*3/uL ABG pCO2 68 H (35-45) mmHg ABG pO2 109 H (83-108) mmHg ABG HCO3 41 H* (21-25) mmol/L ABG Total CO2 43 H (19-24) mmol/L ABG O2 Saturation 99.0 H (94-97) % Sodium (137-145) mmol/L Potassium (3.5-5.1) mmol/L Chloride (98-107) mmol/L Carbon Dioxide (22-30) mmol/L BUN (9-20) mg/dL Glucose (74-99) mg/dL POC Glucose (mg/dL) 335 H 336 H (70-110) mg/dL 05/04/25 05/04/25 05/04/25 Range/Units 07:21 07:21 11:28 WBC 13.95 H (4.50-10.00) 10*3/uL RBC 3.33 L (4.40-5.60) 10*6/uL Hgb 9.4 L (13.0-17.0) g/dL Hct 31.8 L (39.6-50.0) % MCHC 29.6 L (32.0-37.0) g/dL Immature Gran # 0.17 H (0.00-0.04) 10*3/uL Neutrophils # 12.81 H (1.80-7.70) 10*3/uL Lymphocytes # 0.27 L (0.90-5.00) 10*3/uL Eosinophils # 0.00 L (0.04-0.35) 10*3/uL ABG pCO2 (35-45) mmHg ABG pO2 (83-108) mmHg ABG HCO3 (21-25) mmol/L ABG Total CO2 (19-24) mmol/L ABG O2 Saturation (94-97) % Sodium 152 H (137-145) mmol/L Potassium 5.3 H (3.5-5.1) mmol/L Chloride 110 H (98-107) mmol/L Carbon Dioxide 37 H (22-30) mmol/L BUN 53 H (9-20) mg/dL Glucose 323 H (74-99) mg/dL POC Glucose (mg/dL) 273 H (70-110) mg/dL Microbiology - Last 24 Hours (Table) 05/02/25 11:46 Nasal Screen MRSA/MSSA - Final Nasal Swab 05/02/25 11:46 Blood Culture - Preliminary Blood Assessment and Plan (1) Respiratory failure Narrative/Plan: Patient remains on the ventilator. Spoke with the patient's by phone. Risks of the tracheostomy and PEG tube discussed. They are still undecided if they would like to proceed with the procedure or not. They plan to have further discussions amongst themselves this evening and will let me know. Risks of bleeding, infection, catheter misplacement, pneumothorax, perforation, prolonged respiratory failure, fistula, reviewed as risks. She understands and will notify me of her decision. Current Visit: Yes Status: Acute Code(s): J96.90 - RESPIRATORY FAILURE, UNSP, UNSP W HYPOXIA OR HYPERCAPNIA SNOMED Code(s): 998476387
[2025-05-04 17:45] LABS: Glucose,Whole Blood 291 mg/dL (70-110)
[2025-05-04] MEDS: INSULIN LISPRO (HumaLOG) 100 UNIT/ML 10 mL VL SQ SCH (18:27)
[2025-05-04 19:49] LABS: Glucose,Whole Blood 295 mg/dL (70-110)
[2025-05-04] MEDS ORDERED: VANCOMYCIN 1,750 MG in SODIUM CHLORIDE 0.9% 500 ML 500 ML IVPB SCH (21:00)
[2025-05-04] MEDS: INSULIN GLARGINE (LANTUS) 100 UNIT/ML SYR SQ SCH (21:19)
[2025-05-04 21:37] LABS: Glucose,Whole Blood 286 mg/dL (70-110)
[2025-05-04 23:50] LABS: Glucose,Whole Blood 269 mg/dL (70-110)
[2025-05-05 05:25] LABS: ABG PCO2 65 mmHg (35-45); ABG PH 7.41 (7.35-7.45); ABG PO2 84 mmHg (83-108); ABG TCO2 43 mmol/L (19-24); Allen Test Performed? Yes
[2025-05-05 05:27] LABS: ABG HCO3 41 mmol/L (21-25)
[2025-05-05 06:14] LABS: Glucose,Whole Blood 250 mg/dL (70-110)
[2025-05-05 06:26] LABS: HCT 32.1 % (39.6-50.0); HGB 9.4 g/dL (13.0-17.0); MCH 27.5 pg (27.0-32.0); MCHC 29.3 g/dL (32.0-37.0); MCV 93.9 fL (80.0-97.0); Platelet Count 255 10*3/uL (140-440); RBC 3.42 10*6/uL (4.40-5.60); RDW 15.3 % (11.5-14.5); WBC 16.48 10*3/uL (4.50-10.00)
--- NOTE | 2025-05-05 06:28 | XR ---
EXAMINATION TYPE: XR chest 1V DATE OF EXAM: 05/05/2025 5:24 AM COMPARISON: Chest radiograph from one day prior. CLINICAL INDICATION: Male, 64 years old with history of copd; [facility] TECHNIQUE: XR chest 1V Frontal view of the chest. FINDINGS: Lungs/Pleura: Scattered subtle reticular and hazy opacities. No evidence of pneumothorax, focal conso lidation or pleural effusion. Pulmonary vascularity: Unremarkable. Heart/mediastinum: Cardiomediastinal silhouette is unremarkable. Post aortic valve repair changes. Musculoskeletal: No acute osseous pathology. Other findings: None Lines/Tubes: Endotracheal tube with distal tip 8.1 cm above the yakelin. Nasogastric tube with its distal tip and side-port projecting under the diaphragm. Left internal jugular central venous catheter with distal tip at the cavoatrial junction. IMPRESSION: 1. Endotracheal tube 8.1 cm above the yakelin consider advancement of 4 cm for optimal placement. 2. Similar Scattered reticular opacities are unchanged [facility], , 05/05/2025 6:26 AM
[2025-05-05 06:54] LABS: African American GFR (CKD) >90 (>60 ml/min/1.73 sqM); Anion Gap 3 mmol/L; Blood Urea Nitrogen 50 mg/dL (9-20); Calcium 9.1 mg/dL (8.4-10.2); Carbon Dioxide 39 mmol/L (22-30); Chloride 106 mmol/L (98-107); Glucose 220 mg/dL (74-99); Non-African American GFR(CKD) >90 (>60 ml/min/1.73 sqM); Potassium 5.5 mmol/L (3.5-5.1); Sodium 148 mmol/L (137-145)
[2025-05-05 10:09] LABS: African American GFR (CKD) >90 (>60 ml/min/1.73 sqM); Non-African American GFR(CKD) >90 (>60 ml/min/1.73 sqM)
[2025-05-05] MEDS: SODIUM ZIRCONIUM CYCLOSILICATE 10 GM PACKET PO ONE (10:23)
[2025-05-05 11:44] LABS: Glucose,Whole Blood 238 mg/dL (70-110)
[2025-05-05] MEDS: INSULIN LISPRO (HumaLOG) 100 UNIT/ML 10 mL VL SQ SCH (11:59)
--- NOTE | 2025-05-05 12:42 | P.PN ---
Subjective Progress Note Date: 05/05/25 Principal diagnosis: Cardiac arrest A 64-year-old male patient presented to the emergency department with acute respiratory failure. The patient was unresponsive and in respiratory arrest. CPR was immediately initiated. The patient was given a round of epinephrine and CPR and the patient was intubated in the emergency department. He had return of spontaneous circulation. I reviewed the initial EKG post resuscitation and the patient was in normal sinus rhythm with a right bundle branch block pattern. The initial rhythm at the time of his cardiac arrest is not known. Nevertheless, I suspect that the patient had an acute hypoxic/hypercapnic respiratory failure as the patient postintubation was actively bronchospastic and wheezy. I saw the patient immediately post intubation and the patient had very limited air entry bilaterally, active bronchospastic and wheezy and while being on the mechanical ventilator, the patient's peak airway pressure was 50 and the blood gas showed a pH of 7.0 with a PCO2 more than 98 and a pO2 of 232 and this was done at that appointment for 50, rate of 20, FiO2 100% with a PEEP of 5. The chest x-ray was reviewed and it showed a small left-sided pleural effusion. The patient underwent a CT of the chest and a CAT scan of the ab domen. CT of the chest showed no evidence of any pulmonary embolism and the patient had no filling defects. No mediastinal lymphadenopathy or any other acute cardiopulmonary abnormalities. Lungs were essentially clear. CAT scan of the abdomen and pelvis showed left flank hematoma present since 04/22/2025 and this occurred following a TAVR procedure. The patient had a low-density lesion along the left lateral hemipelvis with some mild stranding measuring 7.7 x 4.5 x 13.4 cm in size, likely presenting an intramuscular seroma without any free fluid in the pelvis. Findings were essentially similar compared to the earlier CAT scan on 04/22/2025. No other abnormalities noted. CAT scan of the brain showed no acute intracranial abnormalities. Blood work showed a white cell count of 18.4 with a hemoglobin 9.5 and a platelet count of 516. Normal coagulation profile. K levels of 5.6, bicarb is at 33 with a BUN of 21 and creatinine 0.8. Lactic acid level was at 3.1. Troponins were 0.1 and 0.1 respectively x 2 with a proBNP level of 1000. BUN is 21 with a creatinine of 0.8 and UA was also noted with 4 WBCs. Based on his ongoing hypoxic respiratory failure, high airway pressures and severe bronchospasm wheezing, the patient was started on DuoNeb nebulizer treatments [id number], IV Solu-Medrol and patient was kept on propofol and the patient was also started on paralytics with Nimbex. IV fluids are currently running at the rate of 100 cc of normal saline and the patient is also on low- dose norepinephrine for hemodynamic support. 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 04/28/2025, the patient is being seen for a follow-up. The patient remains intubated on a mechanical ventilator. This morning, the patient sedated with propofol running at 50 mcg/kg/min and Nimbex at 1 mcg/kg/min. Is adequately sedated and paralyzed. He remains on mechanical ventilator, assist-control mode at rate of 30, tidal volume of 400, FiO2 50% with a PEEP of 5. Peak airway pressure is 33. The blood gas showed a pH of 7.24 with a PCO2 of 76 and PO2 of 82. Chest x-ray shows no acute abnormalities. Orotracheal tube was pushed in and it seems to be in satisfactory position. He has some interstitial opacities bilaterally along with background COPD. NG tube is not clearly seen. The patient is on normal saline at rate of 100 cc an hour. Urine output is in order of 40 cc an hour. Fluid balance is +712 cc over the past 24 hours. He is on low-dose norepinephrine running at 0.01 mcg/kg/min. The patient has been COPD and the patient is oxygen dependent and steroid-dependent outpatient basis the patient has been taking 50 mg of prednisone on an outpatient basis. WBC count is at 19 with a hemoglobin 10.2 and a platelet count of 410. Sodium is at 136, potassium is at 5.2, bicarb is at 34, BUN is 40 with a creatinine of 1.1. LFTs are abnormal with an AST of 1110 [place] [address] and a normal alkaline phosphatase. Blood sugar slightly elevated due to steroid use and the patient is on insulin sliding scale coverage. The patient is also on empiric antibiotic coverage with IV Zosyn. The left flank and abdominal hematoma remains unchanged. On 04/29/2025, the patient remains intubated on the mechanical ventilator. The patient is on propofol running at 50 mcg/kg/min and the patient is on Nimbex running at 2 mcg/kg/min. The patient is adequately sedated and paralyzed. This morning, he is on assist-control mode at rate of 30, tidal volume of 400, FiO2 50% with a PEEP of 5. The blood gas showed a pH of 7.28 with a PCO2 of 75 and PO2 of 96. The peak airway pressure is 34. Chest x-ray shows no acute abnormalities. Her procalcitonin level was at 0.97. The patient remains on vi heena high-protein at rate of 40 cc an hour. Fluid balance is +1.1 L over the past 24 hours and the patient is on normal Saint rate of 50 cc an hour. Echocardiogram showed ejection fraction of 65%, dilatation of the RV and the pulmonary artery pressure of around 55. The white cell count of 16.6 with a hemoglobin 9.8 and a platelet count of 395. Sodium is at 135, potassium is at 5.1, bicarbonate 37, BUN 60 with a creatinine of 1.08. AST is 412. ALT is at 1091. Total protein is at 5.7 with an albumin of 3.3. Remains on DuoNeb neb treatment [id number]. Remains on a combination of Perforomist and Pulmicort neb treatments twice a day and IV Solu-Medrol 60 mg every 6 hours. Remains on empiric antibiotic coverage with IV Rocephin. Remains on IV Solu- Medrol. Patient is off pressors for now. CAT scan of the abdomen and pelvis that was done at time of admission showed no significant intra-abdominal abnormalities. Left flank hematoma was essentially unchanged. The patient continues to have a stable hemoglobin and there is no significant drop in hemoglobin over the past 24 hours. He is post TAVR. He has an underlying rhythm that is sinus and the patient has a bundle branch block pattern. On 04/30/2025, the patient is being seen for a follow-up. Remains intubated on mechanical ventilator. The patient remains on propofol which is running at 50 mcg/kg/min and the patient is currently off paralytics. The morning blood gases showed a pH of 7.32 with a PCO2 of 80 and PO2 of 77. This was done on assist- control mode with a rate of 70, tidal volume of 400, FiO2 50% and PEEP of 5. Chest x-ray shows no acute pulmonary infiltrates. A drop in the respiratory rate was down to 20 and FiO2 was dropped down to 40%. Subsequent blood gas showed a pH of 7.23 with a PCO2 of 94 and PO2 of 101. The patient was riding the mechanical ventilator and the patient is deeply sedated. Will gradually wean down his propofol. Meanwhile, morning blood draw showed a elevated potassi um level and the patient had hyperkalemia. Potassium was at 6. The patient was given calcium gluconate, 10 units of insulin and Lokelma 10 mg. Subsequent potassium level improved. The the white cell count is at 19.3 with a hemoglobin 9.4 and a platelet count of 338. The sodium is at 139, most recent potassium level is down to 5.7, the serum bicarb is at 40, chloride is 96. The peak airway pressure is around 35. The patient is on vital high-protein at rate of 55 cc an hour. The patient is also on Lantus insulin for blood sugar control and the patient receiving Lantus 25 units and NovoLog 8 units 3 times daily and a sliding scale coverage. Remains on bronchodilators. Remains on steroids. Remains on Perforomist and Pulmicort nebulized treatments. Remains on empiric antibiotic coverage with IV Rocephin. Sputum sample is positive for Proteus mirabilis and haemophilus. On today's evaluation of 05/01/2025, the patient is being seen for a follow-up. The patient is off paralytics and the patient is currently on propofol running at 35 mcg/kg/min. The patient currently is on a mechanical ventilator assist- control mode at rate of 30, tidal volume of 400, FiO2 of 50% with a PEEP of 5. Patient has a pH of 7.33 with a PCO2 of 79 and PO2 of 80. Sputum positive for Proteus and haemophilus and the patient remains on IV Rocephin. Chest x-ray shows no evidence of pneumonia. Peak airway pressure is around 34. IV fluids are KVO. Fluid balance is -1.1 L. Cardiac rhythm is sinus. No pressors. The patient remains on vital protein at rate of 55 cc an hour. Remains on broncho dilators. Remains on IV Solu-Medrol. Remains on Lantus insulin 25 units along with NovoLog sliding scale coverage. Last flank and abdominal hematoma is unchanged extending to the scrotum. No significant swelling. No drop in the hemoglobin. The blood work from today shows a WBC count of 19.7, hemoglobin 9.2 and platelet count of 307. Serum bicarbonate is 43, sodium is 145, potassium is at 5.3, chloride is 99. 05/02/2025, the patient remains intubated on mechanical ventilator. The patient remains on propofol running at 25 mcg/kg/min. Chest x-ray shows pulm interstitial infiltrates bilaterally. The patient's sputum sample was positive for Proteus and haemophilus influenza. The patient was treated with IV Rocephin. Nevertheless, this morning, the patient noted to be febrile and vani led the fever workup will be done. Will repeat a sputum analysis. Will check a blood cultures. Antibiotics will be modified and the patient will be taken off Rocephin and started on IV cefepime. Patient will be also started on vancomycin pending further cultures. He is on assist-control mode of mechanical ventilation at rate of 30, tidal volume 400, FiO2 50% with a PEEP of 5. pH is at 7.35 with a PCO2 of 78 and PO2 of 86. Peak airway pressure is around 30. Fluid balance is -1.1 L over the past 24 hours. The patient remains on vital high-protein at rate of 71 cc an hour. Lantus for blood sugar control 30 units and the cardiac rhythm is sinus. IV fluids are currently at KVO. Rest of the blood work shows a white cell count of 16, hemoglobin 9.3 and a platelet count of 286. Sodium levels at 151, potassium level is at 5, bicarb is at 45, BUN 50 and creatinine is at 1.03. Blood sugars are 244. LFTs are improving with a drop in the AST and ALT level. COVID-19 testing has been negative. Procalcitonin level is at 0.97. On 05/03/2025, the patient is being seen for a follow-up. The patient remains intubated on a mechanical ventilator. This will be a extremely difficult wean as the patient advanced COPD. The patient remains on propofol at the rate of 35 mcg/kg/min. The sedation holiday was given failed as the patient became tachypneic, hypoxic, tachycardic and he went into cardiac arrhythmias in the form of SVT. Subsequently, the patient was placed back on sedation the patient remains on propofol. The patient remains on assist-control mode at rate of 30, tidal volume of 400, FiO2 50% with a PEEP of 5. Blood gas from today shows a pH of 7.38 with a PCO2 of 70 and PO2 of 60. Chest x-ray findings are essentially unchanged. The patient remains on IV antibiotics as the patient has grown haemophilus and Proteus in the sputum and the patient currently is on IV cefepime. He is also on vancomycin as an empiric antibiotic coverage. Awaiting follow-up sputum samples. Fluid balance is -930 cc over the past 24 hours. The patient is on vital high-protein at rate of 71 cc an hour. Lantus insulin at 30 units/day along with NovoLog 10 units with meal and sliding scale coverage. No pressors for now. Continues to have short runs of a flutter/SVT. Current c ardiac rhythm is sinus. Sodium levels at 155, potassium levels of 4.9, BUN 51 with a creatinine of 0.8. WBC count of 13.2, hemoglobin 9.7 and platelet count is at 275. IV fluids are currently at KVO. Seen today on 05/04/2025, patient remains in the ICU intubated and mechanically ventilated, on assist-control rate of 30 tidal volume 450 FiO2 50% and PEEP of 5 ABG showed a pO2 of 109 pCO2 68 pH of 7.38. Patient remains on D5W at 100 cc/h propofol 35 mcg/kg/min vital HP at 71 cc/h. Patient is also to receive free water 200 mL 4 times daily via orogastric tube. Patient apparently failed wean ing x 2 and he is not ready to be weaned mostly because of his mental status. Today I discussed his condition with the discussed the option of tracheostomy and PEG tube placement discussed the option of comfort care measures. The seems to be very inclined to proceed with tracheostomy and PEG tube placement and continue to try to wean after tracheostomy and PEG tube placement. Patient may actually require even placement after tracheostomy and PEG tube placement depending on his overall clinical status at the time. For now patient will be given trials of weaning from propofol as tolerated, and would like to assess mental status off sedation. And that seems to be difficult to do. Dr. Mchugh already saw the patient for possible tracheostomy and PEG tube placement, and will proceed to do so. Chest x-ray today showed small scattered reticular opacities unchanged, endotracheal tube seems to be high above the yakelin that needs to be advanced patient has a nasogastric tube in place. And he has a left internal jugular central line. Patient was seen today on 05/05/2025, remains intubated and mechanically ventilated. He is on assist-control rate of 30 tidal volume 450 FiO2 45%, PEEP of 5. ABG showed a pO2 of 84 pCO2 65 pH of 7.41, patient is arousable, follows simple instructions but he is profoundly weak. Family is at bedside, and we discussed the option of tracheostomy versus comfort care, would like to proceed with tracheostomy and PEG tube placement, and we will let general surgery aware of this. His WBC count is 16.4 hemoglobin 9.4 electrolytes are normal potassium is a bit high at 5.5, BUN is 50 creatinine 0.67. His sputum was positive for Proteus and for haemophilus. Patient remains on cefepime. Chest x-ray showed small scattered reticular opacities, basically unchanged. Objective - Vital Signs Vital signs: Vital Signs Temp 99.2 F 05/05/25 12:00 Pulse 98 05/05/25 12:00 Resp 30 H 05/05/25 12:00 BP 133/83 05/05/25 12:00 Pulse Ox 95 05/05/25 12:00 FiO2 45 05/05/25 12:00 Intake & Output 05/04/25 05/05/25 05/05/25 18:59 06:59 18:59 Intake Total 2218.552 2520 910 Output Total 1400 1475 510 Balance 816.901 4491 400 Weight 95.1 kg 98.5 kg Intake: IV 1470 1420 650 Cefepime 2 gm In Sodium 100 100 Chloride 0.9% 100 ml @ 25 mls/hr IVPB Q8H JÚNIOR Rx#: [id number] Dextrose 5% in Water 1, 1200 1200 500 000 ml @ 100 mls/hr IV . Q10H J[facility] Rx#:[id number] Sodium Chloride 0.9% 1, 70 120 50 000 ml @ 10 mls/hr IV . Q24H J[facility] Rx#:[id number] cefTRIAXone 2 gm In 200 Sodium Chloride 0.9% 50 ml @ 100 mls/hr IVPB Q24HR J[facility] Rx#:[id number] Intake, IV Titration 56.552 Amount propofoL 1,000 mg In 56.552 Empty Bag 1 bag @ 15 MCG/ KG/MIN 8.124 mls/hr IV . [id number] J[facility] Rx#:[id number] Oral 50 Tube Feeding 632 700 210 Other 60 400 Output: Urine 1400 1475 510 Other: Voiding Method Indwelling Catheter Indwelling Catheter Indwelling Catheter ABP, PAP, CO, CI - Last Documented Arterial Blood Pressure 147/60 - Exam General: Reveals 64-year-old white male intubated mechanically ventilated, arousable, follows very simple instructions but profoundly weak Derm: warm, dry, no rashes. Head: atraumatic, normocephalic, symmetric endotracheal tube and orogastric tube are intact. Eyes: PERRLA, EOMI, nonicteric. Mouth: Moist mucous membranes no mucous membrane lesions Cardiovascular: Distant S1-S2, no S3 gallop, no murmur Lungs: Diminished breath sound bilaterally no crackles rhonchi or wheezes Ext: no gross muscle atrophy, 1-2+ LE pitting edema, no contractures Neuro: Intubated sedated, arousable, follows very simple instructions like wiggling toes and squeezing hands. Psych: Could not assess. - Labs CBC & Chem 7: 05/05/25 05:39 05/05/25 09:29 Labs: Abnormal Lab Results - Last 24 Hours (Table) 05/04/25 05/04/25 05/04/25 Range/Units 17:43 19:47 21:35 WBC (4.50-10.00) 10*3/uL RBC (4.40-5.60) 10*6/uL Hgb (13.0-17.0) g/dL Hct (39.6-50.0) % MCHC (32.0-37.0) g/dL ABG pCO2 (35-45) mmHg ABG HCO3 (21-25) mmol/L ABG Total CO2 (19-24) mmol/L Hemoglobin (13.0-17.5) gm/dL Sodium (137-145) mmol/L Potassium (3.5-5.1) mmol/L Carbon Dioxide (22-30) mmol/L BUN (9-20) mg/dL Creatinine (0.66-1.25) mg/dL Glucose (74-99) mg/dL POC Glucose (mg/dL) 291 H 295 H 286 H (70-110) mg/dL 05/04/25 05/05/25 05/05/25 Range/Units 23:48 05:17 05:39 WBC (4.50-10.00) 10*3/uL RBC (4.40-5.60) 10*6/uL Hgb (13.0-17.0) g/dL Hct (39.6-50.0) % MCHC (32.0-37.0) g/dL ABG pCO2 65 H (35-45) mmHg ABG HCO3 41 H* (21-25) mmol/L ABG Total CO2 43 H (19-24) mmol/L Hemoglobin 9.9 L (13.0-17.5) gm/dL Sodium 148 H (137-145) mmol/L Potassium 5.5 H (3.5-5.1) mmol/L Carbon Dioxide 39 H (22-30) mmol/L BUN 50 H (9-20) mg/dL Creatinine (0.66-1.25) mg/dL Glucose 220 H (74-99) mg/dL POC Glucose (mg/dL) 269 H (70-110) mg/dL 05/05/25 05/05/25 05/05/25 Range/Units 05:39 06:11 09:29 WBC 16.48 H (4.50-10.00) 10*3/uL RBC 3.42 L (4.40-5.60) 10*6/uL Hgb 9.4 L (13.0-17.0) g/dL Hct 32.1 L (39.6-50.0) % MCHC 29.3 L (32.0-37.0) g/dL ABG pCO2 (35-45) mmHg ABG HCO3 (21-25) mmol/L ABG Total CO2 (19-24) mmol/L Hemoglobin (13.0-17.5) gm/dL Sodium (137-145) mmol/L Potassium (3.5-5.1) mmol/L Carbon Dioxide (22-30) mmol/L BUN (9-20) mg/dL Creatinine 0.61 L (0.66-1.25) mg/dL Glucose (74-99) mg/dL POC Glucose (mg/dL) 250 H (70-110) mg/dL 05/05/25 Range/Units 11:42 WBC (4.50-10.00) 10*3/uL RBC (4.40-5.60) 10*6/uL Hgb (13.0-17.0) g/dL Hct (39.6-50.0) % MCHC (32.0-37.0) g/dL ABG pCO2 (35-45) mmHg ABG HCO3 (21-25) mmol/L ABG Total CO2 (19-24) mmol/L Hemoglobin (13.0-17.5) gm/dL Sodium (137-145) mmol/L Potassium (3.5-5.1) mmol/L Carbon Dioxide (22-30) mmol/L BUN (9-20) mg/dL Creatinine (0.66-1.25) mg/dL Glucose (74-99) mg/dL POC Glucose (mg/dL) 238 H (70-110) mg/dL Microbiology - Last 24 Hours (Table) 05/02/25 11:46 Blood Culture - Preliminary Blood 05/03/25 19:45 Gram Stain - Preliminary Sputum 05/02/25 11:46 Nasal Screen MRSA/MSSA - Final Nasal Swab Assessment and Plan Assessment: Impression: Cardiac arrest requiring intubation mechanical ventilation patient had brief resuscitation in the emergency room he received a round of epinephrine and a round of CPR. Acute hypoxic and hypercapnic respiratory failure secondary to cardiac arrest and COPD exacerbation Acute exacerbation of COPD Pneumonia secondary to haemophilus influenza and Proteus as noted on sputum cultures, remains on cefepime Left flank hematoma status post TAVR Advanced COPD and chronic hypoxic respiratory failure Obstructive sleep apnea syndrome on CPAP on outpatient basis Severe aortic stenosis and previous TAVR on 04/15/2025 Peripheral artery disease with history of left femoral artery occlusion Benign essential hypertension Type 2 diabetes Acute transaminitis, improving Hyperkalemia, being addressed accordingly patient to receive Lokelma today. Hyperchloremic hypernatremia, being addressed. Recommendation: Family and patient are agreeable to proceed with tracheostomy and PEG tube placement hand surgery will be notified. Continue ventilatory support Continue bronchodilators Continue antibiotics/cefepime Continue daily sedation holidays. Proceed with tracheostomy and PEG tube placement Continue nutritional support Continue GI and DVT prophylaxis Continue Lantus insulin and sliding scale coverage Could use pressors if necessary at any point for hemodynamic support Overall clinical picture is extremely poor patient remains critically ill Critical care time is 32 minutes Family at bedside, questions were answered. Time with Patient: Greater than 30
--- NOTE | 2025-05-05 13:37 | P.PN ---
Subjective Progress Note Date: 05/05/25 Hospital Course: 64 year old M with PMH of COPD on 2L home O2, DM, HTN, GERD, HLD presents to the ED for SOB. History is obtained from his at bedside. Patient recently underwent TAVR on 04/15. Surgery was complicated with left flank hematoma. He had been doing well since his surgery. Over the past day, he reported increased shortness of breath not relieved with nebulized treatments. This prompted him to come to the ED. In the ED, he was noted to have agonal breathing and subsequently lost his pulse. [facility] was called. He underwent high quality chest compressions, received 1 round of Epinephrine and intubated by Dr. Glass. ROSC was achieved. EKG showed sinus tachycardia with RBBB,CT brain no acute process,CXR small L pleural effusion,CTA chest no PE,CT AP showed stable left flank matoma Patient was admitted to ICU for further workup and management. Initially started on Zosyn IV for treatment on PNA. Procal 0.97. He was on Levophed for a short period of time initially. Sputum Cx grew Proteus and H. influenzae. Zosyn switched to Rocephin on 04/29. He started to spike fevers as high as 102.2F on 05/01, he was re-cultured and antibiotics was switched to Vancomycin and Cefepime. Elevated Troponin of 0.107, 0.14, 0.214 with EKG showing sinus tachycardia and RBBB. Echo showed EF 65-70% with severe pulmonary hypertension. Cardiology recommending no further workup. CT surgery consulted as well given recent TAVR on 04/15, recommending no surgical intervention. He has been difficult to wean off the ventilator. 05/05: Seen and examined at bedside, patient's present during exam. Rounded together with ICU team. Patient is intubated, sedation was stopped around 9:30 AM on 05/04. Patient wakes up, nods yes or no, he agreed to have trach and PEG placed. Continued on broad-spectrum antibiotics with vancomycin and cefepime SOT 05/02. Patient continues to spike fever Tmax 101.2 this afternoon, WBC trending up 16.4, hemoglobin stable 9.4, sodium 148, potassium 5.5, will be provided with 1 dose of Lokelma, creatinine is normal, blood glucose is better controlled. Chest x-ray unchanged from previous studies Vitals Signs Reviewed. General: [Intubated, ill-appearing Derm: [warm], [dry] Head: [atraumatic], [normocephalic], [symmetric] Eyes: [EOMI], [no lid lag], [anicteric sclera] Mouth: [no lip lesion], [mucus membranes moist], ETT in place Cardiovascular: [S1S2 reg], [no murmur] Lungs: [Bilateral breath sounds , rhonchi present bilaterally Abdominal: [soft], [ nontender to palpation], [no guarding], [no appreciable organomegaly] Ext: [no gross muscle atrophy bilateral upper extremity edema, lower extremity edema [no contractures] Neuro: [Pupils are equal and reactive Psych: [Awake, alert, nods yes or no Assessment and Plan: Cardiac arrest status post ROSC, likely due to COPD exacerbation Acute hypoxic hypercapnic respiratory failure due to COPD exacerbation, cardiac arrest requiring mechanical ventilation Haemophilus influenza and Proteus pneumonia plan -Continue vancomycin pharmacy to dose, cefepime 2 g IV 3 times daily SOT 05/02, daily BMP for renal toxicity -MRSA negative, however, patient continues to spike fever, awaiting final blood cultures from 05/02 -Continue Tylenol 650 mg p.o. every 6 hours as needed for fever -ulmicort 1mg INH BID. Performist 20 mcg INH BID. Solumedrol 60 mg IV Q6H. Pulmonary on board. Cardiology and CT surgery recommend no further workup. -Continue aspirin 81 mg daily, simvastatin 80 mg p.o. 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 Nutrition Hyperkalemia: Potassium 5.5, 1 dose of Lokelma ordered by ICU, repeat potassium 4.8. Monitor BMP daily Left flank hematoma: Stable per CT CHET on CPAP Hypertension PAD Severe aortic stenosis status post TAVR 04/15/2025 Normocytic anemia with Thrombocytosis: Likely due to left flank hematoma. Monitor and trend. Hyperbilirubinemia with Transaminitis: Likely due to hypotension. Improving. Trend. DVT ppx: Lovenox Code status full code Anticipated discharge place: TBD Anticipated discharge time: TBD Objective - Vital Signs Vital signs: Vital Signs Temp 99.2 F 05/05/25 12:00 Pulse 98 05/05/25 12:00 Resp 30 H 05/05/25 12:00 BP 133/83 05/05/25 12:00 Pulse Ox 95 05/05/25 12:00 FiO2 45 05/05/25 12:00 Intake & Output 05/04/25 05/05/25 05/05/25 18:59 06:59 18:59 Intake Total 2218.552 2520 910 Output Total 1400 1475 510 Balance 593.920 3744 400 Weight 95.1 kg 98.5 kg Intake: IV 1470 1420 650 Cefepime 2 gm In Sodium 100 100 Chloride 0.9% 100 ml @ 25 mls/hr IVPB Q8H J[facility] Rx#: [id number] Dextrose 5% in Water 1, 1200 1200 500 000 ml @ 100 mls/hr IV . Q10H [facility] Rx#:[id number] Sodium Chloride 0.9% 1, 70 120 50 000 ml @ 10 mls/hr IV . Q24H [facility] Rx#:[id number] cefTRIAXone 2 gm In 200 Sodium Chloride 0.9% 50 ml @ 100 mls/hr IVPB Q24HR [facility] Rx#:[id number] Intake, IV Titration 56.552 Amount propofoL 1,000 mg In 56.552 Empty Bag 1 bag @ 15 MCG/ KG/MIN 8.124 mls/hr IV . [id number] [facility] Rx#:[id number] Oral 50 Tube Feeding 632 700 210 Other 60 400 Output: Urine 1400 1475 510 Other: Voiding Method Indwelling Catheter Indwelling Catheter Indwelling Catheter ABP, PAP, CO, CI - Last Documented Arterial Blood Pressure 147/60 - Labs CBC & Chem 7: 05/05/25 05:39 05/05/25 12:23 Labs: Abnormal Lab Results - Last 24 Hours (Table) 05/04/25 05/04/25 05/04/25 Range/Units 17:43 19:47 21:35 WBC (4.50-10.00) 10*3/uL RBC (4.40-5.60) 10*6/uL Hgb (13.0-17.0) g/dL Hct (39.6-50.0) % MCHC (32.0-37.0) g/dL ABG pCO2 (35-45) mmHg ABG HCO3 (21-25) mmol/L ABG Total CO2 (19-24) mmol/L Hemoglobin (13.0-17.5) gm/dL Sodium (137-145) mmol/L Potassium (3.5-5.1) mmol/L Carbon Dioxide (22-30) mmol/L BUN (9-20) mg/dL Creatinine (0.66-1.25) mg/dL Glucose (74-99) mg/dL POC Glucose (mg/dL) 291 H 295 H 286 H (70-110) mg/dL 05/04/25 05/05/25 05/05/25 Range/Units 23:48 05:17 05:39 WBC (4.50-10.00) 10*3/uL RBC (4.40-5.60) 10*6/uL Hgb (13.0-17.0) g/dL Hct (39.6-50.0) % MCHC (32.0-37.0) g/dL ABG pCO2 65 H (35-45) mmHg ABG HCO3 41 H* (21-25) mmol/L ABG Total CO2 43 H (19-24) mmol/L Hemoglobin 9.9 L (13.0-17.5) gm/dL Sodium 148 H (137-145) mmol/L Potassium 5.5 H (3.5-5.1) mmol/L Carbon Dioxide 39 H (22-30) mmol/L BUN 50 H (9-20) mg/dL Creatinine (0.66-1.25) mg/dL Glucose 220 H (74-99) mg/dL POC Glucose (mg/dL) 269 H (70-110) mg/dL 05/05/25 05/05/25 05/05/25 Range/Units 05:39 06:11 09:29 WBC 16.48 H (4.50-10.00) 10*3/uL RBC 3.42 L (4.40-5.60) 10*6/uL Hgb 9.4 L (13.0-17.0) g/dL Hct 32.1 L (39.6-50.0) % MCHC 29.3 L (32.0-37.0) g/dL ABG pCO2 (35-45) mmHg ABG HCO3 (21-25) mmol/L ABG Total CO2 (19-24) mmol/L Hemoglobin (13.0-17.5) gm/dL Sodium (137-145) mmol/L Potassium (3.5-5.1) mmol/L Carbon Dioxide (22-30) mmol/L BUN (9-20) mg/dL Creatinine 0.61 L (0.66-1.25) mg/dL Glucose (74-99) mg/dL POC Glucose (mg/dL) 250 H (70-110) mg/dL 05/05/25 Range/Units 11:42 WBC (4.50-10.00) 10*3/uL RBC (4.40-5.60) 10*6/uL Hgb (13.0-17.0) g/dL Hct (39.6-50.0) % MCHC (32.0-37.0) g/dL ABG pCO2 (35-45) mmHg ABG HCO3 (21-25) mmol/L ABG Total CO2 (19-24) mmol/L Hemoglobin (13.0-17.5) gm/dL Sodium (137-145) mmol/L Potassium (3.5-5.1) mmol/L Carbon Dioxide (22-30) mmol/L BUN (9-20) mg/dL Creatinine (0.66-1.25) mg/dL Glucose (74-99) mg/dL POC Glucose (mg/dL) 238 H (70-110) mg/dL Microbiology - Last 24 Hours (Table) 05/03/25 19:45 Gram Stain - Preliminary Sputum Sputum Culture - Preliminary 05/02/25 11:46 Blood Culture - Preliminary Blood 05/02/25 11:46 Nasal Screen MRSA/MSSA - Final Nasal Swab
[2025-05-05] MEDS ORDERED: MIDAZOLAM 2 MG/2 ML VIAL ONE (14:05)
[2025-05-05] MEDS ORDERED: PHENYLEPHRINE 10 MG/ML VIAL ONE (14:05)
[2025-05-05] MEDS ORDERED: fentaNYL (PF) 50 MCG/ML 2 ML AMP ONE (14:05)
[2025-05-05] MEDS ORDERED: ROCURONIUM 10 MG/ML (5 ML VIAL) IV ONE (14:05)
[2025-05-05] MEDS: LACTATED RINGERS 1,000 ML IV ONE (14:11)
[2025-05-05] MEDS: LIDOCAINE 1%-EPI 1:100,000 20 ML VIAL SQ ONE ×3 (14:33→14:58)
--- NOTE | 2025-05-05 15:22 | P.OP ---
Date of Procedure: 05/05/25 Procedure(s) Performed: PREOPERATIVE DIAGNOSIS: Respiratory failure, malnutrition POSTOPERATIVE DIAGNOSIS: Same PROCEDURE: Tracheostomy, EGD with PEG tube placement SURGEON: Cindy EBL: Minimal ANESTHESIA: General COMPLICATIONS: None OPERATIVE PROCEDURE: Patient was placed in the operative table in the supine position. A shoulder roll was utilized. The neck was prepped and draped in usual sterile fashion. The skin was infiltrated with local anesthesia. A small cervical incision was created using the scalpel. Dissection through the subcutaneous fat and platysma layer took place using electrocautery. The underlying strap muscles were divided in the midline. The thyroid isthmus was divided using electrocautery as well. A small vessel on either side was ligated using a 3-0 silk tie. Following that no bleeding was seen. The trachea was easily identified at this time. The endotracheal tube was advanced and the balloon was reinflated. The patient was preoxygenated with 100% FiO2. The FiO2 was then brought down to room air. Once the end title oxygen level was less than 35 a vertical tracheostomy was created using the electrocautery. This went through the second and third tracheal ring. The patient was again preoxygenated with 100% FiO2. The brand development manager was utilized. Carefully the endotracheal tube was withdrawn just proximal to our tracheostomy. The 8.5-Irish Shiley nonfenestrated tracheostomy with inner cannula catheter was advanced under direct visualization into the trachea. This was then connected to the ventilator. Positive end tidal CO2 was confirmed. Unfortunately our first tracheostomy that we placed had a hole in the balloon. Patient maintained his sats throughout however. We just simply noticed he was not getting adequate volume. A new tracheostomy catheter was advanced of the same type and no further leak in the balloon was present. The tracheal ties were utilized. The trach was sutured to the skin superiorly using 2 separate 0 silk sutures. The skin was closed using 3-0 Vicryl sutures. A dressing was applied. The patient was kept in the supine position on the operating room table. The Olympus gastroscope was inserted into the oropharynx and passed under direct visualization to the region of the duodenum. No obstruction was seen. The p ylorus was widely patent. The stomach was carefully inspected. The stomach was fully insufflated with air. The abdominal wall was inspected. The light was seen shining through the abdominal wall in the left upper quadrant. This site was chosen for PEG tube placement. The area was prepped in the usual sterile fashion. A small vertical incision was made using the scalpel. The Seldinger needle was advanced into the lumen of the stomach the wire was advanced. The wire was grasped with an endoscopic snare. The wire was pulled through the oropharynx. The catheter was then threaded over the guidewire and the guidewire and catheter were pulled anteriorly until the hub of the PEG tube catheter was seated against the anterior wall the stomach. The circular bolster was applied and tightened down. The endoscope was then readvanced into the stomach. There was no evidence of any bleeding and there was appropriate tightness on the bolster. The catheter was cut appropriately. The dual port feeding adapter was applied. DISPOSITION: Stable to ICU
[2025-05-05 17:29] LABS: Glucose,Whole Blood 130 mg/dL (70-110)
[2025-05-05 19:48] LABS: Glucose,Whole Blood 123 mg/dL (70-110)
[2025-05-05 23:11] LABS: Glucose,Whole Blood 125 mg/dL (70-110)
[2025-05-06 05:22] LABS: ABG PCO2 55 mmHg (35-45); ABG PH 7.46 (7.35-7.45); ABG PO2 68 mmHg (83-108); ABG TCO2 41 mmol/L (19-24); Allen Test Performed? Yes
[2025-05-06 05:24] LABS: ABG HCO3 40 mmol/L (21-25)
[2025-05-06 05:33] LABS: Glucose,Whole Blood 275 mg/dL (70-110)
[2025-05-06 06:15] LABS: HCT 31.3 % (39.6-50.0); HGB 9.5 g/dL (13.0-17.0); MCH 28.4 pg (27.0-32.0); MCHC 30.4 g/dL (32.0-37.0); MCV 93.7 fL (80.0-97.0); Platelet Count 214 10*3/uL (140-440); RBC 3.34 10*6/uL (4.40-5.60); RDW 15.0 % (11.5-14.5); WBC 22.34 10*3/uL (4.50-10.00)
[2025-05-06 06:29] LABS: African American GFR (CKD) >90 (>60 ml/min/1.73 sqM); Anion Gap 3 mmol/L; Blood Urea Nitrogen 41 mg/dL (9-20); Calcium 8.6 mg/dL (8.4-10.2); Carbon Dioxide 39 mmol/L (22-30); Chloride 105 mmol/L (98-107); Glucose 261 mg/dL (74-99); Non-African American GFR(CKD) >90 (>60 ml/min/1.73 sqM); Potassium 4.8 mmol/L (3.5-5.1); Sodium 147 mmol/L (137-145)
--- NOTE | 2025-05-06 07:08 | XR ---
EXAMINATION TYPE: XR chest 1V portable DATE OF EXAM: 05/06/2025 5:36 AM COMPARISON: Multiple radiographs, with the most recent on 05/05/2025 TECHNIQUE: XR chest 1V portable Portable AP radiograph of the chest. CLINICAL INDICATION:Male, 64 years old with history of Mechanical ventilation; FINDINGS: Lungs/Pleura: There is no evidence of pleural effusion, focal consolidation, or pneumothorax. Pulmonary vascularity: Unremarkable. Heart/mediastinum: Cardiomediastinal silhouette is unremarkable. Post aortic valve repair changes. Musculoskeletal: No acute osseous pathology. Other findings: None Lines/Tubes: Tracheostomy cannula overlying the trachea. Interval removal of NG tube with PEG tube overlying the left upper quadrant. Stable left sided approach central venous catheter with distal tip in the high SVC. IMPRESSION: Interval placement of tracheostomy cannula overlying the trachea with stable position of left sided c entral venous catheter. Removal of NG tube with PEG tube now demonstrated in the left upper quadrant. [facility], , 05/06/2025 7:05 AM
[2025-05-06 11:52] LABS: Glucose,Whole Blood 264 mg/dL (70-110)
--- NOTE | 2025-05-06 13:00 | CA ---
Transthoracic Echo Report Name: Aldo Mcguire Age: 64 Gender: M : 1960 Exam Date: 05/06/2025 09:50 Exam Location: [place] [facility] Ht (in): 72 Wt (lb): 217 Ordering Physician: Mera Anne Attending/Referring Phys: [id number], Omid Electronic Service Technician Crissy Long, FER Procedure CPT: Indications: 30 days post TAVR Cardiac Hx: Technical Quality: Fair, Pt Supine and Vented Contrast 1: Total Dose (mL): Contrast 2: Total Dose (mL): MEASUREMENTS (Male / Female) Normal Values 2D ECHO LV Diastolic Diameter PLAX 4.2 cm 4.2 - 5.9 / 3.9 - 5.3 cm LV Systolic Diameter PLAX 2.3 cm IVS Diastolic Thickness 1.2 cm 0.6 - 1.0 / 0.6 - 0.9 cm LVPW Diastolic Thickness 1.1 cm 0.6 - 1.0 / 0.6 - 0.9 cm LV Relative Wall Thickness 0.6 RV Internal Dim ED PLAX 2.9 cm LVOT Diameter 1.8 cm LA Systolic Diameter LX 3.0 cm 3.0 - 4.0 / 2.7 - 3.8 cm LV Diastolic Volume MOD 4C 59.4 cm??? LV Systolic Volume MOD 4C 23.7 cm??? LV Ejection Fraction MOD 4C 60.1 % LV Cardiac Index MOD 4C 1407.8 cm???/min???m??? LV Diastolic Length 4C 7.3 cm LV Systolic Length 4C 6.0 cm M-MODE Aortic Root Diameter MM 2.6 cm LA Systolic Diameter MM 3.9 cm LA Ao Ratio MM 1.5 DOPPLER AV Peak Velocity 279.2 cm/s AV Peak Gradient 31.2 mmHg AV Mean Velocity 223.5 cm/s AV Mean Gradient 21.4 mmHg AV Velocity Time Integral 47.4 cm AI Peak Velocity 320.0 cm/s AI Peak Gradient 41.0 mmHg AI Pressure Half Time 692.8 ms LVOT Peak Velocity 131.3 cm/s LVOT Peak Gradient 6.9 mmHg LVOT Velocity Time Integral 29.9 cm LVOT Stroke Volume 74.9 cm??? LVOT Stroke Volume Index 34.0 ml/m??? LVOT Cardiac Index 2953.6 cm???/min???m??? AV Area Cont Eq vti 1.6 cm??? AV Area Cont Eq pk 1.2 cm??? Mitral E Point Velocity 61.8 cm/s Mitral A Point Velocity 123.5 cm/s Mitral E to A Ratio 0.5 MV Deceleration Time 201.6 ms MV E' Velocity 5.3 cm/s Mitral E to MV E' Ratio 11.6 TR Peak Velocity 225.2 cm/s TR Peak Gradient 20.3 mmHg Right Atrial Pressure 20.0 mmHg Pulmonary Artery Systolic Pressu 40.3 mmHg Right Ventricular Systolic Press 40.3 mmHg FINDINGS Left Ventricle Left ventricular ejection fraction is estimated at 60-65 %. Mildly increased septal wall thickness. No obvious regional wall motion abnormalities. Right Ventricle Moderate right ventricular dilatation. Mild pulmonary hypertension. Right Atrium Normal right atrial size. Left Atrium Normal left atrial size. Mitral Valve Structurally normal mitral valve. Trace mitral regurgitation. No mitral stenosis. Aortic Valve Bioprosthetic aortic valve with a peak velocity of 2.80 m/s, peak gradient 31mmHg, mean gradient 21mmHg. No central aortic regurgitation. Mild paravalvular aortic regurgitation. Tricuspid Valve Structurally normal tricuspid valve. Trace to mild tricuspid regurgitation. No tricuspid stenosis. Pulmonic Valve Structurally normal pulmonic valve. Trace pulmonic regurgitation. No pulmonic stenosis. Pericardium No pericardial or pleural effusion. Aorta Normal size aortic root and proximal ascending aorta. CONCLUSIONS Normal LV function Bioprosthetic valve in aortic position with mild aortic regurgitation and mild aortic stenosis with a peak gradient of 31 mm in the mean gradient of 21 mm across the valve Previewed by: Dr. Sandip Demarco MD (Electronically Signed) Final Date: 06 May 2025 13:00
--- NOTE | 2025-05-06 14:02 | P.PN ---
Subjective Progress Note Date: 05/06/25 Principal diagnosis: Cardiac arrest A 64-year-old male patient presented to the emergency department with acute respiratory failure. The patient was unresponsive and in respiratory arrest. CPR was immediately initiated. The patient was given a round of epinephrine and CPR and the patient was intubated in the emergency department. He had return of spontaneous circulation. I reviewed the initial EKG post resuscitation and the patient was in normal sinus rhythm with a right bundle branch block pattern. The initial rhythm at the time of his cardiac arrest is not known. Nevertheless, I suspect that the patient had an acute hypoxic/hypercapnic respiratory failure as the patient postintubation was actively bronchospastic and wheezy. I saw the patient immediately post intubation and the patient had very limited air entry bilaterally, active bronchospastic and wheezy and while being on the mechanical ventilator, the patient's peak airway pressure was 50 and the blood gas showed a pH of 7.0 with a PCO2 more than 98 and a pO2 of 232 and this was done at that appointment for 50, rate of 20, FiO2 100% with a PEEP of 5. The chest x-ray was reviewed and it showed a small left-sided pleural effusion. The patient underwent a CT of the chest and a CAT scan of the ab domen. CT of the chest showed no evidence of any pulmonary embolism and the patient had no filling defects. No mediastinal lymphadenopathy or any other acute cardiopulmonary abnormalities. Lungs were essentially clear. CAT scan of the abdomen and pelvis showed left flank hematoma present since 04/22/2025 and this occurred following a TAVR procedure. The patient had a low-density lesion along the left lateral hemipelvis with some mild stranding measuring 7.7 x 4.5 x 13.4 cm in size, likely presenting an intramuscular seroma without any free fluid in the pelvis. Findings were essentially similar compared to the earlier CAT scan on 04/22/2025. No other abnormalities noted. CAT scan of the brain showed no acute intracranial abnormalities. Blood work showed a white cell count of 18.4 with a hemoglobin 9.5 and a platelet count of 516. Normal coagulation profile. K levels of 5.6, bicarb is at 33 with a BUN of 21 and creatinine 0.8. Lactic acid level was at 3.1. Troponins were 0.1 and 0.1 respectively x 2 with a proBNP level of 1000. BUN is 21 with a creatinine of 0.8 and UA was also noted with 4 WBCs. Based on his ongoing hypoxic respiratory failure, high airway pressures and severe bronchospasm wheezing, the patient was started on DuoNeb nebulizer treatments [id number], IV Solu-Medrol and patient was kept on propofol and the patient was also started on paralytics with Nimbex. IV fluids are currently running at the rate of 100 cc of normal saline and the patient is also on low- dose norepinephrine for hemodynamic support. 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 04/28/2025, the patient is being seen for a follow-up. The patient remains intubated on a mechanical ventilator. This morning, the patient sedated with propofol running at 50 mcg/kg/min and Nimbex at 1 mcg/kg/min. Is adequately sedated and paralyzed. He remains on mechanical ventilator, assist-control mode at rate of 30, tidal volume of 400, FiO2 50% with a PEEP of 5. Peak airway pressure is 33. The blood gas showed a pH of 7.24 with a PCO2 of 76 and PO2 of 82. Chest x-ray shows no acute abnormalities. Orotracheal tube was pushed in and it seems to be in satisfactory position. He has some interstitial opacities bilaterally along with background COPD. NG tube is not clearly seen. The patient is on normal saline at rate of 100 cc an hour. Urine output is in order of 40 cc an hour. Fluid balance is +712 cc over the past 24 hours. He is on low-dose norepinephrine running at 0.01 mcg/kg/min. The patient has been COPD and the patient is oxygen dependent and steroid-dependent outpatient basis the patient has been taking 50 mg of prednisone on an outpatient basis. WBC count is at 19 with a hemoglobin 10.2 and a platelet count of 410. Sodium is at 136, potassium is at 5.2, bicarb is at 34, BUN is 40 with a creatinine of 1.1. LFTs are abnormal with an AST of 1110 [place] [address] and a normal alkaline phosphatase. Blood sugar slightly elevated due to steroid use and the patient is on insulin sliding scale coverage. The patient is also on empiric antibiotic coverage with IV Zosyn. The left flank and abdominal hematoma remains unchanged. On 04/29/2025, the patient remains intubated on the mechanical ventilator. The patient is on propofol running at 50 mcg/kg/min and the patient is on Nimbex running at 2 mcg/kg/min. The patient is adequately sedated and paralyzed. This morning, he is on assist-control mode at rate of 30, tidal volume of 400, FiO2 50% with a PEEP of 5. The blood gas showed a pH of 7.28 with a PCO2 of 75 and PO2 of 96. The peak airway pressure is 34. Chest x-ray shows no acute abnormalities. Her procalcitonin level was at 0.97. The patient remains on vi heena high-protein at rate of 40 cc an hour. Fluid balance is +1.1 L over the past 24 hours and the patient is on normal Saint rate of 50 cc an hour. Echocardiogram showed ejection fraction of 65%, dilatation of the RV and the pulmonary artery pressure of around 55. The white cell count of 16.6 with a hemoglobin 9.8 and a platelet count of 395. Sodium is at 135, potassium is at 5.1, bicarbonate 37, BUN 60 with a creatinine of 1.08. AST is 412. ALT is at 1091. Total protein is at 5.7 with an albumin of 3.3. Remains on DuoNeb neb treatment [id number]. Remains on a combination of Perforomist and Pulmicort neb treatments twice a day and IV Solu-Medrol 60 mg every 6 hours. Remains on empiric antibiotic coverage with IV Rocephin. Remains on IV Solu- Medrol. Patient is off pressors for now. CAT scan of the abdomen and pelvis that was done at time of admission showed no significant intra-abdominal abnormalities. Left flank hematoma was essentially unchanged. The patient continues to have a stable hemoglobin and there is no significant drop in hemoglobin over the past 24 hours. He is post TAVR. He has an underlying rhythm that is sinus and the patient has a bundle branch block pattern. On 04/30/2025, the patient is being seen for a follow-up. Remains intubated on mechanical ventilator. The patient remains on propofol which is running at 50 mcg/kg/min and the patient is currently off paralytics. The morning blood gases showed a pH of 7.32 with a PCO2 of 80 and PO2 of 77. This was done on assist- control mode with a rate of 70, tidal volume of 400, FiO2 50% and PEEP of 5. Chest x-ray shows no acute pulmonary infiltrates. A drop in the respiratory rate was down to 20 and FiO2 was dropped down to 40%. Subsequent blood gas showed a pH of 7.23 with a PCO2 of 94 and PO2 of 101. The patient was riding the mechanical ventilator and the patient is deeply sedated. Will gradually wean down his propofol. Meanwhile, morning blood draw showed a elevated potassi um level and the patient had hyperkalemia. Potassium was at 6. The patient was given calcium gluconate, 10 units of insulin and Lokelma 10 mg. Subsequent potassium level improved. The the white cell count is at 19.3 with a hemoglobin 9.4 and a platelet count of 338. The sodium is at 139, most recent potassium level is down to 5.7, the serum bicarb is at 40, chloride is 96. The peak airway pressure is around 35. The patient is on vital high-protein at rate of 55 cc an hour. The patient is also on Lantus insulin for blood sugar control and the patient receiving Lantus 25 units and NovoLog 8 units 3 times daily and a sliding scale coverage. Remains on bronchodilators. Remains on steroids. Remains on Perforomist and Pulmicort nebulized treatments. Remains on empiric antibiotic coverage with IV Rocephin. Sputum sample is positive for Proteus mirabilis and haemophilus. On today's evaluation of 05/01/2025, the patient is being seen for a follow-up. The patient is off paralytics and the patient is currently on propofol running at 35 mcg/kg/min. The patient currently is on a mechanical ventilator assist- control mode at rate of 30, tidal volume of 400, FiO2 of 50% with a PEEP of 5. Patient has a pH of 7.33 with a PCO2 of 79 and PO2 of 80. Sputum positive for Proteus and haemophilus and the patient remains on IV Rocephin. Chest x-ray shows no evidence of pneumonia. Peak airway pressure is around 34. IV fluids are KVO. Fluid balance is -1.1 L. Cardiac rhythm is sinus. No pressors. The patient remains on vital protein at rate of 55 cc an hour. Remains on broncho dilators. Remains on IV Solu-Medrol. Remains on Lantus insulin 25 units along with NovoLog sliding scale coverage. Last flank and abdominal hematoma is unchanged extending to the scrotum. No significant swelling. No drop in the hemoglobin. The blood work from today shows a WBC count of 19.7, hemoglobin 9.2 and platelet count of 307. Serum bicarbonate is 43, sodium is 145, potassium is at 5.3, chloride is 99. 05/02/2025, the patient remains intubated on mechanical ventilator. The patient remains on propofol running at 25 mcg/kg/min. Chest x-ray shows pulm interstitial infiltrates bilaterally. The patient's sputum sample was positive for Proteus and haemophilus influenza. The patient was treated with IV Rocephin. Nevertheless, this morning, the patient noted to be febrile and vani led the fever workup will be done. Will repeat a sputum analysis. Will check a blood cultures. Antibiotics will be modified and the patient will be taken off Rocephin and started on IV cefepime. Patient will be also started on vancomycin pending further cultures. He is on assist-control mode of mechanical ventilation at rate of 30, tidal volume 400, FiO2 50% with a PEEP of 5. pH is at 7.35 with a PCO2 of 78 and PO2 of 86. Peak airway pressure is around 30. Fluid balance is -1.1 L over the past 24 hours. The patient remains on vital high-protein at rate of 71 cc an hour. Lantus for blood sugar control 30 units and the cardiac rhythm is sinus. IV fluids are currently at KVO. Rest of the blood work shows a white cell count of 16, hemoglobin 9.3 and a platelet count of 286. Sodium levels at 151, potassium level is at 5, bicarb is at 45, BUN 50 and creatinine is at 1.03. Blood sugars are 244. LFTs are improving with a drop in the AST and ALT level. COVID-19 testing has been negative. Procalcitonin level is at 0.97. On 05/03/2025, the patient is being seen for a follow-up. The patient remains intubated on a mechanical ventilator. This will be a extremely difficult wean as the patient advanced COPD. The patient remains on propofol at the rate of 35 mcg/kg/min. The sedation holiday was given failed as the patient became tachypneic, hypoxic, tachycardic and he went into cardiac arrhythmias in the form of SVT. Subsequently, the patient was placed back on sedation the patient remains on propofol. The patient remains on assist-control mode at rate of 30, tidal volume of 400, FiO2 50% with a PEEP of 5. Blood gas from today shows a pH of 7.38 with a PCO2 of 70 and PO2 of 60. Chest x-ray findings are essentially unchanged. The patient remains on IV antibiotics as the patient has grown haemophilus and Proteus in the sputum and the patient currently is on IV cefepime. He is also on vancomycin as an empiric antibiotic coverage. Awaiting follow-up sputum samples. Fluid balance is -930 cc over the past 24 hours. The patient is on vital high-protein at rate of 71 cc an hour. Lantus insulin at 30 units/day along with NovoLog 10 units with meal and sliding scale coverage. No pressors for now. Continues to have short runs of a flutter/SVT. Current c ardiac rhythm is sinus. Sodium levels at 155, potassium levels of 4.9, BUN 51 with a creatinine of 0.8. WBC count of 13.2, hemoglobin 9.7 and platelet count is at 275. IV fluids are currently at KVO. Seen today on 05/04/2025, patient remains in the ICU intubated and mechanically ventilated, on assist-control rate of 30 tidal volume 450 FiO2 50% and PEEP of 5 ABG showed a pO2 of 109 pCO2 68 pH of 7.38. Patient remains on D5W at 100 cc/h propofol 35 mcg/kg/min vital HP at 71 cc/h. Patient is also to receive free water 200 mL 4 times daily via orogastric tube. Patient apparently failed wean ing x 2 and he is not ready to be weaned mostly because of his mental status. Today I discussed his condition with the discussed the option of tracheostomy and PEG tube placement discussed the option of comfort care measures. The seems to be very inclined to proceed with tracheostomy and PEG tube placement and continue to try to wean after tracheostomy and PEG tube placement. Patient may actually require even placement after tracheostomy and PEG tube placement depending on his overall clinical status at the time. For now patient will be given trials of weaning from propofol as tolerated, and would like to assess mental status off sedation. And that seems to be difficult to do. Dr. Mchugh already saw the patient for possible tracheostomy and PEG tube placement, and will proceed to do so. Chest x-ray today showed small scattered reticular opacities unchanged, endotracheal tube seems to be high above the yakelin that needs to be advanced patient has a nasogastric tube in place. And he has a left internal jugular central line. Patient was seen today on 05/05/2025, remains intubated and mechanically ventilated. He is on assist-control rate of 30 tidal volume 450 FiO2 45%, PEEP of 5. ABG showed a pO2 of 84 pCO2 65 pH of 7.41, patient is arousable, follows simple instructions but he is profoundly weak. Family is at bedside, and we discussed the option of tracheostomy versus comfort care, would like to proceed with tracheostomy and PEG tube placement, and we will let general surgery aware of this. His WBC count is 16.4 hemoglobin 9.4 electrolytes are normal potassium is a bit high at 5.5, BUN is 50 creatinine 0.67. His sputum was positive for Proteus and for haemophilus. Patient remains on cefepime. Chest x-ray showed small scattered reticular opacities, basically unchanged. Patient was seen today on 05/06/2025, he underwent uneventful tracheostomy and PEG tube placement yesterday. Remains intubated mechanically ventilated, he is on assist-control rate of 30 tidal volume 450 FiO2 45% and PEEP of 5 ABG showed a pO2 of 68 pCO2 55 pH of 7.46. Patient is still on vital HP at 20 cc/h D5W at 100 cc/h, WBC count is 22.3 hemoglobin is 9.5 electrolytes showed sodium down to 147 bicarb is 39 BUN 41 creatinine 0.63. Chest x-ray showed relatively stable findings, no evidence of effusion no evidence of consolidation, no infiltrates. Tracheostomy in proper position and lines are in proper position. Objective - Vital Signs Vital signs: Vital Signs Temp 99.3 F 05/06/25 09:00 Pulse 90 05/06/25 12:00 Resp 16 05/06/25 12:00 BP 126/68 05/06/25 12:00 Pulse Ox 96 05/06/25 12:00 FiO2 45 05/06/25 12:00 Intake & Output 05/05/25 05/06/25 05/06/25 18:59 06:59 18:59 Intake Total 2260 1320 110 Output Total 910 900 500 Balance 1350 420 -390 Weight 99 kg Intake: IV 1900 1320 110 Cefepime 2 gm In Sodium 100 Chloride 0.9% 100 ml @ 25 mls/hr IVPB Q8H JÚNIOR Rx#: [id number] Dextrose 5% in Water 1, 1000 1200 100 000 ml @ 100 mls/hr IV . Q10H JÚNIOR Rx#:[id number] Sodium Chloride 0.9% 1, 100 120 10 000 ml @ 10 mls/hr IV . Q24H JÚNIOR Rx#:[id number] Intake, IV Titration 100 Amount Cefepime 2 gm In Sodium 100 Chloride 0.9% 100 ml @ 25 mls/hr IVPB Q8H JÚNIOR Rx#: [id number] Oral 50 Tube Feeding 210 0 0 Output: Urine 910 900 500 Other: Voiding Method Indwelling Catheter Indwelling Catheter Indwelling Catheter ABP, PAP, CO, CI - Last Documented Arterial Blood Pressure 147/60 - Exam General: Reveals 64-year-old white male intubated mechanically ventilated, via tracheostomy Derm: warm, dry, no rashes. Head: atraumatic, normocephalic, symmetric tracheostomy is intact Eyes: PERRLA, EOMI, nonicteric. Mouth: Moist mucous membranes no mucous membrane lesions Abdomen: Soft nontender no megaly no rebound, PEG tube is noted Cardiovascular: Distant S1-S2, no S3 gallop, no murmur Lungs: Diminished breath sound bilaterally no crackles rhonchi or wheezes Ext: no gross muscle atrophy, 1-2+ LE pitting edema, no contractures, Neuro: Arousable, off propofol, patient is following simple instructions, no focal deficit Psych: Normal mood and affect normal mental status examination - Labs CBC & Chem 7: 05/06/25 05:27 05/06/25 05:27 Labs: Abnormal Lab Results - Last 24 Hours (Table) 05/05/25 05/05/25 05/05/25 Range/Units 17:27 19:47 23:09 WBC (4.50-10.00) 10*3/uL RBC (4.40-5.60) 10*6/uL Hgb (13.0-17.0) g/dL Hct (39.6-50.0) % MCHC (32.0-37.0) g/dL ABG pH (7.35-7.45) ABG pCO2 (35-45) mmHg ABG pO2 (83-108) mmHg ABG HCO3 (21-25) mmol/L ABG Total CO2 (19-24) mmol/L Hemoglobin (13.0-17.5) gm/dL Sodium (137-145) mmol/L Carbon Dioxide (22-30) mmol/L BUN (9-20) mg/dL Creatinine (0.66-1.25) mg/dL Glucose (74-99) mg/dL POC Glucose (mg/dL) 130 H 123 H 125 H (70-110) mg/dL 05/06/25 05/06/25 05/06/25 Range/Units 05:20 05:27 05:27 WBC 22.34 H (4.50-10.00) 10*3/uL RBC 3.34 L (4.40-5.60) 10*6/uL Hgb 9.5 L (13.0-17.0) g/dL Hct 31.3 L (39.6-50.0) % MCHC 30.4 L (32.0-37.0) g/dL ABG pH 7.46 H (7.35-7.45) ABG pCO2 55 H (35-45) mmHg ABG pO2 68 L (83-108) mmHg ABG HCO3 40 H* (21-25) mmol/L ABG Total CO2 41 H (19-24) mmol/L Hemoglobin 9.6 L (13.0-17.5) gm/dL Sodium 147 H (137-145) mmol/L Carbon Dioxide 39 H (22-30) mmol/L BUN 41 H (9-20) mg/dL Creatinine 0.63 L (0.66-1.25) mg/dL Glucose 261 H (74-99) mg/dL POC Glucose (mg/dL) (70-110) mg/dL 05/06/25 05/06/25 Range/Units 05:31 11:50 WBC (4.50-10.00) 10*3/uL RBC (4.40-5.60) 10*6/uL Hgb (13.0-17.0) g/dL Hct (39.6-50.0) % MCHC (32.0-37.0) g/dL ABG pH (7.35-7.45) ABG pCO2 (35-45) mmHg ABG pO2 (83-108) mmHg ABG HCO3 (21-25) mmol/L ABG Total CO2 (19-24) mmol/L Hemoglobin (13.0-17.5) gm/dL Sodium (137-145) mmol/L Carbon Dioxide (22-30) mmol/L BUN (9-20) mg/dL Creatinine (0.66-1.25) mg/dL Glucose (74-99) mg/dL POC Glucose (mg/dL) 275 H 264 H (70-110) mg/dL Microbiology - Last 24 Hours (Table) 05/03/25 19:45 Gram Stain - Final Sputum Sputum Culture - Final 05/02/25 11:46 Blood Culture - Preliminary Blood Assessment and Plan Assessment: Impression: Cardiac arrest requiring intubation mechanical ventilation patient had brief resuscitation in the emergency room he received a round of epinephrine and a round of CPR. Acute hypoxic and hypercapnic respiratory failure secondary to cardiac arrest and COPD exacerbation Acute exacerbation of COPD Pneumonia secondary to haemophilus influenza and Proteus as noted on sputum cultures, remains on cefepime Left flank hematoma status post TAVR Advanced COPD and chronic hypoxic respiratory failure Obstructive sleep apnea syndrome on CPAP on outpatient basis Severe aortic stenosis and previous TAVR on 04/15/2025 Peripheral artery disease with history of left femoral artery occlusion Benign essential hypertension Type 2 diabetes Acute transaminitis, improving Hyperkalemia, being addressed accordingly patient to receive Lokelma today. Hyperchloremic hypernatremia, being addressed. Improving Status post tracheostomy and PEG tube placement on 05/05/2025 Recommendation: Continue ventilatory support however the patient will be given a trial of pressure support of 12 and CPAP today Continue bronchodilators Continue antibiotics/cefepime Off sedation when given a weaning trial Continue nutritional support, via PEG tube/enteral feeding Continue GI and DVT prophylaxis Continue Lantus insulin and sliding scale coverage Remains critically ill Critical care time is 33minutes Time with Patient: Greater than 30
--- NOTE | 2025-05-06 14:54 | P.PN ---
Subjective Progress Note Date: 05/06/25 Hospital Course: 64 year old M with PMH of COPD on 2L home O2, DM, HTN, GERD, HLD presents to the ED for SOB. History is obtained from his at bedside. Patient recently underwent TAVR on 04/15. Surgery was complicated with left flank hematoma. He had been doing well since his surgery. Over the past day, he reported increased shortness of breath not relieved with nebulized treatments. This prompted him to come to the ED. In the ED, he was noted to have agonal breathing and subsequently lost his pulse. [facility] was called. He underwent high quality chest compressions, received 1 round of Epinephrine and intubated by Dr. Glass. ROSC was achieved. EKG showed sinus tachycardia with RBBB,CT brain no acute process,CXR small L pleural effusion,CTA chest no PE,CT AP showed stable left flank matoma Patient was admitted to ICU for further workup and management. Initially started on Zosyn IV for treatment on PNA. Procal 0.97. He was on Levophed for a short period of time initially. Sputum Cx grew Proteus and H. influenzae. Zosyn switched to Rocephin on 04/29. He started to spike fevers as high as 102.2F on 05/01, he was re-cultured and antibiotics was switched to Vancomycin and Cefepime. Elevated Troponin of 0.107, 0.14, 0.214 with EKG showing sinus tachycardia and RBBB. Echo showed EF 65-70% with severe pulmonary hypertension. Cardiology recommending no further workup. CT surgery consulted as well given recent TAVR on 04/15, recommending no surgical intervention. He has been difficult to wean off the ventilator. 05/06: Seen and examined at bedside, patient underwent tracheostomy and PEG tube placement on 05/05, he is not on sedation, he is alert, tries to talk, per RN, peace magallon cath leak was noted.. Continued on broad-spectrum antibiotics with cefepime SOT 05/02. Patient is afebrile since 05/05 4 PM, blood pressure remained stable WBC trending up to 22.3, hemoglobin stable 9.5, ABG with pH of 7.46, BES325 and PO268, sodium improving to 147, normal sodium today 4.8, creatinine 0.63, chest x-ray with no significant changes again. Vitals Signs Reviewed. General: [Intubated, ill-appearing Derm: [warm], [dry] Head: [atraumatic], [normocephalic], [symmetric] tracheostomy in place Eyes: [EOMI], [no lid lag], [anicteric sclera] Mouth: [no lip lesion], [mucus membranes moist], ETT in place Cardiovascular: [S1S2 reg], [no murmur] Lungs: [Bilateral breath sounds , rhonchi present bilaterally Abdominal: [soft], [ nontender to palpation], [no guarding], [no appreciable organomegaly], PEG tube in place Ext: [no gross muscle atrophy bilateral upper extremity edema, lower extremity edema [no contractures] Neuro: [Pupils are equal and reactive Psych: [Awake, alert, nods yes or no Assessment and Plan: Cardiac arrest status post ROSC, likely due to COPD exacerbation Acute hypoxic hypercapnic respiratory failure due to COPD exacerbation, cardiac arrest requiring mechanical ventilation s/p tracheostomy placement 05/05/2025 Haemophilus influenza and Proteus pneumonia plan -Continue , cefepime 2 g IV 3 times daily SOT 05/02, daily BMP and CBC -MRSA negative, however, patient continues to spike fever, awaiting final blood cultures from 05/02 -Continue Tylenol 650 mg p.o. every 6 hours as needed for fever -ulmicort 1mg INH BID. Performist 20 mcg INH BID. Solumedrol 60 mg IV Q6H. Pulmonary on board. Cardiology and CT surgery recommend no further workup. -Continue aspirin 81 mg daily, simvastatin 80 mg p.o. 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 Nutrition Hyperkalemia: Potassium 5.5, 1 dose of Lokelma ordered by ICU, repeat potassium 4.8. Monitor BMP daily Left flank hematoma: Stable per CT CHET on CPAP Hypertension PAD Severe aortic stenosis status post TAVR 04/15/2025 Normocytic anemia with Thrombocytosis: Likely due to left flank hematoma. Monitor and trend. Hyperbilirubinemia with Transaminitis: Likely due to hypotension. Improving. Trend. DVT ppx: Lovenox Code status full code Anticipated discharge place: TBD Anticipated discharge time: TBD Objective - Vital Signs Vital signs: Vital Signs Temp 99.3 F 05/06/25 09:00 Pulse 90 05/06/25 12:00 Resp 16 05/06/25 12:00 BP 126/68 05/06/25 12:00 Pulse Ox 96 05/06/25 12:00 FiO2 45 05/06/25 12:00 Intake & Output 05/05/25 05/06/25 05/06/25 18:59 06:59 18:59 Intake Total 2260 1320 110 Output Total 910 900 500 Balance 1350 420 -390 Weight 99 kg Intake: IV 1900 1320 110 Cefepime 2 gm In Sodium 100 Chloride 0.9% 100 ml @ 25 mls/hr IVPB Q8H [facility] Rx#: [id number] Dextrose 5% in Water 1, 1000 1200 100 000 ml @ 100 mls/hr IV . Q10H [facility] Rx#:[id number] Sodium Chloride 0.9% 1, 100 120 10 000 ml @ 10 mls/hr IV . Q24H [facility] Rx#:[id number] Intake, IV Titration 100 Amount Cefepime 2 gm In Sodium 100 Chloride 0.9% 100 ml @ 25 mls/hr IVPB Q8H [facility] Rx#: [id number] Oral 50 Tube Feeding 210 0 0 Output: Urine 910 900 500 Other: Voiding Method Indwelling Catheter Indwelling Catheter Indwelling Catheter ABP, PAP, CO, CI - Last Documented Arterial Blood Pressure 147/60 - Labs CBC & Chem 7: 05/06/25 05:27 05/06/25 05:27 Labs: Abnormal Lab Results - Last 24 Hours (Table) 05/05/25 05/05/25 05/05/25 Range/Units 17:27 19:47 23:09 WBC (4.50-10.00) 10*3/uL RBC (4.40-5.60) 10*6/uL Hgb (13.0-17.0) g/dL Hct (39.6-50.0) % MCHC (32.0-37.0) g/dL ABG pH (7.35-7.45) ABG pCO2 (35-45) mmHg ABG pO2 (83-108) mmHg ABG HCO3 (21-25) mmol/L ABG Total CO2 (19-24) mmol/L Hemoglobin (13.0-17.5) gm/dL Sodium (137-145) mmol/L Carbon Dioxide (22-30) mmol/L BUN (9-20) mg/dL Creatinine (0.66-1.25) mg/dL Glucose (74-99) mg/dL POC Glucose (mg/dL) 130 H 123 H 125 H (70-110) mg/dL 05/06/25 05/06/25 05/06/25 Range/Units 05:20 05:27 05:27 WBC 22.34 H (4.50-10.00) 10*3/uL RBC 3.34 L (4.40-5.60) 10*6/uL Hgb 9.5 L (13.0-17.0) g/dL Hct 31.3 L (39.6-50.0) % MCHC 30.4 L (32.0-37.0) g/dL ABG pH 7.46 H (7.35-7.45) ABG pCO2 55 H (35-45) mmHg ABG pO2 68 L (83-108) mmHg ABG HCO3 40 H* (21-25) mmol/L ABG Total CO2 41 H (19-24) mmol/L Hemoglobin 9.6 L (13.0-17.5) gm/dL Sodium 147 H (137-145) mmol/L Carbon Dioxide 39 H (22-30) mmol/L BUN 41 H (9-20) mg/dL Creatinine 0.63 L (0.66-1.25) mg/dL Glucose 261 H (74-99) mg/dL POC Glucose (mg/dL) (70-110) mg/dL 05/06/25 05/06/25 Range/Units 05:31 11:50 WBC (4.50-10.00) 10*3/uL RBC (4.40-5.60) 10*6/uL Hgb (13.0-17.0) g/dL Hct (39.6-50.0) % MCHC (32.0-37.0) g/dL ABG pH (7.35-7.45) ABG pCO2 (35-45) mmHg ABG pO2 (83-108) mmHg ABG HCO3 (21-25) mmol/L ABG Total CO2 (19-24) mmol/L Hemoglobin (13.0-17.5) gm/dL Sodium (137-145) mmol/L Carbon Dioxide (22-30) mmol/L BUN (9-20) mg/dL Creatinine (0.66-1.25) mg/dL Glucose (74-99) mg/dL POC Glucose (mg/dL) 275 H 264 H (70-110) mg/dL Microbiology - Last 24 Hours (Table) 05/03/25 19:45 Gram Stain - Final Sputum Sputum Culture - Final 05/02/25 11:46 Blood Culture - Preliminary Blood
--- NOTE | 2025-05-06 15:09 | P.PN ---
Subjective Progress Note Date: 05/06/25 SURGICAL PROGRESS NOTE CHIEF COMPLAINT: Respiratory failure HISTORY OF PRESENT ILLNESS: Patient postop day #1 status post tracheostomy and PEG tube placement. Patient is tolerating tube feeds. Tube feeds currently at 20 mL/h. Patient is awake. WBC is 22 PHYSICAL EXAM: VITAL SIGNS: Reviewed. GENERAL: Well-developed in no acute distress. HEENT: Tracheostomy site with clear secretions ABDOMEN: Soft. Nondistended. PEG tube site clean dry and intact NEUROLOGIC: Awake ASSESSMENT: 1. Respiratory failure 2. Severe protein calorie malnutrition PLAN: - Continue to titrate tube feeds - Continue tracheostomy care - Continue ICU management Physician Draw Frame Tender note has been reviewed by physician. Signing provider agrees with the documented findings, assessment, and plan of care. I have personally seen and examined the patient, reviewed the SAMPLER TESTER /PAs history, exam and MDM and agree with the assessment and plan as written. Based on total visit time, I have performed more than 50% of the visit. As above: Patient tolerating tube feeds at 20 cc/h. White blood cell count improved. Tentative plans for extubation with home hospice. May advance tube feeds as tolerates. Objective - Vital Signs Vital signs: Vital Signs Temp 99.3 F 05/06/25 09:00 Pulse 90 05/06/25 12:00 Resp 16 05/06/25 12:00 BP 126/68 05/06/25 12:00 Pulse Ox 96 05/06/25 12:00 FiO2 45 05/06/25 12:00 Intake & Output 05/05/25 05/06/25 05/06/25 18:59 06:59 18:59 Intake Total 2260 1320 110 Output Total 910 900 500 Balance 1350 420 -390 Weight 99 kg Intake: IV 1900 1320 110 Cefepime 2 gm In Sodium 100 Chloride 0.9% 100 ml @ 25 mls/hr IVPB Q8H [facility] Rx#: [id number] Dextrose 5% in Water 1, 1000 1200 100 000 ml @ 100 mls/hr IV . Q10H [facility] Rx#:[id number] Sodium Chloride 0.9% 1, 100 120 10 000 ml @ 10 mls/hr IV . Q24H [facility] Rx#:[id number] Intake, IV Titration 100 Amount Cefepime 2 gm In Sodium 100 Chloride 0.9% 100 ml @ 25 mls/hr IVPB Q8H [facility] Rx#: [id number] Oral 50 Tube Feeding 210 0 0 Output: Urine 910 900 500 Other: Voiding Method Indwelling Catheter Indwelling Catheter Indwelling Catheter ABP, PAP, CO, CI - Last Documented Arterial Blood Pressure 147/60 - Labs CBC & Chem 7: 05/06/25 05:27 07 05:27 Labs: Abnormal Lab Results - Last 24 Hours (Table) 05/05/25 05/05/25 05/05/25 Range/Units 17:27 19:47 23:09 WBC (4.50-10.00) 10*3/uL RBC (4.40-5.60) 10*6/uL Hgb (13.0-17.0) g/dL Hct (39.6-50.0) % MCHC (32.0-37.0) g/dL ABG pH (7.35-7.45) ABG pCO2 (35-45) mmHg ABG pO2 (83-108) mmHg ABG HCO3 (21-25) mmol/L ABG Total CO2 (19-24) mmol/L Hemoglobin (13.0-17.5) gm/dL Sodium (137-145) mmol/L Carbon Dioxide (22-30) mmol/L BUN (9-20) mg/dL Creatinine (0.66-1.25) mg/dL Glucose (74-99) mg/dL POC Glucose (mg/dL) 130 H 123 H 125 H (70-110) mg/dL 05/06/25 05/06/25 05/06/25 Range/Units 05:20 05:27 05:27 WBC 22.34 H (4.50-10.00) 10*3/uL RBC 3.34 L (4.40-5.60) 10*6/uL Hgb 9.5 L (13.0-17.0) g/dL Hct 31.3 L (39.6-50.0) % MCHC 30.4 L (32.0-37.0) g/dL ABG pH 7.46 H (7.35-7.45) ABG pCO2 55 H (35-45) mmHg ABG pO2 68 L (83-108) mmHg ABG HCO3 40 H* (21-25) mmol/L ABG Total CO2 41 H (19-24) mmol/L Hemoglobin 9.6 L (13.0-17.5) gm/dL Sodium 147 H (137-145) mmol/L Carbon Dioxide 39 H (22-30) mmol/L BUN 41 H (9-20) mg/dL Creatinine 0.63 L (0.66-1.25) mg/dL Glucose 261 H (74-99) mg/dL POC Glucose (mg/dL) (70-110) mg/dL 05/06/25 05/06/25 Range/Units 05:31 11:50 WBC (4.50-10.00) 10*3/uL RBC (4.40-5.60) 10*6/uL Hgb (13.0-17.0) g/dL Hct (39.6-50.0) % MCHC (32.0-37.0) g/dL ABG pH (7.35-7.45) ABG pCO2 (35-45) mmHg ABG pO2 (83-108) mmHg ABG HCO3 (21-25) mmol/L ABG Total CO2 (19-24) mmol/L Hemoglobin (13.0-17.5) gm/dL Sodium (137-145) mmol/L Carbon Dioxide (22-30) mmol/L BUN (9-20) mg/dL Creatinine (0.66-1.25) mg/dL Glucose (74-99) mg/dL POC Glucose (mg/dL) 275 H 264 H (70-110) mg/dL Microbiology - Last 24 Hours (Table) 05/03/25 19:45 Gram Stain - Final Sputum Sputum Culture - Final 05/02/25 11:46 Blood Culture - Preliminary Blood
[2025-05-06 17:45] LABS: Glucose,Whole Blood 195 mg/dL (70-110)
[2025-05-06 19:59] LABS: Glucose,Whole Blood 203 mg/dL (70-110)
[2025-05-06 23:18] LABS: Glucose,Whole Blood 263 mg/dL (70-110)
[2025-05-07 05:40] LABS: Glucose,Whole Blood 165 mg/dL (70-110)
[2025-05-07 05:58] LABS: Glucose,Whole Blood 176 mg/dL (70-110)
[2025-05-07 06:06] LABS: Basophils # (A) 0.06 10*3/uL (0.00-0.10); Basophils % (A) 0.2 %; Eosinophils # (A) 0.00 10*3/uL (0.04-0.35); Eosinophils % (A) 0.0 %; HCT 30.3 % (39.6-50.0); HGB 9.3 g/dL (13.0-17.0); Lymphocytes # (A) 0.40 10*3/uL (0.90-5.00); Lymphocytes % (A) 1.5 %; MCH 28.3 pg (27.0-32.0); MCHC 30.7 g/dL (32.0-37.0); MCV 92.1 fL (80.0-97.0); Monocytes # (A) 0.65 10*3/uL (0.20-1.00); Monocytes % (A) 2.4 %; Neutrophils # (A) 25.82 10*3/uL (1.80-7.70); Neutrophils % (A) 95.1 %; Platelet Count 150 10*3/uL (140-440); RBC 3.29 10*6/uL (4.40-5.60); RDW 14.7 % (11.5-14.5); WBC 27.16 10*3/uL (4.50-10.00)
[2025-05-07 06:11] LABS: ABG HCO3 39 mmol/L (21-25); ABG PCO2 54 mmHg (35-45); ABG PH 7.47 (7.35-7.45); ABG PO2 66 mmHg (83-108); ABG TCO2 41 mmol/L (19-24); Allen Test Performed? Yes
[2025-05-07 06:48] LABS: African American GFR (CKD) >90 (>60 ml/min/1.73 sqM); Anion Gap 4 mmol/L; Blood Urea Nitrogen 37 mg/dL (9-20); Calcium 8.8 mg/dL (8.4-10.2); Carbon Dioxide 37 mmol/L (22-30); Chloride 99 mmol/L (98-107); Glucose 152 mg/dL (74-99); Non-African American GFR(CKD) >90 (>60 ml/min/1.73 sqM); Sodium 140 mmol/L (137-145)
--- NOTE | 2025-05-07 07:06 | XR ---
EXAMINATION TYPE: XR chest 1V portable DATE OF EXAM: 05/07/2025 5:24 AM COMPARISON: Multiple radiographs, with the most recent on 05/06/2025 TECHNIQUE: XR chest 1V portable Portable AP radiograph of the chest. CLINICAL INDICATION:Male, 64 years old with history of Mechanical ventilation; FINDINGS: Lungs/Pleura: No pneumothorax. Right basilar patchy airspace opacities. Atelectatic changes within th e right upper lobe. No pleural effusion. Pulmonary vascularity: Unremarkable. Heart/mediastinum: Cardiomediastinal silhouette is unremarkable. Atherosclerotic calcifications are seen in the aorta. Post aortic valve repair changes. Musculoskeletal: No acute osseous pathology. Other findings: None Lines/Tubes: Tracheostomy cannula overlying the trachea. Stable left sided approach central venous catheter with distal tip in the high SVC. IMPRESSION: 1. Right basilar patchy airspace opacities concerning for pneumonia. 2. Right upper lobe atelectatic change. [facility], , 05/07/2025 7:03 AM
[2025-05-07 07:07] LABS: Potassium 4.8 mmol/L (3.5-5.1)
[2025-05-07 11:14] LABS: Glucose,Whole Blood 196 mg/dL (70-110)
--- NOTE | 2025-05-07 11:28 | P.PN ---
Subjective Progress Note Date: 05/07/25 SURGICAL PROGRESS NOTE CHIEF COMPLAINT: Respiratory failure HISTORY OF PRESENT ILLNESS: Patient postop day #2 status post tracheostomy and PEG tube placement. Patient is tolerating tube feeds. Tube feeds currently at 60 mL/h. He denies abdominal pain. Afebrile. WBC 22 up to 27 PHYSICAL EXAM: VITAL SIGNS: Reviewed. GENERAL: Well-developed in no acute distress. HEENT: Tracheostomy site clean dry and intact ABDOMEN: Soft. Nondistended. PEG tube site clean dry and intact NEUROLOGIC: Awake ASSESSMENT: 1. Respiratory failure 2. Severe protein calorie malnutrition PLAN: - Continue tube feeds - Continue tracheostomy care - Continue ICU management Physician Choral Director note has been reviewed by physician. Signing provider agrees with the documented findings, assessment, and plan of care. I have personally seen and examined the patient, reviewed the REPORTING CONSULTANT /PAs history, exam and MDM and agree with the assessment and plan as written. Based on total visit time, I have performed more than 50% of the visit. As above: Patient stable on the ventilator. White blood cell count unfortunatel y has been climbing. Tolerating tube feeds at 60 cc/h. Tmax 99.8. Abdomen is soft and nontender. Bolster loosened slightly. No erythema at either incision site. Objective - Vital Signs Vital signs: Vital Signs Temp 99.2 F 05/07/25 04:00 Pulse 82 05/07/25 08:31 Resp 30 H 05/07/25 08:00 BP 131/89 05/07/25 08:00 Pulse Ox 96 05/07/25 08:00 FiO2 45 05/07/25 11:24 Intake & Output 05/06/25 05/07/25 05/07/25 18:59 06:59 18:59 Intake Total 110 2000 900 Output Total 825 1150 340 Balance -715 850 560 Weight 101 kg Intake: IV 110 1280 610 Cefepime 2 gm In Sodium 100 100 Chloride 0.9% 100 ml @ 25 mls/hr IVPB Q8H [facility] Rx#: [id number] Dextrose 5% in Water 1, 100 1100 500 000 ml @ 100 mls/hr IV . Q10H [facility] Rx#:[id number] Sodium Chloride 0.9% 1, 10 80 10 000 ml @ 10 mls/hr IV . Q24H [facility] Rx#:[id number] Tube Feeding 0 490 290 Other 230 Output: Urine 825 1150 340 Other: Voiding Method Indwelling Catheter Indwelling Catheter ABP, PAP, CO, CI - Last Documented Arterial Blood Pressure 147/60 - Labs CBC & Chem 7: 05/07/25 05:15 05/07/25 05:15 Labs: Abnormal Lab Results - Last 24 Hours (Table) 05/06/25 05/06/25 05/06/25 Range/Units 11:50 17:43 19:57 WBC (4.50-10.00) 10*3/uL RBC (4.40-5.60) 10*6/uL Hgb (13.0-17.0) g/dL Hct (39.6-50.0) % MCHC (32.0-37.0) g/dL MPV (9.5-12.2) fL Immature Gran # (0.00-0.04) 10*3/uL Neutrophils # (1.80-7.70) 10*3/uL Lymphocytes # (0.90-5.00) 10*3/uL Eosinophils # (0.04-0.35) 10*3/uL ABG pH (7.35-7.45) ABG pCO2 (35-45) mmHg ABG pO2 (83-108) mmHg ABG HCO3 (21-25) mmol/L ABG Total CO2 (19-24) mmol/L ABG O2 Saturation (94-97) % Hemoglobin (13.0-17.5) gm/dL Carbon Dioxide (22-30) mmol/L BUN (9-20) mg/dL Creatinine (0.66-1.25) mg/dL Glucose (74-99) mg/dL POC Glucose (mg/dL) 264 H 195 H 203 H (70-110) mg/dL 05/06/25 05/07/25 05/07/25 Range/Units 23:17 05:15 05:15 WBC 27.16 H (4.50-10.00) 10*3/uL RBC 3.29 L (4.40-5.60) 10*6/uL Hgb 9.3 L (13.0-17.0) g/dL Hct 30.3 L (39.6-50.0) % MCHC 30.7 L (32.0-37.0) g/dL MPV 12.5 H (9.5-12.2) fL Immature Gran # 0.23 H (0.00-0.04) 10*3/uL Neutrophils # 25.82 H (1.80-7.70) 10*3/uL Lymphocytes # 0.40 L (0.90-5.00) 10*3/uL Eosinophils # 0.00 L (0.04-0.35) 10*3/uL ABG pH (7.35-7.45) ABG pCO2 (35-45) mmHg ABG pO2 (83-108) mmHg ABG HCO3 (21-25) mmol/L ABG Total CO2 (19-24) mmol/L ABG O2 Saturation (94-97) % Hemoglobin (13.0-17.5) gm/dL Carbon Dioxide 37 H (22-30) mmol/L BUN 37 H (9-20) mg/dL Creatinine 0.45 L (0.66-1.25) mg/dL Glucose 152 H (74-99) mg/dL POC Glucose (mg/dL) 263 H (70-110) mg/dL 05/07/25 05/07/25 05/07/25 Range/Units 05:38 05:56 06:05 WBC (4.50-10.00) 10*3/uL RBC (4.40-5.60) 10*6/uL Hgb (13.0-17.0) g/dL Hct (39.6-50.0) % MCHC (32.0-37.0) g/dL MPV (9.5-12.2) fL Immature Gran # (0.00-0.04) 10*3/uL Neutrophils # (1.80-7.70) 10*3/uL Lymphocytes # (0.90-5.00) 10*3/uL Eosinophils # (0.04-0.35) 10*3/uL ABG pH 7.47 H (7.35-7.45) ABG pCO2 54 H (35-45) mmHg ABG pO2 66 L (83-108) mmHg ABG HCO3 39 H (21-25) mmol/L ABG Total CO2 41 H (19-24) mmol/L ABG O2 Saturation 93.8 L (94-97) % Hemoglobin 9.1 L (13.0-17.5) gm/dL Carbon Dioxide (22-30) mmol/L BUN (9-20) mg/dL Creatinine (0.66-1.25) mg/dL Glucose (74-99) mg/dL POC Glucose (mg/dL) 165 H 176 H (70-110) mg/dL 05/07/25 Range/Units 11:13 WBC (4.50-10.00) 10*3/uL RBC (4.40-5.60) 10*6/uL Hgb (13.0-17.0) g/dL Hct (39.6-50.0) % MCHC (32.0-37.0) g/dL MPV (9.5-12.2) fL Immature Gran # (0.00-0.04) 10*3/uL Neutrophils # (1.80-7.70) 10*3/uL Lymphocytes # (0.90-5.00) 10*3/uL Eosinophils # (0.04-0.35) 10*3/uL ABG pH (7.35-7.45) ABG pCO2 (35-45) mmHg ABG pO2 (83-108) mmHg ABG HCO3 (21-25) mmol/L ABG Total CO2 (19-24) mmol/L ABG O2 Saturation (94-97) % Hemoglobin (13.0-17.5) gm/dL Carbon Dioxide (22-30) mmol/L BUN (9-20) mg/dL Creatinine (0.66-1.25) mg/dL Glucose (74-99) mg/dL POC Glucose (mg/dL) 196 H (70-110) mg/dL Microbiology - Last 24 Hours (Table) 05/03/25 19:45 Gram Stain - Final Sputum Sputum Culture - Final
--- NOTE | 2025-05-07 12:58 | P.PN ---
Subjective Progress Note Date: 05/07/25 Hospital Course: 64 year old M with PMH of COPD on 2L home O2, DM, HTN, GERD, HLD presents to the ED for SOB. History is obtained from his at bedside. Patient recently underwent TAVR on 04/15. Surgery was complicated with left flank hematoma. He had been doing well since his surgery. Over the past day, he reported increased shortness of breath not relieved with nebulized treatments. This prompted him to come to the ED. In the ED, he was noted to have agonal breathing and subsequently lost his pulse. [facility] was called. He underwent high quality chest compressions, received 1 round of Epinephrine and intubated by Dr. Glass. ROSC was achieved. EKG showed sinus tachycardia with RBBB,CT brain no acute process,CXR small L pleural effusion,CTA chest no PE,CT AP showed stable left flank matoma Patient was admitted to ICU for further workup and management. Initially started on Zosyn IV for treatment on PNA. Procal 0.97. He was on Levophed for a short period of time initially. Sputum Cx grew Proteus and H. influenzae. Zosyn switched to Rocephin on 04/29. He started to spike fevers as high as 102.2F on 05/01, he was re-cultured and antibiotics was switched to Vancomycin and Cefepime. Elevated Troponin of 0.107, 0.14, 0.214 with EKG showing sinus tachycardia and RBBB. Echo showed EF 65-70% with severe pulmonary hypertension. Cardiology recommending no further workup. CT surgery consulted as well given recent TAVR on 04/15, recommending no surgical intervention. He has been difficult to wean off the ventilator. patient underwent tracheostomy and PEG tube placement on 05/05, 05/07 Seen and examined at bedside, he is not on sedation, was on spontaneous breathing, he is alert, tries to talk, admits having abdominal discomfort at the site of PEG tube. He was able to nod yes or no to my questions. At Tmax 99.8 this morning, blood pressure remained stable. His WBC trended up to 27.1, hemoglobin 9.3, ABG showed pH of 7.4, HSX089 and PO266, sodium and potassium WNL, creatinine 0.45, blood glucose is better controlled. Receiving tube feeds, sputum cultures from 05/03 negative. Discussed with HOME OFFICE REPRESENTATIVE Vitals Signs Reviewed. General: [Intubated, ill-appearing Derm: [warm], [dry] Head: [atraumatic], [normocephalic], [symmetric] tracheostomy in place Eyes: [EOMI], [no lid lag], [anicteric sclera] Mouth: [no lip lesion], [mucus membranes moist], ETT in place Cardiovascular: [S1S2 reg], [no murmur] Lungs: [Bilateral breath sounds , rhonchi present bilaterally Abdominal: [soft], [ nontender to palpation], [no guarding], [no appreciable organomegaly], PEG tube in place Ext: [no gross muscle atrophy bilateral upper extremity edema, lower extremity edema [no contractures] Neuro: [Pupils are equal and reactive Psych: [Awake, alert, nods yes or no Assessment and Plan: Cardiac arrest status post ROSC, likely due to COPD exacerbation Acute hypoxic hypercapnic respiratory failure due to COPD exacerbation, cardiac arrest requiring mechanical ventilation s/p tracheostomy placement 05/05/2025 Haemophilus influenza and Proteus pneumonia plan -Continue , cefepime 2 g IV 3 times daily SOT 05/02, daily BMP and CBC -MRSA negative, however, patient continues to spike fever, awaiting final blood cultures from 05/02 -Continue Tylenol 650 mg p.o. every 6 hours as needed for fever -ulmicort 1mg INH BID. Performist 20 mcg INH BID. Solumedrol 60 mg IV Q6H. Pulmonary on board. Cardiology and CT surgery recommend no further workup. -Continue aspirin 81 mg daily, simvastatin 80 mg p.o. 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 Nutrition Hyperkalemia: Potassium 5.5, 1 dose of Lokelma ordered by ICU, repeat potassium 4.8. Monitor BMP daily Left flank hematoma: Stable per CT CHET on CPAP Hypertension PAD Severe aortic stenosis status post TAVR 04/15/2025 Normocytic anemia with Thrombocytosis: Likely due to left flank hematoma. Monitor and trend. Hyperbilirubinemia with Transaminitis: Likely due to hypotension. Improving. Trend. DVT ppx: Lovenox Code status full code Anticipated discharge place: LT[facility] Anticipated discharge time: TBD Objective - Vital Signs Vital signs: Vital Signs Temp 99.3 F 05/07/25 12:00 Pulse 83 05/07/25 12:00 Resp 21 05/07/25 12:00 BP 126/89 05/07/25 12:00 Pulse Ox 96 05/07/25 12:00 FiO2 45 05/07/25 12:00 Intake & Output 05/06/25 05/07/25 05/07/25 18:59 06:59 18:59 Intake Total 110 2000 900 Output Total 825 1150 340 Balance -715 850 560 Weight 101 kg 101 kg Intake: IV 110 1280 610 Cefepime 2 gm In Sodium 100 100 Chloride 0.9% 100 ml @ 25 mls/hr IVPB Q8H J[facility]OR Rx#: [id number] Dextrose 5% in Water 1, 100 1100 500 000 ml @ 100 mls/hr IV . Q10H J[facility] Rx#:[id number] Sodium Chloride 0.9% 1, 10 80 10 000 ml @ 10 mls/hr IV . Q24H J[facility] Rx#:[id number] Tube Feeding 0 490 290 Other 230 Output: Urine 825 1150 340 Other: Voiding Method Indwelling Catheter Indwelling Catheter Indwelling Catheter ABP, PAP, CO, CI - Last Documented Arterial Blood Pressure 147/60 - Labs CBC & Chem 7: 05/07/25 05:15 05/07/25 05:15 Labs: Abnormal Lab Results - Last 24 Hours (Table) 05/06/25 05/06/25 05/06/25 Range/Units 17:43 19:57 23:17 WBC (4.50-10.00) 10*3/uL RBC (4.40-5.60) 10*6/uL Hgb (13.0-17.0) g/dL Hct (39.6-50.0) % MCHC (32.0-37.0) g/dL MPV (9.5-12.2) fL Immature Gran # (0.00-0.04) 10*3/uL Neutrophils # (1.80-7.70) 10*3/uL Lymphocytes # (0.90-5.00) 10*3/uL Eosinophils # (0.04-0.35) 10*3/uL ABG pH (7.35-7.45) ABG pCO2 (35-45) mmHg ABG pO2 (83-108) mmHg ABG HCO3 (21-25) mmol/L ABG Total CO2 (19-24) mmol/L ABG O2 Saturation (94-97) % Hemoglobin (13.0-17.5) gm/dL Carbon Dioxide (22-30) mmol/L BUN (9-20) mg/dL Creatinine (0.66-1.25) mg/dL Glucose (74-99) mg/dL POC Glucose (mg/dL) 195 H 203 H 263 H (70-110) mg/dL 05/07/25 05/07/25 05/07/25 Range/Units 05:15 05:15 05:38 WBC 27.16 H (4.50-10.00) 10*3/uL RBC 3.29 L (4.40-5.60) 10*6/uL Hgb 9.3 L (13.0-17.0) g/dL Hct 30.3 L (39.6-50.0) % MCHC 30.7 L (32.0-37.0) g/dL MPV 12.5 H (9.5-12.2) fL Immature Gran # 0.23 H (0.00-0.04) 10*3/uL Neutrophils # 25.82 H (1.80-7.70) 10*3/uL Lymphocytes # 0.40 L (0.90-5.00) 10*3/uL Eosinophils # 0.00 L (0.04-0.35) 10*3/uL ABG pH (7.35-7.45) ABG pCO2 (35-45) mmHg ABG pO2 (83-108) mmHg ABG HCO3 (21-25) mmol/L ABG Total CO2 (19-24) mmol/L ABG O2 Saturation (94-97) % Hemoglobin (13.0-17.5) gm/dL Carbon Dioxide 37 H (22-30) mmol/L BUN 37 H (9-20) mg/dL Creatinine 0.45 L (0.66-1.25) mg/dL Glucose 152 H (74-99) mg/dL POC Glucose (mg/dL) 165 H (70-110) mg/dL 05/07/25 05/07/25 05/07/25 Range/Units 05:56 06:05 11:13 WBC (4.50-10.00) 10*3/uL RBC (4.40-5.60) 10*6/uL Hgb (13.0-17.0) g/dL Hct (39.6-50.0) % MCHC (32.0-37.0) g/dL MPV (9.5-12.2) fL Immature Gran # (0.00-0.04) 10*3/uL Neutrophils # (1.80-7.70) 10*3/uL Lymphocytes # (0.90-5.00) 10*3/uL Eosinophils # (0.04-0.35) 10*3/uL ABG pH 7.47 H (7.35-7.45) ABG pCO2 54 H (35-45) mmHg ABG pO2 66 L (83-108) mmHg ABG HCO3 39 H (21-25) mmol/L ABG Total CO2 41 H (19-24) mmol/L ABG O2 Saturation 93.8 L (94-97) % Hemoglobin 9.1 L (13.0-17.5) gm/dL Carbon Dioxide (22-30) mmol/L BUN (9-20) mg/dL Creatinine (0.66-1.25) mg/dL Glucose (74-99) mg/dL POC Glucose (mg/dL) 176 H 196 H (70-110) mg/dL Microbiology - Last 24 Hours (Table) 05/03/25 19:45 Gram Stain - Final Sputum Sputum Culture - Final
--- NOTE | 2025-05-07 13:32 | P.PN ---
Subjective Progress Note Date: 05/07/25 Principal diagnosis: Cardiac arrest A 64-year-old male patient presented to the emergency department with acute respiratory failure. The patient was unresponsive and in respiratory arrest. CPR was immediately initiated. The patient was given a round of epinephrine and CPR and the patient was intubated in the emergency department. He had return of spontaneous circulation. I reviewed the initial EKG post resuscitation and the patient was in normal sinus rhythm with a right bundle branch block pattern. The initial rhythm at the time of his cardiac arrest is not known. Nevertheless, I suspect that the patient had an acute hypoxic/hypercapnic respiratory failure as the patient postintubation was actively bronchospastic and wheezy. I saw the patient immediately post intubation and the patient had very limited air entry bilaterally, active bronchospastic and wheezy and while being on the mechanical ventilator, the patient's peak airway pressure was 50 and the blood gas showed a pH of 7.0 with a PCO2 more than 98 and a pO2 of 232 and this was done at that appointment for 50, rate of 20, FiO2 100% with a PEEP of 5. The chest x-ray was reviewed and it showed a small left-sided pleural effusion. The patient underwent a CT of the chest and a CAT scan of the ab domen. CT of the chest showed no evidence of any pulmonary embolism and the patient had no filling defects. No mediastinal lymphadenopathy or any other acute cardiopulmonary abnormalities. Lungs were essentially clear. CAT scan of the abdomen and pelvis showed left flank hematoma present since 04/22/2025 and this occurred following a TAVR procedure. The patient had a low-density lesion along the left lateral hemipelvis with some mild stranding measuring 7.7 x 4.5 x 13.4 cm in size, likely presenting an intramuscular seroma without any free fluid in the pelvis. Findings were essentially similar compared to the earlier CAT scan on 04/22/2025. No other abnormalities noted. CAT scan of the brain showed no acute intracranial abnormalities. Blood work showed a white cell count of 18.4 with a hemoglobin 9.5 and a platelet count of 516. Normal coagulation profile. K levels of 5.6, bicarb is at 33 with a BUN of 21 and creatinine 0.8. Lactic acid level was at 3.1. Troponins were 0.1 and 0.1 respectively x 2 with a proBNP level of 1000. BUN is 21 with a creatinine of 0.8 and UA was also noted with 4 WBCs. Based on his ongoing hypoxic respiratory failure, high airway pressures and severe bronchospasm wheezing, the patient was started on DuoNeb nebulizer treatments [id number], IV Solu-Medrol and patient was kept on propofol and the patient was also started on paralytics with Nimbex. IV fluids are currently running at the rate of 100 cc of normal saline and the patient is also on low- dose norepinephrine for hemodynamic support. 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 04/28/2025, the patient is being seen for a follow-up. The patient remains intubated on a mechanical ventilator. This morning, the patient sedated with propofol running at 50 mcg/kg/min and Nimbex at 1 mcg/kg/min. Is adequately sedated and paralyzed. He remains on mechanical ventilator, assist-control mode at rate of 30, tidal volume of 400, FiO2 50% with a PEEP of 5. Peak airway pressure is 33. The blood gas showed a pH of 7.24 with a PCO2 of 76 and PO2 of 82. Chest x-ray shows no acute abnormalities. Orotracheal tube was pushed in and it seems to be in satisfactory position. He has some interstitial opacities bilaterally along with background COPD. NG tube is not clearly seen. The patient is on normal saline at rate of 100 cc an hour. Urine output is in order of 40 cc an hour. Fluid balance is +712 cc over the past 24 hours. He is on low-dose norepinephrine running at 0.01 mcg/kg/min. The patient has been COPD and the patient is oxygen dependent and steroid-dependent outpatient basis the patient has been taking 50 mg of prednisone on an outpatient basis. WBC count is at 19 with a hemoglobin 10.2 and a platelet count of 410. Sodium is at 136, potassium is at 5.2, bicarb is at 34, BUN is 40 with a creatinine of 1.1. LFTs are abnormal with an AST of 1110 [place] [address] and a normal alkaline phosphatase. Blood sugar slightly elevated due to steroid use and the patient is on insulin sliding scale coverage. The patient is also on empiric antibiotic coverage with IV Zosyn. The left flank and abdominal hematoma remains unchanged. On 04/29/2025, the patient remains intubated on the mechanical ventilator. The patient is on propofol running at 50 mcg/kg/min and the patient is on Nimbex running at 2 mcg/kg/min. The patient is adequately sedated and paralyzed. This morning, he is on assist-control mode at rate of 30, tidal volume of 400, FiO2 50% with a PEEP of 5. The blood gas showed a pH of 7.28 with a PCO2 of 75 and PO2 of 96. The peak airway pressure is 34. Chest x-ray shows no acute abnormalities. Her procalcitonin level was at 0.97. The patient remains on vi heena high-protein at rate of 40 cc an hour. Fluid balance is +1.1 L over the past 24 hours and the patient is on normal Saint rate of 50 cc an hour. Echocardiogram showed ejection fraction of 65%, dilatation of the RV and the pulmonary artery pressure of around 55. The white cell count of 16.6 with a hemoglobin 9.8 and a platelet count of 395. Sodium is at 135, potassium is at 5.1, bicarbonate 37, BUN 60 with a creatinine of 1.08. AST is 412. ALT is at 1091. Total protein is at 5.7 with an albumin of 3.3. Remains on DuoNeb neb treatment [id number]. Remains on a combination of Perforomist and Pulmicort neb treatments twice a day and IV Solu-Medrol 60 mg every 6 hours. Remains on empiric antibiotic coverage with IV Rocephin. Remains on IV Solu- Medrol. Patient is off pressors for now. CAT scan of the abdomen and pelvis that was done at time of admission showed no significant intra-abdominal abnormalities. Left flank hematoma was essentially unchanged. The patient continues to have a stable hemoglobin and there is no significant drop in hemoglobin over the past 24 hours. He is post TAVR. He has an underlying rhythm that is sinus and the patient has a bundle branch block pattern. On 04/30/2025, the patient is being seen for a follow-up. Remains intubated on mechanical ventilator. The patient remains on propofol which is running at 50 mcg/kg/min and the patient is currently off paralytics. The morning blood gases showed a pH of 7.32 with a PCO2 of 80 and PO2 of 77. This was done on assist- control mode with a rate of 70, tidal volume of 400, FiO2 50% and PEEP of 5. Chest x-ray shows no acute pulmonary infiltrates. A drop in the respiratory rate was down to 20 and FiO2 was dropped down to 40%. Subsequent blood gas showed a pH of 7.23 with a PCO2 of 94 and PO2 of 101. The patient was riding the mechanical ventilator and the patient is deeply sedated. Will gradually wean down his propofol. Meanwhile, morning blood draw showed a elevated potassi um level and the patient had hyperkalemia. Potassium was at 6. The patient was given calcium gluconate, 10 units of insulin and Lokelma 10 mg. Subsequent potassium level improved. The the white cell count is at 19.3 with a hemoglobin 9.4 and a platelet count of 338. The sodium is at 139, most recent potassium level is down to 5.7, the serum bicarb is at 40, chloride is 96. The peak airway pressure is around 35. The patient is on vital high-protein at rate of 55 cc an hour. The patient is also on Lantus insulin for blood sugar control and the patient receiving Lantus 25 units and NovoLog 8 units 3 times daily and a sliding scale coverage. Remains on bronchodilators. Remains on steroids. Remains on Perforomist and Pulmicort nebulized treatments. Remains on empiric antibiotic coverage with IV Rocephin. Sputum sample is positive for Proteus mirabilis and haemophilus. On today's evaluation of 05/01/2025, the patient is being seen for a follow-up. The patient is off paralytics and the patient is currently on propofol running at 35 mcg/kg/min. The patient currently is on a mechanical ventilator assist- control mode at rate of 30, tidal volume of 400, FiO2 of 50% with a PEEP of 5. Patient has a pH of 7.33 with a PCO2 of 79 and PO2 of 80. Sputum positive for Proteus and haemophilus and the patient remains on IV Rocephin. Chest x-ray shows no evidence of pneumonia. Peak airway pressure is around 34. IV fluids are KVO. Fluid balance is -1.1 L. Cardiac rhythm is sinus. No pressors. The patient remains on vital protein at rate of 55 cc an hour. Remains on broncho dilators. Remains on IV Solu-Medrol. Remains on Lantus insulin 25 units along with NovoLog sliding scale coverage. Last flank and abdominal hematoma is unchanged extending to the scrotum. No significant swelling. No drop in the hemoglobin. The blood work from today shows a WBC count of 19.7, hemoglobin 9.2 and platelet count of 307. Serum bicarbonate is 43, sodium is 145, potassium is at 5.3, chloride is 99. 05/02/2025, the patient remains intubated on mechanical ventilator. The patient remains on propofol running at 25 mcg/kg/min. Chest x-ray shows pulm interstitial infiltrates bilaterally. The patient's sputum sample was positive for Proteus and haemophilus influenza. The patient was treated with IV Rocephin. Nevertheless, this morning, the patient noted to be febrile and vani led the fever workup will be done. Will repeat a sputum analysis. Will check a blood cultures. Antibiotics will be modified and the patient will be taken off Rocephin and started on IV cefepime. Patient will be also started on vancomycin pending further cultures. He is on assist-control mode of mechanical ventilation at rate of 30, tidal volume 400, FiO2 50% with a PEEP of 5. pH is at 7.35 with a PCO2 of 78 and PO2 of 86. Peak airway pressure is around 30. Fluid balance is -1.1 L over the past 24 hours. The patient remains on vital high-protein at rate of 71 cc an hour. Lantus for blood sugar control 30 units and the cardiac rhythm is sinus. IV fluids are currently at KVO. Rest of the blood work shows a white cell count of 16, hemoglobin 9.3 and a platelet count of 286. Sodium levels at 151, potassium level is at 5, bicarb is at 45, BUN 50 and creatinine is at 1.03. Blood sugars are 244. LFTs are improving with a drop in the AST and ALT level. COVID-19 testing has been negative. Procalcitonin level is at 0.97. On 05/03/2025, the patient is being seen for a follow-up. The patient remains intubated on a mechanical ventilator. This will be a extremely difficult wean as the patient advanced COPD. The patient remains on propofol at the rate of 35 mcg/kg/min. The sedation holiday was given failed as the patient became tachypneic, hypoxic, tachycardic and he went into cardiac arrhythmias in the form of SVT. Subsequently, the patient was placed back on sedation the patient remains on propofol. The patient remains on assist-control mode at rate of 30, tidal volume of 400, FiO2 50% with a PEEP of 5. Blood gas from today shows a pH of 7.38 with a PCO2 of 70 and PO2 of 60. Chest x-ray findings are essentially unchanged. The patient remains on IV antibiotics as the patient has grown haemophilus and Proteus in the sputum and the patient currently is on IV cefepime. He is also on vancomycin as an empiric antibiotic coverage. Awaiting follow-up sputum samples. Fluid balance is -930 cc over the past 24 hours. The patient is on vital high-protein at rate of 71 cc an hour. Lantus insulin at 30 units/day along with NovoLog 10 units with meal and sliding scale coverage. No pressors for now. Continues to have short runs of a flutter/SVT. Current c ardiac rhythm is sinus. Sodium levels at 155, potassium levels of 4.9, BUN 51 with a creatinine of 0.8. WBC count of 13.2, hemoglobin 9.7 and platelet count is at 275. IV fluids are currently at KVO. Seen today on 05/04/2025, patient remains in the ICU intubated and mechanically ventilated, on assist-control rate of 30 tidal volume 450 FiO2 50% and PEEP of 5 ABG showed a pO2 of 109 pCO2 68 pH of 7.38. Patient remains on D5W at 100 cc/h propofol 35 mcg/kg/min vital HP at 71 cc/h. Patient is also to receive free water 200 mL 4 times daily via orogastric tube. Patient apparently failed wean ing x 2 and he is not ready to be weaned mostly because of his mental status. Today I discussed his condition with the discussed the option of tracheostomy and PEG tube placement discussed the option of comfort care measures. The seems to be very inclined to proceed with tracheostomy and PEG tube placement and continue to try to wean after tracheostomy and PEG tube placement. Patient may actually require even placement after tracheostomy and PEG tube placement depending on his overall clinical status at the time. For now patient will be given trials of weaning from propofol as tolerated, and would like to assess mental status off sedation. And that seems to be difficult to do. Dr. Mchugh already saw the patient for possible tracheostomy and PEG tube placement, and will proceed to do so. Chest x-ray today showed small scattered reticular opacities unchanged, endotracheal tube seems to be high above the yakelin that needs to be advanced patient has a nasogastric tube in place. And he has a left internal jugular central line. Patient was seen today on 05/05/2025, remains intubated and mechanically ventilated. He is on assist-control rate of 30 tidal volume 450 FiO2 45%, PEEP of 5. ABG showed a pO2 of 84 pCO2 65 pH of 7.41, patient is arousable, follows simple instructions but he is profoundly weak. Family is at bedside, and we discussed the option of tracheostomy versus comfort care, would like to proceed with tracheostomy and PEG tube placement, and we will let general surgery aware of this. His WBC count is 16.4 hemoglobin 9.4 electrolytes are normal potassium is a bit high at 5.5, BUN is 50 creatinine 0.67. His sputum was positive for Proteus and for haemophilus. Patient remains on cefepime. Chest x-ray showed small scattered reticular opacities, basically unchanged. Patient was seen today on 05/06/2025, he underwent uneventful tracheostomy and PEG tube placement yesterday. Remains intubated mechanically ventilated, he is on assist-control rate of 30 tidal volume 450 FiO2 45% and PEEP of 5 ABG showed a pO2 of 68 pCO2 55 pH of 7.46. Patient is still on vital HP at 20 cc/h D5W at 100 cc/h, WBC count is 22.3 hemoglobin is 9.5 electrolytes showed sodium down to 147 bicarb is 39 BUN 41 creatinine 0.63. Chest x-ray showed relatively stable findings, no evidence of effusion no evidence of consolidation, no infiltrates. Tracheostomy in proper position and lines are in proper position. Patient was seen today on 05/07/2025, remains in ICU intubated mechanically ventilated, patient is on assist-control rate of 30 tidal volume 450 FiO2 45% and PEEP of 5 patient is awake, follows simple instructions, hence I recommended a trial of pressure support of 12 and CPAP today and keep him on this mode of mechanical ventilation as tolerated. He is on D5W at 100 cc/h, patient is on vital HP at 50 cc/h. ABG showed a pO2 of 66 pCO2 54 pH of 7.47. Chest x-ray showed bibasilar atelectasis, possible infiltrates. Tracheostomy seems to be in tact. Lines are in proper position. WBC count is 27 hemoglobin 9.3 platelets are 150, basic metabolic profile is normal bicarb is 37 BUN is 37 creatinine 0.45 Objective - Vital Signs Vital signs: Vital Signs Temp 99.3 F 05/07/25 12:00 Pulse 83 05/07/25 12:00 Resp 21 05/07/25 12:00 BP 126/89 05/07/25 12:00 Pulse Ox 96 05/07/25 12:00 FiO2 45 05/07/25 12:00 Intake & Output 05/06/25 05/07/25 05/07/25 18:59 06:59 18:59 Intake Total 110 2000 900 Output Total 825 1150 340 Balance -715 850 560 Weight 101 kg 101 kg Intake: IV 110 1280 610 Cefepime 2 gm In Sodium 100 100 Chloride 0.9% 100 ml @ 25 mls/hr IVPB Q8H JÚNIOR Rx#: [id number] Dextrose 5% in Water 1, 100 1100 500 000 ml @ 100 mls/hr IV . Q10H JÚNIOR Rx#:[id number] Sodium Chloride 0.9% 1, 10 80 10 000 ml @ 10 mls/hr IV . Q24H JÚNIOR Rx#:[id number] Tube Feeding 0 490 290 Other 230 Output: Urine 825 1150 340 Other: Voiding Method Indwelling Catheter Indwelling Catheter Indwelling Catheter ABP, PAP, CO, CI - Last Documented Arterial Blood Pressure 147/60 - Exam General: Reveals 64-year-old white male intubated mechanically ventilated, via tracheostomy, awake, follows instructions but seems to be generally weak Derm: warm, dry, no rashes. Head: atraumatic, normocephalic, symmetric tracheostomy is intact Eyes: PERRLA, EOMI, nonicteric. Mouth: Moist mucous membranes no mucous membrane lesions Abdomen: Soft nontender no megaly no rebound, PEG tube is noted Cardiovascular: Distant S1-S2, no S3 gallop, no murmur Lungs: Diminished breath sound bilaterally no crackles rhonchi or wheezes Ext: no gross muscle atrophy, 1-2+ LE pitting edema, no contractures, Neuro: awake follows instructions, weak Psych: Normal mood and affect normal mental status examination - Labs CBC & Chem 7: 05/07/25 05:15 05/07/25 05:15 Labs: Abnormal Lab Results - Last 24 Hours (Table) 05/06/25 05/06/25 05/06/25 Range/Units 17:43 19:57 23:17 WBC (4.50-10.00) 10*3/uL RBC (4.40-5.60) 10*6/uL Hgb (13.0-17.0) g/dL Hct (39.6-50.0) % MCHC (32.0-37.0) g/dL MPV (9.5-12.2) fL Immature Gran # (0.00-0.04) 10*3/uL Neutrophils # (1.80-7.70) 10*3/uL Lymphocytes # (0.90-5.00) 10*3/uL Eosinophils # (0.04-0.35) 10*3/uL ABG pH (7.35-7.45) ABG pCO2 (35-45) mmHg ABG pO2 (83-108) mmHg ABG HCO3 (21-25) mmol/L ABG Total CO2 (19-24) mmol/L ABG O2 Saturation (94-97) % Hemoglobin (13.0-17.5) gm/dL Carbon Dioxide (22-30) mmol/L BUN (9-20) mg/dL Creatinine (0.66-1.25) mg/dL Glucose (74-99) mg/dL POC Glucose (mg/dL) 195 H 203 H 263 H (70-110) mg/dL 05/07/25 05/07/25 05/07/25 Range/Units 05:15 05:15 05:38 WBC 27.16 H (4.50-10.00) 10*3/uL RBC 3.29 L (4.40-5.60) 10*6/uL Hgb 9.3 L (13.0-17.0) g/dL Hct 30.3 L (39.6-50.0) % MCHC 30.7 L (32.0-37.0) g/dL MPV 12.5 H (9.5-12.2) fL Immature Gran # 0.23 H (0.00-0.04) 10*3/uL Neutrophils # 25.82 H (1.80-7.70) 10*3/uL Lymphocytes # 0.40 L (0.90-5.00) 10*3/uL Eosinophils # 0.00 L (0.04-0.35) 10*3/uL ABG pH (7.35-7.45) ABG pCO2 (35-45) mmHg ABG pO2 (83-108) mmHg ABG HCO3 (21-25) mmol/L ABG Total CO2 (19-24) mmol/L ABG O2 Saturation (94-97) % Hemoglobin (13.0-17.5) gm/dL Carbon Dioxide 37 H (22-30) mmol/L BUN 37 H (9-20) mg/dL Creatinine 0.45 L (0.66-1.25) mg/dL Glucose 152 H (74-99) mg/dL POC Glucose (mg/dL) 165 H (70-110) mg/dL 05/07/25 05/07/25 05/07/25 Range/Units 05:56 06:05 11:13 WBC (4.50-10.00) 10*3/uL RBC (4.40-5.60) 10*6/uL Hgb (13.0-17.0) g/dL Hct (39.6-50.0) % MCHC (32.0-37.0) g/dL MPV (9.5-12.2) fL Immature Gran # (0.00-0.04) 10*3/uL Neutrophils # (1.80-7.70) 10*3/uL Lymphocytes # (0.90-5.00) 10*3/uL Eosinophils # (0.04-0.35) 10*3/uL ABG pH 7.47 H (7.35-7.45) ABG pCO2 54 H (35-45) mmHg ABG pO2 66 L (83-108) mmHg ABG HCO3 39 H (21-25) mmol/L ABG Total CO2 41 H (19-24) mmol/L ABG O2 Saturation 93.8 L (94-97) % Hemoglobin 9.1 L (13.0-17.5) gm/dL Carbon Dioxide (22-30) mmol/L BUN (9-20) mg/dL Creatinine (0.66-1.25) mg/dL Glucose (74-99) mg/dL POC Glucose (mg/dL) 176 H 196 H (70-110) mg/dL Assessment and Plan Assessment: Impression: Cardiac arrest requiring intubation mechanical ventilation patient had brief resuscitation in the emergency room he received a round of epinephrine and a round of CPR. Acute hypoxic and hypercapnic respiratory failure secondary to cardiac arrest and COPD exacerbation Acute exacerbation of COPD Pneumonia secondary to haemophilus influenza and Proteus as noted on sputum cultures, remains on cefepime Left flank hematoma status post TAVR Advanced COPD and chronic hypoxic respiratory failure Obstructive sleep apnea syndrome on CPAP on outpatient basis Severe aortic stenosis and previous TAVR on 04/15/2025 Peripheral artery disease with history of left femoral artery occlusion Benign essential hypertension Type 2 diabetes Acute transaminitis, improving Hyperkalemia, being addressed accordingly patient to receive Lokelma today. Hyperchloremic hypernatremia, being addressed. Improving Status post tracheostomy and PEG tube placement on 05/05/2025 Recommendation: Continue ventilatory support however the patient will be given a trial of pressure support and CPAP, pressure support of 12 and CPAP, yesterday he was able to tolerate pressure support and CPAP for at least 4 hours and he was placed back on AC mode overnight. Today the plan is to keep him on pressure support and CPAP as long as it is tolerated, the plan is to eventually titrate the pressure support down and eventually transition to trach collar if possible. Continue bronchodilators Continue antibiotics/cefepime Keep off sedation for now. Continue nutritional support,/enteral feeding via PEG tube Continue GI and DVT prophylaxis Continue Lantus insulin and sliding scale coverage Remains critically ill, long-term prognosis remains relatively guarded Critical care time is 32 minutes Time with Patient: Greater than 30
[2025-05-07 17:23] LABS: Glucose,Whole Blood 192 mg/dL (70-110)
[2025-05-07 23:41] LABS: Glucose,Whole Blood 225 mg/dL (70-110)
[2025-05-08 04:25] LABS: HCT 30.6 % (39.6-50.0); HGB 9.4 g/dL (13.0-17.0); MCH 27.7 pg (27.0-32.0); MCHC 30.7 g/dL (32.0-37.0); MCV 90.3 fL (80.0-97.0); Platelet Count 209 10*3/uL (140-440); RBC 3.39 10*6/uL (4.40-5.60); RDW 14.6 % (11.5-14.5); WBC 28.96 10*3/uL (4.50-10.00)
[2025-05-08 04:38] LABS: ALT 110 U/L (4-49); AST 34 U/L (17-59); African American GFR (CKD) >90 (>60 ml/min/1.73 sqM); Albumin 2.7 g/dL (3.5-5.0); Alkaline Phosphatase 64 U/L (38-126); Anion Gap 3 mmol/L; Blood Urea Nitrogen 34 mg/dL (9-20); Calcium 8.6 mg/dL (8.4-10.2); Carbon Dioxide 37 mmol/L (22-30); Chloride 96 mmol/L (98-107); Glucose 185 mg/dL (74-99); Non-African American GFR(CKD) >90 (>60 ml/min/1.73 sqM); Potassium 4.3 mmol/L (3.5-5.1); Sodium 136 mmol/L (137-145); Total Protein 4.9 g/dL (6.3-8.2)
[2025-05-08 05:51] LABS: Glucose,Whole Blood 255 mg/dL (70-110)
[2025-05-08 05:53] LABS: ABG HCO3 37 mmol/L (21-25); ABG PCO2 55 mmHg (35-45); ABG PH 7.44 (7.35-7.45); ABG PO2 74 mmHg (83-108); ABG TCO2 39 mmol/L (19-24); Allen Test Performed? Yes
--- NOTE | 2025-05-08 07:54 | XR ---
EXAMINATION TYPE: XR chest 1V portable DATE OF EXAM: 05/08/2025 5:08 AM COMPARISON: Chest radiographs from 05/07/2025. CLINICAL INDICATION: Male, 64 years old with history of Mechanical ventilation; [facility] TECHNIQUE: XR chest 1V portable Frontal view of the chest. FINDINGS: Lungs/Pleura: Scattered interstitial prominence with bibasilar airspace opacities. There is no eviden ce of pleural effusion, focal consolidation, or pneumothorax. Pulmonary vascularity: Unremarkable. Heart/mediastinum: Cardiomediastinal silhouette is unremarkable. Musculoskeletal: No acute osseous pathology. Other findings: None Lines/Tubes: Tracheostomy cannula tip projecting over the trachea. Left central venous catheter with distal tip at the cavoatrial junction. IMPRESSION: Scattered interstitial prominence and basilar airspace opacities. [facility], , 05/08/2025 7:52 AM
[2025-05-08 08:35] LABS: Glucose,Whole Blood 211 mg/dL (70-110)
--- NOTE | 2025-05-08 09:53 | P.PN ---
Subjective Progress Note Date: 05/08/25 Principal diagnosis: Respiratory failure Patient is on trach collar this morning. He is awake and relatively alert. Denies pain. Tolerating tube feeds at goal. White blood cell count did increase further to 28. Objective - Vital Signs Vital signs: Vital Signs Temp 97.8 F 05/08/25 08:00 Pulse 71 05/08/25 09:00 Resp 18 05/08/25 09:00 BP 136/78 05/08/25 09:00 Pulse Ox 95 05/08/25 09:00 FiO2 45 05/08/25 09:00 Intake & Output 05/07/25 05/08/25 05/08/25 18:59 06:59 18:59 Intake Total 2640 2420 1050 Output Total 800 870 195 Balance 1840 1550 855 Weight 101 kg 107.5 kg Intake: IV 1470 1360 330 Cefepime 2 gm In Sodium 150 150 100 Chloride 0.9% 100 ml @ 25 mls/hr IVPB Q8H [facility] Rx#: [id number] Dextrose 5% in Water 1, 1300 1100 200 000 ml @ 100 mls/hr IV . Q10H [facility] Rx#:[id number] Sodium Chloride 0.9% 1, 20 110 30 000 ml @ 10 mls/hr IV . Q24H [facility] Rx#:[id number] Tube Feeding 770 660 720 Other 400 400 Output: Urine 800 870 195 Other: Voiding Method Indwelling Catheter Indwelling Catheter ABP, PAP, CO, CI - Last Documented Arterial Blood Pressure 147/60 - Exam Tracheostomy and PEG tube sites without erythema, minimal drainage, nontender - Labs CBC & Chem 7: 05/08/25 03:41 05/08/25 03:41 Labs: Abnormal Lab Results - Last 24 Hours (Table) 05/07/25 05/07/25 05/07/25 Range/Units 11:13 17:21 23:40 WBC (4.50-10.00) 10*3/uL RBC (4.40-5.60) 10*6/uL Hgb (13.0-17.0) g/dL Hct (39.6-50.0) % MCHC (32.0-37.0) g/dL ABG pCO2 (35-45) mmHg ABG pO2 (83-108) mmHg ABG HCO3 (21-25) mmol/L ABG Total CO2 (19-24) mmol/L Hemoglobin (13.0-17.5) gm/dL Sodium (137-145) mmol/L Chloride (98-107) mmol/L Carbon Dioxide (22-30) mmol/L BUN (9-20) mg/dL Creatinine (0.66-1.25) mg/dL Glucose (74-99) mg/dL POC Glucose (mg/dL) 196 H 192 H 225 H (70-110) mg/dL ALT (4-49) U/L Total Protein (6.3-8.2) g/dL Albumin (3.5-5.0) g/dL 05/08/25 05/08/25 05/08/25 Range/Units 03:41 03:41 05:50 WBC 28.96 H (4.50-10.00) 10*3/uL RBC 3.39 L (4.40-5.60) 10*6/uL Hgb 9.4 L (13.0-17.0) g/dL Hct 30.6 L (39.6-50.0) % MCHC 30.7 L (32.0-37.0) g/dL ABG pCO2 (35-45) mmHg ABG pO2 (83-108) mmHg ABG HCO3 (21-25) mmol/L ABG Total CO2 (19-24) mmol/L Hemoglobin (13.0-17.5) gm/dL Sodium 136 L (137-145) mmol/L Chloride 96 L (98-107) mmol/L Carbon Dioxide 37 H (22-30) mmol/L BUN 34 H (9-20) mg/dL Creatinine 0.49 L (0.66-1.25) mg/dL Glucose 185 H (74-99) mg/dL POC Glucose (mg/dL) 255 H (70-110) mg/dL ALT 110 H (4-49) U/L Total Protein 4.9 L (6.3-8.2) g/dL Albumin 2.7 L (3.5-5.0) g/dL 05/08/25 05/08/25 Range/Units 05:53 08:34 WBC (4.50-10.00) 10*3/uL RBC (4.40-5.60) 10*6/uL Hgb (13.0-17.0) g/dL Hct (39.6-50.0) % MCHC (32.0-37.0) g/dL ABG pCO2 55 H (35-45) mmHg ABG pO2 74 L (83-108) mmHg ABG HCO3 37 H (21-25) mmol/L ABG Total CO2 39 H (19-24) mmol/L Hemoglobin 9.6 L (13.0-17.5) gm/dL Sodium (137-145) mmol/L Chloride (98-107) mmol/L Carbon Dioxide (22-30) mmol/L BUN (9-20) mg/dL Creatinine (0.66-1.25) mg/dL Glucose (74-99) mg/dL POC Glucose (mg/dL) 211 H (70-110) mg/dL ALT (4-49) U/L Total Protein (6.3-8.2) g/dL Albumin (3.5-5.0) g/dL Microbiology - Last 24 Hours (Table) 05/02/25 11:46 Blood Culture - Final Blood Assessment and Plan (1) Respiratory failure Narrative/Plan: Patient doing well today. Continue weaning from ventilator. Continue tube feeds at goal. Current Visit: Yes Status: Acute Code(s): J96.90 - RESPIRATORY FAILURE, UNSP, UNSP W HYPOXIA OR HYPERCAPNIA SNOMED Code(s): 374858298
--- NOTE | 2025-05-08 11:29 | P.PN ---
Subjective Progress Note Date: 05/08/25 Objective - Vital Signs Vital signs: Vital Signs Temp 97.8 F 05/08/25 08:00 Pulse 71 05/08/25 09:00 Resp 18 05/08/25 09:00 BP 136/78 05/08/25 09:00 Pulse Ox 95 05/08/25 09:00 FiO2 45 05/08/25 09:00 Intake & Output 05/07/25 05/08/25 05/08/25 18:59 06:59 18:59 Intake Total 2640 2420 1050 Output Total 800 870 195 Balance 1840 1550 855 Weight 101 kg 107.5 kg Intake: IV 1470 1360 330 Cefepime 2 gm In Sodium 150 150 100 Chloride 0.9% 100 ml @ 25 mls/hr IVPB Q8H [facility] Rx#: [id number] Dextrose 5% in Water 1, 1300 1100 200 000 ml @ 100 mls/hr IV . Q10H [facility] Rx#:[id number] Sodium Chloride 0.9% 1, 20 110 30 000 ml @ 10 mls/hr IV . Q24H [facility] Rx#:[id number] Tube Feeding 770 660 720 Other 400 400 Output: Urine 800 870 195 Other: Voiding Method Indwelling Catheter Indwelling Catheter ABP, PAP, CO, CI - Last Documented Arterial Blood Pressure 147/60 - Labs CBC & Chem 7: 05/08/25 03:41 05/08/25 03:41 Labs: Abnormal Lab Results - Last 24 Hours (Table) 05/07/25 05/07/25 05/08/25 Range/Units 17:21 23:40 03:41 WBC 28.96 H (4.50-10.00) 10*3/uL RBC 3.39 L (4.40-5.60) 10*6/uL Hgb 9.4 L (13.0-17.0) g/dL Hct 30.6 L (39.6-50.0) % MCHC 30.7 L (32.0-37.0) g/dL ABG pCO2 (35-45) mmHg ABG pO2 (83-108) mmHg ABG HCO3 (21-25) mmol/L ABG Total CO2 (19-24) mmol/L Hemoglobin (13.0-17.5) gm/dL Sodium (137-145) mmol/L Chloride (98-107) mmol/L Carbon Dioxide (22-30) mmol/L BUN (9-20) mg/dL Creatinine (0.66-1.25) mg/dL Glucose (74-99) mg/dL POC Glucose (mg/dL) 192 H 225 H (70-110) mg/dL ALT (4-49) U/L Total Protein (6.3-8.2) g/dL Albumin (3.5-5.0) g/dL 05/08/25 05/08/25 05/08/25 Range/Units 03:41 05:50 05:53 WBC (4.50-10.00) 10*3/uL RBC (4.40-5.60) 10*6/uL Hgb (13.0-17.0) g/dL Hct (39.6-50.0) % MCHC (32.0-37.0) g/dL ABG pCO2 55 H (35-45) mmHg ABG pO2 74 L (83-108) mmHg ABG HCO3 37 H (21-25) mmol/L ABG Total CO2 39 H (19-24) mmol/L Hemoglobin 9.6 L (13.0-17.5) gm/dL Sodium 136 L (137-145) mmol/L Chloride 96 L (98-107) mmol/L Carbon Dioxide 37 H (22-30) mmol/L BUN 34 H (9-20) mg/dL Creatinine 0.49 L (0.66-1.25) mg/dL Glucose 185 H (74-99) mg/dL POC Glucose (mg/dL) 255 H (70-110) mg/dL ALT 110 H (4-49) U/L Total Protein 4.9 L (6.3-8.2) g/dL Albumin 2.7 L (3.5-5.0) g/dL 05/08/25 Range/Units 08:34 WBC (4.50-10.00) 10*3/uL RBC (4.40-5.60) 10*6/uL Hgb (13.0-17.0) g/dL Hct (39.6-50.0) % MCHC (32.0-37.0) g/dL ABG pCO2 (35-45) mmHg ABG pO2 (83-108) mmHg ABG HCO3 (21-25) mmol/L ABG Total CO2 (19-24) mmol/L Hemoglobin (13.0-17.5) gm/dL Sodium (137-145) mmol/L Chloride (98-107) mmol/L Carbon Dioxide (22-30) mmol/L BUN (9-20) mg/dL Creatinine (0.66-1.25) mg/dL Glucose (74-99) mg/dL POC Glucose (mg/dL) 211 H (70-110) mg/dL ALT (4-49) U/L Total Protein (6.3-8.2) g/dL Albumin (3.5-5.0) g/dL Microbiology - Last 24 Hours (Table) 05/02/25 11:46 Blood Culture - Final Blood
[2025-05-08 11:34] LABS: Glucose,Whole Blood 164 mg/dL (70-110)
--- NOTE | 2025-05-08 12:30 | P.PN ---
Subjective Progress Note Date: 05/08/25 Principal diagnosis: Cardiac arrest A 64-year-old male patient presented to the emergency department with acute respiratory failure. The patient was unresponsive and in respiratory arrest. CPR was immediately initiated. The patient was given a round of epinephrine and CPR and the patient was intubated in the emergency department. He had return of spontaneous circulation. I reviewed the initial EKG post resuscitation and the patient was in normal sinus rhythm with a right bundle branch block pattern. The initial rhythm at the time of his cardiac arrest is not known. Nevertheless, I suspect that the patient had an acute hypoxic/hypercapnic respiratory failure as the patient postintubation was actively bronchospastic and wheezy. I saw the patient immediately post intubation and the patient had very limited air entry bilaterally, active bronchospastic and wheezy and while being on the mechanical ventilator, the patient's peak airway pressure was 50 and the blood gas showed a pH of 7.0 with a PCO2 more than 98 and a pO2 of 232 and this was done at that appointment for 50, rate of 20, FiO2 100% with a PEEP of 5. The chest x-ray was reviewed and it showed a small left-sided pleural effusion. The patient underwent a CT of the chest and a CAT scan of the ab domen. CT of the chest showed no evidence of any pulmonary embolism and the patient had no filling defects. No mediastinal lymphadenopathy or any other acute cardiopulmonary abnormalities. Lungs were essentially clear. CAT scan of the abdomen and pelvis showed left flank hematoma present since 04/22/2025 and this occurred following a TAVR procedure. The patient had a low-density lesion along the left lateral hemipelvis with some mild stranding measuring 7.7 x 4.5 x 13.4 cm in size, likely presenting an intramuscular seroma without any free fluid in the pelvis. Findings were essentially similar compared to the earlier CAT scan on 04/22/2025. No other abnormalities noted. CAT scan of the brain showed no acute intracranial abnormalities. Blood work showed a white cell count of 18.4 with a hemoglobin 9.5 and a platelet count of 516. Normal coagulation profile. K levels of 5.6, bicarb is at 33 with a BUN of 21 and creatinine 0.8. Lactic acid level was at 3.1. Troponins were 0.1 and 0.1 respectively x 2 with a proBNP level of 1000. BUN is 21 with a creatinine of 0.8 and UA was also noted with 4 WBCs. Based on his ongoing hypoxic respiratory failure, high airway pressures and severe bronchospasm wheezing, the patient was started on DuoNeb nebulizer treatments [id number], IV Solu-Medrol and patient was kept on propofol and the patient was also started on paralytics with Nimbex. IV fluids are currently running at the rate of 100 cc of normal saline and the patient is also on low- dose norepinephrine for hemodynamic support. 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 04/28/2025, the patient is being seen for a follow-up. The patient remains intubated on a mechanical ventilator. This morning, the patient sedated with propofol running at 50 mcg/kg/min and Nimbex at 1 mcg/kg/min. Is adequately sedated and paralyzed. He remains on mechanical ventilator, assist-control mode at rate of 30, tidal volume of 400, FiO2 50% with a PEEP of 5. Peak airway pressure is 33. The blood gas showed a pH of 7.24 with a PCO2 of 76 and PO2 of 82. Chest x-ray shows no acute abnormalities. Orotracheal tube was pushed in and it seems to be in satisfactory position. He has some interstitial opacities bilaterally along with background COPD. NG tube is not clearly seen. The patient is on normal saline at rate of 100 cc an hour. Urine output is in order of 40 cc an hour. Fluid balance is +712 cc over the past 24 hours. He is on low-dose norepinephrine running at 0.01 mcg/kg/min. The patient has been COPD and the patient is oxygen dependent and steroid-dependent outpatient basis the patient has been taking 50 mg of prednisone on an outpatient basis. WBC count is at 19 with a hemoglobin 10.2 and a platelet count of 410. Sodium is at 136, potassium is at 5.2, bicarb is at 34, BUN is 40 with a creatinine of 1.1. LFTs are abnormal with an AST of 1110 [place] [address] and a normal alkaline phosphatase. Blood sugar slightly elevated due to steroid use and the patient is on insulin sliding scale coverage. The patient is also on empiric antibiotic coverage with IV Zosyn. The left flank and abdominal hematoma remains unchanged. On 04/29/2025, the patient remains intubated on the mechanical ventilator. The patient is on propofol running at 50 mcg/kg/min and the patient is on Nimbex running at 2 mcg/kg/min. The patient is adequately sedated and paralyzed. This morning, he is on assist-control mode at rate of 30, tidal volume of 400, FiO2 50% with a PEEP of 5. The blood gas showed a pH of 7.28 with a PCO2 of 75 and PO2 of 96. The peak airway pressure is 34. Chest x-ray shows no acute abnormalities. Her procalcitonin level was at 0.97. The patient remains on vi heena high-protein at rate of 40 cc an hour. Fluid balance is +1.1 L over the past 24 hours and the patient is on normal Saint rate of 50 cc an hour. Echocardiogram showed ejection fraction of 65%, dilatation of the RV and the pulmonary artery pressure of around 55. The white cell count of 16.6 with a hemoglobin 9.8 and a platelet count of 395. Sodium is at 135, potassium is at 5.1, bicarbonate 37, BUN 60 with a creatinine of 1.08. AST is 412. ALT is at 1091. Total protein is at 5.7 with an albumin of 3.3. Remains on DuoNeb neb treatment [id number]. Remains on a combination of Perforomist and Pulmicort neb treatments twice a day and IV Solu-Medrol 60 mg every 6 hours. Remains on empiric antibiotic coverage with IV Rocephin. Remains on IV Solu- Medrol. Patient is off pressors for now. CAT scan of the abdomen and pelvis that was done at time of admission showed no significant intra-abdominal abnormalities. Left flank hematoma was essentially unchanged. The patient continues to have a stable hemoglobin and there is no significant drop in hemoglobin over the past 24 hours. He is post TAVR. He has an underlying rhythm that is sinus and the patient has a bundle branch block pattern. On 04/30/2025, the patient is being seen for a follow-up. Remains intubated on mechanical ventilator. The patient remains on propofol which is running at 50 mcg/kg/min and the patient is currently off paralytics. The morning blood gases showed a pH of 7.32 with a PCO2 of 80 and PO2 of 77. This was done on assist- control mode with a rate of 70, tidal volume of 400, FiO2 50% and PEEP of 5. Chest x-ray shows no acute pulmonary infiltrates. A drop in the respiratory rate was down to 20 and FiO2 was dropped down to 40%. Subsequent blood gas showed a pH of 7.23 with a PCO2 of 94 and PO2 of 101. The patient was riding the mechanical ventilator and the patient is deeply sedated. Will gradually wean down his propofol. Meanwhile, morning blood draw showed a elevated potassi um level and the patient had hyperkalemia. Potassium was at 6. The patient was given calcium gluconate, 10 units of insulin and Lokelma 10 mg. Subsequent potassium level improved. The the white cell count is at 19.3 with a hemoglobin 9.4 and a platelet count of 338. The sodium is at 139, most recent potassium level is down to 5.7, the serum bicarb is at 40, chloride is 96. The peak airway pressure is around 35. The patient is on vital high-protein at rate of 55 cc an hour. The patient is also on Lantus insulin for blood sugar control and the patient receiving Lantus 25 units and NovoLog 8 units 3 times daily and a sliding scale coverage. Remains on bronchodilators. Remains on steroids. Remains on Perforomist and Pulmicort nebulized treatments. Remains on empiric antibiotic coverage with IV Rocephin. Sputum sample is positive for Proteus mirabilis and haemophilus. On today's evaluation of 05/01/2025, the patient is being seen for a follow-up. The patient is off paralytics and the patient is currently on propofol running at 35 mcg/kg/min. The patient currently is on a mechanical ventilator assist- control mode at rate of 30, tidal volume of 400, FiO2 of 50% with a PEEP of 5. Patient has a pH of 7.33 with a PCO2 of 79 and PO2 of 80. Sputum positive for Proteus and haemophilus and the patient remains on IV Rocephin. Chest x-ray shows no evidence of pneumonia. Peak airway pressure is around 34. IV fluids are KVO. Fluid balance is -1.1 L. Cardiac rhythm is sinus. No pressors. The patient remains on vital protein at rate of 55 cc an hour. Remains on broncho dilators. Remains on IV Solu-Medrol. Remains on Lantus insulin 25 units along with NovoLog sliding scale coverage. Last flank and abdominal hematoma is unchanged extending to the scrotum. No significant swelling. No drop in the hemoglobin. The blood work from today shows a WBC count of 19.7, hemoglobin 9.2 and platelet count of 307. Serum bicarbonate is 43, sodium is 145, potassium is at 5.3, chloride is 99. 05/02/2025, the patient remains intubated on mechanical ventilator. The patient remains on propofol running at 25 mcg/kg/min. Chest x-ray shows pulm interstitial infiltrates bilaterally. The patient's sputum sample was positive for Proteus and haemophilus influenza. The patient was treated with IV Rocephin. Nevertheless, this morning, the patient noted to be febrile and vani led the fever workup will be done. Will repeat a sputum analysis. Will check a blood cultures. Antibiotics will be modified and the patient will be taken off Rocephin and started on IV cefepime. Patient will be also started on vancomycin pending further cultures. He is on assist-control mode of mechanical ventilation at rate of 30, tidal volume 400, FiO2 50% with a PEEP of 5. pH is at 7.35 with a PCO2 of 78 and PO2 of 86. Peak airway pressure is around 30. Fluid balance is -1.1 L over the past 24 hours. The patient remains on vital high-protein at rate of 71 cc an hour. Lantus for blood sugar control 30 units and the cardiac rhythm is sinus. IV fluids are currently at KVO. Rest of the blood work shows a white cell count of 16, hemoglobin 9.3 and a platelet count of 286. Sodium levels at 151, potassium level is at 5, bicarb is at 45, BUN 50 and creatinine is at 1.03. Blood sugars are 244. LFTs are improving with a drop in the AST and ALT level. COVID-19 testing has been negative. Procalcitonin level is at 0.97. On 05/03/2025, the patient is being seen for a follow-up. The patient remains intubated on a mechanical ventilator. This will be a extremely difficult wean as the patient advanced COPD. The patient remains on propofol at the rate of 35 mcg/kg/min. The sedation holiday was given failed as the patient became tachypneic, hypoxic, tachycardic and he went into cardiac arrhythmias in the form of SVT. Subsequently, the patient was placed back on sedation the patient remains on propofol. The patient remains on assist-control mode at rate of 30, tidal volume of 400, FiO2 50% with a PEEP of 5. Blood gas from today shows a pH of 7.38 with a PCO2 of 70 and PO2 of 60. Chest x-ray findings are essentially unchanged. The patient remains on IV antibiotics as the patient has grown haemophilus and Proteus in the sputum and the patient currently is on IV cefepime. He is also on vancomycin as an empiric antibiotic coverage. Awaiting follow-up sputum samples. Fluid balance is -930 cc over the past 24 hours. The patient is on vital high-protein at rate of 71 cc an hour. Lantus insulin at 30 units/day along with NovoLog 10 units with meal and sliding scale coverage. No pressors for now. Continues to have short runs of a flutter/SVT. Current c ardiac rhythm is sinus. Sodium levels at 155, potassium levels of 4.9, BUN 51 with a creatinine of 0.8. WBC count of 13.2, hemoglobin 9.7 and platelet count is at 275. IV fluids are currently at KVO. Seen today on 05/04/2025, patient remains in the ICU intubated and mechanically ventilated, on assist-control rate of 30 tidal volume 450 FiO2 50% and PEEP of 5 ABG showed a pO2 of 109 pCO2 68 pH of 7.38. Patient remains on D5W at 100 cc/h propofol 35 mcg/kg/min vital HP at 71 cc/h. Patient is also to receive free water 200 mL 4 times daily via orogastric tube. Patient apparently failed wean ing x 2 and he is not ready to be weaned mostly because of his mental status. Today I discussed his condition with the discussed the option of tracheostomy and PEG tube placement discussed the option of comfort care measures. The seems to be very inclined to proceed with tracheostomy and PEG tube placement and continue to try to wean after tracheostomy and PEG tube placement. Patient may actually require even placement after tracheostomy and PEG tube placement depending on his overall clinical status at the time. For now patient will be given trials of weaning from propofol as tolerated, and would like to assess mental status off sedation. And that seems to be difficult to do. Dr. Mchugh already saw the patient for possible tracheostomy and PEG tube placement, and will proceed to do so. Chest x-ray today showed small scattered reticular opacities unchanged, endotracheal tube seems to be high above the yakelin that needs to be advanced patient has a nasogastric tube in place. And he has a left internal jugular central line. Patient was seen today on 05/05/2025, remains intubated and mechanically ventilated. He is on assist-control rate of 30 tidal volume 450 FiO2 45%, PEEP of 5. ABG showed a pO2 of 84 pCO2 65 pH of 7.41, patient is arousable, follows simple instructions but he is profoundly weak. Family is at bedside, and we discussed the option of tracheostomy versus comfort care, would like to proceed with tracheostomy and PEG tube placement, and we will let general surgery aware of this. His WBC count is 16.4 hemoglobin 9.4 electrolytes are normal potassium is a bit high at 5.5, BUN is 50 creatinine 0.67. His sputum was positive for Proteus and for haemophilus. Patient remains on cefepime. Chest x-ray showed small scattered reticular opacities, basically unchanged. Patient was seen today on 05/06/2025, he underwent uneventful tracheostomy and PEG tube placement yesterday. Remains intubated mechanically ventilated, he is on assist-control rate of 30 tidal volume 450 FiO2 45% and PEEP of 5 ABG showed a pO2 of 68 pCO2 55 pH of 7.46. Patient is still on vital HP at 20 cc/h D5W at 100 cc/h, WBC count is 22.3 hemoglobin is 9.5 electrolytes showed sodium down to 147 bicarb is 39 BUN 41 creatinine 0.63. Chest x-ray showed relatively stable findings, no evidence of effusion no evidence of consolidation, no infiltrates. Tracheostomy in proper position and lines are in proper position. Patient was seen today on 05/07/2025, remains in ICU intubated mechanically ventilated, patient is on assist-control rate of 30 tidal volume 450 FiO2 45% and PEEP of 5 patient is awake, follows simple instructions, hence I recommended a trial of pressure support of 12 and CPAP today and keep him on this mode of mechanical ventilation as tolerated. He is on D5W at 100 cc/h, patient is on vital HP at 50 cc/h. ABG showed a pO2 of 66 pCO2 54 pH of 7.47. Chest x-ray showed bibasilar atelectasis, possible infiltrates. Tracheostomy seems to be in tact. Lines are in proper position. WBC count is 27 hemoglobin 9.3 platelets are 150, basic metabolic profile is normal bicarb is 37 BUN is 37 creatinine 0.45 Patient was seen today on 05/08/2025, patient remains in the ICU, intubated and mechanically ventilated, patient tolerated quite well a trial of pressure support of 12 and CPAP yesterday, however at night he was placed back on AC mode of mechanical ventilation. This morning the patient is on pressure support and CPAP again, he is on pressure support of 14/5, and I had him briefly on a pressure support of 8/5, patient was moving good tidal volume and did not seem to be in distress, then I recommended we proceed to trach collar. He will have trach collar at 45%. Remains on IV fluid at KVO remains on vital HP at 60 cc/h remains on cefepime for Proteus and H. influenzae noted in the sputum. Chest x- ray is showing improvement in his overall opacities. Hence I am recommending a trial of weaning today to trach collar. Labs today showed persistently elevated WBC count of 28.9 hemoglobin 9.4 electrolytes are normal bicarb is 37 BUN is 34 creatinine 0.49. Objective - Vital Signs Vital signs: Vital Signs Temp 97.8 F 05/08/25 12:00 Pulse 75 05/08/25 12:09 Resp 20 05/08/25 12:00 BP 121/76 05/08/25 12:00 Pulse Ox 94 L 05/08/25 12:00 FiO2 60 05/08/25 12:00 Intake & Output 05/07/25 05/08/25 05/08/25 18:59 06:59 18:59 Intake Total 2640 2420 750 Output Total 800 870 335 Balance 1840 1550 415 Weight 101 kg 107.5 kg Intake: IV 1470 1360 360 Cefepime 2 gm In Sodium 150 150 100 Chloride 0.9% 100 ml @ 25 mls/hr IVPB Q8H [facility] Rx#: [id number] Dextrose 5% in Water 1, 1300 1100 200 000 ml @ 100 mls/hr IV . Q10H [facility] Rx#:[id number] Sodium Chloride 0.9% 1, 20 110 60 000 ml @ 10 mls/hr IV . Q24H [facility] Rx#:[id number] Tube Feeding 770 660 360 Other 400 400 30 Output: Urine 800 870 335 Other: Voiding Method Indwelling Catheter Indwelling Catheter ABP, PAP, CO, CI - Last Documented Arterial Blood Pressure 147/60 - Exam General: Reveals 64-year-old white male intubated mechanically ventilated Derm: warm, dry, no rashes. Head: atraumatic, normocephalic, symmetric tracheostomy is intact Eyes: PERRLA, EOMI, nonicteric. Mouth: Moist mucous membranes no mucous membrane lesions Abdomen: Soft nontender no megaly no rebound, PEG tube is noted, intact Cardiovascular: Distant S1-S2, no S3 gallop, no murmur Lungs: Diminished breath sounds at the bases no crackles or wheezes Ext: no gross muscle atrophy, 1-2+ LE pitting edema, no contractures, Neuro: Arousable, seems to be alert and oriented x 3, no gross focal neurologic deficit. Patient is generally weak. Psych: Normal mood and affect normal mental status examination - Labs CBC & Chem 7: 05/08/25 03:41 05/08/25 03:41 Labs: Abnormal Lab Results - Last 24 Hours (Table) 05/07/25 05/07/25 05/08/25 Range/Units 17:21 23:40 03:41 WBC 28.96 H (4.50-10.00) 10*3/uL RBC 3.39 L (4.40-5.60) 10*6/uL Hgb 9.4 L (13.0-17.0) g/dL Hct 30.6 L (39.6-50.0) % MCHC 30.7 L (32.0-37.0) g/dL ABG pCO2 (35-45) mmHg ABG pO2 (83-108) mmHg ABG HCO3 (21-25) mmol/L ABG Total CO2 (19-24) mmol/L Hemoglobin (13.0-17.5) gm/dL Sodium (137-145) mmol/L Chloride (98-107) mmol/L Carbon Dioxide (22-30) mmol/L BUN (9-20) mg/dL Creatinine (0.66-1.25) mg/dL Glucose (74-99) mg/dL POC Glucose (mg/dL) 192 H 225 H (70-110) mg/dL ALT (4-49) U/L Total Protein (6.3-8.2) g/dL Albumin (3.5-5.0) g/dL 05/08/25 05/08/25 05/08/25 Range/Units 03:41 05:50 05:53 WBC (4.50-10.00) 10*3/uL RBC (4.40-5.60) 10*6/uL Hgb (13.0-17.0) g/dL Hct (39.6-50.0) % MCHC (32.0-37.0) g/dL ABG pCO2 55 H (35-45) mmHg ABG pO2 74 L (83-108) mmHg ABG HCO3 37 H (21-25) mmol/L ABG Total CO2 39 H (19-24) mmol/L Hemoglobin 9.6 L (13.0-17.5) gm/dL Sodium 136 L (137-145) mmol/L Chloride 96 L (98-107) mmol/L Carbon Dioxide 37 H (22-30) mmol/L BUN 34 H (9-20) mg/dL Creatinine 0.49 L (0.66-1.25) mg/dL Glucose 185 H (74-99) mg/dL POC Glucose (mg/dL) 255 H (70-110) mg/dL ALT 110 H (4-49) U/L Total Protein 4.9 L (6.3-8.2) g/dL Albumin 2.7 L (3.5-5.0) g/dL 05/08/25 05/08/25 Range/Units 08:34 11:33 WBC (4.50-10.00) 10*3/uL RBC (4.40-5.60) 10*6/uL Hgb (13.0-17.0) g/dL Hct (39.6-50.0) % MCHC (32.0-37.0) g/dL ABG pCO2 (35-45) mmHg ABG pO2 (83-108) mmHg ABG HCO3 (21-25) mmol/L ABG Total CO2 (19-24) mmol/L Hemoglobin (13.0-17.5) gm/dL Sodium (137-145) mmol/L Chloride (98-107) mmol/L Carbon Dioxide (22-30) mmol/L BUN (9-20) mg/dL Creatinine (0.66-1.25) mg/dL Glucose (74-99) mg/dL POC Glucose (mg/dL) 211 H 164 H (70-110) mg/dL ALT (4-49) U/L Total Protein (6.3-8.2) g/dL Albumin (3.5-5.0) g/dL Microbiology - Last 24 Hours (Table) 05/02/25 11:46 Blood Culture - Final Blood Assessment and Plan Assessment: Impression: Cardiac arrest requiring intubation mechanical ventilation patient had brief resuscitation in the emergency room he received a round of epinephrine and a round of CPR. Acute hypoxic and hypercapnic respiratory failure secondary to cardiac arrest and COPD exacerbation Acute exacerbation of COPD Pneumonia secondary to haemophilus influenza and Proteus as noted on sputum cultures, remains on cefepime Left flank hematoma status post TAVR Advanced COPD and chronic hypoxic respiratory failure Obstructive sleep apnea syndrome on CPAP on outpatient basis Severe aortic stenosis and previous TAVR on 04/15/2025 Peripheral artery disease with history of left femoral artery occlusion Benign essential hypertension Type 2 diabetes Acute transaminitis, improving Hyperkalemia, being addressed accordingly patient to receive Lokelma today. Hyperchloremic hypernatremia, being addressed. Improving Status post tracheostomy and PEG tube placement on 05/05/2025 Recommendation: Continue ventilatory support however patient will be given a trial of trach collar today and can always place back on assist volume control mode of mechan ical ventilation if needed or if he does poorly on trach collar. Continue bronchodilators Continue antibiotics/cefepime Continue to hold sedation while on weaning mode/trach collar Continue nutritional support,/enteral feeding via PEG tube Continue GI and DVT prophylaxis Continue Lantus insulin and sliding scale coverage Remains critically ill, prognosis remains guarded in spite of slight improvement noted in the last couple of days. Critical care time is 32 minutes Time with Patient: Greater than 30
[2025-05-08 17:28] LABS: Glucose,Whole Blood 133 mg/dL (70-110)
[2025-05-09 00:22] LABS: Glucose,Whole Blood 228 mg/dL (70-110)
[2025-05-09 06:30] LABS: Glucose,Whole Blood 234 mg/dL (70-110)
--- NOTE | 2025-05-09 07:20 | XR ---
EXAMINATION TYPE: XR chest 1V portable DATE OF EXAM: 05/09/2025 5:17 AM COMPARISON: Chest radiograph from one day prior. CLINICAL INDICATION: Male, 64 years old with history of trached on trach collar, follow up; [facility] TECHNIQUE: XR chest 1V portable Frontal view of the chest. FINDINGS: Lungs/Pleura: Low lung volumes. Scattered interstitial prominence with bibasilar airspace opacities. There is no evidence of pleural effusion, focal consolidation, or pneumothorax. Pulmonary vascularity: Unremarkable. Heart/mediastinum: Cardiomediastinal silhouette is unremarkable. Musculoskeletal: No acute osseous pathology. Other findings: None Lines/Tubes: Tracheostomy cannula tip projecting over the trachea. Left central venous catheter with distal tip at the cavoatrial junction. IMPRESSION: low lung volumes, otherwise similar Scattered interstitial prominence and basilar airspace opacities. [facility], , 05/09/2025 7:18 AM
[2025-05-09 08:28] LABS: HCT 31.5 % (39.6-50.0); HGB 10.2 g/dL (13.0-17.0); MCH 28.6 pg (27.0-32.0); MCHC 32.4 g/dL (32.0-37.0); MCV 88.2 fL (80.0-97.0); Platelet Count 232 10*3/uL (140-440); RBC 3.57 10*6/uL (4.40-5.60); RDW 14.6 % (11.5-14.5); WBC 27.49 10*3/uL (4.50-10.00)
[2025-05-09 08:46] LABS: African American GFR (CKD) >90 (>60 ml/min/1.73 sqM); Anion Gap 2 mmol/L; Blood Urea Nitrogen 34 mg/dL (9-20); Calcium 8.6 mg/dL (8.4-10.2); Carbon Dioxide 36 mmol/L (22-30); Chloride 99 mmol/L (98-107); Glucose 231 mg/dL (74-99); Non-African American GFR(CKD) >90 (>60 ml/min/1.73 sqM); Potassium 4.3 mmol/L (3.5-5.1); Sodium 137 mmol/L (137-145)
[2025-05-09] MEDS: FUROSEMIDE 10 MG/ML 4 ML VIAL IV SCH (09:08)
--- NOTE | 2025-05-09 09:57 | P.PN ---
Subjective Progress Note Date: 05/09/25 Principal diagnosis: Respiratory failure Patient sitting up in the chair. On trach collar. Appears comfortable. Denies pain. Following commands. Tolerating tube feeds at goal. Objective - Vital Signs Vital signs: Vital Signs Temp 98.1 F 05/09/25 00:00 Pulse 77 05/09/25 09:40 Resp 16 05/09/25 04:00 BP 117/72 05/09/25 04:00 Pulse Ox 92 L 05/09/25 09:20 FiO2 60 05/09/25 09:20 Intake & Output 05/08/25 05/09/25 05/09/25 18:59 06:59 18:59 Intake Total 1300 990 310 Output Total 690 900 200 Balance 610 90 110 Intake: IV 520 150 130 Cefepime 2 gm In Sodium 200 100 100 Chloride 0.9% 100 ml @ 25 mls/hr IVPB Q8H JÚNIOR Rx#: [id number] Dextrose 5% in Water 1, 200 000 ml @ 100 mls/hr IV . Q10H JÚNIOR Rx#:[id number] Sodium Chloride 0.9% 1, 120 50 30 000 ml @ 10 mls/hr IV . Q24H JÚNIOR Rx#:[id number] Tube Feeding 720 720 180 Other 60 120 Output: Urine 690 900 200 Other: Voiding Method Indwelling Catheter Indwelling Catheter Indwelling Catheter # Bowel Movements 1 1 ABP, PAP, CO, CI - Last Documented Arterial Blood Pressure 147/60 - Exam Tracheostomy and PEG tube incisions clean and dry, no erythema, no appreciable drainage - Labs CBC & Chem 7: 05/09/25 08:16 05/09/25 08:16 Labs: Abnormal Lab Results - Last 24 Hours (Table) 05/08/25 05/08/25 05/09/25 Range/Units 11:33 17:27 00:20 WBC (4.50-10.00) 10*3/uL RBC (4.40-5.60) 10*6/uL Hgb (13.0-17.0) g/dL Hct (39.6-50.0) % Carbon Dioxide (22-30) mmol/L BUN (9-20) mg/dL Creatinine (0.66-1.25) mg/dL Glucose (74-99) mg/dL POC Glucose (mg/dL) 164 H 133 H 228 H (70-110) mg/dL 05/09/25 05/09/25 05/09/25 Range/Units 06:28 08:16 08:16 WBC 27.49 H (4.50-10.00) 10*3/uL RBC 3.57 L (4.40-5.60) 10*6/uL Hgb 10.2 L (13.0-17.0) g/dL Hct 31.5 L (39.6-50.0) % Carbon Dioxide 36 H (22-30) mmol/L BUN 34 H (9-20) mg/dL Creatinine 0.54 L (0.66-1.25) mg/dL Glucose 231 H (74-99) mg/dL POC Glucose (mg/dL) 234 H (70-110) mg/dL Assessment and Plan (1) Respiratory failure Narrative/Plan: Patient doing well at this time. Continue trach collar for now. Continue feeding at goal. Continue physical therapy. Current Visit: Yes Status: Acute Code(s): J96.90 - RESPIRATORY FAILURE, UNSP, UNSP W HYPOXIA OR HYPERCAPNIA SNOMED Code(s): 435414730
--- NOTE | 2025-05-09 10:09 | P.PN ---
Subjective Progress Note Date: 05/09/25 Principal diagnosis: Cardiac arrest A 64-year-old male patient presented to the emergency department with acute respiratory failure. The patient was unresponsive and in respiratory arrest. CPR was immediately initiated. The patient was given a round of epinephrine and CPR and the patient was intubated in the emergency department. He had return of spontaneous circulation. I reviewed the initial EKG post resuscitation and the patient was in normal sinus rhythm with a right bundle branch block pattern. The initial rhythm at the time of his cardiac arrest is not known. Nevertheless, I suspect that the patient had an acute hypoxic/hypercapnic respiratory failure as the patient postintubation was actively bronchospastic and wheezy. I saw the patient immediately post intubation and the patient had very limited air entry bilaterally, active bronchospastic and wheezy and while being on the mechanical ventilator, the patient's peak airway pressure was 50 and the blood gas showed a pH of 7.0 with a PCO2 more than 98 and a pO2 of 232 and this was done at that appointment for 50, rate of 20, FiO2 100% with a PEEP of 5. The chest x-ray was reviewed and it showed a small left-sided pleural effusion. The patient underwent a CT of the chest and a CAT scan of the ab domen. CT of the chest showed no evidence of any pulmonary embolism and the patient had no filling defects. No mediastinal lymphadenopathy or any other acute cardiopulmonary abnormalities. Lungs were essentially clear. CAT scan of the abdomen and pelvis showed left flank hematoma present since 04/22/2025 and this occurred following a TAVR procedure. The patient had a low-density lesion along the left lateral hemipelvis with some mild stranding measuring 7.7 x 4.5 x 13.4 cm in size, likely presenting an intramuscular seroma without any free fluid in the pelvis. Findings were essentially similar compared to the earlier CAT scan on 04/22/2025. No other abnormalities noted. CAT scan of the brain showed no acute intracranial abnormalities. Blood work showed a white cell count of 18.4 with a hemoglobin 9.5 and a platelet count of 516. Normal coagulation profile. K levels of 5.6, bicarb is at 33 with a BUN of 21 and creatinine 0.8. Lactic acid level was at 3.1. Troponins were 0.1 and 0.1 respectively x 2 with a proBNP level of 1000. BUN is 21 with a creatinine of 0.8 and UA was also noted with 4 WBCs. Based on his ongoing hypoxic respiratory failure, high airway pressures and severe bronchospasm wheezing, the patient was started on DuoNeb nebulizer treatments [id number], IV Solu-Medrol and patient was kept on propofol and the patient was also started on paralytics with Nimbex. IV fluids are currently running at the rate of 100 cc of normal saline and the patient is also on low- dose norepinephrine for hemodynamic support. 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 04/28/2025, the patient is being seen for a follow-up. The patient remains intubated on a mechanical ventilator. This morning, the patient sedated with propofol running at 50 mcg/kg/min and Nimbex at 1 mcg/kg/min. Is adequately sedated and paralyzed. He remains on mechanical ventilator, assist-control mode at rate of 30, tidal volume of 400, FiO2 50% with a PEEP of 5. Peak airway pressure is 33. The blood gas showed a pH of 7.24 with a PCO2 of 76 and PO2 of 82. Chest x-ray shows no acute abnormalities. Orotracheal tube was pushed in and it seems to be in satisfactory position. He has some interstitial opacities bilaterally along with background COPD. NG tube is not clearly seen. The patient is on normal saline at rate of 100 cc an hour. Urine output is in order of 40 cc an hour. Fluid balance is +712 cc over the past 24 hours. He is on low-dose norepinephrine running at 0.01 mcg/kg/min. The patient has been COPD and the patient is oxygen dependent and steroid-dependent outpatient basis the patient has been taking 50 mg of prednisone on an outpatient basis. WBC count is at 19 with a hemoglobin 10.2 and a platelet count of 410. Sodium is at 136, potassium is at 5.2, bicarb is at 34, BUN is 40 with a creatinine of 1.1. LFTs are abnormal with an AST of 1110 [place] [address] and a normal alkaline phosphatase. Blood sugar slightly elevated due to steroid use and the patient is on insulin sliding scale coverage. The patient is also on empiric antibiotic coverage with IV Zosyn. The left flank and abdominal hematoma remains unchanged. On 04/29/2025, the patient remains intubated on the mechanical ventilator. The patient is on propofol running at 50 mcg/kg/min and the patient is on Nimbex running at 2 mcg/kg/min. The patient is adequately sedated and paralyzed. This morning, he is on assist-control mode at rate of 30, tidal volume of 400, FiO2 50% with a PEEP of 5. The blood gas showed a pH of 7.28 with a PCO2 of 75 and PO2 of 96. The peak airway pressure is 34. Chest x-ray shows no acute abnormalities. Her procalcitonin level was at 0.97. The patient remains on vi heena high-protein at rate of 40 cc an hour. Fluid balance is +1.1 L over the past 24 hours and the patient is on normal Saint rate of 50 cc an hour. Echocardiogram showed ejection fraction of 65%, dilatation of the RV and the pulmonary artery pressure of around 55. The white cell count of 16.6 with a hemoglobin 9.8 and a platelet count of 395. Sodium is at 135, potassium is at 5.1, bicarbonate 37, BUN 60 with a creatinine of 1.08. AST is 412. ALT is at 1091. Total protein is at 5.7 with an albumin of 3.3. Remains on DuoNeb neb treatment [id number]. Remains on a combination of Perforomist and Pulmicort neb treatments twice a day and IV Solu-Medrol 60 mg every 6 hours. Remains on empiric antibiotic coverage with IV Rocephin. Remains on IV Solu- Medrol. Patient is off pressors for now. CAT scan of the abdomen and pelvis that was done at time of admission showed no significant intra-abdominal abnormalities. Left flank hematoma was essentially unchanged. The patient continues to have a stable hemoglobin and there is no significant drop in hemoglobin over the past 24 hours. He is post TAVR. He has an underlying rhythm that is sinus and the patient has a bundle branch block pattern. On 04/30/2025, the patient is being seen for a follow-up. Remains intubated on mechanical ventilator. The patient remains on propofol which is running at 50 mcg/kg/min and the patient is currently off paralytics. The morning blood gases showed a pH of 7.32 with a PCO2 of 80 and PO2 of 77. This was done on assist- control mode with a rate of 70, tidal volume of 400, FiO2 50% and PEEP of 5. Chest x-ray shows no acute pulmonary infiltrates. A drop in the respiratory rate was down to 20 and FiO2 was dropped down to 40%. Subsequent blood gas showed a pH of 7.23 with a PCO2 of 94 and PO2 of 101. The patient was riding the mechanical ventilator and the patient is deeply sedated. Will gradually wean down his propofol. Meanwhile, morning blood draw showed a elevated potassi um level and the patient had hyperkalemia. Potassium was at 6. The patient was given calcium gluconate, 10 units of insulin and Lokelma 10 mg. Subsequent potassium level improved. The the white cell count is at 19.3 with a hemoglobin 9.4 and a platelet count of 338. The sodium is at 139, most recent potassium level is down to 5.7, the serum bicarb is at 40, chloride is 96. The peak airway pressure is around 35. The patient is on vital high-protein at rate of 55 cc an hour. The patient is also on Lantus insulin for blood sugar control and the patient receiving Lantus 25 units and NovoLog 8 units 3 times daily and a sliding scale coverage. Remains on bronchodilators. Remains on steroids. Remains on Perforomist and Pulmicort nebulized treatments. Remains on empiric antibiotic coverage with IV Rocephin. Sputum sample is positive for Proteus mirabilis and haemophilus. On today's evaluation of 05/01/2025, the patient is being seen for a follow-up. The patient is off paralytics and the patient is currently on propofol running at 35 mcg/kg/min. The patient currently is on a mechanical ventilator assist- control mode at rate of 30, tidal volume of 400, FiO2 of 50% with a PEEP of 5. Patient has a pH of 7.33 with a PCO2 of 79 and PO2 of 80. Sputum positive for Proteus and haemophilus and the patient remains on IV Rocephin. Chest x-ray shows no evidence of pneumonia. Peak airway pressure is around 34. IV fluids are KVO. Fluid balance is -1.1 L. Cardiac rhythm is sinus. No pressors. The patient remains on vital protein at rate of 55 cc an hour. Remains on broncho dilators. Remains on IV Solu-Medrol. Remains on Lantus insulin 25 units along with NovoLog sliding scale coverage. Last flank and abdominal hematoma is unchanged extending to the scrotum. No significant swelling. No drop in the hemoglobin. The blood work from today shows a WBC count of 19.7, hemoglobin 9.2 and platelet count of 307. Serum bicarbonate is 43, sodium is 145, potassium is at 5.3, chloride is 99. 05/02/2025, the patient remains intubated on mechanical ventilator. The patient remains on propofol running at 25 mcg/kg/min. Chest x-ray shows pulm interstitial infiltrates bilaterally. The patient's sputum sample was positive for Proteus and haemophilus influenza. The patient was treated with IV Rocephin. Nevertheless, this morning, the patient noted to be febrile and vani led the fever workup will be done. Will repeat a sputum analysis. Will check a blood cultures. Antibiotics will be modified and the patient will be taken off Rocephin and started on IV cefepime. Patient will be also started on vancomycin pending further cultures. He is on assist-control mode of mechanical ventilation at rate of 30, tidal volume 400, FiO2 50% with a PEEP of 5. pH is at 7.35 with a PCO2 of 78 and PO2 of 86. Peak airway pressure is around 30. Fluid balance is -1.1 L over the past 24 hours. The patient remains on vital high-protein at rate of 71 cc an hour. Lantus for blood sugar control 30 units and the cardiac rhythm is sinus. IV fluids are currently at KVO. Rest of the blood work shows a white cell count of 16, hemoglobin 9.3 and a platelet count of 286. Sodium levels at 151, potassium level is at 5, bicarb is at 45, BUN 50 and creatinine is at 1.03. Blood sugars are 244. LFTs are improving with a drop in the AST and ALT level. COVID-19 testing has been negative. Procalcitonin level is at 0.97. On 05/03/2025, the patient is being seen for a follow-up. The patient remains intubated on a mechanical ventilator. This will be a extremely difficult wean as the patient advanced COPD. The patient remains on propofol at the rate of 35 mcg/kg/min. The sedation holiday was given failed as the patient became tachypneic, hypoxic, tachycardic and he went into cardiac arrhythmias in the form of SVT. Subsequently, the patient was placed back on sedation the patient remains on propofol. The patient remains on assist-control mode at rate of 30, tidal volume of 400, FiO2 50% with a PEEP of 5. Blood gas from today shows a pH of 7.38 with a PCO2 of 70 and PO2 of 60. Chest x-ray findings are essentially unchanged. The patient remains on IV antibiotics as the patient has grown haemophilus and Proteus in the sputum and the patient currently is on IV cefepime. He is also on vancomycin as an empiric antibiotic coverage. Awaiting follow-up sputum samples. Fluid balance is -930 cc over the past 24 hours. The patient is on vital high-protein at rate of 71 cc an hour. Lantus insulin at 30 units/day along with NovoLog 10 units with meal and sliding scale coverage. No pressors for now. Continues to have short runs of a flutter/SVT. Current c ardiac rhythm is sinus. Sodium levels at 155, potassium levels of 4.9, BUN 51 with a creatinine of 0.8. WBC count of 13.2, hemoglobin 9.7 and platelet count is at 275. IV fluids are currently at KVO. Seen today on 05/04/2025, patient remains in the ICU intubated and mechanically ventilated, on assist-control rate of 30 tidal volume 450 FiO2 50% and PEEP of 5 ABG showed a pO2 of 109 pCO2 68 pH of 7.38. Patient remains on D5W at 100 cc/h propofol 35 mcg/kg/min vital HP at 71 cc/h. Patient is also to receive free water 200 mL 4 times daily via orogastric tube. Patient apparently failed wean ing x 2 and he is not ready to be weaned mostly because of his mental status. Today I discussed his condition with the discussed the option of tracheostomy and PEG tube placement discussed the option of comfort care measures. The seems to be very inclined to proceed with tracheostomy and PEG tube placement and continue to try to wean after tracheostomy and PEG tube placement. Patient may actually require even placement after tracheostomy and PEG tube placement depending on his overall clinical status at the time. For now patient will be given trials of weaning from propofol as tolerated, and would like to assess mental status off sedation. And that seems to be difficult to do. Dr. Mchugh already saw the patient for possible tracheostomy and PEG tube placement, and will proceed to do so. Chest x-ray today showed small scattered reticular opacities unchanged, endotracheal tube seems to be high above the yakelin that needs to be advanced patient has a nasogastric tube in place. And he has a left internal jugular central line. Patient was seen today on 05/05/2025, remains intubated and mechanically ventilated. He is on assist-control rate of 30 tidal volume 450 FiO2 45%, PEEP of 5. ABG showed a pO2 of 84 pCO2 65 pH of 7.41, patient is arousable, follows simple instructions but he is profoundly weak. Family is at bedside, and we discussed the option of tracheostomy versus comfort care, would like to proceed with tracheostomy and PEG tube placement, and we will let general surgery aware of this. His WBC count is 16.4 hemoglobin 9.4 electrolytes are normal potassium is a bit high at 5.5, BUN is 50 creatinine 0.67. His sputum was positive for Proteus and for haemophilus. Patient remains on cefepime. Chest x-ray showed small scattered reticular opacities, basically unchanged. Patient was seen today on 05/06/2025, he underwent uneventful tracheostomy and PEG tube placement yesterday. Remains intubated mechanically ventilated, he is on assist-control rate of 30 tidal volume 450 FiO2 45% and PEEP of 5 ABG showed a pO2 of 68 pCO2 55 pH of 7.46. Patient is still on vital HP at 20 cc/h D5W at 100 cc/h, WBC count is 22.3 hemoglobin is 9.5 electrolytes showed sodium down to 147 bicarb is 39 BUN 41 creatinine 0.63. Chest x-ray showed relatively stable findings, no evidence of effusion no evidence of consolidation, no infiltrates. Tracheostomy in proper position and lines are in proper position. Patient was seen today on 05/07/2025, remains in ICU intubated mechanically ventilated, patient is on assist-control rate of 30 tidal volume 450 FiO2 45% and PEEP of 5 patient is awake, follows simple instructions, hence I recommended a trial of pressure support of 12 and CPAP today and keep him on this mode of mechanical ventilation as tolerated. He is on D5W at 100 cc/h, patient is on vital HP at 50 cc/h. ABG showed a pO2 of 66 pCO2 54 pH of 7.47. Chest x-ray showed bibasilar atelectasis, possible infiltrates. Tracheostomy seems to be in tact. Lines are in proper position. WBC count is 27 hemoglobin 9.3 platelets are 150, basic metabolic profile is normal bicarb is 37 BUN is 37 creatinine 0.45 Patient was seen today on 05/08/2025, patient remains in the ICU, intubated and mechanically ventilated, patient tolerated quite well a trial of pressure support of 12 and CPAP yesterday, however at night he was placed back on AC mode of mechanical ventilation. This morning the patient is on pressure support and CPAP again, he is on pressure support of 14/5, and I had him briefly on a pressure support of 8/5, patient was moving good tidal volume and did not seem to be in distress, then I recommended we proceed to trach collar. He will have trach collar at 45%. Remains on IV fluid at KVO remains on vital HP at 60 cc/h remains on cefepime for Proteus and H. influenzae noted in the sputum. Chest x- ray is showing improvement in his overall opacities. Hence I am recommending a trial of weaning today to trach collar. Labs today showed persistently elevated WBC count of 28.9 hemoglobin 9.4 electrolytes are normal bicarb is 37 BUN is 34 creatinine 0.49. Seen today on 05/09/2025, patient remains in the ICU, he was placed on trach collar yesterday, continues to tolerate trach collar at 60%. Patient remains on vital HP via PEG tube at 60 mL/h, he is sitting at the bedside chair, he is not requiring any pressors. Urine output is decent about 50 cc/h, however his chest x-ray is showing some mild interstitial edema and I am recommending Lasix 40 mg IV push every 12 hours. Patient is quite edematous on physical examination. Continues to have leukocytosis with WBC count of 27.4 hemoglobin 10.2 electrolytes are normal bicarb is 36 BUN is 34 creatinine 0.54 Objective - Vital Signs Vital signs: Vital Signs Temp 98.1 F 05/09/25 00:00 Pulse 77 05/09/25 09:40 Resp 16 05/09/25 04:00 BP 117/72 05/09/25 04:00 Pulse Ox 92 L 05/09/25 09:20 FiO2 60 05/09/25 09:20 Intake & Output 05/08/25 05/09/25 05/09/25 18:59 06:59 18:59 Intake Total 1300 990 380 Output Total 690 900 700 Balance 610 90 -320 Intake: IV 520 150 140 Cefepime 2 gm In Sodium 200 100 100 Chloride 0.9% 100 ml @ 25 mls/hr IVPB Q8H JÚNIOR Rx#: [id number] Dextrose 5% in Water 1, 200 000 ml @ 100 mls/hr IV . Q10H JÚNIOR Rx#:[id number] Sodium Chloride 0.9% 1, 120 50 40 000 ml @ 10 mls/hr IV . Q24H JÚNIOR Rx#:[id number] Tube Feeding 720 720 240 Other 60 120 Output: Urine 690 900 700 Other: Voiding Method Indwelling Catheter Indwelling Catheter Indwelling Catheter # Bowel Movements 1 1 ABP, PAP, CO, CI - Last Documented Arterial Blood Pressure 147/60 - Exam General: Reveals 64-year-old white male off mechanical ventilation and trach collar FiO2 is being titrated accordingly. Derm: warm, dry, no rashes. Head: atraumatic, normocephalic, symmetric tracheostomy is intact Eyes: PERRLA, EOMI, nonicteric. Mouth: Moist mucous membranes no mucous membrane lesions, tracheostomy is intact. Abdomen: Soft nontender no megaly no rebound, PEG tube is noted, intact Cardiovascular: Distant S1-S2, no S3 gallop, no murmur Lungs: Diminished breath sounds at the bases no crackles or wheezes Ext: no gross muscle atrophy, 2+ bipedal edema Neuro: Alert and oriented x 3 no focal deficit Psych: Normal mood and affect normal mental status examination - Labs CBC & Chem 7: 05/09/25 08:16 05/09/25 08:16 Labs: Abnormal Lab Results - Last 24 Hours (Table) 05/08/25 05/08/25 05/09/25 Range/Units 11:33 17:27 00:20 WBC (4.50-10.00) 10*3/uL RBC (4.40-5.60) 10*6/uL Hgb (13.0-17.0) g/dL Hct (39.6-50.0) % Carbon Dioxide (22-30) mmol/L BUN (9-20) mg/dL Creatinine (0.66-1.25) mg/dL Glucose (74-99) mg/dL POC Glucose (mg/dL) 164 H 133 H 228 H (70-110) mg/dL 05/09/25 05/09/25 05/09/25 Range/Units 06:28 08:16 08:16 WBC 27.49 H (4.50-10.00) 10*3/uL RBC 3.57 L (4.40-5.60) 10*6/uL Hgb 10.2 L (13.0-17.0) g/dL Hct 31.5 L (39.6-50.0) % Carbon Dioxide 36 H (22-30) mmol/L BUN 34 H (9-20) mg/dL Creatinine 0.54 L (0.66-1.25) mg/dL Glucose 231 H (74-99) mg/dL POC Glucose (mg/dL) 234 H (70-110) mg/dL Assessment and Plan Assessment: Impression: Cardiac arrest requiring intubation mechanical ventilation patient had brief resuscitation in the emergency room he received a round of epinephrine and a round of CPR. Acute hypoxic and hypercapnic respiratory failure secondary to cardiac arrest and COPD exacerbation Acute exacerbation of COPD Pneumonia secondary to haemophilus influenza and Proteus as noted on sputum cultures, remains on cefepime Left flank hematoma status post TAVR Advanced COPD and chronic hypoxic respiratory failure Obstructive sleep apnea syndrome on CPAP on outpatient basis Severe aortic stenosis and previous TAVR on 04/15/2025 Peripheral artery disease with history of left femoral artery occlusion Benign essential hypertension Type 2 diabetes Acute transaminitis, improving Hyperkalemia, being addressed accordingly patient to receive Lokelma today. Hyperchloremic hypernatremia, being addressed. Improving Status post tracheostomy and PEG tube placement on 05/05/2025 Recommendation: Continue to monitor the patient in the ICU, he has been tolerating trach collar is off mechanical ventilation. Titrate FiO2 accordingly maintaining O2 sat above 90% Continue bronchodilators Continue antibiotics/cefepime Lasix 40 mg IV push twice daily Continue nutritional support,/enteral feeding via PEG tube Continue GI and DVT prophylaxis Continue Lantus insulin and sliding scale coverage Patient remains relatively ill but improved, and I will keep in the ICU for the next 24 hours. Time with Patient: Less than 30
[2025-05-09 11:37] LABS: Glucose,Whole Blood 181 mg/dL (70-110)
--- NOTE | 2025-05-09 11:48 | P.PN ---
Subjective Progress Note Date: 05/09/25 \Hospital Course: 64 year old M with PMH of COPD on 2L home O2, DM, HTN, GERD, HLD presents to the ED for SOB. History is obtained from his at bedside. Patient recently underwent TAVR on 04/15. Surgery was complicated with left flank hematoma. He had been doing well since his surgery. Over the past day, he reported increased shortness of breath not relieved with nebulized treatments. This prompted him to come to the ED. In the ED, he was noted to have agonal breathing and subsequently lost his pulse. [facility] was called. He underwent high quality chest compressions, received 1 round of Epinephrine and intubated by Dr. Glass. ROSC was achieved. EKG showed sinus tachycardia with RBBB,CT brain no acute process,CXR small L pleural effusion,CTA chest no PE,CT AP showed stable left flank matoma Patient was admitted to ICU for further workup and management. Initially started on Zosyn IV for treatment on PNA. Procal 0.97. He was on Levophed for a short period of time initially. Sputum Cx grew Proteus and H. influenzae. Zosyn switched to Rocephin on 04/29. He started to spike fevers as high as 102.2F on 05/01, he was re-cultured and antibiotics was switched to Vancomycin and Cefepime. Elevated Troponin of 0.107, 0.14, 0.214 with EKG showing sinus tachycardia and RBBB. Echo showed EF 65-70% with severe pulmonary hypertension. Cardiology recommending no further workup. CT surgery consulted as well given recent TAVR on 04/15, recommending no surgical intervention. He has been difficult to wean off the ventilator. patient underwent tracheostomy and PEG tube placement on 05/05, 05/09 Seen and examined while sitting in the recliner, on trach collar, tolerating well, patient interacts, moves all extremities on command, no abdominal pain, discussed with [employer], plan to continue trach collar,Patient is afebrile, blood pressure continues to be stable. Blood work showed mild decrease in WBC 27.4, stable hemoglobin 10.2, sodium and potassium WNL, creatinine 0.5. Chest x-ray with similar scattered interstitial prominence and bilateral airspace opacities. Vitals Signs Reviewed. General: [Ill-appearing, on trach collar Derm: [warm], [dry] Head: [atraumatic], [normocephalic], [symmetric] tracheostomy in place Eyes: [EOMI], [no lid lag], [anicteric sclera] Mouth: [no lip lesion], [mucus membranes moist], ETT in place Cardiovascular: [S1S2 reg], [no murmur] Lungs: [Bilateral breath sounds , rhonchi present bilaterally Abdominal: [soft], [ nontender to palpation], [no guarding], [no appreciable organomegaly], PEG tube in place Ext: [no gross muscle atrophy bilateral upper extremity edema, lower extremity edema [no contractures] Neuro: [No signs of cranial nerve damage, moves all extremities Psych: [Awake, alert, tries to communicate, Assessment and Plan: Cardiac arrest status post ROSC, likely due to COPD exacerbation Acute hypoxic hypercapnic respiratory failure due to COPD exacerbation, cardiac arrest requiring mechanical ventilation s/p tracheostomy placement 05/05/2025 Haemophilus influenza and Proteus pneumonia plan -Continue , cefepime 2 g IV 3 times daily SOT 05/02, daily BMP and CBC -MRSA negative, blood cultures negative, will continue with cefepime due to ongoing leukocytosis -Continue Tylenol 650 mg p.o. every 6 hours as needed for fever -ulmicort 1mg INH BID. Performist 20 mcg INH BID. Solumedrol 60 mg IV Q6H. Pulmonary on board. Cardiology and CT surgery recommend no further workup. -Continue aspirin 81 mg daily, simvastatin 80 mg p.o. 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 Monitor and trend. Hyperbilirubinemia with Transaminitis: Likely due to hypotension. Improving. Trend. DVT ppx: Lovenox Code status full code Anticipated discharge place: LTAC Anticipated discharge time: TBD Objective - Vital Signs Vital signs: Vital Signs Temp 98.1 F 05/09/25 00:00 Pulse 77 05/09/25 09:40 Resp 22 05/09/25 06:00 BP 123/70 05/09/25 06:00 Pulse Ox 92 L 05/09/25 09:20 FiO2 60 05/09/25 09:20 Intake & Output 05/08/25 05/09/25 05/09/25 18:59 06:59 18:59 Intake Total 1300 990 450 Output Total 678 202 1064 Balance 610 90 -850 Intake: IV 520 150 150 Cefepime 2 gm In Sodium 200 100 100 Chloride 0.9% 100 ml @ 25 mls/hr IVPB Q8H [facility] Rx#: [id number] Dextrose 5% in Water 1, 200 000 ml @ 100 mls/hr IV . Q10H [facility] Rx#:[id number] Sodium Chloride 0.9% 1, 120 50 50 000 ml @ 10 mls/hr IV . Q24H J[facility] Rx#:[id number] Tube Feeding 720 720 300 Other 60 120 Output: Urine 040 011 7832 Other: Voiding Method Indwelling Catheter Indwelling Catheter Indwelling Catheter # Bowel Movements 1 1 ABP, PAP, CO, CI - Last Documented Arterial Blood Pressure 147/60 - Labs CBC & Chem 7: 05/09/25 08:16 05/09/25 08:16 Labs: Abnormal Lab Results - Last 24 Hours (Table) 05/08/25 05/09/25 05/09/25 Range/Units 17:27 00:20 06:28 WBC (4.50-10.00) 10*3/uL RBC (4.40-5.60) 10*6/uL Hgb (13.0-17.0) g/dL Hct (39.6-50.0) % Carbon Dioxide (22-30) mmol/L BUN (9-20) mg/dL Creatinine (0.66-1.25) mg/dL Glucose (74-99) mg/dL POC Glucose (mg/dL) 133 H 228 H 234 H (70-110) mg/dL 05/09/25 05/09/25 05/09/25 Range/Units 08:16 08:16 11:34 WBC 27.49 H (4.50-10.00) 10*3/uL RBC 3.57 L (4.40-5.60) 10*6/uL Hgb 10.2 L (13.0-17.0) g/dL Hct 31.5 L (39.6-50.0) % Carbon Dioxide 36 H (22-30) mmol/L BUN 34 H (9-20) mg/dL Creatinine 0.54 L (0.66-1.25) mg/dL Glucose 231 H (74-99) mg/dL POC Glucose (mg/dL) 181 H (70-110) mg/dL
[2025-05-09] MEDS: methylPREDNISolone SOD SUCCI 40 MG/ML 1 ML VIAL IV SCH (15:19)
[2025-05-09 17:45] LABS: Glucose,Whole Blood 76 mg/dL (70-110)
[2025-05-09 19:33] LABS: Glucose,Whole Blood 75 mg/dL (70-110)
[2025-05-10 00:06] LABS: Glucose,Whole Blood 97 mg/dL (70-110)
[2025-05-10 03:34] LABS: HCT 30.7 % (39.6-50.0); HGB 9.8 g/dL (13.0-17.0); MCH 27.8 pg (27.0-32.0); MCHC 31.9 g/dL (32.0-37.0); MCV 87.0 fL (80.0-97.0); Platelet Count 232 10*3/uL (140-440); RBC 3.53 10*6/uL (4.40-5.60); RDW 14.8 % (11.5-14.5); WBC 26.15 10*3/uL (4.50-10.00)
[2025-05-10 03:44] LABS: African American GFR (CKD) >90 (>60 ml/min/1.73 sqM); Blood Urea Nitrogen 34 mg/dL (9-20); Calcium 8.5 mg/dL (8.4-10.2); Chloride 94 mmol/L (98-107); Glucose 100 mg/dL (74-99); Non-African American GFR(CKD) >90 (>60 ml/min/1.73 sqM); Potassium 3.9 mmol/L (3.5-5.1); Sodium 135 mmol/L (137-145)
[2025-05-10 03:50] LABS: Anion Gap 4 mmol/L; Carbon Dioxide 37 mmol/L (22-30)
[2025-05-10 05:43] LABS: Glucose,Whole Blood 145 mg/dL (70-110)
--- NOTE | 2025-05-10 07:11 | XR ---
EXAMINATION TYPE: XR chest 1V portable DATE OF EXAM: 05/10/2025 5:52 AM COMPARISON: Chest radiograph from one day prior. CLINICAL INDICATION: Male, 64 years old with history of Trach; [facility] TECHNIQUE: XR chest 1V portable Frontal view of the chest. FINDINGS: Lungs/Pleura: Low lung volumes. Scattered interstitial prominence with bibasilar airspace opacities. There is no evidence of pleural effusion, focal consolidation, or pneumothorax. Pulmonary vascularity: Unremarkable. Heart/mediastinum: Cardiomediastinal silhouette is unremarkable. Musculoskeletal: No acute osseous pathology. Other findings: None Lines/Tubes: Tracheostomy cannula tip projecting over the trachea. Left central venous catheter with distal tip at the cavoatrial junction. IMPRESSION: low lung volumes, otherwise similar Scattered interstitial prominence and basilar airspace opacities. [facility], , 05/10/2025 7:08 AM
[2025-05-10] MEDS ORDERED: Potassium Replacement Protocol 1 EACH MISC MISCELLANE PRN (08:28)
[2025-05-10] MEDS: POTASSIUM BICARBONATE/CIT AC 20 MEQ TABLET.EFF NG-TUBE SCH (09:00)
--- NOTE | 2025-05-10 10:19 | P.PN ---
Subjective Progress Note Date: 05/10/25 Principal diagnosis: Respiratory failure Patient on Airvo at this time. Tolerating that well. Denies pain. Tolerating tube feeds at goal. Objective - Vital Signs Vital signs: Vital Signs Temp 98.0 F 05/10/25 08:00 Pulse 79 05/10/25 09:00 Resp 17 05/10/25 09:00 BP 114/79 05/10/25 09:00 Pulse Ox 94 L 05/10/25 09:00 FiO2 60 05/10/25 08:16 Intake & Output 05/09/25 05/10/25 05/10/25 18:59 06:59 18:59 Intake Total 1070 960 310 Output Total 2070 1700 875 Balance -1000 -190 -565 Weight 99.9 kg Intake: IV 230 210 130 Cefepime 2 gm In Sodium 100 100 100 Chloride 0.9% 100 ml @ 25 mls/hr IVPB Q8H [facility] Rx#: [id number] Sodium Chloride 0.9% 1, 130 110 30 000 ml @ 10 mls/hr IV . Q24H [facility] Rx#:[id number] Tube Feeding 780 660 180 Other 60 90 Output: Urine 0 1700 875 Other: Voiding Method Indwelling Catheter Indwelling Catheter Indwelling Catheter # Bowel Movements 1 ABP, PAP, CO, CI - Last Documented Arterial Blood Pressure 147/60 - Exam Tracheostomy and PEG tube incisions clean and dry, no erythema, no appreciable drainage - Labs CBC & Chem 7: 05/10/25 03:19 05/10/25 03:19 Labs: Abnormal Lab Results - Last 24 Hours (Table) 05/09/25 05/10/25 05/10/25 Range/Units 11:34 03:19 03:19 WBC 26.15 H (4.50-10.00) 10*3/uL RBC 3.53 L (4.40-5.60) 10*6/uL Hgb 9.8 L (13.0-17.0) g/dL Hct 30.7 L (39.6-50.0) % MCHC 31.9 L (32.0-37.0) g/dL Sodium 135 L (137-145) mmol/L Chloride 94 L (98-107) mmol/L Carbon Dioxide 37 H (22-30) mmol/L BUN 34 H (9-20) mg/dL Creatinine 0.52 L (0.66-1.25) mg/dL Glucose 100 H (74-99) mg/dL POC Glucose (mg/dL) 181 H (70-110) mg/dL 05/10/25 Range/Units 05:41 WBC (4.50-10.00) 10*3/uL RBC (4.40-5.60) 10*6/uL Hgb (13.0-17.0) g/dL Hct (39.6-50.0) % MCHC (32.0-37.0) g/dL Sodium (137-145) mmol/L Chloride (98-107) mmol/L Carbon Dioxide (22-30) mmol/L BUN (9-20) mg/dL Creatinine (0.66-1.25) mg/dL Glucose (74-99) mg/dL POC Glucose (mg/dL) 145 H (70-110) mg/dL Assessment and Plan (1) Respiratory failure Narrative/Plan: Patient doing well after tracheostomy and PEG tube placement. Leukocytosis slightly improving. Continue to follow. Current Visit: Yes Status: Acute Code(s): J96.90 - RESPIRATORY FAILURE, UNSP, UNSP W HYPOXIA OR HYPERCAPNIA SNOMED Code(s): 273018867
--- NOTE | 2025-05-10 10:57 | P.PN ---
Subjective Progress Note Date: 05/10/25 Hospital Course: 64 year old M with PMH of COPD on 2L home O2, DM, HTN, GERD, HLD presents to the ED for SOB. History is obtained from his at bedside. Patient recently underwent TAVR on 04/15. Surgery was complicated with left flank hematoma. He had been doing well since his surgery. Over the past day, he reported increased shortness of breath not relieved with nebulized treatments. This prompted him to come to the ED. In the ED, he was noted to have agonal breathing and subsequently lost his pulse. [facility] was called. He underwent high quality chest compressions, received 1 round of Epinephrine and intubated by Dr. Glass. ROSC was achieved. EKG showed sinus tachycardia with RBBB,CT brain no acute process,CXR small L pleural effusion,CTA chest no PE,CT AP showed stable left flank matoma Patient was admitted to ICU for further workup and management. Initially started on Zosyn IV for treatment on PNA. Procal 0.97. He was on Levophed for a short period of time initially. Sputum Cx grew Proteus and H. influenzae. Zosyn switched to Rocephin on 04/29. He started to spike fevers as high as 102.2F on 05/01, he was re-cultured and antibiotics was switched to Vancomycin and Cefepime. Elevated Troponin of 0.107, 0.14, 0.214 with EKG showing sinus tachycardia and RBBB. Echo showed EF 65-70% with severe pulmonary hypertension. Cardiology recommending no further workup. CT surgery consulted as well given recent TAVR on 04/15, recommending no surgical intervention. He has been difficult to wean off the ventilator. patient underwent tracheostomy and PEG tube placement on 05/05, patient was transitioned to trach collar on 05/08, tolerating well, sitting in the recliner. 05/10: Seen and examined at bedside: No acute events overnight. Discussed with RN, patient's morning blood glucose was low, will adjust basal bolus regimen as well as SSI. Started on IV Lasix 40 twice daily., Solu-Medrol tapering down to 40 IV every 8 hours . He remains on trach collar, stable vital signs. His WBC started trending down to 26.15, hemoglobin stay stable 9.8, sodium 135, creatinine stable at 0.52. Eventually plan to discharge to LTAC. Patient was comfortably laying in the bed, watching TV, not in acute distress, feeling better. Vitals Signs Reviewed. General: [Not in acute distress, on trach collar Derm: Warm, dry Head: Atraumatic, normocephalic, symmetric tracheostomy in place Eyes: EOMI, no lid lag, anicteric sclera Mouth: No lip lesion, mucus membranes moist, tracheostomy in place, on Airvo Cardiovascular: S1S2 reg, no murmur Lungs: [Bilateral breath sounds present, no rhonchi, wheezes, crackles today Abdominal: Soft, nontender to palpation, no guarding, no appreciable organomegaly, PEG tube in place Ext: [no gross muscle atrophy bilateral upper extremity edema, lower extremity edema no contractures Neuro: [No signs of cranial nerve damage, moves all extremities Psych: [Awake, alert, tries to communicate, Assessment and Plan: Cardiac arrest status post ROSC, likely due to COPD exacerbation Acute hypoxic hypercapnic respiratory failure due to COPD exacerbation, cardiac arrest requiring mechanical ventilation s/p tracheostomy placement 05/05/2025 Haemophilus influenza and Proteus pneumonia plan -Continue , cefepime 2 g IV 3 times daily SOT 05/02, daily BMP and CBC -Started on IV Lasix 40 twice daily and Solu-Medrol was adjusted to 40 mg IV every 8 hours -MRSA negative, blood cultures negative, will continue with cefepime due to ongoing leukocytosis -Continue Tylenol 650 mg p.o. every 6 hours as needed for fever -ulmicort 1mg INH BID. Performist 20 mcg INH BID. Pulmonary on board. Cardiology and CT surgery recommend no further workup. -Continue aspirin 81 mg daily, simvastatin 80 mg p.o. 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 Monitor and trend. Stable Hb Hyperbilirubinemia with Transaminitis: improved. DVT ppx: Lovenox Code status full code Anticipated discharge place: LTAC Anticipated discharge time: TBD Objective - Vital Signs Vital signs: Vital Signs Temp 98.0 F 05/10/25 08:00 Pulse 82 05/10/25 10:00 Resp 17 05/10/25 10:00 BP 130/74 05/10/25 10:00 Pulse Ox 98 05/10/25 10:00 FiO2 60 05/10/25 08:16 Intake & Output 05/09/25 05/10/25 05/10/25 18:59 06:59 18:59 Intake Total 1070 960 380 Output Total 2069 1699 1974 Balance -4162 -806 -3815 Weight 99.9 kg Intake: IV 230 210 140 Cefepime 2 gm In Sodium 100 100 100 Chloride 0.9% 100 ml @ 25 mls/hr IVPB Q8H [facility] Rx#: [id number] Sodium Chloride 0.9% 1, 130 110 40 000 ml @ 10 mls/hr IV . Q24H [facility] Rx#:[id number] Tube Feeding 780 660 240 Other 60 90 Output: Urine 2069 1699 1974 Other: Voiding Method Indwelling Catheter Indwelling Catheter Indwelling Catheter # Bowel Movements 1 ABP, PAP, CO, CI - Last Documented Arterial Blood Pressure 147/60 - Labs CBC & Chem 7: 05/10/25 03:19 05/10/25 03:19 Labs: Abnormal Lab Results - Last 24 Hours (Table) 05/09/25 05/10/25 05/10/25 Range/Units 11:34 03:19 03:19 WBC 26.15 H (4.50-10.00) 10*3/uL RBC 3.53 L (4.40-5.60) 10*6/uL Hgb 9.8 L (13.0-17.0) g/dL Hct 30.7 L (39.6-50.0) % MCHC 31.9 L (32.0-37.0) g/dL Sodium 135 L (137-145) mmol/L Chloride 94 L (98-107) mmol/L Carbon Dioxide 37 H (22-30) mmol/L BUN 34 H (9-20) mg/dL Creatinine 0.52 L (0.66-1.25) mg/dL Glucose 100 H (74-99) mg/dL POC Glucose (mg/dL) 181 H (70-110) mg/dL 05/10/25 Range/Units 05:41 WBC (4.50-10.00) 10*3/uL RBC (4.40-5.60) 10*6/uL Hgb (13.0-17.0) g/dL Hct (39.6-50.0) % MCHC (32.0-37.0) g/dL Sodium (137-145) mmol/L Chloride (98-107) mmol/L Carbon Dioxide (22-30) mmol/L BUN (9-20) mg/dL Creatinine (0.66-1.25) mg/dL Glucose (74-99) mg/dL POC Glucose (mg/dL) 145 H (70-110) mg/dL
[2025-05-10 11:38] LABS: Glucose,Whole Blood 206 mg/dL (70-110)
--- NOTE | 2025-05-10 11:40 | P.PN ---
Subjective Progress Note Date: 05/10/25 Principal diagnosis: Cardiac arrest A 64-year-old male patient presented to the emergency department with acute respiratory failure. The patient was unresponsive and in respiratory arrest. CPR was immediately initiated. The patient was given a round of epinephrine and CPR and the patient was intubated in the emergency department. He had return of spontaneous circulation. I reviewed the initial EKG post resuscitation and the patient was in normal sinus rhythm with a right bundle branch block pattern. The initial rhythm at the time of his cardiac arrest is not known. Nevertheless, I suspect that the patient had an acute hypoxic/hypercapnic respiratory failure as the patient postintubation was actively bronchospastic and wheezy. I saw the patient immediately post intubation and the patient had very limited air entry bilaterally, active bronchospastic and wheezy and while being on the mechanical ventilator, the patient's peak airway pressure was 50 and the blood gas showed a pH of 7.0 with a PCO2 more than 98 and a pO2 of 232 and this was done at that appointment for 50, rate of 20, FiO2 100% with a PEEP of 5. The chest x-ray was reviewed and it showed a small left-sided pleural effusion. The patient underwent a CT of the chest and a CAT scan of the ab domen. CT of the chest showed no evidence of any pulmonary embolism and the patient had no filling defects. No mediastinal lymphadenopathy or any other acute cardiopulmonary abnormalities. Lungs were essentially clear. CAT scan of the abdomen and pelvis showed left flank hematoma present since 04/22/2025 and this occurred following a TAVR procedure. The patient had a low-density lesion along the left lateral hemipelvis with some mild stranding measuring 7.7 x 4.5 x 13.4 cm in size, likely presenting an intramuscular seroma without any free fluid in the pelvis. Findings were essentially similar compared to the earlier CAT scan on 04/22/2025. No other abnormalities noted. CAT scan of the brain showed no acute intracranial abnormalities. Blood work showed a white cell count of 18.4 with a hemoglobin 9.5 and a platelet count of 516. Normal coagulation profile. K levels of 5.6, bicarb is at 33 with a BUN of 21 and creatinine 0.8. Lactic acid level was at 3.1. Troponins were 0.1 and 0.1 respectively x 2 with a proBNP level of 1000. BUN is 21 with a creatinine of 0.8 and UA was also noted with 4 WBCs. Based on his ongoing hypoxic respiratory failure, high airway pressures and severe bronchospasm wheezing, the patient was started on DuoNeb nebulizer treatments [id number], IV Solu-Medrol and patient was kept on propofol and the patient was also started on paralytics with Nimbex. IV fluids are currently running at the rate of 100 cc of normal saline and the patient is also on low- dose norepinephrine for hemodynamic support. 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 04/28/2025, the patient is being seen for a follow-up. The patient remains intubated on a mechanical ventilator. This morning, the patient sedated with propofol running at 50 mcg/kg/min and Nimbex at 1 mcg/kg/min. Is adequately sedated and paralyzed. He remains on mechanical ventilator, assist-control mode at rate of 30, tidal volume of 400, FiO2 50% with a PEEP of 5. Peak airway pressure is 33. The blood gas showed a pH of 7.24 with a PCO2 of 76 and PO2 of 82. Chest x-ray shows no acute abnormalities. Orotracheal tube was pushed in and it seems to be in satisfactory position. He has some interstitial opacities bilaterally along with background COPD. NG tube is not clearly seen. The patient is on normal saline at rate of 100 cc an hour. Urine output is in order of 40 cc an hour. Fluid balance is +712 cc over the past 24 hours. He is on low-dose norepinephrine running at 0.01 mcg/kg/min. The patient has been COPD and the patient is oxygen dependent and steroid-dependent outpatient basis the patient has been taking 50 mg of prednisone on an outpatient basis. WBC count is at 19 with a hemoglobin 10.2 and a platelet count of 410. Sodium is at 136, potassium is at 5.2, bicarb is at 34, BUN is 40 with a creatinine of 1.1. LFTs are abnormal with an AST of 1110 [place] [address] and a normal alkaline phosphatase. Blood sugar slightly elevated due to steroid use and the patient is on insulin sliding scale coverage. The patient is also on empiric antibiotic coverage with IV Zosyn. The left flank and abdominal hematoma remains unchanged. On 04/29/2025, the patient remains intubated on the mechanical ventilator. The patient is on propofol running at 50 mcg/kg/min and the patient is on Nimbex running at 2 mcg/kg/min. The patient is adequately sedated and paralyzed. This morning, he is on assist-control mode at rate of 30, tidal volume of 400, FiO2 50% with a PEEP of 5. The blood gas showed a pH of 7.28 with a PCO2 of 75 and PO2 of 96. The peak airway pressure is 34. Chest x-ray shows no acute abnormalities. Her procalcitonin level was at 0.97. The patient remains on vi heena high-protein at rate of 40 cc an hour. Fluid balance is +1.1 L over the past 24 hours and the patient is on normal Saint rate of 50 cc an hour. Echocardiogram showed ejection fraction of 65%, dilatation of the RV and the pulmonary artery pressure of around 55. The white cell count of 16.6 with a hemoglobin 9.8 and a platelet count of 395. Sodium is at 135, potassium is at 5.1, bicarbonate 37, BUN 60 with a creatinine of 1.08. AST is 412. ALT is at 1091. Total protein is at 5.7 with an albumin of 3.3. Remains on DuoNeb neb treatment [id number]. Remains on a combination of Perforomist and Pulmicort neb treatments twice a day and IV Solu-Medrol 60 mg every 6 hours. Remains on empiric antibiotic coverage with IV Rocephin. Remains on IV Solu- Medrol. Patient is off pressors for now. CAT scan of the abdomen and pelvis that was done at time of admission showed no significant intra-abdominal abnormalities. Left flank hematoma was essentially unchanged. The patient continues to have a stable hemoglobin and there is no significant drop in hemoglobin over the past 24 hours. He is post TAVR. He has an underlying rhythm that is sinus and the patient has a bundle branch block pattern. On 04/30/2025, the patient is being seen for a follow-up. Remains intubated on mechanical ventilator. The patient remains on propofol which is running at 50 mcg/kg/min and the patient is currently off paralytics. The morning blood gases showed a pH of 7.32 with a PCO2 of 80 and PO2 of 77. This was done on assist- control mode with a rate of 70, tidal volume of 400, FiO2 50% and PEEP of 5. Chest x-ray shows no acute pulmonary infiltrates. A drop in the respiratory rate was down to 20 and FiO2 was dropped down to 40%. Subsequent blood gas showed a pH of 7.23 with a PCO2 of 94 and PO2 of 101. The patient was riding the mechanical ventilator and the patient is deeply sedated. Will gradually wean down his propofol. Meanwhile, morning blood draw showed a elevated potassi um level and the patient had hyperkalemia. Potassium was at 6. The patient was given calcium gluconate, 10 units of insulin and Lokelma 10 mg. Subsequent potassium level improved. The the white cell count is at 19.3 with a hemoglobin 9.4 and a platelet count of 338. The sodium is at 139, most recent potassium level is down to 5.7, the serum bicarb is at 40, chloride is 96. The peak airway pressure is around 35. The patient is on vital high-protein at rate of 55 cc an hour. The patient is also on Lantus insulin for blood sugar control and the patient receiving Lantus 25 units and NovoLog 8 units 3 times daily and a sliding scale coverage. Remains on bronchodilators. Remains on steroids. Remains on Perforomist and Pulmicort nebulized treatments. Remains on empiric antibiotic coverage with IV Rocephin. Sputum sample is positive for Proteus mirabilis and haemophilus. On today's evaluation of 05/01/2025, the patient is being seen for a follow-up. The patient is off paralytics and the patient is currently on propofol running at 35 mcg/kg/min. The patient currently is on a mechanical ventilator assist- control mode at rate of 30, tidal volume of 400, FiO2 of 50% with a PEEP of 5. Patient has a pH of 7.33 with a PCO2 of 79 and PO2 of 80. Sputum positive for Proteus and haemophilus and the patient remains on IV Rocephin. Chest x-ray shows no evidence of pneumonia. Peak airway pressure is around 34. IV fluids are KVO. Fluid balance is -1.1 L. Cardiac rhythm is sinus. No pressors. The patient remains on vital protein at rate of 55 cc an hour. Remains on broncho dilators. Remains on IV Solu-Medrol. Remains on Lantus insulin 25 units along with NovoLog sliding scale coverage. Last flank and abdominal hematoma is unchanged extending to the scrotum. No significant swelling. No drop in the hemoglobin. The blood work from today shows a WBC count of 19.7, hemoglobin 9.2 and platelet count of 307. Serum bicarbonate is 43, sodium is 145, potassium is at 5.3, chloride is 99. 05/02/2025, the patient remains intubated on mechanical ventilator. The patient remains on propofol running at 25 mcg/kg/min. Chest x-ray shows pulm interstitial infiltrates bilaterally. The patient's sputum sample was positive for Proteus and haemophilus influenza. The patient was treated with IV Rocephin. Nevertheless, this morning, the patient noted to be febrile and vani led the fever workup will be done. Will repeat a sputum analysis. Will check a blood cultures. Antibiotics will be modified and the patient will be taken off Rocephin and started on IV cefepime. Patient will be also started on vancomycin pending further cultures. He is on assist-control mode of mechanical ventilation at rate of 30, tidal volume 400, FiO2 50% with a PEEP of 5. pH is at 7.35 with a PCO2 of 78 and PO2 of 86. Peak airway pressure is around 30. Fluid balance is -1.1 L over the past 24 hours. The patient remains on vital high-protein at rate of 71 cc an hour. Lantus for blood sugar control 30 units and the cardiac rhythm is sinus. IV fluids are currently at KVO. Rest of the blood work shows a white cell count of 16, hemoglobin 9.3 and a platelet count of 286. Sodium levels at 151, potassium level is at 5, bicarb is at 45, BUN 50 and creatinine is at 1.03. Blood sugars are 244. LFTs are improving with a drop in the AST and ALT level. COVID-19 testing has been negative. Procalcitonin level is at 0.97. On 05/03/2025, the patient is being seen for a follow-up. The patient remains intubated on a mechanical ventilator. This will be a extremely difficult wean as the patient advanced COPD. The patient remains on propofol at the rate of 35 mcg/kg/min. The sedation holiday was given failed as the patient became tachypneic, hypoxic, tachycardic and he went into cardiac arrhythmias in the form of SVT. Subsequently, the patient was placed back on sedation the patient remains on propofol. The patient remains on assist-control mode at rate of 30, tidal volume of 400, FiO2 50% with a PEEP of 5. Blood gas from today shows a pH of 7.38 with a PCO2 of 70 and PO2 of 60. Chest x-ray findings are essentially unchanged. The patient remains on IV antibiotics as the patient has grown haemophilus and Proteus in the sputum and the patient currently is on IV cefepime. He is also on vancomycin as an empiric antibiotic coverage. Awaiting follow-up sputum samples. Fluid balance is -930 cc over the past 24 hours. The patient is on vital high-protein at rate of 71 cc an hour. Lantus insulin at 30 units/day along with NovoLog 10 units with meal and sliding scale coverage. No pressors for now. Continues to have short runs of a flutter/SVT. Current c ardiac rhythm is sinus. Sodium levels at 155, potassium levels of 4.9, BUN 51 with a creatinine of 0.8. WBC count of 13.2, hemoglobin 9.7 and platelet count is at 275. IV fluids are currently at KVO. Seen today on 05/04/2025, patient remains in the ICU intubated and mechanically ventilated, on assist-control rate of 30 tidal volume 450 FiO2 50% and PEEP of 5 ABG showed a pO2 of 109 pCO2 68 pH of 7.38. Patient remains on D5W at 100 cc/h propofol 35 mcg/kg/min vital HP at 71 cc/h. Patient is also to receive free water 200 mL 4 times daily via orogastric tube. Patient apparently failed wean ing x 2 and he is not ready to be weaned mostly because of his mental status. Today I discussed his condition with the discussed the option of tracheostomy and PEG tube placement discussed the option of comfort care measures. The seems to be very inclined to proceed with tracheostomy and PEG tube placement and continue to try to wean after tracheostomy and PEG tube placement. Patient may actually require even placement after tracheostomy and PEG tube placement depending on his overall clinical status at the time. For now patient will be given trials of weaning from propofol as tolerated, and would like to assess mental status off sedation. And that seems to be difficult to do. Dr. Mchugh already saw the patient for possible tracheostomy and PEG tube placement, and will proceed to do so. Chest x-ray today showed small scattered reticular opacities unchanged, endotracheal tube seems to be high above the yakelin that needs to be advanced patient has a nasogastric tube in place. And he has a left internal jugular central line. Patient was seen today on 05/05/2025, remains intubated and mechanically ventilated. He is on assist-control rate of 30 tidal volume 450 FiO2 45%, PEEP of 5. ABG showed a pO2 of 84 pCO2 65 pH of 7.41, patient is arousable, follows simple instructions but he is profoundly weak. Family is at bedside, and we discussed the option of tracheostomy versus comfort care, would like to proceed with tracheostomy and PEG tube placement, and we will let general surgery aware of this. His WBC count is 16.4 hemoglobin 9.4 electrolytes are normal potassium is a bit high at 5.5, BUN is 50 creatinine 0.67. His sputum was positive for Proteus and for haemophilus. Patient remains on cefepime. Chest x-ray showed small scattered reticular opacities, basically unchanged. Patient was seen today on 05/06/2025, he underwent uneventful tracheostomy and PEG tube placement yesterday. Remains intubated mechanically ventilated, he is on assist-control rate of 30 tidal volume 450 FiO2 45% and PEEP of 5 ABG showed a pO2 of 68 pCO2 55 pH of 7.46. Patient is still on vital HP at 20 cc/h D5W at 100 cc/h, WBC count is 22.3 hemoglobin is 9.5 electrolytes showed sodium down to 147 bicarb is 39 BUN 41 creatinine 0.63. Chest x-ray showed relatively stable findings, no evidence of effusion no evidence of consolidation, no infiltrates. Tracheostomy in proper position and lines are in proper position. Patient was seen today on 05/07/2025, remains in ICU intubated mechanically ventilated, patient is on assist-control rate of 30 tidal volume 450 FiO2 45% and PEEP of 5 patient is awake, follows simple instructions, hence I recommended a trial of pressure support of 12 and CPAP today and keep him on this mode of mechanical ventilation as tolerated. He is on D5W at 100 cc/h, patient is on vital HP at 50 cc/h. ABG showed a pO2 of 66 pCO2 54 pH of 7.47. Chest x-ray showed bibasilar atelectasis, possible infiltrates. Tracheostomy seems to be in tact. Lines are in proper position. WBC count is 27 hemoglobin 9.3 platelets are 150, basic metabolic profile is normal bicarb is 37 BUN is 37 creatinine 0.45 Patient was seen today on 05/08/2025, patient remains in the ICU, intubated and mechanically ventilated, patient tolerated quite well a trial of pressure support of 12 and CPAP yesterday, however at night he was placed back on AC mode of mechanical ventilation. This morning the patient is on pressure support and CPAP again, he is on pressure support of 14/5, and I had him briefly on a pressure support of 8/5, patient was moving good tidal volume and did not seem to be in distress, then I recommended we proceed to trach collar. He will have trach collar at 45%. Remains on IV fluid at KVO remains on vital HP at 60 cc/h remains on cefepime for Proteus and H. influenzae noted in the sputum. Chest x- ray is showing improvement in his overall opacities. Hence I am recommending a trial of weaning today to trach collar. Labs today showed persistently elevated WBC count of 28.9 hemoglobin 9.4 electrolytes are normal bicarb is 37 BUN is 34 creatinine 0.49. Seen today on 05/09/2025, patient remains in the ICU, he was placed on trach collar yesterday, continues to tolerate trach collar at 60%. Patient remains on vital HP via PEG tube at 60 mL/h, he is sitting at the bedside chair, he is not requiring any pressors. Urine output is decent about 50 cc/h, however his chest x-ray is showing some mild interstitial edema and I am recommending Lasix 40 mg IV push every 12 hours. Patient is quite edematous on physical examination. Continues to have leukocytosis with WBC count of 27.4 hemoglobin 10.2 electrolytes are normal bicarb is 36 BUN is 34 creatinine 0.54 Seen today on 05/10/2025, patient is tolerating trach collar quite well, remains on trach collar today, sitting at bedside chair, not in any distress. Considering the patient is having intermittent episodes of desaturation but he improved by changing trach collar to Airvo with FiO2 of 60% and flow of 60 L, patient to remain on Airvo connected to tracheostomy. And will titrate FiO2 accordingly. Nutrition vick the patient remains on vital HP at 60 mL/h he is al so on Lasix 40 mg IV push twice daily and he remains on cefepime. Sputum cultures have shown Proteus mirabilis and haemophilus influenza, chest x-ray today showed low lung volumes and basilar opacities specially at the left base. WBC count is improving down to 26.15 hemoglobin 9.8 electrolytes are normal bicarb is 37 BUN is 34 creatinine 0.52 Objective - Vital Signs Vital signs: Vital Signs Temp 98.0 F 05/10/25 08:00 Pulse 85 05/10/25 11:00 Resp 19 05/10/25 11:00 BP 106/76 05/10/25 11:00 Pulse Ox 96 05/10/25 11:00 FiO2 60 05/10/25 08:16 Intake & Output 05/09/25 05/10/25 05/10/25 18:59 06:59 18:59 Intake Total 1070 960 450 Output Total 2070 1700 2175 Balance -1000 -880 -1725 Weight 99.9 kg Intake: IV 230 210 150 Cefepime 2 gm In Sodium 100 100 100 Chloride 0.9% 100 ml @ 25 mls/hr IVPB Q8H JÚNIOR Rx#: [id number] Sodium Chloride 0.9% 1, 130 110 50 000 ml @ 10 mls/hr IV . Q24H JÚNIOR Rx#:[id number] Tube Feeding 780 660 300 Other 60 90 Output: Urine 2069 1700 2175 Other: Voiding Method Indwelling Catheter Indwelling Catheter Indwelling Catheter # Bowel Movements 1 ABP, PAP, CO, CI - Last Documented Arterial Blood Pressure 147/60 - Exam General: Reveals 64-year-old white male off mechanical ventilation on Airvo connected to tracheostomy tube. Derm: warm, dry, no rashes. Head: atraumatic, normocephalic, symmetric tracheostomy is intact Eyes: PERRLA, EOMI, nonicteric. Mouth: Moist mucous membranes no mucous membrane lesions, tracheostomy is intact. Abdomen: Soft nontender no megaly no rebound, PEG tube is noted, intact Cardiovascular: Distant S1-S2, no S3 gallop, no murmur Lungs: Diminished breath sounds at the bases no crackles or wheezes Ext: no gross muscle atrophy, 2+ bipedal edema Neuro: Alert and oriented x 3 no focal deficit Psych: Normal mood and affect normal mental status examination - Labs CBC & Chem 7: 05/10/25 03:19 05/10/25 03:19 Labs: Abnormal Lab Results - Last 24 Hours (Table) 05/09/25 05/10/25 05/10/25 Range/Units 11:34 03:19 03:19 WBC 26.15 H (4.50-10.00) 10*3/uL RBC 3.53 L (4.40-5.60) 10*6/uL Hgb 9.8 L (13.0-17.0) g/dL Hct 30.7 L (39.6-50.0) % MCHC 31.9 L (32.0-37.0) g/dL Sodium 135 L (137-145) mmol/L Chloride 94 L (98-107) mmol/L Carbon Dioxide 37 H (22-30) mmol/L BUN 34 H (9-20) mg/dL Creatinine 0.52 L (0.66-1.25) mg/dL Glucose 100 H (74-99) mg/dL POC Glucose (mg/dL) 181 H (70-110) mg/dL 05/10/25 Range/Units 05:41 WBC (4.50-10.00) 10*3/uL RBC (4.40-5.60) 10*6/uL Hgb (13.0-17.0) g/dL Hct (39.6-50.0) % MCHC (32.0-37.0) g/dL Sodium (137-145) mmol/L Chloride (98-107) mmol/L Carbon Dioxide (22-30) mmol/L BUN (9-20) mg/dL Creatinine (0.66-1.25) mg/dL Glucose (74-99) mg/dL POC Glucose (mg/dL) 145 H (70-110) mg/dL Assessment and Plan Assessment: Impression: Cardiac arrest requiring intubation mechanical ventilation patient had brief resuscitation in the emergency room he received a round of epinephrine and a round of CPR. Acute hypoxic and hypercapnic respiratory failure secondary to cardiac arrest and COPD exacerbation Acute exacerbation of COPD Pneumonia secondary to haemophilus influenza and Proteus as noted on sputum cultures, remains on cefepime Left flank hematoma status post TAVR Advanced COPD and chronic hypoxic respiratory failure Obstructive sleep apnea syndrome on CPAP on outpatient basis Severe aortic stenosis and previous TAVR on 04/15/2025 Peripheral artery disease with history of left femoral artery occlusion Benign essential hypertension Type 2 diabetes Acute transaminitis, improving Hyperkalemia, being addressed accordingly patient to receive Lokelma today. Hyperchloremic hypernatremia, being addressed. Improving Status post tracheostomy and PEG tube placement on 05/05/2025 Recommendation: Continue to monitor the patient in the ICU Continue tracheostomy/Airvo and titrate FiO2 and flow accordingly. Continue bronchodilators Continue antibiotics/cefepime Continue diuretics/Lasix Continue nutritional support,/enteral feeding via PEG tube, and vital HP at 60 cc/h Continue GI and DVT prophylaxis Continue Lantus insulin and sliding scale coverage Comes to x-ray the patient will need to have placement. And possibly some sort of rehab. Will continue to follow Time with Patient: Less than 30
[2025-05-10] MEDS: INSULIN LISPRO (HumaLOG) 100 UNIT/ML 10 mL VL SQ SCH (11:43)
[2025-05-10 16:50] LABS: Glucose,Whole Blood 197 mg/dL (70-110)
[2025-05-10 23:04] LABS: Glucose,Whole Blood 233 mg/dL (70-110)
[2025-05-10] MEDS: INSULIN GLARGINE (LANTUS) 100 UNIT/ML SYR SQ SCH (23:19)
[2025-05-11 05:13] LABS: Glucose,Whole Blood 206 mg/dL (70-110)
[2025-05-11 06:03] LABS: African American GFR (CKD) >90 (>60 ml/min/1.73 sqM); Blood Urea Nitrogen 37 mg/dL (9-20); Calcium 8.2 mg/dL (8.4-10.2); Chloride 90 mmol/L (98-107); Glucose 164 mg/dL (74-99); Non-African American GFR(CKD) >90 (>60 ml/min/1.73 sqM); Potassium 4.1 mmol/L (3.5-5.1); Sodium 134 mmol/L (137-145)
[2025-05-11 06:10] LABS: Anion Gap 5 mmol/L
[2025-05-11 06:11] LABS: Carbon Dioxide 39 mmol/L (22-30)
--- NOTE | 2025-05-11 06:29 | XR ---
EXAMINATION TYPE: XR chest 1V portable DATE OF EXAM: 05/11/2025 5:48 AM COMPARISON: Multiple radiographs, with the most recent on 05/10/2025 TECHNIQUE: XR chest 1V portable Portable AP radiograph of the chest. CLINICAL INDICATION:Male, 64 years old with history of follow up bibasilar infiltrates; FINDINGS: Lungs/Pleura: There is no evidence of pleural effusion, focal consolidation, or pneumothorax. Pulmonary vascularity: Unremarkable. Heart/mediastinum: Cardiomediastinal silhouette is unremarkable. Musculoskeletal: No acute osseous pathology. Other findings: None Lines/Tubes: Tracheostomy cannula overlying the trachea in appropriate position. Left subclavian approach central venous catheter with distal tip in the mid SVC. IMPRESSION: 1. No focal consolidation. 2. Stable support line and cannula. [facility], , 05/11/2025 6:27 AM
[2025-05-11 07:12] LABS: Basophils # (A) 0.02 10*3/uL (0.00-0.10); Basophils % (A) 0.1 %; Eosinophils # (A) 0.00 10*3/uL (0.04-0.35); Eosinophils % (A) 0.0 %; HCT 29.4 % (39.6-50.0); HGB 9.7 g/dL (13.0-17.0); Lymphocytes # (A) 0.44 10*3/uL (0.90-5.00); Lymphocytes % (A) 2.1 %; MCH 28.5 pg (27.0-32.0); MCHC 33.0 g/dL (32.0-37.0); MCV 86.5 fL (80.0-97.0); Monocytes # (A) 0.85 10*3/uL (0.20-1.00); Monocytes % (A) 4.1 %; Neutrophils # (A) 19.14 10*3/uL (1.80-7.70); Neutrophils % (A) 93.1 %; Platelet Count 231 10*3/uL (140-440); RBC 3.40 10*6/uL (4.40-5.60); RDW 15.3 % (11.5-14.5); WBC 20.58 10*3/uL (4.50-10.00)
--- NOTE | 2025-05-11 09:00 | P.PN ---
Subjective Progress Note Date: 05/11/25 Principal diagnosis: Respiratory failure Patient sitting up in the chair. Remains on Airvo. Apparently was not tolerating trach collar. White blood cell count improved today. No fevers. Tolerating tube feeds at goal. Objective - Vital Signs Vital signs: Vital Signs Temp 97.8 F 05/11/25 08:00 Pulse 73 05/11/25 08:44 Resp 16 05/11/25 08:00 BP 111/80 05/11/25 08:00 Pulse Ox 95 05/11/25 08:16 FiO2 50 05/11/25 08:16 Intake & Output 05/10/25 05/11/25 05/11/25 18:59 06:59 18:59 Intake Total 1030 1050 110 Output Total 2780 2270 160 Balance -1750 -1220 -50 Intake: IV 220 210 20 Cefepime 2 gm In Sodium 100 100 Chloride 0.9% 100 ml @ 25 mls/hr IVPB Q8H JÚNIOR Rx#: [id number] Sodium Chloride 0.9% 1, 120 110 20 000 ml @ 10 mls/hr IV . Q24H JÚNIOR Rx#:[id number] Tube Feeding 720 720 60 Other 90 120 30 Output: Urine 2780 2270 160 Other: Voiding Method Indwelling Catheter Indwelling Catheter ABP, PAP, CO, CI - Last Documented Arterial Blood Pressure 147/60 - Exam Tracheostomy and PEG tube incisions clean and dry, no erythema, no appreciable drainage - Labs CBC & Chem 7: 05/11/25 06:57 05/11/25 05:42 Labs: Abnormal Lab Results - Last 24 Hours (Table) 05/10/25 05/10/25 05/10/25 Range/Units 11:36 16:48 23:03 WBC (4.50-10.00) 10*3/uL RBC (4.40-5.60) 10*6/uL Hgb (13.0-17.0) g/dL Hct (39.6-50.0) % Immature Gran # (0.00-0.04) 10*3/uL Neutrophils # (1.80-7.70) 10*3/uL Lymphocytes # (0.90-5.00) 10*3/uL Eosinophils # (0.04-0.35) 10*3/uL Sodium (137-145) mmol/L Chloride (98-107) mmol/L Carbon Dioxide (22-30) mmol/L BUN (9-20) mg/dL Creatinine (0.66-1.25) mg/dL Glucose (74-99) mg/dL POC Glucose (mg/dL) 206 H 197 H 233 H (70-110) mg/dL Calcium (8.4-10.2) mg/dL 05/11/25 05/11/25 05/11/25 Range/Units 05:11 05:42 06:57 WBC 20.58 H (4.50-10.00) 10*3/uL RBC 3.40 L (4.40-5.60) 10*6/uL Hgb 9.7 L (13.0-17.0) g/dL Hct 29.4 L (39.6-50.0) % Immature Gran # 0.13 H (0.00-0.04) 10*3/uL Neutrophils # 19.14 H (1.80-7.70) 10*3/uL Lymphocytes # 0.44 L (0.90-5.00) 10*3/uL Eosinophils # 0.00 L (0.04-0.35) 10*3/uL Sodium 134 L (137-145) mmol/L Chloride 90 L (98-107) mmol/L Carbon Dioxide 39 H (22-30) mmol/L BUN 37 H (9-20) mg/dL Creatinine 0.43 L (0.66-1.25) mg/dL Glucose 164 H (74-99) mg/dL POC Glucose (mg/dL) 206 H (70-110) mg/dL Calcium 8.2 L (8.4-10.2) mg/dL Assessment and Plan (1) Respiratory failure Narrative/Plan: Patient continues to slowly improve. Continue tube feeds at goal. Continue weaning from ventilator as tolerated. No further surgical plans at this time. Will sign off. Please recontact if needed. Current Visit: Yes Status: Acute Code(s): J96.90 - RESPIRATORY FAILURE, UNSP, UNSP W HYPOXIA OR HYPERCAPNIA SNOMED Code(s): 118147148
--- NOTE | 2025-05-11 11:55 | P.PN ---
Subjective Progress Note Date: 05/11/25 Principal diagnosis: Cardiopulmonary arrest. A 64-year-old male patient presented to the emergency department with acute respiratory failure. The patient was unresponsive and in respiratory arrest. CPR was immediately initiated. The patient was given a round of epinephrine and CPR and the patient was intubated in the emergency department. He had return of spontaneous circulation. I reviewed the initial EKG post resuscitation and the patient was in normal sinus rhythm with a right bundle branch block pattern. The initial rhythm at the time of his cardiac arrest is not known. Nevertheless, I suspect that the patient had an acute hypoxic/hypercapnic respiratory failure as the patient postintubation was actively bronchospastic and wheezy. I saw the patient immediately post intubation and the patient had very limited air entry bilaterally, active bronchospastic and wheezy and while being on the mechanical ventilator, the patient's peak airway pressure was 50 and the blood gas showed a pH of 7.0 with a PCO2 more than 98 and a pO2 of 232 and this was done at that appointment for 50, rate of 20, FiO2 100% with a PEEP of 5. The chest x-ray was reviewed and it showed a small left-sided pleural effusion. The patient underwent a CT of the chest and a CAT scan of the abdomen. CT of the chest showed no evidence of any pulmonary embolism and the patient had no filling defects. No mediastinal lymphadenopathy or any other acute cardiopulmonary abnormalities. Lungs were essentially clear. CAT scan of the abdomen and pelvis showed left flank hematoma present since 04/22/2025 and this occurred following a TAVR procedure. The patient had a low-density lesion along the left lateral hemipelvis with some mild stranding measuring 7.7 x 4.5 x 13.4 cm in size, likely presenting an intramuscular seroma without any free fluid in the pelvis. Findings were essentially similar compared to the earlier CAT scan on 04/22/2025. No other abnormalities noted. CAT scan of the brain showed no acute intracranial abnormalities. Blood work showed a white cell count of 18.4 with a hemoglobin 9.5 and a platelet count of 516. Normal coagulation profile. K levels of 5.6, bicarb is at 33 with a BUN of 21 and creatinine 0.8. Lactic acid level was at 3.1. Troponins were 0.1 and 0.1 respectively x 2 with a proBNP level of 1000. BUN is 21 with a creatinine of 0.8 and UA was also noted with 4 WBCs. Based on his ongoing hypoxic respiratory failure, high airway pressures and severe bronchospasm wheezing, the patient was started on DuoNeb nebulizer treatments [id number], IV Solu-Medrol and patient was kept on propofol and the patient was also started on paralytics with Nimbex. IV fluids are currently running at the rate of 100 cc of normal saline and the patient is also on low- dose norepinephrine for hemodynamic support. 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 04/28/2025, the patient is being seen for a follow-up. The patient remains intubated on a mechanical ventilator. This morning, the patient sedated with propofol running at 50 mcg/kg/min and Nimbex at 1 mcg/kg/min. Is adequately sedated and paralyzed. He remains on mechanical ventilator, assist-control mode at rate of 30, tidal volume of 400, FiO2 50% with a PEEP of 5. Peak airway pressure is 33. The blood gas showed a pH of 7.24 with a PCO2 of 76 and PO2 of 82. Chest x-ray shows no acute abnormalities. Orotracheal tube was pushed in and it seems to be in satisfactory position. He has some interstitial opacities bilaterally along with background COPD. NG tube is not clearly seen. The patient is on normal saline at rate of 100 cc an hour. Urine output is in order of 40 cc an hour. Fluid balance is +712 cc over the past 24 hours. He is on low-dose norepinephrine running at 0.01 mcg/kg/min. The patient has been COPD and the patient is oxygen dependent and steroid-dependent outpatient basis the patient has been taking 50 mg of prednisone on an outpatient basis. WBC count is at 19 with a hemoglobin 10.2 and a platelet count of 410. Sodium is at 136, potassium is at 5.2, bicarb is at 34, BUN is 40 with a creatinine of 1.1. LFTs are abnormal with an AST of 1110 [place] [address] and a normal alkaline phosphatase. Blood sugar slightly elevated due to steroid use and the patient is on insulin sliding scale coverage. The patient is also on empiric antibiotic coverage with IV Zosyn. The left flank and abdominal hematoma remains unchanged. On 04/29/2025, the patient remains intubated on the mechanical ventilator. The patient is on propofol running at 50 mcg/kg/min and the patient is on Nimbex running at 2 mcg/kg/min. The patient is adequately sedated and paralyzed. This morning, he is on assist-control mode at rate of 30, tidal volume of 400, FiO2 50% with a PEEP of 5. The blood gas showed a pH of 7.28 with a PCO2 of 75 and PO2 of 96. The peak airway pressure is 34. Chest x-ray shows no acute abnormalities. Her procalcitonin level was at 0.97. The patient remains on vital high-protein at rate of 40 cc an hour. Fluid balance is +1.1 L over the past 24 hours and the patient is on normal Saint rate of 50 cc an hour. Echocardiogram showed ejection fraction of 65%, dilatation of the RV and the pulmonary artery pressure of around 55. The white cell count of 16.6 with a hemoglobin 9.8 and a platelet count of 395. Sodium is at 135, potassium is at 5.1, bicarbonate 37, BUN 60 with a creatinine of 1.08. AST is 412. ALT is at 1091. Total protein is at 5.7 with an albumin of 3.3. Remains on DuoNeb neb treatment [id number]. Remains on a combination of Perforomist and Pulmicort neb treatments twice a day and IV Solu-Medrol 60 mg every 6 hours. R emains on empiric antibiotic coverage with IV Rocephin. Remains on IV Solu- Medrol. Patient is off pressors for now. CAT scan of the abdomen and pelvis that was done at time of admission showed no significant intra-abdominal abnormalities. Left flank hematoma was essentially unchanged. The patient continues to have a stable hemoglobin and there is no significant drop in hemoglobin over the past 24 hours. He is post TAVR. He has an underlying rhythm that is sinus and the patient has a bundle branch block pattern. On 04/30/2025, the patient is being seen for a follow-up. Remains intubated on mechanical ventilator. The patient remains on propofol which is running at 50 mcg/kg/min and the patient is currently off paralytics. The morning blood gases showed a pH of 7.32 with a PCO2 of 80 and PO2 of 77. This was done on assist- control mode with a rate of 70, tidal volume of 400, FiO2 50% and PEEP of 5. Chest x-ray shows no acute pulmonary infiltrates. A drop in the respiratory rat e was down to 20 and FiO2 was dropped down to 40%. Subsequent blood gas showed a pH of 7.23 with a PCO2 of 94 and PO2 of 101. The patient was riding the mechanical ventilator and the patient is deeply sedated. Will gradually wean down his propofol. Meanwhile, morning blood draw showed a elevated potassium level and the patient had hyperkalemia. Potassium was at 6. The patient was given calcium gluconate, 10 units of insulin and Lokelma 10 mg. Subsequent potassium level improved. The the white cell count is at 19.3 with a hemoglobin 9.4 and a platelet count of 338. The sodium is at 139, most recent potassium level is down to 5.7, the serum bicarb is at 40, chloride is 96. The peak a irway pressure is around 35. The patient is on vital high-protein at rate of 55 cc an hour. The patient is also on Lantus insulin for blood sugar control and the patient receiving Lantus 25 units and NovoLog 8 units 3 times daily and a sliding scale coverage. Remains on bronchodilators. Remains on steroids. Remains on Perforomist and Pulmicort nebulized treatments. Remains on empiric antibiotic coverage with IV Rocephin. Sputum sample is positive for Proteus mirabilis and haemophilus. On today's evaluation of 05/01/2025, the patient is being seen for a follow-up. The patient is off paralytics and the patient is currently on propofol running at 35 mcg/kg/min. The patient currently is on a mechanical ventilator assist- control mode at rate of 30, tidal volume of 400, FiO2 of 50% with a PEEP of 5. Patient has a pH of 7.33 with a PCO2 of 79 and PO2 of 80. Sputum positive for Proteus and haemophilus and the patient remains on IV Rocephin. Chest x-ray shows no evidence of pneumonia. Peak airway pressure is around 34. IV fluids are KVO. Fluid balance is -1.1 L. Cardiac rhythm is sinus. No pressors. The patient remains on vital protein at rate of 55 cc an hour. Remains on bronchodilators. Remains on IV Solu-Medrol. Remains on Lantus insulin 25 units along with NovoLog sliding scale coverage. Last flank and abdominal hematoma is unchanged extending to the scrotum. No significant swelling. No drop in the hemoglobin. The blood work from today shows a WBC count of 19.7, hemoglobin 9.2 and platelet count of 307. Serum bicarbonate is 43, sodium is 145, potassium is at 5.3, chloride is 99. 05/02/2025, the patient remains intubated on mechanical ventilator. The patient remains on propofol running at 25 mcg/kg/min. Chest x-ray shows pulm interstitial infiltrates bilaterally. The patient's sputum sample was positive for Proteus and haemophilus influenza. The patient was treated with IV Rocephin. Nevertheless, this morning, the patient noted to be febrile and failed the fever workup will be done. Will repeat a sputum analysis. Will check a blood cultures. Antibiotics will be modified and the patient will be taken off Rocephin and started on IV cefepime. Patient will be also started on vancomycin pending further cultures. He is on assist-control mode of mechanical ventilation at rate of 30, tidal volume 400, FiO2 50% with a PEEP of 5. pH is a t 7.35 with a PCO2 of 78 and PO2 of 86. Peak airway pressure is around 30. Fluid balance is -1.1 L over the past 24 hours. The patient remains on vital high-protein at rate of 71 cc an hour. Lantus for blood sugar control 30 units and the cardiac rhythm is sinus. IV fluids are currently at KVO. Rest of the blood work shows a white cell count of 16, hemoglobin 9.3 and a platelet count of 286. Sodium levels at 151, potassium level is at 5, bicarb is at 45, BUN 50 and creatinine is at 1.03. Blood sugars are 244. LFTs are improving with a drop in the AST and ALT level. COVID-19 testing has been negative. Procalcitonin level is at 0.97. On 05/03/2025, the patient is being seen for a follow-up. The patient remains intubated on a mechanical ventilator. This will be a extremely difficult wean as the patient advanced COPD. The patient remains on propofol at the rate of 35 mcg/kg/min. The sedation holiday was given failed as the patient became tachypneic, hypoxic, tachycardic and he went into cardiac arrhythmias in the form of SVT. Subsequently, the patient was placed back on sedation the patient remains on propofol. The patient remains on assist-control mode at rate of 30, tidal volume of 400, FiO2 50% with a PEEP of 5. Blood gas from today shows a pH of 7.38 with a PCO2 of 70 and PO2 of 60. Chest x-ray findings are essentially unchanged. The patient remains on IV antibiotics as the patient has grown haemophilus and Proteus in the sputum and the patient currently is on IV cefepime. He is also on vancomycin as an empiric antibiotic coverage. Awaiting follow-up sputum samples. Fluid balance is -930 cc over the past 24 hours. The patient is on vital high-protein at rate of 71 cc an hour. Lantus insulin at 30 units/day along with NovoLog 10 units with meal and sliding scale coverage. No pressors for now. Continues to have short runs of a flutter/SVT. Current cardiac rhythm is sinus. Sodium levels at 155, potassium levels of 4.9, BUN 51 with a creatinine of 0.8. WBC count of 13.2, hemoglobin 9.7 and platelet count is at 275. IV fluids are currently at KVO. Seen today on 05/04/2025, patient remains in the ICU intubated and mechanically ventilated, on assist-control rate of 30 tidal volume 450 FiO2 50% and PEEP of 5 ABG showed a pO2 of 109 pCO2 68 pH of 7.38. Patient remains on D5W at 100 cc/h propofol 35 mcg/kg/min vital HP at 71 cc/h. Patient is also to receive free water 200 mL 4 times daily via orogastric tube. Patient apparently failed weaning x 2 and he is not ready to be weaned mostly because of his mental status. Today I discussed his condition with the discussed the option of tracheostomy and PEG tube placement discussed the option of comfort care measures. The seems to be very inclined to proceed with tracheostomy and PEG tube placement and continue to try to wean after tracheostomy and PEG tube placement. Patient may actually require even placement after tracheostomy and PEG tube placement depending on his overall clinical status at the time. For now patient will be given trials of weaning from propofol as tolerated, and would like to assess mental status off sedation. And that seems to be difficult to do. Dr. Mchugh already saw the patient for possible tracheostomy and PEG tube placement, and will proceed to do so. Chest x-ray today showed small scattered reticular opacities unchanged, endotracheal tube seems to be high above the yakelin that needs to be advanced patient has a nasogastric tube in place. And he has a left internal jugular central line. Patient was seen today on 05/05/2025, remains intubated and mechanically ventilated. He is on assist-control rate of 30 tidal volume 450 FiO2 45%, PEEP of 5. ABG showed a pO2 of 84 pCO2 65 pH of 7.41, patient is arousable, follows simple instructions but he is profoundly weak. Family is at bedside, and we discussed the option of tracheostomy versus comfort care, would like to proceed with tracheostomy and PEG tube placement, and we will let general surgery aware of this. His WBC count is 16.4 hemoglobin 9.4 electrolytes are normal potassium is a bit high at 5.5, BUN is 50 creatinine 0.67. His sputum was positive for Proteus and for haemophilus. Patient remains on cefepime. Chest x-ray showed small scattered reticular opacities, basically unchanged. Patient was seen today on 05/06/2025, he underwent uneventful tracheostomy and PEG tube placement yesterday. Remains intubated mechanically ventilated, he is on assist-control rate of 30 tidal volume 450 FiO2 45% and PEEP of 5 ABG showed a pO2 of 68 pCO2 55 pH of 7.46. Patient is still on vital HP at 20 cc/h D5W at 100 cc/h, WBC count is 22.3 hemoglobin is 9.5 electrolytes showed sodium down to 147 bicarb is 39 BUN 41 creatinine 0.63. Chest x-ray showed relatively stable findings, no evidence of effusion no evidence of consolidation, no infiltrates. Tracheostomy in proper position and lines are in proper position. Patient was seen today on 05/07/2025, remains in ICU intubated mechanically ventilated, patient is on assist-control rate of 30 tidal volume 450 FiO2 45% and PEEP of 5 patient is awake, follows simple instructions, hence I recommended a trial of pressure support of 12 and CPAP today and keep him on this mode of mechanical ventilation as tolerated. He is on D5W at 100 cc/h, patient is on vital HP at 50 cc/h. ABG showed a pO2 of 66 pCO2 54 pH of 7.47. Chest x-ray showed bibasilar atelectasis, possible infiltrates. Tracheostomy seems to be intact. Lines are in proper position. WBC count is 27 hemoglobin 9.3 platelets are 150, basic metabolic profile is normal bicarb is 37 BUN is 37 creatinine 0.45 Patient was seen today on 05/08/2025, patient remains in the ICU, intubated and mechanically ventilated, patient tolerated quite well a trial of pressure support of 12 and CPAP yesterday, however at night he was placed back on AC mode of mechanical ventilation. This morning the patient is on pressure support and CPAP again, he is on pressure support of 14/5, and I had him briefly on a pressure support of 8/5, patient was moving good tidal volume and did not seem to be in distress, then I recommended we proceed to trach collar. He will have trach collar at 45%. Remains on IV fluid at KVO remains on vital HP at 60 cc/h remains on cefepime for Proteus and H. influenzae noted in the sputum. Chest x- ray is showing improvement in his overall opacities. Hence I am recommending a trial of weaning today to trach collar. Labs today showed persistently elevated WBC count of 28.9 hemoglobin 9.4 electrolytes are normal bicarb is 37 BUN is 34 creatinine 0.49. Seen today on 05/09/2025, patient remains in the ICU, he was placed on trach collar yesterday, continues to tolerate trach collar at 60%. Patient remains on vital HP via PEG tube at 60 mL/h, he is sitting at the bedside chair, he is not requiring any pressors. Urine output is decent about 50 cc/h, however his chest x-ray is showing some mild interstitial edema and I am recommending Lasix 40 mg IV push every 12 hours. Patient is quite edematous on physical examination. Continues to have leukocytosis with WBC count of 27.4 hemoglobin 10.2 electrolytes are normal bicarb is 36 BUN is 34 creatinine 0.54 Seen today on 05/10/2025, patient is tolerating trach collar quite well, remains on trach collar today, sitting at bedside chair, not in any distress. Consid ering the patient is having intermittent episodes of desaturation but he improved by changing trach collar to Airvo with FiO2 of 60% and flow of 60 L, patient to remain on Airvo connected to tracheostomy. And will titrate FiO2 accordingly. Nutrition vick the patient remains on vital HP at 60 mL/h he is also on Lasix 40 mg IV push twice daily and he remains on cefepime. Sputum cultures have shown Proteus mirabilis and haemophilus influenza, chest x-ray today showed low lung volumes and basilar opacities specially at the left base. WBC count is improving down to 26.15 hemoglobin 9.8 electrolytes are normal bicarb is 37 BUN is 34 creatinine 0.52 Progress note dated May 11, 2025. This is a 64-year-old male well-known to me. He has a history of severe COPD. He came into the hospital, on April 27, with a cardiopulmonary arrest. He did not show any progress towards weaning from mechanical ventilation, went for tracheostomy and PEG tube placement on May 05. He was previously in the [facility] between April 15 and April 23, having had a transcatheter aortic valve replacement, for aortic stenosis. Currently, he is on 60% trach collar, and goes between that, and Airvo. The patient is currently on saline at 20 cc an hour, and vital HP, at 60 cc an hour, which is goal. White count is 20.6, hemoglobin 9.7, hematocrit 29.4, plate count 231,000. Sodium 134, potassium 4.1, chlorides 90, CO2 39, BUN 37, creatinine 0.43. Glucose is 164. Calcium is 8.2. Sputum Gram stain was positive for Proteus mirabilis and Haemophilus influenzae. The patient is currently on cefepime. Chest x-ray shows no evidence of pleural effusion, focal consolidation, or pneumothorax. Objective - Vital Signs Vital signs: Vital Signs Temp 97.8 F 05/11/25 08:00 Pulse 75 05/11/25 10:00 Resp 13 05/11/25 10:00 BP 126/81 05/11/25 10:00 Pulse Ox 89 L 05/11/25 10:00 FiO2 50 05/11/25 10:00 Intake & Output 05/10/25 05/11/25 05/11/25 18:59 06:59 18:59 Intake Total 1030 1050 430 Output Total 2780 2270 910 Balance -1750 -1220 -480 Intake: IV 220 210 60 Cefepime 2 gm In Sodium 100 100 Chloride 0.9% 100 ml @ 25 mls/hr IVPB Q8H JÚNIOR Rx#: [id number] Sodium Chloride 0.9% 1, 120 110 60 000 ml @ 10 mls/hr IV . Q24H JÚNIOR Rx#:[id number] Intake, IV Titration 100 Amount Cefepime 2 gm In Sodium 100 Chloride 0.9% 100 ml @ 25 mls/hr IVPB Q8H JÚNIOR Rx#: [id number] Tube Feeding 720 720 180 Other 90 120 90 Output: Urine 2780 2270 910 Other: Voiding Method Indwelling Catheter Indwelling Catheter Indwelling Catheter ABP, PAP, CO, CI - Last Documented Arterial Blood Pressure 147/60 - Exam No acute distress, oriented 3. Currently, the patient has a midline tracheostomy tube. HEENT examination is grossly unremarkable. Mucous membranes are moist. No oral lesions. Neck supple. Full range of motion. No adenopathy thyromegaly or neck vein distention. Cardiovascular examination reveals regular rhythm rate. S1-S2 normal. No S3 or S4. No discernible murmur noted. Lungs reveal scattered bilateral rhonchi. Few scattered crackles. No wheezes. Breath sounds are equal bilaterally. Abdomen soft with bowel sounds. No masses or tenderness. PEG tube is noted. Extremities are intact. No cyanosis clubbing or edema. Skin is without rash or lesion. Neurologic examination is brief but nonfocal. - Labs CBC & Chem 7: 05/11/25 06:57 05/11/25 05:42 Labs: Abnormal Lab Results - Last 24 Hours (Table) 05/10/25 05/10/25 05/11/25 Range/Units 16:48 23:03 05:11 WBC (4.50-10.00) 10*3/uL RBC (4.40-5.60) 10*6/uL Hgb (13.0-17.0) g/dL Hct (39.6-50.0) % Immature Gran # (0.00-0.04) 10*3/uL Neutrophils # (1.80-7.70) 10*3/uL Lymphocytes # (0.90-5.00) 10*3/uL Eosinophils # (0.04-0.35) 10*3/uL Sodium (137-145) mmol/L Chloride (98-107) mmol/L Carbon Dioxide (22-30) mmol/L BUN (9-20) mg/dL Creatinine (0.66-1.25) mg/dL Glucose (74-99) mg/dL POC Glucose (mg/dL) 197 H 233 H 206 H (70-110) mg/dL Calcium (8.4-10.2) mg/dL 05/11/25 05/11/25 Range/Units 05:42 06:57 WBC 20.58 H (4.50-10.00) 10*3/uL RBC 3.40 L (4.40-5.60) 10*6/uL Hgb 9.7 L (13.0-17.0) g/dL Hct 29.4 L (39.6-50.0) % Immature Gran # 0.13 H (0.00-0.04) 10*3/uL Neutrophils # 19.14 H (1.80-7.70) 10*3/uL Lymphocytes # 0.44 L (0.90-5.00) 10*3/uL Eosinophils # 0.00 L (0.04-0.35) 10*3/uL Sodium 134 L (137-145) mmol/L Chloride 90 L (98-107) mmol/L Carbon Dioxide 39 H (22-30) mmol/L BUN 37 H (9-20) mg/dL Creatinine 0.43 L (0.66-1.25) mg/dL Glucose 164 H (74-99) mg/dL POC Glucose (mg/dL) (70-110) mg/dL Calcium 8.2 L (8.4-10.2) mg/dL Assessment and Plan Assessment: Cardiopulmonary arrest, on April 27, status post cardiopulmonary resuscitation, with return of spontaneous circulation. S/P intubation and mechanical ventilation, secondary to cardiopulmonary arrest, with failure to wean, and subsequent tracheostomy and PEG tube placement on May 05. Acute hypoxemic and hypercapnic respiratory failure secondary to severe COPD. Pneumonia, secondary to Proteus, and haemophilus. Recent transcatheter aortic valve replacement, with hospitalization between April 15 and April 23. Severe, end-stage, COPD. Obstructive sleep apnea syndrome, currently on CPAP. Peripheral artery disease. Benign essential hypertension. Type 2 diabetes mellitus. Multiple other medical problems and comorbidities. Plan: Plan dated May 11, 2025. The patient appears to be doing relatively well. He goes between trach collar, at 60%, and Airvo. Currently, the patient is getting saline at 20 cc an hour, and vital HP at 60 cc an hour, which is goal. The patient was recently hospitalized between April 15 and April 23 for transcatheter aortic valve replacement, for aortic stenosis. All labs, x-rays, and medications are reviewed. We will continue to follow the patient. The patient is being evaluated the possible discharge, to long-term acute care. No blood gases were done. The patient was admitted on April 27. We will continue to follow make recommendations. Labs, x-rays, and all medications are reviewed. Prognosis is guarded. Dictation was produced using [employer] dictation software. Please excuse any grammatical, word or spelling errors. Time with Patient: Greater than 30
[2025-05-11 12:22] LABS: Glucose,Whole Blood 152 mg/dL (70-110)
[2025-05-11 12:54] VITALS: BMI 29.8
--- NOTE | 2025-05-11 14:15 | P.PN ---
Subjective Progress Note Date: 05/11/25 64 year old M with PMH of COPD on 2L home O2, DM, HTN, GERD, HLD presents to the ED for SOB. History is obtained from his at bedside. Patient recently underwent TAVR on 04/15. Surgery was complicated with left flank hematoma. He had been doing well since his surgery. Over the past day, he reported increased shortness of breath not relieved with nebulized treatments. This prompted him to come to the ED. In the ED, he was noted to have agonal breathing and subsequently lost his pulse. MARLEE LOPEZ was called. He underwent high quality chest compressions, received 1 round of Epinephrine and intubated by Dr. Glass. ROSC was achieved. Vitals on arrival: BP 184/116, HR 105, RR 18, 98% on RA. Labs: WBC 18.42, RBC 3.95, Hg 11.5, Hct 36.9, Plt 516. INR 1.2. ABG pH 7, pCO2 > 98. K 5.6, Cl 93, bicarb 33, BUN 21, glu 117, T. Bili 2.8, AST 374, ALT 321. Trop 0.107. BNP 1030. UA neg LE or nitrite. EKG showed sinus tachycardia with RBBB CT brain no acute process CXR small L pleural effusion CTA chest no PE CT AP showed stable left flank hematoma Patient was admitted to ICU for further workup and management. Initially started on Zosyn IV for treatment on PNA. Procal 0.97. He was on Levophed for a short period of time initially. Sputum Cx grew Proteus and H. influenzae. Zosyn switched to Rocephin on 04/29. He started to spike fevers as high as 102.2F on 05/01, he was re-cultured and antibiotics was switched to Vancomycin and Cefepime. MRSA nares negative, Vancomycin discontinued. Repeat Sputum Cx, Blood cultures have all come back negative so far. Elevated Troponin of 0.107, 0.14, 0.214 with EKG showing sinus tachycardia and RBBB. Echo showed EF 65-70% with severe pulmonary hypertension. Cardiology recommending no further workup. CT surgery consulted as well given recent TAVR on 04/15, recommending no surgical intervention. He has been difficult to wean off the ventilator. Patient underwent tracheostomy and PEG tube placement on 05/05, patient was transitioned to trach collar on 05/08. 05/11 Patient was seen and examined. Feeling extremely weak. Antibiotics include Cefepime 2g IV TID (D9). Diureised with Lasix 40 mg IV BID, negative 2.97L fluid balance over the past 24H. CBC and CMP significant for WBC 20.58, RBC 3.4, Hg 9.7, Hct 29.4, Na 134, Cl 90, bicarb 39, BUN 37, Cr 0.43, glu 164. CXR shows no acute process. General: non toxic, no distress Derm: warm, dry Head: atraumatic, normocephalic, symmetric, trach collar intact Eyes: no lid lag, anicteric sclera Mouth: no lip lesion, mucus membranes moist Cardiovascular: S1S2 reg, no murmur Lungs: Decreased BS bilateral, no rhonchi, no rales , no accessory muscle use Ext: no gross muscle atrophy, 1-2+ LE pitting edema, no contractures Neuro: No FND Psych: AOx3 Based on my assessment of this patient, this patient meets a high complexity level of care. Fever with Sepsis likely secondary to PNA: Initial Sputum Cx Proteus and H. influenzae. Repeat BCx, MRSA nares, COVID, Sputum Cx negative. Maintained on Cefepime 2g IV TID (D9). Tylenol 650 mg PO Q6H PRN fever. Cardiac arrest likely secondary to COPD exacerbation: Duoneb Q4H scheduled and Q2H PRN SOB/wheezing. Pulmicort 1mg INH BID. Performist 20 mcg INH BID. Solumed rol 40 mg IV Q8H. Pulmonary on board. Cardiology and CT surgery recommend no further workup. Volume overload without diagnosis of CHF: Lasix 40 mg IV BID. Strict intake and outtake. Daily weights. Acute on chronic hypoxic hypercapnic respiratory failure likely due to above: Status post Diamox. Prerenal azotemia with mild hypoCl hypoNa with metabolic alkalosis likely due to forced diuresis. Left flank hematoma: CT AP shows stable left flank hematoma. Troponin elevation: Likely due to demand ischemia. ASA 81 mg PO QD. Simvastatin 80 mg PO QHS. Echo as above. Cardiology recommends no further workup. DM with hyperglycemia: A1c 7.5. Lantus 10 units QHS. Lispro 7 units Q6H. Continue MISS with Accuchecks ACHS along with hypoglycemic precautions. Normocytic anemia with Thrombocytosis: Likely due to left flank hematoma. Monitor and trend. Hyperbilirubinemia with Transaminitis: Likely due to hypotension. Improving. Trend. Resolved: Hypotension, HyperK, HyperNa CODE STATUS: FULL CODE DVT Prophylaxis: Lovenox SQ GI Prophylaxis: Protonix IV Designated medical POA if patient is not able to make medical decisions for themselves: I have reviewed the following human performance consultant notes: Pulmonary. I have reviewed the results of the following tests: CBC, BMP. I have ordered the following tests: CBC and BMP in the AM. I have discussed the care of this patient with the following independent histor margo: . I have independently interpreted the following test below: CXR. I have discussed the management of this patient with the following physician: Objective - Vital Signs Vital signs: Vital Signs Temp 97.9 F 05/11/25 12:00 Pulse 74 05/11/25 13:00 Resp 15 05/11/25 13:00 BP 113/67 05/11/25 13:00 Pulse Ox 90 L 05/11/25 13:00 FiO2 60 05/11/25 13:00 Intake & Output 05/10/25 05/11/25 05/11/25 18:59 06:59 18:59 Intake Total 1030 1050 760 Output Total 2780 2270 1410 Balance -1750 -1220 -650 Weight 99.9 kg Intake: IV 220 210 180 Cefepime 2 gm In Sodium 100 100 100 Chloride 0.9% 100 ml @ 25 mls/hr IVPB Q8H JÚNIOR Rx#: [id number] Sodium Chloride 0.9% 1, 120 110 80 000 ml @ 10 mls/hr IV . Q24H JÚNIOR Rx#:[id number] Intake, IV Titration 100 Amount Cefepime 2 gm In Sodium 100 Chloride 0.9% 100 ml @ 25 mls/hr IVPB Q8H JÚNIOR Rx#: [id number] Tube Feeding 720 720 360 Other 90 120 120 Output: Urine 2780 2270 1410 Other: Voiding Method Indwelling Catheter Indwelling Catheter Indwelling Catheter ABP, PAP, CO, CI - Last Documented Arterial Blood Pressure 147/60 - Labs CBC & Chem 7: 05/11/25 06:57 05/11/25 05:42 Labs: Abnormal Lab Results - Last 24 Hours (Table) 05/10/25 05/10/25 05/11/25 Range/Units 16:48 23:03 05:11 WBC (4.50-10.00) 10*3/uL RBC (4.40-5.60) 10*6/uL Hgb (13.0-17.0) g/dL Hct (39.6-50.0) % Immature Gran # (0.00-0.04) 10*3/uL Neutrophils # (1.80-7.70) 10*3/uL Lymphocytes # (0.90-5.00) 10*3/uL Eosinophils # (0.04-0.35) 10*3/uL Sodium (137-145) mmol/L Chloride (98-107) mmol/L Carbon Dioxide (22-30) mmol/L BUN (9-20) mg/dL Creatinine (0.66-1.25) mg/dL Glucose (74-99) mg/dL POC Glucose (mg/dL) 197 H 233 H 206 H (70-110) mg/dL Calcium (8.4-10.2) mg/dL 05/11/25 05/11/25 05/11/25 Range/Units 05:42 06:57 12:21 WBC 20.58 H (4.50-10.00) 10*3/uL RBC 3.40 L (4.40-5.60) 10*6/uL Hgb 9.7 L (13.0-17.0) g/dL Hct 29.4 L (39.6-50.0) % Immature Gran # 0.13 H (0.00-0.04) 10*3/uL Neutrophils # 19.14 H (1.80-7.70) 10*3/uL Lymphocytes # 0.44 L (0.90-5.00) 10*3/uL Eosinophils # 0.00 L (0.04-0.35) 10*3/uL Sodium 134 L (137-145) mmol/L Chloride 90 L (98-107) mmol/L Carbon Dioxide 39 H (22-30) mmol/L BUN 37 H (9-20) mg/dL Creatinine 0.43 L (0.66-1.25) mg/dL Glucose 164 H (74-99) mg/dL POC Glucose (mg/dL) 152 H (70-110) mg/dL Calcium 8.2 L (8.4-10.2) mg/dL
[2025-05-11 17:40] LABS: Glucose,Whole Blood 68 mg/dL (70-110)
[2025-05-11 17:40] LABS: Glucose,Whole Blood 66 mg/dL (70-110)
[2025-05-11] MEDS: DEXTROSE 50% SYRINGE 50 ML IVP PRN (17:43)
[2025-05-11 18:23] LABS: Glucose,Whole Blood 107 mg/dL (70-110)
[2025-05-11 23:33] LABS: Glucose,Whole Blood 184 mg/dL (70-110)
[2025-05-12 05:23] LABS: Glucose,Whole Blood 264 mg/dL (70-110)
[2025-05-12 07:00] LABS: African American GFR (CKD) >90 (>60 ml/min/1.73 sqM); Blood Urea Nitrogen 34 mg/dL (9-20); Calcium 8.0 mg/dL (8.4-10.2); Chloride 90 mmol/L (98-107); Glucose 251 mg/dL (74-99); Non-African American GFR(CKD) >90 (>60 ml/min/1.73 sqM); Potassium 4.1 mmol/L (3.5-5.1); Sodium 132 mmol/L (137-145)
[2025-05-12 07:07] LABS: Anion Gap 4 mmol/L
--- NOTE | 2025-05-12 07:12 | XR ---
EXAMINATION TYPE: XR chest 1V portable DATE OF EXAM: 05/12/2025 5:39 AM COMPARISON: Multiple radiographs, with the most recent on 05/11/2025 TECHNIQUE: XR chest 1V portable Portable AP radiograph of the chest. CLINICAL INDICATION:Male, 64 years old with history of follow up bibasilar infiltrates; shortness of breath FINDINGS: Lungs/Pleura: There is no evidence of pleural effusion or pneumothorax. Linear atelectasis within the left lung base. Pulmonary vascularity: Unremarkable. Heart/mediastinum: Cardiomediastinal silhouette is unremarkable. Musculoskeletal: No acute osseous pathology. Other findings: None Lines/Tubes: Tracheostomy cannula overlying the trachea in appropriate position. Left subclavian approach central venous catheter with distal tip in the mid SVC. IMPRESSION: 1. Linear atelectasis within the left lung base. 2. Stable support line and cannula. [facility], , 05/12/2025 7:09 AM
[2025-05-12 07:14] LABS: Carbon Dioxide 38 mmol/L (22-30)
[2025-05-12 08:55] LABS: Basophils # (A) 0.02 10*3/uL (0.00-0.10); Basophils % (A) 0.1 %; Eosinophils # (A) 0.00 10*3/uL (0.04-0.35); Eosinophils % (A) 0.0 %; HCT 33.3 % (39.6-50.0); HGB 10.8 g/dL (13.0-17.0); Lymphocytes # (A) 0.59 10*3/uL (0.90-5.00); Lymphocytes % (A) 3.0 %; MCH 29.0 pg (27.0-32.0); MCHC 32.4 g/dL (32.0-37.0); MCV 89.3 fL (80.0-97.0); Monocytes # (A) 0.81 10*3/uL (0.20-1.00); Monocytes % (A) 4.1 %; Neutrophils # (A) 18.17 10*3/uL (1.80-7.70); Neutrophils % (A) 92.1 %; Platelet Count 217 10*3/uL (140-440); RBC 3.73 10*6/uL (4.40-5.60); RDW 15.9 % (11.5-14.5); WBC 19.73 10*3/uL (4.50-10.00)
[2025-05-12 11:25] LABS: Glucose,Whole Blood 255 mg/dL (70-110)
--- NOTE | 2025-05-12 11:39 | P.PN ---
Subjective Progress Note Date: 05/12/25 Principal diagnosis: Cardiopulmonary arrest. A 64-year-old male patient presented to the emergency department with acute respiratory failure. The patient was unresponsive and in respiratory arrest. CPR was immediately initiated. The patient was given a round of epinephrine and CPR and the patient was intubated in the emergency department. He had return of spontaneous circulation. I reviewed the initial EKG post resuscitation and the patient was in normal sinus rhythm with a right bundle branch block pattern. The initial rhythm at the time of his cardiac arrest is not known. Nevertheless, I suspect that the patient had an acute hypoxic/hypercapnic respiratory failure as the patient postintubation was actively bronchospastic and wheezy. I saw the patient immediately post intubation and the patient had very limited air entry bilaterally, active bronchospastic and wheezy and while being on the mechanical ventilator, the patient's peak airway pressure was 50 and the blood gas showed a pH of 7.0 with a PCO2 more than 98 and a pO2 of 232 and this was done at that appointment for 50, rate of 20, FiO2 100% with a PEEP of 5. The chest x-ray was reviewed and it showed a small left-sided pleural effusion. The patient underwent a CT of the chest and a CAT scan of the abdomen. CT of the chest showed no evidence of any pulmonary embolism and the patient had no filling defects. No mediastinal lymphadenopathy or any other acute cardiopulmonary abnormalities. Lungs were essentially clear. CAT scan of the abdomen and pelvis showed left flank hematoma present since 04/22/2025 and this occurred following a TAVR procedure. The patient had a low-density lesion along the left lateral hemipelvis with some mild stranding measuring 7.7 x 4.5 x 13.4 cm in size, likely presenting an intramuscular seroma without any free fluid in the pelvis. Findings were essentially similar compared to the earlier CAT scan on 04/22/2025. No other abnormalities noted. CAT scan of the brain showed no acute intracranial abnormalities. Blood work showed a white cell count of 18.4 with a hemoglobin 9.5 and a platelet count of 516. Normal coagulation profile. K levels of 5.6, bicarb is at 33 with a BUN of 21 and creatinine 0.8. Lactic acid level was at 3.1. Troponins were 0.1 and 0.1 respectively x 2 with a proBNP level of 1000. BUN is 21 with a creatinine of 0.8 and UA was also noted with 4 WBCs. Based on his ongoing hypoxic respiratory failure, high airway pressures and severe bronchospasm wheezing, the patient was started on DuoNeb nebulizer treatments [id number], IV Solu-Medrol and patient was kept on propofol and the patient was also started on paralytics with Nimbex. IV fluids are currently running at the rate of 100 cc of normal saline and the patient is also on low- dose norepinephrine for hemodynamic support. 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 04/28/2025, the patient is being seen for a follow-up. The patient remains intubated on a mechanical ventilator. This morning, the patient sedated with propofol running at 50 mcg/kg/min and Nimbex at 1 mcg/kg/min. Is adequately sedated and paralyzed. He remains on mechanical ventilator, assist-control mode at rate of 30, tidal volume of 400, FiO2 50% with a PEEP of 5. Peak airway pressure is 33. The blood gas showed a pH of 7.24 with a PCO2 of 76 and PO2 of 82. Chest x-ray shows no acute abnormalities. Orotracheal tube was pushed in and it seems to be in satisfactory position. He has some interstitial opacities bilaterally along with background COPD. NG tube is not clearly seen. The patient is on normal saline at rate of 100 cc an hour. Urine output is in order of 40 cc an hour. Fluid balance is +712 cc over the past 24 hours. He is on low-dose norepinephrine running at 0.01 mcg/kg/min. The patient has been COPD and the patient is oxygen dependent and steroid-dependent outpatient basis the patient has been taking 50 mg of prednisone on an outpatient basis. WBC count is at 19 with a hemoglobin 10.2 and a platelet count of 410. Sodium is at 136, potassium is at 5.2, bicarb is at 34, BUN is 40 with a creatinine of 1.1. LFTs are abnormal with an AST of 1110 [place] [address] and a normal alkaline phosphatase. Blood sugar slightly elevated due to steroid use and the patient is on insulin sliding scale coverage. The patient is also on empiric antibiotic coverage with IV Zosyn. The left flank and abdominal hematoma remains unchanged. On 04/29/2025, the patient remains intubated on the mechanical ventilator. The patient is on propofol running at 50 mcg/kg/min and the patient is on Nimbex running at 2 mcg/kg/min. The patient is adequately sedated and paralyzed. This morning, he is on assist-control mode at rate of 30, tidal volume of 400, FiO2 50% with a PEEP of 5. The blood gas showed a pH of 7.28 with a PCO2 of 75 and PO2 of 96. The peak airway pressure is 34. Chest x-ray shows no acute abnormalities. Her procalcitonin level was at 0.97. The patient remains on vital high-protein at rate of 40 cc an hour. Fluid balance is +1.1 L over the past 24 hours and the patient is on normal Saint rate of 50 cc an hour. Echocardiogram showed ejection fraction of 65%, dilatation of the RV and the pulmonary artery pressure of around 55. The white cell count of 16.6 with a hemoglobin 9.8 and a platelet count of 395. Sodium is at 135, potassium is at 5.1, bicarbonate 37, BUN 60 with a creatinine of 1.08. AST is 412. ALT is at 1091. Total protein is at 5.7 with an albumin of 3.3. Remains on DuoNeb neb treatment [id number]. Remains on a combination of Perforomist and Pulmicort neb treatments twice a day and IV Solu-Medrol 60 mg every 6 hours. R emains on empiric antibiotic coverage with IV Rocephin. Remains on IV Solu- Medrol. Patient is off pressors for now. CAT scan of the abdomen and pelvis that was done at time of admission showed no significant intra-abdominal abnormalities. Left flank hematoma was essentially unchanged. The patient continues to have a stable hemoglobin and there is no significant drop in hemoglobin over the past 24 hours. He is post TAVR. He has an underlying rhythm that is sinus and the patient has a bundle branch block pattern. On 04/30/2025, the patient is being seen for a follow-up. Remains intubated on mechanical ventilator. The patient remains on propofol which is running at 50 mcg/kg/min and the patient is currently off paralytics. The morning blood gases showed a pH of 7.32 with a PCO2 of 80 and PO2 of 77. This was done on assist- control mode with a rate of 70, tidal volume of 400, FiO2 50% and PEEP of 5. Chest x-ray shows no acute pulmonary infiltrates. A drop in the respiratory rat e was down to 20 and FiO2 was dropped down to 40%. Subsequent blood gas showed a pH of 7.23 with a PCO2 of 94 and PO2 of 101. The patient was riding the mechanical ventilator and the patient is deeply sedated. Will gradually wean down his propofol. Meanwhile, morning blood draw showed a elevated potassium level and the patient had hyperkalemia. Potassium was at 6. The patient was given calcium gluconate, 10 units of insulin and Lokelma 10 mg. Subsequent potassium level improved. The the white cell count is at 19.3 with a hemoglobin 9.4 and a platelet count of 338. The sodium is at 139, most recent potassium level is down to 5.7, the serum bicarb is at 40, chloride is 96. The peak a irway pressure is around 35. The patient is on vital high-protein at rate of 55 cc an hour. The patient is also on Lantus insulin for blood sugar control and the patient receiving Lantus 25 units and NovoLog 8 units 3 times daily and a sliding scale coverage. Remains on bronchodilators. Remains on steroids. Remains on Perforomist and Pulmicort nebulized treatments. Remains on empiric antibiotic coverage with IV Rocephin. Sputum sample is positive for Proteus mirabilis and haemophilus. On today's evaluation of 05/01/2025, the patient is being seen for a follow-up. The patient is off paralytics and the patient is currently on propofol running at 35 mcg/kg/min. The patient currently is on a mechanical ventilator assist- control mode at rate of 30, tidal volume of 400, FiO2 of 50% with a PEEP of 5. Patient has a pH of 7.33 with a PCO2 of 79 and PO2 of 80. Sputum positive for Proteus and haemophilus and the patient remains on IV Rocephin. Chest x-ray shows no evidence of pneumonia. Peak airway pressure is around 34. IV fluids are KVO. Fluid balance is -1.1 L. Cardiac rhythm is sinus. No pressors. The patient remains on vital protein at rate of 55 cc an hour. Remains on bronchodilators. Remains on IV Solu-Medrol. Remains on Lantus insulin 25 units along with NovoLog sliding scale coverage. Last flank and abdominal hematoma is unchanged extending to the scrotum. No significant swelling. No drop in the hemoglobin. The blood work from today shows a WBC count of 19.7, hemoglobin 9.2 and platelet count of 307. Serum bicarbonate is 43, sodium is 145, potassium is at 5.3, chloride is 99. 05/02/2025, the patient remains intubated on mechanical ventilator. The patient remains on propofol running at 25 mcg/kg/min. Chest x-ray shows pulm interstitial infiltrates bilaterally. The patient's sputum sample was positive for Proteus and haemophilus influenza. The patient was treated with IV Rocephin. Nevertheless, this morning, the patient noted to be febrile and failed the fever workup will be done. Will repeat a sputum analysis. Will check a blood cultures. Antibiotics will be modified and the patient will be taken off Rocephin and started on IV cefepime. Patient will be also started on vancomycin pending further cultures. He is on assist-control mode of mechanical ventilation at rate of 30, tidal volume 400, FiO2 50% with a PEEP of 5. pH is a t 7.35 with a PCO2 of 78 and PO2 of 86. Peak airway pressure is around 30. Fluid balance is -1.1 L over the past 24 hours. The patient remains on vital high-protein at rate of 71 cc an hour. Lantus for blood sugar control 30 units and the cardiac rhythm is sinus. IV fluids are currently at KVO. Rest of the blood work shows a white cell count of 16, hemoglobin 9.3 and a platelet count of 286. Sodium levels at 151, potassium level is at 5, bicarb is at 45, BUN 50 and creatinine is at 1.03. Blood sugars are 244. LFTs are improving with a drop in the AST and ALT level. COVID-19 testing has been negative. Procalcitonin level is at 0.97. On 05/03/2025, the patient is being seen for a follow-up. The patient remains intubated on a mechanical ventilator. This will be a extremely difficult wean as the patient advanced COPD. The patient remains on propofol at the rate of 35 mcg/kg/min. The sedation holiday was given failed as the patient became tachypneic, hypoxic, tachycardic and he went into cardiac arrhythmias in the form of SVT. Subsequently, the patient was placed back on sedation the patient remains on propofol. The patient remains on assist-control mode at rate of 30, tidal volume of 400, FiO2 50% with a PEEP of 5. Blood gas from today shows a pH of 7.38 with a PCO2 of 70 and PO2 of 60. Chest x-ray findings are essentially unchanged. The patient remains on IV antibiotics as the patient has grown haemophilus and Proteus in the sputum and the patient currently is on IV cefepime. He is also on vancomycin as an empiric antibiotic coverage. Awaiting follow-up sputum samples. Fluid balance is -930 cc over the past 24 hours. The patient is on vital high-protein at rate of 71 cc an hour. Lantus insulin at 30 units/day along with NovoLog 10 units with meal and sliding scale coverage. No pressors for now. Continues to have short runs of a flutter/SVT. Current cardiac rhythm is sinus. Sodium levels at 155, potassium levels of 4.9, BUN 51 with a creatinine of 0.8. WBC count of 13.2, hemoglobin 9.7 and platelet count is at 275. IV fluids are currently at KVO. Seen today on 05/04/2025, patient remains in the ICU intubated and mechanically ventilated, on assist-control rate of 30 tidal volume 450 FiO2 50% and PEEP of 5 ABG showed a pO2 of 109 pCO2 68 pH of 7.38. Patient remains on D5W at 100 cc/h propofol 35 mcg/kg/min vital HP at 71 cc/h. Patient is also to receive free water 200 mL 4 times daily via orogastric tube. Patient apparently failed weaning x 2 and he is not ready to be weaned mostly because of his mental status. Today I discussed his condition with the discussed the option of tracheostomy and PEG tube placement discussed the option of comfort care measures. The seems to be very inclined to proceed with tracheostomy and PEG tube placement and continue to try to wean after tracheostomy and PEG tube placement. Patient may actually require even placement after tracheostomy and PEG tube placement depending on his overall clinical status at the time. For now patient will be given trials of weaning from propofol as tolerated, and would like to assess mental status off sedation. And that seems to be difficult to do. Dr. Mchugh already saw the patient for possible tracheostomy and PEG tube placement, and will proceed to do so. Chest x-ray today showed small scattered reticular opacities unchanged, endotracheal tube seems to be high above the yakelin that needs to be advanced patient has a nasogastric tube in place. And he has a left internal jugular central line. Patient was seen today on 05/05/2025, remains intubated and mechanically ventilated. He is on assist-control rate of 30 tidal volume 450 FiO2 45%, PEEP of 5. ABG showed a pO2 of 84 pCO2 65 pH of 7.41, patient is arousable, follows simple instructions but he is profoundly weak. Family is at bedside, and we discussed the option of tracheostomy versus comfort care, would like to proceed with tracheostomy and PEG tube placement, and we will let general surgery aware of this. His WBC count is 16.4 hemoglobin 9.4 electrolytes are normal potassium is a bit high at 5.5, BUN is 50 creatinine 0.67. His sputum was positive for Proteus and for haemophilus. Patient remains on cefepime. Chest x-ray showed small scattered reticular opacities, basically unchanged. Patient was seen today on 05/06/2025, he underwent uneventful tracheostomy and PEG tube placement yesterday. Remains intubated mechanically ventilated, he is on assist-control rate of 30 tidal volume 450 FiO2 45% and PEEP of 5 ABG showed a pO2 of 68 pCO2 55 pH of 7.46. Patient is still on vital HP at 20 cc/h D5W at 100 cc/h, WBC count is 22.3 hemoglobin is 9.5 electrolytes showed sodium down to 147 bicarb is 39 BUN 41 creatinine 0.63. Chest x-ray showed relatively stable findings, no evidence of effusion no evidence of consolidation, no infiltrates. Tracheostomy in proper position and lines are in proper position. Patient was seen today on 05/07/2025, remains in ICU intubated mechanically ventilated, patient is on assist-control rate of 30 tidal volume 450 FiO2 45% and PEEP of 5 patient is awake, follows simple instructions, hence I recommended a trial of pressure support of 12 and CPAP today and keep him on this mode of mechanical ventilation as tolerated. He is on D5W at 100 cc/h, patient is on vital HP at 50 cc/h. ABG showed a pO2 of 66 pCO2 54 pH of 7.47. Chest x-ray showed bibasilar atelectasis, possible infiltrates. Tracheostomy seems to be intact. Lines are in proper position. WBC count is 27 hemoglobin 9.3 platelets are 150, basic metabolic profile is normal bicarb is 37 BUN is 37 creatinine 0.45 Patient was seen today on 05/08/2025, patient remains in the ICU, intubated and mechanically ventilated, patient tolerated quite well a trial of pressure support of 12 and CPAP yesterday, however at night he was placed back on AC mode of mechanical ventilation. This morning the patient is on pressure support and CPAP again, he is on pressure support of 14/5, and I had him briefly on a pressure support of 8/5, patient was moving good tidal volume and did not seem to be in distress, then I recommended we proceed to trach collar. He will have trach collar at 45%. Remains on IV fluid at KVO remains on vital HP at 60 cc/h remains on cefepime for Proteus and H. influenzae noted in the sputum. Chest x- ray is showing improvement in his overall opacities. Hence I am recommending a trial of weaning today to trach collar. Labs today showed persistently elevated WBC count of 28.9 hemoglobin 9.4 electrolytes are normal bicarb is 37 BUN is 34 creatinine 0.49. Seen today on 05/09/2025, patient remains in the ICU, he was placed on trach collar yesterday, continues to tolerate trach collar at 60%. Patient remains on vital HP via PEG tube at 60 mL/h, he is sitting at the bedside chair, he is not requiring any pressors. Urine output is decent about 50 cc/h, however his chest x-ray is showing some mild interstitial edema and I am recommending Lasix 40 mg IV push every 12 hours. Patient is quite edematous on physical examination. Continues to have leukocytosis with WBC count of 27.4 hemoglobin 10.2 electrolytes are normal bicarb is 36 BUN is 34 creatinine 0.54 Seen today on 05/10/2025, patient is tolerating trach collar quite well, remains on trach collar today, sitting at bedside chair, not in any distress. Consid ering the patient is having intermittent episodes of desaturation but he improved by changing trach collar to Airvo with FiO2 of 60% and flow of 60 L, patient to remain on Airvo connected to tracheostomy. And will titrate FiO2 accordingly. Nutrition vick the patient remains on vital HP at 60 mL/h he is also on Lasix 40 mg IV push twice daily and he remains on cefepime. Sputum cultures have shown Proteus mirabilis and haemophilus influenza, chest x-ray today showed low lung volumes and basilar opacities specially at the left base. WBC count is improving down to 26.15 hemoglobin 9.8 electrolytes are normal bicarb is 37 BUN is 34 creatinine 0.52 Progress note dated May 11, 2025. This is a 64-year-old male well-known to me. He has a history of severe COPD. He came into the hospital, on April 27, with a cardiopulmonary arrest. He did not show any progress towards weaning from mechanical ventilation, went for tracheostomy and PEG tube placement on May 05. He was previously in the [facility] between April 15 and April 23, having had a transcatheter aortic valve replacement, for aortic stenosis. Currently, he is on 60% trach collar, and goes between that, and Airvo. The patient is currently on saline at 20 cc an hour, and vital HP, at 60 cc an hour, which is goal. White count is 20.6, hemoglobin 9.7, hematocrit 29.4, plate count 231,000. Sodium 134, potassium 4.1, chlorides 90, CO2 39, BUN 37, creatinine 0.43. Glucose is 164. Calcium is 8.2. Sputum Gram stain was positive for Proteus mirabilis and Haemophilus influenzae. The patient is currently on cefepime. Chest x-ray shows no evidence of pleural effusion, focal consolidation, or pneumothorax. Progress note dated May 12, 2025. 64-year-old male, seen in room 253. He has a history of severe COPD. The patient came to the hospital on April 27 with cardiopulmonary arrest. He did not show any progress towards weaning from mechanical ventilation, and had tracheostomy and PEG tube placement, May 05. He was previously in the hospital between April 15 through April 23, having had a transcatheter aortic valve repl acement, for aortic stenosis. Currently, the patient is on 6 L nasal cannula. He seems to be doing better on left, than 60% trach collar. He is getting Jevity 1.5 at 40, with a goal of 63 cc an hour. He is also on saline at 20 cc. He continues on cefepime, for sputum sampling showing both Proteus and haemophilus. Clinically, the patient is doing well. White count is 19.7, hemoglobin 10.8, hematocrit 33.3, platelet count 317,000. Sodium 132, potassium 4.1, chlorides 90, CO2 38, BUN 34, creatinine 0.48. Calcium is 8. Glucose is 255. Chest x-ray shows some basilar atelectasis. Objective - Vital Signs Vital signs: Vital Signs Temp 97.1 F L 05/12/25 08:00 Pulse 72 05/12/25 11:00 Resp 15 05/12/25 11:00 BP 125/75 05/12/25 11:00 Pulse Ox 96 05/12/25 11:00 FiO2 60 05/12/25 08:00 Intake & Output 05/11/25 05/12/25 05/12/25 18:59 06:59 18:59 Intake Total 1230 830 350 Output Total 1615 1810 1050 Balance -385 -980 -700 Weight 99.9 kg 96.5 kg Intake: IV 320 320 160 Cefepime 2 gm In Sodium 200 100 100 Chloride 0.9% 100 ml @ 25 mls/hr IVPB Q8H JÚNIOR Rx#: [id number] Sodium Chloride 0.9% 1, 120 220 60 000 ml @ 10 mls/hr IV . Q24H JÚNIOR Rx#:[id number] Intake, IV Titration 100 Amount Cefepime 2 gm In Sodium 100 Chloride 0.9% 100 ml @ 25 mls/hr IVPB Q8H JÚNIOR Rx#: [id number] Tube Feeding 660 420 160 Other 150 90 30 Output: Urine 1615 1810 1050 Other: Voiding Method Indwelling Catheter Indwelling Catheter Indwelling Catheter ABP, PAP, CO, CI - Last Documented Arterial Blood Pressure 147/60 - Exam No acute distress, oriented 3. Currently, the patient has a midline tracheostomy tube. HEENT examination is grossly unremarkable. Mucous membranes are moist. No oral lesions. Neck supple. Full range of motion. No adenopathy thyromegaly or neck vein distention. Cardiovascular examination reveals regular rhythm rate. S1-S2 normal. No S3 or S4. No discernible murmur noted. Lungs reveal scattered bilateral rhonchi. Few scattered crackles. No wheezes. Breath sounds are equal bilaterally. Abdomen soft with bowel sounds. No masses or tenderness. PEG tube is noted. Extremities are intact. No cyanosis clubbing or edema. Skin is without rash or lesion. Neurologic examination is brief but nonfocal. - Labs CBC & Chem 7: 05/12/25 08:43 05/12/25 06:29 Labs: Abnormal Lab Results - Last 24 Hours (Table) 05/11/25 05/11/25 05/11/25 Range/Units 12:21 17:37 17:39 WBC (4.50-10.00) 10*3/uL RBC (4.40-5.60) 10*6/uL Hgb (13.0-17.0) g/dL Hct (39.6-50.0) % Immature Gran # (0.00-0.04) 10*3/uL Neutrophils # (1.80-7.70) 10*3/uL Lymphocytes # (0.90-5.00) 10*3/uL Eosinophils # (0.04-0.35) 10*3/uL Sodium (137-145) mmol/L Chloride (98-107) mmol/L Carbon Dioxide (22-30) mmol/L BUN (9-20) mg/dL Creatinine (0.66-1.25) mg/dL Glucose (74-99) mg/dL POC Glucose (mg/dL) 152 H 68 L 66 L (70-110) mg/dL Calcium (8.4-10.2) mg/dL 05/11/25 05/12/25 05/12/25 Range/Units 23:31 05:22 06:29 WBC (4.50-10.00) 10*3/uL RBC (4.40-5.60) 10*6/uL Hgb (13.0-17.0) g/dL Hct (39.6-50.0) % Immature Gran # (0.00-0.04) 10*3/uL Neutrophils # (1.80-7.70) 10*3/uL Lymphocytes # (0.90-5.00) 10*3/uL Eosinophils # (0.04-0.35) 10*3/uL Sodium 132 L (137-145) mmol/L Chloride 90 L (98-107) mmol/L Carbon Dioxide 38 H (22-30) mmol/L BUN 34 H (9-20) mg/dL Creatinine 0.48 L (0.66-1.25) mg/dL Glucose 251 H (74-99) mg/dL POC Glucose (mg/dL) 184 H 264 H (70-110) mg/dL Calcium 8.0 L (8.4-10.2) mg/dL 05/12/25 05/12/25 Range/Units 08:43 11:23 WBC 19.73 H (4.50-10.00) 10*3/uL RBC 3.73 L (4.40-5.60) 10*6/uL Hgb 10.8 L (13.0-17.0) g/dL Hct 33.3 L (39.6-50.0) % Immature Gran # 0.14 H (0.00-0.04) 10*3/uL Neutrophils # 18.17 H (1.80-7.70) 10*3/uL Lymphocytes # 0.59 L (0.90-5.00) 10*3/uL Eosinophils # 0.00 L (0.04-0.35) 10*3/uL Sodium (137-145) mmol/L Chloride (98-107) mmol/L Carbon Dioxide (22-30) mmol/L BUN (9-20) mg/dL Creatinine (0.66-1.25) mg/dL Glucose (74-99) mg/dL POC Glucose (mg/dL) 255 H (70-110) mg/dL Calcium (8.4-10.2) mg/dL Assessment and Plan Assessment: Cardiopulmonary arrest, on April 27, status post cardiopulmonary resuscitation, with return of spontaneous circulation. S/P intubation and mechanical ventilation, secondary to cardiopulmonary arrest, with failure to wean, and subsequent tracheostomy and PEG tube placement on May 05. Acute hypoxemic and hypercapnic respiratory failure secondary to severe COPD. Pneumonia, secondary to Proteus, and haemophilus. Recent transcatheter aortic valve replacement, with hospitalization between April 15 and April 23. Severe, end-stage, COPD. Obstructive sleep apnea syndrome, currently on CPAP. Peripheral artery disease. Benign essential hypertension. Type 2 diabetes mellitus. Multiple other medical problems and comorbidities. Plan: Plan dated May 11, 2025. The patient appears to be doing relatively well. He goes between Trist collar, at 60%, and Airvo. Currently, the patient is getting saline at 20 cc an hour, and vital HP at 60 cc an hour, which is goal. The patient was recently hospitalized between April 15 and April 23 for transcatheter aortic valve replacement, for aortic stenosis. All labs, x-rays, and medications are reviewed. We will continue to follow the patient. The patient is being evaluated the possible discharge, to long-term acute care. No blood gases were done. The patient was admitted on April 27. We will continue to follow make recommendations. Labs, x-rays, and all medications are reviewed. Prognosis is guarded. Dictation was produced using mVisum software. Please excuse any grammatical, word or spelling errors. Plan dated May 12, 2025. The patient is seen today in room 253. The patient was previously on a trach collar. Currently on nasal cannula, 6 L. Patient is getting Jevity 1.5, at 40 cc an hour, with a goal of 63 cc an hour. The patient is off of so receiving saline at 20 cc an hour. The patient continues on cefepime. Sputum sampling was positive for both Proteus, and haemophilus. All labs, x-rays, and medications were reviewed. Overall prognosis remains guarded. The patient will likely end up in a rehab facility. We will continue to follow and make recommendations. All labs x-rays and medications were reviewed. Prognosis is guarded. Dictation was produced using mVisum software. Please excuse any grammatical, word or spelling errors. Time with Patient: Greater than 30
--- NOTE | 2025-05-12 12:32 | P.DS ---
Providers Date of admission: 04/27/25 17:31 Expected date of discharge: 05/12/25 Attending physician: Flora Willard MD Consults: 04/27/25 17:33 Consult Physician Routine Consulting Provider: Yosi Kelley Consult Reason/Comments: cardiac arrest, Trop elevation Do you want consulting provider notified?: Yes Consult Physician Routine Consulting Provider: Sade Yeager Consult Reason/Comments: cardiac arrest Do you want consulting provider notified?: Already Contacted Consult Physician Routine Consulting Provider: Keesha Young Consult Reason/Comments: cardiac arrest h/o tavr Do you want consulting provider notified?: Yes Primary care physician: [facility] Course: 64 year old M with PMH of COPD on 2L home O2, DM, HTN, GERD, HLD presents to the ED for SOB. History is obtained from his at bedside. Patient recently underwent TAVR on 04/15. Surgery was complicated with left flank hematoma. He had been doing well since his surgery. Over the past day, he reported increased shortness of breath not relieved with nebulized treatments. This prompted him to come to the ED. In the ED, he was noted to have agonal breathing and subsequently lost his pulse. CODE BLUE was called. He underwent high quality chest compressions, received 1 round of Epinephrine and intubated by Dr. Glass. ROSC was achieved. Vitals on arrival: BP 184/116, HR 105, RR 18, 98% on RA. Labs: WBC 18.42, RBC 3.95, Hg 11.5, Hct 36.9, Plt 516. INR 1.2. ABG pH 7, pCO2 > 98. K 5.6, Cl 93, bicarb 33, BUN 21, glu 117, T. Bili 2.8, AST 374, ALT 321. Trop 0.107. BNP 1030. UA neg LE or nitrite. EKG showed sinus tachycardia with RBBB CT brain no acute process CXR small L pleural effusion CTA chest no PE CT AP showed stable left flank hematoma Patient was admitted to ICU for further workup and management. Initially started on Zosyn IV for treatment on PNA. Procal 0.97. He was on Levophed for a short period of time initially. Sputum Cx grew Proteus and H. influenzae. Zosyn switched to Rocephin on 04/29. He started to spike fevers as high as 102.2F on 05/01, he was re-cultured and antibiotics was switched to Vancomycin and Cefepime. MRSA nares negative, Vancomycin discontinued. Repeat Sputum Cx, Blood cultures have all come back negative so far. Elevated Troponin of 0.107, 0.14, 0.214 with EKG showing sinus tachycardia and RBBB. Echo showed EF 65-70% with severe pulmonary hypertension. Cardiology recommending no further workup. CT surgery consulted as well given recent TAVR on 04/15, recommending no surgical intervention. He has been difficult to wean off the ventilator. Patient underwent tracheostomy and PEG tube placement on 05/05, patient was transitioned to [facility] collar on 05/08. 05/12 Patient was seen and examined. Feeling extremely weak. Antibiotics include Cefepime 2g IV TID (D10). Diureised with Lasix 40 mg IV BID, negative 1.365L fluid balance over the past 24H. CBC and CMP significant for WBC 19.73, RBC 3.73, Hg 10.8, Hct 33.3, Na 132, Cl 90, bicarb 38, BUN 34, Cr 0.48, glu 251, Ca 8. CXR shows no acute process. Discharge Plan: Plans for LTAC Diet: Cardiac SVT during hospitalization - Amiodarone 200 mg PO QD and taper. Follow up with Cardiology within 1 week. Follow up with Pulmonary and CT surgery within 1 week. Follow up with PCP within 1-2 days. Prednisone taper - 40 mg PO QD x 3 days, 30 mg PO QD x 3 days, 20 mg PO QD x 3 days 10 mg PO QD after that. General: non toxic, no distress Derm: warm, dry Head: atraumatic, normocephalic, symmetric, trach collar intact Eyes: no lid lag, anicteric sclera Mouth: no lip lesion, mucus membranes moist Cardiovascular: S1S2 reg, no murmur Lungs: Decreased BS bilateral, no rhonchi, no rales , no accessory muscle use Ext: no gross muscle atrophy, 1+ LE pitting edema, no contractures Neuro: No FND Psych: AOx3 Discharge Diagnosis: Fever with Sepsis likely secondary to PNA Cardiac arrest likely secondary to COPD exacerbation Volume overload without diagnosis of CHF Acute on chronic hypoxic hypercapnic respiratory failure likely due to above SVT Prerenal azotemia with mild hypoCl hypoNa with metabolic alkalosis likely due to forced diuresis. Left flank hematoma Troponin elevation DM with hyperglycemia Normocytic anemia with Thrombocytosis Hyperbilirubinemia with Transaminitis Resolved: Hypotension, HyperK, HyperNa This complex discharge took 35 minutes to complete. Patient Condition at Discharge: Stable Plan - Discharge Summary Discharge Rx Participant: No New Discharge Prescriptions: New Amiodarone [Cordarone] 200 mg PO DAILY tab Ipratropium-Albuterol Nebulize [Duoneb 0.5 mg-3 mg/3 ml Soln] 3 ml INHALATION RT-Q2H PRN each PRN Reason: Shortness Of Breath Or Wheezing INSULIN LISPRO (HumaLOG) [HumaLOG] 0 unit SQ Q6H each predniSONE See Taper PO DIRECTED #30 tab Formoterol Fumarate [Perforomist] 20 mcg INHALATION RT-BID ml Budesonide [Pulmicort] 1 mg INHALATION RT-BID ml Acetaminophen Tab [Tylenol] 650 mg PO Q6HR PRN tab PRN Reason: Mild Pain Or Fever > 100.5 HYDROcodone/APAP 7.5-325MG [Dolph 7.5-325] 1 tab PO Q4H PRN 3 Days #18 tab PRN Reason: Pain Continue Simvastatin 80 mg PO HS Omeprazole 40 mg PO DAILY Ipratropium-Albuterol Nebulize [Duoneb 0.5 mg-3 mg/3 ml Soln] 3 ml INHALATION RT-Q6H Albuterol Inhaler [Ventolin Hfa Inhaler] 2 puff INHALATION RT-Q6H PRN PRN Reason: Shortness Of Breath Aspirin EC [Ecotrin Low Dose] 81 mg PO DAILY Furosemide [Lasix] 40 mg PO DAILY #7 tablet Fluticasone Nasal [place] [Flonase Nasal [place]] 1 spray EA NOSTRIL BID Ipratropium/Albuter 20-100Mcg [Combivent Respimat 20-100Mcg Inhaler] 1 puff INHALATION RT-QID Mometasone/Formoterol [Dulera 100 Mcg-5 Mcg Inhaler] 2 puff INHALATION RT-BID Discontinued SITagliptin [Sitagliptin] 100 mg PO DAILY Insulin Glargine,Hum.rec.anlog [Lantus Solostar Pen] 29 units SQ HS predniSONE 10 mg PO DAILY metFORMIN HCL [Glucophage] 1,000 mg PO BID #0 Potassium Chloride [Klor-Con M20] 20 meq PO DAILY Lisinopril-Hctz 20-25 mg [Zestoretic 20-25] 1 tab PO DAILY Discharge Medication List Simvastatin 80 mg PO HS 08/14/18 [History] Omeprazole 40 mg PO DAILY 03/14/19 [History] Albuterol Inhaler [Ventolin Hfa Inhaler] 2 puff INHALATION RT-Q6H PRN 09/01/24 [History] Aspirin EC [Ecotrin Low Dose] 81 mg PO DAILY 04/22/25 [History] Ipratropium-Albuterol Nebulize [Duoneb 0.5 mg-3 mg/3 ml Soln] 3 ml INHALATION RT-Q6H 04/22/25 [History] Furosemide [Lasix] 40 mg PO DAILY #7 tablet 04/23/25 [Rx] Fluticasone Nasal [place] [Flonase Nasal [place]] 1 spray EA NOSTRIL BID 04/27/25 [History] Ipratropium/Albuter 20-100Mcg [Combivent Respimat 20-100Mcg Inhaler] 1 puff INHALATION RT-QID 04/27/25 [History] Mometasone/Formoterol [Dulera 100 Mcg-5 Mcg Inhaler] 2 puff INHALATION RT-BID 04/27/25 [History] Acetaminophen Tab [Tylenol] 650 mg PO Q6HR PRN tab 05/12/25 [Rx] Amiodarone [Cordarone] 200 mg PO DAILY tab 05/12/25 [Rx] Budesonide [Pulmicort] 1 mg INHALATION RT-BID ml 05/12/25 [Rx] Formoterol Fumarate [Perforomist] 20 mcg INHALATION RT-BID ml 05/12/25 [Rx] HYDROcodone/APAP 7.5-325MG [Dolph 7.5-325] 1 tab PO Q4H PRN 3 Days #18 tab 05/12/25 [Rx] INSULIN LISPRO (HumaLOG) [HumaLOG] 0 unit SQ Q6H each 05/12/25 [Rx] Ipratropium-Albuterol Nebulize [Duoneb 0.5 mg-3 mg/3 ml Soln] 3 ml INHALATION RT-Q2H PRN each 05/12/25 [Rx] predniSONE See Taper PO DIRECTED #30 tab 05/12/25 [Rx] Follow up Appointment(s)/Referral(s): Aden Venegas MD [Medical Doctor] - 1 Week Chema Gillis MD [STAFF PHYSICIAN] - 1 Week Elton Silvestre DO [Doctor of Osteopathic Medicine] - 1 Week Cecilio Georges DO [Primary Care Provider] - 1-2 days Activity/Diet/Wound Care/Special Instructions: Diet: Cardiac SVT during hospitalization - Amiodarone 200 mg PO QD and taper. Follow up with Cardiology within 1 week. Follow up with Pulmonary and CT surgery within 1 week. Follow up with PCP within 1-2 days. Prednisone taper - 40 mg PO QD x 3 days, 30 mg PO QD x 3 days, 20 mg PO QD x 3 days 10 mg PO QD after that. Discharge Disposition: HOME SELF-CARE
[2025-05-12 13:12] VITALS: BP 109/71; PULSE 73; RESP 13; TEMP 97.3
--- NOTE | 2025-05-15 11:39 | CDI ---
Documentation Clarification Form Date: 05/15/2025 11:19:17 AM From: Zeina Olsen Phone: Admit Date: 04/27/2025 05:31:00 PM Patient Name: Aldo Mcguire Visit Number: [id number] Discharge Date: 05/12/2025 03:00:00 PM ATTENTION: The Clinical Documentation Specialists (CDI) and [facility] Coding Staff appreciate your assistance in clarifying documentation. Please respond to the clarification below the line at the bottom and electronically sign. The CDI & [facility] Coding staff will review the response and follow-up if needed. Please note: Queries are made part of the Legal Health Record. If you have any questions, please contact the author of this message via ITS. Doctor/Provider: Flora Willard Hypotension/shock is documented Procedure Note 04/28. Additional clarification regarding the type of shock is requested. Patient history/risk factors: 64yo M, sepsisd/thaemophilus and Proteus PNA, PEA d/t AECOPD, volume overload, ACH/HRF ETT w vent, SVT, hypoCl,hypoNa, metabolic alkalosisd/t forced diuresis, ABLA d/t left flankhematoma, DI, >DMII, thrombocytosis, hyperbilirubinemia, transaminitis, hypotension, hyperK, hyperNa Clinical Indicators: Vitals on arrival: BP 184/116, HR 105, RR 18, 98% onRA 04/28/25T 99.8 04:00 WI 112 08:27 RR 30 08:00 BP 111/7208:00 O2 9508:00 iO2 5007:55 Treatment: ETT >96hrs, vasopressor, Art line; Tfx to [facility] Please clarify the type of shock, if known: [ ] Septic Shock [ x ] Present on admission [ ] Not present on admission [ ] Hypovolemic shock [ ] Present on admission [ ] Not present on admission [ ] Other, please specify [ ] Present on admission [ ] Not present on admission [ ] Unable to determine (Template Last Revised: January 2021) MTDD
== END 2025-05-12 15:00 | DRG 4 ==
LOC: EC 15:01 → 2SICU 17:31
PROVIDERS: ADMIT Family Medicine; ATTEND Family Medicine
PROC: 0BH18EZ Insertion of Endotracheal Airway into Trachea, Via Natural or Artificial Opening Endoscopic (ICD-10-PCS; principal; 2025-04-27)
PROC: 5A1955Z Respiratory Ventilation, Greater than 96 Consecutive Hours (ICD-10-PCS; 2025-04-27)
PROC: 5A12012 Performance of Cardiac Output, Single, Manual (ICD-10-PCS; 2025-04-27)
PROC: 05H633Z Insertion of Infusion Device into Left Subclavian Vein, Percutaneous Approach (ICD-10-PCS; 2025-04-27)
PROC: 3E033XZ Introduction of Vasopressor into Peripheral Vein, Percutaneous Approach (ICD-10-PCS; 2025-04-27)
PROC: 03HY32Z Insertion of Monitoring Device into Upper Artery, Percutaneous Approach (ICD-10-PCS; 2025-04-28)
PROC: 4A133B1 Monitoring of Arterial Pressure, Peripheral, Percutaneous Approach (ICD-10-PCS; 2025-04-28)
PROC: 4A133J1 Monitoring of Arterial Pulse, Peripheral, Percutaneous Approach (ICD-10-PCS; 2025-04-28)
PROC: 0DH63UZ Insertion of Feeding Device into Stomach, Percutaneous Approach (ICD-10-PCS; 2025-05-05)
PROC: 3E0G76Z Introduction of Nutritional Substance into Upper GI, Via Natural or Artificial Opening (ICD-10-PCS; 2025-05-05)
PROC: 0B110Z4 Bypass Trachea to Cutaneous, Open Approach (ICD-10-PCS; 2025-05-05 13:30)
DX: J44.1 Chronic obstructive pulmonary disease with (acute) exacerbation (principal); A41.3 Sepsis due to Hemophilus influenzae; I46.8 Cardiac arrest due to other underlying condition; J14 Pneumonia due to Hemophilus influenzae; E43 Unspecified severe protein-calorie malnutrition; J96.21 Acute and chronic respiratory failure with hypoxia; J96.22 Acute and chronic respiratory failure with hypercapnia; R65.21 Severe sepsis with septic shock; E87.0 Hyperosmolality and hypernatremia; D62 Acute posthemorrhagic anemia; E87.1 Hypo-osmolality and hyponatremia; E11.65 Type 2 diabetes mellitus with hyperglycemia; I27.20 Pulmonary hypertension, unspecified; D64.9 Anemia, unspecified; I10 Essential (primary) hypertension; Z95.820 Peripheral vascular angioplasty status with implants and grafts; Z95.3 Presence of xenogenic heart valve; I24.89 Other forms of acute ischemic heart disease; I48.92 Unspecified atrial flutter; E87.20 Acidosis, unspecified; E87.3 Alkalosis; I47.10 Supraventricular tachycardia, unspecified; M96.843 Postprocedural seroma of a musculoskeletal structure following other procedure; E11.51 Type 2 diabetes mellitus with diabetic peripheral angiopathy without gangrene; Z79.4 Long term (current) use of insulin; I35.8 Other nonrheumatic aortic valve disorders; I70.202 Unspecified atherosclerosis of native arteries of extremities, left leg; D75.838 Other thrombocytosis; E87.5 Hyperkalemia; T38.0X5A Adverse effect of glucocorticoids and synthetic analogues, initial encounter; G47.33 Obstructive sleep apnea (adult) (pediatric); E78.5 Hyperlipidemia, unspecified; E80.6 Other disorders of bilirubin metabolism; E87.70 Fluid overload, unspecified; T50.2X5A Adverse effect of carbonic-anhydrase inhibitors, benzothiadiazides and other diuretics, initial encounter; E87.8 Other disorders of electrolyte and fluid balance, not elsewhere classified; R74.01 Elevation of levels of liver transaminase levels; F17.210 Nicotine dependence, cigarettes, uncomplicated; Z99.81 Dependence on supplemental oxygen; Z79.899 Other long term (current) drug therapy; Z79.82 Long term (current) use of aspirin; Z79.51 Long term (current) use of inhaled steroids; Z79.52 Long term (current) use of systemic steroids; Z79.84 Long term (current) use of oral hypoglycemic drugs; Z82.49 Family history of ischemic heart disease and other diseases of the circulatory system; Z82.5 Family history of asthma and other chronic lower respiratory diseases; Y83.8 Other surgical procedures as the cause of abnormal reaction of the patient, or of later complication, without mention of misadventure at the time of the procedure
CPT/HCPCS: 36415; 36600; 43246; 70450; 71045; 71275; 74177; 80048; 80053; 80202; 81001; 82565; 82805; 83036; 83605; 83735; 83880; 84132; 84145; 84484; 85025; 85027; 85610; 85730; 87040; 87070; 87077; 87186; 87205; 87449; 87635; 92950; 93306; 93308; 94002; 94003; 94640; 96365; 96368; 96375; 99291